=== PATIENT | male | born 1975 | race Hispanic/Latino ===

== ENCOUNTER 2020-02-20 15:45 | Emergency (ER) | payer BC, SELFPAY ==
--- OUTSIDE RECORDS SUMMARY | 2020-02-20 15:48 | XMS REPORT | Clinical Summary ---
:1975 Author Organization [facility] Address [address] [place] [address] Care Team Providers Name Role Phone Sharpless Primary Care Provider Unavailable Allergies Active Allergy Reactions Severity Noted Date Comments Penicillins 12/02/2016 Medications Medication Sig Dispensed Refills Start Date End Date Status amLODIPine (NORVASC) Take 10 mg by 0 Active 10 MG tablet mouth daily. aspirin 81 MG chewable Take 81 mg by 0 Active tablet mouth daily. calcium carbonate Take 1 tablet by 0 Active (TUMS) 500 mg chewable mouth 3 (three) tablet times daily. doxazosin (CARDURA) 2 Take 2 mg by mouth 0 Active MG tablet nightly. famotidine (PEPCID) 20 Take 20 mg by 0 Active MG tablet mouth 2 (two) times daily. meclizine (ANTIVERT) Take 25 mg by 0 Active 25 MG tablet mouth daily. nitroglycerin Place 0.4 mg under 0 Active (NITROSTAT) 0.4 MG SL the tongue every 5 tablet (five) minutes as needed for Chest pain Put 1 pill under tongue every 5min as needed for chest pain.No more than 3 doses in 15min.Call 911 if pain is unrelieved 5min after 1st dose . ondansetron (ZOFRAN) 4 Take 4 mg by mouth 0 Active MG tablet 3 (three) times daily as needed for Nausea. b complex vitamins Take 1 tablet by 0 Active tablet mouth daily. Active Problems Problem Noted Date Diabetic ketoacidosis with coma associated with other specified diabetes 12/03/2016 mellitus Acute metabolic encephalopathy 12/03/2016 Essential hypertension 12/03/2016 DKA (diabetic ketoacidoses) 12/02/2016 Acute hypoxemic respiratory failure 12/02/2016 ESRD (end stage renal disease) 12/02/2016 Seizures 12/02/2016 Immunizations Name Dates Previously Given Next Due Influenza Three-TIV PF 5+ YR 12/03/2016 Social History Tobacco Use Types Packs/Day Years Used Date Never Smoker Sex Assigned at Date Recorded Not on file Job Start Date Occupation Industry Not on file Not on file Not on file Travel History Travel Start Travel End No recent travel history available. Last Filed Vital Signs Not on file Plan of Treatment Not on file Results Not on fileafter 02/19/2019 Insurance Payer Benefit Plan / Subscriber ID Type Phone Address Group [employer]UE [employer]UE [employer] ADV HMO xxxxxxxxxxxx [phone] [id number] [place] [address] Advance Directives For more information, please contact:[place] [id number] [place], [place] [phone] Code Status Date Activated Date Inactivated Comments Full Code 12/02/2016 4:55 PM 12/08/2016 9:11 PM This code status was determined by: Patient
--- OUTSIDE RECORDS SUMMARY | 2020-02-20 15:50 | XMS REPORT | Continuity of Care Document ---
:1975 Author Organization [facility] t Address [address] [place] [address] [address] [place] [address] Care Team Providers Name Role Phone Doctor Unassigned, [place] Attending Clinician Unavailable Guero Torres MD Attending Clinician Scot DALTON Attending Clinician Singer RICHARD Attending Clinician Rolando DALTON Attending Clinician Denis DALTON Attending Clinician Keith DALTON Attending Clinician Paulo Martin DO Attending Clinician Tasneem MORENO Attending Clinician Amandeep Jara MD Attending Clinician [phone] LUCRECIA RENEE Attending Clinician Unavailable Scot DALTON Admitting Clinician Rolando DALTON Admitting Clinician Keith DALTON Admitting Clinician Tasneem MORENO Admitting Clinician Amandeep Jara MD Admitting Clinician [phone] LUCRECIA RENEE Admitting Clinician Unavailable Problems This patient has no known problems. Allergies, Adverse Reactions, Alerts This patient has no known allergies or adverse reactions. Medications This patient has no known medications. Procedures This patient has no known procedures. Encounters Start End Encounter Admission Attending Care Care Encounter Source Date/Time Date/Time Type Type Clinicians Facility Department ID 2019-10-02 2019-10-02 Orders Doctor ANTONIO [id number] 00:00:00 00:00:00 Only Unassigned, TISHA [id number] [place] [facility] 4.2.7.2.686 [id number] 2019-06-05 2019-06-06 Emergency Nancy Torres [facility] 1.2.840 .114 [id number] 07:59:43 14:59:00 Mak Ellison [id number] [place] [id number] [place] [address] [id number] 2019-06-01 2019-06-01 Emergency Luca Jackson [facility] 1.2.840. 114 [id number] 06:56:22 17:52:00 Jesus Marshall [id number] [place] [id number] [place] [address] [id number] [facility] 2019-05-28 2019-05-28 Emergency Andrey Barrios [facility] 1.2.840. 114 [id number] 07:49:46 20:40:00 Jesus Marshall [id number] [place] [id number] [place] [address] [id number] 0 2019-05-24 2019-05-24 Emergency Andrey Barrios [facility] 1.2.840. 114 [id number] 07:36:09 16:15:00 James Parker [id number] [place] [id number] [place] [address] [id number] 2019-05-20 2019-05-20 Emergency Flower Martin [facility] 1.2.8 40.114 [id number] 07:34:17 19:50:00 James Parker [id number] [place] 4.2.7.2.686 [place] [address] [id number] 1 2019-05-15 2019-05-15 Emergency Luca Jackson [facility] 1.2.840. 114 [id number] 07:17:11 18:48:00 Jesus Marshall.1.13.10 [place] 4.2.7.2.686 [place] [id number] 2019-05-09 2019-05-11 Emergency Nancy Torres [facility] 1.2.840 .114 [id number] 07:23:22 15:03:00 Jesus Marshallton 350.1.13.10 [place] 4.2.7.2.686 [place] [id number] 2019-05-07 2019-05-07 Emergency Denis [facility] 1.2.620.314 [id number] 06:36:08 08:19:00 Andreychaitanya Castrejon 350.1.13.10 [place] 4.2.7.2.686 [place] [id number] [facility] 2019-05-03 2019-05-03 Emergency Andrey Barrios [facility] 1.2.840. 114 [id number] 07:04:51 19:40:00 Caleb Boateng 350.1.13.10 [place] 4.2.7.2.686 [place] [id number] 0 2019-04-29 2019-04-29 Emergency Nanyc Torres [facility] 1.2.840 .114 [id number] 06:03:54 16:18:00 Luly Jara Bombay 350.1.13.10 [place] 4.2.7.2.686 [place] [id number] [facility] 2019-04-24 2019-04-24 Emergency Flower Martin [facility] 1.2.8 40.114 [id number] 07:32:53 17:15:00 Mak Ellison 350.1.13.10 [place] 4.2.7.2.686 [place] [id number] 2019-04-20 2019-04-20 Emergency Andrey Barrios [facility] 1.2.840. 114 [id number] 07:35:56 21:13:00 Mak Ellison 350.1.13.10 [place] 4.2.7.2.686 [place] [address] [id number] 2019-04-15 2019-04-15 Emergency Andrey Barrios [facility] 1.2.840. 114 [id number] 06:12:02 17:50:00 Caleb Boateng [id number] [place] 4.2.7.2.686 [place] [id number] [id number] Results Test Description Test Time Test Comments Results Result Comments Source BLOOD CULTURE 2016-12-09 11:00:00 Test Item Value Reference Range Interpretation Comme nts CULTURE ([place]) (test code = 1095) No growth in 5 days BLOOD [id number] 11:00:00 Test Item Value Reference Range Interpretation Comments CULTURE (BEAKER) (test No growth in 5 days code = 1095) ISLET CELL AB [id number] 09:29:00 Test Item Value Reference Range Interpretation Comments ISLET CELL AB See individual AUTOVERIFICATION (test panel test results. code = 2556) POCT-GLUCOSE [id number] 17:52:00 Test Item Value Reference Range Interpretation Comments POC-GLUCOSE METER 360 mg/dL 70-110 H TESTED AT [facility] 6720 ([facility]) (test code = [place] [facility] 1538) [address] CLOSTRIDIUM DIFFICILE TOXIN [id number] 14:10:00 Test Item Value Reference Range Interpretation Comments CLOSTRIDIUM DIFFICILE TOXIN, PCR Not Detected Not Detected ([place]) (test code = 1525) This qualitative real-time polymerase chain reaction assay detects the tcdB gene, encoded on the C.difficile pathogenicity locus (PaLoc). The product of tcdB, toxin B, is a cytotoxin essential for causing C.difficile-associated disease (CDAD) and is found in virtually all toxigenic C.difficile.This assay is performed for patients suspected of having either community-acquired or nosocomial CDAD. Accordingly, only symptomatic patients should be tested and formed stools will be rejected unless ileus is present (i.e., specified when ordering). Patients may be colonized with toxigenic C.difficile strains not causing active disease; therefore, clinical correlation is needed when deciding how to manage patients with a positive test result.The assay has not been validated as a test of cure as amplifiable nucleic acid may persist after effective treatment; therefore, follow-up testing of a positive result is not recommended.POCT-GLUCOSE [id number] 13:02:00 Test Item Value Reference Range Interpretation Comments POC-GLUCOSE METER 265 mg/dL 70-110 H TESTED AT [facility] 6720 ([facility]) (test code = [place] 1538) [address] POCT-GLUCOSE [id number] 07:13:00 Test Item Value Reference Range Interpretation Comments POC-GLUCOSE METER 70 mg/dL 70-110 TESTED AT [place] [address] ([facility]) (test code = [place] [facility] [address] 1538) VANCOMYCIN LEVEL, [id number] 06:54:00 Test Item Value Reference Range Interpretation Comments VANCOMYCIN RANDOM (BEAKER) (test 15.2 ug/mL code = 523) Reference Range: No NormalsBASIC METABOLIC [id number] 06:41:00 Test Item Value Reference Range Interpretation Comments SODIUM (BEAKER) 135 meq/L 136-145 L (test code = 381) POTASSIUM (BEAKER) 3.8 meq/L 3.5-5.1 (test code = 379) CHLORIDE (BEAKER) 100 meq/L 98-107 (test code = 382) CO2 (BEAKER) (test 24 meq/L 22-29 code = 355) BLOOD UREA NITROGEN 16 mg/dL 7-21 (BEAKER) (test code = 354) CREATININE (BEAKER) 4.14 mg/dL 0.57-1.25 H (test code = 358) GLUCOSE RANDOM 40 mg/dL 70-105 LL (BEAKER) (test code = 652) CALCIUM (BEAKER) 8.1 mg/dL 8.4-10.2 L (test code = 697) EGFR (BEAKER) (test 16 mL/min/1.73 ESTIMA CASANDRA GFR IS code = 1092) sq m NOT ACCURATE CREATININE CLEARANCE IN PREDICTING GLOMERULAR FILTRATION RATE . ESTIMATED GFR I S NOT APPLICABLE FOR DIALYSIS PATIEN TS. POCT-GLUCOSE [id number] 06:40:00 Test Item Value Reference Range Interpretation Comments POC-GLUCOSE METER 44 mg/dL 70-110 L Notified Pau Bryant MD/TESTED AT ([facility]) (test code = [place] [address] [place] 1538) [facility] 7703 0 POCT-GLUCOSE [id number] 06:36:00 Test Item Value Reference Range Interpretation Comments POC-GLUCOSE METER 54 mg/dL 70-110 L Notified Pau Bryant MD/TESTED AT ([facility]) (test code = [place] 284988) [facility] 7703 0 BASIC METABOLIC [id number] 06:35:00 Test Item Value Reference Range Interpretation Comments SODIUM (BEAKER) 136 meq/L 136-145 (test code = 381) POTASSIUM (BEAKER) 3.8 meq/L 3.5-5.1 (test code = 379) CHLORIDE (BEAKER) 100 meq/L 98-107 (test code = 382) CO2 (BEAKER) (test 25 meq/L 22-29 code = 355) BLOOD UREA NITROGEN 15 mg/dL 7-21 (BEAKER) (test code = 354) CREATININE (BEAKER) 4.18 mg/dL 0.57-1.25 H (test code = 358) GLUCOSE RANDOM 41 mg/dL 70-105 L (BEAKER) (test code = 652) CALCIUM (BEAKER) 8.1 mg/dL 8.4-10.2 L (test code = 697) EGFR (BEAKER) (test 16 mL/min/1.73 ESTIMA CASANDRA GFR IS code = 1092) sq m NOT ACCURATE CREATININE CLEARANCE IN PREDICTING GLOMERULAR FILTRATION RATE . ESTIMATED GFR I S NOT APPLICABLE FOR DIALYSIS PATIEN TS. POCT-GLUCOSE [id number] 21:14:00 Test Item Value Reference Range Interpretation Comments POC-GLUCOSE METER 396 mg/dL 70-110 H Notified R Manny DALTON/TESTED (BEAKER) (test code = AT [place] 887798) [place] [address]113 0 POCT-GLUCOSE [id number] 18:02:00 Test Item Value Reference Range Interpretation Comments POC-GLUCOSE METER 363 mg/dL 70-110 H Notified Pau Bryant MD/TESTED (BEAKER) (test code = AT [place] 887798) [place] [address] 0 BLOOD [id number] 18:00:00 Test Item Value Reference Range Interpretation Comments CULTURE (BEAKER) (test No growth in 5 days code = 1095) BLOOD [id number] 18:00:00 Test Item Value Reference Range Interpretation Comments CULTURE (BEAKER) (test No growth in 5 days code = 1095) POCT-GLUCOSE [id number] 13:08:00 Test Item Value Reference Range Interpretation Comments POC-GLUCOSE METER 188 mg/dL 70-110 H TESTED AT [place] [address] ([facility]) (test code = [address] [place] 1538) [address] POCT-GLUCOSE [id number] 11:42:00 Test Item Value Reference Range Interpretation Comments POC-GLUCOSE METER 194 mg/dL 70-110 H TESTED AT [place] [address] ([facility] (test code = [place] 1538) [address] VANCOMYCIN LEVEL, [id number] 09:58:00 Test Item Value Reference Range Interpretation Comments VANCOMYCIN RANDOM (BEAKER) (test 12.9 ug/mL code = 523) Reference Range: No NormalsTo be drawn BEFORE dialysis in the dialysis unit. Thank youPOCT-GLUCOSE [id number] 08:52:00 Test Item Value Reference Range Interpretation Comments POC-GLUCOSE METER 272 mg/dL 70-110 H TESTED AT [place] [address] ([facility]) (test code = [place] [facility] 1538) [address] BASIC METABOLIC [id number] 05:09:00 Test Item Value Reference Range Interpretation Comments SODIUM (BEAKER) 134 meq/L 136-145 L (test code = 381) POTASSIUM (BEAKER) 4.1 meq/L 3.5-5.1 (test code = 379) CHLORIDE (BEAKER) 98 meq/L 98-107 (test code = 382) CO2 (BEAKER) (test 23 meq/L 22-29 code = 355) BLOOD UREA NITROGEN 26 mg/dL 7-21 H (BEAKER) (test code = 354) CREATININE (BEAKER) 6.88 mg/dL 0.57-1.25 H (test code = 358) GLUCOSE RANDOM 225 mg/dL 70-105 H (BEAKER) (test code = 652) CALCIUM (BEAKER) 7.9 mg/dL 8.4-10.2 L (test code = 697) EGFR (BEAKER) (test 9 mL/min/1.73 ESTIMAT ED GFR IS code = 1092) sq m NOT ACCURATE CREATININE CLEARANCE IN PREDICTING GLOMERULAR FILTRATION RATE . ESTIMATED GFR I S NOT APPLICABLE FOR DIALYSIS PATIEN TS. POCT-GLUCOSE [id number] 21:32:00 Test Item Value Reference Range Interpretation Comments POC-GLUCOSE METER 388 mg/dL 70-110 H TESTED AT [place] [address] ([facility]) (test code = [place] [facility] 1538) [address] POCT-GLUCOSE [id number] 18:31:00 Test Item Value Reference Range Interpretation Comments POC-GLUCOSE METER 247 mg/dL 70-110 H TESTED AT [facility] 6720 (BEAKER) (test code = [place] [facility] 1538) [address] POCT-GLUCOSE [id number] 10:58:00 Test Item Value Reference Range Interpretation Comments POC-GLUCOSE METER 213 mg/dL 70-110 H TESTED AT [facility] 6720 (BEAKER) (test code = [place] [facility] 1538) [address] CBC W/PLT COUNT & AUTO [id number] 07:02:00 Test Item Value Reference Range Interpretation Comments WHITE BLOOD CELL COUNT (BEAKER) 5.8 K/ L 4.0-10.0 (test code = 775) RED BLOOD CELL COUNT (BEAKER) 3.12 M/ L 4.20-5.80 L (test code = 761) HEMOGLOBIN (BEAKER) (test code = 10.1 GM/DL 13.0-16.8 L 410) HEMATOCRIT (BEAKER) (test code = 29.9 % 40.0-50.0 L 411) MEAN CORPUSCULAR VOLUME (BEAKER) 95.7 fL 82.0-98.0 (test code = 753) MEAN CORPUSCULAR HEMOGLOBIN 32.3 pg 27.0-33.0 (BEAKER) (test code = 751) MEAN CORPUSCULAR HEMOGLOBIN CONC 33.7 GM/DL 32.0-36.0 (BEAKER) (test code = 752) RED CELL DISTRIBUTION WIDTH 15.4 % 10.3-14.2 H (BEAKER) (test code = 412) PLATELET COUNT (BEAKER) (test 183 K/CU MM 150-430 code = 756) MEAN PLATELET VOLUME (BEAKER) 8.2 fL 6.5-10.5 (test code = 754) NUCLEATED RED BLOOD CELLS 0 /100 WBC 0-0 (BEAKER) (test code = 413) NEUTROPHILS RELATIVE PERCENT 70 % (BEAKER) (test code = 429) LYMPHOCYTES RELATIVE PERCENT 18 % (BEAKER) (test code = 430) MONOCYTES RELATIVE PERCENT 7 % (BEAKER) (test code = 431) EOSINOPHILS RELATIVE PERCENT 4 % (BEAKER) (test code = 432) BASOPHILS RELATIVE PERCENT 0 % (BEAKER) (test code = 437) NEUTROPHILS ABSOLUTE COUNT 4.09 K/ L 1.80-8.00 (BEAKER) (test code = 670) LYMPHOCYTES ABSOLUTE COUNT 1.07 K/ L 1.48-4.50 L (BEAKER) (test code = 414) MONOCYTES ABSOLUTE COUNT (BEAKER) 0.43 K/ L 0.00-1.30 (test code = 415) EOSINOPHILS ABSOLUTE COUNT 0.21 K/ L 0.00-0.50 (BEAKER) (test code = 416) BASOPHILS ABSOLUTE COUNT (BEAKER) 0.02 K/ L 0.00-0.20 (test code = 417) 0.00BASIC METABOLIC [id number] 06:25:00 Test Item Value Reference Range Interpretation Comments SODIUM (BEAKER) 139 meq/L 136-145 (test code = 381) POTASSIUM (BEAKER) 4.2 meq/L 3.5-5.1 (test code = 379) CHLORIDE (BEAKER) 103 meq/L 98-107 (test code = 382) CO2 (BEAKER) (test 25 meq/L 22-29 code = 355) BLOOD UREA NITROGEN 16 mg/dL 7-21 (BEAKER) (test code = 354) CREATININE (BEAKER) 5.27 mg/dL 0.57-1.25 H (test code = 358) GLUCOSE RANDOM 118 mg/dL 70-105 H (BEAKER) (test code = 652) CALCIUM (BEAKER) 8.1 mg/dL 8.4-10.2 L (test code = 697) EGFR (BEAKER) (test 12 mL/min/1.73 ESTIMA CASANDRA GFR IS code = 1092) sq m NOT ACCURATE CREATININE CLEARANCE IN PREDICTING GLOMERULAR FILTRATION RATE . ESTIMATED GFR I S NOT APPLICABLE FOR DIALYSIS PATIEN TS. [id number] 06:24:00 Test Item Value Reference Range Interpretation Comments PHOSPHORUS (BEAKER) (test code = 3.8 mg/dL 2.3-4.7 604) [id number] 06:24:00 Test Item Value Reference Range Interpretation Comments MAGNESIUM (BEAKER) (test code = 2.2 mg/dL 1.6-2.6 627) POCT-GLUCOSE [id number] 21:55:00 Test Item Value Reference Range Interpretation Comments POC-GLUCOSE METER 270 mg/dL 70-110 H TESTED AT [place] [address] ([facility]) (test code = [place] 1538) [address] POCT-GLUCOSE [id number] 18:12:00 Test Item Value Reference Range Interpretation Comments POC-GLUCOSE METER 124 mg/dL 70-110 H TESTED AT [place] [address] ([facility]) (test code = [place] 1538) [address] POCT-GLUCOSE [id number] 16:27:00 Test Item Value Reference Range Interpretation Comments POC-GLUCOSE METER 135 mg/dL 70-110 H TESTED AT [place] [address] ([facility]) (test code = [place] 1538) [address] POCT-GLUCOSE [id number] 14:10:00 Test Item Value Reference Range Interpretation Comments POC-GLUCOSE METER 219 mg/dL 70-110 H TESTED AT [place] [address] ([facility]) (test code = [place] 1538) [address] POCT-GLUCOSE [id number] 12:01:00 Test Item Value Reference Range Interpretation Comments POC-GLUCOSE METER 162 mg/dL 70-110 H TESTED AT [place] [address] ([facility]) (test code = [place] 1538) [address] POCT-GLUCOSE [id number] 09:51:00 Test Item Value Reference Range Interpretation Comments POC-GLUCOSE METER 220 mg/dL 70-110 H TESTED AT [place] [address] ([facility]) (test code = [place] 1538) [address] POCT-GLUCOSE [id number] 07:48:00 Test Item Value Reference Range Interpretation Comments POC-GLUCOSE METER 151 mg/dL 70-110 H TESTED AT [place] [address] (BEAKER) (test code = [place] 1538) [address] BASIC METABOLIC [id number] 07:36:00 Test Item Value Reference Range Interpretation Comments SODIUM (BEAKER) 135 meq/L 136-145 L (test code = 381) POTASSIUM (BEAKER) 4.1 meq/L 3.5-5.1 (test code = 379) CHLORIDE (BEAKER) 99 meq/L 98-107 (test code = 382) CO2 (BEAKER) (test 22 meq/L 22-29 code = 355) BLOOD UREA NITROGEN 31 mg/dL 7-21 H (BEAKER) (test code = 354) CREATININE (BEAKER) 8.19 mg/dL 0.57-1.25 H (test code = 358) GLUCOSE RANDOM 93 mg/dL 70-105 (AKER) (test code = 652) CALCIUM (BEAKER) 7.9 mg/dL 8.4-10.2 L (test code = 697) EGFR ([facility]) (test 7 mL/min/1.73 ESTIMAT ED GFR IS code = 1092) sq m NOT ACCURATE CREATININE CLEARANCE IN PREDICTING GLOMERULAR FILTRATION RATE . ESTIMATED GFR I S NOT APPLICABLE FOR DIALYSIS PATIEN TS. POCT-GLUCOSE [id number] 07:06:00 Test Item Value Reference Range Interpretation Comments POC-GLUCOSE METER 98 mg/dL 70-110 TESTED AT [place] [address] ([facility]) (test code = [facility] [address] 1538) POCT-GLUCOSE [id number] 06:27:00 Test Item Value Reference Range Interpretation Comments POC-GLUCOSE METER 63 mg/dL 70-110 L TESTED AT [place] [address] ([facility]) (test code = [facility] [address] 1538) VANCOMYCIN LEVEL, [id number] 04:31:00 Test Item Value Reference Range Interpretation Comments VANCOMYCIN RANDOM (BEAKER) (test 20.8 ug/mL code = 523) Reference Range: No [id number] 04:20:00 Test Item Value Reference Range Interpretation Comments PHOSPHORUS (BEAKER) (test code = 5.4 mg/dL 2.3-4.7 H 604) [id number] 04:20:00 Test Item Value Reference Range Interpretation Comments MAGNESIUM (BEAKER) (test code = 2.1 mg/dL 1.6-2.6 627) POCT-GLUCOSE [id number] 04:16:00 Test Item Value Reference Range Interpretation Comments POC-GLUCOSE METER 99 mg/dL 70-110 TESTED AT [place] [address] ([facility]) (test code = [facility] [address] 1538) CBC W/PLT COUNT & AUTO [id number] 04:07:00 Test Item Value Reference Range Interpretation Comments WHITE BLOOD CELL COUNT (BEAKER) 7.4 K/ L 4.0-10.0 (test code = 775) RED BLOOD CELL COUNT (BEAKER) 3.07 M/ L 4.20-5.80 L (test code = 761) HEMOGLOBIN (BEAKER) (test code = 10.0 GM/DL 13.0-16.8 L 410) HEMATOCRIT (BEAKER) (test code = 29.0 % 40.0-50.0 L 411) MEAN CORPUSCULAR VOLUME (BEAKER) 94.7 fL 82.0-98.0 (test code = 753) MEAN CORPUSCULAR HEMOGLOBIN 32.5 pg 27.0-33.0 (BEAKER) (test code = 751) MEAN CORPUSCULAR HEMOGLOBIN CONC 34.3 GM/DL 32.0-36.0 (BEAKER) (test code = 752) RED CELL DISTRIBUTION WIDTH 15.6 % 10.3-14.2 H (BEAKER) (test code = 412) PLATELET COUNT (BEAKER) (test 151 K/CU MM 150-430 code = 756) MEAN PLATELET VOLUME (BEAKER) 7.9 fL 6.5-10.5 (test code = 754) NUCLEATED RED BLOOD CELLS 0 /100 WBC 0-0 (BEAKER) (test code = 413) NEUTROPHILS RELATIVE PERCENT 79 % (BEAKER) (test code = 429) LYMPHOCYTES RELATIVE PERCENT 10 % (BEAKER) (test code = 430) MONOCYTES RELATIVE PERCENT 8 % (BEAKER) (test code = 431) EOSINOPHILS RELATIVE PERCENT 4 % (BEAKER) (test code = 432) BASOPHILS RELATIVE PERCENT 0 % (BEAKER) (test code = 437) NEUTROPHILS ABSOLUTE COUNT 5.78 K/ L 1.80-8.00 (BEAKER) (test code = 670) LYMPHOCYTES ABSOLUTE COUNT 0.74 K/ L 1.48-4.50 L (BEAKER) (test code = 414) MONOCYTES ABSOLUTE COUNT (BEAKER) 0.57 K/ L 0.00-1.30 (test code = 415) EOSINOPHILS ABSOLUTE COUNT 0.26 K/ L 0.00-0.50 (BEAKER) (test code = 416) BASOPHILS ABSOLUTE COUNT (BEAKER) 0.01 K/ L 0.00-0.20 (test code = 417) 0.00POCT-GLUCOSE [id number] 02:10:00 Test Item Value Reference Range Interpretation Comments POC-GLUCOSE METER 132 mg/dL 70-110 H TESTED AT [place] [address] ([facility]) (test code = [place] Mai [facility] 1538) [address] SPUTUM CULTURE + GRAM [id number] 00:32:00 Test Item Value Reference Range Interpretation Comments CULTURE (BEAKER) 4+ Normal respiratory (test code = 1095) jenelle present GRAM STAIN RESULT 3+ White blood cells (BEAKER) (test code = seen 1123) GRAM STAIN RESULT 0-5 epithelial cells (BEAKER) (test code = 35727) GRAM STAIN RESULT 2+ gram negative rods (BEAKER) (test code = 84949) GRAM STAIN RESULT 3+ gram positive rods (BEAKER) (test code = 056603) GRAM STAIN RESULT 2+ gram positive cocci (BEAKER) (test code = in pairs and clusters 953059) POCT-GLUCOSE [id number] 00:15:00 Test Item Value Reference Range Interpretation Comments POC-GLUCOSE METER 193 mg/dL 70-110 H TESTED AT [place] [address] ([facility]) (test code = [place] [facility] 1538) [address] POCT-GLUCOSE [id number] 22:22:00 Test Item Value Reference Range Interpretation Comments POC-GLUCOSE METER 170 mg/dL 70-110 H TESTED AT [place] [address] ([facility]) [facility] 1538[facility] [address] POCT-GLUCOSE [id number] 20:17:00 Test Item Value Reference Range Interpretation Comments POC-GLUCOSE METER 179 mg/dL 70-110 H TESTED AT [place] [address] (BEAKER) (test code = [facility] Pau [facility] 1538) [address] BASIC METABOLIC [id number] 19:00:00 Test Item Value Reference Range Interpretation Comments SODIUM (BEAKER) 134 meq/L 136-145 L (test code = 381) POTASSIUM (BEAKER) 4.1 meq/L 3.5-5.1 (test code = 379) CHLORIDE (BEAKER) 98 meq/L 98-107 (test code = 382) CO2 (BEAKER) (test 22 meq/L 22-29 code = 355) BLOOD UREA NITROGEN 29 mg/dL 7-21 H (BEAKER) (test code = 354) CREATININE (BEAKER) 7.40 mg/dL 0.57-1.25 H (test code = 358) GLUCOSE RANDOM 156 mg/dL 70-105 H ([facility]) (test code = 652) CALCIUM ([facility]) 8.2 mg/dL 8.4-10.2 L (test code = 697) EGFR ([facility]) (test 8 mL/min/1.73 ESTIMAT ED GFR IS code = 1092) sq m NOT ACCURATE CREATININE CLEARANCE IN PREDICTING GLOMERULAR FILTRATION RATE . ESTIMATED GFR I S NOT APPLICABLE FOR DIALYSIS PATIEN TS. POCT-GLUCOSE [id number] 18:27:00 Test Item Value Reference Range Interpretation Comments POC-GLUCOSE METER 150 mg/dL 70-110 H TESTED AT [place] [address] ([facility]) (test code = MAIDADAVID Mai [facility] 1538) [id number] POCT-GLUCOSE [id number] 15:58:00 Test Item Value Reference Range Interpretation Comments POC-GLUCOSE METER 219 mg/dL 70-110 H TESTED AT [place] [address] ([facility]) (test code = twtrlandDAVID [employer] [facility] 1538) [id number] POCT-GLUCOSE [id number] 14:26:00 Test Item Value Reference Range Interpretation Comments POC-GLUCOSE METER 212 mg/dL 70-110 H TESTED AT [place] [address] ([facility]) (test code = twtr[place]DAVID [employer] [place] 1538) [id number] POCT-GLUCOSE [id number] 12:23:00 Test Item Value Reference Range Interpretation Comments POC-GLUCOSE METER 261 mg/dL 70-110 H TESTED AT [place] [address] ([facility]) (test code = twtrlandDAVID [employer] [place] 1538) [id number] POCT-GLUCOSE [id number] 10:19:00 Test Item Value Reference Range Interpretation Comments POC-GLUCOSE METER 323 mg/dL 70-110 H TESTED AT [place] [id number] ([facility]) (test code = [employer] [place] 1538) [id number] POCT-GLUCOSE [id number] 08:24:00 Test Item Value Reference Range Interpretation Comments POC-GLUCOSE METER 235 mg/dL 70-110 H TESTED AT [place] [id number] ([facility]) (test code = [employer] [place] 1538) [id number] POCT-GLUCOSE [id number] 07:10:00 Test Item Value Reference Range Interpretation Comments POC-GLUCOSE METER 244 mg/dL 70-110 H TESTED AT [facility] 6720 ([facility]AK[facility]) (test code = [facility] [place] 1538) [id number] POCT-GLUCOSE [id number] 06:15:00 Test Item Value Reference Range Interpretation Comments POC-GLUCOSE METER 249 mg/dL 70-110 H TESTED AT [facility] 6720 (BEAKER) (test code = HAL [place] 1538) [id number] CBC W/PLT COUNT & AUTO [id number] 06:05:00 Test Item Value Reference Range Interpretation Comments WHITE BLOOD CELL COUNT ([facility]) 11.1 K/ L 4.0-10.0 H (test code = 775) RED BLOOD CELL COUNT ([facility]) 3.12 M/ L 4.20-5.80 L (test code = 761) HEMOGLOBIN ([facility]) (test code = 10.0 GM/DL 13.0-16.8 L 410) HEMATOCRIT ([facility]AK[facility]) (test code = 29.9 % 40.0-50.0 L 411) MEAN CORPUSCULAR VOLUME (BEAKER) 95.9 fL 82.0-98.0 (test code = 753) MEAN CORPUSCULAR HEMOGLOBIN 32.1 pg 27.0-33.0 (BEAKER) (test code = 751) MEAN CORPUSCULAR HEMOGLOBIN CONC 33.5 GM/DL 32.0-36.0 (BEAKER) (test code = 752) RED CELL DISTRIBUTION WIDTH 16.1 % 10.3-14.2 H (BEAKER) (test code = 412) PLATELET COUNT (BEAKER) (test 154 K/CU MM 150-430 code = 756) MEAN PLATELET VOLUME (BEAKER) 8.5 fL 6.5-10.5 (test code = 754) NUCLEATED RED BLOOD CELLS 0 /100 WBC 0-0 (BEAKER) (test code = 413) NEUTROPHILS RELATIVE PERCENT 87 % (BEAKER) (test code = 429) LYMPHOCYTES RELATIVE PERCENT 6 % (BEAKER) (test code = 430) MONOCYTES RELATIVE PERCENT 6 % (BEAKER) (test code = 431) EOSINOPHILS RELATIVE PERCENT 1 % (BEAKER) (test code = 432) BASOPHILS RELATIVE PERCENT 0 % (BEAKER) (test code = 437) NEUTROPHILS ABSOLUTE COUNT 9.64 K/ L 1.80-8.00 H (BEAKER) (test code = 670) LYMPHOCYTES ABSOLUTE COUNT 0.72 K/ L 1.48-4.50 L (BEAKER) (test code = 414) MONOCYTES ABSOLUTE COUNT (BEAKER) 0.64 K/ L 0.00-1.30 (test code = 415) EOSINOPHILS ABSOLUTE COUNT 0.08 K/ L 0.00-0.50 (BEAKER) (test code = 416) BASOPHILS ABSOLUTE COUNT (BEAKER) 0.00 K/ L 0.00-0.20 (test code = 417) 0.00BASIC METABOLIC [id number] 05:11:00 Test Item Value Reference Range Interpretation Comments SODIUM (BEAKER) 134 meq/L 136-145 L (test code = 381) POTASSIUM (BEAKER) 4.8 meq/L 3.5-5.1 Specimen slightly (test code = 379) hemolyzed CHLORIDE (BEAKER) 101 meq/L 98-107 (test code = 382) CO2 (BEAKER) (test 20 meq/L 22-29 L code = 355) BLOOD UREA NITROGEN 26 mg/dL 7-21 H (BEAKER) (test code = 354) CREATININE (BEAKER) 6.46 mg/dL 0.57-1.25 H Specimen slightly (test code = 358) hemolyzed GLUCOSE RANDOM 177 mg/dL 70-105 H (BEAKER) (test code = 652) CALCIUM (BEAKER) 8.0 mg/dL 8.4-10.2 L (test code = 697) EGFR (BEAKER) (test 9 mL/min/1.73 ESTIMAT ED GFR IS code = 1092) sq m NOT ACCURATE CREATININE CLEARANCE IN PREDICTING GLOMERULAR FILTRATION RATE . ESTIMATED GFR I S NOT APPLICABLE FOR DIALYSIS PATIEN TS. [id number] 05:05:00 Test Item Value Reference Range Interpretation Comments MAGNESIUM (BEAKER) 2.3 mg/dL 1.6-2.6 Specimen slightly (test code = 627) hemolyzed [id number] 05:05:00 Test Item Value Reference Range Interpretation Comments PHOSPHORUS (BEAKER) 5.9 mg/dL 2.3-4.7 H Specimen slightly (test code = 604) hemolyzed POCT-GLUCOSE [id number] 04:02:00 Test Item Value Reference Range Interpretation Comments POC-GLUCOSE METER 187 mg/dL 70-110 H TESTED AT [place] [address] ([facility] 1538[facility] [address] POCT-GLUCOSE [id number] 02:22:00 Test Item Value Reference Range Interpretation Comments POC-GLUCOSE METER 163 mg/dL 70-110 H TESTED AT [place] [address] ([facility]) ([facility] 1538) [address] POCT-GLUCOSE [id number] 00:54:00 Test Item Value Reference Range Interpretation Comments POC-GLUCOSE METER 239 mg/dL 70-110 H TESTED AT [place] [address] ([facility]) (test code = [facility] 1538) [address] POCT-GLUCOSE [id number] 00:11:00 Test Item Value Reference Range Interpretation Comments POC-GLUCOSE METER 29 mg/dL 70-110 LL TESTED AT [place] [address] ([facility]) (test code = [facility] [place] [facility] [address] 1538) POCT-GLUCOSE [id number] 21:35:00 Test Item Value Reference Range Interpretation Comments POC-GLUCOSE METER 100 mg/dL 70-110 TESTED AT [place] [address] ([facility]) (test code = [facility] [place] [facility] 1538) [address] POCT-GLUCOSE [id number] 20:24:00 Test Item Value Reference Range Interpretation Comments POC-GLUCOSE METER 57 mg/dL 70-110 L TESTED AT [place] [address] ([facility]) (test code = [facility] [place] [facility] [address] 1538) BASIC METABOLIC [id number] 18:11:00 Test Item Value Reference Range Interpretation Comments SODIUM (BEAKER) 137 meq/L 136-145 (test code = 381) POTASSIUM (BEAKER) 3.9 meq/L 3.5-5.1 (test code = 379) CHLORIDE (BEAKER) 103 meq/L 98-107 (test code = 382) CO2 (BEAKER) (test 24 meq/L 22-29 code = 355) BLOOD UREA NITROGEN 23 mg/dL 7-21 H (BEAKER) (test code = 354) CREATININE (BEAKER) 5.97 mg/dL 0.57-1.25 H (test code = 358) GLUCOSE RANDOM 89 mg/dL 70-105 (BEAKER) (test code = 652) CALCIUM (BEAKER) 8.0 mg/dL 8.4-10.2 L (test code = 697) EGFR ([facility]) (test 10 mL/min/1.73 ESTIMA CASANDRA GFR IS code = 1092) sq m NOT ACCURATE CREATININE CLEARANCE IN PREDICTING GLOMERULAR FILTRATION RATE . ESTIMATED GFR I S NOT APPLICABLE FOR DIALYSIS PATIEN TS. POCT-GLUCOSE [id number] 17:33:00 Test Item Value Reference Range Interpretation Comments POC-GLUCOSE METER 87 mg/dL 70-110 TESTED AT [place] [address] ([facility]) (test code = [facility] [address] 1538) POCT-GLUCOSE [id number] 17:33:00 Test Item Value Reference Range Interpretation Comments POC-GLUCOSE METER 54 mg/dL 70-110 L Notified Pau Bryant MD/TESTED AT ([facility]) (test code = [address] 1538) [facility] [address] POCT-GLUCOSE [id number] 14:05:00 Test Item Value Reference Range Interpretation Comments POC-GLUCOSE METER 159 mg/dL 70-110 H TESTED AT [place] [address] ([facility]) (test code = [facility] 1538) [address] POCT-GLUCOSE [id number] 12:26:00 Test Item Value Reference Range Interpretation Comments POC-GLUCOSE METER 247 mg/dL 70-110 H TESTED AT [place] [address] ([facility]) (test code = [facility] 1538) [address] BASIC METABOLIC [id number] 11:20:00 Test Item Value Reference Range Interpretation Comments SODIUM (BEAKER) 136 meq/L 136-145 (test code = 381) POTASSIUM (BEAKER) 3.9 meq/L 3.5-5.1 (test code = 379) CHLORIDE (BEAKER) 101 meq/L 98-107 (test code = 382) CO2 (BEAKER) (test 24 meq/L 22-29 code = 355) BLOOD UREA NITROGEN 21 mg/dL 7-21 (BEAKER) (test code = 354) CREATININE (BEAKER) 5.47 mg/dL 0.57-1.25 H (test code = 358) GLUCOSE RANDOM 166 mg/dL 70-105 H (BEAKER) (test code = 652) CALCIUM (BEAKER) 8.0 mg/dL 8.4-10.2 L (test code = 697) EGFR (BEAKER) (test 11 mL/min/1.73 ESTIMA CASANDRA GFR IS code = 1092) sq m NOT ACCURATE CREATININE CLEARANCE IN PREDICTING GLOMERULAR FILTRATION RATE . ESTIMATED GFR I S NOT APPLICABLE FOR DIALYSIS PATIEN TS. [id number] 11:14:00 Test Item Value Reference Range Interpretation Comments MAGNESIUM (BEAKER) (test code = 2.2 mg/dL 1.6-2.6 627) CBC W/PLT COUNT & AUTO [id number] 11:14:00 Test Item Value Reference Range Interpretation Comments WHITE BLOOD CELL COUNT (BEAKER) 13.9 K/ L 4.0-10.0 H (test code = 775) RED BLOOD CELL COUNT (BEAKER) 2.92 M/ L 4.20-5.80 L (test code = 761) HEMOGLOBIN (BEAKER) (test code = 9.3 GM/DL 13.0-16.8 L 410) HEMATOCRIT (BEAKER) (test code = 27.2 % 40.0-50.0 L 411) MEAN CORPUSCULAR VOLUME (BEAKER) 93.3 fL 82.0-98.0 (test code = 753) MEAN CORPUSCULAR HEMOGLOBIN 31.8 pg 27.0-33.0 (BEAKER) (test code = 751) MEAN CORPUSCULAR HEMOGLOBIN CONC 34.1 GM/DL 32.0-36.0 (BEAKER) (test code = 752) RED CELL DISTRIBUTION WIDTH 15.1 % 10.3-14.2 H (BEAKER) (test code = 412) PLATELET COUNT (BEAKER) (test 148 K/CU MM 150-430 L code = 756) MEAN PLATELET VOLUME (BEAKER) 8.0 fL 6.5-10.5 (test code = 754) NUCLEATED RED BLOOD CELLS 0 /100 WBC 0-0 (BEAKER) (test code = 413) NEUTROPHILS RELATIVE PERCENT 88 % (BEAKER) (test code = 429) LYMPHOCYTES RELATIVE PERCENT 6 % (BEAKER) (test code = 430) MONOCYTES RELATIVE PERCENT 5 % (BEAKER) (test code = 431) EOSINOPHILS RELATIVE PERCENT 1 % (BEAKER) (test code = 432) BASOPHILS RELATIVE PERCENT 1 % (BEAKER) (test code = 437) NEUTROPHILS ABSOLUTE COUNT 12.20 K/ L 1.80-8.00 H (BEAKER) (test code = 670) LYMPHOCYTES ABSOLUTE COUNT 0.85 K/ L 1.48-4.50 L (BEAKER) (test code = 414) MONOCYTES ABSOLUTE COUNT (BEAKER) 0.64 K/ L 0.00-1.30 (test code = 415) EOSINOPHILS ABSOLUTE COUNT 0.19 K/ L 0.00-0.50 (BEAKER) (test code = 416) BASOPHILS ABSOLUTE COUNT (BEAKER) 0.07 K/ L 0.00-0.20 (test code = 417) 0.00POCT-GLUCOSE [id number] 10:17:00 Test Item Value Reference Range Interpretation Comments POC-GLUCOSE METER 172 mg/dL 70-110 H TESTED AT [place] [address] ([facility]) (test code = [facility] 1538) [address] POCT-GLUCOSE [id number] 10:17:00 Test Item Value Reference Range Interpretation Comments POC-GLUCOSE METER 167 mg/dL 70-110 H TESTED AT [place] [address] ([facility]) (test code = [facility] 1538) [address] POCT-GLUCOSE [id number] 10:17:00 Test Item Value Reference Range Interpretation Comments POC-GLUCOSE METER 176 mg/dL 70-110 H TESTED AT [place] [address] ([facility]) (test code = [facility] 1538) [address] [id number] 08:17:00 Test Item Value Reference Range Interpretation Comments FERRITIN (AKER) (test code = 361) 347 ng/mL 5-275 H Effective 08/05/2014: Reference Range ChangeNew: Male 5-275 Previous: Male 22-322 Female 5-275 Female 10-291VITAMIN D, 25-HYDROXY 2016-12-03 08:17:00 Test Item Value Reference Range Interpretation Comments VITAMIN D 25-OH (BEAKER) (test 13.7 ng/mL 13.0-47.8 code = 2764) IRON, TIBC, % SAT. (WITHOUT FERRITIN)2016-12-03 07:45:00 Test Item Value Reference Range Interpretation Comments IRON (BEAKER) (test code = 547) 11 ug/dL 40-160 L TOTAL IRON BINDING CAPACITY 181 ug/dL 250-450 L (BEAKER) (test code = 769) IRON % SATURATION (2) (BEAKER) 6 % 20-55 L (test code = 3217) VANCOMYCIN LEVEL, [id number] 06:52:00 Test Item Value Reference Range Interpretation Comments VANCOMYCIN RANDOM (BEAKER) (test 12.8 ug/mL code = 523) Reference Range: No NormalsHold further dosing for vancomycin level > 20, alert MD and RphPOCT-GLUCOSE [id number] 06:16:00 Test Item Value Reference Range Interpretation Comments POC-GLUCOSE METER 179 mg/dL 70-110 H TESTED AT [facility] ([facility]) (test code = [place] [facility] 1538) [address] POCT-GLUCOSE [id number] 05:08:00 Test Item Value Reference Range Interpretation Comments POC-GLUCOSE METER 185 mg/dL 70-110 H TESTED AT [place] [address] ([facility]) (test code = [place] [facility] 1538) [address] PTH, [id number] 05:01:00 Test Item Value Reference Range Interpretation Comments PARATHYROID HORMONE INTACT 114.5 pg/mL 8.5-72.5 H (BEAKER) (test code = 577) Effective 08/05/2014: Reference Range ChangeNew: 8.5-72.5 Previous: 15.0-90.0 BASIC METABOLIC [id number] 04:53:00 Test Item Value Reference Range Interpretation Comments SODIUM (BEAKER) 136 meq/L 136-145 (test code = 381) POTASSIUM (BEAKER) 3.7 meq/L 3.5-5.1 (test code = 379) CHLORIDE (BEAKER) 101 meq/L 98-107 (test code = 382) CO2 (BEAKER) (test 26 meq/L 22-29 code = 355) BLOOD UREA NITROGEN 19 mg/dL 7-21 (BEAKER) (test code = 354) CREATININE (BEAKER) 5.01 mg/dL 0.57-1.25 H (test code = 358) GLUCOSE RANDOM 121 mg/dL 70-105 H (BEAKER) (test code = 652) CALCIUM (BEAKER) 8.1 mg/dL 8.4-10.2 L (test code = 697) EGFR (BEAKER) (test 13 mL/min/1.73 ESTIMA CASANDRA GFR IS code = 1092) sq m NOT ACCURATE CREATININE CLEARANCE IN PREDICTING GLOMERULAR FILTRATION RATE . ESTIMATED GFR I S NOT APPLICABLE FOR DIALYSIS PATIEN TS. [id number] 04:52:00 Test Item Value Reference Range Interpretation Comments PHOSPHORUS (BEAKER) (test code = 3.4 mg/dL 2.3-4.7 604) POCT-GLUCOSE [id number] 04:18:00 Test Item Value Reference Range Interpretation Comments POC-GLUCOSE METER 134 mg/dL 70-110 H TESTED AT [place] [address] (BEAKER) (test code = [facility] 1538) [address] POCT-GLUCOSE [id number] 03:10:00 Test Item Value Reference Range Interpretation Comments POC-GLUCOSE METER 161 mg/dL 70-110 H TESTED AT [place] [address] (BEAKER) (test code = [facility] 1538) [address] POCT-GLUCOSE [id number] 02:13:00 Test Item Value Reference Range Interpretation Comments POC-GLUCOSE METER 173 mg/dL 70-110 H TESTED AT [place] [address] ([facility]) (test code = [facility] 1538) [address] BASIC METABOLIC [id number] 01:40:00 Test Item Value Reference Range Interpretation Comments SODIUM (BEAKER) 137 meq/L 136-145 (test code = 381) POTASSIUM (BEAKER) 3.2 meq/L 3.5-5.1 L (test code = 379) CHLORIDE (BEAKER) 101 meq/L 98-107 (test code = 382) CO2 (BEAKER) (test 21 meq/L 22-29 L code = 355) BLOOD UREA NITROGEN 17 mg/dL 7-21 (BEAKER) (test code = 354) CREATININE (BEAKER) 4.19 mg/dL 0.57-1.25 H (test code = 358) GLUCOSE RANDOM 132 mg/dL 70-105 H (BEAKER) (test code = 652) CALCIUM (BEAKER) 8.1 mg/dL 8.4-10.2 L (test code = 697) EGFR (BEAKER) (test 16 mL/min/1.73 ESTIMA CASANDRA GFR IS code = 1092) sq m NOT ACCURATE CREATININE CLEARANCE IN PREDICTING GLOMERULAR FILTRATION RATE . ESTIMATED GFR I S NOT APPLICABLE FOR DIALYSIS PATIEN TS. POCT-GLUCOSE [id number] 01:10:00 Test Item Value Reference Range Interpretation Comments POC-GLUCOSE METER 114 mg/dL 70-110 H TESTED AT [place] [address] ([facility]) (test code = [facility] 1538) [address] POCT-GLUCOSE [id number] 00:44:00 Test Item Value Reference Range Interpretation Comments POC-GLUCOSE METER 152 mg/dL 70-110 H TESTED AT [place] [address] ([facility]) (test code = [facility] 1538) [address] POCT-GLUCOSE [id number] 23:07:00 Test Item Value Reference Range Interpretation Comments POC-GLUCOSE METER 162 mg/dL 70-110 H TESTED AT [place] [address] ([facility]) (test code = [facility] 1538) [address] POCT-GLUCOSE [id number] 22:12:00 Test Item Value Reference Range Interpretation Comments POC-GLUCOSE METER 115 mg/dL 70-110 H TESTED AT [place] [address] ([facility]) (test code = [facility] 1538) [address] POCT-GLUCOSE [id number] 21:20:00 Test Item Value Reference Range Interpretation Comments POC-GLUCOSE METER 88 mg/dL 70-110 TESTED AT [place] [address] ([facility]) (test code = [facility] [address] 1538) POCT-GLUCOSE [id number] 20:10:00 Test Item Value Reference Range Interpretation Comments POC-GLUCOSE METER 109 mg/dL 70-110 TESTED AT [place] [address] ([facility]) (test code = [facility] 1538) [address] HEPATITIS B SURFACE [id number] 19:53:00 Test Item Value Reference Range Interpretation Comments HEPATITIS B SURFACE ANTIGEN (2) Nonreactive Nonreactive (BEAKER) (test code = 2585) BASIC METABOLIC [id number] 19:35:00 Test Item Value Reference Range Interpretation Comments SODIUM (BEAKER) 128 meq/L 136-145 L (test code = 381) POTASSIUM (BEAKER) 4.9 meq/L 3.5-5.1 (test code = 379) CHLORIDE (BEAKER) 101 meq/L 98-107 (test code = 382) CO2 (BEAKER) (test 15 meq/L 22-29 L code = 355) BLOOD UREA NITROGEN 55 mg/dL 7-21 H (BEAKER) (test code = 354) CREATININE (BEAKER) 10.06 mg/dL 0.57-1.25 H (test code = 358) GLUCOSE RANDOM 120 mg/dL 70-105 H (BEAKER) (test code = 652) CALCIUM (BEAKER) 7.9 mg/dL 8.4-10.2 L (test code = 697) EGFR (BEAKER) (test 6 mL/min/1.73 ESTIMAT ED GFR IS code = 1092) sq m NOT ACCURATE CREATININE CLEARANCE IN PREDICTING GLOMERULAR FILTRATION RATE . ESTIMATED GFR I S NOT APPLICABLE FOR DIALYSIS PATIEN TS. POCT-GLUCOSE [id number] 19:14:00 Test Item Value Reference Range Interpretation Comments POC-GLUCOSE METER 179 mg/dL 70-110 H TESTED AT [facility] 67 [facility] (test code = [facility] 1538) [address] POCT-GLUCOSE [id number] 17:57:00 Test Item Value Reference Range Interpretation Comments POC-GLUCOSE METER 173 mg/dL 70-110 H TESTED AT [place] [address] ([facility]) (test code = [facility] 1538) [address] BASIC METABOLIC [id number] 16:42:00 Test Item Value Reference Range Interpretation Comments SODIUM (BEAKER) 132 meq/L 136-145 L (test code = 381) POTASSIUM (BEAKER) 3.6 meq/L 3.5-5.1 (test code = 379) CHLORIDE (BEAKER) 112 meq/L 98-107 H (test code = 382) CO2 (BEAKER) (test 11 meq/L 22-29 L code = 355) BLOOD UREA NITROGEN 42 mg/dL 7-21 H (BEAKER) (test code = 354) CREATININE (BEAKER) 7.21 mg/dL 0.57-1.25 H (test code = 358) GLUCOSE RANDOM 198 mg/dL 70-105 H (BEAKER) (test code = 652) CALCIUM (BEAKER) 6.1 mg/dL 8.4-10.2 L (test code = 697) EGFR (BEAKER) (test 8 mL/min/1.73 ESTIMAT ED GFR IS code = 1092) sq m NOT ACCURATE CREATININE CLEARANCE IN PREDICTING GLOMERULAR FILTRATION RATE . ESTIMATED GFR I S NOT APPLICABLE FOR DIALYSIS PATIEN TS. POCT-GLUCOSE [id number] 15:59:00 Test Item Value Reference Range Interpretation Comments POC-GLUCOSE METER 289 mg/dL 70-110 H TESTED AT [place] [address] ([facility]) (test code = HAL [facility] 1538) [address] POCT-GLUCOSE [id number] 15:23:00 Test Item Value Reference Range Interpretation Comments POC-GLUCOSE METER 296 mg/dL 70-110 H TESTED AT [place] [address] ([facility]) (test code = [facility] [place] [facility] 1538) [address] POCT-GLUCOSE [id number] 15:23:00 Test Item Value Reference Range Interpretation Comments POC-GLUCOSE METER 342 mg/dL 70-110 H TESTED AT [place] [address] ([facility]) (test code = [facility] 1538) [address] BASIC METABOLIC [id number] 12:33:00 Test Item Value Reference Range Interpretation Comments SODIUM (BEAKER) 126 meq/L 136-145 L (test code = 381) POTASSIUM (BEAKER) 5.8 meq/L 3.5-5.1 H (test code = 379) CHLORIDE (BEAKER) 99 meq/L 98-107 (test code = 382) CO2 (BEAKER) (test 14 meq/L 22-29 L code = 355) BLOOD UREA NITROGEN 53 mg/dL 7-21 H (BEAKER) (test code = 354) CREATININE (BEAKER) 9.36 mg/dL 0.57-1.25 H (test code = 358) GLUCOSE RANDOM 268 mg/dL 70-105 H (BEAKER) (test code = 652) CALCIUM (BEAKER) 7.8 mg/dL 8.4-10.2 L (test code = 697) EGFR (BEAKER) (test 6 mL/min/1.73 ESTIMAT ED GFR IS code = 1092) sq m NOT ACCURATE CREATININE CLEARANCE IN PREDICTING GLOMERULAR FILTRATION RATE . ESTIMATED GFR I S NOT APPLICABLE FOR DIALYSIS PATIEN TS. POCT-GLUCOSE [id number] 12:23:00 Test Item Value Reference Range Interpretation Comments POC-GLUCOSE METER 231 mg/dL 70-110 H TESTED AT [place] [address] ([facility]) (test code = [facility] 1538) [address] HEMOGLOBIN [id number] 11:38:00 Test Item Value Reference Range Interpretation Comments HEMOGLOBIN A1C (BEAKER) (test code = 9.9 % 4.3-6.1 H 368) POCT-GLUCOSE [id number] 11:09:00 Test Item Value Reference Range Interpretation Comments POC-GLUCOSE METER 212 mg/dL 70-110 H TESTED AT [facility] 6720 ([facility]) (test code = [facility] [place] 1538) [address] BASIC METABOLIC [id number] 10:52:00 Test Item Value Reference Range Interpretation Comments SODIUM (BEAKER) 127 meq/L 136-145 L (test code = 381) POTASSIUM (BEAKER) 5.1 meq/L 3.5-5.1 (test code = 379) CHLORIDE (BEAKER) 100 meq/L 98-107 (test code = 382) CO2 (BEAKER) (test 14 meq/L 22-29 L code = 355) BLOOD UREA NITROGEN 52 mg/dL 7-21 H (BEAKER) (test code = 354) CREATININE (BEAKER) 9.17 mg/dL 0.57-1.25 H (test code = 358) GLUCOSE RANDOM 203 mg/dL 70-105 H (BEAKER) (test code = 652) CALCIUM (BEAKER) 7.8 mg/dL 8.4-10.2 L (test code = 697) EGFR (BEAKER) (test 6 mL/min/1.73 ESTIMAT ED GFR IS code = 1092) sq m NOT ACCURATE CREATININE CLEARANCE IN PREDICTING GLOMERULAR FILTRATION RATE . ESTIMATED GFR I S NOT APPLICABLE FOR DIALYSIS PATIEN TS. [id number] 10:31:00 Test Item Value Reference Range Interpretation Comments MAGNESIUM (BEAKER) (test code = 2.4 mg/dL 1.6-2.6 627) POCT-GLUCOSE [id number] 10:17:00 Test Item Value Reference Range Interpretation Comments POC-GLUCOSE METER 202 mg/dL 70-110 H TESTED AT [facility] 6720 (BEAKER) (test code = [facility] [place] 1538) [address] TROPONIN [id number] 10:16:00 Test Item Value Reference Range Interpretation Comments TROPONIN I (BEAKER) (test code = 0.03 ng/mL 0.00-0.03 397) Effective 08/05/2014: Reference Range ChangeNew: 0.00-0.03 Previous 0.00- 0.15Troponin I (TnI) levels must be interpreted in the context of the presenting symptoms and the clinical findings. Elevated TnI levels indicate myocardial damage, but are not specific for ischemic heart disease. Elevated TnI levels are seen in patients with other cardiac conditions (including myocarditis and congestive heartfailure), and slight TnI elevations occur in patients with other conditions, including sepsis, renalfailure, acidosis, acute neurological disease, and persistent tachyarrhythmia.BLOOD GAS, [id number] 09:27:00 Test Item Value Reference Range Interpretation Comments PH VENOUS (BEAKER) (test code = 7.30 7.32-7.42 L 701) PCO2 VENOUS (BEAKER) (test code 14 mmHg 41-51 LL = 755) PO2 VENOUS (BEAKER) (test code = 72 mmHg 25-40 H 702) O2 SATURATION VENOUS (BEAKER) 93.6 % 40.0-70.0 H (test code = 703) HCO3 VENOUS (BEAKER) (test code 7 mmol/L 21-29 LL = 705) BASE EXCESS VENOUS (BEAKER) -18.4 mmol/L -2.0-3.0 L (test code = 704) PATIENT TEMPERATURE (BEAKER) 37.0 C (test code = 1818) FIO2 (BEAKER) (test code = 1819) 21.0 % POCT-GLUCOSE [id number] 09:19:00 Test Item Value Reference Range Interpretation Comments POC-GLUCOSE METER 179 mg/dL 70-110 H TESTED AT [facility] 6720 (BEAKER) (test code = HAL [place] 1538) [address] LACTIC ACID, VENOUS, WHOLE [id number] 09:13:00 Test Item Value Reference Range Interpretation Comments LACTATE BLOOD VENOUS (2) (BEAKER) 1.5 mmol/L 0.5-2.2 (test code = 2872) Effective 01/20/2016: Units/Reference Range ChangeNew: 0.5-2.2 mmol/L Previous: 5-20 mg/dLKETONE, [id number] 08:51:00 Test Item Value Reference Range Interpretation Comments KETONES, BLOOD (BEAKER) (test code 0.0 mmol/L <0.4 = 1103) POCT-GLUCOSE [id number] 08:08:00 Test Item Value Reference Range Interpretation Comments POC-GLUCOSE METER 211 mg/dL 70-110 H TESTED AT [place] [address] ([facility]) (test code = HAL Mai [facility] 1538) [address] POCT-GLUCOSE [id number] 07:30:00 Test Item Value Reference Range Interpretation Comments POC-GLUCOSE METER 230 mg/dL 70-110 H TESTED AT [place] [address] ([facility]) (test code = HAL Mai [facility] 1538) [address] POCT-GLUCOSE [id number] 06:05:00 Test Item Value Reference Range Interpretation Comments POC-GLUCOSE METER 349 mg/dL 70-110 H Notified Pau Bryant MD/TESTED ([facility]) (test code = AT [address]) [facility] 7[address] 0 [id number] 05:46:00 Test Item Value Reference Range Interpretation Comments GLUCOSE RANDOM ([facility]) (test code 472 mg/dL 70-105 HH = 652) Effective 08/05/2014: Reference Range Change-Adult onlyNew: 70-105 Previous: 70-110If last glucose was less than 500, may do bedside glucose instead of serum glucose.[id number] 05:31:00 Test Item Value Reference Range Interpretation Comments POTASSIUM ([facility]) (test code = 4.8 meq/L 3.5-5.1 379) If last glucose was less than 500, may do bedside glucose instead of serum glucose.KETONE, [id number] 05:16:00 Test Item Value Reference Range Interpretation Comments KETONES, BLOOD ([facility]) (test code 0.0 mmol/L <0.4 = 1103) POCT-GLUCOSE [id number] 05:00:00 Test Item Value Reference Range Interpretation Comments POC-GLUCOSE METER 456 mg/dL 70-110 HH TESTED AT [place] [address] ([facility]) (test code = HAL Mai [facility] 1538) [id number] POCT-GLUCOSE [id number] 04:08:00 Test Item Value Reference Range Interpretation Comments POC-GLUCOSE METER > mg/dL 70-110 HH OUTSIDE ME ASURING ([facility]) (test code [facility]ANGETES CASANDRA AT [place] [address] = 1538) [facility] [address] [id number] 03:41:00 Test Item Value Reference Range Interpretation Comments GLUCOSE RANDOM (BEAKER) (test code 705 mg/dL 70-105 HH = 652) Effective 08/05/2014: Reference Range Change-Adult onlyNew: 70-105 Previous: 70-110If last glucose was less than 500, may do bedside glucose instead of serum glucose.URINALYSIS W/ REFLEX URINE [id number] 03:02:00 Test Item Value Reference Range Interpretation Comments COLOR (BEAKER) (test code = 470) Light Yellow CLARITY (BEAKER) (test code = Hazy 469) SPECIFIC GRAVITY UA (BEAKER) 1.016 1.001-1.035 (test code = 468) PH UA (BEAKER) (test code = 467) 6.0 5.0-8.0 PROTEIN UA (BEAKER) (test code = >600 mg/dL Negative A 464) GLUCOSE UA (BEAKER) (test code = >1000 mg/dL Negative A 365) KETONES UA (BEAKER) (test code = 10 mg/dL Negative A 371) BILIRUBIN UA (BEAKER) (test code Negative Negative = 462) BLOOD UA (BEAKER) (test code = Small Negative A 461) NITRITE UA (BEAKER) (test code = Negative Negative 465) LEUKOCYTE ESTERASE UA (BEAKER) Negative Negative (test code = 466) UROBILINOGEN UA (BEAKER) (test 0.2 mg/dL 0.2-1.0 code = 463) RBC UA (BEAKER) (test code = 33 /HPF 519) WBC UA (BEAKER) (test code = 4 /HPF 520) BACTERIA (BEAKER) (test code = Few 517) MUCUS (BEAKER) (test code = Occasional 1574) SQUAMOUS EPITHELIAL (BEAKER) 10 /HPF (test code = 516) GRANULAR CASTS (BEAKER) (test 20 /LPF code = 515) AMORPHOUS CRYSTALS (BEAKER) Many (test code = 1584) SOURCE(BEAKER) (test code = 3629) [id number] 02:51:00 Test Item Value Reference Range Interpretation Comments GLUCOSE RANDOM (BEAKER) (test code 684 mg/dL 70-105 HH = 652) Effective 08/05/2014: Reference Range Change-Adult onlyNew: 70-105 Previous: 70-110If last glucose was less than 500, may do bedside glucose instead of serum glucose.COMPREHENSIVE METABOLIC [id number] 02:51:00 Test Item Value Reference Range Interpretation Comments TOTAL PROTEIN 5.7 gm/dL 6.0-8.3 L (BEAKER) (test code = 770) ALBUMIN (BEAKER) 3.5 g/dL 3.5-5.0 (test code = 1145) ALKALINE PHOSPHATASE 104 U/L 40-150 (BEAKER) (test code = 346) BILIRUBIN TOTAL 0.4 mg/dL 0.2-1.2 (BEAKER) (test code = 377) SODIUM (BEAKER) (test 123 meq/L 136-145 L code = 381) POTASSIUM (BEAKER) 4.8 meq/L 3.5-5.1 (test code = 379) CHLORIDE (BEAKER) 95 meq/L 98-107 L (test code = 382) CO2 (BEAKER) (test 11 meq/L 22-29 L code = 355) BLOOD UREA NITROGEN 49 mg/dL 7-21 H (BEAKER) (test code = 354) CREATININE (BEAKER) 9.01 mg/dL 0.57-1.25 H (test code = 358) GLUCOSE RANDOM 684 mg/dL 70-105 HH (BEAKER) (test code = 652) CALCIUM (BEAKER) 7.9 mg/dL 8.4-10.2 L (test code = 697) AST (SGOT) (BEAKER) 22 U/L 5-34 (test code = 353) ALT (SGPT) (BEAKER) 24 U/L 6-55 (test code = 347) EGFR (BEAKER) (test 6 mL/min/1.73 ESTIMAT ED GFR IS code = 1092) sq m NOT ACCURATE CREATININE CLEARANCE IN PREDICTING GLOMERULAR FILTRATION RATE . ESTIMATED GFR I S NOT APPLICABLE FOR DIALYSIS PATIEN TS. If last glucose was less than 500, may do bedside glucose instead of serum glucose.[id number] 02:50:00 Test Item Value Reference Range Interpretation Comments THYROID STIMULATING HORMONE 2.15 uIU/mL 0.35-4.94 (BEAKER) (test code = 772) [id number] 02:45:00 Test Item Value Reference Range Interpretation Comments MAGNESIUM (BEAKER) (test code = 2.0 mg/dL 1.6-2.6 627) [id number] 02:45:00 Test Item Value Reference Range Interpretation Comments PHOSPHORUS (BEAKER) (test code = 4.4 mg/dL 2.3-4.7 604) CREATINE KINASE (CK), TOTAL AND [id number] 02:41:00 Test Item Value Reference Range Interpretation Comments CREATINE KINASE TOTAL (BEAKER) 140 U/L 29-200 (test code = 380) CREATINE KINASE-MB (BEAKER) (test 7.2 ng/mL 0.0-6.6 H code = 750) CREATINE KINASE-MB INDEX (BEAKER) 5.1 % (test code = 395) Effective 08/05/2014: CK-MB Reference Range ChangeNew: 0.0-6.6 Previous: 0.0-4.9CK-MB Reference Range:<6.7 Normal6.7-10.0 Borderline>10.0 AbnormalTROPONIN [id number] 02:36:00 Test Item Value Reference Range Interpretation Comments TROPONIN I (BEAKER) (test code = 0.01 ng/mL 0.00-0.03 397) Effective 08/05/2014: Reference Range ChangeNew: 0.00-0.03 Previous 0.00- 0.15Troponin I (TnI) levels must be interpreted in the context of the presenting symptoms and the clinical findings. Elevated TnI levels indicate myocardial damage, but are not specific for ischemic heart disease. Elevated TnI levels are seen in patients with other cardiac conditions (including myocarditis and congestive heartfailure), and slight TnI elevations occur in patients with other conditions, including sepsis, renalfailure, acidosis, acute neurological disease, and persistent tachyarrhythmia.[id number] 02:31:00 Test Item Value Reference Range Interpretation Comments POTASSIUM (BEAKER) (test code = 4.8 meq/L 3.5-5.1 379) If last glucose was less than 500, may do bedside glucose instead of serum glucose.CBC W/PLT COUNT & AUTO [id number] 02:31:00 Test Item Value Reference Range Interpretation Comments WHITE BLOOD CELL COUNT (BEAKER) 10.7 K/ L 4.0-10.0 H (test code = 775) RED BLOOD CELL COUNT (BEAKER) 2.90 M/ L 4.20-5.80 L (test code = 761) HEMOGLOBIN (BEAKER) (test code = 9.2 GM/DL 13.0-16.8 L 410) HEMATOCRIT (BEAKER) (test code = 26.2 % 40.0-50.0 L 411) MEAN CORPUSCULAR VOLUME (BEAKER) 90.3 fL 82.0-98.0 (test code = 753) MEAN CORPUSCULAR HEMOGLOBIN 31.7 pg 27.0-33.0 (BEAKER) (test code = 751) MEAN CORPUSCULAR HEMOGLOBIN CONC 35.1 GM/DL 32.0-36.0 (BEAKER) (test code = 752) RED CELL DISTRIBUTION WIDTH 14.5 % 10.3-14.2 H (BEAKER) (test code = 412) PLATELET COUNT (BEAKER) (test 155 K/CU MM 150-430 code = 756) MEAN PLATELET VOLUME (BEAKER) 8.2 fL 6.5-10.5 (test code = 754) NUCLEATED RED BLOOD CELLS 0 /100 WBC 0-0 (BEAKER) (test code = 413) NEUTROPHILS RELATIVE PERCENT 91 % (BEAKER) (test code = 429) LYMPHOCYTES RELATIVE PERCENT 7 % (BEAKER) (test code = 430) MONOCYTES RELATIVE PERCENT 2 % (BEAKER) (test code = 431) EOSINOPHILS RELATIVE PERCENT 0 % (BEAKER) (test code = 432) BASOPHILS RELATIVE PERCENT 0 % (BEAKER) (test code = 437) NEUTROPHILS ABSOLUTE COUNT 9.80 K/ L 1.80-8.00 H (BEAKER) (test code = 670) LYMPHOCYTES ABSOLUTE COUNT 0.69 K/ L 1.48-4.50 L (BEAKER) (test code = 414) MONOCYTES ABSOLUTE COUNT (BEAKER) 0.17 K/ L 0.00-1.30 (test code = 415) EOSINOPHILS ABSOLUTE COUNT 0.03 K/ L 0.00-0.50 (BEAKER) (test code = 416) BASOPHILS ABSOLUTE COUNT (BEAKER) 0.03 K/ L 0.00-0.20 (test code = 417) 0.000.640.000.580.000.000.000.00BLOOD GAS, [id number] 02:26:00 Test Item Value Reference Range Interpretation Comments PH ARTERIAL (BEAKER) (test code 7.38 7.35-7.45 = 383) PCO2 ARTERIAL (BEAKER) (test 23 mmHg 35-45 L code = 384) PO2 ARTERIAL (BEAKER) (test code 109 mmHg 80-90 H = 385) O2 SATURATION ARTERIAL (BEAKER) 98.0 % 96.0-97.0 H (test code = 386) HCO3 ARTERIAL (BEAKER) (test 14 mmol/L 21-29 L code = 388) BASE EXCESS ARTERIAL (BEAKER) -10.2 mmol/L -2.0-3.0 L (test code = 387) PATIENT TEMPERATURE (BEAKER) 37.0 C (test code = 1818) FIO2 (BEAKER) (test code = 1819) 30.0 % LACTIC ACID, ARTERIAL, WHOLE [id number] 02:25:00 Test Item Value Reference Range Interpretation Comments LACTATE BLOOD ARTERIAL (2) 4.9 mmol/L 0.5-2.2 H (BEAKER) (test code = 2874) Effective 01/20/2016: Units/Reference Range ChangeNew: 0.5-2.2 mmol/L Previous: 5-20 mg/dLPOCT-GLUCOSE [id number] 02:18:00 Test Item Value Reference Range Interpretation Comments POC-GLUCOSE METER 493 mg/dL 70-110 HH TESTED AT [facility] [address] ([facility]) (test code = [place] 1538) [address] [id number] 02:17:00 Test Item Value Reference Range Interpretation Comments PARTIAL THROMBOPLASTIN TIME 25.3 seconds 22.5-36.0 (BEAKER) (test code = 760) PROTHROMBIN TIME/[id number] 02:16:00 Test Item Value Reference Range Interpretation Comments PROTIME (BEAKER) (test code = 13.2 seconds 11.7-14.7 759) INR (BEAKER) (test code = 370) 1.0 <=5.9 RECOMMENDED COUMADIN/WARFARIN INR THERAPY RANGESSTANDARD DOSE: 2.0 - 3.0 Includes: PROPHYLAXIS forvenous thrombosis, systemic embolization; TREATMENT for venous thrombosis and/or pulmonary embolus.HIGH RISK: Target INR is 2.5-3.5 for patients with mechanical heart valves.
[2020-02-20 17:27] LABS: Absolute Lymphocytes (CBC) 0.6 K/uL (0.7-4.9); Basophils % 1.2 % (0-1.3); Hematocrit 34.8 % (39.6-49.0); Lymphocytes % 6.7 % (15.3-44.8); MPV 8.8 fL (7.6-11.3)
[2020-02-20 17:40] LABS: Potassium 4.2 mmol/L (3.5-5.1)
--- NOTE | 2020-02-20 19:30 | RAD REPORT ---
EXAM DESCRIPTION: US - Extremity Venous Uni Ltd - 02/20/2020 7:08 pm CLINICAL HISTORY: Left arm pain and swelling COMPARISON: None. TECHNIQUE: Real-time sonographic evaluation of the left upper extremity deep venous systems was perf ormed. FINDINGS: Normal compressibility, flow augmentation, phasic flow and spontaneous flow are identified in the left upper extremity deep venous system. No intraluminal filling defects seen. Internal jugul ar and subclavian veins are patent as well. Upper extremity AV fistula is identified. Lumen is patent. No mass or abnormal fluid collection in the soft tissues. IMPRESSION: No DVT in the left upper extremity. AV fistula is patent.
--- NOTE | 2020-02-20 19:45 | EDPHYS ---
Physician Documentation [facility] Name: Orlando Warren Age: 44 yrs Sex: Male : 1975 Arrival Date: 02/20/2020 Time: 16:05 Bed 13 Private MD: ED Physician Gurinder Branch HPI: 02/19 16:17 This 44 yrs old Male presents to ER via EMS with complaints of left arm pain. kdr 16:17 The patient or guardian complains of decreased range of motion, injury, pain, that is kdr acute, swelling, tenderness. The complaints affect the anterior aspect of left shoulder, left axilla, left bicep, posterior aspect of left shoulder and left tricep. Context: The problem was sustained at home, resulted from The patient had a fistula placed on Monday. Onset: The symptoms/episode began/occurred acutely, gradually, Since Monday. Treatment prior to arrival includes: no previous treatment. Modifying factors: The symptoms are alleviated by nothing. the symptoms are aggravated by movement, bending arm. Associated signs and symptoms: Pertinent positives: swelling, Swelling to left arm/shoulder/neck and face. Severity of symptoms: At their worst the symptoms were moderate, in the emergency department the symptoms are unchanged. The patient has not experienced similar symptoms in the past. The patient has been recently seen by a physician: For fistsula placement. Historical: - Allergies: 16:16 PENICILLINS; jl7 - Home Meds: 16:16 aspirin 81 mg Oral TbEC 1 tab once daily [Active]; Veltassa oral oral [Active]; jl7 carvedilol 12.5 mg Oral tab 1 tab 2 times per day [Active]; Novolog Sub-Q [Active]; glipizide 5 mg oral tab [Active]; Renvela 800 mg oral tab [Active]; lisinopril 20 mg Oral tab 1 tab once daily [Active]; metoclopramide HCl 5 mg Oral tab [Active]; - PMHx: 16:16 ESRD; Diabetes - IDDM; GERD; Hypertension; jl7 - Immunization history:: Adult Immunizations up to date. - Social history:: Smoking status: Patient denies any tobacco usage or history of. ROS: 16:17 Constitutional: Negative for fever, chills, and weight loss, Eyes: Negative for injury, kdr pain, redness, and discharge, ENT: Negative for injury, pain, and discharge, Neck: Negative for injury, pain, and swelling, Cardiovascular: Negative for chest pain, palpitations, and edema, Respiratory: Negative for shortness of breath, cough, wheezing, and pleuritic chest pain, Abdomen/GI: Negative for abdominal pain, nausea, vomiting, diarrhea, and constipation, Back: Negative for injury and pain, : Negative for injury, bleeding, discharge, and swelling, Skin: Negative for injury, rash, and discoloration, Neuro: Negative for headache, weakness, numbness, tingling, and seizure activity. Psych: Negative for depression, anxiety, suicide ideation, homicidal ideation, and hallucinations, Allergy/Immunology: Negative for hives, rash, and allergies, Endocrine: Negative for neck swelling, polydipsia, polyuria, polyphagia, and marked weight changes, Hematologic/Lymphatic: Negative for swollen nodes, abnormal bleeding, and unusual bruising. 16:17 MS/extremity: Positive for injury or acute deformity, decreased range of motion, pain, swelling, tenderness, warmth. Exam: 16:17 Constitutional: This is a well developed, well nourished patient who is awake, alert, kdr and in no acute distress. Head/Face: Normocephalic, atraumatic. Eyes: Pupils equal round and reactive to light, extra-ocular motions intact. Lids and lashes normal. Conjunctiva and sclera are non-icteric and not injected. Cornea within normal limits. Periorbital areas with no swelling, redness, or edema. Neck: Trachea midline, no thyromegaly or masses palpated, and no cervical lymphadenopathy. Supple, full range of motion without nuchal rigidity, or vertebral point tenderness. No Meningismus. Chest/axilla: Normal chest wall appearance and motion. Nontender with no deformity. No lesions are appreciated. Cardiovascular: Regular rate and rhythm with a normal S1 and S2. No gallops, murmurs, or rubs. Normal PMI, no JVD. No pulse deficits. Respiratory: Lungs have equal breath sounds bilaterally, clear to auscultation and percussion. No rales, rhonchi or wheezes noted. No increased work of breathing, no retractions or nasal flaring. Abdomen/GI: Soft, non-tender, with normal bowel sounds. No distension or tympany. No guarding or rebound. No evidence of tenderness throughout. Back: No spinal tenderness. No costovertebral tenderness. Full range of motion. Skin: Warm, dry with normal turgor. Normal color with no rashes, no lesions, and no evidence of cellulitis. Neuro: Awake and alert, GCS 15, oriented to person, place, time, and situation. Cranial nerves II-XII grossly intact. Motor strength 5/5 in all extremities. Sensory grossly intact. Cerebellar exam normal. Normal gait. Psych: Awake, alert, with orientation to person, place and time. Behavior, mood, and affect are within normal limits. 16:17 Musculoskeletal/extremity: ROM: Vital Signs: 16:05 BP 124 / 73; Pulse 72; Resp 19; Temp 98.3; Pulse Ox 100% ; Pain 7/10; jl7 18:44 BP 164 / 83; Pulse 73; Resp 16 S; Pulse Ox 100% on R/A; jl7 20:05 BP 155 / 82; Pulse 71; Resp 16; Temp 98.2; Pulse Ox 100% on R/A; ao MDM: 16:17 Data reviewed: vital signs, nurses notes, lab test result(s), radiologic studies. kdr Counseling: I had a detailed discussion with the patient and/or guardian regarding: the historical points, exam findings, and any diagnostic results supporting the discharge/admit diagnosis, lab results, radiology results, the need for outpatient follow up. 19:37 ED course: Talked to Dr. Shah, may go home if no DVT. To follow up with Dr. Sedrick valadez ( Vascular surgeon next week. Patient understood instruction. 19:44 Patient medically screened. pkl 02/19 16:16 Order name: CBC with Diff; Complete Time: 19:07 kdr 02/19 16:16 Order name: Chem 7; Complete Time: 19:07 kdr 02/19 16:16 Order name: US Extremity Venous Unilateral Ltd; Complete Time: :44 kdr 02/19 16:16 Order name: PT-INR; Complete Time: 19:07 kdr 02/19 16:16 Order name: DD; Complete Time: 19:07 kdr Administered Medications: No medications were administered Disposition: 02/20/20 19:44 Discharged to Home. Impression: Pain and swelling left arm. S/P dialysis shunt placement. - Condition is Stable. - Medication Reconciliation Form, Thank You Letter, Antibiotic Education, Prescription Opioid Use form. - Follow up: Private Physician; When: 2 - 3 days; Reason: Re-evaluation by your physician. - Problem is new. - Symptoms are unchanged. Signatures: Dispatcher [employer] EDGurinder Gonzales MD MD pkl Artie Soler MD MD kdr Ortiz, Alex, RN RN ao Vivi Ma RN RN jl7 Corrections: (The following items were deleted from the chart) 20:12 19:44 02/20/2020 19:44 Discharged to Home. Impression: Pain and swelling left arm. S/P ao dialysis shunt placement. Condition is Stable. Forms are Medication Reconciliation Form, Thank You Letter, Antibiotic Education, Prescription Opioid Use. Follow up: Private Physician; When: 2 - 3 days; Reason: Re-evaluation by your physician. Problem is new. Symptoms are unchanged. pkl
--- NOTE | 2020-02-20 19:45 | ER ---
Nurse's Notes [facility] Name: Orlando Warren Age: 44 yrs Sex: Male : 1975 Arrival Date: 02/20/2020 Time: 16:05 Bed 13 Private MD: Diagnosis: Pain and swelling left arm. S/P dialysis shunt placement Presentation: 02/19 16:05 Chief complaint: EMS states: Pt had a new dialysis access placed on Monday in the left jl7 upper arm, pt's arm is swollen and painful. Swelling extends down pt's left arm and up to pt's left side of neck to right side of neck. Coronavirus screen: Proceed with normal triage. Ebola Screen: No symptoms or risks identified at this time. Initial Sepsis Screen: Does the patient meet any 2 criteria? RR > 20 per min. Does the patient have a suspected source of infection? No. Patient's initial sepsis screen is negative. Risk Assessment: Do you want to hurt yourself or someone else? Patient reports no desire to harm self or others. Onset of symptoms was February 17, 2020. Care prior to arrival: None. Transition of care: patient was not received from another setting of care. 16:05 Method Of Arrival: EMS: [facility] jl7 16:05 Acuity: DEMARIO 2 jl7 Triage Assessment: 16:16 General: Appears in no apparent distress. uncomfortable, Behavior is calm, cooperative, jl7 appropriate for age. Pain: Complains of pain in left arm Pain currently is 7 out of 10 on a pain scale. Neuro: Level of Consciousness is awake, alert, obeys commands, Oriented to person, place, time, situation. Cardiovascular: Patient's skin is warm and dry. Pulses are 1+ in left radial artery are 2+ in right radial artery Edema is 1+ to left wrist and left hand pitting to left wrist and left hand. Respiratory: Airway is patent Respiratory effort is even, unlabored, Respiratory pattern is regular, symmetrical. Derm: Skin is dry, Skin is normal, Skin temperature is warm. Historical: - Allergies: 16:16 PENICILLINS; jl7 - Home Meds: 16:16 aspirin 81 mg Oral TbEC 1 tab once daily [Active]; Veltassa oral oral [Active]; jl7 carvedilol 12.5 mg Oral tab 1 tab 2 times per day [Active]; Novolog Sub-Q [Active]; glipizide 5 mg oral tab [Active]; Renvela 800 mg oral tab [Active]; lisinopril 20 mg Oral tab 1 tab once daily [Active]; metoclopramide HCl 5 mg Oral tab [Active]; - PMHx: 16:16 ESRD; Diabetes - IDDM; GERD; Hypertension; jl7 - Immunization history:: Adult Immunizations up to date. - Social history:: Smoking status: Patient denies any tobacco usage or history of. Screenin:30 Abuse screen: Denies threats or abuse. Denies injuries from another. Nutritional jl7 screening: No deficits noted. Tuberculosis screening: No symptoms or risk factors identified. Fall Risk No fall in past 12 months (0 pts). No secondary diagnosis (0 pts). IV access (20 points). Ambulatory Aid- Crutches/Cane/Walker (15 pts). Gait- Impaired (20 pts.). Mental Status- Oriented to own ability (0 pts). Total Hendricks Fall Scale indicates High Risk Score (45 or more points). Fall prevention measures have been instituted. Side Rails Up X 2 Placed Close to Nursing Station Frequent Obs/Assessments Occuring Family Present and informed to notify staff if the need to leave the bedside As available patient and family educated on Fall Prevention Program and Strategies. Assessment: 16:30 General: See triage assessment. jl7 17:30 Reassessment: Patient appears in no apparent distress at this time. No changes from jl7 previously documented assessment. Patient and/or family updated on plan of care and expected duration. Pain level reassessed. Patient is alert, oriented x 3, equal unlabored respirations, skin warm/dry/pink. 18:44 Reassessment: US at bedside. jl7 20:06 Reassessment: Patient appears in no apparent distress at this time. DC instructions ao given to patient. Patient agree with PCP and to follow up with PCP. Vital Signs: 16:05 BP 124 / 73; Pulse 72; Resp 19; Temp 98.3; Pulse Ox 100% ; Pain 7/10; jl7 18:44 BP 164 / 83; Pulse 73; Resp 16 S; Pulse Ox 100% on R/A; jl7 20:05 BP 155 / 82; Pulse 71; Resp 16; Temp 98.2; Pulse Ox 100% on R/A; ao ED Course: 16:05 Patient arrived in ED. jl7 16:11 Triage completed. jl7 16:12 Artie Soler MD is Attending Physician. kdr 16:16 Arm band placed on right wrist. jl7 16:20 Patient has correct armband on for positive identification. Placed in gown. Bed in low jl7 position. Call light in reach. Side rails up X2. 16:30 Initial lab(s) drawn, by me, sent to lab. Inserted saline lock: 22 gauge in right hand, jl7 using aseptic technique. Blood collected. 17:42 Vivi Ma, RN is Primary Nurse. jl7 17:42 Notified ED physician of a critical lab result(s). D-Dimer 1542. jl7 19:05 Attending Physician role handed off by Artie Soler MD pkl 19:05 Gurinder Branch MD is Attending Physician. pkl 19:08 US Extremity Venous Unilateral Ltd In Process Unspecified. EDMS 20:03 No provider procedures requiring assistance completed. IV discontinued, intact, ao bleeding controlled, No redness/swelling at site. Pressure dressing applied. Administered Medications: No medications were administered Outcome: 19:44 Discharge ordered by . pkl 20:04 Discharged to home ambulatory. ao 20:04 Condition: stable 20:04 Discharge instructions given to patient, Instructed on discharge instructions, follow up and referral plans. Demonstrated understanding of instructions, follow-up care, medications. 20:12 Patient left the ED. ao Signatures: Dispatcher [employer] EDIL Gurinder Branch MD MD pkl Rittger, Kevin, MD MD kdr Ortiz, Alex RN RN ao Vivi Ma, KAELA RN jl7
[2020-02-20 20:31] VITALS: O2SAT 100
[2020-02-20 20:34] VITALS: BP 155/82; TEMP 98.2
== END 2020-02-20 20:12 | disposition home or self-care (01) ==
LOC: ER 15:45
DX: M79.602 Pain in left arm (principal); R22.32 Localized swelling, mass and lump, left upper limb; Z88.0 Allergy status to penicillin; E11.22 Type 2 diabetes mellitus with diabetic chronic kidney disease; I12.0 Hypertensive chronic kidney disease with stage 5 chronic kidney disease or end stage renal disease; N18.6 End stage renal disease; Z99.2 Dependence on renal dialysis; Z79.4 Long term (current) use of insulin
CPT/HCPCS: 36415; 80048; 85025; 85379; 85610; 93971; 99284

== ENCOUNTER 2020-03-09 07:38 | Emergency (ER) | payer BC ==
--- OUTSIDE RECORDS SUMMARY | 2020-03-09 07:47 | XMS REPORT | Clinical Summary ---
:1975 Author Organization [facility] Address [address] [place] [address] Care Team Providers Name Role Phone Sharpless [...] Not on file Results Not on fileafter 03/09/2019 Insurance Payer Benefit Plan / Subscriber ID Type Phone Address Group BLUE [employer]OSS/BLUE [employer]BS ADV HMO xxxxxxxxxxxx [phone] [address] [place] [address] Advance Directives For more information, please contact:[place] [id number] [place], [place] [phone] Code Status Date Activated Date Inactivated Comments Full Code 12/02/2016 4:55 PM 12/08/2016 9:11 PM This code status was determined by: Patient
--- OUTSIDE RECORDS SUMMARY | 2020-03-09 07:53 | XMS REPORT | Continuity of Care Document ---
:1975 Author Organization [facility] t Address [address] [place] [address] Dr. Lucas. [address] [place] [address] Care Team Providers Name Role Phone Sharpless Primary Care Physician Unavailable Doctor Unassigned, [place] Attending Clinician Unavailable Guero Torres MD Attending Clinician Scot DALTON Attending Clinician Singer RICAHRD Attending Clinician Rolando DALTON Attending Clinician Denis DALTON Attending Clinician Keith DALTON Attending Clinician Paulo Martin DO Attending Clinician Tasneem MORENO Attending Clinician Amandeep Jara MD Attending Clinician [phone] LUCRECIA RENEE Attending Clinician Unavailable Scot DALTON Admitting Clinician Rolando DALTON Admitting Clinician Keith DALTON Admitting Clinician Tasneem MORENO Admitting Clinician Amandeep Jara MD Admitting Clinician [phone] WYNN Admitting Clinician Unavailable Problems Condition Condition Condition Status Onset Resolution Last Treating Co mments Source Name Details Category Date Date Treatment Clinician Date Diabetic Diabetic Disease [facility] Radha kes - is with is with 00:00: Medical coma coma 00 Center associated associated with other with other specified specified diabetes diabetes mellitus mellitus Acute Acute Disease Active [facility] metabolic metabolic 3-18 [facility] - encephalop encephalop 00:00: Me dical athy athy 00 Center Essential Essential Disease Active [facility] hypertensi hypertensi 3-18 Radha kes - on on 00:00: Medical 00 [place] DKA DKA Disease Active [facility] (diabetic (diabetic 3-17 [facility] - ketoacidos ketoacidos 00:00: Me dical es) es) 00 Center Acute Acute Disease Active [facility] hypoxemic hypoxemic 3-17 [facility] - respirator respirator 00:00: Me dical y failure y failure 00 Cent er ESRD (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 [facility] - renal renal 00:00: Medical disease) disease) 00 Center Seizures Seizures Disease [facility] - 00:[facility]: Medical 00 Center Allergies, Adverse Reactions, Alerts Allergy Allergy Status Severity Reaction(s) Onset Inactive Treating Comm ents Source Name Type Date Date Clinician Penicill Drug Active [facility] ins Allergy 3-17 [facility] - 00:00: Medical 00 [place] Social History Social Habit Start Date Stop Date Quantity Comments Source Sex Assigned At [facility] Smoking Status Start Date Stop Date Source [facility] Medications Ordered Filled Start Stop Current Ordering Indication Dosage Frequency Signature Comments Components Source Medication Medication Date Date Medication? Clinician (SIG) Name Name doxazosin Yes 2mg QD Take [address] [facility] (CARDURA) 2 3-17 by mouth [facility] - MG tablet 02:14: nightly. [facility] maddie 40 [place] famotidine Yes 20mg Q.5D Take [address] (PEPCID) 20 3-17 by mouth 2 Radha kes - MG tablet 02:14: (two) Medical 40 times Center daily. meclizine Yes 25mg QD Take [address] (ANTIVERT) 3-17 by mouth [facility] - 25 MG 02:14: daily. Medical tablet 40 Center nitroglycer Yes .4mg Place 0.[address] in 3-17 mg under [facility] - (NITROSTAT) 02:14: the tongue Medical 0.4 MG SL 40 every 5 Center tablet (five) minutes as needed for Chest pain Put 1 pill under tongue every 5min as needed for chest pain.No more than 3 doses in 15min.Call 911 if pain is unrelieved 5min after 1st dose . ondansetron Yes 4mg Take [address] (ZOFRAN) 4 3-17 by mouth 3 John es - MG tablet 02:14: (three) Medic al 40 times Center daily as needed for Nausea. b complex Yes 1{tbl} QD Take [address] [facility] vitamins 3-17 tablet by [facility] - tablet 02:14: mouth Medical 40 daily. Center calcium Yes 1{tbl} Q.[id number] Take [address] [address] carbonate 3-17 [id number] tablet by [facility] - (TUMS) 500 02:14: 3D mouth 3 Medi maddie mg chewable 39 (three) Cente r tablet times daily. amLODIPine Yes 10mg QD Take [address] (NORVASC) 3-17 by mouth [facility] - 10 MG 02:11: daily. Medical tablet 13 [place] aspirin 81 Yes 81mg QD Take [address] MG chewable 3-17 by mouth [facility] - tablet 02:11: daily. [address] Immunizations Ordered Immunization Filled Immunization Date Status Commen ts Source Name Name Influenza Three-TIV 2016-12-03 [facility] 5[facility]R 00:00:00 [facility] Procedures This patient has no known procedures. Encounters Start End Encounter Admission Attending Care Care Encounter Source Date/Time Date/Time Type Type Clinicians Facility Department ID 2019-10-02 2019-10-02 Orders Doctor ALVAREZ [id number] 00:00:00 00:00:00 Only Unassigned, TISHA [id number] [place] [facility] 4.2.7.2.686 [id number] 2019-06-05 2019-06-06 Emergency Nancy Torres [facility] 1.2.840 .114 [id number] 07:59:43 14:59:00 ScotMak [id number] [place] 4.2.7.2.686 [place] [address] [id number] 082019-06-01 2019-06-01 Emergency Luca Jackson [facility] 1.2.840. 114 [id number] 06:56:22 17:52:00 Jesus Marshall [id number] [place] 4.2.7.2.686 [place] [address] [id number] 082019-05-28 2019-05-28 Emergency Andrey Barrios [facility] 1.2.840. 114 [id number] 07:49:46 20:40:00 Jesus Marshall [id number] [place] 4.2.7.2.686 [place] [address] [id number] 2019-05-24 2019-05-24 Emergency Andrey Barrios [facility] 1.2.840. 114 [id number] 07:36:09 16:15:00 James Parker [id number] [place] 4.2.7.2.686 [place] [address] [id number] 2019-05-20 2019-05-20 Emergency Flower Martin [facility] 1.2.8 40.114 [id number] 07:34:17 19:50:00 James Parker [id number] [place] 4.2.7.2.686 [place] [address] [id number] [facility] 2019-05-15 2019-05-15 Emergency Luca Jackson [facility] 1.2.840. 114 [id number] 07:17:11 18:48:00 Jesus Marshall [id number] [place] [address] [place] [phone] [facility] 2019-05-09 2019-05-11 Emergency Nancy Torres [facility] 1.2.840 .114 [id number] 07:23:22 15:03:00 Jesus Marshall [id number] [place] [address] [place] [id number] 081 2019-05-07 2019-05-07 Emergency Denis [facility] 1.2.802.122 [id number] 06:36:08 08:19:00 Andrey Castrejon [id number] [place] 4.2.7.2.686 [place] [address] [id number] 2019-05-03 2019-05-03 Emergency Andrey Barrios [facility] 1.2.840. 114 [id number] 07:04:51 19:40:00 MovvaCaleb 350.1.13.[address] [place] [address] [place] [id number] 080 2019-04-29 2019-04-29 Emergency Nancy Torres [facility] 1.2.840 .114 [id number] 06:03:54 16:18:00 Luly Jara Henderson [id number] [place] [address] [place] [phone] [facility] 2019-04-24 2019-04-24 Emergency Jacki Martinra Bates [facility] 1.2.8 40.114 [id number] 07:32:53 17:15:00 Mak Ellison [id number] [place] [address] [place] [phone] 080 2019-04-20 2019-04-20 Emergency Andrey Barrios [facility] 1.2.840. 114 [id number] 07:35:56 21:13:00 Mak Ellison [id number] [place] [address] [place] [id number] 081 2019-04-15 2019-04-15 Emergency Andrey Barrios [facility] 1.2.840. 114 [id number] 06:12:02 17:50:00 Caleb Boateng [id number] [place] 4.2.7.2.686 [place] [address] [id number] 081 Results Test Description Test Time Test Comments Results Result Comments Source BLOOD CULTURE 2016-12-09 11:00:00 Test Item Value Reference Range Interpretation Comme nts CULTURE (BEAKER) (test code = 1095) No growth in 5 days BLOOD [id number] 11:00:00 Test Item Value Reference Range Interpretation Comments CULTURE ([facility]) (test No growth in 5 days code = 1095) ISLET CELL AB [id number] 09:29:00 Test Item Value Reference Range Interpretation Comments ISLET CELL AB See individual AUTOVERIFICATION (test panel test results. code = 2556) POCT-GLUCOSE [id number] 17:52:00 Test Item Value Reference Range Interpretation Comments POC-GLUCOSE METER 360 mg/dL 70-110 H TESTED AT [facility] ([facility]) (test code = [facility] 1538) [address] CLOSTRIDIUM DIFFICILE TOXIN [id number] 14:10:00 Test Item Value Reference Range Interpretation Comments CLOSTRIDIUM DIFFICILE TOXIN, PCR Not Detected Not Detected ([facility]) (test code = 1525) This qualitative real-time [...] of a positive result is not recommended.POCT-GLUCOSE [id number] 13:02:00 Test Item Value Reference Range Interpretation Comments POC-GLUCOSE METER 265 mg/dL 70-110 H TESTED AT [facility] ([facility]) (test code = [facility] 1538) [address] POCT-GLUCOSE [id number] 07:13:00 Test Item Value Reference Range Interpretation Comments POC-GLUCOSE METER 70 mg/dL 70-110 TESTED AT [facility] ([facility]) (test code = [facility] [address] 1538) VANCOMYCIN LEVEL, [id number] 06:54:00 Test Item Value Reference Range Interpretation Comments VANCOMYCIN RANDOM (BEAKER) (test 15.2 ug/mL code = 523) Reference Range: No NormalsBASIC METABOLIC [id number] 06:41:00 Test Item Value Reference Range Interpretation [...] NOT APPLICABLE FOR DIALYSIS PATIEN TS. POCT-GLUCOSE [id number] 06:40:00 Test Item Value Reference Range Interpretation Comments POC-GLUCOSE METER 44 mg/dL 70-110 L Notified R aMnny MD/TESTED AT ([facility]) (test code = [facility] [place] 1538) [facility] 7703 0 POCT-GLUCOSE [id number] 06:36:00 Test Item Value Reference Range Interpretation Comments POC-GLUCOSE METER 54 mg/dL 70-110 L Notified R N MD/TESTED AT ([facility]) (test code = [facility] 7703 0 BASIC METABOLIC [id number] 06:35:00 Test Item Value Reference Range Interpretation [...] NOT APPLICABLE FOR DIALYSIS PATIEN TS. POCT-GLUCOSE [id number] 21:14:00 Test Item Value Reference Range Interpretation Comments POC-GLUCOSE METER 396 mg/dL 70-110 H Notified R N MD/TESTED (BEAKER) (test code = AT [facility] [address] [place] [address]60[address]) [facility] 7703 0 POCT-GLUCOSE [id number] 18:02:00 Test Item Value Reference Range Interpretation Comments POC-GLUCOSE METER 363 mg/dL 70-110 H Notified R N MD/TESTED ([facility]) (test code = [place] [address] [facility] 7703 0 BLOOD [id number] 18:00:00 Test Item Value Reference Range Interpretation Comments CULTURE (BEAKER) (test No growth in 5 days code = 1095) BLOOD [id number] 18:00:00 Test Item Value Reference Range Interpretation Comments CULTURE (BEAKER) (test No growth in 5 days code = 1095) POCT-GLUCOSE [id number] 13:08:00 Test Item Value Reference Range Interpretation Comments POC-GLUCOSE METER 188 mg/dL 70-110 H TESTED AT [facility] ([facility]) (test code = [place] 1538) [address] POCT-GLUCOSE [id number] 11:42:00 Test Item Value Reference Range Interpretation Comments POC-GLUCOSE METER 194 mg/dL 70-110 H TESTED AT [facility] ([facility]) (test code = [place] 1538) [address] VANCOMYCIN LEVEL, [id number] 09:58:00 Test Item Value Reference Range Interpretation Comments VANCOMYCIN RANDOM (BEAKER) (test 12.9 ug/mL code = 523) Reference Range: No NormalsTo be drawn BEFORE dialysis in the dialysis unit. Thank youPOCT-GLUCOSE [id number] 08:52:00 Test Item Value Reference Range Interpretation Comments POC-GLUCOSE METER 272 mg/dL 70-110 H TESTED AT [facility] (BEAKER) (test code = [place] 1538) [address] BASIC METABOLIC [id number] 05:09:00 Test Item Value Reference Range Interpretation [...] NOT APPLICABLE FOR DIALYSIS PATIEN TS. POCT-GLUCOSE [id number] 21:32:00 Test Item Value Reference Range Interpretation Comments POC-GLUCOSE METER 388 mg/dL 70-110 H TESTED AT [facility] (BEAKER) (test code = [place] 1538) [address] POCT-GLUCOSE [id number] 18:31:00 Test Item Value Reference Range Interpretation Comments POC-GLUCOSE METER 247 mg/dL 70-110 H TESTED AT [facility] (BEAKER) (test code = [place] 1538) [address] POCT-GLUCOSE [id number] 10:58:00 Test Item Value Reference Range Interpretation Comments POC-GLUCOSE METER 213 mg/dL 70-110 H TESTED AT [facility] (BEAKER) (test code = [place] 1538) [address] CBC W/PLT COUNT & AUTO [id number] 07:02:00 Test Item Value Reference Range Interpretation [...] 0.00-0.20 (test code = 417) 0.00BASIC METABOLIC [id number] 06:25:00 Test Item Value Reference Range Interpretation [...] S NOT APPLICABLE FOR DIALYSIS PATIEN TS. [id number] 06:24:00 Test Item Value Reference Range Interpretation Comments PHOSPHORUS (BEAKER) (test code = 3.8 mg/dL 2.3-4.7 604) [id number] 06:24:00 Test Item Value Reference Range Interpretation Comments MAGNESIUM (BEAKER) (test code = 2.2 mg/dL 1.6-2.6 627) POCT-GLUCOSE [id number] 21:55:00 Test Item Value Reference Range Interpretation Comments POC-GLUCOSE METER 270 mg/dL 70-110 H TESTED AT [facility] (BEAKER) (test code = [place] 1538) [address] POCT-GLUCOSE [id number] 18:12:00 Test Item Value Reference Range Interpretation Comments POC-GLUCOSE METER 124 mg/dL 70-110 H TESTED AT [facility] (BEAKER) (test code = [place] 1538) [address] POCT-GLUCOSE [id number] 16:27:00 Test Item Value Reference Range Interpretation Comments POC-GLUCOSE METER 135 mg/dL 70-110 H TESTED AT [place] [address] ([facility]) (test code = [facility] 1538) [address] POCT-GLUCOSE [id number] 14:10:00 Test Item Value Reference Range Interpretation Comments POC-GLUCOSE METER 219 mg/dL 70-110 H TESTED AT [place] [address] ([facility]) (test code = [facility] 1538) [address] POCT-GLUCOSE [id number] 12:01:00 Test Item Value Reference Range Interpretation Comments POC-GLUCOSE METER 162 mg/dL 70-110 H TESTED AT [place] [address] ([facility]) (test code = [facility] 1538) [address] POCT-GLUCOSE [id number] 09:51:00 Test Item Value Reference Range Interpretation Comments POC-GLUCOSE METER 220 mg/dL 70-110 H TESTED AT [place] [address] ([facility]) (test code = [facility] 1538) [address] POCT-GLUCOSE [id number] 07:48:00 Test Item Value Reference Range Interpretation Comments POC-GLUCOSE METER 151 mg/dL 70-110 H TESTED AT [place] [address] ([facility]) (test code = [facility] 1538) [address] BASIC METABOLIC [id number] 07:36:00 Test Item Value Reference Range Interpretation [...] = 358) GLUCOSE RANDOM 93 mg/dL 70-105 (BEAKER) (test code = 652) CALCIUM (BEAKER) 7.9 mg/dL 8.4-10.2 L (test code = 697) EGFR (BEAKER) (test 7 mL/min/1.73 ESTIMAT ED GFR IS code = 1092) sq m NOT ACCURATE CREATININE CLEARANCE IN PREDICTING GLOMERULAR FILTRATION RATE . ESTIMATED GFR I S NOT APPLICABLE FOR DIALYSIS PATIEN TS. POCT-GLUCOSE [id number] 07:06:00 Test Item Value Reference Range Interpretation Comments POC-GLUCOSE METER 98 mg/dL 70-110 TESTED AT [place] [address] ([facility]) (test code = [facility] [address] 1538) POCT-GLUCOSE [id number] 06:27:00 Test Item Value Reference Range Interpretation Comments POC-GLUCOSE METER 63 mg/dL 70-110 L TESTED AT [place] [address] ([facility]) (test code = [facility] [address] 1538) VANCOMYCIN LEVEL, [id number] 04:31:00 Test Item Value Reference Range Interpretation Comments VANCOMYCIN RANDOM (BEAKER) (test 20.8 ug/mL code = 523) Reference Range: No [id number] 04:20:00 Test Item Value Reference Range Interpretation Comments PHOSPHORUS (BEAKER) (test code = 5.4 mg/dL 2.3-4.7 H 604) [id number] 04:20:00 Test Item Value Reference Range Interpretation Comments MAGNESIUM (BEAKER) (test code = 2.1 mg/dL 1.6-2.6 627) POCT-GLUCOSE [id number] 04:16:00 Test Item Value Reference Range Interpretation Comments POC-GLUCOSE METER 99 mg/dL 70-110 TESTED AT [place] [address] ([facility]) (test code = [facility] [address] 1538) CBC W/PLT COUNT & AUTO [id number] 04:07:00 Test Item Value Reference Range Interpretation Comments WHITE BLOOD CELL COUNT (AKER) 7.4 K/ L 4.0-10.0 (test code = 775) RED BLOOD CELL COUNT (BEAKER) 3.07 M/ L 4.20-5.80 L (test code = 761) HEMOGLOBIN (BEAKER) (test code = 10.0 GM/DL 13.0-16.8 L 410) HEMATOCRIT (AKER) (test code = 29.0 % 40.0-50.0 L [...] L 0.00-0.20 (test code = 417) 0.00POCT-GLUCOSE [id number] 02:10:00 Test Item Value Reference Range Interpretation Comments POC-GLUCOSE METER 132 mg/dL 70-110 H TESTED AT [facility] (BEAKER) (test code = [place] 0973) [address] SPUTUM CULTURE + GRAM [id number] 00:32:00 Test Item Value Reference Range Interpretation Comments CULTURE (BEAKER) 4+ Normal respiratory (test code = 1095) jenelle present GRAM STAIN RESULT 3+ White blood cells (BEAKER) (test code = seen 1123) GRAM STAIN RESULT 0-5 epithelial cells (BEAKER) (test code = 12009) GRAM STAIN RESULT 2+ gram negative rods (BEAKER) (test code = 08010) GRAM STAIN RESULT 3+ gram positive rods (BEAKER) (test code = 918462) GRAM STAIN RESULT 2+ gram positive cocci (BEAKER) (test code = in pairs and clusters 854211) POCT-GLUCOSE [id number] 00:15:00 Test Item Value Reference Range Interpretation Comments POC-GLUCOSE METER 193 mg/dL 70-110 H TESTED AT [place] [address] (BEAKER) (test code = [facility] 1538) [address] POCT-GLUCOSE [id number] 22:22:00 Test Item Value Reference Range Interpretation Comments POC-GLUCOSE METER 170 mg/dL 70-110 H TESTED AT [place] [address] (BEAKER) (test code = [facility] 1538) [address] POCT-GLUCOSE [id number] 20:17:00 Test Item Value Reference Range Interpretation Comments POC-GLUCOSE METER 179 mg/dL 70-110 H TESTED AT [place] [address] (BEAKER) (test code = [facility] 1538) [address] BASIC METABOLIC [id number] 19:00:00 Test Item Value Reference Range Interpretation [...] 358) GLUCOSE RANDOM 156 mg/dL 70-105 H (BEAKER) (test code = 652) CALCIUM (BEAKER) 8.2 mg/dL 8.4-10.2 L (test code = 697) EGFR (BEAKER) (test 8 mL/min/1.73 ESTIMAT ED GFR IS code = 1092) sq m NOT ACCURATE CREATININE CLEARANCE IN PREDICTING GLOMERULAR FILTRATION RATE . ESTIMATED GFR I S NOT APPLICABLE FOR DIALYSIS PATIEN TS. POCT-GLUCOSE [id number] 18:27:00 Test Item Value Reference Range Interpretation Comments POC-GLUCOSE METER 150 mg/dL 70-110 H TESTED AT [place] [address] ([facility]) (test code = [place] [facility] 1538) [address] POCT-GLUCOSE [id number] 15:58:00 Test Item Value Reference Range Interpretation Comments POC-GLUCOSE METER 219 mg/dL 70-110 H TESTED AT [place] [address] ([facility]) (test code = [place] 1538) [address] POCT-GLUCOSE [id number] 14:26:00 Test Item Value Reference Range Interpretation Comments POC-GLUCOSE METER 212 mg/dL 70-110 H TESTED AT [place] [address] ([facility]) (test code = [facility] 1538) [address] POCT-GLUCOSE [id number] 12:23:00 Test Item Value Reference Range Interpretation Comments POC-GLUCOSE METER 261 mg/dL 70-110 H TESTED AT [place] [address] ([facility]) (test code = [facility] 1538) [address]19 POCT-GLUCOSE [id number] 10:19:00 Test Item Value Reference Range Interpretation Comments POC-GLUCOSE METER 323 mg/dL 70-110 H TESTED AT [place] [address] ([facility]) (test code = [facility] 1538) [address] POCT-GLUCOSE [id number] 08:24:00 Test Item Value Reference Range Interpretation Comments POC-GLUCOSE METER 235 mg/dL 70-110 H TESTED AT [place] [address] ([facility]) (test code = [facility] 1538) [address] POCT-GLUCOSE [id number] 07:10:00 Test Item Value Reference Range Interpretation Comments POC-GLUCOSE METER 244 mg/dL 70-110 H TESTED AT [place] [address] ([facility]) (test code = [facility] 1538) 27862 POCT-GLUCOSE [id number] 06:15:00 Test Item Value Reference Range Interpretation Comments POC-GLUCOSE METER 249 mg/dL 70-110 H TESTED AT [place] [address] ([facility]) (test code = [facility] 1538) 6[address] CBC W/PLT COUNT & AUTO [id number] 06:05:00 Test Item Value Reference Range Interpretation [...] 0.00-0.20 (test code = 417) 0.00BASIC METABOLIC [id number] 05:11:00 Test Item Value Reference Range Interpretation [...] S NOT APPLICABLE FOR DIALYSIS PATIEN TS. [id number] 05:05:00 Test Item Value Reference Range Interpretation Comments MAGNESIUM (BEAKER) 2.3 mg/dL 1.6-2.6 Specimen slightly (test code = 627) hemolyzed [id number] 05:05:00 Test Item Value Reference Range Interpretation Comments PHOSPHORUS (BEAKER) 5.9 mg/dL 2.3-4.7 H Specimen slightly (test code = 604) hemolyzed POCT-GLUCOSE [id number] 04:02:00 Test Item Value Reference Range Interpretation Comments POC-GLUCOSE METER 187 mg/dL 70-110 H TESTED AT [facility] (BEAKER) (test code = [place] 1538) [address] POCT-GLUCOSE [id number] 02:22:00 Test Item Value Reference Range Interpretation Comments POC-GLUCOSE METER 163 mg/dL 70-110 H TESTED AT [facility] (BEAKER) (test code = [place] 1538) [address] POCT-GLUCOSE [id number] 00:54:00 Test Item Value Reference Range Interpretation Comments POC-GLUCOSE METER 239 mg/dL 70-110 H TESTED AT [place] [address] ([facility]) (test code = [facility] 1538) [address] POCT-GLUCOSE [id number] 00:11:00 Test Item Value Reference Range Interpretation Comments POC-GLUCOSE METER 29 mg/dL 70-110 LL TESTED AT [place] [address] ([facility]) (test code = [facility] [address] 1538) POCT-GLUCOSE [id number] 21:35:00 Test Item Value Reference Range Interpretation Comments POC-GLUCOSE METER 100 mg/dL 70-110 TESTED AT [place] [address] ([facility]) (test code = [facility] 1538) [address] POCT-GLUCOSE [id number] 20:24:00 Test Item Value Reference Range Interpretation Comments POC-GLUCOSE METER 57 mg/dL 70-110 L TESTED AT [place] [address] ([facility]) (test code = [facility] [address] 1538) BASIC METABOLIC [id number] 18:11:00 Test Item Value Reference Range Interpretation [...] (test code = 697) EGFR (BEAKER) (test 10 mL/min/1.73 ESTIMA CASANDRA GFR IS code = 1092) sq m NOT ACCURATE CREATININE CLEARANCE IN PREDICTING GLOMERULAR FILTRATION RATE . ESTIMATED GFR I S NOT APPLICABLE FOR DIALYSIS PATIEN TS. POCT-GLUCOSE [id number] 17:33:00 Test Item Value Reference Range Interpretation Comments POC-GLUCOSE METER 87 mg/dL 70-110 TESTED AT [place] [address] (BEAKER) (test code = [place] [facility] [address] 1538) POCT-GLUCOSE [id number] 17:33:00 Test Item Value Reference Range Interpretation Comments POC-GLUCOSE METER 54 mg/dL 70-110 L Notified Pau Bryant MD/TESTED AT ([facility]) (test code = [place] [address] [facility] 1538) [facility] [id number] POCT-GLUCOSE [id number] 14:05:00 Test Item Value Reference Range Interpretation Comments POC-GLUCOSE METER 159 mg/dL 70-110 H TESTED AT [place] [address] ([facility]) (test code = [facility] 1538) [id number] POCT-GLUCOSE [id number] 12:26:00 Test Item Value Reference Range Interpretation Comments POC-GLUCOSE METER 247 mg/dL 70-110 H TESTED AT [place] [address] ([facility]) (test code = [facility] 1538) [id number] BASIC METABOLIC [id number] 11:20:00 Test Item Value Reference Range Interpretation [...] S NOT APPLICABLE FOR DIALYSIS PATIEN TS. [id number] 11:14:00 Test Item Value Reference Range Interpretation Comments MAGNESIUM (BEAKER) (test code = 2.2 mg/dL 1.6-2.6 627) CBC W/PLT COUNT & AUTO [id number] 11:14:00 Test Item Value Reference Range Interpretation [...] L 0.00-0.20 (test code = 417) 0.00POCT-GLUCOSE [id number] 10:17:00 Test Item Value Reference Range Interpretation Comments POC-GLUCOSE METER 172 mg/dL 70-110 H TESTED AT [place] [address] ([facility]) (test code = [place] 1538) [address] POCT-GLUCOSE [id number] 10:17:00 Test Item Value Reference Range Interpretation Comments POC-GLUCOSE METER 167 mg/dL 70-110 H TESTED AT [place] [address] ([facility]) (test code = [facility] 1538) [address] POCT-GLUCOSE [id number] 10:17:00 Test Item Value Reference Range Interpretation Comments POC-GLUCOSE METER 176 mg/dL 70-110 H TESTED AT [place] [address] ([facility]) (test code = [facility] 1538) [address] [id number] 08:17:00 Test Item Value Reference Range Interpretation Comments FERRITIN (BEAKER) (test code = 361) 347 ng/mL 5-275 [...] 6 % 20-55 L (test code = 2590) VANCOMYCIN LEVEL, [id number] 06:52:00 Test Item Value Reference Range Interpretation Comments VANCOMYCIN RANDOM (BEAKER) (test 12.8 ug/mL code = 523) Reference Range: No NormalsHold further dosing for vancomycin level > 20, alert MD and RphPOCT-GLUCOSE [id number] 06:16:00 Test Item Value Reference Range Interpretation Comments POC-GLUCOSE METER 179 mg/dL 70-110 H TESTED AT [facility] 6720 (BEAKER) (test code = [place] 1538) [address] POCT-GLUCOSE [id number] 05:08:00 Test Item Value Reference Range Interpretation Comments POC-GLUCOSE METER 185 mg/dL 70-110 H TESTED AT [facility] 67[facility] (BEAKER) (test code = [place] 1538) [address] PTH, [id number] 05:01:00 Test Item Value Reference Range Interpretation Comments PARATHYROID HORMONE INTACT 114.5 pg/mL 8.5-72.5 H (BEAKER) (test code = 577) Effective 08/05/2014: Reference Range ChangeNew: 8.5-72.5 Previous: 15.0-90.0 BASIC METABOLIC [id number] 04:53:00 Test Item Value Reference Range Interpretation [...] S NOT APPLICABLE FOR DIALYSIS PATIEN TS. [id number] 04:52:00 Test Item Value Reference Range Interpretation Comments PHOSPHORUS (BEAKER) (test code = 3.4 mg/dL 2.3-4.7 604) POCT-GLUCOSE [id number] 04:18:00 Test Item Value Reference Range Interpretation Comments POC-GLUCOSE METER 134 mg/dL 70-110 H TESTED AT [place] [address] (BEAKER) (test code = [place] 1538) [address] POCT-GLUCOSE [id number] 03:10:00 Test Item Value Reference Range Interpretation Comments POC-GLUCOSE METER 161 mg/dL 70-110 H TESTED AT [place] [address] (BEAKER) (test code = [place] [facility] 1538) [address] POCT-GLUCOSE [id number] 02:13:00 Test Item Value Reference Range Interpretation Comments POC-GLUCOSE METER 173 mg/dL 70-110 H TESTED AT [place] [address] (BEAKER) (test code = [facility] 1538) [address] BASIC METABOLIC [id number] 01:40:00 Test Item Value Reference Range Interpretation [...] NOT APPLICABLE FOR DIALYSIS PATIEN TS. POCT-GLUCOSE [id number] 01:10:00 Test Item Value Reference Range Interpretation Comments POC-GLUCOSE METER 114 mg/dL 70-110 H TESTED AT [place] [address] (BEAKER) ([facility] 1538) [address] POCT-GLUCOSE [id number] 00:44:00 Test Item Value Reference Range Interpretation Comments POC-GLUCOSE METER 152 mg/dL 70-110 H TESTED AT [place] [address] ([facility]) (test code = [facility] 1538) [address] POCT-GLUCOSE [id number] 23:07:00 Test Item Value Reference Range Interpretation Comments POC-GLUCOSE METER 162 mg/dL 70-110 H TESTED AT [place] [address] ([facility]) (test code = [facility] 1538) [address] POCT-GLUCOSE [id number] 22:12:00 Test Item Value Reference Range Interpretation Comments POC-GLUCOSE METER 115 mg/dL 70-110 H TESTED AT [place] [address] ([facility]) (test code = [facility] 1538) [address] POCT-GLUCOSE [id number] 21:20:00 Test Item Value Reference Range Interpretation Comments POC-GLUCOSE METER 88 mg/dL 70-110 TESTED AT [place] [address] ([facility]) (test code = [facility] [address]38) POCT-GLUCOSE [id number] 20:10:00 Test Item Value Reference Range Interpretation Comments POC-GLUCOSE METER 109 mg/dL 70-110 TESTED AT [place] [address] ([facility]) (test code = [facility] 1538) [address] HEPATITIS B SURFACE [id number] 19:53:00 Test Item Value Reference Range Interpretation Comments HEPATITIS B SURFACE ANTIGEN (2) Nonreactive Nonreactive (BEAKER) (test code = 2585) BASIC METABOLIC [id number] 19:35:00 Test Item Value Reference Range Interpretation [...] NOT APPLICABLE FOR DIALYSIS PATIEN TS. POCT-GLUCOSE [id number] 19:14:00 Test Item Value Reference Range Interpretation Comments POC-GLUCOSE METER 179 mg/dL 70-110 H TESTED AT [facility] (BEAKER) (test code = [facility] [place] 1538) [address] POCT-GLUCOSE [id number] 17:57:00 Test Item Value Reference Range Interpretation Comments POC-GLUCOSE METER 173 mg/dL 70-110 H TESTED AT [facility] (BEAKER) (test code = [facility] [place] 1538) [address] BASIC METABOLIC [id number] 16:42:00 Test Item Value Reference Range Interpretation [...] NOT APPLICABLE FOR DIALYSIS PATIEN TS. POCT-GLUCOSE [id number] 15:59:00 Test Item Value Reference Range Interpretation Comments POC-GLUCOSE METER 289 mg/dL 70-110 H TESTED AT [facility] (BEAKER) (test code = [facility] [place] 1538) [address] POCT-GLUCOSE [id number] 15:23:00 Test Item Value Reference Range Interpretation Comments POC-GLUCOSE METER 296 mg/dL 70-110 H TESTED AT [place] [address] ([facility]) (test code = [place] 1538) [address] POCT-GLUCOSE [id number] 15:23:00 Test Item Value Reference Range Interpretation Comments POC-GLUCOSE METER 342 mg/dL 70-110 H TESTED AT [place] [address] (BEAKER) (test code = [place] 1538) [address] BASIC METABOLIC [id number] 12:33:00 Test Item Value Reference Range Interpretation [...] 8.4-10.2 L (test code = 697) EGFR ([facility]) (test 6 mL/min/1.73 ESTIMAT ED GFR IS code = 1092) sq m NOT ACCURATE CREATININE CLEARANCE IN PREDICTING GLOMERULAR FILTRATION RATE . ESTIMATED GFR I S NOT APPLICABLE FOR DIALYSIS PATIEN TS. POCT-GLUCOSE [id number] 12:23:00 Test Item Value Reference Range Interpretation Comments POC-GLUCOSE METER 231 mg/dL 70-110 H TESTED AT [place] [address] ([facility]) (test code = [facility] [place] 1538) [address] HEMOGLOBIN [id number] 11:38:00 Test Item Value Reference Range Interpretation Comments HEMOGLOBIN A1C (BEAKER) (test code = 9.9 % 4.3-6.1 H 368) POCT-GLUCOSE [id number] 11:09:00 Test Item Value Reference Range Interpretation Comments POC-GLUCOSE METER 212 mg/dL 70-110 H TESTED AT [place] [address] ([facility]) (test code = [facility] [place] 1538) [address] BASIC METABOLIC [id number] 10:52:00 Test Item Value Reference Range Interpretation [...] S NOT APPLICABLE FOR DIALYSIS PATIEN TS. [id number] 10:31:00 Test Item Value Reference Range Interpretation Comments MAGNESIUM (BEAKER) (test code = 2.4 mg/dL 1.6-2.6 627) POCT-GLUCOSE [id number] 10:17:00 Test Item Value Reference Range Interpretation Comments POC-GLUCOSE METER 202 mg/dL 70-110 H TESTED AT [facility] 67[facility] (BEAKER) (test code = [place] 1538) [address] TROPONIN [id number] 10:16:00 Test Item Value Reference Range Interpretation [...] acute neurological disease, and persistent tachyarrhythmia.BLOOD GAS, [id number] 09:27:00 Test Item Value Reference Range Interpretation [...] (test code = 1819) 21.0 % POCT-GLUCOSE [id number] 09:19:00 Test Item Value Reference Range Interpretation Comments POC-GLUCOSE METER 179 mg/dL 70-110 H TESTED AT [place] [address] ([facility]) (test code = [place] 1538) [address] LACTIC ACID, VENOUS, WHOLE [id number] 09:13:00 Test Item Value Reference Range Interpretation Comments LACTATE BLOOD VENOUS (2) (BEAKER) 1.5 mmol/L 0.5-2.2 (test code = 2872) Effective 01/20/2016: Units/Reference Range ChangeNew: 0.5-2.2 mmol/L Previous: 5-20 mg/dLKETONE, [id number] 08:51:00 Test Item Value Reference Range Interpretation Comments KETONES, BLOOD (BEAKER) (test code 0.0 mmol/L <0.4 = 1103) POCT-GLUCOSE [id number] 08:08:00 Test Item Value Reference Range Interpretation Comments POC-GLUCOSE METER 211 mg/dL 70-110 H TESTED AT [place] [address] (BEAKER) (test code = [place] 1538) [address] POCT-GLUCOSE [id number] 07:30:00 Test Item Value Reference Range Interpretation Comments POC-GLUCOSE METER 230 mg/dL 70-110 H TESTED AT [place] [address] ([facility]) (test code = [place] [facility] 1538) [address] POCT-GLUCOSE [id number] 06:05:00 Test Item Value Reference Range Interpretation Comments POC-GLUCOSE METER 349 mg/dL 70-110 H Notified Pau Bryant MD/TESTED ([facility]) (test code = AT [facility] [address] [facility] 1538) [facility] [address] [id number] 05:46:00 Test Item Value Reference Range Interpretation Comments GLUCOSE RANDOM (BEAKER) (test code 472 mg/dL 70-105 HH = 652) Effective 08/05/2014: Reference Range Change-Adult onlyNew: 70-105 Previous: 70-110If last glucose was less than 500, may do bedside glucose instead of serum glucose.[id number] 05:31:00 Test Item Value Reference Range Interpretation Comments POTASSIUM (BEAKER) (test code = 4.8 meq/L 3.5-5.1 379) If last glucose was less than 500, may do bedside glucose instead of serum glucose.KETONE, [id number] 05:16:00 Test Item Value Reference Range Interpretation Comments KETONES, BLOOD ([facility]) (test code 0.0 mmol/L <0.4 = 1103) POCT-GLUCOSE [id number] 05:00:00 Test Item Value Reference Range Interpretation Comments POC-GLUCOSE METER 456 mg/dL 70-110 HH TESTED AT [place] [address] ([facility]) (test code = HLA Mai [facility] 1538) [address] POCT-GLUCOSE [id number] 04:08:00 Test Item Value Reference Range Interpretation Comments POC-GLUCOSE METER > mg/dL 70-110 HH OUTSIDE ME ASURING (BEAKER) (test code RANGETES CASANDRA AT [place] [address] = 1538) [facility] [address] [id number] 03:41:00 Test Item Value Reference Range Interpretation Comments GLUCOSE RANDOM (BEAKER) (test code 705 mg/dL 70-105 HH = 652) Effective 08/05/2014: Reference Range Change-Adult onlyNew: 70-105 Previous: 70-110If last glucose was less than 500, may do bedside glucose instead of serum glucose.URINALYSIS W/ REFLEX URINE [id number] 03:02:00 Test Item Value Reference Range Interpretation [...] code = 1584) SOURCE(BEAKER) (test code = 9154) [id number] 02:51:00 Test Item Value Reference Range Interpretation Comments GLUCOSE RANDOM (BEAKER) (test code 684 mg/dL 70-105 HH = 652) Effective 08/05/2014: Reference Range Change-Adult onlyNew: 70-105 Previous: 70-110If last glucose was less than 500, may do bedside glucose instead of serum glucose.COMPREHENSIVE METABOLIC [id number] 02:51:00 Test Item Value Reference Range Interpretation [...] may do bedside glucose instead of serum glucose.[id number] 02:50:00 Test Item Value Reference Range Interpretation Comments THYROID STIMULATING HORMONE 2.15 uIU/mL 0.35-4.94 (BEAKER) (test code = 772) [id number] 02:45:00 Test Item Value Reference Range Interpretation Comments MAGNESIUM (BEAKER) (test code = 2.0 mg/dL 1.6-2.6 627) [id number] 02:45:00 Test Item Value Reference Range Interpretation Comments PHOSPHORUS (BEAKER) (test code = 4.4 mg/dL 2.3-4.7 604) CREATINE KINASE (CK), TOTAL AND [id number] 02:41:00 Test Item Value Reference Range Interpretation Comments CREATINE KINASE TOTAL (BEAKER) 140 U/L 29-200 (test code = 380) CREATINE KINASE-MB (BEAKER) (test 7.2 ng/mL 0.0-6.6 H code = 750) CREATINE KINASE-MB INDEX (BEAKER) 5.1 % (test code = 395) Effective 08/05/2014: CK-MB Reference Range ChangeNew: 0.0-6.6 Previous: 0.0-4.9CK-MB Reference Range:<6.7 Normal6.7-10.0 Borderline>10.0 AbnormalTROPONIN [id number] 02:36:00 Test Item Value Reference Range Interpretation [...] renalfailure, acidosis, acute neurological disease, and persistent tachyarrhythmia.[id number] 02:31:00 Test Item Value Reference Range Interpretation Comments POTASSIUM (BEAKER) (test code = 4.8 meq/L 3.5-5.1 379) If last glucose was less than 500, may do bedside glucose instead of serum glucose.CBC W/PLT COUNT & AUTO [id number] 02:31:00 Test Item Value Reference Range Interpretation [...] 0.00-0.20 (test code = 417) 0.000.640.000.580.000.000.000.00BLOOD GAS, [id number] 02:26:00 Test Item Value Reference Range Interpretation [...] L code = 388) BASE EXCESS ARTERIAL ([facility]) -10.2 mmol/L -2.0-3.0 L (test code = 387) PATIENT TEMPERATURE ([facility]) 37.0 C (test code = 1818) FIO2 ([facility]) (test code = 1819) 30.0 % LACTIC ACID, ARTERIAL, WHOLE [id number] 02:25:00 Test Item Value Reference Range Interpretation Comments LACTATE BLOOD ARTERIAL (2) 4.9 mmol/L 0.5-2.2 H ([facility]) (test code = 2874) Effective 01/20/2016: Units/Reference Range ChangeNew: 0.5-2.2 mmol/L Previous: 5-20 mg/dLPOCT-GLUCOSE [id number] 02:18:00 Test Item Value Reference Range Interpretation Comments POC-GLUCOSE METER 493 mg/dL 70-110 HH TESTED AT [facility] ([facility]) (test code = [place] 1538) [address] [id number] 02:17:00 Test Item Value Reference Range Interpretation Comments PARTIAL THROMBOPLASTIN TIME 25.3 seconds 22.5-36.0 ([facility]) (test code = 760) PROTHROMBIN TIME/[id number] 02:16:00 Test Item Value Reference Range Interpretation Comments PROTIME ([facility]) (test code = 13.2 seconds 11.7-14.7 759) INR ([facility]) (test code = 370) 1.0 <=5.9 RECOMMENDED COUMADIN/WARFARIN INR THERAPY RANGESSTANDARD DOSE: 2.0 - 3.0 Includes: PROPHYLAXIS forvenous thrombosis, systemic embolization; TREATMENT for venous thrombosis and/or pulmonary embolus.HIGH RISK: Target INR is 2.5-3.5 for patients with mechanical heart valves.
[2020-03-09] MEDS ORDERED: METHYLPREDNISOLONE 125 MG INJ ONE (08:20)
[2020-03-09] MEDS ORDERED: FAMOTIDINE 20 MG/2 ML VIAL IV ONE (08:21)
[2020-03-09] MEDS ORDERED: DIPHENHYDRAMINE 50 MG/ML VIAL ONE (08:21)
[2020-03-09 08:30] LABS: Absolute Lymphocytes (CBC) 0.9 K/uL (0.7-4.9); Basophils % 1.2 % (0-1.3); Hematocrit 35.3 % (39.6-49.0); Lymphocytes % 17.7 % (15.3-44.8); RBC Red Blood Cell Count 3.59 M/uL (4.33-5.43)
[2020-03-09] MEDS ORDERED: VANCOMYCIN/NS 1 gm 1 GM/250 ML BAG IV ONE (08:30)
[2020-03-09 08:33] LABS: Protime INR 0.91
--- NOTE | 2020-03-09 08:58 | RAD REPORT ---
EXAM DESCRIPTION: CT - Head Brain Wo Cont - 03/09/2020 8:40 am CLINICAL HISTORY: Headache COMPARISON: 2015 TECHNIQUE: Computed axial tomography of the head was obtained. IV contrast was not requested. All CT scans are performed using dose optimization technique as appropriate and may include automated exposure control or mA/KV adjustment according to patient size. FINDINGS: An intracranial bleed is not seen . The ventricles are normal in caliber. No extra-axial fluid collection is noted. The right globe is calcified and deformed unchanged. Fluid within the sinuses/ mastoids is not seen. IMPRESSION: No acute intracranial abnormality is seen. If patient's symptoms persist MRI of the bra in would be recommended.
--- NOTE | 2020-03-09 09:12 | RAD REPORT ---
EXAM DESCRIPTION: CT - Soft Tissue Neck Wo Contr - 03/09/2020 8:40 am CLINICAL HISTORY: Neck pain and swelling COMPARISON: None TECHNIQUE: Computed axial tomography of the neck was obtained. IV contrast was not requested. Coron al and sagittal reconstruction was performed. All CT scans are performed using dose optimization technique as appropriate and may include automated exposure control or mA/KV adjustment according to patient size. FINDINGS: Extensive edema is present throughout the subcutaneous tissues of the face and neck bilate rally. It appears that a right mandibular tooth has been resected. Prominent lucency within the left mandibl e may be secondary to tooth removal or abscess. Lucencies surround 2 right mandibular probably periap ical abscesses. 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 The parotid, submandibular and thyroid glands are unremarkable. The pharynx, larynx, tongue base and epiglottis appear unremarkable. Low-density is present within the retropharyngeal space. 25 millimeter left neck lymph node IMPRESSION: Extensive edema throughout the subcutaneous tissues of the face and neck bilaterally consistent with a cellulitis. Right mandibular periapical tooth abscesses suspected Low-density within the retropharyngeal space could represent edema or abscess. It is difficult to dis tinguish between the two on an unenhanced CT scan. If clinically indicated further evaluation with an enhanced MRI may be helpful
--- NOTE | 2020-03-09 09:12 | RAD REPORT ---
EXAM DESCRIPTION: CT - Facial Bones W/ Mpr - 03/09/2020 8:40 am CLINICAL HISTORY: Facial swelling and pain COMPARISON: None TECHNIQUE: Computed axial tomography of the face was obtained. Coronal and sagittal reconstruction w as performed. All CT scans are performed using dose optimization technique as appropriate and may include automated exposure control or mA/KV adjustment according to patient size. FINDINGS: Extensive edema is present throughout the subcutaneous tissues of the face and neck bilate rally. It appears that a right mandibular tooth has been resected. Prominent lucency within the left mandibl e may be secondary to tooth removal or abscess. Lucencies surround 2 right mandibular probably periap ical abscesses. 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 The parotid, submandibular and thyroid glands are unremarkable. The pharynx, larynx, tongue base and epiglottis appear unremarkable. Low-density is present within the retropharyngeal space. 25 millimeter left neck lymph node IMPRESSION: Extensive edema throughout the subcutaneous tissues of the face and neck bilaterally con sistent with a cellulitis. Right mandibular periapical tooth abscesses suspected Low-density within the retropharyngeal space could represent edema or abscess. It is difficult to dis tinguish between the two on an unenhanced CT scan. If clinically indicated further evaluation with an enhanced MRI may be helpful
[2020-03-09 09:14] LABS: Albumin 3.7 g/dL (3.4-5.0); Bilirubin Direct 0.1 mg/dL (0-0.2); Bilirubin Total 0.3 mg/dL (0.2-1.0); Protein, Total 7.1 g/dL (6.4-8.2)
[2020-03-09 09:16] LABS: Potassium 5.6 mmol/L (3.5-5.1)
--- NOTE | 2020-03-09 09:21 | RAD REPORT ---
EXAM DESCRIPTION: Andi Single View03/09/2020 9:14 am CLINICAL HISTORY: Chest pain COMPARISON: 2017 FINDINGS: The lungs appear clear of acute infiltrate. The heart is normal size. Central venous cath eter is present IMPRESSION: No acute abnormalities displayed
--- NOTE | 2020-03-09 09:54 | ER ---
Nurse's Notes [facility] Name: Orlando Warren Age: 44 yrs Sex: Male : 1975 Arrival Date: 03/09/2020 Time: 07:40 Bed 4 Private MD: Diagnosis: Cellulitis and acute lymphangitis of neck;Cellulitis and acute lymphangitis of face;Periapical abscess without sinus;Diabetes mellitus due to underlying condition with hyperglycemia;Hyperkalemia Presentation: 03/09 07:52 Chief complaint: Patient states: facial swelling that began last night, is much worse ss this morning. Pt had dental surgery 1 week ago. Coronavirus screen: Proceed with normal triage. Patient denies a cough. Patient denies shortness of breath or difficulty breathing. Patient denies measured and/or subjective temperature greater than 100.4F prior to today's visit. Patient denies travel on a cruise ship or to a country the [facility] currently lists as an affected area. Ebola Screen: Patient denies exposure to infectious person. Patient denies travel to an Ebola-affected area in the 21 days before illness onset. Initial Sepsis Screen: Does the patient meet any 2 criteria? No. Patient's initial sepsis screen is negative. Does the patient have a suspected source of infection? No. Patient's initial sepsis screen is negative. Risk Assessment: Do you want to hurt yourself or someone else? Patient reports no desire to harm self or others. Onset of symptoms was March 08, 2020. 07:52 Method Of Arrival: Ambulatory ss 07:52 Acuity: DEMARIO 2 ss Triage Assessment: 07:55 General: Appears distressed, uncomfortable, Behavior is cooperative, appropriate for bp age, anxious. Pain: Denies pain. EENT: EVELIA-ORBITAL EDEMA, LIP SWELLING. Neuro: No deficits noted. Cardiovascular: No deficits noted. Respiratory: Airway is patent Respiratory effort is even, unlabored. GI: No signs and/or symptoms were reported involving the gastrointestinal system. : No signs and/or symptoms were reported regarding the genitourinary system. Derm: No deficits noted. Musculoskeletal: No deficits noted. Historical: - Allergies: 07:54 PENICILLINS; ss 07:54 Phenergan; ss - PMHx: 07:54 Diabetes - IDDM; ESRD; GERD; Hypertension; ss - Immunization history:: Adult Immunizations up to date. - Social history:: Smoking status: Patient denies any tobacco usage or history of. Screenin:55 Abuse screen: Denies threats or abuse. Denies injuries from another. Nutritional bp screening: No deficits noted. Tuberculosis screening: No symptoms or risk factors identified. Fall Risk None identified. Assessment: 07:55 General: SEE TRIAGE NOTE. bp 08:15 Reassessment: STAFF UNABLE TO OBTAIN PIV, PROVIDER NOTIFIED. 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 bp 10:29 Reassessment: REPORT TO POLLY SHERWOOD AT [facility] ER. TRANSPORT PENDING. bp 11:04 Reassessment: EMS AT B/S FOR TRANSPORT. bp Vital Signs: 07:52 BP 120 / 78; Pulse 77; Resp 17; Temp 97.2(TE); Pulse Ox 100% on R/A; Weight 57 kg; ss Height 5 ft. 8 in. (172.72 cm); Pain 0/10; 08:30 Pulse 73; Resp 10; Pulse Ox 100% ; bp 10:28 BP 169 / 90; Pulse 84; Resp 16; Pulse Ox 100% ; bp 07:52 Body Mass Index 19.11 (57.00 kg, 172.72 cm) ED Course: 07:40 Patient arrived in ED. ag5 07:52 Tyler Turner PA is PHCP. cp 07:52 Jam Antunez MD is Attending Physician. cp 07:54 Triage completed. ss 07:54 Arm band placed on right wrist. ss 07:55 Patient has correct armband on for positive identification. Bed in low position. Call bp light in reach. Side rails up X2. 08:24 Min Ramirez, RN is Primary Nurse. bp 08:40 CT Head Brain wo Cont In Process Unspecified. EDMS 08:40 CT Facial Bones W/O Con In Process Unspecified. EDMS 08:40 Soft Tissue Neck Wo Contr In Process Unspecified. EDMS 09:03 Chest Single View XRAY In Process Unspecified. EDMS 09:03 Inserted 20 GAUGE 10 CM POWERGLIDE MIDLINE INSERTED TO R UPPER ARM USING ASEPTIC ss TECHNIQUE. PT TOLERATED WELL. GOOD BLOOD RETURN NOTED, FLUSHES EASILY. 09:07 EKG done, by ED staff, reviewed by Tyler FLETCHER. dh3 09:28 attempted transfer to [facility], pt cannot be transferred to [facility] due to not having bd maxillofacial dr. sari gomez. 09:33 attempted transfer to [facility]. bd 10:04 pt accepted in transfer to [facility] er. admin approval given by annabelle morales. bd 11:05 No provider procedures requiring assistance completed. Patient transferred, IV remains bp in place. Administered Medications: 09:00 Drug: Cefepime 1 grams Route: IVPB; Rate: 200 ml/hr; Infused Over: 30 mins; Site: Other;bp 11:11 Follow up: IV Status: Completed infusion; IV Intake: 100ml bp 09:00 Drug: SOLU-Medrol 125 mg Route: IVP; Site: right antecubital; hb 09:47 Follow up: Response: No adverse reaction bp 09:00 Drug: Benadryl 25 mg Route: IVP; Site: right antecubital; hb 09:47 Follow up: Response: No adverse reaction bp 09:00 Drug: Pepcid 20 mg Route: IVP; Site: right antecubital; hb 09:47 Follow up: Response: No adverse reaction bp 09:30 Drug: vancoMYCIN 1 grams Route: IVPB; Infused Over: 2 hrs; Site: Other; bp 11:11 Follow up: IV Status: Completed infusion; IV Intake: 250ml bp 09:40 Drug: Albuterol 2.5 mg Route: Inhalation; bp 10:00 Drug: Insulin Regular Human 10 units {Co-Signature: ca1 (Elena Matta RN).} Route: IVP; bp Site: Other; 11:11 Follow up: Response: No adverse reaction bp 10:00 Drug: Albuterol 2.5 mg Route: Inhalation; bp 10:00 Drug: Kayexalate 30 grams Route: PO; bp 11:11 Follow up: Response: No adverse reaction bp 10:20 Drug: Albuterol 2.5 mg Route: Inhalation; bp Intake: 11:11 IV: 100ml; Total: 100ml. bp 11:11 IV: 250ml; Total: 350ml. bp Outcome: 09:53 ER care complete, transfer ordered by . cp 11:05 Transferred by ground EMS to [facility], Transfer form completed. bp 11:05 Condition: stable 11:05 Instructed on the need for transfer. 11:15 Patient left the ED. bp Signatures: Dispatcher [employer] EDMS Maribel Barahona Shelby, KAELA RN ss Tyler Turner PA PA cp Baxter, Heather, RN RN Anabella López [facility] Min Ramirez RN RN bp Luz Maria Trevino ag5 Elena Matta RN ca1 Corrections: (The following items were deleted from the chart) 08:30 08:26 Reassessment: STAFF UNABLE TO OBTAIN PIV, PROVIDER NOTIFIED bp bp
--- NOTE | 2020-03-09 09:54 | EDPHYS ---
Physician Documentation [facility] Name: Orlando Warren Age: 44 yrs Sex: Male : 1975 Arrival Date: 03/09/2020 Time: 07:40 Bed 4 Private MD: ED Physician Jam Antunez HPI: 03/09 08:00 This 44 yrs old Male presents to ER via Ambulatory with complaints of Facial cp Swelling. 08:00 The patient or guardian complains of swelling, tenderness. The symptoms are located cp anterior neck with right worse than left. 08:00 Onset: The symptoms/episode began/occurred yesterday, and became worse today. cp Associated signs and symptoms: Pertinent negatives: fever, headache, vomiting, difficulty swallowing, difficulty breathing. Historical: - Allergies: 07:54 PENICILLINS; ss 07:54 Phenergan; ss - PMHx: 07:54 Diabetes - IDDM; ESRD; GERD; Hypertension; ss - Immunization history:: Adult Immunizations up to date. - Social history:: Smoking status: Patient denies any tobacco usage or history of. ROS: 08:05 Constitutional: Negative for body aches, chills, fever, poor PO intake. cp 08:05 Eyes: Negative for discharge, pain, redness. cp 08:05 ENT: Negative for ear pain, sinus pain, sore throat, difficulty swallowing, difficulty handling secretions. 08:05 Neck: Positive for swelling, tenderness, Negative for stiffness. 08:05 Cardiovascular: Negative for chest pain, palpitations. 08:05 Respiratory: Negative for cough, shortness of breath, wheezing. 08:05 Abdomen/GI: Negative for abdominal pain, nausea, vomiting, and diarrhea. 08:05 Skin: Negative for rash. 08:05 Neuro: Negative for altered mental status, headache, weakness. 08:05 All other systems are negative. Exam: 08:10 Constitutional: The patient appears in no acute distress, alert, awake, cp non-diaphoretic, non-toxic, well developed, well nourished. 08:10 Head/face: Noted is swelling, that is moderate, of the right cheek, left cheek and cp left jaw, tenderness, that is mild, of the right cheek, left cheek and left jaw. 08:10 Eyes: Pupils: equal, round, and reactive to light and accomodation, Extraocular movements: intact throughout, Conjunctiva: normal, no exudate, no injection, Sclera: no appreciated abnormality, Lids and lashes: appear normal, bilaterally. 08:10 ENT: External ear(s): are unremarkable, Nose: is normal, Mouth: Lips: moist, Oral mucosa: pink and intact, moist, Posterior pharynx: Airway: no evidence of obstruction, patent, Uvula: midline, swelling, is not appreciated, erythema, is not appreciated, exudate, is not appreciated. 08:10 Neck: External neck: swelling, that is moderate, of the thyroid cartilage, left submandibular area, left sternocleidomastoid and left side of neck, tenderness, that is mild, of the thyroid cartilage, left submandibular area and left sternocleidomastoid, ROM/movement: is normal, is supple, no meningismus, no nuchal rigidity. 08:10 Chest/axilla: Inspection: normal, Palpation: is normal, no crepitus, no tenderness. 08:10 Cardiovascular: Rate: normal, Rhythm: regular, JVD: is not appreciated. 08:10 Respiratory: the patient does not display signs of respiratory distress, Respirations: normal, no use of accessory muscles, no retractions, labored breathing, is not present, Breath sounds: are clear throughout, no decreased breath sounds. 08:10 Abdomen/GI: Inspection: abdomen appears normal, Palpation: abdomen is soft and non-tender, in all quadrants. 08:10 Skin: no rash present. 08:10 Neuro: Orientation: to person, place \T\ time. Mentation: is normal, Motor: moves all fours, strength is normal. 09:18 ECG was reviewed by the Attending Physician. cp Vital Signs: 07:52 BP 120 / 78; Pulse 77; Resp 17; Temp 97.2(TE); Pulse Ox 100% on R/A; Weight 57 kg; ss Height 5 ft. 8 in. (172.72 cm); Pain 0/10; 08:30 Pulse 73; Resp 10; Pulse Ox 100% ; bp 10:28 BP 169 / 90; Pulse 84; Resp 16; Pulse Ox 100% ; bp 07:52 Body Mass Index 19.11 (57.00 kg, 172.72 cm) ss MDM: 07:58 Patient medically screened. cp 08:30 Differential diagnosis: torticollis, allergic reaction, submandibular abscess, cp retropharyngeal abscess. 09:30 Data reviewed: vital signs, nurses notes, lab test result(s), radiologic studies, CT cp scan, I have discussed the patient's presentation/case with the attending Emergency Department Physician;. 09:30 Counseling: I had a detailed discussion with the patient and/or guardian regarding: the cp historical points, exam findings, and any diagnostic results supporting the discharge/admit diagnosis, lab results, radiology results, the need to transfer to another facility, [facility] does not immediately have the required specialist. 03/09 08:10 Order name: Basic Metabolic Panel; Complete Time: 09:28 03/09 09:29 Interpretation: Normal except: NA 129; K 5.6; CL 95; GLUC 461; BUN 45; CRE 7.82; GFR 7; cp CA 8.0. 03/09 08:10 Order name: Blood Culture Adult (2) 03/09 08:10 Order name: CBC with Diff; Complete Time: 09:28 03/09 09:29 Interpretation: Normal except: RBC 3.59; HGB 11.4; HCT 35.3; PLT 112; EOSINOPHIL % 4.9. 03/09 08:10 Order name: Lactate; Complete Time: 09:28 03/09 09:30 Interpretation: Within normal limits: LAC 0.9. 03/09 08:10 Order name: LFT's; Complete Time: 09:28 03/09 08:10 Order name: Procalcitonin; Complete Time: :28 03/09 09:30 Interpretation: Reviewed. 03/09 08:10 Order name: Protime (+inr); Complete Time: 09:28 03/09 08:10 Order name: Ptt, Activated; Complete Time: 09:28 03/09 08:10 Order name: Chest Single View XRAY; Complete Time: :28 03/09 09:31 Interpretation: Report review. 03/09 08:10 Order name: CT Head Brain wo Cont; Complete Time: 09:28 03/09 08:10 Order name: CT Facial Bones W/O Con; Complete Time: 09:28 03/09 08:17 Order name: Soft Tissue Neck Wo Contr; Complete Time: :28 EDMS 03/09 08:10 Order name: Accucheck; Complete Time: 08:27 cp 03/09 08:10 Order name: Cardiac monitoring; Complete Time: 08:27 cp 03/09 08:10 Order name: EKG - Nurse/Tech; Complete Time: 09:01 cp 03/09 08:10 Order name: IV Saline Lock - Large Bore; Complete Time: 09:01 cp 03/09 08:10 Order name: Labs collected and sent; Complete Time: 09:00 cp 03/09 08:10 Order name: O2 Per Protocol; Complete Time: 08:26 cp 03/09 08:10 Order name: O2 Sat Monitoring; Complete Time: 08:26 cp 03/09 08:10 Order name: Urine Dipstick-Ancillary (obtain specimen); Complete Time: 09:05 cp EC:18 Rate is 84 beats/min. Rhythm is regular. FL interval is normal. QRS interval is normal. cp QT interval is normal. T waves are Flattened in leads III, aVL. Interpreted by me. Reviewed by me. Administered Medications: 09:00 Drug: Cefepime 1 grams Route: IVPB; Rate: 200 ml/hr; Infused Over: 30 mins; Site: Other;bp 11:11 Follow up: IV Status: Completed infusion; IV Intake: 100ml bp 09:00 Drug: SOLU-Medrol 125 mg Route: IVP; Site: right antecubital; hb 09:47 Follow up: Response: No adverse reaction bp 09:00 Drug: Benadryl 25 mg Route: IVP; Site: right antecubital; hb 09:47 Follow up: Response: No adverse reaction bp 09:00 Drug: Pepcid 20 mg Route: IVP; Site: right antecubital; hb 09:47 Follow up: Response: No adverse reaction bp 09:30 Drug: vancoMYCIN 1 grams Route: IVPB; Infused Over: 2 hrs; Site: Other; bp 11:11 Follow up: IV Status: Completed infusion; IV Intake: 250ml bp 09:40 Drug: Albuterol 2.5 mg Route: Inhalation; bp 10:00 Drug: Insulin Regular Human 10 units {Co-Signature: ca1 (Elena Matta RN).} Route: IVP; bp Site: Other; 11:11 Follow up: Response: No adverse reaction bp 10:00 Drug: Albuterol 2.5 mg Route: Inhalation; bp 10:00 Drug: Kayexalate 30 grams Route: PO; bp 11:11 Follow up: Response: No adverse reaction bp 10:20 Drug: Albuterol 2.5 mg Route: Inhalation; bp Disposition: 10:15 Chart complete. cp 16:16 Co-signature as Attending Physician, Jam Antunez MD. ma2 Disposition: 03/09/20 09:53 Transfer ordered to [facility]. Diagnosis are Cellulitis and acute lymphangitis of neck, Cellulitis and acute lymphangitis of face, Periapical abscess without sinus, Diabetes mellitus due to underlying condition with hyperglycemia, Hyperkalemia. - Reason for transfer: Higher level of care. - Accepting physician is DR Wood. - Condition is Stable. - Problem is new. - Symptoms have improved. Signatures: Dispatcher [employer] EDMS Jo-Ann Corrigan RN RN ss Tyler Turner PA PA cp Lisa Galicia RN RN hb Peltier, Brian, RN RN bp Alzahri, Mohammad, MD MD ma2 Elena Matta RN ca1 Corrections: (The following items were deleted from the chart) 08:17 08:15 CT-SOFT TISSUE NECK W/O CONTR ordered. EDMS EDMS 09:29 09:28 Normal except: NA 129; K 5.6; CL 95; GLUC 461; BUN 45; CRE 7.82; GFR 7. cp cp 11:15 09:53 03/09/2020 09:53 Transfer ordered to [facility]. Diagnosis is bp Cellulitis and acute lymphangitis of neck; Cellulitis and acute lymphangitis of face; Periapical abscess without sinus; Diabetes mellitus due to underlying condition with hyperglycemia; Hyperkalemia. Reason for transfer: Higher level of care. Accepting physician is DR Wood. Condition is Stable. Problem is new. Symptoms have improved. cp
[2020-03-09] MEDS ORDERED: ALBUTEROL 2.5 MG/3 ML NEB SOL ONE (10:41)
[2020-03-09] MEDS ORDERED: INSULIN -REGULAR HUMAN 50 UNIT/0.5 ML ML ONE (10:42)
[2020-03-09] MEDS ORDERED: SOD POLYSTYREN SUL 15 GM/60 ML UCUP ONE (10:42)
[2020-03-09 11:20] VITALS: TEMP 97.2; O2SAT 100
[2020-03-09 11:22] VITALS: BP 169/90
== END 2020-03-09 11:15 | disposition short-term general hospital (02) ==
LOC: ER 07:38
DX: K04.7 Periapical abscess without sinus (principal); L03.211 Cellulitis of face; L03.221 Cellulitis of neck; L03.212 Acute lymphangitis of face; L03.222 Acute lymphangitis of neck; E11.22 Type 2 diabetes mellitus with diabetic chronic kidney disease; E11.65 Type 2 diabetes mellitus with hyperglycemia; I12.0 Hypertensive chronic kidney disease with stage 5 chronic kidney disease or end stage renal disease; N18.6 End stage renal disease; E87.5 Hyperkalemia; Z88.0 Allergy status to penicillin; Z88.8 Allergy status to other drugs, medicaments and biological substances
CPT/HCPCS: 96365; 96368; 93005; 87040 ×2; 85025; 80048; 36415; 85610; 80076; 83605; 85730; 84145; 70450; 70490; 70486; 76377; 71045; 96375; 99285; 96366; J1200; J3370; J2930

== ENCOUNTER 2020-04-20 05:14 | Inpatient (IN) | payer SELFPAY ==
[2020-04-20] MEDS ORDERED: NA CHLORIDE 0.9% 1,000 ML ONE (05:51)
[2020-04-20] MEDS ORDERED: ONDANSETRON 4 MG/2 ML VIAL ONE (05:51)
[2020-04-20 06:23] LABS: MPV 9.9 fL (7.6-11.3)
[2020-04-20 06:26] LABS: Absolute Lymphocytes (CBC) 1.1 K/uL (0.7-4.9); Basophils % 1.1 % (0-1.3); Lymphocytes % 14.2 % (15.3-44.8); RBC Red Blood Cell Count 1.49 M/uL (4.33-5.43)
[2020-04-20 06:34] LABS: Hematocrit 15.4 % (39.6-49.0)
[2020-04-20] MEDS ORDERED: INSULIN -REGULAR HUMAN 50 UNIT/0.5 ML ML ONE ×4 (06:53→21:10)
[2020-04-20 07:08] LABS: ALT/SGPT 27 U/L (12-78); AST/SGOT 14 U/L (15-37); Albumin 2.6 g/dL (3.4-5.0); Alkaline Phosphatase 61 U/L (45-117); BUN Blood Urea Nitrogen 133 mg/dL (7-18); Bicarbonate 12 mmol/L (21-32); Bilirubin Direct < 0.1 mg/dL (0-0.2); Bilirubin Total 0.3 mg/dL (0.2-1.0); Glucose Level 589 mg/dL (74-106); Lipase 62 U/L (73-393); Sodium Level 128 mmol/L (136-145)
[2020-04-20 07:09] LABS: Potassium 6.1 mmol/L (3.5-5.1)
[2020-04-20 07:14] LABS: Absolute Lymphocytes (CBC) 0.9 K/uL (0.7-4.9); Hematocrit 14.7 % (39.6-49.0); Lymphocytes % 12.3 % (15.3-44.8); MPV 9.9 fL (7.6-11.3); RBC Red Blood Cell Count 1.41 M/uL (4.33-5.43)
[2020-04-20] MEDS ORDERED: CALCIUM GLUCONATE 1 GM IVPB 1 GM/50 ML BAG IV ONE (07:48)
--- NOTE | 2020-04-20 07:50 | ER ---
Nurse's Notes [facility] Name: Orlando Culp Age: 44 yrs Sex: Male : 1975 Arrival Date: 04/20/2020 Time: 05:15 Bed 10 Private MD: Diagnosis: End stage renal disease;Hypotension;Gastrointestinal hemorrhage, unspecified Presentation: 04/20 05:23 Chief complaint: EMS states: BIBA FROM HOME WITH DIARRHEA AND VOMITING. PT IS A mt2 DIABETIC CBG ON [address]. LAST INSULIN ON MONDAY DUE TO LOW PO. PT IN DIALYSIS LAST TX ON MONDAY. STOOL LOOSE AND VOMITING AT BEDSIDE. PT AFEBRILE DENIES COUGH OR SOB. PER PT STOOD UP AND FELT DIZZY AT HOME. STATES B/P WAS LOW. PER EMS B/P \T\ 110/63. Coronavirus screen: Client denies travel out of the [place] in the last 14 days. diarrhea, vomiting. Ebola Screen: No symptoms or risks identified at this time. Initial Sepsis Screen: Does the patient meet any 2 criteria? No. Patient's initial sepsis screen is negative. Does the patient have a suspected source of infection? No. Patient's initial sepsis screen is negative. Risk Assessment: Do you want to hurt yourself or someone else? Patient reports no desire to harm self or others. Onset of symptoms was April 16, 2020. Care prior to arrival: None. 05:23 Method Of Arrival: EMS: [facility] fl2 05:23 Acuity: DEMARIO 3 mt2 07:16 Acuity: DEMARIO 2 iw Triage Assessment: 05:27 General: Appears uncomfortable, Behavior is cooperative. Pain: Denies pain. mt2 Historical: - Allergies: 06:29 Penicillins; mt2 06:29 Phenergan; mt2 - PMHx: 05:00 Diabetes - IDDM; Hypertension; ESRD; mt2 - Immunization history:: Adult Immunizations up to date. - Social history:: Smoking status: Patient/guardian denies using tobacco. Screenin:27 Abuse screen: Denies threats or abuse. Nutritional screening: No deficits noted. mt2 Tuberculosis screening: No symptoms or risk factors identified. Fall Risk None identified. Assessment: 05:00 General: Appears in no apparent distress. malnourished. mt2 05:00 Neuro: No deficits noted. Cardiovascular: No deficits noted. Respiratory: No deficits mt2 noted. GI: Abdomen is flat, Pt is actively vomiting Stools are reported to be loose, diarrhea. Reports diarrhea, nausea, vomiting. : Reports DOES NOT VOID ON HD T-TH-SAT. EENT: Eyes SWELLING ON RIGHT EYE. Derm: No deficits noted. 05:28 Reassessment: CBG 485 AT BDSIDE. mt2 06:21 Reassessment: Patient and/or family updated on plan of care and expected duration. Pain mt2 level reassessed. Patient is alert, oriented x 3, equal unlabored respirations, skin warm/dry/pink. Reassessment: UNABLE TO ACCESS VEIN FOR IV. PROVIDER NOTI FED. General: Appears uncomfortable, Behavior is cooperative. Pain: Denies pain. 07:00 Reassessment: Pt changed of bowel incontinence perineal care provided, fresh brief jr10 placed. Noted to have black stools, pt reports that started 2 days ago, provider aware. 07:11 Reassessment: Patient and/or family updated on plan of care and expected duration. Pain mt2 level reassessed. Patient is alert, oriented x 3, equal unlabored respirations, skin warm/dry/pink. Patient denies pain at this time. General: Appears in no apparent distress. Behavior is cooperative. Vital Signs: 05:23 BP 127 / 68; Pulse 90; Resp 17; Temp 98.1; Pulse Ox 95% on R/A; Weight 60 kg; Pain 0/10;mt2 06:00 BP 114 / 62; Pulse 81; Resp 19; Pulse Ox 95% on R/A; Pain 0/10; mt2 06:55 BP 0 / ???; mt2 07:00 BP 97 / 64; Pulse 81; Resp 17; Temp 97.9(O); Pulse Ox 96% on R/A; Pain 0/10; mt2 09:00 BP 102 / 52; Pulse 104; Resp 20; Temp 97.7; Pulse Ox 100% on R/A; jr10 09:00 see blood transfusion documentation for follow up vitals jr10 ED Course: 05:00 Arm band placed on right wrist. mt2 05:15 Patient arrived in ED. cl3 05:16 Federico Matute MD is Attending Physician. tw4 05:23 Sanjuanita Heredia, KAELA is Primary Nurse. mt2 05:27 Triage completed. mt2 05:28 Placed in gown. Bed in low position. Call light in reach. Side rails up X 1. mt2 06:27 [facility]C [facility] snw 06:40 Inserted saline lock: 18 gauge in right EJ, using aseptic technique. Blood collected. mt2 PROVIDER ACCESS 18 G ON RIGHT EJ Accessed. 07:00 Report received from KAELA Gann. jr10 07:32 Lilian Mckeon RN is Primary Nurse. jr10 07:43 Chest Single View XRAY In Process Unspecified. EDMS 07:47 Suraj Arora MD is Hospitalizing Provider. snw 11:00 Patient admitted, IV remains in place. to ED hold. jr10 Administered Medications: 06:44 Drug: Insulin Regular Human 5 units {Co-Signature: rr5 (Brent Rojas RN).} Route: mt2 Sub-Q; Site: right upper arm; 06:55 Follow up: BP 0 / ???; Response: No adverse reaction mt2 06:53 Not Given (hold per provider): Zofran (Ondansetron) 4 mg IVP once; over 2 minutes mt2 06:54 Not Given (hold per provider): NS 0.9% 1000 ml IV at 1 bolus Per protocol; 1000 mL bolusmt2 08:01 Drug: Calcium Gluconate 1 grams Route: IVPB; Infused Over: 60 mins; Site: right jugular;jr10 09:06 Follow up: Response: No adverse reaction; IV Status: Completed infusion jr10 08:01 Drug: NS 0.9% 250 ml Route: IV; Rate: bolus; Site: right jugular; jr10 08:30 Follow up: Response: No adverse reaction; IV Status: Completed infusion jr10 08:10 Drug: Albuterol 2.5 mg Route: Inhalation; jr10 08:43 Follow up: Response: No adverse reaction jr10 08:20 Drug: Albuterol 2.5 mg Route: Inhalation; jr10 08:43 Drug: Albuterol 2.5 mg Route: Inhalation; jr10 08:48 Drug: Insulin Regular Human 5 units {Co-Signature: aa5 (Lakia Lopez RN).} Route: jr10 IVP; Site: right jugular; 09:07 Follow up: Response: No adverse reaction jr10 09:06 Drug: Albuterol 2.5 mg Route: Inhalation; jr10 09:06 Follow up: Response: No adverse reaction Medication: 09:17 Blood products: PRBCs X 1 unit given. See transfusion record. Outcome: 07:49 Decision to Hospitalize by Provider. snw Signatures: Dispatcher [employer] EDMS Nancy Bolanos, MARIE-C RELAY MOTORMAN-Csnw Kaylan Martin, KAELA SHERWOOD iw Lakia Lopez RN RN aa5 Federico Matute MD MD tw4 Jose Sommer cl3 Sanjuanita Heredia RN RN mt2 Lilian Mckeon RN RN jr10 Brent Rojas RN rr5 Lakia Lopez RN aa5 Corrections: (The following items were deleted from the chart) 06:21 05:23 Chief complaint: EMS states: BIBA FROM HOME WITH DIARRHEA AND VOMITING. PT IS A mt2 DIABETIC CBG ON [address]. LAST INSULIN ON MONDAY DUE TO LOW PO. PT IN DIALYSIS LAST TX ON MONDAY. STOOL LOOSE AND VOMITING AT BEDSIDE. PT AFEBRILE DENIES COUGH OR SOB. mt2 04/21 18:57 18:55 Patient left the ED. aa5 aa5
--- NOTE | 2020-04-20 07:50 | EDPHYS ---
Physician Documentation [facility] Name: Orlando Culp Age: 44 yrs Sex: Male : 1975 Arrival Date: 04/20/2020 Time: 05:15 Bed 10 Private MD: ED Physician HPI: 04/20 07:21 This 44 yrs old Male presents to ER via EMS with complaints of Vomiting/Diarrhea. snw 07:21 The patient presents to the emergency department with nausea, vomiting, diarrhea. snw Onset: The symptoms/episode began/occurred suddenly, 2 day(s) ago, and became worse. Possible causes: unknown. The symptoms are aggravated by last dialysis Monday. Severity of symptoms: in the emergency department the symptoms are unchanged. It is unknown whether or not the patient has had similar symptoms in the past. It is unknown whether or not the patient has recently seen a physician. Historical: - Allergies: 06:29 Penicillins; mt2 06:29 Phenergan; mt2 - PMHx: 05:00 Diabetes - IDDM; Hypertension; ESRD; mt2 - Immunization history:: Adult Immunizations up to date. - Social history:: Smoking status: Patient/guardian denies using tobacco. ROS: 07:23 Eyes: Negative for injury, pain, redness, and discharge, ENT: Negative for injury, snw pain, and discharge, Neck: Negative for injury, pain, and swelling, Cardiovascular: Negative for chest pain, palpitations, positive edema and hypotension, Respiratory: Negative for shortness of breath, cough, wheezing, and pleuritic chest pain, Abdomen/GI: Negative for abdominal pain, constipation Positive for nausea, vomiting, diarrhea Back: Negative for injury and pain, : Negative for injury, bleeding, discharge, and swelling, MS/Extremity: Negative for injury and deformity, Skin: Negative for injury, rash, and discoloration, Neuro: Negative for headache, weakness, numbness, tingling, and seizure. 07:23 Constitutional: Positive for body aches, fatigue, malaise, poor PO intake. Exam: 07:18 Head/Face: Normocephalic, atraumatic. snw 07:18 ENT: Nares patent. No nasal discharge, no septal abnormalities noted. Tympanic membranes are normal and external auditory canals are clear. Oropharynx with no redness, swelling, or masses, exudates, or evidence of obstruction, uvula midline. Mucous membranes moist. Neck: Trachea midline, no thyromegaly or masses palpated, and no cervical lymphadenopathy. Supple, full range of motion without nuchal rigidity, or vertebral point tenderness. No Meningismus. Chest/axilla: Normal chest wall appearance and motion. Nontender with no deformity. No lesions are appreciated. 07:18 Constitutional: The patient appears emaciated, frail, lethargic, edematous, fatigued 07:18 Eyes: Periorbital structures: edema. 07:18 Cardiovascular: Rate: normal, Heart sounds: murmur, Dialysis shunt: Vital Signs: 05:23 BP 127 / 68; Pulse 90; Resp 17; Temp 98.1; Pulse Ox 95% on R/A; Weight 60 kg; Pain 0/10;mt2 06:00 BP 114 / 62; Pulse 81; Resp 19; Pulse Ox 95% on R/A; Pain 0/10; mt2 06:55 BP 0 / ???; mt2 07:00 BP 97 / 64; Pulse 81; Resp 17; Temp 97.9(O); Pulse Ox 96% on R/A; Pain 0/10; mt2 09:00 BP 102 / 52; Pulse 104; Resp 20; Temp 97.7; Pulse Ox 100% on R/A; jr10 09:00 see blood transfusion documentation for follow up vitals jr10 MDM: 05:16 Patient medically screened. tw4 07:17 Data reviewed: vital signs, nurses notes. Data interpreted: Pulse oximetry: on room air snw is 96 %. Interpretation: acceptable. Counseling: I had a detailed discussion with the patient and/or guardian regarding: the historical points, exam findings, and any diagnostic results supporting the discharge/admit diagnosis, the need for further work-up and treatment in the hospital, pt requires urgent dialysis. Physician consultation: Maggie Shah MD was called at 07:18, regarding patient's condition, need to evaluate the patient as soon as possible. 07:37 Physician consultation: Maggie Shah MD was contacted at 07:37, would like snw medications started, Albuterol 10mg. 07:46 Physician consultation: Alvin Beal MD was called at 07:46, was contacted at 07:46, snw regarding consult. 08:40 Physician consultation: Suraj Arora MD was called at 08:40, was contacted at 08:40, snw regarding admission, to the ICU, patient's condition, Dr. Schwartz will place dialysis orders. 04/20 05:29 Order name: Basic Metabolic Panel; Complete Time: 07:11 tw4 04/20 05:29 Order name: CBC with Diff; Complete Time: 06:38 tw4 04/20 05:29 Order name: Hepatic Function; Complete Time: 07:11 tw4 04/20 05:29 Order name: Lipase; Complete Time: 07:11 tw4 04/20 05:38 Order name: Glucose, Ancillary Testing; Complete Time: 06:38 EDMS 04/20 06:33 Order name: Type And Screen mt2 04/20 06:54 Order name: Packed RBC Leukored EDMS 04/20 06:56 Order name: CBC with Diff mt2 04/20 06:56 Order name: BMP mt2 04/20 06:57 Order name: CBC with Automated Diff; Complete Time: 09:03 EDMS 04/20 07:43 Order name: ABO/RH no charge; Complete Time: 07:45 EDMS 04/20 08:52 Order name: Manual Differential; Complete Time: 09:03 EDMS 04/20 14:01 Order name: Glucose, Ancillary Testing; Complete Time: 14:02 EDMS 04/20 14:56 Order name: Glucose Level; Complete Time: 14:58 EDMS 04/20 18:08 Order name: Hemoglobin; Complete Time: 18:12 EDMS 04/20 18:08 Order name: Hematocrit; Complete Time: 18:12 EDMS 04/20 18:43 Order name: Basic Metabolic Panel; Complete Time: 07:20 EDMS 04/20 19:17 Order name: Glucose, Ancillary Testing; Complete Time: 07:20 EDMS 04/20 20:40 Order name: Glucose, Ancillary Testing; Complete Time: 07:20 EDMS 04/21 05:36 Order name: CBC with Automated Diff; Complete Time: 07:20 EDMS 04/21 05:58 Order name: Basic Metabolic Panel; Complete Time: 07:20 EDMS 04/21 05:58 Order name: NT PRO-BNP; Complete Time: 07:20 EDMS 04/21 06:16 Order name: Glucose, Ancillary Testing; Complete Time: 07:20 EDMS 04/21 06:50 Order name: Glucose, Ancillary Testing; Complete Time: 07:20 EDMS 04/21 07:52 Order name: Glucose, Ancillary Testing; Complete Time: 07:54 EDMS 04/21 10:16 Order name: Glucose, Ancillary Testing EDMS 04/21 11:50 Order name: Glucose, Ancillary Testing EDMS 04/20 05:29 Order name: IV Saline Lock; Complete Time: 07:06 tw4 04/20 05:29 Order name: Labs collected and sent; Complete Time: 06:54 tw4 04/20 06:38 Order name: Consent for Blood Transfusion; Complete Time: 09:06 snw 04/20 07:21 Order name: Chest Single View XRAY; Complete Time: 08:33 snw 04/20 07:34 Order name: EKG; Complete Time: 07:36 snw 04/20 07:34 Order name: EKG - Nurse/Tech; Complete Time: 08:48 snw 04/21 16:19 Order name: Glucose, Ancillary Testing EDMS 04/21 17:53 Order name: Hematocrit EDMS 04/21 18:04 Order name: Hemoglobin EDMS EC:18 Rate is 90 beats/min. Rhythm is regular. QRS [place] is Normal. SD interval is normal. QRS snw interval is normal. QT interval is normal. T waves are Flattened. Clinical impression: NSR w/ Non-specific ST/T Changes. Administered Medications: 06:44 Drug: Insulin Regular Human 5 units {Co-Signature: rr5 (Brent Rojas RN).} Route: mt2 Sub-Q; Site: right upper arm; 06:55 Follow up: BP 0 / ???; Response: No adverse reaction mt2 06:53 Not Given (hold per provider): Zofran (Ondansetron) 4 mg IVP once; over 2 minutes mt2 06:54 Not Given (hold per provider): NS 0.9% 1000 ml IV at 1 bolus Per protocol; 1000 mL bolusmt2 08:01 Drug: Calcium Gluconate 1 grams Route: IVPB; Infused Over: 60 mins; Site: right jugular;jr10 09:06 Follow up: Response: No adverse reaction; IV Status: Completed infusion jr10 08:01 Drug: NS 0.9% 250 ml Route: IV; Rate: bolus; Site: right jugular; jr10 08:30 Follow up: Response: No adverse reaction; IV Status: Completed infusion 10 08:10 Drug: Albuterol 2.5 mg Route: Inhalation; 10 08:43 Follow up: Response: No adverse reaction 08:20 Drug: Albuterol 2.5 mg Route: Inhalation; 08:43 Drug: Albuterol 2.5 mg Route: Inhalation; 10 08:48 Drug: Insulin Regular Human 5 units {Co-Signature: aa5 (Lakia Lopez RN).} Route: jr10 IVP; Site: right jugular; 09:07 Follow up: Response: No adverse reaction 10 09:06 Drug: Albuterol 2.5 mg Route: Inhalation; 10 09:06 Follow up: Response: No adverse reaction Disposition: 04/20/20 07:49 Hospitalization ordered by Suraj Arora for Inpatient Admission. Preliminary diagnosis are End stage renal disease, Hypotension, Gastrointestinal hemorrhage, unspecified. - Bed requested for [facility] ER HOLD. - Status is Inpatient Admission. aa5 - Condition is Serious. - Problem is chronic. - Symptoms have worsened. Signatures: Dispatcher [employer] EDMS Maribel Barahona Diana, RN Nancy Da Silva, UNIX SYSTEM ADMINISTRATOR-C UNIX SYSTEM ADMINISTRATOR-Csnw Kaylan Martin, RN KAELA iw Lakia Lopez, RN RN aa5 Federico Matute MD MD tw4 Sanjuanita Heredia RN RN mt2 Lilian Mckeon, RN RN jr10 Brent Rojas RN rr5 Lakia Lopez RN aa5 Corrections: (The following items were deleted from the chart) 06:54 06:38 PACKED RBC LEUKORED -1+BB.LAB.BRZ ordered. EDCT EDMS 06:54 06:39 ABO/RH typing ordered. EDCT EDMS 06:54 06:39 Antibody Screen ordered. [facility] EDMS 08:50 07:49 Hospitalization Ordered by Suraj Arora MD for Inpatient Admission. Preliminary bd diagnosis is End stage renal disease; Hypotension; Gastrointestinal hemorrhage, unspecified. Bed requested for Intensive Care Unit. Status is Inpatient Admission. Condition is Serious. Problem is chronic. Symptoms have worsened. snw 11:41 07:14 Labs - recollect needed ordered. bd jr10 19:47 08:50 04/20/2020 07:49 Hospitalization Ordered by Suraj Arora MD for Inpatient dw Admission. Preliminary diagnosis is End stage renal disease; Hypotension; Gastrointestinal hemorrhage, unspecified. Bed requested for [facility] ER HOLD. Status is Inpatient Admission. Condition is Serious. Problem is chronic. Symptoms have worsened. bd 04/21 09:59 0803 19:47 04/20/2020 07:49 Hospitalization Ordered by Suraj Arora MD for Inpatient iw Admission. Preliminary diagnosis is End stage renal disease; Hypotension; Gastrointestinal hemorrhage, unspecified. Bed requested for Intensive Care Unit. Status is Inpatient Admission. Condition is Serious. Problem is chronic. Symptoms have worsened. dw 04/21 18:55 09:59 04/20/2020 07:49 Hospitalization Ordered by Suraj Arora MD for Inpatient aa5 Admission. Preliminary diagnosis is End stage renal disease; Hypotension; Gastrointestinal hemorrhage, unspecified. Bed requested for [facility] ER HOLD. Status is Inpatient Admission. Condition is Serious. Problem is chronic. Symptoms have worsened. iw
[2020-04-20] MEDS ORDERED: ALBUTEROL 2.5 MG/3 ML NEB SOL ONE (08:15)
--- NOTE | 2020-04-20 08:21 | RAD REPORT ---
EXAM DESCRIPTION: RAD - Chest Single View - 04/20/2020 7:43 am CLINICAL HISTORY: overload, hypertension COMPARISON: None TECHNIQUE: AP portable chest image was obtained 04/20/2020 7:43 am . FINDINGS: No significant pulmonary edema pattern identifiable. No focal mass or consolidation. Heart and vasculature are normal. No measurable pleural effusion and no pneumothorax. No acute bony abnorm ality seen. No acute aortic findings suspected. IMPRESSION: No acute cardiopulmonary process.
[2020-04-20 08:52] LABS: Blood Morphology Comment NOT SEEN (NOT SEEN); Platelet Estimate DECR
[2020-04-20] MEDS ORDERED: ALBUTEROL 2.5 MG/3 ML NEB SOL NEB PRN (11:23)
[2020-04-20] MEDS ORDERED: D50W 25 GM/50 ML SYRINGE/VIAL IV PRN (11:23)
[2020-04-20] MEDS ORDERED: NA CHLORIDE 0.9% 250 ML IV SCH (11:23)
[2020-04-20] MEDS ORDERED: ACETAMINOPHEN 500 MG TAB PO PRN (11:23)
[2020-04-20] MEDS ORDERED: GLUCAGON 1 MG/VIAL IM PRN ×2 (11:23→15:45)
[2020-04-20] MEDS ORDERED: INSULIN -REGULAR HUMAN 50 UNIT/0.5 ML ML SQ SCH ×2 (11:30→18:00)
[2020-04-20] MEDS ORDERED: MANNITOL 25% 12.5 GM/50 ML VIAL IV PRN (12:44)
[2020-04-20] MEDS ORDERED: NA CHLORIDE 0.9% 250 ML ONE (13:53)
[2020-04-20] MEDS ORDERED: DIPHENHYDRAMINE 50 MG/ML VIAL IV ONE (13:54)
[2020-04-20] MEDS ORDERED: DIPHENHYDRAMINE 50 MG/ML VIAL ONE ×2 (14:13→21:51)
--- NOTE | 2020-04-20 15:34 | P.HP ---
Certification for Inpatient Patient admitted to: Inpatient With expected LOS: >2 Midnights Patient will require the following post-hospital care: None Practitioner: I am a practitioner with admitting privileges, knowledge of patient current condition, hospital course, and medical plan of care. Services: Services provided to patient in accordance with Admission requirements found in Title 42 Section 412.3 of the Code of Federal Regulations Patient History Date of Service: 04/20/20 Primary Care Provider: Ulysses Reason for admission: Upper gi bleed History of Present Illness: Patient is an office patient of [employer] with a past medical history of diabetes with polyneuropathy. ESRD, HTN, hyperlipidemia. He has been having nausea and vomitting for the last 2 days. With blood in his vomit. He has also noted some in his stools. This brought him to the ER. The patient has been taking ibuprofen for pain which was perscribed. He has not had a history of PUD in the past. He has been compliant with his dialysis. Normal gets dialysis On . He did have his dialysis on Monday. Allergies Penicillins Allergy (Verified 04/20/20 11:23) Hives/Rash promethazine [From Phenergan] Allergy (Verified 04/20/20 11:23) Rash Home medications list reviewed: Yes - Past Medical/Surgical History Has patient received pneumonia vaccine in the past: No Diabetic: Yes -: esrd -: HTN -: Hyperlipidemia -: seasonal allergies. -: DM2 with polyneuropathy. Review of Systems 10-point ROS is otherwise unremarkable Gastrointestinal: Nausea, Vomiting, Melena, Hematochezia Physical Examination - Physical Exam General: Alert, In no apparent distress HEENT: Atraumatic, PERRLA, Mucous membr. moist/pink, EOMI, Sclerae nonicteric Neck: Supple, 2+ carotid pulse no bruit, No LAD, Without JVD or thyroid abnormality Respiratory: Clear to auscultation bilaterally, Normal air movement Cardiovascular: Regular rate/rhythm, Normal S1 S2 Gastrointestinal: Normal bowel sounds, No tenderness Musculoskeletal: No tenderness Integumentary: No rashes Neurological: Normal gait, Normal speech, Normal strength at 5/5 x4 extr, Normal tone, Normal affect Lymphatics: No axilla or inguinal lymphadenopathy - Studies Laboratory Data (last 24 hrs) 04/20/20 07:00: WBC 6.9, Hgb 4.7 L*, Hct 14.7 L*, Plt Count 108 L 04/20/20 06:56: Sodium Cancelled, Potassium Cancelled, BUN Cancelled, Creatinine Cancelled, Glucose Cancelled 04/20/20 06:03: WBC 7.5, Hgb 4.9 L*, Hct 15.4 L*, Plt Count 111 L 04/20/20 06:03: Sodium 128 L, Potassium 6.1 H*, BUN 133 H, Creatinine 6.51 H*, Glucose 589 H*, Total Bilirubin 0.3, AST 14 L, ALT 27, Alkaline Phosphatase 61, Lipase 62 L Assessment and Plan - Problems (Diagnosis) (1) Upper GI bleed Current Visit: Yes Status: Acute Plan: Consult in with Dr. Beal. Will gently replace his volume. Has recieved 1 unit so far. Another will be given with dialysis. Will need to start protonix. D/c home Ibuprofen. (2) ESRD (end stage renal disease) Current Visit: Yes Status: Acute Plan: Have spoken to Dr. Goldsmith. Will give a slow dialysis today and tomorrow to decrease the elevated BUN. (3) HTN (hypertension) Current Visit: Yes Status: Acute Plan: currently low blood pressure. Will hold his meds untill after his blood counts have been normalized. Normally he is just on amlodipine 5mg po qday. Qualifiers: Hypertension type: essential hypertension Qualified Code(s): I10 - Essential (primary) hypertension (4) Hyperlipidemia Current Visit: Yes Status: Acute Plan: Is stable on atorvastatin 20mg po qday Qualifiers: Hyperlipidemia type: moderate mixed hyperlipidemia not requiring statin therapy Qualified Code(s): E78.2 - Mixed hyperlipidemia (5) DM2 (diabetes mellitus, type 2) Current Visit: Yes Status: Acute Plan: Patient is elevated sugars. He has takes levemir 15 units sq at home. Will start a low dose sliding scale on the patient as well. Qualifiers: Diabetes mellitus oil heaterman insulin use: with oil heaterman use Diabetes bolivar ocampo complication detail: with polyneuropathy Discharge Plan: Home Plan to discharge in: 48 Hours - Advance Directives Does patient have a Living Will: No Does patient have a Durable POA for Healthcare: No - Code Status/Comfort Care Code Status Assessed: No Code Status: Full Code Physician Review: Patient Assessed, Agree with Above Assessment and Plan Critical Care: No Time Spent Managing Pts Care (In Minutes): 60
[2020-04-20] MEDS ORDERED: PANTOPRAZOLE 40 MG INJ IVP ONE (16:46)
[2020-04-20] MEDS ORDERED: SODIUM CHLORIDE 0.9% 10ML INJ IV PRN (16:47)
[2020-04-20] MEDS: PANTOPRAZOLE INJ 80 MG in NA CHLORIDE 0.9% 250 ML IV SCH (17:00)
[2020-04-20] MEDS: INSULIN -REGULAR HUMAN 50 UNIT/0.5 ML ML SQ SCH ×2 (17:20→21:08)
[2020-04-20 17:23] VITALS: BMI 20.1
[2020-04-20] MEDS ORDERED: INSULIN GLARGINE 100 UNITS/ML SQ ONE ×2 (17:38→18:00)
[2020-04-20] MEDS ORDERED: PANTOPRAZOLE 40 MG INJ ONE (17:49)
[2020-04-20 18:04] LABS: Hematocrit 22.1 % (39.6-49.0)
[2020-04-20 18:40] LABS: Potassium 3.8 mmol/L (3.5-5.1)
[2020-04-20] MEDS ORDERED: INSULIN GLARGINE 100 UNITS/ML SQ SCH (21:00)
[2020-04-20] MEDS: DIPHENHYDRAMINE 50 MG/ML VIAL IV PRN (21:45)
[2020-04-20] MEDS ORDERED: EPOETIN ALFA 10,000 UNIT/ML VIAL IV SCH (22:30)
--- NOTE | 2020-04-21 02:59 | CON ---
Date of Consultation: 04/20/2020 Chief Complaint: End-stage renal disease, severe hyperazotemia, metabolic acidosis. The patient is noncompliant with dialysis schedule. The patient came to the hospital because of nausea and vomiting . He was found to have severe hyperazotemia as well as severe anemia. The patient has an episode of hematemesis. He was brought to the emergency room and dialysis was requested for severe hyperazotem ia. The patient apparently was taking ibuprofen for generalized pain. He has history of peptic ulcer dis ease. He has been dialyzed on TTS schedule and this last Monday, he had his dialysis done. Review of Systems: General: Denies fever, chills. Eyes: Denies vision changes. Ears, Nose, mouth, and Throat: Denies sore throat or earache. Respiratory: Denies PND or orthopnea. Cardiovascular: Denies chest pain or palpitation. GI: He was complaining of some epigastric pain. : Denies dysuria or hematuria. All other systems reviewed and all are negative. Past Medical History: End-stage renal disease, hypertension, diabetes mellitus, diabetic neuropathy and retinopathy, seasonal allergies, and hyperlipidemia. Social History: Denies tobacco, alcohol, or illicit drugs. Family History: No kidney disease in the family. Physical Examination: General: The patient is awake, alert, follows commands. Eyes: Anicteric sclerae. EOMI. Ears, Nose, mouth, and Throat: Oral mucosa moist. No pallor. Neck: Supple. No bruits. Lungs: Diminished breath sounds at bases. Heart: S1, S2. Abdomen: Soft. Benign. Extremities: Some edema present. Laboratory Data: WBC 6.9, hemoglobin 4.7, hematocrit 14.7, platelet count 108,000. Sodium 128, pota ssium 6.1, BUN 133, creatinine 6.51, glucose 589, total bilirubin 0.3. Impression And Plan: 1.Severe hyperazotemia, electrolyte abnormalities, metabolic acidosis. The patient will need daily dialysis to control electrolytes and control azotemia. Ultrafiltration was minimal. The patient hammer s not have any significant fluid overload. Adjust ultrafiltration goal to current blood pressure. 2.Hypertension. Blood pressure medication on hold blood pressure is trending down and the patient u sually takes 5 mg of amlodipine. Currently, medication on hold. Monitor the blood pressure during d ialysis and adjust ultrafiltration according to blood pressure. 3.Hyperlipidemia. Per primary team. 4.Hyperkalemia. The patient will have blood work re-evaluated after dialysis. 5.Metabolic acidosis. Continue daily treatment to replace and control metabolic acidosis. ALVA/MODL Voice ID: [id number] Report ID: [id number]
[2020-04-21] MEDS: PANTOPRAZOLE INJ 80 MG in NA CHLORIDE 0.9% 250 ML IV SCH (05:33)
[2020-04-21 05:34] LABS: Absolute Lymphocytes (CBC) 1.2 K/uL (0.7-4.9); Basophils % 1.1 % (0-1.3); Hematocrit 21.2 % (39.6-49.0); Lymphocytes % 18.3 % (15.3-44.8); MPV 8.8 fL (7.6-11.3); RBC Red Blood Cell Count 2.33 M/uL (4.33-5.43)
[2020-04-21] MEDS ORDERED: NA CHLORIDE 0.9% 250 ML ONE ×2 (05:40→22:35)
[2020-04-21] MEDS ORDERED: PANTOPRAZOLE 40 MG INJ ONE ×2 (05:40→22:34)
[2020-04-21] MEDS: DIPHENHYDRAMINE 50 MG/ML VIAL IV PRN (05:47)
[2020-04-21 05:54] LABS: Potassium 4.1 mmol/L (3.5-5.1)
[2020-04-21] MEDS ORDERED: DIPHENHYDRAMINE 50 MG/ML VIAL ONE (05:56)
[2020-04-21] MEDS: D50W 25 GM/50 ML SYRINGE/VIAL IV PRN ×2 (06:05→09:30)
[2020-04-21] MEDS ORDERED: D50W 25 GM/50 ML SYRINGE/VIAL IV ONE ×2 (06:11→09:33)
[2020-04-21] MEDS ORDERED: PANTOPRAZOLE 40MG TABLET PO SCH (07:30)
[2020-04-21] MEDS: INSULIN -REGULAR HUMAN 50 UNIT/0.5 ML ML SQ SCH ×4 (07:30→21:00)
[2020-04-21] MEDS ORDERED: PANTOPRAZOLE INJ 80 MG in D5W 250 ML IV SCH (10:00)
[2020-04-21] MEDS ORDERED: propofoL 200 MG/20 ML VIAL IV ONE (10:03)
[2020-04-21] MEDS ORDERED: LIDOCAINE 1% MPF 5 ML VIAL ONE ×2 (10:03→10:05)
[2020-04-21] MEDS ORDERED: EPINEPHRINE/PF 1 MG/ML AMP ONE (10:28)
--- NOTE | 2020-04-21 11:05 | EKG ---
Test Date: 2020-04-20 Test Time: 08:17:19 Flarer: STEPH MEASUREMENT RESULTS: Intervals: Rate: 90 SC: 148 QRSD: 86 QT: 386 QTc: 472 [place]: P: 65 SC: 148 QRS: 61 T: 37 INTERPRETIVE STATEMENTS: Normal sinus rhythm Possible Anterior infarct, age undetermined Abnormal ECG Compared to ECG 04/20/2020 05:39:22 Myocardial infarct finding now present Electronically Signed On 04-21-20 11:02:11 CDT by Marino Parson
[2020-04-21] MEDS ORDERED: Phenylephrine HCl 10 MG/ML 1 ML VIAL ONE (11:16)
[2020-04-21] MEDS ORDERED: NS 0.9% VIAL 10 ML ONE (11:17)
[2020-04-21] MEDS: PANTOPRAZOLE INJ 80 MG in D5W 250 ML IV SCH ×2 (12:10→22:00)
[2020-04-21] MEDS ORDERED: GLUCAGON 1 MG/VIAL IM PRN (16:07)
[2020-04-21] MEDS ORDERED: D50W 25 GM/50 ML SYRINGE/VIAL IV PRN (16:07)
--- NOTE | 2020-04-21 16:07 | P.PN ---
Subjective Date of Service: 04/21/20 Primary Care Provider: Ulysses Chief Complaint: Upper gi bleed Subjective: Improving (Hb staying stable after 2nd unit) Review of Systems 10-point ROS is otherwise unremarkable General: Weakness Gastrointestinal: Nausea Physical Examination - Vital Signs Temperature: 97.9 F Blood Pressure: 102/59 Pulse: 86 Respirations: 18 Pulse Ox (%): 100 - Physical Exam General: Alert, In no apparent distress HEENT: Atraumatic, PERRLA, EOMI Neck: Supple, JVD not distended Respiratory: Clear to auscultation bilaterally, Normal air movement Cardiovascular: Regular rate/rhythm, Normal S1 S2 Gastrointestinal: Normal bowel sounds, No tenderness Musculoskeletal: No tenderness Integumentary: No rashes Neurological: Normal speech, Normal tone, Normal affect Lymphatics: No axilla or inguinal lymphadenopathy Assessment & Plan - Problems (Diagnosis) (1) Upper GI bleed Current Visit: Yes Status: Acute Plan: Consult in with Dr. Beal. Will gently replace his volume. Has recieved 1 unit so far. Another will be given with dialysis. Will need to start protonix. D/c home Ibuprofen. 04/21 Patient had mulitple ulcer on egd per Dr. Beal. His hb is staying stable. Has started on clear liquid diet We can transfer him out of an icu bed to a monitored bed. (2) ESRD (end stage renal disease) Current Visit: Yes Status: Acute Plan: Have spoken to Dr. Goldsmith. Will give a slow dialysis today and tomorrow to decrease the elevated BUN. (3) HTN (hypertension) Current Visit: Yes Status: Acute Plan: currently low blood pressure. Will hold his meds untill after his blood counts have been normalized. Normally he is just on amlodipine 5mg po qday. Qualifiers: Hypertension type: essential hypertension Qualified Code(s): I10 - Essential (primary) hypertension (4) Hyperlipidemia Current Visit: Yes Status: Acute Plan: Is stable on atorvastatin 20mg po qday Qualifiers: Hyperlipidemia type: moderate mixed hyperlipidemia not requiring statin therapy Qualified Code(s): E78.2 - Mixed hyperlipidemia (5) DM2 (diabetes mellitus, type 2) Current Visit: Yes Status: Acute Plan: Patient is elevated sugars. He has takes levemir 15 units sq at home. Will start a low dose sliding scale on the patient as well. 04/21/ he had some hypoglycemia today. Was npo for the EGd. Is getting the hypoglycemia protochol. Will recheck his sugars before giving him his regular insulin Qualifiers: Diabetes mellitus termination clerk insulin use: with termination clerk use Diabetes mellitus complication detail: with polyneuropathy Discharge Plan: Home Plan to discharge in: 48 Hours - Code Status/Comfort Care Code Status Assessed: No Physician Review: Patient Assessed, Agree with Above Assessment and Plan Critical Care: No Time Spent Managing Pts Care (In Minutes): 25
[2020-04-21 17:40] LABS: Hematocrit 21.1 % (39.6-49.0)
[2020-04-21] MEDS: INSULIN GLARGINE 100 UNITS/ML SQ SCH (21:00)
[2020-04-21] MEDS: ATORVASTATIN 20 MG TAB PO SCH (21:38)
[2020-04-21] MEDS ORDERED: PANTOPRAZOLE INJ 80 MG in NA CHLORIDE 0.9% 250 ML IV SCH (23:00)
--- NOTE | 2020-04-22 00:02 | OP ---
Surgeon: Alvin Beal MD Procedure Performed: Esophagogastroduodenoscopy. Indication For Procedure: Upper GI bleed, plan for anesthesia, and monitored anesthesia care. Complexity: High due to the patient's significant comorbidities plus possibility of therapeutic inte rvention. Technique: After obtaining informed consent from the patient explaining risks and complications ic h include, but not limited to bleeding, infection, perforation, and anesthesia complication, the rhett ent was placed in left lateral position and sedation was given. From then on, the scope was advanced to the mouth and carefully guided up to the second portion of the duodenum. After completion of exa mination, scope and equipment were withdrawn and procedure terminated in a safe manner. Findings: Esophagus: No gross lesion seen in the entire esophagus. Stomach: Moderate patchy erythema seen in the body and antrum. In the fundus, crated ulcer with pig mented material seen. There was no high-risk stigmata from the ulcer. In the antrum and body, multi ple linear ulcers with clean bases were also visualized. Antral and body biopsies taken. Duodenum: The bulb and second portion appeared normal. Complications: None. Tolerance To Anesthesia: Excellent. Postoperative Diagnoses: Multiple gastric ulcers, gastritis. Plan: 1.Await pathology results. 2.Can switch to oral PPI. 3.Full liquid diet. 4.Need followup endoscopy in 4-6 weeks time. US/MODL Voice ID: [id number] Report ID: [id number]
--- NOTE | 2020-04-22 01:51 | PN ---
Date of Progress Note: 04/21/2020 Chief Complaint: End-stage renal disease, severe hyperazotemia, metabolic acidosis. Subjective: The patient presented to the hospital because of generalized weakness. He was found to have severe anemia. He received blood transfusion. The patient apparently was taking ibuprofen for generalized pain. The patient has history of peptic ulcer disease. He is dialysis dependent and has been dialyzed on TTS schedule. Review of Systems: Denies chest pain or palpitation. Physical Examination: Lungs: Diminished breath sounds at bases. Heart: S1, S2. Extremities: No cyanosis. Laboratory Data: Hemoglobin 7.3, hematocrit 21.1, WBC 6.3, platelet count is 119,000. Sodium 137, p otassium 4.1, chloride 103, CO2 23, BUN 98, creatinine 5.71, calcium 8.2. BNP 13,942. Impression And Plan: 1.End-stage renal disease and hyperazotemia. The patient was scheduled to have dialysis today for m etabolic clearance and to control electrolytes. On arrival to the hospital, the patient was found to have metabolic acidosis, which was treated with dialysis. Continue to re-evaluate renal panel and p scot dialysis accordingly. 2.Anemia. Continue MARIKA for anemia due to chronic kidney disease. The patient received blood transfusion. The patient is undergoing workup for acute anemia. ALVA/MODL Voice ID: [id number] Report ID: [id number]
[2020-04-22 05:06] LABS: Absolute Lymphocytes (CBC) 0.9 K/uL (0.7-4.9); Basophils % 1.2 % (0-1.3); MPV 8.7 fL (7.6-11.3); RBC Red Blood Cell Count 2.16 M/uL (4.33-5.43)
[2020-04-22 05:08] LABS: Hematocrit 20.5 % (39.6-49.0)
[2020-04-22 06:14] LABS: Potassium 4.3 mmol/L (3.5-5.1)
[2020-04-22] MEDS ORDERED: D50W 25 GM/50 ML SYRINGE/VIAL IV PRN (09:00)
[2020-04-22] MEDS ORDERED: GLUCAGON 1 MG/VIAL IM PRN (09:00)
[2020-04-22] MEDS: INSULIN GLARGINE 100 UNITS/ML SQ ONE (09:49)
[2020-04-22] MEDS: INSULIN -REGULAR HUMAN 50 UNIT/0.5 ML ML SQ SCH ×4 (09:50→21:00)
--- NOTE | 2020-04-22 10:50 | P.PN ---
Subjective Date of Service: 04/22/20 Primary Care Provider: Ulysses Chief Complaint: Upper gi bleed Subjective: New changes (hb dropped to 6.9) Review of Systems 10-point ROS is otherwise unremarkable Physical Examination - Vital Signs Temperature: 96.9 F Blood Pressure: 172/75 Pulse: 89 Respirations: 16 Pulse Ox (%): 96 - Physical Exam General: Alert, In no apparent distress HEENT: Atraumatic, PERRLA, EOMI Neck: Supple, JVD not distended Respiratory: Clear to auscultation bilaterally, Normal air movement Cardiovascular: Regular rate/rhythm, Normal S1 S2 Gastrointestinal: Normal bowel sounds, No tenderness Musculoskeletal: No tenderness Integumentary: No rashes Neurological: Normal speech, Normal tone, Normal affect Lymphatics: No axilla or inguinal lymphadenopathy Assessment & Plan - Problems (Diagnosis) (1) Upper GI bleed Current Visit: Yes Status: Acute Plan: Consult in with Dr. Beal. Will gently replace his volume. Has recieved 1 unit so far. Another will be given with dialysis. Will need to start protonix. D/c home Ibuprofen. 04/21 Patient had mulitple ulcer on egd per Dr. Beal. His hb is staying stable. Has started on clear liquid diet We can transfer him out of an icu bed to a monitored bed. 04/22. Will transfuse 1 unit today and 1 unit tomorrow with dialysis. Will get pt to ambulate the patient. He has not been out of bed much since his admission. (2) ESRD (end stage renal disease) Current Visit: Yes Status: Acute Plan: Have spoken to Dr. Goldsmith. Will give a slow dialysis today and tomorrow to decrease the elevated BUN. (3) HTN (hypertension) Current Visit: Yes Status: Acute Plan: currently low blood pressure. Will hold his meds untill after his blood counts have been normalized. Normally he is just on amlodipine 5mg po qday. Qualifiers: Hypertension type: essential hypertension Qualified Code(s): I10 - Essential (primary) hypertension (4) Hyperlipidemia Current Visit: Yes Status: Acute Plan: Is stable on atorvastatin 20mg po qday Qualifiers: Hyperlipidemia type: moderate mixed hyperlipidemia not requiring statin therapy Qualified Code(s): E78.2 - Mixed hyperlipidemia (5) DM2 (diabetes mellitus, type 2) Current Visit: Yes Status: Acute Plan: Patient is elevated sugars. He has takes levemir 15 units sq at home. Will start a low dose sliding scale on the patient as well. 8/5 not well controlled. Will restart 2/3 of his home insulin dosage. He also has the sliding scale coverage Qualifiers: Diabetes mellitus superintendent terminal insulin use: with superintendent terminal use Diabetes mellitus complication detail: with polyneuropathy Discharge Plan: Home Plan to discharge in: 24 Hours - Code Status/Comfort Care Code Status Assessed: No Physician Review: Patient Assessed, Agree with Above Assessment and Plan Critical Care: No Time Spent Managing Pts Care (In Minutes): 20
[2020-04-22] MEDS ORDERED: NA CHLORIDE 0.9% 250 ML ONE (12:06)
[2020-04-22] MEDS ORDERED: PROMETHAZINE 25 MG TABLET PO PRN (15:33)
[2020-04-22] MEDS: AMLODIPINE 5 MG TAB PO SCH (16:00)
[2020-04-22] MEDS: DIPHENHYDRAMINE 50 MG/ML VIAL IV PRN (16:06)
[2020-04-22] MEDS: PANTOPRAZOLE 40MG TABLET PO SCH (16:09)
--- NOTE | 2020-04-22 16:09 | PN ---
Date of Progress Note: 04/22/2020 Subjective: The patient was admitted with gastrointestinal bleed. Patient is still complaining of f acial swelling. Objective: General: When I saw the patient, facial swelling, both eyes. Vital Signs: Blood pressure 170/75, pulse of 80, afebrile. Patient had dialysis yesterday, tolerate d the dialysis very well. No incident. Managed to remove 500. Chest: Clear to auscultation. Heart: S1, S2. Systolic murmur. Abdomen: Soft, nontender. Extremities: Swelling on the upper extremity. Neuro: Alert and oriented x3. No focal. Lab Data: WBC 4.5, H and H 6.9/20.5, platelets 104. Sodium 131, potassium 4.3, bicarb 24, BUN 44, c reatinine 4.3, blood sugar 527, calcium 7.4. Current Medications: The patient on include, 1.Epogen. 2.Atorvastatin. 3.Tylenol. 4.Mannitol. Assessment And Plan: 1.End-stage renal disease. We will continue the patient on dialysis. I going to arrange for anothe r session of dialysis tomorrow. 2.Hypertension, not controlled. We will try to challenge the patient tomorrow. 3.Anemia secondary to GI bleed, chronic kidney disease. We will transfuse 1 unit tomorrow. Continu e MARIKA. 4.Hypertension, not controlled. We will start the patient on lisinopril and we will follow up. 5.Diabetes, as by primary. 6.Gastrointestinal bleed. We will follow up with GI and Primary. JEAN MARIE/LUBA Voice ID: [id number] Report ID: [id number]
[2020-04-22 20:33] LABS: Hematocrit 25.1 % (39.6-49.0)
[2020-04-22] MEDS: INSULIN GLARGINE 100 UNITS/ML SQ SCH (21:00)
[2020-04-22] MEDS: ATORVASTATIN 20 MG TAB PO SCH (21:21)
[2020-04-23 06:33] LABS: Basophils % 1.4 % (0-1.3)
[2020-04-23 06:39] LABS: Absolute Lymphocytes (CBC) 1.2 K/uL (0.7-4.9); Hematocrit 22.8 % (39.6-49.0); Lymphocytes % 20.6 % (15.3-44.8); RBC Red Blood Cell Count 2.48 M/uL (4.33-5.43)
[2020-04-23 06:44] LABS: Potassium 4.6 mmol/L (3.5-5.1)
[2020-04-23] MEDS: INSULIN -REGULAR HUMAN 50 UNIT/0.5 ML ML SQ SCH ×4 (07:30→22:25)
[2020-04-23] MEDS: INSULIN GLARGINE 100 UNITS/ML SQ ONE (09:00)
[2020-04-23] MEDS ORDERED: lisinopriL 10 MG TAB PO SCH (09:00)
--- NOTE | 2020-04-23 09:13 | P.PN ---
Subjective Date of Service: 04/23/20 Primary Care Provider: Ulysses Chief Complaint: Upper gi bleed Subjective: Improving (hb is 8 units.) Review of Systems patient had a bowel movt this morning Physical Examination - Vital Signs Temperature: 97.0 F Blood Pressure: 150/81 Pulse: 80 Respirations: 14 Pulse Ox (%): 99 Assessment & Plan - Problems (Diagnosis) (1) Upper GI bleed Current Visit: Yes Status: Acute Plan: Consult in with Dr. Beal. Will gently replace his volume. Has recieved 1 unit so far. Another will be given with dialysis. Will need to start protonix. D/c home Ibuprofen. 04/23 Will advance his diet to soft renal diet. Will discuss with Dr. Goldsmith if he needs another unit. The patient may need to stay till tomorrow. I am worried that his hb may drop after discharge or during dialysis. May keep him then and give the unit (2) ESRD (end stage renal disease) Current Visit: Yes Status: Acute Plan: Have spoken to Dr. Goldsmith. Will give a slow dialysis today and tomorrow to decrease the elevated BUN. (3) HTN (hypertension) Current Visit: Yes Status: Acute Plan: currently low blood pressure. Will hold his meds untill after his blood counts have been normalized. Normally he is just on amlodipine 5mg po qday. Qualifiers: Hypertension type: essential hypertension Qualified Code(s): I10 - Essential (primary) hypertension (4) Hyperlipidemia Current Visit: Yes Status: Acute Plan: Is stable on atorvastatin 20mg po qday Qualifiers: Hyperlipidemia type: moderate mixed hyperlipidemia not requiring statin therapy Qualified Code(s): E78.2 - Mixed hyperlipidemia (5) DM2 (diabetes mellitus, type 2) Current Visit: Yes Status: Acute Plan: Patient is elevated sugars. He has takes levemir 15 units sq at home. Will start a low dose sliding scale on the patient as well. 04/23 Will keep him on 10 units of lantus. As he is not on a full diet. The sugars are much better today. Qualifiers: Diabetes mellitus terminal block assembler insulin use: with terminal block assembler use Diabetes mellitus complication detail: with polyneuropathy Discharge Plan: Home Plan to discharge in: 24 Hours - Code Status/Comfort Care Code Status Assessed: No Physician Review: Patient Assessed, Agree with Above Assessment and Plan Critical Care: No Time Spent Managing Pts Care (In Minutes): 20
[2020-04-23] MEDS: PANTOPRAZOLE 40MG TABLET PO SCH ×2 (09:26→16:30)
[2020-04-23] MEDS: AMLODIPINE 5 MG TAB PO SCH (09:26)
--- NOTE | 2020-04-23 18:01 | PN ---
Date of Progress Note: 04/23/2020 Subjective: The patient came to the hospital with gastrointestinal bleed. Plan for workup. The pat ient's hemoglobin stabilized. Objective: Vital Signs: When I saw the patient, blood pressure 150/81, pulse of 80. Head and Neck: Swelling on the face. Chest: Clear to auscultation. Heart: S1, S2. Regular. Abdomen: Soft, nontender. Extremities: Swelling on the upper extremity. No edema on the lower. Laboratory Data: WBC 6, H and H 8/22.8, platelet 112. Sodium 133, potassium 4.6, bicarb 23, BUN 50, creatinine 6, calcium 7.2. Current Medication: Include heparin, Epogen, amlodipine 5 mg daily, atorvastatin, Tylenol. Assessment And Plan: 1.End-stage renal disease. We will continue the patient on dialysis TTS. 2.Secondary hyperparathyroidism. Continue with current binder. 3.Facial swelling. Workup as outpatient has been done. No central stenosis. We will follow up wit h Vascular. 4.Hypertension. We will follow up blood pressure after dialysis. We will challenge the patient. 5.Over volume. We will try to challenge the patient. 6.Hyponatremia, going to be corrected with dialysis. 7.Anemia secondary to gastrointestinal loss and chronic kidney disease. Continue MARIKA. Follow up [facility]. 8.Diabetes as by primary. Patient cleared from the renal standpoint for discharge planning after ruth johnston. MUKESH Voice ID: [id number] Report ID: [id number]
[2020-04-23] MEDS: INSULIN GLARGINE 100 UNITS/ML SQ SCH (22:27)
[2020-04-23] MEDS: ATORVASTATIN 20 MG TAB PO SCH (22:28)
[2020-04-24 06:32] LABS: Potassium 4.8 mmol/L (3.5-5.1)
[2020-04-24] MEDS: AMLODIPINE 5 MG TAB PO SCH (08:46)
[2020-04-24] MEDS: PANTOPRAZOLE 40MG TABLET PO SCH (08:46)
[2020-04-24] MEDS: INSULIN -REGULAR HUMAN 50 UNIT/0.5 ML ML SQ SCH (08:47)
[2020-04-24 08:57] VITALS: TEMP 96.5
[2020-04-24 09:31] VITALS: O2SAT 100
[2020-04-24] MEDS ORDERED: HYDRALAZINE HCL 20 MG/ML VIAL IV PRN (09:54)
--- NOTE | 2020-04-24 09:58 | P.DS ---
Admission Date: 04/20/20 Discharge Date: 04/24/20 Primary Care Provider: Ulysses Disposition: ROUTINE DISCHARGE Discharge Condition: GOOD Reason for Admission: Upper gi bleed - Problems (1) Upper GI bleed Current Visit: Yes Status: Acute (2) ESRD (end stage renal disease) Current Visit: Yes Status: Acute (3) HTN (hypertension) Current Visit: Yes Status: Acute Qualifiers: Hypertension type: essential hypertension Qualified Code(s): I10 - Essential (primary) hypertension (4) Hyperlipidemia Current Visit: Yes Status: Acute Qualifiers: Hyperlipidemia type: moderate mixed hyperlipidemia not requiring statin therapy Qualified Code(s): E78.2 - Mixed hyperlipidemia (5) DM2 (diabetes mellitus, type 2) Current Visit: Yes Status: Acute Qualifiers: Diabetes mellitus senior living insulin use: with senior living use Diabetes mellitus complication detail: with polyneuropathy Brief History of Present Illness: Patient is an office patient of [employer] with a past medical history of diabetes with polyneuropathy. ESRD, HTN, hyperlipidemia. He has been having nausea and vomitting for the last 2 days. With blood in his vomit. He has also noted some in his stools. This brought him to the ER. The patient has been taking ibuprofen for pain which was perscribed. He has not had a history of PUD in the past. He has been compliant with his dialysis. Normal gets dialysis On . He did have his dialysis on Monday. Hospital Course: Patient was admitted. Had multiple ulcer. Recieved 4units prbc. Dialysis was done with Dr. Cordoba. The patient is doing well this morning, working with PT. The patient was warned not to use ibuprofen anymore. Will treat his arthritis with Acetaminophen. Will have him follow up with Me and Dr. Cordoba Vital Signs/Physical Exam: Temp Pulse Resp BP Pulse Ox 96.5 F L 88 20 217/98 H 97 04/24/20 08:00 04/24/20 08:46 04/24/20 08:00 04/24/20 08:46 04/24/20 08:00 General: Alert, In no apparent distress HEENT: Atraumatic, PERRLA, EOMI Neck: Supple, JVD not distended Respiratory: Clear to auscultation bilaterally, Normal air movement Cardiovascular: Regular rate/rhythm, Normal S1 S2 Gastrointestinal: Normal bowel sounds, No tenderness Musculoskeletal: No tenderness Integumentary: No rashes Neurological: Normal speech, Normal tone, Normal affect Lymphatics: No axilla or inguinal lymphadenopathy Laboratory Data at Discharge: WBC 6.0 K/uL (4.3-10.9) D 04/23/20 06:20 Hgb 8.0 g/dL (13.6-17.9) L 04/23/20 06:20 Hct 22.8 % (39.6-49.0) L 04/23/20 06:20 Plt Count 112 K/uL (152-406) L 04/23/20 06:20 Sodium 137 mmol/L (136-145) 04/24/20 05:41 Potassium 4.8 mmol/L (3.5-5.1) 04/24/20 05:41 BUN 24 mg/dL (7-18) H D 04/24/20 05:41 Creatinine 4.38 mg/dL (0.55-1.3) H D 04/24/20 05:41 Glucose 277 mg/dL (74-106) H 04/24/20 05:41 Total Bilirubin 0.3 mg/dL (0.2-1.0) 04/20/20 06:03 AST 14 U/L (15-37) L 04/20/20 06:03 ALT 27 U/L (12-78) 04/20/20 06:03 Alkaline Phosphatase 61 U/L (45-117) 04/20/20 06:03 Lipase 62 U/L (73-393) L 04/20/20 06:03 Home Medications: Atorvastatin Calcium [Lipitor] 20 mg PO BEDTIME 04/21/20 Insulin Degludec [Tresiba Flextouch U-100] 12 unit SQ DAILY 04/21/20 Sevelamer Carbonate [Renvela] 800 mg PO TIDWM 04/21/20 Pantoprazole [Protonix Tab*] 40 mg PO BIDAC 90 Days #180 tab 04/24/20 New Medications: Pantoprazole [Protonix Tab*] 40 mg PO BIDAC 90 Days #180 tab Diet: Renal Activity: Ad juan Followup: Maggie Shah MD [ACTIVE - CAN ADMIT] - 1-2 Days Suraj Arora MD [Primary Care Provider] - (05/02) Time spent managing pt's care (in minutes): 30
[2020-04-24 12:21] VITALS: BP 140/90
--- NOTE | 2020-04-25 02:23 | PN ---
Date of Progress Note: 04/24/2020 Chief Complaint: End-stage renal disease, on dialysis. Subjective: The patient has been dialyzed on TTS schedule. The patient came to the hospital because of GI bleeding and weakness. Review of Systems: Denies PND or orthopnea. Physical Examination: Lungs: Clear to auscultation bilaterally. Heart: S1, S2. Abdomen: Soft, benign. Extremities: Swelling in the upper extremity. Impression And Plan: 1.End-stage renal disease. Next dialysis tomorrow. 2.Secondary hyperparathyroidism. Continue current binders. 3.Facial swelling. The patient had outpatient workup to rule out central stenosis. The patient yasmani l follow up with vascular team. 4.Hypertension. Continue blood pressure medication. 5.Hyponatremia secondary to volume overload, dilutional hyponatremia, asymptomatic. The patient yasmani smith continue p.o. fluid restriction. 6.Diabetes mellitus. Continue insulin. EB/MODL Voice ID: [id number] Report ID: [id number]
== END 2020-04-24 12:41 | disposition home or self-care (01) | DRG 377 ==
LOC: ER 05:14 → SUPCPDRO 05:14 → ERHOLD 08:43 → MERGE 08:43 → 2ND 04-21 20:16
PROVIDERS: ADMIT Internal Medicine; ATTEND Internal Medicine
PROC: 30233N1 Transfusion of Nonautologous Red Blood Cells into Peripheral Vein, Percutaneous Approach (ICD-10-PCS; 2020-04-20)
PROC: 5A1D70Z Performance of Urinary Filtration, Intermittent, Less than 6 Hours Per Day (ICD-10-PCS; 2020-04-21)
PROC: 0DJ08ZZ Inspection of Upper Intestinal Tract, Via Natural or Artificial Opening Endoscopic (ICD-10-PCS; principal; 2020-04-21 10:30)
DX: K25.4 Chronic or unspecified gastric ulcer with hemorrhage (principal); N18.6 End stage renal disease; I12.0 Hypertensive chronic kidney disease with stage 5 chronic kidney disease or end stage renal disease; E87.2 Acidosis; N25.81 Secondary hyperparathyroidism of renal origin; E87.1 Hypo-osmolality and hyponatremia; K29.71 Gastritis, unspecified, with bleeding; E11.42 Type 2 diabetes mellitus with diabetic polyneuropathy; E11.649 Type 2 diabetes mellitus with hypoglycemia without coma; E87.5 Hyperkalemia; D63.1 Anemia in chronic kidney disease; M19.90 Unspecified osteoarthritis, unspecified site; E78.2 Mixed hyperlipidemia; E11.22 Type 2 diabetes mellitus with diabetic chronic kidney disease; Z99.2 Dependence on renal dialysis; Z88.0 Allergy status to penicillin; Z88.8 Allergy status to other drugs, medicaments and biological substances; Z11.59 Encounter for screening for other viral diseases; Z91.19 Patient's noncompliance with other medical treatment and regimen
CPT/HCPCS: 36415; 36430; 71045; 80048; 80076; 82947; 83690; 83880; 85014; 85018; 85025; 86850; 86900; 86901; 86922; 88305; 88312; 90935; 93005; 96365; 96372; 96375; 97116; 97161; 97530; 99285; C9113; J0171; J0610; J1200; J1644; J1815; J2150; J2370; J2405; J2704; J7030; J7050; J7060; P9016; Q5105

== ENCOUNTER 2021-01-07 07:16 | Inpatient (IN) | payer BC ==
--- OUTSIDE RECORDS SUMMARY | 2021-01-07 07:20 | XMS REPORT | Continuity of Care Document ---
:1975 Author Organization [facility] t Address [address] [place] [address] Dr. Lucas. [address] [place] [address] Care Team Providers Name Role Phone Sharpless Primary Care Physician Unavailable Doctor Unassigned, Aguilar Attending Clinician Unavailable Guero Torres MD Attending Clinician Scot DALTON Attending Clinician Singer RICHARD Attending Clinician Rolando DALTON Attending Clinician Denis DALTON Attending Clinician Keith DALTON Attending Clinician Paulo Martin DO Attending Clinician Tasneem MORENO Attending Clinician Amandeep Jara MD Attending Clinician [phone] LUCRECIA RENEE Attending Clinician Unavailable Scot DALTON Admitting Clinician Rolando DALTON Admitting Clinician Keith DALTON Admitting Clinician Tasneem MORENO Admitting Clinician Amandeep Jara MD Admitting Clinician [phone] LUCRECIA RENEE Admitting Clinician Unavailable Problems Condition Condition Condition [...] kes - on on 00:00: Medical 00 [place] DKA DKA Disease Active [facility] (diabetic [...] Allergy 3-17 [facility]: Medical 00 [place] Social History Social Habit Start Date Stop Date Quantity Comments Source Sex Assigned At [facility] Smoking Status Start Date Stop Date Source Never smoker [facility] edical [place] Medications Ordered Filled Start Stop Current Ordering Indication Dosage Frequency Signature Comments Components Source Medication Medication Date Date Medication? Clinician (SIG) Name Name amLODIPine Yes 10mg QD Take [address] (NORVASC) 3-23 by mouth [facility] - 10 MG 19:11: daily. Medical tablet [address] [place] [address] aspirin 81 Yes 81mg QD Take [address] MG chewable 3-23 by mouth [facility] - tablet 19:11: daily. [address] calcium Yes 1{tbl} Q.[id number] Take [address] [facility] carbonate 3-23 [id number] tablet by [facility] - (TUMS) 500 19:11: 3D mouth 3 Medi maddie mg chewable 22 (three) Cente r tablet times daily. doxazosin Yes 2mg QD Take [address] [facility] (CARDURA) 2 3-23 by mouth Luke s - MG tablet 19:11: nightly. Medi maddie 22 Center famotidine Yes 20mg Q.5D Take [address] (PEPCID) 20 3-23 by mouth 2 Radha kes - MG tablet 19:11: (two) Medical 22 times Center daily. meclizine 2017 Yes 25mg QD Take [address] (ANTIVERT) 3-23 by mouth [facility] - 25 MG 19:11: daily. Medical tablet 22 Center nitroglycer Yes .4mg Place 0.[address] in 3-23 mg under [facility] - (NITROSTAT) 19:11: the tongue Medical 0.4 MG SL 22 every 5 Center tablet (five) minutes as needed for Chest pain Put 1 pill under tongue every 5min as needed for chest pain.No more than 3 doses in 15min.Call 911 if pain is unrelieved 5min after 1st dose . ondansetron Yes 4mg Take [address] (ZOFRAN) 4 3-23 by mouth 3 John es - MG tablet 19:11: (three) Medic al 22 times Center daily as needed for Nausea. b complex Yes 1{tbl} QD Take [address] [facility] vitamins 3-23 tablet by [facility] - tablet 19:11: mouth Medical 22 daily. Center Immunizations Ordered Immunization Filled Immunization Date Status Commen ts Source Name Name Influenza Three-TIV 2016-12-03 [facility] 5[facility] Procedures This patient has no known procedures. Encounters Start End Encounter Admission Attending Care Care Encounter Source Date/Time Date/Time Type Type Clinicians Facility Department ID 2020-10-08 2020-10-08 Orders Doctor ALVAREZ [id number] [id number] 00:00:00 00:00:00 Only Unassigned, TISHA [id number] Aguilar [facility] 4.2.7.2.686 [id number] 2019-10-02 2019-10-02 Orders Doctor ANTONIO 1.2.840.114 [id number] 00:00:00 00:00:00 Only Unassigned, TISHA [id number] Aguilar [facility] 4.2.7.2.686 [id number] [id number] 2019-06-05 2019-06-06 Emergency Nancy Torres [facility] 1.2.840 .114 [id number] 07:59:43 14:59:00 Mak Ellison [id number] [place] 4.2.7.2.686 [place] [address] [id number] 2019-06-01 2019-06-01 Emergency Luca Jackson [facility] 1.2.840. 114 [id number] 06:56:22 17:52:00 Jesus Marshall [id number] [place] 4.2.7.2.686 [place] [address] [id number] 2019-05-28 2019-05-28 Emergency Andrey Barrios [facility] 1.2.840. 114 [id number] 07:49:46 20:40:00 Jesus Marshall [id number] [place] 4.2.7.2.686 [place] [address] [id number] 2019-05-24 2019-05-24 Emergency Andrey Barrios [facility] 1.2.840. 114 [id number] 07:36:09 16:15:00 James Parker [id number] [place] 4.2.7.2.686 [place] [address] [id number] 1 2019-05-20 2019-05-20 Emergency Flower Martin [facility] 1.2.8 40.114 [id number] 07:34:17 19:50:00 James Parker [id number] [place] [id number] [place] [address] [id number] 2019-05-15 2019-05-15 Emergency Luca Jackson [facility] 1.2.840. 114 [id number] 07:17:11 18:48:00 Jesus Marshall [id number] [place] 4.2.7.2.686 [place] [address] [id number] 2019-05-09 2019-05-11 Emergency Nancy Torres [facility] 1.2.840 .114 [id number] 07:23:22 15:03:00 Jesus Marshall [id number] [place] 4.2.7.2.686 [place] [address] [id number] [facility] 2019-05-07 2019-05-07 Emergency Denis [facility] [id number] 06:36:08 08:19:00 Andrey Castrejon 350.1.13.10 [place] 4.2.7.2.686 [place] [address] [id number] [facility] 2019-05-03 2019-05-03 Emergency Andrey Barrios [facility] 1.2.840. 114 [id number] 07:04:51 19:40:00 Caleb Boateng [id number] [place] [id number] [place] [address] [id number] [facility] 2019-04-29 2019-04-29 Emergency Nancy Torres [facility] 1.2.840 .114 [id number] 06:03:54 16:18:00 Luly Jara [id number] [place] 4.2.7.2.686 [place] [address] [id number] [facility] 2019-04-24 2019-04-24 Emergency Flower Martin Paulo [facility] 1.2.8 40.114 [id number] 07:32:53 17:15:00 Mak Ellison [id number] [place] [id number] [place] [address] [id number] [facility] 2019-04-20 2019-04-20 Emergency Andrey Barrios [facility] 1.2.840. 114 [id number] 07:35:56 21:13:00 Mak Ellison 350.1.13.10 [place] 4.2.7.2.686 [place] [address] [id number] [facility] 2019-04-15 2019-04-15 Emergency Andrey Barrios [facility] 1.2.840. 114 [id number] 06:12:02 17:50:00 Movva, Caleb Amarillo 350.1.13.10 [place] 4.2.7.2.686 [place] [id number] 081 Results Test Description Test Time Test Comments Results Result Comments Source BLOOD CULTURE 2016-12-09 11:00:00 Test Item Value Reference Range Interpretation Comme nts CULTURE (ANTONIO) (test code = 1095) No growth in 5 days BLOOD [id number] 11:00:00 Test Item Value Reference Range Interpretation Comments CULTURE ([facility]) (test No growth in 5 days code = 1095) ISLET CELL AB [id number] 09:29:00 Test Item Value Reference Range Interpretation Comments ISLET CELL AB See individual AUTOVERIFICATION (test panel test results. code = 2556) POCT-GLUCOSE [id number] 17:52:00 Test Item Value Reference Range Interpretation Comments POC-GLUCOSE METER 360 mg/dL 70-110 H TESTED AT [place] [address] ([facility]) (test code = [facility] 1538) [address]166 CLOSTRIDIUM DIFFICILE TOXIN [id number] 14:10:00 Test Item Value Reference Range Interpretation Comments CLOSTRIDIUM DIFFICILE TOXIN, PCR Not Detected Not Detected ([facility]) (test code = 1525) This qualitative real-time [...] of a positive result is not recommended.POCT-GLUCOSE [id number] 13:02:00 Test Item Value Reference Range Interpretation Comments POC-GLUCOSE METER 265 mg/dL 70-110 H TESTED AT [facility] 6720 ([employer]) (test code = [facility] 1538) [address] POCT-GLUCOSE [id number] 07:13:00 Test Item Value Reference Range Interpretation Comments POC-GLUCOSE METER 70 mg/dL 70-110 TESTED AT [place] [id number] ([facility]) (test code = HAL Mai [facility] [address] 1538) VANCOMYCIN LEVEL, [id number] 06:54:00 Test Item Value Reference Range Interpretation Comments VANCOMYCIN RANDOM (BEAKER) (test 15.2 ug/mL code = 523) Reference Range: No NormalsBASIC METABOLIC [id number] 06:41:00 Test Item Value Reference Range Interpretation [...] NOT APPLICABLE FOR DIALYSIS PATIEN TS. POCT-GLUCOSE [id number] 06:40:00 Test Item Value Reference Range Interpretation Comments POC-GLUCOSE METER 44 mg/dL 70-110 L Notified R Manny DALTON/[facility]ED AT [facility] (test code = [place] [address] MIGUEL 1538) [facility] 7703 0 POCT-GLUCOSE [id number] 06:36:00 Test Item Value Reference Range Interpretation Comments POC-GLUCOSE METER 54 mg/dL 70-110 L Notified R Manny DALTON/TESTED AT ([facility]) (test code = [place] [address] MIGUEL 1538) [facility] 7703 0 BASIC METABOLIC [id number] 06:35:00 Test Item Value Reference Range Interpretation [...] NOT APPLICABLE FOR DIALYSIS PATIEN TS. POCT-GLUCOSE [id number] 21:14:00 Test Item Value Reference Range Interpretation Comments POC-GLUCOSE METER 396 mg/dL 70-110 H Notified R Manny DALTON/TESTED (BEAKER) (test code = AT [facility] [address] [place] [address]) [facility] 7703 0 POCT-GLUCOSE [id number] 18:02:00 Test Item Value Reference Range Interpretation Comments POC-GLUCOSE METER 363 mg/dL 70-110 H Notified R Manny DALTON/TESTED (BEAKER) (test code = AT [facility] [address] [place] [address]) [facility] 7703 0 BLOOD [id number] 18:00:00 Test Item Value Reference Range Interpretation Comments CULTURE (BEAKER) (test No growth in 5 days code = 1095) BLOOD [id number] 18:00:00 Test Item Value Reference Range Interpretation Comments CULTURE (BEAKER) (test No growth in 5 days code = 1095) POCT-GLUCOSE [id number] 13:08:00 Test Item Value Reference Range Interpretation Comments POC-GLUCOSE METER 188 mg/dL 70-110 H TESTED AT [facility] 6720 (BEAKER) (test code = [place] [address]) [address] POCT-GLUCOSE [id number] 11:42:00 Test Item Value Reference Range Interpretation Comments POC-GLUCOSE METER 194 mg/dL 70-110 H TESTED AT [facility] 6720 ([facility]) (test code = [place] 1538) [address] VANCOMYCIN LEVEL, [id number] 09:58:00 Test Item Value Reference Range Interpretation Comments VANCOMYCIN RANDOM (BEAKER) (test 12.9 ug/mL code = 523) Reference Range: No NormalsTo be drawn BEFORE dialysis in the dialysis unit. Thank youPOCT-GLUCOSE [id number] 08:52:00 Test Item Value Reference Range Interpretation Comments POC-GLUCOSE METER 272 mg/dL 70-110 H TESTED AT [place] [address] ([facility]) (test code = MAIDANH Pau [facility] 1538) [address] BASIC METABOLIC [id number] 05:09:00 Test Item Value Reference Range Interpretation [...] NOT APPLICABLE FOR DIALYSIS PATIEN TS. POCT-GLUCOSE [id number] 21:32:00 Test Item Value Reference Range Interpretation Comments POC-GLUCOSE METER 388 mg/dL 70-110 H TESTED AT [facility] [address] [facility] (test code = [place] 1538) [address] POCT-GLUCOSE [id number] 18:31:00 Test Item Value Reference Range Interpretation Comments POC-GLUCOSE METER 247 mg/dL 70-110 H TESTED AT [facility] 6720 (BEAKER) (test code = [place] 1538) [address] POCT-GLUCOSE [id number] 10:58:00 Test Item Value Reference Range Interpretation Comments POC-GLUCOSE METER 213 mg/dL 70-110 H TESTED AT [facility] 6720 (BEAKER) (test code = [place] 1538) [address] CBC W/PLT COUNT & AUTO [id number] 07:02:00 Test Item Value Reference Range Interpretation [...] 0.00-0.20 (test code = 417) 0.00BASIC METABOLIC [id number] 06:25:00 Test Item Value Reference Range Interpretation [...] S NOT APPLICABLE FOR DIALYSIS PATIEN TS. [id number] 06:24:00 Test Item Value Reference Range Interpretation Comments PHOSPHORUS (BEAKER) (test code = 3.8 mg/dL 2.3-4.7 604) [id number] 06:24:00 Test Item Value Reference Range Interpretation Comments MAGNESIUM (BEAKER) (test code = 2.2 mg/dL 1.6-2.6 627) POCT-GLUCOSE [id number] 21:55:00 Test Item Value Reference Range Interpretation Comments POC-GLUCOSE METER 270 mg/dL 70-110 H TESTED AT [facility] 6720 (BEAKER) (test code = [facility] 1538) [address] POCT-GLUCOSE [id number] 18:12:00 Test Item Value Reference Range Interpretation Comments POC-GLUCOSE METER 124 mg/dL 70-110 H TESTED AT [place] [address] ([facility]) (test code = [facility] 1538) [address] POCT-GLUCOSE [id number] 16:27:00 Test Item Value Reference Range Interpretation Comments POC-GLUCOSE METER 135 mg/dL 70-110 H TESTED AT [place] [address] ([facility]) (test code = [facility] 1538) [address]74 POCT-GLUCOSE [id number] 14:10:00 Test Item Value Reference Range Interpretation Comments POC-GLUCOSE METER 219 mg/dL 70-110 H TESTED AT [place] [address] ([facility]) (test code = [facility] 1538) [address] POCT-GLUCOSE [id number] 12:01:00 Test Item Value Reference Range Interpretation Comments POC-GLUCOSE METER 162 mg/dL 70-110 H TESTED AT [place] [address] ([facility]) (test code = [facility] 1538) 12056 POCT-GLUCOSE [id number] 09:51:00 Test Item Value Reference Range Interpretation Comments POC-GLUCOSE METER 220 mg/dL 70-110 H TESTED AT [place] [address] ([facility]) (test code = [facility] 1538) [address] POCT-GLUCOSE [id number] 07:48:00 Test Item Value Reference Range Interpretation Comments POC-GLUCOSE METER 151 mg/dL 70-110 H TESTED AT [place] [address] ([facility]) (test code = [facility] 1538) [address] BASIC METABOLIC [id number] 07:36:00 Test Item Value Reference Range Interpretation [...] = 358) GLUCOSE RANDOM 93 mg/dL 70-105 ([facility]) (test code = 652) CALCIUM (BEAKER) 7.9 mg/dL 8.4-10.2 L (test code = 697) EGFR ([facility]) (test 7 mL/min/1.73 ESTIMAT ED GFR IS code = 1092) sq m NOT ACCURATE CREATININE CLEARANCE IN PREDICTING GLOMERULAR FILTRATION RATE . ESTIMATED GFR I S NOT APPLICABLE FOR DIALYSIS PATIEN TS. POCT-GLUCOSE [id number] 07:06:00 Test Item Value Reference Range Interpretation Comments POC-GLUCOSE METER 98 mg/dL 70-110 TESTED AT [place] [address] ([facility]) (test code = [facility] [address] 1538) POCT-GLUCOSE [id number] 06:27:00 Test Item Value Reference Range Interpretation Comments POC-GLUCOSE METER 63 mg/dL 70-110 L TESTED AT [place] [address] ([facility]) (test code = [facility] [address] 1538) VANCOMYCIN LEVEL, [id number] 04:31:00 Test Item Value Reference Range Interpretation Comments VANCOMYCIN RANDOM ([facility]) (test 20.8 ug/mL code = 523) Reference Range: No [id number] 04:20:00 Test Item Value Reference Range Interpretation Comments PHOSPHORUS (BEAKER) (test code = 5.4 mg/dL 2.3-4.7 H 604) [id number] 04:20:00 Test Item Value Reference Range Interpretation Comments MAGNESIUM (BEAKER) (test code = 2.1 mg/dL 1.6-2.6 627) POCT-GLUCOSE [id number] 04:16:00 Test Item Value Reference Range Interpretation Comments POC-GLUCOSE METER 99 mg/dL 70-110 TESTED AT [place] [address] ([facility]) (test code = [facility] [address] 1538) CBC W/PLT COUNT & AUTO [id number] 04:07:00 Test Item Value Reference Range Interpretation Comments WHITE BLOOD CELL COUNT ([facility]) 7.4 K/ L 4.0-10.0 (test code = [...] L 0.00-0.20 (test code = 417) 0.00POCT-GLUCOSE [id number] 02:10:00 Test Item Value Reference Range Interpretation Comments POC-GLUCOSE METER 132 mg/dL 70-110 H TESTED AT [facility] 6720 (BEAKER) (test code = [place] [facility] 1538) [address] SPUTUM CULTURE + GRAM [id number] 00:32:00 Test Item Value Reference Range Interpretation Comments CULTURE (BEAKER) 4+ Normal respiratory (test code = 1095) jenelle present GRAM STAIN RESULT 3+ White blood cells (BEAKER) (test code = seen 1123) GRAM STAIN RESULT 0-5 epithelial cells (BEAKER) (test code = 34332) GRAM STAIN RESULT 2+ gram negative rods (BEAKER) (test code = 66374) GRAM STAIN RESULT 3+ gram positive rods (BEAKER) (test code = 875634) GRAM STAIN RESULT 2+ gram positive cocci (BEAKER) (test code = in pairs and clusters 496475) POCT-GLUCOSE [id number] 00:15:00 Test Item Value Reference Range Interpretation Comments POC-GLUCOSE METER 193 mg/dL 70-110 H TESTED AT [place] [address] [facility] (test code = [place] [facility] 1538) [address] POCT-GLUCOSE [id number] 22:22:00 Test Item Value Reference Range Interpretation Comments POC-GLUCOSE METER 170 mg/dL 70-110 H TESTED AT [place] [address] ([facility] (test code = [facility] 1538) [address] POCT-GLUCOSE [id number] 20:17:00 Test Item Value Reference Range Interpretation Comments POC-GLUCOSE METER 179 mg/dL 70-110 H TESTED AT [place] [address] ([facility] (test code = [facility] 1538) [address] BASIC METABOLIC [id number] 19:00:00 Test Item Value Reference Range Interpretation [...] H (BEAKER) (test code = 652) CALCIUM ([facility]) 8.2 mg/dL 8.4-10.2 L (test code = 697) EGFR ([facility]) (test 8 mL/min/1.73 ESTIMAT ED GFR IS code = 1092) sq m NOT ACCURATE CREATININE CLEARANCE IN PREDICTING GLOMERULAR FILTRATION RATE . ESTIMATED GFR I S NOT APPLICABLE FOR DIALYSIS PATIEN TS. POCT-GLUCOSE [id number] 18:27:00 Test Item Value Reference Range Interpretation Comments POC-GLUCOSE METER 150 mg/dL 70-110 H TESTED AT [place] [address] ([facility]) (test code = [employer] [place] 1538) [address] POCT-GLUCOSE [id number] 15:58:00 Test Item Value Reference Range Interpretation Comments POC-GLUCOSE METER 219 mg/dL 70-110 H TESTED AT [place] [address] ([facility]) (test code = [employer] [place] 1538) [address] POCT-GLUCOSE [id number] 14:26:00 Test Item Value Reference Range Interpretation Comments POC-GLUCOSE METER 212 mg/dL 70-110 H TESTED AT [place] [address] ([facility]) (test code = [employer] [place] 1538) [address] POCT-GLUCOSE [id number] 12:23:00 Test Item Value Reference Range Interpretation Comments POC-GLUCOSE METER 261 mg/dL 70-110 H TESTED AT [place] [address] ([facility]) (test code = [employer] [place] 1538) [address] POCT-GLUCOSE [id number] 10:19:00 Test Item Value Reference Range Interpretation Comments POC-GLUCOSE METER 323 mg/dL 70-110 H TESTED AT [place] [address] ([facility]) (test code = [employer] [place] 1538) [address] POCT-GLUCOSE [id number] 08:24:00 Test Item Value Reference Range Interpretation Comments POC-GLUCOSE METER 235 mg/dL 70-110 H TESTED AT [place] [address] ([facility]) (test code = [employer] [place] 1538) [address] POCT-GLUCOSE [id number] 07:10:00 Test Item Value Reference Range Interpretation Comments POC-GLUCOSE METER 244 mg/dL 70-110 H TESTED AT [place] [address] ([facility]) (test code = [employer] [place] 1538) [address] POCT-GLUCOSE [id number] 06:15:00 Test Item Value Reference Range Interpretation Comments POC-GLUCOSE METER 249 mg/dL 70-110 H TESTED AT [facility] 6720 (BEAKER) (test code = [place] 1538) [address] CBC W/PLT COUNT & AUTO [id number] 06:05:00 Test Item Value Reference Range Interpretation [...] 0.00-0.20 (test code = 417) 0.00BASIC METABOLIC [id number] 05:11:00 Test Item Value Reference Range Interpretation [...] S NOT APPLICABLE FOR DIALYSIS PATIEN TS. [id number] 05:05:00 Test Item Value Reference Range Interpretation Comments MAGNESIUM (BEAKER) 2.3 mg/dL 1.6-2.6 Specimen slightly (test code = 627) hemolyzed [id number] 05:05:00 Test Item Value Reference Range Interpretation Comments PHOSPHORUS (BEAKER) 5.9 mg/dL 2.3-4.7 H Specimen slightly (test code = 604) hemolyzed POCT-GLUCOSE [id number] 04:02:00 Test Item Value Reference Range Interpretation Comments POC-GLUCOSE METER 187 mg/dL 70-110 H TESTED AT [facility] 6720 (BEAKER) (test code = [facility] 1538) [address]228 POCT-GLUCOSE [id number] 02:22:00 Test Item Value Reference Range Interpretation Comments POC-GLUCOSE METER 163 mg/dL 70-110 H TESTED AT [place] [address] ([facility] (test code = [facility] 1538) [address] POCT-GLUCOSE [id number] 00:54:00 Test Item Value Reference Range Interpretation Comments POC-GLUCOSE METER 239 mg/dL 70-110 H TESTED AT [place] [address] ([facility] (test code = [facility] 1538) [address]103 POCT-GLUCOSE [id number] 00:11:00 Test Item Value Reference Range Interpretation Comments POC-GLUCOSE METER 29 mg/dL 70-110 LL TESTED AT [place] [address] ([facility]) (test code = [facility] [address] 1538) POCT-GLUCOSE [id number] 21:35:00 Test Item Value Reference Range Interpretation Comments POC-GLUCOSE METER 100 mg/dL 70-110 TESTED AT [place] [address] ([facility]) (test code = [facility] 1538) [address]248 POCT-GLUCOSE [id number] 20:24:00 Test Item Value Reference Range Interpretation Comments POC-GLUCOSE METER 57 mg/dL 70-110 L TESTED AT [place] [address] ([facility] (test code = [facility] [address] 1538) BASIC METABOLIC [id number] 18:11:00 Test Item Value Reference Range Interpretation [...] NOT APPLICABLE FOR DIALYSIS PATIEN TS. POCT-GLUCOSE [id number] 17:33:00 Test Item Value Reference Range Interpretation Comments POC-GLUCOSE METER 87 mg/dL 70-110 TESTED AT [place] [address] ([facility]) (test code = MAIDANH [place] [address] 1538) POCT-GLUCOSE [id number] 17:33:00 Test Item Value Reference Range Interpretation Comments POC-GLUCOSE METER 54 mg/dL 70-110 L Notified Pau Bryant MD/TESTED AT ([facility]) (test code = [address] 1538) [facility] 7[address] 0 POCT-GLUCOSE [id number] 14:05:00 Test Item Value Reference Range Interpretation Comments POC-GLUCOSE METER 159 mg/dL 70-110 H TESTED AT [place] [address] ([facility]) (test code = [facility] 1538) [address]34 POCT-GLUCOSE [id number] 12:26:00 Test Item Value Reference Range Interpretation Comments POC-GLUCOSE METER 247 mg/dL 70-110 H TESTED AT [place] [address] ([facility]) (test code = [facility] 1538) [address] BASIC METABOLIC [id number] 11:20:00 Test Item Value Reference Range Interpretation [...] S NOT APPLICABLE FOR DIALYSIS PATIEN TS. [id number] 11:14:00 Test Item Value Reference Range Interpretation Comments MAGNESIUM (BEAKER) (test code = 2.2 mg/dL 1.6-2.6 627) CBC W/PLT COUNT & AUTO [id number] 11:14:00 Test Item Value Reference Range Interpretation [...] L 0.00-0.20 (test code = 417) 0.00POCT-GLUCOSE [id number] 10:17:00 Test Item Value Reference Range Interpretation Comments POC-GLUCOSE METER 172 mg/dL 70-110 H TESTED AT [facility] 6720 (BEAKER) (test code = [facility] 1538) [address] POCT-GLUCOSE [id number] 10:17:00 Test Item Value Reference Range Interpretation Comments POC-GLUCOSE METER 167 mg/dL 70-110 H TESTED AT [facility] 6720 (BEAKER) (test code = [facility] 1538) [address] POCT-GLUCOSE [id number] 10:17:00 Test Item Value Reference Range Interpretation Comments POC-GLUCOSE METER 176 mg/dL 70-110 H TESTED AT [facility] 6720 (BEAKER) (test code = [facility] 1538) [id number] 08:17:00 Test Item Value Reference Range Interpretation [...] 6 % 20-55 L (test code = 6060) VANCOMYCIN LEVEL, [id number] 06:52:00 Test Item Value Reference Range Interpretation Comments VANCOMYCIN RANDOM (BEAKER) (test 12.8 ug/mL code = 523) Reference Range: No NormalsHold further dosing for vancomycin level > 20, alert and RphPOCT-GLUCOSE [id number] 06:16:00 Test Item Value Reference Range Interpretation Comments POC-GLUCOSE METER 179 mg/dL 70-110 H TESTED AT [facility] 6720 ([facility]) (test code = [facility] 1538) [id number] POCT-GLUCOSE [id number] 05:08:00 Test Item Value Reference Range Interpretation Comments POC-GLUCOSE METER 185 mg/dL 70-110 H TESTED AT [facility] 6720 ([facility]) (test code = [facility] 1538) [address]596 PTH, [id number] 05:01:00 Test Item Value Reference Range Interpretation Comments PARATHYROID HORMONE INTACT 114.5 pg/mL 8.5-72.5 H ([facility]) (test code = 577) Effective 08/05/2014: Reference Range ChangeNew: 8.5-72.5 Previous: 15.0-90.0 BASIC METABOLIC [id number] 04:53:00 Test Item Value Reference Range Interpretation [...] S NOT APPLICABLE FOR DIALYSIS PATIEN TS. [id number] 04:52:00 Test Item Value Reference Range Interpretation Comments PHOSPHORUS (BEAKER) (test code = 3.4 mg/dL 2.3-4.7 604) POCT-GLUCOSE [id number] 04:18:00 Test Item Value Reference Range Interpretation Comments POC-GLUCOSE METER 134 mg/dL 70-110 H TESTED AT [facility] 6720 (BEAKER) (test code = [facility] 1538) [address]146 POCT-GLUCOSE [id number] 03:10:00 Test Item Value Reference Range Interpretation Comments POC-GLUCOSE METER 161 mg/dL 70-110 H TESTED AT [facility] 6720 (BEAKER) (test code = [facility] 1538) [address] POCT-GLUCOSE [id number] 02:13:00 Test Item Value Reference Range Interpretation Comments POC-GLUCOSE METER 173 mg/dL 70-110 H TESTED AT [place] [address] (BEAKER) (test code = [facility] 1538) [address] BASIC METABOLIC [id number] 01:40:00 Test Item Value Reference Range Interpretation [...] NOT APPLICABLE FOR DIALYSIS PATIEN TS. POCT-GLUCOSE [id number] 01:10:00 Test Item Value Reference Range Interpretation Comments POC-GLUCOSE METER 114 mg/dL 70-110 H TESTED AT [place] [address] [facility] ([facility] 1538) 18244 POCT-GLUCOSE [id number] 00:44:00 Test Item Value Reference Range Interpretation Comments POC-GLUCOSE METER 152 mg/dL 70-110 H TESTED AT [place] [address] ([facility]) ([facility] = [facility] 1538) [address] POCT-GLUCOSE [id number] 23:07:00 Test Item Value Reference Range Interpretation Comments POC-GLUCOSE METER 162 mg/dL 70-110 H TESTED AT [place] [address] ([facility]) (test code = [facility] 1538) [address]28 POCT-GLUCOSE [id number] 22:12:00 Test Item Value Reference Range Interpretation Comments POC-GLUCOSE METER 115 mg/dL 70-110 H TESTED AT [place] [address] ([facility]) (test code = [facility] 1538) [address] POCT-GLUCOSE [id number] 21:20:00 Test Item Value Reference Range Interpretation Comments POC-GLUCOSE METER 88 mg/dL 70-110 TESTED AT [place] [address] ([facility]) (test code = [facility] [address] 1538) POCT-GLUCOSE [id number] 20:10:00 Test Item Value Reference Range Interpretation Comments POC-GLUCOSE METER 109 mg/dL 70-110 TESTED AT [place] [address] ([facility]) (test code = [facility] 1538) 30262 HEPATITIS B SURFACE [id number] 19:53:00 Test Item Value Reference Range Interpretation Comments HEPATITIS B SURFACE ANTIGEN (2) Nonreactive Nonreactive (BEAKER) (test code = 2585) BASIC METABOLIC [id number] 19:35:00 Test Item Value Reference Range Interpretation [...] NOT APPLICABLE FOR DIALYSIS PATIEN TS. POCT-GLUCOSE [id number] 19:14:00 Test Item Value Reference Range Interpretation Comments POC-GLUCOSE METER 179 mg/dL 70-110 H TESTED AT [facility] 67[address] [facility] (test code = [facility] 1538) 95179 POCT-GLUCOSE [id number] 17:57:00 Test Item Value Reference Range Interpretation Comments POC-GLUCOSE METER 173 mg/dL 70-110 H TESTED AT [place] [address] [facility] (test code = [facility] 1538) [address]385 BASIC METABOLIC [id number] 16:42:00 Test Item Value Reference Range Interpretation [...] NOT APPLICABLE FOR DIALYSIS PATIEN TS. POCT-GLUCOSE [id number] 15:59:00 Test Item Value Reference Range Interpretation Comments POC-GLUCOSE METER 289 mg/dL 70-110 H TESTED AT [place] [address] (BEAKER) (test code = [place] 1538) [address] POCT-GLUCOSE [id number] 15:23:00 Test Item Value Reference Range Interpretation Comments POC-GLUCOSE METER 296 mg/dL 70-110 H TESTED AT [place] [address] (BEAKER) (test code = [place] 1538) [address] POCT-GLUCOSE [id number] 15:23:00 Test Item Value Reference Range Interpretation Comments POC-GLUCOSE METER 342 mg/dL 70-110 H TESTED AT [place] [address] (BEAKER) (test code = [place] 1538) [address] BASIC METABOLIC [id number] 12:33:00 Test Item Value Reference Range Interpretation [...] NOT APPLICABLE FOR DIALYSIS PATIEN TS. POCT-GLUCOSE [id number] 12:23:00 Test Item Value Reference Range Interpretation Comments POC-GLUCOSE METER 231 mg/dL 70-110 H TESTED AT [place] [id number] (BEAKER) (test code = [place] 1538) [address] HEMOGLOBIN [id number] 11:38:00 Test Item Value Reference Range Interpretation Comments HEMOGLOBIN A1C (BEAKER) (test code = 9.9 % 4.3-6.1 H 368) POCT-GLUCOSE [id number] 11:09:00 Test Item Value Reference Range Interpretation Comments POC-GLUCOSE METER 212 mg/dL 70-110 H TESTED AT [place] [address] ([facility] (test code = [place] 1538) [address] BASIC METABOLIC [id number] 10:52:00 Test Item Value Reference Range Interpretation [...] S NOT APPLICABLE FOR DIALYSIS PATIEN TS. [id number] 10:31:00 Test Item Value Reference Range Interpretation Comments MAGNESIUM (BEAKER) (test code = 2.4 mg/dL 1.6-2.6 627) POCT-GLUCOSE [id number] 10:17:00 Test Item Value Reference Range Interpretation Comments POC-GLUCOSE METER 202 mg/dL 70-110 H TESTED AT [facility] 67[address] [facility] (test code = [place] 1538) [address] TROPONIN [id number] 10:16:00 Test Item Value Reference Range Interpretation [...] acute neurological disease, and persistent tachyarrhythmia.BLOOD GAS, [id number] 09:27:00 Test Item Value Reference Range Interpretation [...] (test code = 1819) 21.0 % POCT-GLUCOSE [id number] 09:19:00 Test Item Value Reference Range Interpretation Comments POC-GLUCOSE METER 179 mg/dL 70-110 H TESTED AT [facility] 6720 (BEAKER) (test code = [place] 1538) [address] LACTIC ACID, VENOUS, WHOLE [id number] 09:13:00 Test Item Value Reference Range Interpretation Comments LACTATE BLOOD VENOUS (2) (BEAKER) 1.5 mmol/L 0.5-2.2 (test code = 2872) Effective 01/20/2016: Units/Reference Range ChangeNew: 0.5-2.2 mmol/L Previous: 5-20 mg/dLKETONE, [id number] 08:51:00 Test Item Value Reference Range Interpretation Comments KETONES, BLOOD (BEAKER) (test code 0.0 mmol/L <0.4 = 1103) POCT-GLUCOSE [id number] 08:08:00 Test Item Value Reference Range Interpretation Comments POC-GLUCOSE METER 211 mg/dL 70-110 H TESTED AT [place] [id number] (BEAKER) (test code = [place] [facility] 1538) 98719 POCT-GLUCOSE [id number] 07:30:00 Test Item Value Reference Range Interpretation Comments POC-GLUCOSE METER 230 mg/dL 70-110 H TESTED AT [place] [id number] ([facility] (test code = [place] [facility] 1538) [address]45 POCT-GLUCOSE [id number] 06:05:00 Test Item Value Reference Range Interpretation Comments POC-GLUCOSE METER 349 mg/dL 70-110 H Notified R Manny DALTON/TESTED (BEAKER) (test code = AT [place] [id number] [facility] 1538) [facility] 7[address] 0 [id number] 05:46:00 Test Item Value Reference Range Interpretation Comments GLUCOSE RANDOM (BEAKER) (test code 472 mg/dL 70-105 HH = 652) Effective 08/05/2014: Reference Range Change-Adult onlyNew: 70-105 Previous: 70-110If last glucose was less than 500, may do bedside glucose instead of serum glucose.[id number] 05:31:00 Test Item Value Reference Range Interpretation Comments POTASSIUM (BEAKER) (test code = 4.8 meq/L 3.5-5.1 379) If last glucose was less than 500, may do bedside glucose instead of serum glucose.KETONE, [id number] 05:16:00 Test Item Value Reference Range Interpretation Comments KETONES, BLOOD (BEAKER) (test code 0.0 mmol/L <0.4 = 1103) POCT-GLUCOSE [id number] 05:00:00 Test Item Value Reference Range Interpretation Comments POC-GLUCOSE METER 456 mg/dL 70-110 HH TESTED AT [place] [address] (BEAKER) (test code = [place] [facility] 1538) [address]001 POCT-GLUCOSE [id number] 04:08:00 Test Item Value Reference Range Interpretation Comments POC-GLUCOSE METER > mg/dL 70-110 HH OUTSIDE ME ASURING (BEAKER) (test code RANGETES CASANDRA AT [place] [address] = 1538) [facility] [address] [id number] 03:41:00 Test Item Value Reference Range Interpretation Comments GLUCOSE RANDOM (BEAKER) (test code 705 mg/dL 70-105 HH = 652) Effective 08/05/2014: Reference Range Change-Adult onlyNew: 70-105 Previous: 70-110If last glucose was less than 500, may do bedside glucose instead of serum glucose.URINALYSIS W/ REFLEX URINE [id number] 03:02:00 Test Item Value Reference Range Interpretation [...] code = 1584) SOURCE(BEAKER) (test code = 6495) [id number] 02:51:00 Test Item Value Reference Range Interpretation Comments GLUCOSE RANDOM (BEAKER) (test code 684 mg/dL 70-105 HH = 652) Effective 08/05/2014: Reference Range Change-Adult onlyNew: 70-105 Previous: 70-110If last glucose was less than 500, may do bedside glucose instead of serum glucose.COMPREHENSIVE METABOLIC [id number] 02:51:00 Test Item Value Reference Range Interpretation [...] may do bedside glucose instead of serum glucose.[id number] 02:50:00 Test Item Value Reference Range Interpretation Comments THYROID STIMULATING HORMONE 2.15 uIU/mL 0.35-4.94 (BEAKER) (test code = 772) [id number] 02:45:00 Test Item Value Reference Range Interpretation Comments MAGNESIUM (BEAKER) (test code = 2.0 mg/dL 1.6-2.6 627) [id number] 02:45:00 Test Item Value Reference Range Interpretation Comments PHOSPHORUS (BEAKER) (test code = 4.4 mg/dL 2.3-4.7 604) CREATINE KINASE (CK), TOTAL AND [id number] 02:41:00 Test Item Value Reference Range Interpretation Comments CREATINE KINASE TOTAL (BEAKER) 140 U/L 29-200 (test code = 380) CREATINE KINASE-MB (BEAKER) (test 7.2 ng/mL 0.0-6.6 H code = 750) CREATINE KINASE-MB INDEX (BEAKER) 5.1 % (test code = 395) Effective 08/05/2014: CK-MB Reference Range ChangeNew: 0.0-6.6 Previous: 0.0-4.9CK-MB Reference Range:<6.7 Normal6.7-10.0 Borderline>10.0 AbnormalTROPONIN [id number] 02:36:00 Test Item Value Reference Range Interpretation [...] renalfailure, acidosis, acute neurological disease, and persistent tachyarrhythmia.[id number] 02:31:00 Test Item Value Reference Range Interpretation Comments POTASSIUM (BEAKER) (test code = 4.8 meq/L 3.5-5.1 379) If last glucose was less than 500, may do bedside glucose instead of serum glucose.CBC W/PLT COUNT & AUTO [id number] 02:31:00 Test Item Value Reference Range Interpretation [...] 0.00-0.20 (test code = 417) 0.000.640.000.580.000.000.000.00BLOOD GAS, [id number] 02:26:00 Test Item Value Reference Range Interpretation [...] 1819) 30.0 % LACTIC ACID, ARTERIAL, WHOLE [id number] 02:25:00 Test Item Value Reference Range Interpretation Comments LACTATE BLOOD ARTERIAL (2) 4.9 mmol/L 0.5-2.2 H (BEAKER) (test code = 2874) Effective 01/20/2016: Units/Reference Range ChangeNew: 0.5-2.2 mmol/L Previous: 5-20 mg/dLPOCT-GLUCOSE [id number] 02:18:00 Test Item Value Reference Range Interpretation Comments POC-GLUCOSE METER 493 mg/dL 70-110 HH TESTED AT [facility] 6720 ([facility]) (test code = [place] 1538) [address] [id number] 02:17:00 Test Item Value Reference Range Interpretation Comments PARTIAL THROMBOPLASTIN TIME 25.3 seconds 22.5-36.0 ([facility]) (test code = 760) PROTHROMBIN [id number] 02:16:00 Test Item Value Reference Range Interpretation Comments PROTIME (AKER) (test code = 13.2 seconds 11.7-14.7 759) INR (AKER) (test code = 370) 1.0 <=5.9 RECOMMENDED COUMADIN/WARFARIN INR THERAPY RANGESSTANDARD DOSE: 2.0 - 3.0 Includes: PROPHYLAXIS forvenous thrombosis, systemic embolization; TREATMENT for venous thrombosis and/or pulmonary embolus.HIGH RISK: Target INR is 2.5-3.5 for patients with mechanical heart valves.
[2021-01-07 07:59] LABS: Absolute Lymphocytes (CBC) 0.2 K/uL (0.7-4.9); Basophils % 1.6 % (0-1.3); Lymphocytes % 20.3 % (15.3-44.8); MPV 10.7 fL (7.6-11.3); RBC Red Blood Cell Count 4.17 M/uL (4.33-5.43)
[2021-01-07] MEDS ORDERED: D50W 50 ML IV ONE (08:13)
[2021-01-07 08:22] LABS: Potassium 4.6 mmol/L (3.5-5.1)
[2021-01-07 09:08] LABS: SARS-COV-2 RT PCR POSITIVE (NEGATIVE)
--- NOTE | 2021-01-07 09:58 | RAD REPORT ---
EXAM DESCRIPTION: RAD - Chest Single View - 01/07/2021 9:29 am CLINICAL HISTORY: COVID + COMPARISON: Portable February 2020 TECHNIQUE: AP portable chest image was obtained 01/07/2021 9:29 bledsoe supine positioning . FINDINGS: Left-sided dialysis catheter has been removed since the prior examination. Patient has ext ensive bilateral airspace opacification in the mid and lower lung pacheco. Given the provided history this would be consistent with a moderately severe COVID-19 pneumonia. Trachea is midline. Stent is pr esent in the brachiocephalic vein. Heart and vasculature are normal. No measurable pleural effusion a nd no pneumothorax. No acute bony abnormality seen. No acute aortic findings suspected. IMPRESSION: Moderately severe bilateral COVID-19 pneumonia.
[2021-01-07 10:00] LABS: Blood Morphology Comment NOT SEEN (NOT SEEN); Platelet Estimate DECR; White Blood Cell Scan OK (OK)
--- NOTE | 2021-01-07 10:25 | EDPHYS ---
Physician Documentation [facility] Name: Orlando Culp Age: 45 yrs Sex: Male : 1975 Arrival Date: 01/07/2021 Time: 07:16 Bed 7 Private MD: ED Physician Jarett Leon HPI: 01/07 08:11 This 45 yrs old Male presents to ER via EMS with complaints of General rn Weakness. 08:11 Per EMS, called out twice this AM for generalized weakness and hypoglycemia, happens rn frequently with patient. Patient states felt fine when went to bed, didn't eat dinner because didn't have an appetite. No fever/chest pain/sob/abd pain/vomiting. + intermittent diarrhea. Had 2nd covid shot 4 days ago. Scheduled for dialysis today at 1030.. Onset: The symptoms/episode began/occurred this morning. Severity of symptoms: At their worst the symptoms were moderate in the emergency department the symptoms have improved. The patient has experienced similar episodes in the past. The patient has not recently seen a physician. Historical: - Allergies: 07:23 PENICILLINS; bp 07:23 Phenergan; bp - Home Meds: 07:23 aspirin 81 mg Oral TbEC 1 tab once daily [Active]; carvedilol 12.5 mg Oral tab 1 tab 2 bp times per day [Active]; glipizide 5 mg Oral tab [Active]; lisinopril 20 mg Oral tab 1 tab once daily [Active]; metoclopramide HCl 5 mg Oral tab [Active]; Novolog Sub-Q [Active]; Renvela 800 mg Oral tab [Active]; Veltassa Oral [Active]; - PMHx: 07:23 Diabetes - IDDM; ESRD; GERD; Hypertension; bp - Immunization history:: Adult Immunizations up to date. - Social history:: Smoking status: Patient denies any tobacco usage or history of. - Family history:: not pertinent. - Hospitalizations: : No recent hospitalization is reported. ROS: 08:11 Constitutional: Negative for fever, weight loss, Neck: Negative for injury, pain, and rn swelling, Cardiovascular: Negative for chest pain, palpitations Respiratory: Negative for shortness of breath, cough, wheezing, and pleuritic chest pain, Abdomen/GI: Negative for abdominal pain, nausea, vomiting, and constipation, Back: Negative for injury and pain, MS/Extremity: Negative for injury and deformity, Skin: Negative for injury, rash, and discoloration, Neuro: Negative for headache, numbness, tingling, and seizure. Exam: 08:11 Constitutional: This is a well developed, well nourished patient who is awake, alert, rn and in no acute distress. Head/Face: Normocephalic, atraumatic. ENT: dry MM Cardiovascular: Tachycardic, regular. No pulse deficits. Respiratory: No increased work of breathing, no retractions or nasal flaring. Abdomen/GI: soft, non-tender Skin: Warm, dry MS/ Extremity: Pulses equal, no cyanosis. Neurovascular intact. Full, normal range of motion. Equal circumference. Neuro: Awake and alert, GCS 15, oriented to person, place, time, and situation. Motor strength 4/5 in all extremities. Sensory grossly intact. Vital Signs: 07:19 BP 166 / 107; Pulse 102; Resp 18 S; Temp 98.6(O); Pulse Ox 93% on R/A; Weight 75.75 kg jd3 (R); Height 5 ft. 8 in. (172.72 cm) (R); Pain 9/10; 08:02 BP 159 / 85; Pulse 103; Resp 19; Pulse Ox 96% on 3 lpm NC; bp 09:00 BP 137 / 73; Pulse 108; Resp 15; Pulse Ox 93% ; bp 10:00 BP 151 / 79; Pulse 99; Resp 17; Pulse Ox 95% ; bp 11:00 BP 136 / 79; Pulse 100; Resp 16; Pulse Ox 95% ; ld1 12:00 BP 136 / 63; Pulse 93; Resp 15; Pulse Ox 90% ; bp 13:00 BP 131 / 71; Pulse 101; Resp 15; Pulse Ox 93% ; bp 14:00 BP 135 / 72; Pulse 92; Resp 16; Pulse Ox 94% ; bp 07:19 Body Mass Index 25.39 (75.75 kg, 172.72 cm) jd3 MDM: 07:17 Patient medically screened. rn 08:11 ED course: Pt reports feels weak and tired like this when glucose is low, glucose in rn 60s for EMS, nothing given, now back into 30s, D50 and food ordered. . 10:23 Differential Diagnosis viral syndrome, hypoglycemia, pneumonia, COVID. Data reviewed: rn vital signs, nurses notes, lab test result(s), radiologic studies, plain films, and as a result, I will admit patient. Counseling: I had a detailed discussion with the patient and/or guardian regarding: the historical points, exam findings, and any diagnostic results supporting the discharge/admit diagnosis, lab results, radiology results, the need for further work-up and treatment in the hospital. Response to treatment: the patient's symptoms have mildly improved after treatment, and as a result, I will admit patient. Admission orders: after a detailed discussion of the patient's condition and case, the admit orders are written by me. ED course: Consulted with Dr. Bone, will arrange for dialysis in hospital given COVID infection and moderate severity pneumonia on CXR. Oxygen 91%, 93% on 2L.. 01/07 07:19 Order name: CBC with Diff 01/07 07:19 Order name: Basic Metabolic Panel 01/07 07:19 Order name: COVID-19 : Document "Date of Symptom Onset" if Symptomatic. 01/07 07:19 Order name: CBC with Automated Diff; Complete Time: 10:15 EDMA 01/07 07:19 Order name: Basic Metabolic Panel; Complete Time: 08:37 EDMA 01/07 07:58 Order name: Glucose, Ancillary Testing; Complete Time: 08:37 EDMA 01/07 08:57 Order name: Glucose, Ancillary Testing; Complete Time: 08:59 EDMA 01/07 09:08 Order name: COVID-19/FLU A+B; Complete Time: 09:08 EDMA 01/07 09:58 Order name: CBC Smear Scan; Complete Time: 10:15 EDMA 01/07 10:17 Order name: Blood Culture Adult (2) 01/07 10:17 Order name: Ferritin rn 01/07 10:17 Order name: Procalcitonin 01/07 09:12 Order name: XRAY Chest (1 view); Complete Time: 10:01 01/07 10:17 Order name: CRP 01/07 12:31 Order name: Comprehensive Metabolic Panel [facility] 01/07 12:31 Order name: Comprehensive Metabolic Panel [facility] 01/07 12:31 Order name: C-Reactive Protein [facility] 01/07 12:31 Order name: C-Reactive Protein [facility] 01/07 12:31 Order name: CBC with Automated Diff [facility] 01/07 12:31 Order name: CBC with Automated Diff [facility] 01/07 12:31 Order name: D-Dimer [facility] 01/07 12:31 Order name: D-Dimer [facility] 01/07 12:31 Order name: Ferritin [facility] 01/07 12:31 Order name: Ferritin [facility] 01/07 12:31 Order name: Hemoglobin A1c [facility] 01/07 12:31 Order name: Hemoglobin A1c [facility] 01/07 07:19 Order name: IV Start; Complete Time: 08:01 rn 01/07 07:19 Order name: EKG; Complete Time: 07:19 rn 01/07 07:19 Order name: EKG - Nurse/Tech; Complete Time: 08:01 rn 01/07 07:19 Order name: Glucose Level; Complete Time: 08:01 rn 01/07 07:19 Order name: PO challenge; Complete Time: 12:01 rn 01/07 12:31 Order name: CONS Physician Consult EDMA 01/07 12:31 Order name: Renal EDMA Administered Medications: 07:45 Drug: D50W 50 ml Route: IVP; Site: right forearm; bp 08:04 Follow up: Response: No adverse reaction bp 11:04 Follow up: Response: Blood sugar is elevated bp 10:10 Drug: SOLU-Medrol (methylPrednisoLONE) 125 mg Route: IVP; Site: right forearm; bp 11:29 Follow up: Response: No adverse reaction bp Disposition: 01/07/21 10:24 Hospitalization ordered by Jam Forrester for Inpatient Admission. Preliminary diagnosis are Coronavirus infection, unspecified, Pneumonia, unspecified organism, Hypoglycemia, unspecified, End stage renal disease. - Bed requested for Telemetry/MedSurg (Inpatient). - Status is Inpatient Admission. bp - Condition is Stable. - Problem is new. - Symptoms have improved. Signatures: Dispatcher [employer] EDMA Jarett Leon MD MD rn Calderon, Audri, RN RN aa5 Min Ramirez, RN RN bp Corrections: (The following items were deleted from the chart) 08:12 07:19 [facility]ONAVIRUS ordered. [facility] 08:13 07:19 Influenza Screen (A \\T\\ B)+BA.LAB.BRZ ordered. EDMA EDMS 08:16 08:11 Constitutional: Negative for fever, weight loss, Neck: Negative for injury, pain, rn and swelling, Cardiovascular: Negative for chest pain, palpitations Respiratory: Negative for shortness of breath, cough, wheezing, and pleuritic chest pain, Abdomen/GI: Negative for abdominal pain, nausea, vomiting, diarrhea, and constipation, Back: Negative for injury and pain, MS/Extremity: Negative for injury and deformity, Skin: Negative for injury, rash, and discoloration, Neuro: Negative for headache, numbness, tingling, and seizure, rn 13:52 10:24 Hospitalization Ordered by Jam Forrester MD for Inpatient Admission. Preliminary aa5 diagnosis is Coronavirus infection, unspecified; Pneumonia, unspecified organism; Hypoglycemia, unspecified; End stage renal disease. Bed requested for Telemetry/MedSurg (Inpatient). Status is Inpatient Admission. Condition is Stable. Problem is new. Symptoms have improved. rn 15:21 13:52 01/07/2021 10:24 Hospitalization Ordered by Jam Forrester MD for Inpatient bp Admission. Preliminary diagnosis is Coronavirus infection, unspecified; Pneumonia, unspecified organism; Hypoglycemia, unspecified; End stage renal disease. Bed requested for Telemetry/MedSurg (Inpatient). Status is Inpatient Admission. Condition is Stable. Problem is new. Symptoms have improved. aa5
--- NOTE | 2021-01-07 10:25 | ER ---
Nurse's Notes [facility] Name: Orlando Culp Age: 45 yrs Sex: Male : 1975 Arrival Date: 01/07/2021 Time: 07:16 Bed 7 Private MD: Diagnosis: Coronavirus infection, unspecified;Pneumonia, unspecified organism;Hypoglycemia, unspecified;End stage renal disease Presentation: 01/07 07:17 Chief complaint: EMS states: SEEN FOR HYPOGLYCEMIA, REFUSED TRANSPORT, THEN FAMILY bp CALLED FOR GENERALIZED WEAKNESS. PT SCHEDULED FOR DIALYSIS TODAY. Coronavirus screen: At this time, the client does not indicate any symptoms associated with coronavirus-19. Ebola Screen: No symptoms or risks identified at this time. Initial Sepsis Screen: Does the patient meet any 2 criteria? No. Patient's initial sepsis screen is negative. Does the patient have a suspected source of infection? No. Patient's initial sepsis screen is negative. Risk Assessment: Do you want to hurt yourself or someone else? Patient reports no desire to harm self or others. Onset of symptoms is unknown. Care prior to arrival: Glucose check: 85. 07:17 Method Of Arrival: EMS: [facility] bp 07:17 Acuity: DEMARIO 3 bp Triage Assessment: 07:23 General: Appears in no apparent distress. comfortable, Behavior is cooperative, bp appropriate for age, anxious. Pain: Denies pain. EENT: No deficits noted. Neuro: No deficits noted. Cardiovascular: No deficits noted. Respiratory: No deficits noted. GI: No signs and/or symptoms were reported involving the gastrointestinal system. : No signs and/or symptoms were reported regarding the genitourinary system. Derm: No deficits noted. Musculoskeletal: No deficits noted. Historical: - Allergies: 07:23 PENICILLINS; bp 07:23 Phenergan; bp - Home Meds: 07:23 aspirin 81 mg Oral TbEC 1 tab once daily [Active]; carvedilol 12.5 mg Oral tab 1 tab 2 bp times per day [Active]; glipizide 5 mg Oral tab [Active]; lisinopril 20 mg Oral tab 1 tab once daily [Active]; metoclopramide HCl 5 mg Oral tab [Active]; Novolog Sub-Q [Active]; Renvela 800 mg Oral tab [Active]; Veltassa Oral [Active]; - PMHx: 07:23 Diabetes - IDDM; ESRD; GERD; Hypertension; bp - Immunization history:: Adult Immunizations up to date. - Social history:: Smoking status: Patient denies any tobacco usage or history of. - Family history:: not pertinent. - Hospitalizations: : No recent hospitalization is reported. Screenin:24 Abuse screen: Denies threats or abuse. Denies injuries from another. Nutritional bp screening: No deficits noted. Tuberculosis screening: No symptoms or risk factors identified. Fall Risk None identified. Assessment: 07:24 General: SEE TRIAGE NOTE. bp 08:03 Reassessment: PT NOTED HYPOGLYCEMIC AT 36. MD NOTIFIED. PT MEDICATED AND TRAY ORDERED. bp 09:00 Reassessment: PT NOTED COV+. DISPO ON HOLD TO FIND ACCEPTING DIALYSIS CLINIC. bp 10:00 Reassessment: No changes from previously documented assessment. Patient and/or family bp updated on plan of care and expected duration. Pain level reassessed. Patient is alert, oriented x 3, equal unlabored respirations, skin warm/dry/pink. 11:00 Reassessment: Patient appears in no apparent distress at this time. No changes from bp previously documented assessment. Patient and/or family updated on plan of care and expected duration. Pain level reassessed. ADMIT INITIATED. PT SLEEPING. 12:00 Reassessment: Patient appears in no apparent distress at this time. No changes from bp previously documented assessment. Patient and/or family updated on plan of care and expected duration. Pain level reassessed. 13:00 Reassessment: Patient appears in no apparent distress at this time. No changes from bp previously documented assessment. Patient and/or family updated on plan of care and expected duration. Pain level reassessed. ADMIT IN PROCESS. 13:33 Reassessment: DIALYSIS POSTPONED FOR ADMIT, WATER PRESSURE INSUFFICIENT IN ROOM. bp 14:03 Reassessment: ADMIT COMPLETE, PT ASSIGNED [id number] RN. bp Vital Signs: 07:19 BP 166 / 107; Pulse 102; Resp 18 S; Temp 98.6(O); Pulse Ox 93% on R/A; Weight 75.75 kg jd3 (R); Height 5 ft. 8 in. (172.72 cm) (R); Pain 9/10; 08:02 BP 159 / 85; Pulse 103; Resp 19; Pulse Ox 96% on 3 lpm NC; bp 09:00 BP 137 / 73; Pulse 108; Resp 15; Pulse Ox 93% ; bp 10:00 BP 151 / 79; Pulse 99; Resp 17; Pulse Ox 95% ; bp 11:00 BP 136 / 79; Pulse 100; Resp 16; Pulse Ox 95% ; ld1 12:00 BP 136 / 63; Pulse 93; Resp 15; Pulse Ox 90% ; bp 13:00 BP 131 / 71; Pulse 101; Resp 15; Pulse Ox 93% ; bp 14:00 BP 135 / 72; Pulse 92; Resp 16; Pulse Ox 94% ; bp 07:19 Body Mass Index 25.39 (75.75 kg, 172.72 cm) jd3 ED Course: 07:16 Patient arrived in ED. bp 07:17 Jarett Leon MD is Attending Physician. rn 07:20 Triage completed. bp 07:23 Arm band placed on. bp 07:24 Patient has correct armband on for positive identification. Bed in low position. Call bp light in reach. Side rails up X2. 07:45 Inserted saline lock: 22 gauge in right forearm, using aseptic technique. Blood bp collected. 08:01 COVID-19 : Document "Date of Symptom Onset" if Symptomatic. Sent. bp 08:04 Min Ramirez, KAELA is Primary Nurse. bp 08:05 CBC with Diff Sent. bp 08:05 Basic Metabolic Panel Sent. bp 09:27 XRAY Chest (1 view) In Process Unspecified. EDMS 10:24 Jam Forrester MD is Hospitalizing Provider. rn 14:06 No provider procedures requiring assistance completed. Patient admitted, IV remains in bp place. Administered Medications: 07:45 Drug: D50W 50 ml Route: IVP; Site: right forearm; bp 08:04 Follow up: Response: No adverse reaction bp 11:04 Follow up: Response: Blood sugar is elevated bp 10:10 Drug: SOLU-Medrol (methylPrednisoLONE) 125 mg Route: IVP; Site: right forearm; bp 11:29 Follow up: Response: No adverse reaction bp Outcome: 10:24 Decision to Hospitalize by Provider. rn 14:38 Admitted to Med/surg accompanied by tech, via stretcher, room 409, Report called to bp GOLD SHERWOOD 14:38 Condition: stable 14:38 Instructed on the need for admit. 15:21 Patient left the ED. bp Signatures: Dispatcher [employer] EDMS Jarett Leon MD MD rn Davies, Jonathon, RN RN jd3 Min Ramirez RN RN Karyn Fernandes RN RN ld1
--- NOTE | 2021-01-07 10:46 | P.CNS ---
Date of Consult: 01/07/21 Reason for Consult: ESRD on HD Requesting Physician: Jarett Leon Chief Complaint: Gen weakness, hypoglycemia History of Present Illness: 45M w/ PMHx of ESRD on HD TTS, EDW 59 kg, HD access via a left arm AV graft, and hypertension, who presented with generalized weakness and hypoglycemia, admitted for cough and pneumonia. He received hemodialysis yesterday. Allergies Penicillins Allergy (Intermediate, Verified 04/27/20 15:35) Rash promethazine [From Phenergan] Allergy (Verified 04/27/20 15:35) Rash - Past Medical/Surgical History Diabetic: Yes -: diabetic -: Ludwigs angina -: Diabetic ketoacidosis -: Renal failure -: Sepsis -: gi tube -: Rt eye sx -: chin sx with wound vac - Family History Mother Medical History: Hypertension - Social History Smoking Status: Unknown if ever smoked Alcohol use: No CD- Drugs: No Caffeine use: No Review of Systems General: Weakness Eyes: Unremarkable ENT: Unremarkable Respiratory: Unremarkable Cardiovascular: Unremarkable Gastrointestinal: Unremarkable Genitourinary: Unremarkable Musculoskeletal: Other (generalized weakness) Integumentary: Unremarkable Neurological: Weakness Lymphatics: Unremarkable Other: hypoglycemia Physical Examination Other Physical/Emotional Findings: physical examination not done due to covid isolation. Laboratory Data (last 24 hrs) 01/07/21 07:45: Sodium 133 L, Potassium 4.6, BUN 31 H, Creatinine 8.61 H*, Glucose 45 L* 01/07/21 07:45: WBC 1.20 L*, Hgb 13.2 L, Hct 40.0, Plt Count 82 L Conclusions/Impression: # ESRD on HD TTS Received HD yesterday No acute indication for HD today Next HD tomorrow per TTS schedule Estimated dry weight 59 kg HD access: Left arm AV graft Renal vitamin by mouth q daily Monitor renal panel # COVID pneumonia Management per other services # Hypertension BP okay Continue current regimen # Anemia Monitor H&H # CKDMBD onitor calcium and phosphorus
[2021-01-07] MEDS ORDERED: ACETAMINOPHEN 500 MG TAB PO PRN (12:24)
[2021-01-07] MEDS ORDERED: ONDANSETRON 4 MG/2 ML VIAL IV PRN (12:24)
[2021-01-07] MEDS: MORPHINE 2 MG/ML SYR IV PRN (16:00)
[2021-01-07 16:42] VITALS: BMI 25.4
[2021-01-07] MEDS: METHYLPREDNISOLONE 125 MG INJ IV SCH (21:48)
[2021-01-07] MEDS: APIXABAN 2.5 MG TABLET PO SCH (21:48)
[2021-01-08] MEDS: METHYLPREDNISOLONE 125 MG INJ IV SCH ×2 (08:52→21:05)
[2021-01-08] MEDS: APIXABAN 2.5 MG TABLET PO SCH ×2 (08:52→21:05)
--- NOTE | 2021-01-08 10:02 | P.PN ---
Subjective Date of Service: 01/08/21 Chief Complaint: Gen weakness, hypoglycemia Subjective: No new changes Physical Examination - Vital Signs Temperature: 98.5 F Blood Pressure: 164/78 Pulse: 93 Respirations: 16 Pulse Ox (%): 91 - Physical Exam General: Mild distress HEENT: Atraumatic, Normocephalic Neck: Supple Other Physical/Emotional Findings: physical examination not done due to covid isolation. Assessment And Plan - Plan # ESRD on HD TTS Received HD yesterday No acute indication for HD today Next HD tomorrow per TTS schedule Estimated dry weight 59 kg HD access: Left arm AV graft Renal vitamin by mouth q daily Monitor renal panel # COVID pneumonia Management per other services # Hypertension BP okay Continue current regimen # Anemia Monitor H&H # CKDMBD Monitor calcium and phosphorus
[2021-01-08 10:35] LABS: Absolute Lymphocytes (CBC) 0.3 K/uL (0.7-4.9); Basophils % 0.1 % (0-1.3); Hematocrit 36.7 % (39.6-49.0); Lymphocytes % 2.5 % (15.3-44.8); MPV 10.7 fL (7.6-11.3); RBC Red Blood Cell Count 3.82 M/uL (4.33-5.43)
[2021-01-08 11:23] LABS: Albumin 1.8 g/dL (3.4-5.0); Bilirubin Total 0.7 mg/dL (0.2-1.0); Ferritin 2588.3 ng/mL (26-388); Protein, Total 6.5 g/dL (6.4-8.2)
[2021-01-08 11:29] LABS: Potassium 4.6 mmol/L (3.5-5.1)
[2021-01-08 13:24] LABS: Blood Morphology Comment NOT SEEN (NOT SEEN); Platelet Estimate DECR
[2021-01-08] MEDS: SODIUM BICARB 325 MG TAB PO SCH ×2 (14:10→21:05)
[2021-01-08] MEDS: carvediloL 6.25 MG TAB PO SCH (15:55)
[2021-01-08] MEDS ORDERED: GLUCAGON 1 MG/VIAL IM PRN (20:19)
[2021-01-08] MEDS ORDERED: D50W 25 GM/50 ML SYRINGE IV PRN (20:19)
[2021-01-08] MEDS: INSULIN -REGULAR HUMAN 50 UNIT/0.5 ML ML SQ SCH (21:04)
[2021-01-09] MEDS: carvediloL 6.25 MG TAB PO SCH ×4 (00:44→21:17)
[2021-01-09] MEDS: INSULIN -REGULAR HUMAN 50 UNIT/0.5 ML ML SQ SCH ×4 (07:30→21:43)
--- NOTE | 2021-01-09 08:02 | EKG ---
Test Date: 2021-01-07 Test Time: 07:35:34 Wound Care Specialist: BP MEASUREMENT RESULTS: Intervals: Rate: 101 DC: 130 QRSD: 74 QT: 358 QTc: 464 Crane: P: 62 DC: 130 QRS: 35 T: 82 INTERPRETIVE STATEMENTS: Sinus tachycardia T wave abnormality, consider inferior ischemia Abnormal ECG No previous ECG available for comparison Electronically Signed On 01-09-21 07:58:44 CDT by Marino Parson
[2021-01-09] MEDS: METHYLPREDNISOLONE 125 MG INJ IV SCH ×2 (08:41→21:08)
[2021-01-09] MEDS: APIXABAN 2.5 MG TABLET PO SCH ×2 (08:42→21:16)
[2021-01-09] MEDS: SODIUM BICARB 325 MG TAB PO SCH ×2 (09:28→21:17)
[2021-01-09 11:55] LABS: Absolute Lymphocytes (CBC) 0.3 K/uL (0.7-4.9); Basophils % 0.3 % (0-1.3); Hematocrit 36.3 % (39.6-49.0); Lymphocytes % 2.3 % (15.3-44.8); MPV 10.4 fL (7.6-11.3); RBC Red Blood Cell Count 3.79 M/uL (4.33-5.43)
[2021-01-09 12:52] LABS: Magnesium 2.4 mg/dL (1.8-2.4); Phosphorus 5.8 mg/dL (2.5-4.9); Potassium 4.2 mmol/L (3.5-5.1)
[2021-01-09] MEDS: FOLBIC 1 TAB PO SCH (16:06)
[2021-01-09] MEDS: MORPHINE 2 MG/ML SYR IV PRN (21:18)
--- NOTE | 2021-01-09 23:35 | PN ---
Date of Progress Note: 01/09/2021 Chief Complaint: End-stage renal disease, on dialysis. History Of Present Illness: The patient is admitted to the hospital because of generalized weakness and hypoglycemia. He has end-stage renal disease, has been dialyzed on TPN via left arm AV graft. Juve butterfield has history of hypertension, diabetes mellitus with diabetic kidney disease, peripheral neuropathy. Review of Systems: Denies fever or chills. Physical Examination: Lungs: Diminished breath sounds at bases. Heart: S1, S2. Abdomen: Soft, benign. Extremities: Edema present in both legs. Impression And Plan: 1.End-stage renal disease. Continue dialysis. Today, the patient will have dialysis with ultrafilt ration. 2.COVID pneumonia per primary team. 3.Hypertension. Continue blood pressure medication. 4.Anemia. Monitor hemoglobin level and adjust MARIKA. 5.Chronic kidney disease, secondary hyperparathyroidism. Continue binders and monitor phosphorus le bubba. ALVA/TREYL Voice ID: [id number] Report ID: [id number]
[2021-01-10] MEDS: HYDRALAZINE HCL 20 MG/ML VIAL IV ONE ×2 (00:11→00:29)
--- NOTE | 2021-01-10 07:45 | P.HP ---
Patient History Date of Service: 01/07/21 Reason for admission: Gen weakness, hypoglycemia History of Present Illness: Patient is a 45-year-old gentleman who came to the hospital with hypoglycemia. He was also incidentally noted to have COVID-19 pneumonia. He was given 1 amp of D50 and his blood sugar stabilize. He also has a history of ESRD on hemodialysis. He will be admitted to the hospital for further evaluation. Also will need to make sure he has arrangements for outpatient hemodialysis. Allergies Penicillins Allergy (Intermediate, Verified 04/27/20 15:35) Rash promethazine [From Phenergan] Allergy (Verified 04/27/20 15:35) Rash - Past Medical/Surgical History Has patient received pneumonia vaccine in the past: Yes Diabetic: Yes -: diabetic -: Ludwigs angina -: Diabetic ketoacidosis -: Renal failure -: Sepsis -: gi tube -: Rt eye sx -: chin sx with wound vac - Family History Mother History Unknown: Yes Medical History: Hypertension - Social History Alcohol use: No CD- Drugs: No Caffeine use: No Review of Systems 10-point ROS is otherwise unremarkable Physical Examination - Vital Signs Temperature: 97.0 F Blood Pressure: 163/96 Pulse: 80 Respirations: 18 Pulse Ox (%): 97 - Physical Exam General: Alert, In no apparent distress, Confused HEENT: Atraumatic, PERRLA, Mucous membr. moist/pink, EOMI, Sclerae nonicteric Neck: Supple, 2+ carotid pulse no bruit, No LAD, Without JVD or thyroid abnormality Respiratory: Clear to auscultation bilaterally, Normal air movement Cardiovascular: Regular rate/rhythm, Normal S1 S2, No murmurs Gastrointestinal: Normal bowel sounds, Soft and benign, Non-distended, No tenderness Musculoskeletal: No clubbing, No tenderness, Swelling Integumentary: No rashes Neurological: Normal gait, Normal speech, Normal tone, Normal affect, Abnormal strength Lymphatics: No axilla or inguinal lymphadenopathy Other Physical/Emotional Findings: physical examination not done due to covid isolation. - Studies Laboratory Data (last 24 hrs) 01/09/21 11:29: Sodium 131 L, Potassium 4.2, BUN 49 H D, Creatinine 8.08 H* D, Glucose 233 H, Phosphorus 5.8 H, Magnesium 2.4 01/09/21 11:29: WBC 13.80 H, Hgb 11.9 L, Hct 36.3 L, Plt Count 68 L Assessment & Plan - Problems (Diagnosis) (1) Hypoglycemia Current Visit: Yes Status: Acute (2) DM2 (diabetes mellitus, type 2) Current Visit: No Status: Acute Qualifiers: Diabetes mellitus snf insulin use: with snf use Diabetes mellitus complication detail: with polyneuropathy (3) ESRD (end stage renal disease) Current Visit: No Status: Acute (4) HTN (hypertension) Current Visit: No Status: Acute Qualifiers: Hypertension type: essential hypertension Qualified Code(s): I10 - Essential (primary) hypertension (5) Hyperlipidemia Current Visit: No Status: Acute Qualifiers: Hyperlipidemia type: moderate mixed hyperlipidemia not requiring statin therapy Qualified Code(s): E78.2 - Mixed hyperlipidemia - Plan Plan: 1. Continue monitoring blood sugars every 2 hr 2. Hemodialysis per Nephrology; monitor electrolytes 3. Case management consultation for arrangements for outpatient hemodialysis 4. Monitor oxygenation 5. Repeat chest x-ray if symptoms worsen 6. GI and DVT prophylaxis Discharge Plan: Home Plan to discharge in: Greater than 2 days - Advance Directives Does patient have a Living Will: No Does patient have a Durable POA for Healthcare: No - Code Status/Comfort Care Code Status Assessed: Yes Code Status: Full Code Critical Care: No Time Spent Managing PTS Care (In Minutes): 45
--- NOTE | 2021-01-10 07:51 | P.PN ---
Subjective Date of Service: 01/08/21 Mentation has improved. However, Patient still hypoglycemic through the day. Blood sugars are slow to improve. Most likely related to his renal failure. Continue with hemodialysis per Nephrology. Hypoxemia is stable. Actually improved and we are trying get him back to room air. If we are able to get him to room air that he will not need home oxygen at discharge. Review of Systems 10-point ROS is otherwise unremarkable Physical Examination - Vital Signs Temperature: 97.0 F Blood Pressure: 163/96 Pulse: 80 Respirations: 18 Pulse Ox (%): 97 - Physical Exam General: Alert, In no apparent distress, Oriented x3 Respiratory: Clear to auscultation bilaterally, Normal air movement Cardiovascular: Regular rate/rhythm, Normal S1 S2 Gastrointestinal: Normal bowel sounds, No tenderness Musculoskeletal: No tenderness Integumentary: No rashes Neurological: Normal speech, Normal tone, Normal affect Lymphatics: No axilla or inguinal lymphadenopathy Other Physical/Emotional Findings: physical examination not done due to covid isolation. 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 exterminator helper insulin use: with termite exterminator helper use Diabetes mellitus complication detail: with polyneuropathy (3) ESRD (end stage renal disease) Current Visit: No Status: Acute (4) HTN (hypertension) Current Visit: No Status: Acute Qualifiers: Hypertension type: essential hypertension Qualified Code(s): I10 - Essential (primary) hypertension (5) Hyperlipidemia Current Visit: No Status: Acute Qualifiers: Hyperlipidemia type: moderate mixed hyperlipidemia not requiring statin therapy Qualified Code(s): E78.2 - Mixed hyperlipidemia (6) Pneumonia due to COVID-19 virus Current Visit: Yes Status: Acute - Plan Plan: continue with plan of care as mentioned below 1. Continue monitoring blood sugars every 2 hr 2. Hemodialysis per Nephrology; monitor electrolytes 3. Case management consultation for arrangements for outpatient hemodialysis 4. Monitor oxygenation 5. Repeat chest x-ray if symptoms worsen 6. GI and DVT prophylaxis Discharge Plan: Home Plan to discharge in: 48 Hours - Advance Directives Does patient have a Living Will: No Does patient have a Durable POA for Healthcare: No - Code Status/Comfort Care Code Status: Full Code Critical Care: No Time Spent Managing PTS Care (In Minutes): 35
--- NOTE | 2021-01-10 07:53 | P.PN ---
Date of Service: 01/09/21 Subjective Clinical status slightly improved. Blood sugars in stabilize. Patient's respiratory status is somewhat improved. Will keep him on room air today and if he does not worsen then discharge home in the morning. Review of Systems 10-point ROS is otherwise unremarkable Physical Examination - Vital Signs Reviewed - Physical Exam General: Alert, In no apparent distress, Oriented x3 Respiratory: Clear to auscultation bilaterally, Normal air movement Cardiovascular: Regular rate/rhythm, Normal S1 S2 Gastrointestinal: Normal bowel sounds, No tenderness Neurological: Normal speech, Normal tone, Normal affect Assessment & Plan - Problems (Diagnosis) (1) Hypoglycemia Current Visit: Yes Status: Acute (2) DM2 (diabetes mellitus, type 2) Current Visit: No Status: Acute Qualifiers: Diabetes mellitus fdc insulin use: with watermelon inspector use Diabetes mellitus complication detail: with polyneuropathy (3) ESRD (end stage renal disease) Current Visit: No Status: Acute (4) HTN (hypertension) Current Visit: No Status: Acute Qualifiers: Hypertension type: essential hypertension Qualified Code(s): I10 - Essential (primary) hypertension (5) Hyperlipidemia Current Visit: No Status: Acute Qualifiers: Hyperlipidemia type: moderate mixed hyperlipidemia not requiring statin therapy Qualified Code(s): E78.2 - Mixed hyperlipidemia (6) Pneumonia due to COVID-19 virus Current Visit: Yes Status: Acute - Plan Plan: 1. Blood sugars a.c. HS 2. Status post hemodialysis 3. Outpatient hemodialysis at his dialysis center but the time is change to 4:00 p.m. 4. Room air oxygen today 5. Repeat chest x-ray if symptoms worsen 6. GI and DVT prophylaxis
[2021-01-10] MEDS: SODIUM BICARB 325 MG TAB PO SCH (08:15)
[2021-01-10] MEDS: METHYLPREDNISOLONE 125 MG INJ IV SCH (08:16)
[2021-01-10] MEDS: APIXABAN 2.5 MG TABLET PO SCH (08:16)
[2021-01-10] MEDS: carvediloL 6.25 MG TAB PO SCH (08:16)
[2021-01-10] MEDS: INSULIN -REGULAR HUMAN 50 UNIT/0.5 ML ML SQ SCH (08:17)
[2021-01-10 08:18] VITALS: BP 151/78
[2021-01-10] MEDS: FOLBIC 1 TAB PO SCH (08:18)
[2021-01-10 09:37] VITALS: O2SAT 94
[2021-01-10 09:52] VITALS: TEMP 97.2
[2021-01-11 18:41] LABS: HBsAG Nonreactive (Nonreactive)
--- NOTE | 2021-01-25 17:06 | P.DS ---
Discharge Date: 01/10/21 Disposition: ROUTINE DISCHARGE Discharge Condition: GOOD Reason for Admission: Gen weakness, hypoglycemia Consultations: Nephrology - Problems (1) Hypoglycemia Status: Acute (2) DM2 (diabetes mellitus, type 2) Status: Acute Qualifiers: Diabetes mellitus long-term insulin use: with grain elevator operator use Diabetes mellitus complication detail: with polyneuropathy (3) ESRD (end stage renal disease) Status: Acute (4) HTN (hypertension) Status: Acute Qualifiers: Hypertension type: essential hypertension Qualified Code(s): I10 - Essential (primary) hypertension (5) Hyperlipidemia Status: Acute Qualifiers: Hyperlipidemia type: moderate mixed hyperlipidemia not requiring statin therapy Qualified Code(s): E78.2 - Mixed hyperlipidemia (6) Pneumonia due to COVID-19 virus Status: Acute Brief History of Present Illness: Patient is a 45-year-old gentleman who came to the hospital with hypoglycemia. He was also incidentally noted to have COVID-19 pneumonia. He was given 1 amp of D50 and his blood sugar stabilize. He also has a history of ESRD on hemodialysis. He will be admitted to the hospital for further evaluation. Also will need to make sure he has arrangements for outpatient hemodialysis. Hospital Course: Patient blood sugars have been stable. Patient closely she was okay and can be discharged home as he lives with his brother at home. He was advised on monitor his blood sugars much closer. At this time, patient is stable for discharge home. Vital Signs/Physical Exam: Temp Pulse Resp BP Pulse Ox 97.2 F 86 16 151/78 H 96 01/10/21 08:00 01/10/21 08:16 01/10/21 08:00 01/10/21 08:16 01/10/21 08:00 General: Alert, In no apparent distress, Oriented x3 Other Physical/Emotional Findings: physical examination not done due to covid isolation. Laboratory Data at Discharge: WBC 13.80 K/uL (4.3-10.9) H 01/09/21 11:29 Hgb 11.9 g/dL (13.6-17.9) L 01/09/21 11:29 Hct 36.3 % (39.6-49.0) L 01/09/21 11:29 Plt Count 68 K/uL (152-406) L 01/09/21 11:29 Sodium 131 mmol/L (136-145) L 01/09/21 11:29 Potassium 4.2 mmol/L (3.5-5.1) 01/09/21 11:29 BUN 49 mg/dL (7-18) H D 01/09/21 11:29 Creatinine 8.08 mg/dL (0.55-1.3) H* D 01/09/21 11:29 Glucose 233 mg/dL (74-106) H 01/09/21 11:29 Phosphorus 5.8 mg/dL (2.5-4.9) H 01/09/21 11:29 Magnesium 2.4 mg/dL (1.8-2.4) 01/09/21 11:29 Total Bilirubin 0.7 mg/dL (0.2-1.0) 01/08/21 09:54 AST 46 U/L (15-37) H 01/08/21 09:54 ALT 15 U/L (12-78) 01/08/21 09:54 Alkaline Phosphatase 57 U/L (45-117) 01/08/21 09:54 Home Medications: Apixaban [Eliquis *] 2.5 mg PO BID #60 tablet 01/10/21 Na Bicarb Tab [Sodium Bicarb 325 MG Tab*] 1,950 mg PO BID #60 tab 01/10/21 carvediloL [Coreg*] 6.25 mg PO BID #60 tab 01/10/21 Ascorbic Acid [Vitamin C*] 500 mg PO TID #60 tablet 01/21/21 Calcitrol [Rocaltrol*] 0.5 mcg PO Q48H #14 cap 01/21/21 Calcium Carbonate [Tums Regular*] 1,000 mg PO AC #30 tab 01/21/21 Cholecalciferol (Vitamin D3) [Vitamin D 1000 Iu Tab*] 2,000 unit PO DAILY #30 tab 01/21/21 Glucerna Shake [Glucerna*] 237 ml PO BID #60 can 01/21/21 Metoclopramide [Reglan*] 5 mg PO ACHS #60 tab 01/21/21 Midodrine HCl 5 mg PO BID #60 tablet 01/21/21 Thiamine HCl [Vitamin B-1*] 100 mg PO BID #60 tablet 01/21/21 Zinc Sulfate [Zinc Sulfate*] 220 mg PO DAILY #20 cap 01/21/21 levoFLOXacin [Levaquin*] 250 mg PO Q48H #7 tab 01/21/21 predniSONE [Deltasone*] 10 mg PO BID #10 tab 01/21/21 New Medications: carvediloL [Coreg*] 6.25 mg PO BID #60 tab Apixaban [Eliquis *] 2.5 mg PO BID #60 tablet Na Bicarb Tab [Sodium Bicarb 325 MG Tab*] 1,950 mg PO BID #60 tab Physician Discharge Instructions: OK TO DC IV AND DC HOME FOLLOW-UP WITH PRIMARY CARE PROVIDER IN 1-2 WEEKS FOLLOW-UP WITH Nephrology for hemodialysis as scheduled and outpatient clinic IN 1-2 WEEKS RETURN TO THE ER IF symptoms worsen CALL or TEXT DR. GORDILLO AT [phone] IF ANY QUESTIONS REGARDING HOSPITAL STAY. PLEASE CALL THE FLOOR AT [phone] IF ANY MEDICATION OR NURSING QUESTIONS. Diet: Renal Activity: Fall precautions Followup: NONE,NONE [Primary Care Provider] - Time spent managing pt's care (in minutes): 35
== END 2021-01-10 11:45 | disposition home or self-care (01) | DRG 177 ==
LOC: ER 07:16 → ERHOLD 12:33 → 4TH 14:39 → OBSVTOIN 01-09 11:59
PROVIDERS: ADMIT Hospitalist; ATTEND Hospitalist
PROC: 5A1D70Z Performance of Urinary Filtration, Intermittent, Less than 6 Hours Per Day (ICD-10-PCS; principal; 2021-01-09)
PROC: 8E0ZXY6 Isolation (ICD-10-PCS; 2021-01-09)
DX: U07.1 COVID-19 (principal); J12.82 Pneumonia due to coronavirus disease 2019; N18.6 End stage renal disease; I12.0 Hypertensive chronic kidney disease with stage 5 chronic kidney disease or end stage renal disease; N25.81 Secondary hyperparathyroidism of renal origin; E11.649 Type 2 diabetes mellitus with hypoglycemia without coma; E11.22 Type 2 diabetes mellitus with diabetic chronic kidney disease; E11.42 Type 2 diabetes mellitus with diabetic polyneuropathy; D64.9 Anemia, unspecified; E78.2 Mixed hyperlipidemia; K21.9 Gastro-esophageal reflux disease without esophagitis; Z88.0 Allergy status to penicillin; Z88.8 Allergy status to other drugs, medicaments and biological substances; Z79.82 Long term (current) use of aspirin; Z99.2 Dependence on renal dialysis; Z79.4 Long term (current) use of insulin; Z79.899 Other long term (current) drug therapy; Z95.828 Presence of other vascular implants and grafts
CPT/HCPCS: 0240U; 36415; 71045; 80048; 80053; 82728; 82947; 83036; 83735; 83880; 84100; 84145; 85025; 85379; 86140; 86317; 87040; 87340; 90935; 93005; 96374; 96375; 99285; G0257; G0378; J0360; J1644; J2270; J2405; J2930

== ENCOUNTER 2021-01-14 12:08 | Inpatient (IN) | payer BC ==
--- OUTSIDE RECORDS SUMMARY | 2021-01-14 12:13 | XMS REPORT | Continuity of Care Document ---
:[address] [facility] t Address [address] [place] [address] Dr. Lucas. [address] [place] [address] Care Team Providers Name Role Phone Sharpless Primary Care Physician Unavailable Doctor Unassigned, [place] Attending Clinician Unavailable Guero Torres MD Attending Clinician Scot DALTON Attending Clinician Singer RICHARD Attending Clinician Rolando DALTON Attending Clinician Denis DALTON Attending Clinician Keith DALTON Attending Clinician Paulo Martin DO Attending Clinician Tasneem MORENO Attending Clinician Amandeep Jara MD Attending Clinician [phone] LUCRECIA RENEE Attending Clinician Unavailable Scot DALTON Admitting Clinician Rolando DALTON Admitting Clinician Keith DALTON Admitting Clinician Tasneem MORENO Admitting Clinician Amandeep Jara MD Admitting Clinician [phone] LUCRECIA RENEE Admitting Clinician Unavailable Problems Condition [...] kes - on on 00:00: Medical 00 [place] DKA DKA Disease Active [facility] (diabetic [...] t [facility]17 [facility] 00 [place] Allergies, Adverse Reactions, Alerts Allergy Allergy Status Severity Reaction(s) Onset Inactive Treating Comm ents Source Name Type Date Date Clinician Penicill Drug Active [facility] ins Allergy 3-17 [facility] 00:[facility]: Medical 00 [place] Social History Social Habit Start Date Stop Date Quantity Comments Source Sex Assigned At [facility] Smoking Status Start Date Stop Date Source Never smoker [facility] edical [place] Medications Ordered Filled Start Stop Current Ordering Indication Dosage Frequency Signature Comments Components Source Medication Medication Date Date Medication? Clinician (SIG) Name Name amLODIPine Yes 10mg QD Take [address] (NORVASC) 3-23 by mouth [facility] - 10 MG 19:11: daily. Medical tablet 22 [place] aspirin 81 Yes 81mg QD Take [address] MG chewable 3-23 by mouth [facility] - tablet 19:11: daily. Medical [address] [place] [address] calcium Yes 1{tbl} Q.[id number] Take [address] [facility] [address] carbonate 3-23 [id number] tablet by [facility] - (TUMS) 500 19:11: 3D mouth 3 Medi maddie mg chewable 22 (three) Cente r tablet times daily. doxazosin 2016- Yes 2mg QD Take [address] [facility] (CARDURA) 2 3-23 by mouth [facility] - MG tablet 19:11: nightly. Medi maddie 22 Center famotidine Yes 20mg Q.5D Take [address] (PEPCID) 20 3-23 by mouth 2 Radha kes - MG tablet 19:11: (two) Medical 22 times Center daily. meclizine Yes 25mg QD [...] ID 2020-10-08 2020-10-08 Orders Doctor ALVAREZ 1.2.840.114 [id number] 00:00:00 00:00:00 Only Unassigned, TISHA [id number] [place] [facility] 4.2.7.2.686 [phone] [id number] 2019-10-02 2019-10-02 Orders Doctor ANTONIO 1.2.840.114 [id number] 00:00:00 00:00:00 Only Unassigned, TISHA [id number] [place] [facility] 4.2.7.2.686 [id number] [id number] 2019-06-05 2019-06-06 Emergency Nancy Torres [facility] [[email or web address]] 1.2.840 .114 [id number] 07:59:43 14:59:00 Mak Ellison [id number] [place] [id number] [place] [address] [id number] 081 2019-06-01 2019-06-01 Emergency Luca Jackson [facility] [[email or web address]] 1.2.840. 114 [id number] 06:56:22 17:52:00 Jesus Marshall [id number] [place] 4.2.7.2.686 [place] [address] [id number] 082019-05-28 2019-05-28 Emergency Andrey Barrios [facility] [[email or web address]] 1.2.840. 114 [id number] 07:49:46 20:40:00 Jesus Marshall [id number] [place] [id number] [place] [address] [id number] 2019-05-24 2019-05-24 Emergency Andrey Barrios [facility] [[email or web address]] 1.2.840. 114 [id number] 07:36:09 16:15:00 James Parker [id number] [place] [id number] [place] [address] [id number] [id number] 2019-05-20 2019-05-20 Emergency Flower Martin [facility] [[email or web address]] 1.2.8 40.114 [id number] 07:34:17 19:50:00 James Parker [id number] [place] 4.2.7.2.686 [place] [address] [id number] 2019-05-15 2019-05-15 Emergency Luca Jackson [facility] [[email or web address]] 1.2.840. 114 [id number] 07:17:11 18:48:00 Jesus Marshall [id number] [place] 4.2.7.2.686 [place] [address] [id number] 2019-05-09 2019-05-11 Emergency Nancy Torres [facility] [[email or web address]] 1.2.840 .114 [id number] 07:23:22 15:03:00 Jesus Marshall [id number] [place] 4.2.7.2.686 [place] [address] [id number] [facility] 2019-05-07 2019-05-07 Emergency Denis [facility] [[email or web address]] 1.2.993.788 [id number] 06:36:08 08:19:00 Andrey Castrejon 350.1.13.10 [place] 4.2.7.2.686 [place] [address] [id number] [facility] 2019-05-03 2019-05-03 Emergency DenisAndrey [facility] [[email or web address]] 1.2.840. 114 [id number] 07:04:51 19:40:00 Caleb Boateng [id number] [place] 4.2.7.2.686 [place] [id number] [facility] 2019-04-29 2019-04-29 Emergency Nancy Torres [facility] [[email or web address]] 1.2.840 .114 [id number] 06:03:54 16:18:00 Luly Jara 350.1.13.10 [place] 4.2.7.2.686 [place] [address] [id number] [facility] 2019-04-24 2019-04-24 Emergency Flower Martin Paulo [facility] [[email or web address]] 1.2.8 40.114 [id number] 07:32:53 17:15:00 Mak Ellison 350.1.13.10 [place] 4.2.7.2.686 [place] [address] [id number] 0 2019-04-20 2019-04-20 Emergency DenisAndrey [facility] [[email or web address]] 1.2.840. 114 [id number] 07:35:56 21:13:00 Mak Ellison 350.1.13.10 [place] 4.2.7.2.686 [place] [address] [id number] [facility] 2019-04-15 2019-04-15 Emergency DenisAndrey [facility] [[email or web address]] 1.2.840. 114 [id number] 06:12:02 17:50:00 Movva, Caleb [place] 350.1.13.10 [place] 4.2.7.2.686 [place] [phone] 081 Results Test Description Test Time Test Comments Results Result Comments Source BLOOD CULTURE 2016-12-09 11:00:00 Test Item Value Reference Range Interpretation Comme nts CULTURE ([facility]) (test code = 1095) No growth in 5 days BLOOD [id number] 11:00:00 Test Item Value Reference Range Interpretation Comments CULTURE ([facility]) (test No growth in 5 days code = 1095) ISLET CELL AB [id number] 09:29:00 Test Item Value Reference Range Interpretation Comments ISLET CELL AB See individual AUTOVERIFICATION (test panel test results. code = 2556) POCT-GLUCOSE [id number] 17:52:00 Test Item Value Reference Range Interpretation Comments POC-GLUCOSE METER 360 mg/dL 70-110 H TESTED AT [place] [address] ([facility]) (test code = [facility] 1538) [address] CLOSTRIDIUM DIFFICILE TOXIN [id number] 14:10:00 Test Item Value Reference Range Interpretation Comments CLOSTRIDIUM DIFFICILE TOXIN, PCR Not Detected Not Detected ([facility]) (test code = 1525) This [...] of a positive result is not recommended.POCT-GLUCOSE [id number] 13:02:00 Test Item Value Reference Range Interpretation Comments POC-GLUCOSE METER 265 mg/dL 70-[address] [facility] ([facility]) (test code = [facility] 1538) [address] POCT-GLUCOSE [id number] 07:13:00 Test Item Value Reference Range Interpretation Comments POC-GLUCOSE METER 70 mg/dL 70-110 TESTED AT [place] [id number] ([facility]) (test code = HAL Mai [facility] [address] 1538) VANCOMYCIN LEVEL, [id number] 06:54:00 Test Item Value Reference Range Interpretation Comments VANCOMYCIN RANDOM (BEAKER) (test 15.2 ug/mL code = 523) Reference Range: No NormalsBASIC METABOLIC [id number] 06:41:00 Test Item Value Reference Range Interpretation [...] NOT APPLICABLE FOR DIALYSIS PATIEN TS. POCT-GLUCOSE [id number] 06:40:00 Test Item Value Reference Range Interpretation Comments POC-GLUCOSE METER 44 mg/dL 70-110 L Notified R Manny DALTON/[facility] AT [facility] (test code = [place] [id number] MIGUEL 1538) [facility] 7703 0 POCT-GLUCOSE [id number] 06:36:00 Test Item Value Reference Range Interpretation Comments POC-GLUCOSE METER 54 mg/dL 70-110 L Notified R Manny DALTON/[facility] (test code = [place] [address] [place] 1538) [facility] 7703 0 BASIC METABOLIC [id number] 06:35:00 Test Item Value Reference Range Interpretation [...] NOT APPLICABLE FOR DIALYSIS PATIEN TS. POCT-GLUCOSE [id number] 21:14:00 Test Item Value Reference Range Interpretation Comments POC-GLUCOSE METER 396 mg/dL 70-110 H Notified R Manny MD/TESTED (BEAKER) (test code = AT [place] [address]) [facility] 7703 0 POCT-GLUCOSE [id number] 18:02:00 Test Item Value Reference Range Interpretation Comments POC-GLUCOSE METER 363 mg/dL 70-110 H Notified R Manny DALTON/TESTED (BEAKER) (test code = AT [place] [id number] [place] [address]) [facility] 7703 0 BLOOD [id number] 18:00:00 Test Item Value Reference Range Interpretation Comments CULTURE (BEAKER) (test No growth in 5 days code = 1095) BLOOD [id number] 18:00:00 Test Item Value Reference Range Interpretation Comments CULTURE (BEAKER) (test No growth in 5 days code = 1095) POCT-GLUCOSE [id number] 13:08:00 Test Item Value Reference Range Interpretation Comments POC-GLUCOSE METER 188 mg/dL 70-110 H TESTED AT [place] [address] (BEAKER) (test code = [place] [address]) [address] POCT-GLUCOSE [id number] 11:42:00 Test Item Value Reference Range Interpretation Comments POC-GLUCOSE METER 194 mg/dL 70-[address] [facility] ([facility]) (test code = HAL [place] 1538) [address] VANCOMYCIN LEVEL, [id number] 09:58:00 Test Item Value Reference Range Interpretation Comments VANCOMYCIN RANDOM (BEAKER) (test 12.9 ug/mL code = 523) Reference Range: No NormalsTo be drawn BEFORE dialysis in the dialysis unit. Thank youPOCT-GLUCOSE [id number] 08:52:00 Test Item Value Reference Range Interpretation Comments POC-GLUCOSE METER 272 mg/dL 70-[address] [facility] [address] ([facility]) (test code = [facility] Pau [facility] 1538) [address] BASIC METABOLIC [id number] 05:09:00 Test Item Value Reference Range Interpretation [...] NOT APPLICABLE FOR DIALYSIS PATIEN TS. POCT-GLUCOSE [id number] 21:32:00 Test Item Value Reference Range Interpretation Comments POC-GLUCOSE METER 388 mg/dL 70-[address] [facility] (test code = [facility]au [facility] 1538) [address] POCT-GLUCOSE [id number] 18:31:00 Test Item Value Reference Range Interpretation Comments POC-GLUCOSE METER 247 mg/dL 70-[address] [facility] (BEAKER) (test code = [place] 1538) [address] POCT-GLUCOSE [id number] 10:58:00 Test Item Value Reference Range Interpretation Comments POC-GLUCOSE METER 213 mg/dL 70-[address] [facility] (BEAKER) (test code = [place] 1538) [address] CBC W/PLT COUNT & AUTO [id number] 07:02:00 Test Item Value Reference Range Interpretation [...] 0.00-0.20 (test code = 417) 0.00BASIC METABOLIC [id number] 06:25:00 Test Item Value Reference Range Interpretation [...] S NOT APPLICABLE FOR DIALYSIS PATIEN TS. [id number] 06:24:00 Test Item Value Reference Range Interpretation Comments PHOSPHORUS (BEAKER) (test code = 3.8 mg/dL 2.3-4.7 604) [id number] 06:24:00 Test Item Value Reference Range Interpretation Comments MAGNESIUM (BEAKER) (test code = 2.2 mg/dL 1.6-2.6 627) POCT-GLUCOSE [id number] 21:55:00 Test Item Value Reference Range Interpretation Comments POC-GLUCOSE METER 270 mg/dL 70-[address] [facility] (BEAKER) (test code = [place] [facility] 1538) [address] POCT-GLUCOSE [id number] 18:12:00 Test Item Value Reference Range Interpretation Comments POC-GLUCOSE METER 124 mg/dL 70-110 H TESTED AT [place] [address] ([facility]) (test code = [place] [facility] 1538) [address] POCT-GLUCOSE [id number] 16:27:00 Test Item Value Reference Range Interpretation Comments POC-GLUCOSE METER 135 mg/dL 70-110 H TESTED AT [place] [address] ([facility]) (test code = [facility] 1538) [address]69 POCT-GLUCOSE [id number] 14:10:00 Test Item Value Reference Range Interpretation Comments POC-GLUCOSE METER 219 mg/dL 70-110 H TESTED AT [place] [address] ([facility]) (test code = [facility] 1538) [address] POCT-GLUCOSE [id number] 12:01:00 Test Item Value Reference Range Interpretation Comments POC-GLUCOSE METER 162 mg/dL 70-110 H TESTED AT [place] [address] ([facility]) (test code = [facility] 1538) [address] POCT-GLUCOSE [id number] 09:51:00 Test Item Value Reference Range Interpretation Comments POC-GLUCOSE METER 220 mg/dL 70-110 H TESTED AT [place] [address] ([facility]) (test code = [facility] 1538) [address] POCT-GLUCOSE [id number] 07:48:00 Test Item Value Reference Range Interpretation Comments POC-GLUCOSE METER 151 mg/dL 70-110 H TESTED AT [place] [address] ([facility]) (test code = [facility] 1538) [address] BASIC METABOLIC [id number] 07:36:00 Test Item Value Reference Range Interpretation [...] 8.4-10.2 L (test code = 697) EGFR ([facility]) (test 7 mL/min/1.73 ESTIMAT ED GFR IS code = 1092) sq m NOT ACCURATE CREATININE CLEARANCE IN PREDICTING GLOMERULAR FILTRATION RATE . ESTIMATED GFR I S NOT APPLICABLE FOR DIALYSIS PATIEN TS. POCT-GLUCOSE [id number] 07:06:00 Test Item Value Reference Range Interpretation Comments POC-GLUCOSE METER 98 mg/dL 70-110 TESTED AT [place] [address] ([facility]) (test code = [facility] [address] 1538) POCT-GLUCOSE [id number] 06:27:00 Test Item Value Reference Range Interpretation Comments POC-GLUCOSE METER 63 mg/dL 70-110 L TESTED AT [place] [address] ([facility]) (test code = [facility] [address] 1538) VANCOMYCIN LEVEL, [id number] 04:31:00 Test Item Value Reference Range Interpretation Comments VANCOMYCIN RANDOM ([facility]) (test 20.8 ug/mL code = 523) Reference Range: No [id number] 04:20:00 Test Item Value Reference Range Interpretation Comments PHOSPHORUS (BEAKER) (test code = 5.4 mg/dL 2.3-4.7 H 604) [id number] 04:20:00 Test Item Value Reference Range Interpretation Comments MAGNESIUM (BEAKER) (test code = 2.1 mg/dL 1.6-2.6 627) POCT-GLUCOSE [id number] 04:16:00 Test Item Value Reference Range Interpretation Comments POC-GLUCOSE METER 99 mg/dL 70-110 TESTED AT [place] [address] ([facility]) (test code = [facility] [address] 1538) CBC W/PLT COUNT & AUTO [id number] 04:07:00 Test Item Value Reference Range Interpretation Comments WHITE BLOOD CELL COUNT ([facility]) 7.4 K/ L 4.0-10.0 (test code = [...] L 0.00-0.20 (test code = 417) 0.00POCT-GLUCOSE [id number] 02:10:00 Test Item Value Reference Range Interpretation Comments POC-GLUCOSE METER 132 mg/dL 70-[address] [facility] (BEAKER) (test code = [facility] 1538) [address] SPUTUM CULTURE + GRAM [id number] 00:32:00 Test Item Value Reference Range Interpretation Comments CULTURE (BEAKER) 4+ Normal respiratory (test code = 1095) jenelle present GRAM STAIN RESULT 3+ White blood cells (BEAKER) (test code = seen 1123) GRAM STAIN RESULT 0-5 epithelial cells (BEAKER) (test code = 49434) GRAM STAIN RESULT 2+ gram negative rods (BEAKER) (test code = 71305) GRAM STAIN RESULT 3+ gram positive rods (BEAKER) (test code = 450994) GRAM STAIN RESULT 2+ gram positive cocci (BEAKER) (test code = in pairs and clusters 483273) POCT-GLUCOSE [id number] 00:15:00 Test Item Value Reference Range Interpretation Comments POC-GLUCOSE METER 193 mg/dL 70-110 H TESTED AT [place] [address] ([facility] (test code = [facility] 1538) [address] POCT-GLUCOSE [id number] 22:22:00 Test Item Value Reference Range Interpretation Comments POC-GLUCOSE METER 170 mg/dL 70-110 H TESTED AT [place] [address] ([facility] (test code = [facility] 1538) 89857 POCT-GLUCOSE [id number] 20:17:00 Test Item Value Reference Range Interpretation Comments POC-GLUCOSE METER 179 mg/dL 70-110 H TESTED AT [place] [address] (BEAKER) (test code = [facility] 1538) 52182 BASIC METABOLIC [id number] 19:00:00 Test Item Value Reference Range Interpretation [...] H (BEAKER) (test code = 652) CALCIUM ([facility]) 8.2 mg/dL 8.4-10.2 L (test code = 697) EGFR ([facility]) (test 8 mL/min/1.73 ESTIMAT ED GFR IS code = 1092) sq m NOT ACCURATE CREATININE CLEARANCE IN PREDICTING GLOMERULAR FILTRATION RATE . ESTIMATED GFR I S NOT APPLICABLE FOR DIALYSIS PATIEN TS. POCT-GLUCOSE [id number] 18:27:00 Test Item Value Reference Range Interpretation Comments POC-GLUCOSE METER 150 mg/dL 70-110 H TESTED AT [place] [address] ([facility]) (test code = [place] 1538) [address] POCT-GLUCOSE [id number] 15:58:00 Test Item Value Reference Range Interpretation Comments POC-GLUCOSE METER 219 mg/dL 70-110 H TESTED AT [place] [address] ([facility]) (test code = [place] 1538) [address] POCT-GLUCOSE [id number] 14:26:00 Test Item Value Reference Range Interpretation Comments POC-GLUCOSE METER 212 mg/dL 70-110 H TESTED AT [place] [address] ([facility]) (test code = [place] 1538) [address] POCT-GLUCOSE [id number] 12:23:00 Test Item Value Reference Range Interpretation Comments POC-GLUCOSE METER 261 mg/dL 70-110 H TESTED AT [place] [address] ([facility]) (test code = [place] 1538) [address] POCT-GLUCOSE [id number] 10:19:00 Test Item Value Reference Range Interpretation Comments POC-GLUCOSE METER 323 mg/dL 70-110 H TESTED AT [place] [address] ([facility]) (test code = [place] 1538) [address] POCT-GLUCOSE [id number] 08:24:00 Test Item Value Reference Range Interpretation Comments POC-GLUCOSE METER 235 mg/dL 70-110 H TESTED AT [place] [address] ([facility]) (test code = [place] 1538) [address] POCT-GLUCOSE [id number] 07:10:00 Test Item Value Reference Range Interpretation Comments POC-GLUCOSE METER 244 mg/dL 70-110 H TESTED AT [place] [address] ([facility]) (test code = [place] 1538) [address] POCT-GLUCOSE [id number] 06:15:00 Test Item Value Reference Range Interpretation Comments POC-GLUCOSE METER 249 mg/dL 70-[address] [facility] (BEAKER) (test code = HAL [place] [facility] 1538) 8[address] CBC W/PLT COUNT & AUTO [id number] 06:05:00 Test Item Value Reference Range Interpretation [...] 0.00-0.20 (test code = 417) 0.00BASIC METABOLIC [id number] 05:11:00 Test Item Value Reference Range Interpretation [...] S NOT APPLICABLE FOR DIALYSIS PATIEN TS. [id number] 05:05:00 Test Item Value Reference Range Interpretation Comments MAGNESIUM (BEAKER) 2.3 mg/dL 1.6-2.6 Specimen slightly (test code = 627) hemolyzed [id number] 05:05:00 Test Item Value Reference Range Interpretation Comments PHOSPHORUS (BEAKER) 5.9 mg/dL 2.3-4.7 H Specimen slightly (test code = 604) hemolyzed POCT-GLUCOSE [id number] 04:02:00 Test Item Value Reference Range Interpretation Comments POC-GLUCOSE METER 187 mg/dL 70-[address] [facility] (BEAKER) (test code = [place] 1538) [address] POCT-GLUCOSE [id number] 02:22:00 Test Item Value Reference Range Interpretation Comments POC-GLUCOSE METER 163 mg/dL 70-110 H TESTED AT [place] [address] ([facility] (test code = [place] [facility] 1538) [address] POCT-GLUCOSE [id number] 00:54:00 Test Item Value Reference Range Interpretation Comments POC-GLUCOSE METER 239 mg/dL 70-110 H TESTED AT [place] [address] ([facility]) (test code = HAL Mai [facility] 1538) [address]69 POCT-GLUCOSE [id number] 00:11:00 Test Item Value Reference Range Interpretation Comments POC-GLUCOSE METER 29 mg/dL 70-110 LL TESTED AT [place] [address] ([facility]) (test code = [facility] Pau [facility] [address] 1538) POCT-GLUCOSE [id number] 21:35:00 Test Item Value Reference Range Interpretation Comments POC-GLUCOSE METER 100 mg/dL 70-110 TESTED AT [place] [address] ([facility]) (test code = [facility] 1538) [address]698 POCT-GLUCOSE [id number] 20:24:00 Test Item Value Reference Range Interpretation Comments POC-GLUCOSE METER 57 mg/dL 70-110 L TESTED AT [place] [address] ([facility]) (test code = [facility] [address] 1538) BASIC METABOLIC [id number] 18:11:00 Test Item Value Reference Range Interpretation [...] NOT APPLICABLE FOR DIALYSIS PATIEN TS. POCT-GLUCOSE [id number] 17:33:00 Test Item Value Reference Range Interpretation Comments POC-GLUCOSE METER 87 mg/dL 70-110 TESTED AT [place] [address] ([facility]) (test code = [facility] Pau [facility] [address] 1538) POCT-GLUCOSE [id number] 17:33:00 Test Item Value Reference Range Interpretation Comments POC-GLUCOSE METER 54 mg/dL 70-110 L Notified Pau Bryant MD/TESTED AT ([facility]) (test code = [address] 1538) [facility] 7703 0 POCT-GLUCOSE [id number] 14:05:00 Test Item Value Reference Range Interpretation Comments POC-GLUCOSE METER 159 mg/dL 70-110 H TESTED AT [place] [address] ([facility]) (test code = [facility] 1538) [address]692 POCT-GLUCOSE [id number] 12:26:00 Test Item Value Reference Range Interpretation Comments POC-GLUCOSE METER 247 mg/dL 70-110 H TESTED AT [place] [address] ([facility]) (test code = [facility] 1538) [id number] BASIC METABOLIC [id number] 11:20:00 Test Item Value Reference Range Interpretation [...] S NOT APPLICABLE FOR DIALYSIS PATIEN TS. CBC W/PLT COUNT & AUTO [id number] 11:14:00 Test Item Value Reference Range Interpretation [...] K/ L 0.00-0.20 (test code = 417) [id number] 11:14:00 Test Item Value Reference Range Interpretation Comments MAGNESIUM (BEAKER) (test code = 2.2 mg/dL 1.6-2.6 627) POCT-GLUCOSE [id number] 10:17:00 Test Item Value Reference Range Interpretation Comments POC-GLUCOSE METER 172 mg/dL 70-[address] [facility] [address] (BEAKER) (test code = [facility] 1538) [address] POCT-GLUCOSE [id number] 10:17:00 Test Item Value Reference Range Interpretation Comments POC-GLUCOSE METER 167 mg/dL 70-[address] [facility] [address] (BEAKER) (test code = [facility] 1538) [id number] POCT-GLUCOSE [id number] 10:17:00 Test Item Value Reference Range Interpretation Comments POC-GLUCOSE METER 176 mg/dL 70-[address] [facility] [address] (BEAKER) (test code = [facility] 1538) [address] [id number] 08:17:00 Test Item Value Reference Range Interpretation [...] L (test code = 2590) VANCOMYCIN LEVEL, [id number] 06:52:00 Test Item Value Reference Range Interpretation Comments VANCOMYCIN RANDOM (BEAKER) (test 12.8 ug/mL code = 523) Reference Range: No NormalsHold further dosing for vancomycin level > 20, alert and RphPOCT-GLUCOSE [id number] 06:16:00 Test Item Value Reference Range Interpretation Comments POC-GLUCOSE METER 179 mg/dL 70-[address] [facility] ([facility]) (test code = [facility] 1538) [address] POCT-GLUCOSE [id number] 05:08:00 Test Item Value Reference Range Interpretation Comments POC-GLUCOSE METER 185 mg/dL 70-[address] [facility] ([facility]) (test code = [facility] 1538) [address] PTH, [id number] 05:01:00 Test Item Value Reference Range Interpretation Comments PARATHYROID HORMONE INTACT 114.5 pg/mL 8.5-72.5 H ([facility]) (test code = 577) Effective 08/05/2014: Reference Range ChangeNew: 8.5-72.5 Previous: 15.0-90.0 BASIC METABOLIC [id number] 04:53:00 Test Item Value Reference Range Interpretation [...] S NOT APPLICABLE FOR DIALYSIS PATIEN TS. [id number] 04:52:00 Test Item Value Reference Range Interpretation Comments PHOSPHORUS (BEAKER) (test code = 3.4 mg/dL 2.3-4.7 604) POCT-GLUCOSE [id number] 04:18:00 Test Item Value Reference Range Interpretation Comments POC-GLUCOSE METER 134 mg/dL 70-[address] [facility] (BEAKER) (test code = HAL Mai [place] 1538) [address] POCT-GLUCOSE [id number] 03:10:00 Test Item Value Reference Range Interpretation Comments POC-GLUCOSE METER 161 mg/dL 70-[address] [facility] (BEAKER) (test code = MAIDADC Pau [place] 1538) [address] POCT-GLUCOSE [id number] 02:13:00 Test Item Value Reference Range Interpretation Comments POC-GLUCOSE METER 173 mg/dL 70-[address] [facility] (BEAKER) (test code = [facility] 1538) [address] BASIC METABOLIC [id number] 01:40:00 Test Item Value Reference Range Interpretation [...] NOT APPLICABLE FOR DIALYSIS PATIEN TS. POCT-GLUCOSE [id number] 01:10:00 Test Item Value Reference Range Interpretation Comments POC-GLUCOSE METER 114 mg/dL 70-110 H TESTED AT [place] [address] ([facility]) ([facility] 1538) [address] POCT-GLUCOSE [id number] 00:44:00 Test Item Value Reference Range Interpretation Comments POC-GLUCOSE METER 152 mg/dL 70-110 H TESTED AT [place] [address] ([facility]) ([facility] 1538) [address] POCT-GLUCOSE [id number] 23:07:00 Test Item Value Reference Range Interpretation Comments POC-GLUCOSE METER 162 mg/dL 70-110 H TESTED AT [place] [address] ([facility]) (test code = [facility] Pau [facility] 1538) [address] POCT-GLUCOSE [id number] 22:12:00 Test Item Value Reference Range Interpretation Comments POC-GLUCOSE METER 115 mg/dL 70-110 H TESTED AT [place] [address] ([facility]) (test code = [facility] P[facility] 1538) [address] POCT-GLUCOSE [id number] 21:20:00 Test Item Value Reference Range Interpretation Comments POC-GLUCOSE METER 88 mg/dL 70-110 TESTED AT [place] [address] ([facility]) (test code = [facility] Pau [facility] [address] 1538) POCT-GLUCOSE [id number] 20:10:00 Test Item Value Reference Range Interpretation Comments POC-GLUCOSE METER 109 mg/dL 70-110 TESTED AT [place] [address] ([facility]) (test code = [facility] P[facility] 1538) [address]25 HEPATITIS B SURFACE [id number] 19:53:00 Test Item Value Reference Range Interpretation Comments HEPATITIS B SURFACE ANTIGEN (2) Nonreactive Nonreactive (BEAKER) (test code = 2585) BASIC METABOLIC [id number] 19:35:00 Test Item Value Reference Range Interpretation [...] NOT APPLICABLE FOR DIALYSIS PATIEN TS. POCT-GLUCOSE [id number] 19:14:00 Test Item Value Reference Range Interpretation Comments POC-GLUCOSE METER 179 mg/dL 70-[address] [facility] (BEAKER) (test code = [facility] 1538) [address]65 POCT-GLUCOSE [id number] 17:57:00 Test Item Value Reference Range Interpretation Comments POC-GLUCOSE METER 173 mg/dL 70-[address] [facility] (test code = [facility] 1538) [address] BASIC METABOLIC [id number] 16:42:00 Test Item Value Reference Range Interpretation [...] NOT APPLICABLE FOR DIALYSIS PATIEN TS. POCT-GLUCOSE [id number] 15:59:00 Test Item Value Reference Range Interpretation Comments POC-GLUCOSE METER 289 mg/dL 70-110 H TESTED AT [place] [address] (BEAKER) (test code = HAL [place] 1538) [address] POCT-GLUCOSE [id number] 15:23:00 Test Item Value Reference Range Interpretation Comments POC-GLUCOSE METER 296 mg/dL 70-110 H TESTED AT [place] [address] (BEAKER) (test code = HAL [place] 1538) [address] POCT-GLUCOSE [id number] 15:23:00 Test Item Value Reference Range Interpretation Comments POC-GLUCOSE METER 342 mg/dL 70-110 H TESTED AT [place] [address] (BEAKER) (test code = HAL [place] 1538) [address] BASIC METABOLIC [id number] 12:33:00 Test Item Value Reference Range Interpretation [...] NOT APPLICABLE FOR DIALYSIS PATIEN TS. POCT-GLUCOSE [id number] 12:23:00 Test Item Value Reference Range Interpretation Comments POC-GLUCOSE METER 231 mg/dL 70-110 H TESTED AT [place] [id number] (BEAKER) (test code = HAL Mai [place] 1538) [address] HEMOGLOBIN [id number] 11:38:00 Test Item Value Reference Range Interpretation Comments HEMOGLOBIN A1C (BEAKER) (test code = 9.9 % 4.3-6.1 H 368) POCT-GLUCOSE [id number] 11:09:00 Test Item Value Reference Range Interpretation Comments POC-GLUCOSE METER 212 mg/dL 70-110 H TESTED AT [place] [address] ([facility]) (test code = [place] 1538) [address] BASIC METABOLIC [id number] 10:52:00 Test Item Value Reference Range Interpretation [...] S NOT APPLICABLE FOR DIALYSIS PATIEN TS. [id number] 10:31:00 Test Item Value Reference Range Interpretation Comments MAGNESIUM (BEAKER) (test code = 2.4 mg/dL 1.6-2.6 627) POCT-GLUCOSE [id number] 10:17:00 Test Item Value Reference Range Interpretation Comments POC-GLUCOSE METER 202 mg/dL 70-[address] [facility] ([facility]) (test code = [place] 1538) [address] TROPONIN [id number] 10:16:00 Test Item Value Reference Range Interpretation [...] acute neurological disease, and persistent tachyarrhythmia.BLOOD GAS, [id number] 09:27:00 Test Item Value Reference Range Interpretation [...] (test code = 1819) 21.0 % POCT-GLUCOSE [id number] 09:19:00 Test Item Value Reference Range Interpretation Comments POC-GLUCOSE METER 179 mg/dL 70-[address] [facility] (BEAKER) (test code = HAL [place] 1538) [address] LACTIC ACID, VENOUS, WHOLE [id number] 09:13:00 Test Item Value Reference Range Interpretation Comments LACTATE BLOOD VENOUS (2) (BEAKER) 1.5 mmol/L 0.5-2.2 (test code = 2872) Effective 01/20/2016: Units/Reference Range ChangeNew: 0.5-2.2 mmol/L Previous: 5-20 mg/dLKETONE, [id number] 08:51:00 Test Item Value Reference Range Interpretation Comments KETONES, BLOOD (BEAKER) (test code 0.0 mmol/L <0.4 = 1103) POCT-GLUCOSE [id number] 08:08:00 Test Item Value Reference Range Interpretation Comments POC-GLUCOSE METER 211 mg/dL 70-110 H TESTED AT [place] [id number] (BEAKER) (test code = HAL Mai [facility] 1538) [address] POCT-GLUCOSE [id number] 07:30:00 Test Item Value Reference Range Interpretation Comments POC-GLUCOSE METER 230 mg/dL 70-110 H TESTED AT [place] [id number] [facility] (test code = HAL [place] [facility] 1538) [address] POCT-GLUCOSE [id number] 06:05:00 Test Item Value Reference Range Interpretation Comments POC-GLUCOSE METER 349 mg/dL 70-110 H Notified R Manny DALTON/TESTED (BEAKER) (test code = AT [facility] 67[address] [employer] [facility] 1538) [facility] 7[address] 0 [id number] 05:46:00 Test Item Value Reference Range Interpretation Comments GLUCOSE RANDOM (BEAKER) (test code 472 mg/dL 70-105 HH = 652) Effective 08/05/2014: Reference Range Change-Adult onlyNew: 70-105 Previous: 70-110If last glucose was less than 500, may do bedside glucose instead of serum glucose.[id number] 05:31:00 Test Item Value Reference Range Interpretation Comments POTASSIUM (BEAKER) (test code = 4.8 meq/L 3.5-5.1 379) If last glucose was less than 500, may do bedside glucose instead of serum glucose.KETONE, [id number] 05:16:00 Test Item Value Reference Range Interpretation Comments KETONES, BLOOD (BEAKER) (test code 0.0 mmol/L <0.4 = 1103) POCT-GLUCOSE [id number] 05:00:00 Test Item Value Reference Range Interpretation Comments POC-GLUCOSE METER 456 mg/dL 70-110 HH TESTED AT [place] [address] (BEAKER) (test code = HAL Mai [facility] 1538) [address] POCT-GLUCOSE [id number] 04:08:00 Test Item Value Reference Range Interpretation Comments POC-GLUCOSE METER > mg/dL 70-110 HH OUTSIDE ME ASURING (BEAKER) (test code RANGETES CASANDRA AT [place] [address] = 1538) [facility] [address] [id number] 03:41:00 Test Item Value Reference Range Interpretation Comments GLUCOSE RANDOM (BEAKER) (test code 705 mg/dL 70-105 HH = 652) Effective 08/05/2014: Reference Range Change-Adult onlyNew: 70-105 Previous: 70-110If last glucose was less than 500, may do bedside glucose instead of serum glucose.URINALYSIS W/ REFLEX URINE [id number] 03:02:00 Test Item Value Reference Range Interpretation [...] code = 1584) SOURCE(BEAKER) (test code = 6945) [id number] 02:51:00 Test Item Value Reference Range Interpretation Comments GLUCOSE RANDOM (BEAKER) (test code 684 mg/dL 70-105 HH = 652) Effective 08/05/2014: Reference Range Change-Adult onlyNew: 70-105 Previous: 70-110If last glucose was less than 500, may do bedside glucose instead of serum glucose.COMPREHENSIVE METABOLIC [id number] 02:51:00 Test Item Value Reference Range Interpretation [...] may do bedside glucose instead of serum glucose.[id number] 02:50:00 Test Item Value Reference Range Interpretation Comments THYROID STIMULATING HORMONE 2.15 uIU/mL 0.35-4.94 (BEAKER) (test code = 772) [id number] 02:45:00 Test Item Value Reference Range Interpretation Comments MAGNESIUM (BEAKER) (test code = 2.0 mg/dL 1.6-2.6 627) [id number] 02:45:00 Test Item Value Reference Range Interpretation Comments PHOSPHORUS (BEAKER) (test code = 4.4 mg/dL 2.3-4.7 604) CREATINE KINASE (CK), TOTAL AND [id number] 02:41:00 Test Item Value Reference Range Interpretation Comments CREATINE KINASE TOTAL (BEAKER) 140 U/L 29-200 (test code = 380) CREATINE KINASE-MB (BEAKER) (test 7.2 ng/mL 0.0-6.6 H code = 750) CREATINE KINASE-MB INDEX (BEAKER) 5.1 % (test code = 395) Effective 08/05/2014: CK-MB Reference Range ChangeNew: 0.0-6.6 Previous: 0.0-4.9CK-MB Reference Range:<6.7 Normal6.7-10.0 Borderline>10.0 AbnormalTROPONIN [id number] 02:36:00 Test Item Value Reference Range Interpretation [...] renalfailure, acidosis, acute neurological disease, and persistent tachyarrhythmia.[id number] 02:31:00 Test Item Value Reference Range Interpretation Comments POTASSIUM (BEAKER) (test code = 4.8 meq/L 3.5-5.1 379) If last glucose was less than 500, may do bedside glucose instead of serum glucose.CBC W/PLT COUNT & AUTO [id number] 02:31:00 Test Item Value Reference Range Interpretation [...] 0.00-0.20 (test code = 417) 0.000.640.000.580.000.000.000.00BLOOD GAS, [id number] 02:26:00 Test Item Value Reference Range Interpretation [...] 1819) 30.0 % LACTIC ACID, ARTERIAL, WHOLE [id number] 02:25:00 Test Item Value Reference Range Interpretation Comments LACTATE BLOOD ARTERIAL (2) 4.9 mmol/L 0.5-2.2 H (AKER) (test code = 2874) Effective 01/20/2016: Units/Reference Range ChangeNew: 0.5-2.2 mmol/L Previous: 5-20 mg/dLPOCT-GLUCOSE [id number] 02:18:00 Test Item Value Reference Range Interpretation Comments POC-GLUCOSE METER 493 mg/dL 70-[address] [facility] ([facility]) (test code = [place]AVID [place] 1538) [address] [id number] 02:17:00 Test Item Value Reference Range Interpretation Comments PARTIAL THROMBOPLASTIN TIME 25.3 seconds 22.5-36.0 ([facility]) (test code = 760) PROTHROMBIN TIME/[id number] 02:16:00 Test Item Value Reference Range Interpretation Comments PROTIME ([facility]) (test code = 13.2 seconds 11.7-14.7 759) INR ([facility]) (test code = 370) 1.0 <=5.9 RECOMMENDED COUMADIN/WARFARIN INR THERAPY RANGESSTANDARD DOSE: 2.0 - 3.0 Includes: PROPHYLAXIS forvenous thrombosis, systemic embolization; TREATMENT for venous thrombosis and/or pulmonary embolus.HIGH RISK: Target INR is 2.5-3.5 for patients with mechanical heart valves.
[2021-01-14] MEDS ORDERED: NA CHLORIDE 0.9% 1,000 ML ONE ×3 (13:58→15:36)
[2021-01-14] MEDS ORDERED: INSULIN -REGULAR HUMAN 50 UNIT/0.5 ML ML ONE (13:58)
[2021-01-14 14:00] LABS: Absolute Lymphocytes (CBC) 0.2 K/uL (0.7-4.9); Basophils % 1.8 % (0-1.3); Hematocrit 38.1 % (39.6-49.0); Lymphocytes % 2.1 % (15.3-44.8); MPV 12.4 fL (7.6-11.3); RBC Red Blood Cell Count 3.49 M/uL (4.33-5.43)
[2021-01-14] MEDS ORDERED: INSULIN -REGULAR HUMAN 100 UNIT in NA CHLORIDE 0.9% 100 ML IV SCH ×2 (14:00→21:16)
[2021-01-14 14:04] LABS: Protime INR 1.21
--- NOTE | 2021-01-14 14:10 | RAD REPORT ---
EXAM DESCRIPTION: CT - Chest Abd Pelvis Wo Con - 01/14/2021 1:44 pm CLINICAL HISTORY: AMS COMPARISON: THORAX WO CONTRAST dated 02/24/2015; THORAX WO CONTRAST dated 02/15/2015 TECHNIQUE: Axial 5 millimeter thick images of the chest, abdomen and pelvis were obtained without IV contrast. Oral contrast was administered. All CT scans are performed using dose optimization technique as appropriate and may include automated exposure control or mA/KV adjustment according to patient size. FINDINGS: Motion degradation affects are present throughout the chest, abdomen and pelvis. Peripheral airspace opacities are seen throughout most of each lung field. Interstitial thickening or edema present as well. This is a pattern consistent with a COVID-19 pneumonia. History indicates the patient is COVID positive. Small bilateral pleural effusions are also present. No pneumothorax. No c hest wall mass or abnormal axillary lymphadenopathy seen. Mediastinal and hilar regions show no mass or lymphadenopathy. No significant cardiac finding. The liver, spleen and pancreas show no significant findings for non contrast imaging. Gallbladder is not well visualized due to motion and probable contraction. Biliary tree dilatation is not suspected . No hydronephrosis or suspicious renal mass. Isodense masses and pyelonephritis cannot be excluded on non contrast imaging. No adrenal abnormalities. Urinary bladder is contracted which limits assessmen t. No gastric dilatation. Wall thickening of the duodenum is suspected but difficult to assess due to th e severity of motion. Small bowel and large bowel are not dilated. There is circumferential rectal wa ll thickening and wall thickening in the sigmoid colon. There is stranding and edema in the perirecta l fat. The remainder of the colon is difficult to assess to determine if the patient has localized co litis or a pancolitis. No free air or pneumatosis. Minimal amount of free fluid is present. No hernia, mass or bulky lympha denopathy. No significant bone or vascular finding. Fluid retention is seen in the subcutaneous fatty tissues of the chest, abdomen and upper pelvis. IMPRESSION: Bilateral COVID-19 pneumonia changes are seen moderate in severity with small bilateral pleural effusions. Moderate severity rectosigmoid colitis pattern with possible mild pancolitis in the remainder of the large intestine. Possible duodenitis or duodenal wall thickening. No free air or surgically emergent finding. Fluid retention in the subcutaneous fatty tissues of the chest, abdomen and upper pelvis. CT abdomen and pelvis imaging shows no significant or suspicious finding.
[2021-01-14 14:25] LABS: Blood Gas Oxyhemoglobin 79.5 % (94-97); Blood O2 Saturation 80.5 % (92-98.5)
[2021-01-14] MEDS ORDERED: NA CHLORIDE 0.9% 0 ML ONE (14:25)
[2021-01-14] MEDS ORDERED: Levofloxacin500mg IV 500 MG/100 ML BAG IV ONE (14:25)
[2021-01-14] MEDS ORDERED: VANCOMYCIN 1 GM/VIAL ONE (14:25)
[2021-01-14] MEDS ORDERED: NA CHLORIDE 0.9% 250 ML ONE (14:27)
[2021-01-14 14:42] LABS: Albumin 2.3 g/dL (3.4-5.0); Bilirubin Direct 0.2 mg/dL (0-0.2); Bilirubin Total 0.7 mg/dL (0.2-1.0); CKMB Creatine Kinase MB 3.6 ng/mL (0.3-3.6); Potassium 4.9 mmol/L (3.5-5.1); Protein, Total 5.8 g/dL (6.4-8.2); Troponin (Emerg Dept Use Only) 0.02 ng/mL (0.0-0.045)
[2021-01-14 14:46] LABS: Platelet Estimate DECR; White Blood Cell Scan OK (OK)
[2021-01-14 14:47] LABS: Blood Morphology Comment NOTED (NOT SEEN); Macrocytosis 1+
--- NOTE | 2021-01-14 15:28 | RAD REPORT ---
EXAM DESCRIPTION: RAD - Chest Single View - 01/14/2021 2:19 pm CLINICAL HISTORY: weakness, COVID positive, altered mental status COMPARISON: Portable January 07 TECHNIQUE: AP portable chest image was obtained 01/14/2021 2:19 pm . FINDINGS: Lung volumes are low. Bilateral pneumonia findings are present but show improvement from t he examination 7 days earlier. No mass or cavitation. Heart and vasculature are normal. No measurable pleural effusion and no pneumothorax. No acute bony abnormality seen. No acute aortic findings suspe cted. IMPRESSION: Improving bilateral COVID-19 pneumonia pattern since January 07.
[2021-01-14 17:00] LABS: Urine Amorphous Sediment 4+ /HPF (NONE SEEN); Urine Bacteria 20-50 /HPF (NONE SEEN); Urine Mucus 1+ /HPF (NONE SEEN); Urine RBC TNTC /HPF (NONE SEEN); Urine Sperm PRESENT (NONE SEEN)
[2021-01-14] MEDS ORDERED: NOREPINEPHRINE 4mg/D5W 250mL 4 MG/250 ML BAG IV ONE (17:13)
[2021-01-14] MEDS ORDERED: WATER FOR INJ,STERILE 1,000 ML with NA BICARB 8.4% 150 MEQ IV SCH ×2 (18:00)
[2021-01-14] MEDS ORDERED: CALCIUM GLUC 10% INJ 4.65 MEQ in NA CHLORIDE 0.9% 100 ML IV ONE (18:00)
[2021-01-14 18:53] LABS: Magnesium 2.4 mg/dL (1.8-2.4); Phosphorus 7.9 mg/dL (2.5-4.9)
--- NOTE | 2021-01-14 19:23 | P.PN ---
Date of Service: 01/14/21 I received phone call on 45M ESRD on HD TTS, HD access: AVG, EDW 59 kgs, recently dc on 01/08 w/ covid pna, now p/w shock 2/2 infectious colitis +/- covid pna c/b DKA w/ severe metabolic acidosis. Initially was planned for transfer to hospital in [facility] or [facility] for CRRT but no ICU bed available. 1. Admit to ICU 3rd flr 2. Give IV bicarb 1L stat to bring ABG pH > 7.15. 3. Conventional HD low flow x 2 hrs tonight stat. Unable to do SLED d/t staffing issue & no HD catheter. 4. Check renal panel, ABG, ionized Ca, Mg at least 2 hrs after end of HD tonight 5. Insulin gtt for DKA per primary team. 6. IV antibiotics for infectious colitis per primary team 7. HD low flow again tomorrow x 3 hrs. 8. IV pressor to MAP goal > 65 9. Manage IV volume intake to keep his wt at or above EDW. Do not go below 59 kgs. Give more IV fluids as needed to achieve MAP goal. 5. Ordered Ca Gluc IV x1 now. Full consult tomorrow.
--- NOTE | 2021-01-14 19:54 | EDPHYS ---
Physician Documentation [facility] Name: Orlando Culp Age: 45 yrs Sex: Male : 1975 Arrival Date: 01/14/2021 Time: 12:10 Bed 6 Private MD: ED Physician Artie Soler HPI: 01/14 19:31 This 45 yrs old Male presents to ER via EMS with complaints of Altered Mental kdr Status. 19:31 The patient presents with decreased mental status, decreased responsiveness. Onset: The kdr symptoms/episode began/occurred at an unknown time. Possible causes: low blood sugar, sepsis, unknown. Associated signs and symptoms: The patient has no apparent associated signs or symptoms. Current symptoms: In the emergency department the patient's symptoms are unchanged from the initial presentation. Patient's baseline: Unknown. The patient has not experienced similar symptoms in the past. It is unknown whether or not the patient has had similar symptoms in the past. It is unknown whether or not the patient has recently seen a physician. EMS was called by roommate for AMS and decrease responsiveness. It is unknown when the patient became ill not is it known what his baseline mental status it. There is not any family or friends present.. Historical: - Allergies: 12:14 PENICILLINS; hb 12:14 Phenergan; hb - PMHx: 12:14 Diabetes - IDDM; GERD; ESRD; Hypertension; hb ROS: 19:31 Constitutional: Unable to determine due to AMS and decreased responsiveness kdr 19:31 Unable to obtain ROS due to altered mental status, obtunded state, patient's speech is incomprehensible, patient's inability to understand questions. Exam: 19:31 Constitutional: This is a well developed, poorly nourished patient who is poorly kdr responsive Head/Face: Normocephalic, atraumatic. Eyes: Pupils equal round and reactive to light, extra-ocular motions intact. Lids and lashes normal. Conjunctiva and sclera are non-icteric and not injected. Cornea within normal limits. Periorbital areas with no swelling, redness, or edema. Neck: Trachea midline, no thyromegaly or masses palpated, and no cervical lymphadenopathy. Supple, full range of motion without nuchal rigidity, or vertebral point tenderness. No Meningismus. Chest/axilla: Normal chest wall appearance and motion. Nontender with no deformity. No lesions are appreciated. Cardiovascular: Regular rate and rhythm with a normal S1 and S2. No gallops, murmurs, or rubs. Normal PMI, no JVD. No pulse deficits. Respiratory: Lungs have equal breath sounds bilaterally, clear to auscultation and percussion. No rales, rhonchi or wheezes noted. No increased work of breathing, no retractions or nasal flaring. Abdomen/GI: Soft, non-tender, with normal bowel sounds. No distension or tympany. No guarding or rebound. No evidence of tenderness throughout. Back: No spinal tenderness. No costovertebral tenderness. Full range of motion. 19:31 Abdomen/GI: Inspection: abdomen appears normal, Bowel sounds: diminished, Palpation: soft, nontender, Rectal exam: Prostate: normal, rectal tone normal, Stool: guaiac positive, black. Vital Signs: 12:12 BP 111 / 58; Pulse 74; Resp 16; Temp 97.8; Pulse Ox 95% on R/A; Pain 0/10; hb 12:30 BP 103 / 57; Pulse 72; Resp 22; Pulse Ox 96% ; sv 13:31 BP 104 / 62; Pulse 71; Resp 23; ca1 13:38 Weight 36.29 kg; ss 13:45 BP 117 / 64; Pulse 71; Resp 22; sv 14:30 BP 94 / 54; Pulse 69; Resp 22; Pulse Ox 93% 3 lpm ; hb 15:00 BP 96 / 58; Pulse 68; Resp 19; Pulse Ox 97% on 3 lpm NC; hb 15:30 BP 89 / 52; Pulse 66; Resp 19; Pulse Ox 99% on 3 lpm NC; hb 16:00 BP 94 / 43; Pulse 64; Resp 20; Pulse Ox 99% on 3 lpm NC; hb 16:28 BP 88 / 60; Pulse 63; Resp 19; Pulse Ox 100% ; sv 17:00 BP 70 / 48; Pulse 66; Resp 17; Pulse Ox 97% on 3 lpm NC; hb 17:15 BP 120 / 78; Pulse 67; Resp 17; Pulse Ox 98% on 2 lpm NC; hb 17:30 BP 129 / 86; Pulse 68; Resp 19; Pulse Ox 96% on 2 lpm NC; hb 17:45 BP 113 / 56; Pulse 67; Resp 19; Pulse Ox 97% on 2 lpm NC; hb 18:00 BP 121 / 98; Pulse 66; Resp 19; Pulse Ox 96% on 2 lpm NC; hb 18:15 BP 121 / 98; Pulse 65; Resp 18; Pulse Ox 96% on 2 lpm NC; hb 18:30 BP 100 / 81; Pulse 65; Resp 16; Pulse Ox 100% on 2 lpm NC; hb 18:45 BP 105 / 57; Pulse 65; Resp 17; Pulse Ox 100% on 2 lpm NC; hb 19:30 BP 116 / 64; Pulse 67; Resp 18; Pulse Ox 100% on 2 lpm NC; mg2 19:45 BP 138 / 67; Pulse 68; Resp 18; Pulse Ox 98% on 2 lpm NC; mg2 20:00 BP 108 / 64; Pulse 67; Resp 18; Pulse Ox 100% on 2 lpm NC; mg2 12:12 Shawn (FACES) hb MDM: 19:08 ED course: attempted transfer to [facility] all campuses on [facility] for critical care beds. la1 . 19:31 Data reviewed: vital signs, nurses notes, lab test result(s), radiologic studies. kdr Counseling: I had a detailed discussion with the patient and/or guardian regarding: the historical points, exam findings, and any diagnostic results supporting the discharge/admit diagnosis, lab results, radiology results, the need for outpatient follow up. 19:53 Patient medically screened. kdr 01/14 12:46 Order name: Glucose, Ancillary Testing; Complete Time: 12:52 EDMS 01/14 12:47 Order name: Amylase, Serum; Complete Time: 15:16 kdr 01/14 12:47 Order name: Basic Metabolic Panel; Complete Time: 15:16 kdr 01/14 12:47 Order name: Blood Culture Adult (2) kdr 01/14 12:47 Order name: CBC with Diff; Complete Time: 15:16 kdr 01/14 12:47 Order name: Ckmb; Complete Time: 15:16 kdr 01/14 12:47 Order name: CPK; Complete Time: 15:16 kdr 01/14 12:47 Order name: Lactate; Complete Time: 15:16 kdr 01/14 12:47 Order name: LFT's; Complete Time: 15:16 kdr 01/14 12:47 Order name: Lipase; Complete Time: 15:16 kdr 01/14 12:47 Order name: Procalcitonin; Complete Time: 15:16 kdr 01/14 12:47 Order name: Protime (+inr); Complete Time: 15:16 kdr 01/14 12:47 Order name: Ptt, Activated; Complete Time: 15:16 kdr 01/14 12:47 Order name: Troponin (emerg Dept Use Only); Complete Time: 15:16 kdr 01/14 12:47 Order name: Urine Microscopic Only; Complete Time: 18:37 kdr 01/14 13:21 Order name: Type And Screen; Complete Time: 18:37 hb 01/14 13:52 Order name: ABG; Complete Time: 15:33 em1 01/14 14:47 Order name: CBC Smear Scan; Complete Time: 15:16 EDMS 01/14 14:54 Order name: BMP; Complete Time: 16:25 sv 01/14 15:06 Order name: SARS-COV-2 RT PCR; Complete Time: 15:16 EDMS 01/14 17:29 Order name: Urine Culture EDMS 01/14 17:29 Order name: Glucose; Complete Time: 20:04 hb 01/14 17:33 Order name: Magnesium; Complete Time: 20:04 EDMS 01/14 17:33 Order name: Phosphorus; Complete Time: 20:04 EDMS 01/14 18:36 Order name: Glucose; Complete Time: 20:04 hb 01/14 19:06 Order name: Occult Blood--Ancillary sv 01/14 19:06 Order name: Occult Blood--Ancillary; Complete Time: 20:04 EDMS 01/14 19:38 Order name: Glucose mg2 01/14 12:47 Order name: Chest Single View XRAY; Complete Time: 15:33 kdr 01/14 12:47 Order name: Accucheck; Complete Time: 14:33 kdr 01/14 12:47 Order name: Cardiac monitoring; Complete Time: 13:32 kdr 01/14 12:47 Order name: EKG - Nurse/Tech; Complete Time: 16:02 kdr 01/14 12:47 Order name: IV Saline Lock - Large Bore; Complete Time: 13:32 kdr 01/14 12:47 Order name: Labs collected and sent; Complete Time: 13:32 kdr 01/14 12:47 Order name: O2 Per Protocol; Complete Time: 13:32 kdr 01/14 12:47 Order name: O2 Sat Monitoring; Complete Time: 13:32 kdr 01/14 12:47 Order name: Urine Dipstick-Ancillary (obtain specimen); Complete Time: 16:39 kdr 01/14 13:14 Order name: Chest Abd Pelvis Wo Con; Complete Time: 15:16 EDMS 01/14 15:26 Order name: Labs - recollect needed: BMP; Complete Time: 15:26 hb Administered Medications: 13:35 Drug: NS 0.9% (30 ml/kg) 30 ml/kg Route: IV; Rate: bolus; Site: Other; hb 14:15 Follow up: Response: No adverse reaction; IV Status: Completed infusion; IV Intake: hb 1200ml 13:45 Drug: Insulin Regular Human 10 units {Co-Signature: sv (Annabella Yates RN).} Route: hb IVP; Site: Other; 14:15 Follow up: Response: No adverse reaction hb 14:20 Drug: NS 0.9% 1000 ml Route: IV; Rate: 250 ml/hr; Site: Other; hb 15:22 Follow up: Response: No adverse reaction; IV Status: Order to discontinue infusion; IV hb Intake: 265ml 14:21 Drug: LevaQUIN (levofloxacin) 500 mg Volume: 100 ml; Route: IVPB; Infused Over: 60 sv mins; Site: right femoral; 15:15 Follow up: Response: No adverse reaction; IV Status: Completed infusion; IV Intake: hb 100ml 14:22 Drug: Insulin Drip - (Insulin Regular Human 100 units, NS 0.9% 100 ml) {Co-Signature: sv ss (Jo-Ann Corrigan RN).} {Note: started at 4 units/hr.} Route: IV; Rate: calculated rate; Site: right femoral; 16:26 Follow up: Rate change 7 units/hr; per Dr Soler sv 18:42 Follow up: Rate change 9 units/hr sv 14:22 Drug: vancoMYCIN 1 grams Route: IVPB; Infused Over: 2 hrs; Site: right femoral; sv 15:27 Drug: NS 0.9% 1000 ml Route: IV; Rate: 1000 ml; Site: Other; hb 16:10 Follow up: Response: No adverse reaction; IV Status: Completed infusion; IV Intake: hb 1000ml 16:17 Drug: NS 0.9% 500 ml Route: IV; Rate: bolus; Site: Other; hb 16:28 Follow up: IV Status: Order to discontinue infusion hb 16:30 Follow up: Response: No adverse reaction; IV Status: Completed infusion; IV Intake: hb 150ml 16:31 Drug: NS 0.9% 1000 ml Route: IV; Rate: 100 ml/hr; Site: Other; hb 18:45 Follow up: Response: No adverse reaction; IV Status: Order to discontinue infusion; IV hb Intake: 225ml 17:04 Drug: Levophed (norepinephrine) (4 mg/250 mL D5W 4 mcg/min Route: IV; Rate: calculated hb rate; Site: Other; 18:35 Drug: NS 0.9% 1000 ml Route: IV; Rate: 1000 ml; Site: right femoral; sv Disposition: 19:52 Co-signature as Attending Physician, Artie Soler MD I agree with the assessment and kdr plan of care. Disposition: 01/14/21 19:53 Hospitalization ordered by Kemar Mercado for Inpatient Admission. Preliminary diagnosis are Sepsis, unspecified organism, Altered mental status, unspecified, Hypotension, DKA. - Bed requested for Intensive Care Unit. - Status is Inpatient Admission. mg2 - Condition is Serious. - Problem is new. - Symptoms have improved. Signatures: Dispatcher [employer] EDAnnabella Meza, KAELA SHERWOOD Artie Soler MD MD kdr Maeve, Raphael, TRANSPORTATION COORDINATOR-C TRANSPORTATION COORDINATOR-Cla1 Lorena Denson, KAELA SHERWOOD Lisa Galicia RN RN Eduardo Jo RN RN mg2 Annabella Yates RN Jo-Ann Corrigan RN Corrections: (The following items were deleted from the chart) 13:14 12:51 Chest Abdomen Pelvis W Con+CT.RAD.BRZ ordered. EDMS EDMS 13:53 13:52 Arterial Blood Gas+RC.LAB.BRZ ordered. EDMS EDMS 14:13 13:23 CORONAVIRUS+MR.LAB.BRZ ordered. EDMS EDMS 19:54 19:53 Hospitalization Ordered by Kemar Mercado DO for Inpatient Admission. Preliminary kdr diagnosis is Sepsis, unspecified organism; Altered mental status, unspecified; Hypotension. Bed requested for Intensive Care Unit. Status is Inpatient Admission. Condition is Serious. Problem is new. Symptoms have improved. kdr 19:56 19:54 01/14/2021 19:53 Hospitalization Ordered by Kemar Mercado DO for Inpatient cg Admission. Preliminary diagnosis is Sepsis, unspecified organism; Altered mental status, unspecified; Hypotension; DKA. Bed requested for Intensive Care Unit. Status is Inpatient Admission. Condition is Serious. Problem is new. Symptoms have improved. kdr 20:22 20:14 C-Reactive Protein ordered. EDMS EDMS 20:22 20:14 C-Reactive Protein ordered. EDMS EDMS 20:22 20:14 C-Reactive Protein ordered. EDMS EDMS 20:22 20:14 C-Reactive Protein ordered. EDMS EDMS 20:22 20:14 C-Reactive Protein ordered. EDMS EDMS 20:22 20:14 Ferritin ordered. EDMS EDMS 20:22 20:14 Ferritin ordered. EDMS EDMS 20:22 20:14 Ferritin ordered. EDMS EDMS 20:22 19:56 01/14/2021 19:53 Hospitalization Ordered by Kemar Mercado DO for Inpatient mg2 Admission. Preliminary diagnosis is Sepsis, unspecified organism; Altered mental status, unspecified; Hypotension; DKA. Bed requested for Intensive Care Unit. Status is Inpatient Admission. Condition is Serious. Problem is new. Symptoms have improved. cg
--- NOTE | 2021-01-14 19:54 | ER ---
Nurse's Notes [facility] Name: Orlando Culp Age: 45 yrs Sex: Male : 1975 Arrival Date: 01/14/2021 Time: 12:10 Bed 6 Private MD: Diagnosis: Sepsis, unspecified organism;Altered mental status, unspecified;Hypotension;DKA Presentation: 01/14 12:12 Chief complaint: EMS states: Called out for body aches and tremor, found in bed altered hb and covered in urine and feces. Coronavirus screen: At this time, the client does not indicate any symptoms associated with coronavirus-19. Ebola Screen: No symptoms or risks identified at this time. Initial Sepsis Screen: Does the patient meet any 2 criteria? Altered Mental Status. No. Patient's initial sepsis screen is negative. Does the patient have a suspected source of infection? No. Patient's initial sepsis screen is negative. Risk Assessment: Do you want to hurt yourself or someone else? Patient reports no desire to harm self or others. Onset of symptoms is unknown. 12:12 Method Of Arrival: EMS: [facility] hb 12:12 Acuity: DEMARIO 2 hb 13:07 Acuity: DEMARIO 1 sv Historical: - Allergies: 12:14 PENICILLINS; hb 12:14 Phenergan; hb - PMHx: 12:14 Diabetes - IDDM; GERD; ESRD; Hypertension; hb Screenin:45 Abuse screen: Denies threats or abuse. Denies injuries from another. Nutritional hb screening: No deficits noted. Tuberculosis screening: No symptoms or risk factors identified. Fall Risk Total Hendricks Fall Scale indicates High Risk Score (45 or more points). Fall prevention measures have been instituted. Side Rails Up X 2 Frequent Obs/Assessments Occuring As available patient and family educated on Fall Prevention Program and Strategies. Assessment: 12:15 Reassessment:. General: Appears in no apparent distress. ill, Behavior is restless. hb Pain: Unable to use pain scale. FLACC scale score is 4 out of 10. Neuro: Level of Consciousness is confused, lethargic, Oriented to person. Cardiovascular: Patient's skin is warm and dry. Rhythm is regular. Respiratory: Respiratory effort is even, Respiratory pattern is tachypnea. GI: No signs and/or symptoms were reported involving the gastrointestinal system. : No signs and/or symptoms were reported regarding the genitourinary system. EENT: No signs and/or symptoms were reported regarding the EENT system. Derm: Skin is pink, warm \T\ dry. Musculoskeletal: No signs and/or symptoms reported regarding the musculoskeletal system. 12:20 Reassessment: Pt cleaned of bowel and urinary incontinence. Pt given a bed bath and sv changed into clean gown. 13:01 Reassessment: Dr. Soler at bedside for CVC placement. hb 14:00 Reassessment: No changes from previously documented assessment. Patient and/or family hb updated on plan of care and expected duration. Pain level reassessed. SBP 80s, NS infusing. Dr. Soler aware. 15:00 Reassessment: Pt remains altered, SBP 80s, second NS bolus infusing, Dr. Soler aware. hb 16:23 Reassessment: Pt altered, SBP slowly improving, NS bolus #3 infusing. Awaiting repeat hb BMP results at this time. 17:05 Reassessment: SBP 70s, Dr. Soler notified at bedside. Levophed started per protocol hb as ordered. 18:15 Reassessment: SBP 120s, levophed paused, insulin drip continues. Pt remains lethargic hb and confused. Awaiting dispo at this time. Vital Signs: 12:12 BP 111 / 58; Pulse 74; Resp 16; Temp 97.8; Pulse Ox 95% on R/A; Pain 0/10; hb 12:30 BP 103 / 57; Pulse 72; Resp 22; Pulse Ox 96% ; sv 13:31 BP 104 / 62; Pulse 71; Resp 23; ca1 13:38 Weight 36.29 kg; ss 13:45 BP 117 / 64; Pulse 71; Resp 22; sv 14:30 BP 94 / 54; Pulse 69; Resp 22; Pulse Ox 93% 3 lpm ; hb 15:00 BP 96 / 58; Pulse 68; Resp 19; Pulse Ox 97% on 3 lpm NC; hb 15:30 BP 89 / 52; Pulse 66; Resp 19; Pulse Ox 99% on 3 lpm NC; hb 16:00 BP 94 / 43; Pulse 64; Resp 20; Pulse Ox 99% on 3 lpm NC; hb 16:28 BP 88 / 60; Pulse 63; Resp 19; Pulse Ox 100% ; sv 17:00 BP 70 / 48; Pulse 66; Resp 17; Pulse Ox 97% on 3 lpm NC; hb 17:15 BP 120 / 78; Pulse 67; Resp 17; Pulse Ox 98% on 2 lpm NC; hb 17:30 BP 129 / 86; Pulse 68; Resp 19; Pulse Ox 96% on 2 lpm NC; hb 17:45 BP 113 / 56; Pulse 67; Resp 19; Pulse Ox 97% on 2 lpm NC; hb 18:00 BP 121 / 98; Pulse 66; Resp 19; Pulse Ox 96% on 2 lpm NC; hb 18:15 BP 121 / 98; Pulse 65; Resp 18; Pulse Ox 96% on 2 lpm NC; hb 18:30 BP 100 / 81; Pulse 65; Resp 16; Pulse Ox 100% on 2 lpm NC; hb 18:45 BP 105 / 57; Pulse 65; Resp 17; Pulse Ox 100% on 2 lpm NC; hb 19:30 BP 116 / 64; Pulse 67; Resp 18; Pulse Ox 100% on 2 lpm NC; mg2 19:45 BP 138 / 67; Pulse 68; Resp 18; Pulse Ox 98% on 2 lpm NC; mg2 20:00 BP 108 / 64; Pulse 67; Resp 18; Pulse Ox 100% on 2 lpm NC; mg2 12:12 Shawn (FACES) hb ED Course: 12:10 Patient arrived in ED. ds1 12:14 Triage completed. hb 12:14 Arm band placed on. hb 12:26 Artie Soler MD is Attending Physician. kdr 12:30 Patient has correct armband on for positive identification. Placed in gown. Bed in low sv position. Call light in reach. Side rails up X2. secured entrance monitor on. Pulse ox on. NIBP on. 12:55 Missed attempt(s): 22 gauge in right upper arm. Bleeding controlled, band aid applied, sv catheter tip intact. 12:59 Missed attempt(s): 22 gauge in right hand. done by Lisa SHERWOOD. Bleeding controlled, sv band aid applied, catheter tip intact. 13:25 Assisted provider with central line placement. Set up central line tray. Triple lumen sv line placed in right femoral. Line placed by Artie Soler MD Placement verified by blood return, Dressed with Tegaderm, Blood was collected. Patient tolerated well. Before procedure, did Practitioner(s) obtain informed consent? No. Patient \T\ family education about procedure, CLABSI prevention and S/S of infection? Yes. Time-out/Briefing performed prior to start of procedure? Yes. Was handwashing/sanitizing done immediately prior to procedure? Yes. Was patient positioned to in a way to prevent air embolism? Yes. Was procedure site sterilized? Yes, with chlorhexidine. Was the site allowed to dry? Yes. Was local anesthetic and/or sedation utilized? Yes. During the procedure, did the Practitioner(s) maintain a sterile field? Yes. Were unused ports clamped during insertion? Yes. Was a 2nd qualified MD obtained after 3 unsuccessful insertion attempts? Yes. Was blood aspirated from each lumen? Yes. After the procedure, did the Practitioner(s) clean the site and apply a sterile dressing? Yes. 13:45 Chest Abd Pelvis Wo Con In Process Unspecified. EDMS 14:19 Chest Single View XRAY In Process Unspecified. EDMS 14:24 ABG drawn. by RT staff, on room air. sv 14:36 Lisa Galicia, RN is Primary Nurse. hb 14:45 Notified ED physician of a critical lab result(s). Cl 82, CO2 5, GLUC 1049, CREAT 6.94, hb NA 121. 15:30 [facility] transfer center contacted to initiate transfer; em1 transfer declined due to capacity. 15:43 [facility] Transfer Center contacted to initiate transfer; transfer declined due em1 to capacity. 15:57 EKG done, by ED staff, reviewed by Artie Soler MD. sv 16:04 [facility] Transfer Center contacted to initiate transfer; transfer declined due to em1 capacity. 16:12 [facility] Transfer Center contacted to initiate transfer; transfer declined due to capacity. em1 18:35 Notified ED physician of a critical lab result(s). glucose-838. sv 18:35 Repeat lab(s) drawn. by me, sent to lab. sv 19:52 Kemar Mercado DO is Hospitalizing Provider. kdr 20:11 Patient admitted, IV remains in place. mg2 Administered Medications: 13:35 Drug: NS 0.9% (30 ml/kg) 30 ml/kg Route: IV; Rate: bolus; Site: Other; hb 14:15 Follow up: Response: No adverse reaction; IV Status: Completed infusion; IV Intake: hb 1200ml 13:45 Drug: Insulin Regular Human 10 units {Co-Signature: sv (Annabella Yates RN).} Route: hb IVP; Site: Other; 14:15 Follow up: Response: No adverse reaction hb 14:20 Drug: NS 0.9% 1000 ml Route: IV; Rate: 250 ml/hr; Site: Other; hb 15:22 Follow up: Response: No adverse reaction; IV Status: Order to discontinue infusion; IV hb Intake: 265ml 14:21 Drug: LevaQUIN (levofloxacin) 500 mg Volume: 100 ml; Route: IVPB; Infused Over: 60 sv mins; Site: right femoral; 15:15 Follow up: Response: No adverse reaction; IV Status: Completed infusion; IV Intake: hb 100ml 14:22 Drug: Insulin Drip - (Insulin Regular Human 100 units, NS 0.9% 100 ml) {Co-Signature: sv ss (Jo-Ann Corrigan RN).} {Note: started at 4 units/hr.} Route: IV; Rate: calculated rate; Site: right femoral; 16:26 Follow up: Rate change 7 units/hr; per Dr Soler sv 18:42 Follow up: Rate change 9 units/hr sv 14:22 Drug: vancoMYCIN 1 grams Route: IVPB; Infused Over: 2 hrs; Site: right femoral; sv 15:27 Drug: NS 0.9% 1000 ml Route: IV; Rate: 1000 ml; Site: Other; hb 16:10 Follow up: Response: No adverse reaction; IV Status: Completed infusion; IV Intake: hb 1000ml 16:17 Drug: NS 0.9% 500 ml Route: IV; Rate: bolus; Site: Other; hb 16:28 Follow up: IV Status: Order to discontinue infusion hb 16:30 Follow up: Response: No adverse reaction; IV Status: Completed infusion; IV Intake: hb 150ml 16:31 Drug: NS 0.9% 1000 ml Route: IV; Rate: 100 ml/hr; Site: Other; hb 18:45 Follow up: Response: No adverse reaction; IV Status: Order to discontinue infusion; IV hb Intake: 225ml 17:04 Drug: Levophed (norepinephrine) (4 mg/250 mL D5W 4 mcg/min Route: IV; Rate: calculated hb rate; Site: Other; 18:35 Drug: NS 0.9% 1000 ml Route: IV; Rate: 1000 ml; Site: right femoral; sv Intake: 14:15 IV: 1200ml; Total: 1200ml. hb 15:15 IV: 100ml; Total: 1300ml. hb 15:22 IV: 265ml; Total: 1565ml. hb 16:10 IV: 1000ml; Total: 2565ml. hb 16:30 IV: 150ml; Total: 2715ml. hb 18:45 IV: 225ml; Total: 2940ml. hb Outcome: 19:53 Decision to Hospitalize by Provider. kdr 20:12 Admitted to ICU accompanied by nurse, accompanied by tech, via stretcher, room 3, with mg2 oxygen, with chart, Report called to KAELA Santiago 20:12 Condition: stable 20:12 Instructed on the need for admit, Demonstrated understanding of instructions. 20:22 Patient left the ED. mg2 Signatures: Dispatcher [employer] Annabella Hawk RN RN Artie Soler MD MD [facility] Jose, Briana ds1 Ranulfo, Leonidas em1 Jo-Ann Corrigan RN RN ss Lisa Galicia RN RN hb Eduardo Jo RN RN mg2 Elena Matta RN RN [facility] Annabella Yates RN sv Jo-Ann Corrigan RN ss Corrections: (The following items were deleted from the chart) 15:34 15:31 Reassessment: hb hb 17:50 17:30 BP 129 / 86; Pulse 68bpm; Resp 19bpm; Pulse Ox 96% 3 lpm Nasal Cannula; hb hb
[2021-01-14] MEDS ORDERED: NOREPINEPHRINE 4 MG in D5W 250 ML IV PRN (20:21)
[2021-01-14] MEDS ORDERED: HEPARIN 5000 UNIT/ML 1 ML VIAL SQ SCH (21:00)
--- NOTE | 2021-01-14 21:31 | P.HP ---
Certification for Inpatient Patient admitted to: Inpatient With expected LOS: >2 Midnights Patient will require the following post-hospital care: None Practitioner: I am a practitioner with admitting privileges, knowledge of patient current condition, hospital course, and medical plan of care. Services: Services provided to patient in accordance with Admission requirements found in Title 42 Section 412.3 of the Code of Federal Regulations Patient History Date of Service: 01/14/21 Reason for admission: Septic shock, DKA History of Present Illness: 45-year-old male with history of ESRD on HD, diabetes mellitus type 2, hypertension presents emergency department for altered mental status. EMS reports finding patient at home covered in his own urine/feces and altered, blood sugar read high. Patient evaluated in the emergency department, labs significant for sodium 121 chloride 82 CO2 5 BUN 101 creatinine 6.94 GFR 9 glucose 1049 calcium 7.1 pro calcitonin 23.5 white blood cell count 9.1 hemoglobin 11 urine with 20-[address] chest abdomen pelvis demonstrates moderate severity rectosigmoid colitis pattern with possible mild pain colitis in the remainder of the large intestine, possible duodenitis or duodenal thickening, also noted bilateral COVID-19 changes, patient was recently in the hospital for Sim virus, at this time is not having additional oxygen requirement. Initially patient was hypotensive and was given 3 L bolus in the emergency department and required central line for Levophed, concern for septic shock, DKA. ED provider wishes to admit for further evaluation and management. Case was discussed with nephrology while patient was in the emergency department with arranging for patient to receive 3 hr dialysis session stat. Allergies Penicillins Allergy (Intermediate, Verified 04/27/20 15:35) Rash promethazine [From Phenergan] Allergy (Verified 04/27/20 15:35) Rash Home Medications: Apixaban [Eliquis *] 2.5 mg PO BID #60 tablet 01/10/21 Na Bicarb Tab [Sodium Bicarb 325 MG Tab*] 1,950 mg PO BID #60 tab 01/10/21 carvediloL [Coreg*] 6.25 mg PO BID #60 tab 01/10/21 predniSONE [Prednisone*] 20 mg PO BID #20 tab 01/10/21 - Past Medical/Surgical History Diabetic: Yes -: Diabetes mellitus type 2 -: ESRD on HD TTS -: Hypertension -: Rt eye sx -: chin sx with wound vac Psychosocial/ Personal History: Unable to obtain - Family History Mother -: Hypertension - Social History Smoking Status: Unknown if ever smoked Alcohol use: No CD- Drugs: No Caffeine use: No Place of Residence: Home Review of Systems is unable to be obtained Physical Examination - Vital Signs Temperature: 97.8 F Blood Pressure: 108/64 Pulse: 67 Respirations: 18 - Physical Exam General: Confused HEENT: Mucous membr. moist/pink Neck: Supple Respiratory: Clear to auscultation bilaterally, Normal air movement Cardiovascular: No edema, Regular rate/rhythm, Normal S1 S2 Capillary refill: <2 Seconds Gastrointestinal: Hypoactive, No rebound, No guarding, Tenderness (Mild generalized abdominal tenderness) Musculoskeletal: No contractures, No erythema, No tenderness Integumentary: No significant lesion, No tenderness/swelling, No erythema Neurological: Other (Patient is confused, eyes open does respond to some simple questions with yes the answers, moving all extremities.) - Studies Laboratory Data (last 24 hrs) 01/14/21 19:43: Glucose 736 H* 01/14/21 18:38: Glucose 784 H* 01/14/21 17:32: Glucose 838 H* 01/14/21 15:21: Phosphorus 7.9 H, Magnesium 2.4 01/14/21 15:21: Sodium 124 L, Potassium 4.0, BUN 99 H, Creatinine 6.78 H*, Glucose 970 H* 01/14/21 13:19: PT 13.9 H, INR 1.21, APTT 28.6 01/14/21 13:19: Sodium 121 L, Potassium 4.9, BUN 101 H D, Creatinine 6.94 H* D, Glucose 1049 H*, Total Bilirubin 0.7, AST 4 L, ALT 11 L, Alkaline Phosphatase 79, Amylase 46, Lipase 156 01/14/21 13:10: WBC 9.10 D, Hgb 11.0 L, Hct 38.1 L, Plt Count 55 L Microbiology Data (last 24 hrs): 01/14/21 19:06 Stool Occult Blood - Final Assessment and Plan - Plan Assessment Diabetes mellitus type 2 complicated with ketoacidosis Septic shock secondary to rectosigmoid colitis/duodenitis/pancolitis complicated with urinary tract infection ESRD on HD Hypertension-now hypotensive COVID-19 positive Plan Diabetes mellitus type 2 complicated with ketoacidosis: NPO, continue with insulin drip, q.4h BMP/acetone levels, q.1h Accu-Cheks. Patient was given bicarb bolus as per nephrology, nephrology consulted for assistance with managing DKA conjunction with patient's ESRD. DVT prophylaxis with heparin 5000 units subcutaneous twice daily. Septic shock secondary to rectosigmoid colitis/duodenitis/pancolitis complicated with urinary tract infection: Continue with IV Flagyl, oral vancomycin, will add IV Rocephin for coverage of possible urinary tract infection in addition. Patient received 3 L bolus in the emergency department, Levophed has been discontinued at this time, will use as needed. ESRD on HD: Patient to receive 3 hr dialysis session tonight, nephrology consulted for additional help in management. Hypertension-now hypotensive: Continue as above COVID-19 positive: Patient previously positive for COVID-19, does not appear to be in acute phase, will continue to monitor with daily CRP/ferritin levels, supplemental oxygen as needed, steroids as needed. Discharge Plan: Home Plan to discharge in: Greater than 2 days - Advance Directives Does patient have a Living Will: No Does patient have a Durable POA for Healthcare: No - Code Status/Comfort Care Code Status Assessed: Yes (Full code) Critical Care: No Time Spent Managing Pts Care (In Minutes): 55
[2021-01-14] MEDS ORDERED: CEFTRIAXONE 1 GM/NS 50 ML 1 GM/50 ML BAG IV SCH (21:32)
[2021-01-14 22:12] LABS: Potassium 3.5 mmol/L (3.5-5.1)
[2021-01-14] MEDS ORDERED: GLUCAGON 1 MG/VIAL IM PRN (22:24)
[2021-01-14] MEDS ORDERED: D50W 25 GM/50 ML SYRINGE IV PRN (22:24)
[2021-01-14] MEDS: CEFTRIAXONE/SWI 1gm 1 GM/10 ML SYR IV SCH (22:28)
--- NOTE | 2021-01-14 23:13 | P.INFCA ---
Sepsis Focused Assessment - Focused Assessment Complete? Sepsis Focused Assessment Completed?: Yes - Sepsis Screen Result Severe Sepsis: Positive - Evaluation Current stage of sepsis: Severe sepsis - Vital Signs Reviewed: Yes Heart rate: 70 Blood Pressure: 134/76 Respiratory Rate: 15 O2 Sat by Pulse Oximetry: 100 - Examination Date exam was performed: 01/14/21 Time exam was performed: 23:12 Heart: Regular rate/rhythm, Tachycardia Lungs: Decreased breath sounds Peripheral pulses: 2+ Slightly diminished Peripheral pulse location: Pedal Capillary refill: <2 Seconds Skin examination: Normal turgor
[2021-01-15] MEDS: METRONIDAZOLE 500mg IVPB 500 MG/100 ML BAG IV SCH ×3 (00:46→17:31)
[2021-01-15] MEDS: VANCOMYCIN ORAL SOLN 250 MG/5 ML OSYR PO SCH ×3 (01:00→17:31)
[2021-01-15] MEDS ORDERED: NA CHLORIDE 0.9% 100 ML ONE (01:40)
[2021-01-15] MEDS ORDERED: INSULIN -REGULAR HUMAN 50 UNIT/0.5 ML ML ONE (01:43)
[2021-01-15 03:14] LABS: Albumin 2.1 g/dL (3.4-5.0); Phosphorus 3.1 mg/dL (2.5-4.9); Potassium 3.1 mmol/L (3.5-5.1)
[2021-01-15 03:22] LABS: Arterial Blood Carboxyhemoglob 0.7 % (0-1.5); Blood Gas Oxyhemoglobin 90.4 % (94-97); Blood O2 Saturation 92.5 % (92-98.5)
[2021-01-15] MEDS ORDERED: KCL 10 MEQ/100 ML IVPB 10 MEQ/100 ML BAG IV ONE (03:29)
[2021-01-15] MEDS ORDERED: KCL 20 MEQ/100 mL IVPB 20 MEQ/100 ML BAG IV ONE (03:52)
--- NOTE | 2021-01-15 05:16 | P.CNS ---
Date of Consult: 01/15/21 Reason for Consult: ESRD on HD Requesting Physician: Kemar Mercado Chief Complaint: Septic shock, DKA History of Present Illness: 45M w/ PMHx of ESRD on HD TTS, EDW 59 kg, HD access via a left arm AV graft, hypertension, & recently d/c from hosp w/ covid pna, who presented with shock 2/2 infectious colitis +/- UTI +/- covid pna c/b DKA w/ severe metabolic acidosis. Initially was planned for transfer to hospital in [facility] or [facility] for CRRT but no ICU bed available. He was admitted to ICU last night, started on antibiotics, received IV vasopressor, insulin drip, IV fluids, IV bicarb, & HD. He is now off vasopressor. Allergies Penicillins Allergy (Intermediate, Verified 04/27/20 15:35) Rash promethazine [From Phenergan] Allergy (Verified 04/27/20 15:35) Rash Home Medications: Apixaban [Eliquis *] 2.5 mg PO BID #60 tablet 01/10/21 Na Bicarb Tab [Sodium Bicarb 325 MG Tab*] 1,950 mg PO BID #60 tab 01/10/21 carvediloL [Coreg*] 6.25 mg PO BID #60 tab 01/10/21 predniSONE [Prednisone*] 20 mg PO BID #20 tab 01/10/21 - Past Medical/Surgical History Diabetic: Yes -: Diabetes mellitus type 2 -: ESRD on HD TTS -: Hypertension -: Rt eye sx -: chin sx with wound vac Psychosocial/ Personal History: Unable to obtain - Family History Mother Medical History: Hypertension - Social History Smoking Status: Unknown if ever smoked Alcohol use: No CD- Drugs: No Caffeine use: No Place of Residence: Home Review of Systems General: Weakness Eyes: Unremarkable ENT: Unremarkable Cardiovascular: Unremarkable Gastrointestinal: Abdominal Pain Genitourinary: As per HPI Musculoskeletal: As per HPI Integumentary: As per HPI Neurological: Weakness Lymphatics: As per HPI Physical Examination Temp Pulse Resp BP Pulse Ox 96.9 F 74 16 133/68 100 01/15/21 04:00 01/15/21 04:00 01/15/21 04:00 01/15/21 04:00 01/15/21 04:00 General: Other (appears acutely ill) HEENT: Atraumatic, Normocephalic Neck: Supple Respiratory: Normal air movement Cardiovascular: No rubs, No murmurs Gastrointestinal: Soft and benign Musculoskeletal: No swelling Integumentary: No rashes Neurological: Normal tone Urinary: Other (no sanchez) External genitalia: Deferred Rectal: Deferred Laboratory Data (last 24 hrs) 01/14/21 19:43: Glucose 736 H* 01/14/21 18:38: Glucose 784 H* 01/14/21 17:32: Glucose 838 H* 01/14/21 15:21: Phosphorus 7.9 H, Magnesium 2.4 01/14/21 15:21: Sodium 124 L, Potassium 4.0, BUN 99 H, Creatinine 6.78 H*, Glucose 970 H* 01/14/21 13:19: PT 13.9 H, INR 1.21, APTT 28.6 01/14/21 13:19: Sodium 121 L, Potassium 4.9, BUN 101 H D, Creatinine 6.94 H* D, Glucose 1049 H*, Total Bilirubin 0.7, AST 4 L, ALT 11 L, Alkaline Phosphatase 79, Amylase 46, Lipase 156 01/14/21 13:10: WBC 9.10 D, Hgb 11.0 L, Hct 38.1 L, Plt Count 55 L Conclusions/Impression: # ESRD on HD TTS Received HD low flow last night x 2 hrs for severe acidosis HD again today If he remains hemodynamically stable, plan next HD Mon or Tue next wk EDW 59 kg HD access via a left arm AV graft Monitor renal panel # Septic shock 2/2 infectious colitis +/- UTI +/- covid pna Abx per primary team F/u cultures # DKA Resolved Mngt per primary team # Acidosis Resolved Received HD Monitor # Anemia H/H at goal Monitor # Renal osteodystrophy Monitor Ca & Phos
[2021-01-15] MEDS ORDERED: D5 0.45 NS 1,000 ML IV SCH (06:00)
[2021-01-15] MEDS ORDERED: D5 0.45 NS 1,000 ML IV ONE (06:07)
[2021-01-15 06:14] LABS: Hematocrit 31.4 % (39.6-49.0); MPV 10.6 fL (7.6-11.3); RBC Red Blood Cell Count 3.38 M/uL (4.33-5.43)
[2021-01-15 06:48] LABS: BUN Blood Urea Nitrogen 55 mg/dL (7-18); Bicarbonate 29 mmol/L (21-32); Glucose Level 178 mg/dL (74-106); Potassium 3.2 mmol/L (3.5-5.1); Sodium Level 139 mmol/L (136-145)
[2021-01-15 06:55] LABS: Thyroid Stimulating Hormone 1.22 uIU/mL (0.360-3.740)
--- NOTE | 2021-01-15 07:56 | P.PN ---
Subjective Date of Service: 01/15/21 Chief Complaint: Septic shock, DKA Subjective: Improving (DKA resolved. Anion gap closed. BP stable. Patient reports improvement. on one liter per nasal canula) Physical Examination - Vital Signs Temperature: 96.9 F Blood Pressure: 131/67 Pulse: 71 Respirations: 15 Pulse Ox (%): 100 - Studies Laboratory Data (last 24 hrs) 01/14/21 19:43: Glucose 736 H* 01/14/21 18:38: Glucose 784 H* 01/14/21 17:32: Glucose 838 H* 01/14/21 15:21: Phosphorus 7.9 H, Magnesium 2.4 01/14/21 15:21: Sodium 124 L, Potassium 4.0, BUN 99 H, Creatinine 6.78 H*, Glucose 970 H* 01/14/21 13:19: PT 13.9 H, INR 1.21, APTT 28.6 01/14/21 13:19: Sodium 121 L, Potassium 4.9, BUN 101 H D, Creatinine 6.94 H* D, Glucose 1049 H*, Total Bilirubin 0.7, AST 4 L, ALT 11 L, Alkaline Phosphatase 79, Amylase 46, Lipase 156 01/14/21 13:10: WBC 9.10 D, Hgb 11.0 L, Hct 38.1 L, Plt Count 55 L Microbiology Data (last 24 hrs): 01/14/21 19:06 Stool Occult Blood - Final Assessment & Plan Discharge Plan: Home Plan to discharge in: Greater than 2 days Physician Review Additional Text: Physical exam: Patient alert, cooperative. No significant distress noted. Blood pressure stable. Currently on 1 L per nasal cannula. No significant nausea, vomiting or abdominal pain Heart: Regular rate and rhythm Lungs: Clear anteriorly currently on 1 L per nasal cannula Abdomen: Soft, nontender, no distention noted Extremities: Good range of motion. No focal deficits. No edema noted. Impression: Diabetes mellitus type 2 complicated with diabetic ketoacidosis Septic shock secondary to rectosigmoid colitis/duodenitis/pancolitis complicated with urinary tract infection ESRD on HD, septic shock resolved Hypertension COVID-19 positive Anemia of chronic disease with chronic thrombocytopenia Plan: Diabetes mellitus type 2 complicated with diabetic ketoacidosis: Anion gap is closed. Will transition off insulin drip. Will start Lantus 10 units subcu twice daily. Moderate sliding scale in place. Will provide p.o. medication. Septic shock resolved. Patient with pancolitis. Will need to evaluate for C. difficile. Cultures obtained. Patient on Rocephin, Flagyl and oral vancomycin. Will start lactulose. Patient received dialysis yesterday with improvement. Patient with end-stage renal disease on hemodialysis. Continue to monitor closely. Await further recommendations from nephrology. Will have physical therapy ambulate patient. Patient with recent Covid pneumonia. No steroids needed at this time. Wean off oxygen. Encourage incentive spirometer, proning, handwashing. Patient on DVT prophylaxisheparin. Anticipate improvement over the next 48 to 72 hours.. Septic shock secondary to rectosigmoid colitis/duodenitis/pancolitis complicated with urinary tract infection, septic shock resolved: Septic shock resolved. Continue with current antibiotic therapy IV Flagyl, oral vancomycin, and Rocephin. Await cultures. Will start lactobacillus. Will start feed. ESRD on HD: Patient received dialysis yesterday. Continue with dialysis as directed by nephrology. Hypertension: Septic shock resolved. No longer hypotensive. Continue to hold blood pressure medication. If blood pressures remain elevated will restart carvedilol. COVID-19 positive: Patient recently evaluated for COVID-19. No acute phase at this time. Continue with supplementation. No need for steroids. Wean off oxygen. Monitor CRP and ferritin. Anemia of chronic disease with chronic thrombocytopenia: We will monitor this closely. Will check peripheral smear. Thrombocytopenia may be related to recent Covid pneumonia. Will hold DVT prophylaxis if platelet count less than 90. Will provide SCD. Time Spent Managing Pts Care (In Minutes): 55
[2021-01-15] MEDS ORDERED: BENZONATATE 100 MG CAP PO PRN (07:59)
[2021-01-15] MEDS: INSULIN GLARGINE 100 UNITS/ML SQ SCH ×2 (08:36→21:00)
[2021-01-15] MEDS: INSULIN -REGULAR HUMAN 50 UNIT/0.5 ML ML SQ SCH ×4 (08:36→20:42)
[2021-01-15] MEDS: LACTOBACILLUS/ACIDOPHILUS TAB PO SCH ×3 (08:38→20:42)
[2021-01-15] MEDS: ASCORBIC ACID 500 MG TABLET PO SCH ×3 (08:38→20:41)
[2021-01-15 08:39] LABS: Basophilic Stippling 1+; Blood Morphology Comment NOTED (NOT SEEN); Platelet Estimate DECR
[2021-01-15] MEDS: THIAMINE HCL 100 MG TABLET PO SCH ×2 (08:39→20:42)
[2021-01-15] MEDS: ZINC SULFATE 220 MG CAP PO SCH (08:39)
[2021-01-15] MEDS: FAMOTIDINE 20 MG TAB PO SCH (08:39)
[2021-01-15] MEDS: VITAMIN D 1000 UNIT TAB PO SCH (08:39)
[2021-01-15] MEDS: CEFTRIAXONE/SWI 1gm 1 GM/10 ML SYR IV SCH (20:43)
[2021-01-16] MEDS: VANCOMYCIN ORAL SOLN 250 MG/5 ML OSYR PO SCH ×3 (00:12→18:13)
[2021-01-16] MEDS: METRONIDAZOLE 500mg IVPB 500 MG/100 ML BAG IV SCH ×3 (00:13→18:13)
[2021-01-16 05:25] LABS: Absolute Lymphocytes (CBC) 0.3 K/uL (0.7-4.9); Basophils % 0.5 % (0-1.3); Hematocrit 32.9 % (39.6-49.0); Lymphocytes % 3.5 % (15.3-44.8); MPV 9.4 fL (7.6-11.3)
[2021-01-16 06:22] LABS: C-Reactive Protein 50.5 mg/L (<3.00); Ferritin 1344.3 ng/mL (26-388); Potassium 3.5 mmol/L (3.5-5.1)
--- NOTE | 2021-01-16 07:27 | EKG ---
Test Date: 2021-01-14 Test Time: 15:57:56 Arc Welder: SV MEASUREMENT RESULTS: Intervals: Rate: 65 VT: 142 QRSD: 94 QT: 490 QTc: 509 Home: P: 55 VT: 142 QRS: 60 T: 73 INTERPRETIVE STATEMENTS: Normal sinus rhythm Prolonged QT Abnormal ECG Compared to ECG 01/07/2021 07:35:34 Prolonged QT interval now present Sinus tachycardia no longer present T-wave abnormality no longer present Possible ischemia no longer present Electronically Signed On 01-16-21 07:22:34 CDT by Marino Parson
[2021-01-16] MEDS ORDERED: D50W 25 GM/50 ML VIAL IV PRN (08:00)
[2021-01-16] MEDS: VITAMIN D 1000 UNIT TAB PO SCH (09:03)
[2021-01-16] MEDS: ASCORBIC ACID 500 MG TABLET PO SCH ×3 (09:03→20:06)
[2021-01-16] MEDS: THIAMINE HCL 100 MG TABLET PO SCH ×2 (09:03→20:06)
[2021-01-16] MEDS: INSULIN GLARGINE 100 UNITS/ML SQ SCH (09:03)
[2021-01-16] MEDS: LACTOBACILLUS/ACIDOPHILUS TAB PO SCH ×3 (09:03→20:05)
[2021-01-16] MEDS: ZINC SULFATE 220 MG CAP PO SCH (09:03)
[2021-01-16] MEDS: INSULIN -REGULAR HUMAN 50 UNIT/0.5 ML ML SQ SCH ×4 (09:04→21:35)
--- NOTE | 2021-01-16 11:41 | RAD REPORT ---
EXAM DESCRIPTION: RAD - Chest Single View - 01/16/2021 11:21 am CLINICAL HISTORY: COVIDpneumonia COMPARISON: January 14January 07 TECHNIQUE: AP portable chest image was obtained 01/16/2021 11:21 am . FINDINGS: There is been continued reduction in extent of bilateral COVID pneumonia findings. Left ba se remains most prominent. No failure or volume overload findings. Heart and vasculature are normal. No measurable pleural effusion and no pneumothorax. No acute bony abnormality seen. No acute aortic f indings suspected. IMPRESSION: Continued improvement in the bilateral COVID-19 pneumonia findings since January 14.
--- NOTE | 2021-01-16 13:13 | P.PN ---
Subjective Date of Service: 01/16/21 Chief Complaint: Septic shock, DKA Subjective: Improving, Doing well Physical Examination - Vital Signs Temperature: 97.1 F Blood Pressure: 146/76 Pulse: 81 Respirations: 27 Pulse Ox (%): 100 - Studies Microbiology Data (last 24 hrs): 01/14/21 16:23 Clean Catch Urine [place] Count - Final No growth. 01/14/21 16:23 Clean Catch Urine - Final No growth. Assessment & Plan Discharge Plan: Home Plan to discharge in: 48 Hours Physician Review Additional Text: Physical exam: Patient alert, cooperative. No significant distress noted. Blood pressure stable. Currently on 1 L per nasal cannula. No significant nausea, vomiting or abdominal pain Heart: Regular rate and rhythm Lungs: Clear anteriorly currently on 1 L per nasal cannula Abdomen: Soft, nontender, no distention noted Extremities: Good range of motion. No focal deficits. No edema noted. Impression: Diabetes mellitus type 2 complicated with diabetic ketoacidosis Septic shock secondary to rectosigmoid colitis/duodenitis/pancolitis complicated with urinary tract infection ESRD on HD, septic shock resolved Hypertension COVID-19 positive Anemia of chronic disease with chronic thrombocytopenia Plan: Diabetes mellitus type 2 complicated with diabetic ketoacidosis: Patient doing well at this time. Patient was transitioned to Lantus 10 units subcu twice daily. Blood sugar controlled. Patient tolerating diet. Continue antibiotic therapy. Patient on Rocephin, Flagyl and oral vancomycin. Spoke with nephrology. Nephrology to obtain chest x-ray. Patient may require dialysis over the weekend. Patient does dialysis every Monday, Monday and Monday. Continue to wean off oxygen. No need for steroids at this time. Continue DVT prophylaxis. Encourage incentive spirometer, proning, handwashing. Patient on DVT prophylaxisheparin. Anticipate improvement over the next 48 hours.. Septic shock secondary to rectosigmoid colitis/duodenitis/pancolitis complicated with urinary tract infection, septic shock resolved: Septic shock resolved. Continue with current antibiotic therapy IV Flagyl, oral vancomycin, and Rocephin. Await cultures. Will start lactobacillus. Continue with feeding. ESRD on HD: Nephrology to check chest x-ray to determine if patient will require dialysis. Patient gets dialysis every Monday, Monday and Monday. Continue with dialysis as directed by nephrology. Hypertension: Septic shock resolved. No longer hypotensive. Restart carvedilol COVID-19 positive: Patient recently evaluated for COVID-19. No acute phase at this time. Continue with supplementation. No need for steroids. Wean off oxygen. Monitor CRP and ferritin. Anemia of chronic disease with chronic thrombocytopenia: We will monitor this closely. Will check peripheral smear. Thrombocytopenia may be related to recent Covid pneumonia. Will hold DVT prophylaxis if platelet count less than 90. Will provide SCD. Time Spent Managing Pts Care (In Minutes): 55
--- NOTE | 2021-01-16 15:45 | PN ---
Date of Progress Note: 01/16/2021 Subjective: The patient was admitted with DKA and septic shock, pneumonia. The patient to undergo sled dialysis. The patient tolerated the dialysis, weaned from pressor. The patient is still on oxygen. Physical Examination: Vital Signs: When I saw the patient blood pressure 157/64, pulse of 88, afebrile. Had dialysis. We managed to remove 1500. Chest: Crackles bilateral. Heart: S1, S2. Systolic murmur. Abdomen: Soft, nontender. Extremities: No edema. Laboratory Data: WBC 8.3, H and H 11/32.9, platelets 52. Sodium 139, potassium 3.5, bicarb 30, BUN 39, creatinine 3.9, calcium 7.4, ferritin of 1344. C- reactive protein of 50. Current Medications: Include: 1. Metronidazole. 2. Vancomycin. 3. Ceftriaxone. 4. Pepcid. 5. Tylenol 6. Zofran. Assessment And Plan: 1. End-stage renal disease with acidosis, status post dialysis, stable. We will continue dialysis Monday, Monday, Monday. We will order chest x-ray today for better evaluation of the fluid status. 2. Hypertension, used to be septic shock just weaned from the pressor. We will monitor. 3. Acidosis secondary to colitis, gastrointestinal loss/renal failure, end- stage renal disease, recovered, resolved. 4. Colitis. Continue current antibiotic. Follow up with the primary. 5. COVID pneumonia. Continue. Follow up with Pulmonary. 6. Respiratory failure secondary to COVID/over volume. We will follow up chest x-ray today to evaluate if we need another session of dialysis. 7. Diabetes with diabetic ketoacidosis. Continue current insulin. Diabetic ketoacidosis has been resolved. Time spent discussing with the patient, examining the patient, [id number] with the patient, placing orders, discussing the case with our steam train driver including nursing, discussing the case with the other subspecialty including Cardiology and hospitalist 35 minutes. MUKESH Voice ID: [id number] Report ID: [id number] ADRIA
[2021-01-16] MEDS ORDERED: TRAMADOL HCL 50 MG TAB PO PRN (18:38)
[2021-01-16] MEDS: TRAMADOL HCL 50 MG TAB PO PRN (18:50)
[2021-01-16] MEDS: carvediloL 6.25 MG TAB PO SCH (20:05)
[2021-01-16] MEDS ORDERED: INSULIN GLARGINE 100 UNITS/ML SQ SCH (21:00)
[2021-01-16] MEDS: NEPRO SHAKE 237 ML CAN PO PRN (21:36)
[2021-01-16] MEDS: CEFTRIAXONE/SWI 1gm 1 GM/10 ML SYR IV SCH (21:36)
[2021-01-17] MEDS: VANCOMYCIN ORAL SOLN 250 MG/5 ML OSYR PO SCH ×2 (00:18→08:32)
[2021-01-17] MEDS: METRONIDAZOLE 500mg IVPB 500 MG/100 ML BAG IV SCH ×2 (00:18→08:30)
[2021-01-17 05:15] LABS: Absolute Lymphocytes (CBC) 0.4 K/uL (0.7-4.9); Basophils % 0.2 % (0-1.3); Hematocrit 30.9 % (39.6-49.0); Lymphocytes % 4.5 % (15.3-44.8); MPV 9.7 fL (7.6-11.3); RBC Red Blood Cell Count 3.24 M/uL (4.33-5.43)
[2021-01-17 07:01] LABS: C-Reactive Protein 35.8 mg/L (<3.00); Ferritin 1119.9 ng/mL (26-388)
[2021-01-17 07:04] LABS: Potassium 2.9 mmol/L (3.5-5.1)
[2021-01-17] MEDS: INSULIN -REGULAR HUMAN 50 UNIT/0.5 ML ML SQ SCH ×4 (07:30→20:44)
[2021-01-17] MEDS: VITAMIN D 1000 UNIT TAB PO SCH (08:30)
[2021-01-17] MEDS: FAMOTIDINE 20 MG TAB PO SCH (08:31)
[2021-01-17] MEDS: LACTOBACILLUS/ACIDOPHILUS TAB PO SCH ×3 (08:31→20:43)
[2021-01-17] MEDS: ASCORBIC ACID 500 MG TABLET PO SCH ×3 (08:31→20:43)
[2021-01-17] MEDS: carvediloL 6.25 MG TAB PO SCH ×2 (08:31→20:42)
[2021-01-17] MEDS: ZINC SULFATE 220 MG CAP PO SCH (08:31)
[2021-01-17] MEDS: THIAMINE HCL 100 MG TABLET PO SCH ×2 (08:32→20:43)
[2021-01-17] MEDS: NEPRO SHAKE 237 ML CAN PO PRN (08:32)
[2021-01-17] MEDS: ONDANSETRON 4 MG/2 ML VIAL IV PRN ×2 (08:55→14:20)
[2021-01-17] MEDS ORDERED: KCL 20 MEQ/100 mL IVPB 20 MEQ/100 ML BAG IV SCH (09:00)
--- NOTE | 2021-01-17 09:36 | P.PN ---
Subjective Date of Service: 01/17/21 Chief Complaint: Septic shock, DKA Subjective: Other (Patient reports improvement. No significant diarrhea. No significant nausea or vomiting. Poor oral intake noted.) Physical Examination - Vital Signs Temperature: 97.3 F Blood Pressure: 146/74 Pulse: 69 Respirations: 17 Pulse Ox (%): 99 - Studies Microbiology Data (last 24 hrs): 01/14/21 13:19 Blood - Blood Aerobic Blood Culture - Final Staph Hominis 01/14/21 13:19 Blood - Blood Blood Culture Gram Stain - Final 01/14/21 13:19 Blood - Blood Anaerobic Blood Culture - Final Staphylococcus Hominis 01/14/21 13:19 Blood - Blood Gram Stain - Final 01/14/21 13:10 Blood - Blood Aerobic Blood Culture - Final Staph Hominis 01/14/21 13:10 Blood - Blood Blood Culture Gram Stain - Final 01/14/21 13:10 Blood - Blood Anaerobic Blood Culture - Final Staphylococcus Hominis 01/14/21 13:10 Blood - Blood Gram Stain - Final 01/14/21 16:23 Clean Catch Urine [place] Count - Final No growth. 01/14/21 16:23 Clean Catch Urine - Final No growth. Assessment & Plan Discharge Plan: Home Plan to discharge in: 48 Hours Physician Review Additional Text: Physical exam: Patient alert, cooperative. No significant distress noted. Blood pressure stable. Patient on room air. Nurses report no significant diarrhea. Blood sugar was low this morning. Nurses report poor oral intake. Heart: Regular rate and rhythm Lungs: Clear anteriorly patient on room air Abdomen: Soft, nontender, no distention noted Extremities: Good range of motion. No focal deficits. No edema noted. Impression: Diabetes mellitus type 2 complicated with diabetic ketoacidosis Septic shock secondary to rectosigmoid colitis/duodenitis/pancolitis complicated with urinary tract infection, septic shock resolved, blood culture positive for staph hominis ESRD on HD with hypokalemia and hypocalcemia Hypertension COVID-19 positive Anemia of chronic disease with chronic thrombocytopenia Plan: Diabetes mellitus type 2 complicated with diabetic ketoacidosis: Patient remained stable. Patient with poor oral intake. Hypoglycemia noted. Patient had been transitioned to Lantus but will discontinue this. Continue sliding scale only. Will have dietary address daily needs as the patient has had poor intake. Blood cultures positive for staph hominis. No evidence of C. difficile or diarrhea. Will discontinue IV to buttock therapy. Will transition to Levaquin to 50 mg every 48 hours to cover for bacteremia for a total of 14 days. Potassium to be replaced by nephrology. Patient had dialysis yesterday. Will discuss with nephrology about plan of care. Patient gets dialysis every Monday, Monday and Monday. Continue DVT prophylaxis. Encourage incentive spirometer, proning and handwashing. Anticipate improvement over the next 48 hours but will need to ensure patient is taking good oral intake. I will turn the service over to the hospitalist team tomorrow. I will go plan of care with him. Septic shock secondary to rectosigmoid colitis/duodenitis/pancolitis complicated with urinary tract infection, septic shock resolved, blood culture positive for staph hominis: No diarrhea noted. No significant nausea or vomiting. No evidence of C. difficile colitis. Will discontinue IV antibiotic therapyFlagyl, Rocephin and oral vancomycin. We'll switch to Levaquin to 50 mg every 48 hours for a total of 2 weeks to cover bacteremia. Encourage oral intake. Will monitor closely. ESRD on HD with hypokalemia and hypocalcemia: Patient received dialysis yesterday. Continue with nephrology recommendation. Patient gets dialysis every Monday, Monday and Monday. Potassium replaced. Hypertension: Septic shock resolved. No longer hypotensive. Carvedilol restarted COVID-19 positive: Patient recently evaluated for COVID-19. No acute phase at this time. Continue with supplementation. No need for steroids. Wean off oxygen. Monitor CRP and ferritin. Anemia of chronic disease with chronic thrombocytopenia: We will monitor this closely. Will check peripheral smear. Thrombocytopenia may be related to recent Covid pneumonia and bacteremia. Will hold DVT prophylaxis if platelet count less than 90. Will provide SCD. Time Spent Managing Pts Care (In Minutes): 55
--- NOTE | 2021-01-17 13:15 | PN ---
Date of Progress Note: 01/17/2021 Subjective: The patient was admitted with COVID pneumonia. The patient complaining from weakness, fatigue, poor intake, diarrhea, and taking Benadryl. Physical Examination: Vital Signs: Blood pressure 129/66, pulse of 78, afebrile. Chest: Clear to auscultation. Heart: S1, S2. Systolic murmur. Abdomen: Soft, nontender. Extremity: No edema. Neuro: No focality, but the patient completely weak. Muscle power around 3/5. Laboratory Data: WBC 8.6, H and H 10.2/30.9, platelets 44. Sodium 140, potassium 2.9, bicarb 29, BUN 44, creatinine 4.9, calcium 6.9, ferritin 1100 and trending down. PTH is 318. Current Medications: The patient on include; 1. Levaquin 250 every 24 hours. 2. Nepro. 3. Zinc sulfate. 4. Pepcid. 5. Tramadol. 6. Calcitriol. 7. Cholecalciferol. Assessment And Plan: 1. End-stage renal disease. We will continue the patient on dialysis. I am going to go ahead and arrange for dialysis tomorrow. 2. Hypertension, controlled, optimal. Continue current medication. 3. Hypokalemia. We will supplement. We will dialyze the patient on high potassium bath. 4. Secondary hyperparathyroidism. Start the patient on calcitriol and start the patient on Tums. 5. COVID pneumonia. Continue current treatment. Follow up with Pulmonary. Time spent discussing with the patient, examining the patient, [id number] with the patient, placing orders, discussing the case with our steam box tender including nursing, discussing the case with the other subspecialty including Cardiology and hospitalist 35 minutes. MUKESH Voice ID: [id number] Report ID: [id number] ADRIA
[2021-01-17] MEDS: levoFLOXacin 250 MG TAB PO SCH (13:32)
[2021-01-17] MEDS: CALCIUM CARBONATE CHEW 500MG TAB PO SCH (17:47)
[2021-01-18] MEDS: TRAMADOL HCL 50 MG TAB PO PRN (01:59)
[2021-01-18 05:29] LABS: Absolute Lymphocytes (CBC) 0.4 K/uL (0.7-4.9); Basophils % 0.3 % (0-1.3); Hematocrit 31.7 % (39.6-49.0); Lymphocytes % 4.2 % (15.3-44.8); MPV 10.7 fL (7.6-11.3); RBC Red Blood Cell Count 3.29 M/uL (4.33-5.43)
[2021-01-18] MEDS: ONDANSETRON 4 MG/2 ML VIAL IV PRN ×3 (05:30→16:50)
[2021-01-18 06:04] LABS: C-Reactive Protein 28.9 mg/L (<3.00); Ferritin 1099.8 ng/mL (26-388); Potassium 3.9 mmol/L (3.5-5.1)
[2021-01-18] MEDS ORDERED: CALCITROL 0.25 MCG CAP PO SCH (08:00)
[2021-01-18] MEDS: INSULIN -REGULAR HUMAN 50 UNIT/0.5 ML ML SQ SCH ×4 (08:19→21:00)
[2021-01-18 08:33] LABS: White Blood Cell Scan OK (OK)
[2021-01-18 08:34] LABS: Blood Morphology Comment NOT SEEN (NOT SEEN); Platelet Estimate DECR
[2021-01-18] MEDS: THIAMINE HCL 100 MG TABLET PO SCH ×2 (09:00→19:54)
[2021-01-18] MEDS: LACTOBACILLUS/ACIDOPHILUS TAB PO SCH ×3 (09:25→19:54)
[2021-01-18] MEDS: ASCORBIC ACID 500 MG TABLET PO SCH ×3 (09:25→19:54)
[2021-01-18] MEDS: ZINC SULFATE 220 MG CAP PO SCH (09:25)
[2021-01-18] MEDS: VITAMIN D 1000 UNIT TAB PO SCH (09:25)
[2021-01-18] MEDS: carvediloL 6.25 MG TAB PO SCH ×2 (09:26→19:53)
[2021-01-18] MEDS: CALCIUM CARBONATE CHEW 500MG TAB PO SCH ×3 (09:27→16:30)
--- NOTE | 2021-01-19 00:56 | PN ---
Date of Progress Note: 01/18/2021 Chief Complaint: End-stage renal disease. History Of Present Illness: The patient is in ICU for COVID pneumonia. Today, he is undergoing dial ysis to obtain metabolic clearance and ultrafiltration. Electrolytes are in stable ranges, although the patient was found to have hypokalemia and received potassium replacement. Dialysis parameters we re adjusted to prevent hypokalemia. The patient has multiple medical problems including history of diabetes mellitus, diabetic nephropath y, severe retinopathy. Review of Systems: The patient had poor intake. Denies diarrhea. Denies nausea or vomiting. Physical Examination: Lungs: Diminished breath sounds at bases. Heart: S1, S2. Abdomen: Soft, benign. Extremities: No edema. Impression And Plan: 1.End-stage renal disease. Dialysis is done today with ultrafiltration. Monitor blood pressure dur ing dialysis. Adjust ultrafiltration as needed. 2.Hypertension. Monitor blood pressure. Blood pressure currently is in good control. 3.Renal osteodystrophy and hyperparathyroidism. Continue calcitriol and Tums. Monitor calcium leve l and albumin level. 4.COVID pneumonia. Continue treatment with oxygen therapy and medication. ALVA/MODL Voice ID: [id number] Report ID: [id number]
[2021-01-19] MEDS: ONDANSETRON 4 MG/2 ML VIAL IV PRN ×2 (04:30→13:00)
[2021-01-19 05:12] LABS: Absolute Lymphocytes (CBC) 0.5 K/uL (0.7-4.9); Basophils % 0.5 % (0-1.3); Hematocrit 30.2 % (39.6-49.0); RBC Red Blood Cell Count 3.12 M/uL (4.33-5.43)
[2021-01-19 05:35] LABS: C-Reactive Protein 31.7 mg/L (<3.00); Ferritin 1191.9 ng/mL (26-388); Magnesium 2.2 mg/dL (1.8-2.4); Potassium 4.7 mmol/L (3.5-5.1)
[2021-01-19] MEDS: INSULIN -REGULAR HUMAN 50 UNIT/0.5 ML ML SQ SCH ×4 (07:52→21:23)
[2021-01-19] MEDS: GLUCERNA SHAKE 237 ML CAN PO SCH ×2 (09:00→21:07)
[2021-01-19] MEDS: THIAMINE HCL 100 MG TABLET PO SCH ×2 (09:00→21:06)
[2021-01-19] MEDS: VITAMIN D 1000 UNIT TAB PO SCH (09:37)
[2021-01-19] MEDS: ASCORBIC ACID 500 MG TABLET PO SCH ×3 (09:43→21:06)
[2021-01-19] MEDS: levoFLOXacin 250 MG TAB PO SCH (09:43)
[2021-01-19] MEDS: carvediloL 6.25 MG TAB PO SCH ×2 (09:43→21:05)
[2021-01-19] MEDS: ZINC SULFATE 220 MG CAP PO SCH (09:43)
[2021-01-19] MEDS: LACTOBACILLUS/ACIDOPHILUS TAB PO SCH ×3 (09:43→21:06)
[2021-01-19] MEDS: CALCITROL 0.25 MCG CAP PO SCH (09:45)
[2021-01-19] MEDS: CALCIUM CARBONATE CHEW 500MG TAB PO SCH ×3 (09:45→17:26)
--- NOTE | 2021-01-19 11:14 | PN ---
Date of Progress Note: 01/19/2021 Subjective: The patient was admitted with COVID pneumonia, respiratory failure. The patient was on dialysis. The patient had dialysis yesterday. We managed to remove 2 L. The patient is on room air. Physical Examination: Vital Signs: Blood pressure 143/63, pulse of 81, afebrile. Chest: Clear to auscultation. Heart: S1, S2. Regular. Abdomen: Soft, nontender. Extremity: No edema. Neuro: Alert. No focality. Laboratory Data: WBC 10.9, H and H 10.1/30.2. Sodium 140, potassium 4.7, bicarb 21, BUN 28, creatinine 4.3, calcium 7.1, phosphorus 3.1. Ferritin rise to 1191. Current Medications: The patient on include calcium carbonate, Levaquin, carvedilol, zinc sulfate, Pepcid, tramadol, calcitriol, vitamin D, and thiamine. Assessment And Plan: 1. End-stage renal disease, normal volume. I am going to continue the patient on dialysis this week Monday, Monday, Monday. Then, we are going to switch him to TTS after. If the patient discharged, going to be dialyze at his day. 2. Hypertension, controlled, optimal. Continue current medication. 3. Secondary hyperparathyroidism with low calcium, calcium started being normalized. Continue calcitriol and vitamin D with calcium carbonate. 4. Diabetes as by primary. 5. Gastroparesis. I am going to start the patient on Reglan. Continue Pepcid. 6. Deconditioning. Continue PT/OT. We will follow up with primary. Time spent discussing with the patient, examining the patient, [id number] with the patient, placing orders, discussing the case with our crew team member including nursing, discussing the case with the other subspecialty including Cardiology and hospitalist 35 minutes. MUKESH Voice ID: [id number] Report ID: [id number] ADRIA
[2021-01-19] MEDS: FAMOTIDINE 20 MG TAB PO SCH (11:49)
[2021-01-19] MEDS: METOCLOPRAMIDE 5 MG TAB PO SCH ×3 (11:49→21:06)
[2021-01-19] MEDS: TRAMADOL HCL 50 MG TAB PO PRN (21:06)
[2021-01-20] MEDS: ONDANSETRON 4 MG/2 ML VIAL IV PRN ×2 (05:56→11:20)
[2021-01-20] MEDS: GLUCERNA SHAKE 237 ML CAN PO SCH ×2 (09:00→20:24)
[2021-01-20] MEDS: INSULIN -REGULAR HUMAN 50 UNIT/0.5 ML ML SQ SCH ×4 (09:00→20:25)
[2021-01-20] MEDS: carvediloL 6.25 MG TAB PO SCH ×2 (09:01→20:24)
[2021-01-20] MEDS: VITAMIN D 1000 UNIT TAB PO SCH (09:01)
[2021-01-20] MEDS: LACTOBACILLUS/ACIDOPHILUS TAB PO SCH ×3 (09:01→20:24)
[2021-01-20] MEDS: ZINC SULFATE 220 MG CAP PO SCH (09:01)
[2021-01-20] MEDS: THIAMINE HCL 100 MG TABLET PO SCH ×2 (09:01→20:23)
[2021-01-20] MEDS: ASCORBIC ACID 500 MG TABLET PO SCH ×3 (09:01→20:23)
[2021-01-20] MEDS: CALCIUM CARBONATE CHEW 500MG TAB PO SCH ×3 (09:02→16:07)
[2021-01-20] MEDS: METOCLOPRAMIDE 5 MG TAB PO SCH ×4 (09:03→20:24)
--- NOTE | 2021-01-20 13:19 | PN ---
Date of Progress Note: 01/20/2021 Subjective: The patient was admitted with COVID pneumonia. The patient being on dialysis. Tolerating the dialysis very well. His original schedule is going to be TTS after discharge because of the COVID. Physical Examination: Vital Signs: When I saw the patient; blood pressure 142/69, pulse of 80. Chest: Clear to auscultation. Heart: S1, S2. Regular. Abdomen: Soft, nontender. Extremity: No edema. Neuro: Alert, oriented. No focality. Generalized weakness. Muscle strength 3 to 4/5. Laboratory Data: WBC 10.9, H and H 10.1/30.2. Sodium 140, potassium 4.7, bicarb 21, BUN 28, creatinine 4.3, calcium 7.8, phosphorus 3.1, calcium 7.8. Current Medications: The patient on include; 1. Calcium carbonate. 2. Levaquin. 3. Carvedilol 6.25 b.i.d. 4. Metoclopramide. 5. Insulin. Assessment And Plan: 1. End-stage renal disease. We will continue the patient on dialysis Monday, Monday, Monday for this week. If the patient is going to be transferred to rehab, can continue on Monday, Monday, Monday. If he is going to go back to his dialysis unit, we will switch him back to TTS next week and we will follow up. 2. Hypertension, controlled, optimal. Continue current treatment. 3. Secondary hyperparathyroidism. We will continue with his binder. 4. Anemia of chronic kidney disease. Continue MARIKA. 5. COVID pneumonia, stable. We will follow up with Pulmonary. 6. Deconditioning. Continue PT/OT. Plan for rehab placement. Time spent discussing with the patient, examining the patient, [id number]-[id number] withthe patient, placing orders, discussing the case with our pricing/signage team member including nursing, discussing the case with the other subspecialty including Cardiology and hospitalist 35 minutes. MUKESH Voice ID: [id number] Report ID: [id number]
[2021-01-21 05:28] LABS: Phosphorus 2.5 mg/dL (2.5-4.9)
[2021-01-21] MEDS: carvediloL 6.25 MG TAB PO SCH ×2 (08:35→20:51)
[2021-01-21] MEDS: LACTOBACILLUS/ACIDOPHILUS TAB PO SCH ×3 (08:35→20:51)
[2021-01-21] MEDS: CALCIUM CARBONATE CHEW 500MG TAB PO SCH ×3 (08:35→16:39)
[2021-01-21] MEDS: INSULIN -REGULAR HUMAN 50 UNIT/0.5 ML ML SQ SCH ×4 (08:35→20:52)
[2021-01-21] MEDS: VITAMIN D 1000 UNIT TAB PO SCH (08:35)
[2021-01-21] MEDS: ASCORBIC ACID 500 MG TABLET PO SCH ×3 (08:35→20:51)
[2021-01-21] MEDS: GLUCERNA SHAKE 237 ML CAN PO SCH ×2 (08:36→20:52)
[2021-01-21] MEDS: CALCITROL 0.25 MCG CAP PO SCH (08:36)
[2021-01-21] MEDS: METOCLOPRAMIDE 5 MG TAB PO SCH ×4 (08:36→20:53)
[2021-01-21] MEDS: FAMOTIDINE 20 MG TAB PO SCH (08:36)
[2021-01-21] MEDS: THIAMINE HCL 100 MG TABLET PO SCH ×2 (08:36→20:51)
[2021-01-21] MEDS: ZINC SULFATE 220 MG CAP PO SCH (08:37)
[2021-01-21] MEDS: levoFLOXacin 250 MG TAB PO SCH (08:49)
--- NOTE | 2021-01-21 09:45 | P.PN ---
Subjective Date of Service: 01/18/21 Patient's chart reviewed. Events since admission noted. Patient has been falling lately. Patient's strength is very diminished. Will get physical therapy evaluation and patient may need inpatient rehabilitation. Review of Systems 10-point ROS is otherwise unremarkable Physical Examination - Vital Signs Temperature: 97.2 F Blood Pressure: 144/71 Pulse: 77 Respirations: 13 Pulse Ox (%): 97 - Physical Exam General: Alert, In no apparent distress, Oriented x3 HEENT: Atraumatic, PERRLA, EOMI Neck: Supple, JVD not distended Respiratory: Clear to auscultation bilaterally, Normal air movement Cardiovascular: Regular rate/rhythm, Normal S1 S2 Gastrointestinal: Normal bowel sounds, Soft and benign, Non-distended, No tenderness Musculoskeletal: No clubbing, No swelling, No tenderness Neurological: Sensation intact, Cranial nerves 3-12 intact, Abnormal strength, Abnormal tone - Studies Medications List Reviewed: Yes Assessment & Plan - Problems (Diagnosis) (1) COVID-19 Current Visit: Yes Status: Acute (2) DM2 (diabetes mellitus, type 2) Current Visit: No Status: Acute Qualifiers: Diabetes mellitus long term care social worker insulin use: with long term care social worker use Diabetes mellitus complication detail: with polyneuropathy (3) ESRD (end stage renal disease) Current Visit: No Status: Acute (4) HTN (hypertension) Current Visit: No Status: Acute Qualifiers: Hypertension type: essential hypertension Qualified Code(s): I10 - Essential (primary) hypertension (5) Hyperlipidemia Current Visit: No Status: Acute Qualifiers: Hyperlipidemia type: moderate mixed hyperlipidemia not requiring statin therapy Qualified Code(s): E78.2 - Mixed hyperlipidemia (6) Hypertension Onset Date: 02/16/15 Current Visit: No Status: Acute - Plan Plan: 1. Continue hemodialysis per Nephrology 2. Continue with out of bed and ambulating 3. Physical therapy evaluation 4. Monitor electrolytes 5. Monitor nutritional status 6. GI and DVT prophylaxis Discharge Plan: Other (Rehab) Plan to discharge in: Greater than 2 days - Advance Directives Does patient have a Living Will: No Does patient have a Durable POA for Healthcare: No - Code Status/Comfort Care Code Status Assessed: Yes Code Status: Full Code Critical Care: No Time Spent Managing PTS Care (In Minutes): 35
[2021-01-21] MEDS ORDERED: WATER FOR INJ,STERILE 10 ML IV SCH ×2 (16:00→17:00)
[2021-01-21] MEDS ORDERED: HYDROCORTISONE SUC 100 MG INJ IV ONE (16:00)
[2021-01-21] MEDS ORDERED: WATER FOR INJ,STERILE 10 ML IV ONE (16:00)
[2021-01-21] MEDS: HYDROCORTISONE SUC 100 MG INJ IV SCH (17:40)
--- NOTE | 2021-01-21 18:35 | PN ---
Date of Progress Note: 01/21/2021 Subjective: The patient was admitted with COVID pneumonia. The patient has been on dialysis, tolerating the dialysis very well. The patient has deconditioning. Physical Examination: Vital Signs: When I saw the patient; blood pressure 131/71, pulse of 77, afebrile. Chest: Clear to auscultation. Heart: S1, S2. Systolic murmur. Abdomen: Soft, nontender. Extremity: No edema. Neuro: Alert. No focality. Generalized weakness. Muscle strength 4-3/5. Laboratory Data: H and H 10.10/17.2. Sodium 139, potassium 5, bicarb 25, BUN 21, creatinine 3.8, calcium 8.4. Current Medications: The patient on include; 1. Calcium carbonate. 2. Levaquin. 3. Carvedilol 6.25 b.i.d. 4. Zinc sulfate. 5. Pepcid. 6. Metoclopramide. 7. Tramadol. Assessment And Plan: 1. End-stage renal disease. We will continue the patient as inpatient Monday, Monday, Monday and we will follow up closely. 2. Anemia. Continue MARIKA. 3. Secondary hyperparathyroidism. Continue calcium carbonate. 4. Hypocalcemia, resolved. 5. Bronchitis. Continue Levaquin. 6. Deconditioning. Continue PT/OT. 7. COVID pneumonia as by primary. 8. Hyperkalemia status post dialysis, corrected with dialysis. Time spent discussing with the patient, examining the patient, [id number] withthe patient, placing orders, discussing the case with our produce team member including nursing, discussing the case with the other subspecialty including Cardiology and hospitalist 35 minutes. MUKESH Voice ID: [id number] Report ID: [id number] ADRIA
[2021-01-22] MEDS: HYDROCORTISONE SUC 100 MG INJ IV SCH ×2 (00:44→08:03)
[2021-01-22 05:35] VITALS: BMI 22.1
[2021-01-22 06:19] LABS: Albumin 2.3 g/dL (3.4-5.0); C-Reactive Protein 16.5 mg/L (<3.00); Ferritin 1069.7 ng/mL (26-388); Magnesium 2.1 mg/dL (1.8-2.4); Phosphorus 2.5 mg/dL (2.5-4.9)
[2021-01-22 06:20] LABS: Potassium 5.8 mmol/L (3.5-5.1)
[2021-01-22] MEDS ORDERED: ALBUTEROL 2.5 MG/3 ML NEB SOL NEB ONE (06:30)
[2021-01-22] MEDS ORDERED: GLUCAGON 1 MG/VIAL IM PRN (06:31)
[2021-01-22] MEDS ORDERED: D50W 25 GM/50 ML SYRINGE IV ONE (06:31)
[2021-01-22] MEDS ORDERED: D50W 25 GM/50 ML SYRINGE IV PRN (06:31)
[2021-01-22] MEDS ORDERED: INSULIN -REGULAR HUMAN 50 UNIT/0.5 ML ML IV ONE (06:32)
[2021-01-22] MEDS: carvediloL 6.25 MG TAB PO SCH ×2 (08:04→20:11)
[2021-01-22] MEDS: THIAMINE HCL 100 MG TABLET PO SCH ×2 (08:04→20:10)
[2021-01-22] MEDS: ZINC SULFATE 220 MG CAP PO SCH (08:04)
[2021-01-22] MEDS: VITAMIN D 1000 UNIT TAB PO SCH (08:04)
[2021-01-22] MEDS: INSULIN -REGULAR HUMAN 50 UNIT/0.5 ML ML SQ SCH ×4 (08:05→20:12)
[2021-01-22] MEDS: ASCORBIC ACID 500 MG TABLET PO SCH ×3 (08:05→20:10)
[2021-01-22] MEDS: LACTOBACILLUS/ACIDOPHILUS TAB PO SCH ×3 (08:05→20:10)
[2021-01-22] MEDS: CALCIUM CARBONATE CHEW 500MG TAB PO SCH ×3 (08:06→16:19)
[2021-01-22] MEDS: METOCLOPRAMIDE 5 MG TAB PO SCH ×4 (08:06→20:13)
[2021-01-22] MEDS: GLUCERNA SHAKE 237 ML CAN PO SCH ×2 (08:07→20:11)
--- NOTE | 2021-01-22 08:42 | P.PN ---
Subjective Date of Service: 01/22/21 Chief Complaint: Septic shock, DKA Subjective: No new changes Physical Examination - Vital Signs Temperature: 98.4 F Blood Pressure: 147/64 Pulse: 97 Respirations: 20 Pulse Ox (%): 95 - Physical Exam General: In no apparent distress HEENT: Atraumatic, Normocephalic Neck: Supple Respiratory: Normal air movement Cardiovascular: No rubs, No murmurs Gastrointestinal: Soft and benign - Studies Medications List Reviewed: Yes Assessment And Plan - Plan # ESRD on HD TTS HD today HD again tomorrow per TTS sked EDW 59 kg HD access via a left arm AV graft Monitor renal panel # Septic shock 2/2 infectious colitis +/- UTI +/- covid pna Shock resolved Abx per primary team F/u cultures # DKA; DM2 DKA resolved DM mngt per primary team # Anemia H/H at goal Monitor # Renal osteodystrophy Monitor Ca & Phos # Dispo Dc plan to [facility]
[2021-01-22 09:19] VITALS: O2SAT 94
--- NOTE | 2021-01-22 10:37 | P.PN ---
Date of Service: 01/19/21 Subjective Patient is doing well with no new complaints. Spoke with case management and we're going to try to get rehabilitation to see the patient. Review of Systems 10-point ROS is otherwise unremarkable Physical Examination - Vital Signs Reviewed - Physical Exam General: Alert, In no apparent distress, Oriented x3 Respiratory: Clear to auscultation bilaterally, Normal air movement Cardiovascular: Regular rate/rhythm, Normal S1 S2 Gastrointestinal: Normal bowel sounds, Soft and benign, Non-distended, No tenderness Neurological: Reviewed; patient with generalized weakness Assessment & Plan - Problems (Diagnosis) (1) COVID-19 Current Visit: Yes Status: Acute (2) DM2 (diabetes mellitus, type 2) Current Visit: No Status: Acute Qualifiers: Diabetes mellitus prison insulin use: with prison use Diabetes mellitus complication detail: with polyneuropathy (3) ESRD (end stage renal disease) Current Visit: No Status: Acute (4) HTN (hypertension) Current Visit: No Status: Acute Qualifiers: Hypertension type: essential hypertension Qualified Code(s): I10 - Essential (primary) hypertension (5) Hyperlipidemia Current Visit: No Status: Acute Qualifiers: Hyperlipidemia type: moderate mixed hyperlipidemia not requiring statin therapy Qualified Code(s): E78.2 - Mixed hyperlipidemia (6) Hypertension Onset Date: 02/16/15 Current Visit: No Status: Acute - Plan Plan: 1. Continue hemodialysis per Nephrology 2. Continue with out of bed and ambulating 3. Physical therapy evaluation appreciated 4. Monitor electrolytes 5. Monitor nutritional status 6. Will arrange for inpatient rehab 7. GI and DVT prophylaxis
--- NOTE | 2021-01-22 10:40 | P.PN ---
Date of Service: 01/20/21 Subjective Patient continues to do well with no new complaints. Review of Systems 10-point ROS is otherwise unremarkable Physical Examination - Vital Signs Reviewed - Physical Exam General: Alert, In no apparent distress, Oriented x3 Respiratory: Clear to auscultation bilaterally, Normal air movement Cardiovascular: Regular rate/rhythm, Normal S1 S2 Gastrointestinal: Normal bowel sounds, Soft and benign, Non-distended, No tenderness Neurological: Reviewed; patient with generalized weakness Assessment & Plan - Problems (Diagnosis) (1) COVID-19 Current Visit: Yes Status: Acute (2) DM2 (diabetes mellitus, type 2) Current Visit: No Status: Acute Qualifiers: Diabetes mellitus custodial insulin use: with vermin exterminator use Diabetes mellitus complication detail: with polyneuropathy (3) ESRD (end stage renal disease) Current Visit: No Status: Acute (4) HTN (hypertension) Current Visit: No Status: Acute Qualifiers: Hypertension type: essential hypertension Qualified Code(s): I10 - Essential (primary) hypertension (5) Hyperlipidemia Current Visit: No Status: Acute Qualifiers: Hyperlipidemia type: moderate mixed hyperlipidemia not requiring statin therapy Qualified Code(s): E78.2 - Mixed hyperlipidemia (6) Hypertension Onset Date: 02/16/15 Current Visit: No Status: Acute Plan: Continue with plan of care as mentioned below 1. Continue hemodialysis per Nephrology 2. Continue with out of bed and ambulating 3. Physical therapy evaluation appreciated 4. Monitor electrolytes 5. Monitor nutritional status 6. Will arrange for inpatient rehab 7. GI and DVT prophylaxis
--- NOTE | 2021-01-22 10:43 | P.PN ---
Date of Service: 01/21/21 Subjective Patient continues to improve with no new complaints; clinical symptoms continue to improve Review of Systems 10-point ROS is otherwise unremarkable Physical Examination - Vital Signs Reviewed - Physical Exam General: Alert, In no apparent distress, Oriented x3 Respiratory: Clear to auscultation bilaterally, Normal air movement Cardiovascular: Regular rate/rhythm, Normal S1 S2 Gastrointestinal: Normal bowel sounds, Soft and benign, Non-distended, No tenderness Neurological: Reviewed; patient with generalized weakness Assessment & Plan - Problems (Diagnosis) (1) COVID-19 Current Visit: Yes Status: Acute (2) DM2 (diabetes mellitus, type 2) Current Visit: No Status: Acute Qualifiers: Diabetes mellitus rat exterminator insulin use: with rat exterminator use Diabetes mellitus complication detail: with polyneuropathy (3) ESRD (end stage renal disease) Current Visit: No Status: Acute (4) HTN (hypertension) Current Visit: No Status: Acute Qualifiers: Hypertension type: essential hypertension Qualified Code(s): I10 - Essential (primary) hypertension (5) Hyperlipidemia Current Visit: No Status: Acute Qualifiers: Hyperlipidemia type: moderate mixed hyperlipidemia not requiring statin therapy Qualified Code(s): E78.2 - Mixed hyperlipidemia (6) Hypertension Onset Date: 02/16/15 Current Visit: No Status: Acute Plan: Continue with plan of care as mentioned below 1. Continue hemodialysis per Nephrology 2. Continue with out of bed and ambulating 3. Physical therapy evaluation appreciated 4. Monitor electrolytes 5. Monitor nutritional status 6. Patient blood pressure was low during physical therapy; check orthostatics and his blood pressure is stable at this time. From our point of view patient is stable for transfer to inpatient rehab 7. GI and DVT prophylaxis
[2021-01-22] MEDS ORDERED: MIDODRINE HCL 5 MG TABLET PO ONE (16:00)
[2021-01-22 20:57] VITALS: BP 147/64; TEMP 98.4
[2021-01-22] MEDS ORDERED: predniSONE 20 MG TAB PO SCH (21:00)
[2021-01-22] MEDS ORDERED: MIDODRINE HCL 5 MG TABLET PO SCH (21:00)
--- NOTE | 2021-01-30 09:08 | P.DS ---
Discharge Date: 01/22/21 Disposition: TRANSFER TO INPATIENT REHAB Discharge Condition: GOOD Reason for Admission: Septic shock, DKA Consultations: [employer] - Problems (1) COVID-19 Status: Acute (2) DM2 (diabetes mellitus, type 2) Status: Acute Qualifiers: Diabetes mellitus custodial insulin use: with rn long term care use Diabetes mellitus complication detail: with polyneuropathy (3) ESRD (end stage renal disease) Status: Acute (4) HTN (hypertension) Status: Acute Qualifiers: Hypertension type: essential hypertension Qualified Code(s): I10 - Essential (primary) hypertension (5) Hyperlipidemia Status: Acute Qualifiers: Hyperlipidemia type: moderate mixed hyperlipidemia not requiring statin therapy Qualified Code(s): E78.2 - Mixed hyperlipidemia (6) Hypertension Onset Date: 02/16/15 Status: Acute Brief History of Present Illness: Patient is a 45-year-old male with history of ESRD on HD, diabetes mellitus type 2, hypertension presents emergency department for altered mental status. EMS reports finding patient at home covered in his own urine/feces and altered, blood sugar read high. Patient evaluated in the emergency department, labs significant for sodium 121 chloride 82 CO2 5 BUN 101 creatinine 6.94 GFR 9 glucose 1049 calcium 7.1 pro calcitonin 23.5 white blood cell count 9.1 hemoglobin 11 urine with 20-[address] chest abdomen pelvis demonstrates moderate severity rectosigmoid colitis pattern with possible mild pain colitis in the remainder of the large intestine, possible duodenitis or duodenal thickening, also noted bilateral COVID-19 changes, patient was recently in the hospital for Sim virus, at this time is not having additional oxygen requirement. Initially patient was hypotensive and was given 3 L bolus in the emergency department and required central line for Levophed, concern for septic shock, DKA. ED provider wishes to admit for further evaluation and management. Case was discussed with nephrology while patient was in the emergency department with arranging for patient to receive 3 hr dialysis session stat. Hospital Course: Patient was admitted for further evaluation. Patient was hemodialyzed. Position clinical symptoms improved throughout hospitalization. Clinically, patient is doing well. Patient is working with physical therapy. Patient is stable for transfer to inpatient rehabilitation. Vital Signs/Physical Exam: Temp Pulse Resp BP Pulse Ox 98.4 F 97 H 20 147/64 H 95 01/22/21 20:57 01/22/21 20:57 01/22/21 20:57 01/22/21 20:57 01/22/21 20:57 General: Alert, In no apparent distress, Oriented x3 Laboratory Data at Discharge: WBC Cancelled 01/23/21 04:00 Hgb Cancelled 01/23/21 04:00 Hct Cancelled 01/23/21 04:00 Plt Count Cancelled 01/23/21 04:00 PT 13.9 SECONDS (9.5-12.5) H 01/14/21 13:19 INR 1.21 01/14/21 13:19 APTT 28.6 SECONDS (24.3-36.9) 01/14/21 13:19 Sodium 136 mmol/L (136-145) 01/22/21 04:50 Potassium 5.8 mmol/L (3.5-5.1) H* 01/22/21 04:50 BUN 27 mg/dL (7-18) H 01/22/21 04:50 Creatinine 5.08 mg/dL (0.55-1.3) H* D 01/22/21 04:50 Glucose 320 mg/dL (74-106) H 01/22/21 04:50 Phosphorus 2.5 mg/dL (2.5-4.9) 01/22/21 04:50 Magnesium Cancelled 01/23/21 04:00 Total Bilirubin 0.7 mg/dL (0.2-1.0) 01/14/21 13:19 AST 4 U/L (15-37) L 01/14/21 13:19 ALT 11 U/L (12-78) L 01/14/21 13:19 Alkaline Phosphatase 79 U/L (45-117) 01/14/21 13:19 Triglycerides 287 mg/dL (<150) H 01/15/21 05:40 Cholesterol 136 mg/dL (<200) 01/15/21 05:40 HDL Cholesterol 23 mg/dL (40-60) L 01/15/21 05:40 Cholesterol/HDL Ratio 5.91 01/15/21 05:40 Amylase 46 U/L (25-115) 01/14/21 13:19 Lipase 156 U/L (73-393) 01/14/21 13:19 Home Medications: Apixaban [Eliquis *] 2.5 mg PO BID #60 tablet 01/10/21 Na Bicarb Tab [Sodium Bicarb 325 MG Tab*] 1,950 mg PO BID #60 tab 01/10/21 carvediloL [Coreg*] 6.25 mg PO BID #60 tab 01/10/21 Ascorbic Acid [Vitamin C*] 500 mg PO TID #60 tablet 01/21/21 Calcitrol [Rocaltrol*] 0.5 mcg PO Q48H #14 cap 01/21/21 Calcium Carbonate [Tums Regular*] 1,000 mg PO AC #30 tab 01/21/21 Cholecalciferol (Vitamin D3) [Vitamin D 1000 Iu Tab*] 2,000 unit PO DAILY #30 tab 01/21/21 Glucerna Shake [Glucerna*] 237 ml PO BID #60 can 01/21/21 Metoclopramide [Reglan*] 5 mg PO ACHS #60 tab 01/21/21 Midodrine HCl 5 mg PO BID #60 tablet 01/21/21 Thiamine HCl [Vitamin B-1*] 100 mg PO BID #60 tablet 01/21/21 Zinc Sulfate [Zinc Sulfate*] 220 mg PO DAILY #20 cap 01/21/21 levoFLOXacin [Levaquin*] 250 mg PO Q48H #7 tab 01/21/21 predniSONE [Deltasone*] 10 mg PO BID #10 tab 01/21/21 New Medications: predniSONE [Deltasone*] 10 mg PO BID #10 tab Glucerna Shake [Glucerna*] 237 ml PO BID #60 can levoFLOXacin [Levaquin*] 250 mg PO Q48H #7 tab Midodrine HCl 5 mg PO BID #60 tablet Metoclopramide [Reglan*] 5 mg PO ACHS #60 tab Calcitrol [Rocaltrol*] 0.5 mcg PO Q48H #14 cap Calcium Carbonate [Tums Regular*] 1,000 mg PO AC #30 tab Thiamine HCl [Vitamin B-1*] 100 mg PO BID #60 tablet Ascorbic Acid [Vitamin C*] 500 mg PO TID #60 tablet Cholecalciferol (Vitamin D3) [Vitamin D 1000 Iu Tab*] 2,000 unit PO DAILY #30 tab Zinc Sulfate [Zinc Sulfate*] 220 mg PO DAILY #20 cap Physician Discharge Instructions: PROBLEM: (mobility impairment) GOAL: Increased mobility to return home fully functioning. INSTRUCTIONS: per rehab facility Diet: Renal Activity: Fall precautions IMMUNIZATION Influenza Vaccine Indicated: Influenza Vaccine Given: Date Given: Pneumonia Vaccine Indicated: Pneumonia Vaccine Given: Date Given: OK TO DC IV AND discharge to inpatient rehab FOLLOW-UP WITH PRIMARY CARE PROVIDER IN 1-2 WEEKS FOLLOW-UP WITH Nephrology for hemodialysis CALL or TEXT DR. GORDILLO AT [phone] IF ANY QUESTIONS REGARDING HOSPITAL STAY. PLEASE CALL THE FLOOR AT [phone] IF ANY MEDICATION OR NURSING QUESTIONS. Diet: Renal Activity: Fall precautions Followup: OOT,OOT [Primary Care Provider] - Time spent managing pt's care (in minutes): 35
== END 2021-01-22 20:20 | DRG 871 ==
LOC: ER 12:08 → 3RD-ICU 20:21
PROVIDERS: ADMIT Family Medicine; ATTEND Hospitalist
PROC: 5A1D70Z Performance of Urinary Filtration, Intermittent, Less than 6 Hours Per Day (ICD-10-PCS; principal; 2021-01-15)
DX: A41.89 Other specified sepsis (principal); E11.10 Type 2 diabetes mellitus with ketoacidosis without coma; N18.6 End stage renal disease; G92 Toxic encephalopathy; R65.21 Severe sepsis with septic shock; U07.1 COVID-19; J12.82 Pneumonia due to coronavirus disease 2019; E44.0 Moderate protein-calorie malnutrition; N39.0 Urinary tract infection, site not specified; I12.0 Hypertensive chronic kidney disease with stage 5 chronic kidney disease or end stage renal disease; E11.22 Type 2 diabetes mellitus with diabetic chronic kidney disease; K52.9 Noninfective gastroenteritis and colitis, unspecified; K29.80 Duodenitis without bleeding; K21.9 Gastro-esophageal reflux disease without esophagitis; Z99.2 Dependence on renal dialysis; Z68.22 Body mass index [BMI] 22.0-22.9, adult; Z88.8 Allergy status to other drugs, medicaments and biological substances; Z79.02 Long term (current) use of antithrombotics/antiplatelets; Z79.52 Long term (current) use of systemic steroids; Z79.899 Other long term (current) drug therapy; N25.0 Renal osteodystrophy; D69.6 Thrombocytopenia, unspecified; A41.1 Sepsis due to other specified staphylococcus; E87.6 Hypokalemia; E21.1 Secondary hyperparathyroidism, not elsewhere classified; E11.43 Type 2 diabetes mellitus with diabetic autonomic (poly)neuropathy; K31.84 Gastroparesis; D63.1 Anemia in chronic kidney disease; E78.5 Hyperlipidemia, unspecified; J40 Bronchitis, not specified as acute or chronic; E87.5 Hyperkalemia; I95.1 Orthostatic hypotension
CPT/HCPCS: 36415; 71045; 71250; 74176; 80048; 80061; 80069; 80076; 81015; 82010; 82150; 82272; 82330; 82550; 82553; 82728; 82805; 82947; 83036; 83605; 83690; 83735; 83970; 84100; 84132; 84145; 84439; 84443; 84484; 85025; 85610; 85730; 86140; 86850; 86900; 86901; 87040; 87077; 87086; 87088; 87186; 87205; 87324; 87449; 90935; 93005; 94640; 97110; 97112; 97116; 97161; 97530; 99291; 99292; J0610; J0696; J1644; J1720; J1815; J2405; J3370; J3480; J7030; J7040; J7050; J7512; J7799; U0003

== ENCOUNTER 2021-03-02 16:45 | Emergency (ER) | payer BC ==
--- OUTSIDE RECORDS SUMMARY | 2021-03-02 16:49 | XMS REPORT | Continuity of Care Document ---
:1975 Author Organization [facility] t Address [address] [place] [address] Dr. Lucas. [address] [place] [address] Care Team Providers Name Role Phone Sharpless Primary Care Physician Unavailable Doctor Unassigned, [place] Attending Clinician Unavailable Guero Torres MD Attending Clinician Scot DALTON Attending Clinician Singer RICHARD Attending Clinician Rolando DATLON Attending Clinician Denis DALTON Attending Clinician Keith DALTON Attending Clinician Paulo Martin DO Attending Clinician Tasneem MORENO Attending Clinician Amandeep Jara MD Attending Clinician [phone] [place] Attending Clinician Unavailable Scot DALTON Admitting Clinician Rolando DALTON Admitting Clinician Keith DALTON Admitting Clinician Tasneem MORENO Admitting Clinician Amandeep Jara MD Admitting Clinician [phone] LUCRECIA RENEE Admitting Clinician Unavailable Problems Condition [...] kes - on on 00:00: Medical 00 [place] DKA DKA Disease Active [facility] (diabetic [...] Allergy 3-17 [facility]: [facility] 00 [place] Social History Social Habit Start Date Stop Date Quantity Comments Source Sex Assigned At [facility] Smoking Status Start Date Stop Date Source Never smoker [facility] edical [place] Medications Ordered Filled Start Stop Current Ordering Indication Dosage Frequency Signature Comments Components Source Medication Medication Date Date Medication? Clinician (SIG) Name Name amLODIPine Yes 10mg QD Take [address] (NORVASC) 3-23 by mouth [facility] - 10 MG 19:11: daily. Medical tablet [address] [place] [address] aspirin 81 Yes 81mg QD Take [address] MG chewable 3-23 by mouth [facility] - tablet 19:11: daily. [address] calcium Yes 1{tbl} Q.[id number] Take [address] carbonate 3-23 [id number] tablet by [facility] - (TUMS) 500 19:11: [...] PF 5+ YR 00:00:00 [facility] Procedures Procedure Date / Time Performed Performing Clinician Valeriano butterfield [id number] 2021-01-23 00:00:00 ENCPL 8C5S62A 2021-01-23 00:00:00 ENCPL 5U3W74C 2021-01-23 00:00:00 ENCPL 8V7A98Y 2021-01-23 00:00:00 ENCPL 6U9B80W 2021-01-23 00:00:00 ENCPL 5G5Y33J 2021-01-23 00:00:00 ENCPL 2G0V05O 2021-01-23 00:00:00 ENCPL 3O5Y00V 2021-01-23 00:00:00 ENCPL 8N5G97B 2021-01-23 00:00:00 ENCPL 1J7Y91S 2021-01-23 00:00:00 ENCPL 8S7P97M 2021-01-23 00:00:00 ENCPL 4X7T36Q 2021-01-23 00:00:00 ENCPL 0K9U22D 2021-01-23 00:00:00 ENCPL 6V8B62Z 2021-01-23 00:00:00 ENCPL 0I5W09T 2021-01-23 00:00:00 ENCPL 9H3Y92L 2021-01-23 00:00:00 ENCPL 7S7E73E 2021-01-23 00:00:00 ENCPL 8K8K10D 2021-01-23 00:00:00 ENCPL 2I9L37D 2021-01-23 00:00:00 ENCPL 0U0M56X 2021-01-23 00:00:00 ENCPL 7T0J08A 2021-01-23 00:00:00 ENCPL Encounters Start End Encounter Admission Attending Care Care Encounter Source Date/Time Date/Time Type Type Clinicians Facility Department ID 2020-10-08 2020-10-08 Orders Doctor ALVAREZ 1.2.840.114 [id number] 00:00:00 00:00:00 Only Unassigned, TISHA [id number] [place] [facility] 4.2.7.2.686 [id number] 2019-10-02 2019-10-02 Orders Doctor ALVAREZ 1.2.840.114 [id number] 00:00:00 00:00:00 Only [facility]igned[id number] [facility] [id number] 2019-06-05 2019-06-06 Emergency Mariajose Torresval Jack [facility] 1.2.840 .114 [id number] 07:59:43 14:59:00 Mak Ellison [id number] [place] 4.2.7.2.686 [place] [id number] 2019-06-01 2019-06-01 Emergency Luca Jackson [facility] 1.2.840. 114 [id number] 06:56:22 17:52:00 Jesus Marshall [id number] [place] 4.2.7.2.686 [place] [address] [id number] 082019-05-28 2019-05-28 Emergency Andrey Barrios [facility] 1.2.840. 114 [id number] 07:49:46 20:40:00 Jesus Marshall [id number] [place] 4.2.7.2.686 [place] [address] [id number] 2019-05-24 2019-05-24 Emergency Andrey Barrios [facility] 1.2.840. 114 [id number] 07:36:09 16:15:00 James Parker [id number] [place] 4.2.7.2.686 [place] [address] [id number] 2019-05-20 2019-05-20 Emergency Flower Martin [facility] 1.2.8 40.114 [id number] 07:34:17 19:50:00 James Parker [id number] [place] [address] [place] [id number] 2019-05-15 2019-05-15 Emergency Luca Jackson [facility] 1.2.840. 114 [id number] 07:17:11 18:48:00 Jesus Marshall [id number] [place] 4.2.7.2.686 [place] [address] [id number] 2019-05-09 2019-05-11 Emergency Nancy Torres [facility] 1.2.840 .114 [id number] 07:23:22 15:03:00 Jesus Marshall [id number] [place] 4.2.7.2.686 [place] [address] [id number] 2019-05-07 2019-05-07 Emergency Denis [facility] 1.2.421.213 [id number] 06:36:08 08:19:00 Andrey Castrejon [id number] [place] 4.2.7.2.686 [place] [address] [id number] 2019-05-03 2019-05-03 Emergency Andrey Barrios [place] 1.2.840. 114 [id number] 07:04:51 19:40:00 Caleb Boateng Lucía [id number] [place] 4.2.7.2.686 [place] [address] [id number] 2019-04-29 2019-04-29 Emergency Nancy Torres [facility] 1.2.840 .114 [id number] 06:03:54 16:18:00 MarioLuly butterfield Justynaromegan Aladdin [id number] [place] 4.2.7.2.686 [place] [address] [id number] 2019-04-24 2019-04-24 Emergency Flower Martin [facility] 1.2.8 40.114 [id number] 07:32:53 17:15:00 Mak Ellison [id number] [place] 4.2.7.2.686 [place] [address] [id number] 2019-04-20 2019-04-20 Emergency Andrey Barrios [facility] 1.2.840. 114 [id number] 07:35:56 21:13:00 Mak Ellison [id number] [place] 4.2.7.2.686 [place] [address] [id number] 2019-04-15 2019-04-15 Emergency Andrey Barrios [facility] 1.2.840. 114 [id number] 06:12:02 17:50:00 Tasneem Caleb Lucía [id number] [place] 4.2.7.2.686 [place] [address] [id number] Results Test Description Test Time Test Comments Results Result Comments Source BLOOD CULTURE 2016-12-09 11:00:00 Test Item Value Reference Range Interpretation Comme nts CULTURE (BEAKER) (test code = 1095) No growth in 5 days BLOOD [id number] 11:00:00 Test Item Value Reference Range Interpretation Comments CULTURE (BEAKER) (test No growth in 5 days code = 1095) ISLET CELL AB [id number] 09:29:00 Test Item Value Reference Range Interpretation Comments ISLET CELL AB See individual AUTOVERIFICATION (test panel test results. code = 2556) POCT-GLUCOSE [id number] 17:52:00 Test Item Value Reference Range Interpretation Comments POC-GLUCOSE METER 360 mg/dL 70-110 H TESTED AT [facility] 6720 ([facility]) (test code = HAL Mai [facility] 1538) [address] CLOSTRIDIUM DIFFICILE TOXIN [id number] 14:10:00 Test Item Value Reference Range Interpretation Comments CLOSTRIDIUM DIFFICILE TOXIN, PCR Not Detected Not Detected ([facility]) (test code = 1525) This qualitative [...] of a positive result is not recommended.POCT-GLUCOSE [id number] 13:02:00 Test Item Value Reference Range Interpretation Comments POC-GLUCOSE METER 265 mg/dL 70-110 H TESTED AT [facility] 6720 ([facility]) (test code = [facility] Pau [facility] 1538) [address] POCT-GLUCOSE [id number] 07:13:00 Test Item Value Reference Range Interpretation Comments POC-GLUCOSE METER 70 mg/dL 70-110 TESTED AT [facility] 6720 ([facility]) (test code = [facility] [address] 1538) VANCOMYCIN LEVEL, [id number] 06:54:00 Test Item Value Reference Range Interpretation Comments VANCOMYCIN RANDOM ([facility]) (test 15.2 ug/mL code = 523) Reference Range: No NormalsBASIC METABOLIC [id number] 06:41:00 Test Item Value Reference Range Interpretation [...] NOT APPLICABLE FOR DIALYSIS PATIEN TS. POCT-GLUCOSE [id number] 06:40:00 Test Item Value Reference Range Interpretation Comments POC-GLUCOSE METER 44 mg/dL 70-110 L Notified R Manny DALTON/TESTED AT (BEAKER) (test code = [facility] 6720 [place] 1538) [facility] 7703 0 POCT-GLUCOSE [id number] 06:36:00 Test Item Value Reference Range Interpretation Comments POC-GLUCOSE METER 54 mg/dL 70-110 L Notified R Manny DALTON/TESTED AT (BEAKER) (test code = [facility] [address] 1538) [facility] 7703 0 BASIC METABOLIC [id number] 06:35:00 Test Item Value Reference Range Interpretation [...] NOT APPLICABLE FOR DIALYSIS PATIEN TS. POCT-GLUCOSE [id number] 21:14:00 Test Item Value Reference Range Interpretation Comments POC-GLUCOSE METER 396 mg/dL 70-110 H Notified R N MD/TESTED ([facility]) (test code = AT [facility] [address] [place], [place] [address]) [facility] 7703 0 POCT-GLUCOSE [id number] 18:02:00 Test Item Value Reference Range Interpretation Comments POC-GLUCOSE METER 363 mg/dL 70-110 H Notified R N MD/TESTED ([facility]) (test code = AT [place] [id number]) [facility] 7703 0 BLOOD [id number] 18:00:00 Test Item Value Reference Range Interpretation Comments CULTURE (BEAKER) (test No growth in 5 days code = 1095) BLOOD [id number] 18:00:00 Test Item Value Reference Range Interpretation Comments CULTURE (BEAKER) (test No growth in 5 days code = 1095) POCT-GLUCOSE [id number] 13:08:00 Test Item Value Reference Range Interpretation Comments POC-GLUCOSE METER 188 mg/dL 70-110 H TESTED AT [facility] 6720 ([facility]) (test code = HAL Mai [place] [address]) [address] POCT-GLUCOSE [id number] 11:42:00 Test Item Value Reference Range Interpretation Comments POC-GLUCOSE METER 194 mg/dL 70-110 H TESTED AT [facility] 6720 ([facility]) (test code = HAL Mai [facility] 1538) [address] VANCOMYCIN LEVEL, [id number] 09:58:00 Test Item Value Reference Range Interpretation Comments VANCOMYCIN RANDOM (BEAKER) (test 12.9 ug/mL code = 523) Reference Range: No NormalsTo be drawn BEFORE dialysis in the dialysis unit. Thank youPOCT-GLUCOSE [id number] 08:52:00 Test Item Value Reference Range Interpretation Comments POC-GLUCOSE METER 272 mg/dL 70-110 H TESTED AT [place] [address] ([facility]) (test code = HAL [place] 1538) [address] BASIC METABOLIC [id number] 05:09:00 Test Item Value Reference Range Interpretation [...] NOT APPLICABLE FOR DIALYSIS PATIEN TS. POCT-GLUCOSE [id number] 21:32:00 Test Item Value Reference Range Interpretation Comments POC-GLUCOSE METER 388 mg/dL 70-110 H TESTED AT [place] 407[address]20 ([facility]) (test code = HAL Mai [facility] 1538) [address] POCT-GLUCOSE [id number] 18:31:00 Test Item Value Reference Range Interpretation Comments POC-GLUCOSE METER 247 mg/dL 70-110 H TESTED AT [place] [address] (BEAKER) (test code = [facility]DAVID Mai [facility] 1538) [address] POCT-GLUCOSE [id number] 10:58:00 Test Item Value Reference Range Interpretation Comments POC-GLUCOSE METER 213 mg/dL 70-110 H TESTED AT [place] [address] (BEAKER) (test code = [facility]DAVID Mai [facility] 1538) [address] CBC W/PLT COUNT & AUTO [id number] 07:02:00 Test Item Value Reference Range Interpretation [...] K/ L 0.00-0.20 (test code = 417) 0.00BASI METABOLIC [id number] 06:25:00 Test Item Value Reference Range Interpretation [...] S NOT APPLICABLE FOR DIALYSIS PATIEN TS. [id number] 06:24:00 Test Item Value Reference Range Interpretation Comments PHOSPHORUS (BEAKER) (test code = 3.8 mg/dL 2.3-4.7 604) [id number] 06:24:00 Test Item Value Reference Range Interpretation Comments MAGNESIUM (BEAKER) (test code = 2.2 mg/dL 1.6-2.6 627) POCT-GLUCOSE [id number] 21:55:00 Test Item Value Reference Range Interpretation Comments POC-GLUCOSE METER 270 mg/dL 70-110 H TESTED AT [place] [address] ([facility]) (test code = [facility] 1538) [address] POCT-GLUCOSE [id number] 18:12:00 Test Item Value Reference Range Interpretation Comments POC-GLUCOSE METER 124 mg/dL 70-110 H TESTED AT [place] [address] ([facility]) (test code = [facility] 1538) [address] POCT-GLUCOSE [id number] 16:27:00 Test Item Value Reference Range Interpretation Comments POC-GLUCOSE METER 135 mg/dL 70-110 H TESTED AT [place] [address] ([facility]) (test code = [facility] 1538) [address] POCT-GLUCOSE [id number] 14:10:00 Test Item Value Reference Range Interpretation Comments POC-GLUCOSE METER 219 mg/dL 70-110 H TESTED AT [facility] 6720 ([facility]) (test code = [facility] 1538) [address] POCT-GLUCOSE [id number] 12:01:00 Test Item Value Reference Range Interpretation Comments POC-GLUCOSE METER 162 mg/dL 70-110 H TESTED AT [place] [address] ([facility]) (test code = [facility] 1538) [address] POCT-GLUCOSE [id number] 09:51:00 Test Item Value Reference Range Interpretation Comments POC-GLUCOSE METER 220 mg/dL 70-110 H TESTED AT [place] [address] ([facility]) (test code = [facility] 1538) [address] POCT-GLUCOSE [id number] 07:48:00 Test Item Value Reference Range Interpretation Comments POC-GLUCOSE METER 151 mg/dL 70-110 H TESTED AT [place] [address] ([facility]) (test code = [facility] 1538) [address] BASIC METABOLIC [id number] 07:36:00 Test Item Value Reference Range Interpretation [...] NOT APPLICABLE FOR DIALYSIS PATIEN TS. POCT-GLUCOSE [id number] 07:06:00 Test Item Value Reference Range Interpretation Comments POC-GLUCOSE METER 98 mg/dL 70-110 TESTED AT [place] [address] ([facility]) (test code = HAL Mai [facility] [address] 1538) POCT-GLUCOSE [id number] 06:27:00 Test Item Value Reference Range Interpretation Comments POC-GLUCOSE METER 63 mg/dL 70-110 L TESTED AT [place] [address] ([facility]) (test code = [facility] [place] [facility] [address] 1538) VANCOMYCIN LEVEL, [id number] 04:31:00 Test Item Value Reference Range Interpretation Comments VANCOMYCIN RANDOM (BEAKER) (test 20.8 ug/mL code = 523) Reference Range: No [id number] 04:20:00 Test Item Value Reference Range Interpretation Comments PHOSPHORUS (BEAKER) (test code = 5.4 mg/dL 2.3-4.7 H 604) [id number] 04:20:00 Test Item Value Reference Range Interpretation Comments MAGNESIUM (BEAKER) (test code = 2.1 mg/dL 1.6-2.6 627) POCT-GLUCOSE [id number] 04:16:00 Test Item Value Reference Range Interpretation Comments POC-GLUCOSE METER 99 mg/dL 70-110 TESTED AT [place] [address] ([facility]) (test code = [facility] [place] [facility] [address] 1538) CBC W/PLT COUNT & AUTO [id number] 04:07:00 Test Item Value Reference Range Interpretation [...] L 0.00-0.20 (test code = 417) 0.00POCT-GLUCOSE [id number] 02:10:00 Test Item Value Reference Range Interpretation Comments POC-GLUCOSE METER 132 mg/dL 70-110 H TESTED AT [facility] 6720 (BEAKER) (test code = HAL Mai [facility] 1538) [address] SPUTUM CULTURE + GRAM [id number] 00:32:00 Test Item Value Reference Range Interpretation Comments CULTURE (BEAKER) 4+ Normal respiratory (test code = 1095) jenelle present GRAM STAIN RESULT 3+ White blood cells (BEAKER) (test code = seen 1123) GRAM STAIN RESULT 0-5 epithelial cells (BEAKER) (test code = 37592) GRAM STAIN RESULT 2+ gram negative rods (BEAKER) (test code = 60053) GRAM STAIN RESULT 3+ gram positive rods (BEAKER) (test code = 256394) GRAM STAIN RESULT 2+ gram positive cocci (BEAKER) (test code = in pairs and clusters 410725) POCT-GLUCOSE [id number] 00:15:00 Test Item Value Reference Range Interpretation Comments POC-GLUCOSE METER 193 mg/dL 70-110 H TESTED AT [place] [address] (BEAKER) (test code = [facility] aPu [facility] 1538) [address] POCT-GLUCOSE [id number] 22:22:00 Test Item Value Reference Range Interpretation Comments POC-GLUCOSE METER 170 mg/dL 70-110 H TESTED AT [place] [address] ([facility]) (test code = [facility] 1538) [address] POCT-GLUCOSE [id number] 20:17:00 Test Item Value Reference Range Interpretation Comments POC-GLUCOSE METER 179 mg/dL 70-110 H TESTED AT [place] [address] ([facility]) (test code = [facility] 1538) [address] BASIC METABOLIC [id number] 19:00:00 Test Item Value Reference Range Interpretation [...] NOT APPLICABLE FOR DIALYSIS PATIEN TS. POCT-GLUCOSE [id number] 18:27:00 Test Item Value Reference Range Interpretation Comments POC-GLUCOSE METER 150 mg/dL 70-110 H TESTED AT [place] [address] ([facility]) (test code = [facility] 1538) [address] POCT-GLUCOSE [id number] 15:58:00 Test Item Value Reference Range Interpretation Comments POC-GLUCOSE METER 219 mg/dL 70-110 H TESTED AT [place] [address] ([facility]) (test code = HAL Mai [facility] 1538) [address] POCT-GLUCOSE [id number] 14:26:00 Test Item Value Reference Range Interpretation Comments POC-GLUCOSE METER 212 mg/dL 70-110 H TESTED AT [place] [address] ([facility]) (test code = HAL Mai [facility] 1538) [address] POCT-GLUCOSE [id number] 12:23:00 Test Item Value Reference Range Interpretation Comments POC-GLUCOSE METER 261 mg/dL 70-110 H TESTED AT [place] [address] ([facility]) (test code = HAL Mai [facility] 1538) [address] POCT-GLUCOSE [id number] 10:19:00 Test Item Value Reference Range Interpretation Comments POC-GLUCOSE METER 323 mg/dL 70-110 H TESTED AT [place] [address] ([facility]) (test code = HAL Mai [facility] 1538) [address] POCT-GLUCOSE [id number] 08:24:00 Test Item Value Reference Range Interpretation Comments POC-GLUCOSE METER 235 mg/dL 70-110 H TESTED AT [place] [address] ([facility]) (test code = HAL Mai [facility] 1538) [address] POCT-GLUCOSE [id number] 07:10:00 Test Item Value Reference Range Interpretation Comments POC-GLUCOSE METER 244 mg/dL 70-110 H TESTED AT [place] [address] ([facility]) (test code = HAL Mai [facility] 1538) [address]161 POCT-GLUCOSE [id number] 06:15:00 Test Item Value Reference Range Interpretation Comments POC-GLUCOSE METER 249 mg/dL 70-110 H TESTED AT [place] [address] ([facility]) (test code = HAL Mai [facility] 1538) [address] CBC W/PLT COUNT & AUTO [id number] 06:05:00 Test Item Value Reference Range Interpretation Comments WHITE BLOOD CELL COUNT ([facility]) 11.1 K/ L 4.0-10.0 H (test code = 775) RED BLOOD CELL COUNT ([facility]) 3.12 M/ L 4.20-5.80 L (test code [...] K/ L 0.00-0.20 (test code = 417) 0.00BASI METABOLIC [id number] 05:11:00 Test Item Value Reference Range Interpretation [...] S NOT APPLICABLE FOR DIALYSIS PATIEN TS. [id number] 05:05:00 Test Item Value Reference Range Interpretation Comments MAGNESIUM (BEAKER) 2.3 mg/dL 1.6-2.6 Specimen slightly (test code = 627) hemolyzed [id number] 05:05:00 Test Item Value Reference Range Interpretation Comments PHOSPHORUS (BEAKER) 5.9 mg/dL 2.3-4.7 H Specimen slightly (test code = 604) hemolyzed POCT-GLUCOSE [id number] 04:02:00 Test Item Value Reference Range Interpretation Comments POC-GLUCOSE METER 187 mg/dL 70-110 H TESTED AT [facility] 6720 (BEAKER) (test code = [place] 1538) [address] POCT-GLUCOSE [id number] 02:22:00 Test Item Value Reference Range Interpretation Comments POC-GLUCOSE METER 163 mg/dL 70-110 H TESTED AT [facility] 6720 (BEAKER) (test code = [place] 1538) [address] POCT-GLUCOSE [id number] 00:54:00 Test Item Value Reference Range Interpretation Comments POC-GLUCOSE METER 239 mg/dL 70-110 H TESTED AT [facility] 6720 (BEAKER) (test code = [place] 1538) [address] POCT-GLUCOSE [id number] 00:11:00 Test Item Value Reference Range Interpretation Comments POC-GLUCOSE METER 29 mg/dL 70-110 LL TESTED AT [place] [address] ([facility]) (test code = HAL Mai [facility] [address] 1538) POCT-GLUCOSE [id number] 21:35:00 Test Item Value Reference Range Interpretation Comments POC-GLUCOSE METER 100 mg/dL 70-110 TESTED AT [place] [address] ([facility]) (test code = MAIDAHI [place] 1538) [address] POCT-GLUCOSE [id number] 20:24:00 Test Item Value Reference Range Interpretation Comments POC-GLUCOSE METER 57 mg/dL 70-110 L TESTED AT [place] [address] ([facility]) (test code = [facility] [place] [facility] [address] 1538) BASIC METABOLIC [id number] 18:11:00 Test Item Value Reference Range Interpretation [...] NOT APPLICABLE FOR DIALYSIS PATIEN TS. POCT-GLUCOSE [id number] 17:33:00 Test Item Value Reference Range Interpretation Comments POC-GLUCOSE METER 87 mg/dL 70-110 TESTED AT [place] [address] (BEAKER) (test code = HAL Mai [facility] [address] 1538) POCT-GLUCOSE [id number] 17:33:00 Test Item Value Reference Range Interpretation Comments POC-GLUCOSE METER 54 mg/dL 70-110 L Notified R N MD/TESTED AT (BEAKER) (test code = [facility] [address]) [place] [address] POCT-GLUCOSE [id number] 14:05:00 Test Item Value Reference Range Interpretation Comments POC-GLUCOSE METER 159 mg/dL 70-110 H TESTED AT [facility] [address] (BEAKER) (test code = HAL Mai [facility] 1538) [id number] POCT-GLUCOSE [id number] 12:26:00 Test Item Value Reference Range Interpretation Comments POC-GLUCOSE METER 247 mg/dL 70-110 H TESTED AT [place] [id number] (BEAKER) (test code = HAL Mai [facility] 1538) [address] BASIC METABOLIC [id number] 11:20:00 Test Item Value Reference Range Interpretation [...] S NOT APPLICABLE FOR DIALYSIS PATIEN TS. [id number] 11:14:00 Test Item Value Reference Range Interpretation Comments MAGNESIUM (BEAKER) (test code = 2.2 mg/dL 1.6-2.6 627) CBC W/PLT COUNT & AUTO [id number] 11:14:00 Test Item Value Reference Range Interpretation [...] L 0.00-0.20 (test code = 417) 0.00POCT-GLUCOSE [id number] 10:17:00 Test Item Value Reference Range Interpretation Comments POC-GLUCOSE METER 172 mg/dL 70-110 H TESTED AT [place] [address] ([facility]) (test code = HAL Mai [place] 1538) [address] POCT-GLUCOSE [id number] 10:17:00 Test Item Value Reference Range Interpretation Comments POC-GLUCOSE METER 167 mg/dL 70-110 H TESTED AT [place] [address] ([facility] [facility]) (test code = [place] 1538) [id number] POCT-GLUCOSE [id number] 10:17:00 Test Item Value Reference Range Interpretation Comments POC-GLUCOSE METER 176 mg/dL 70-110 H TESTED AT [place] [address] ([facility]) (test code = [facility] [place] [facility] 1538) [id number] 08:17:00 Test Item Value Reference Range Interpretation Comments FERRITIN ([facility]) (test code = 361) 347 ng/mL 5-275 [...] IRON BINDING CAPACITY 181 ug/dL 250-450 L ([facility]) (test code = 769) IRON % SATURATION (2) (BEAKER) 6 % 20-55 L (test code = 2590) VANCOMYCIN LEVEL, [id number] 06:52:00 Test Item Value Reference Range Interpretation Comments VANCOMYCIN RANDOM (BEAKER) (test 12.8 ug/mL code = 523) Reference Range: No NormalsHold further dosing for vancomycin level > 20, alert MD and RphPOCT-GLUCOSE [id number] 06:16:00 Test Item Value Reference Range Interpretation Comments POC-GLUCOSE METER 179 mg/dL 70-110 H TESTED AT [place] [address] ([facility]) (test code = [place] 1538) [address] POCT-GLUCOSE [id number] 05:08:00 Test Item Value Reference Range Interpretation Comments POC-GLUCOSE METER 185 mg/dL 70-110 H TESTED AT [facility] 6720 (BEAKER) (test code = [place] 1538) [address] PTH, [id number] 05:01:00 Test Item Value Reference Range Interpretation Comments PARATHYROID HORMONE INTACT 114.5 pg/mL 8.5-72.5 H (BEAKER) (test code = 577) Effective 08/05/2014: Reference Range ChangeNew: 8.5-72.5 Previous: 15.0-90.0 BASIC METABOLIC [id number] 04:53:00 Test Item Value Reference Range Interpretation [...] S NOT APPLICABLE FOR DIALYSIS PATIEN TS. [id number] 04:52:00 Test Item Value Reference Range Interpretation Comments PHOSPHORUS (BEAKER) (test code = 3.4 mg/dL 2.3-4.7 604) POCT-GLUCOSE [id number] 04:18:00 Test Item Value Reference Range Interpretation Comments POC-GLUCOSE METER 134 mg/dL 70-110 H TESTED AT [facility] 6720 (BEAKER) (test code = [place] 1538) [id number] POCT-GLUCOSE [id number] 03:10:00 Test Item Value Reference Range Interpretation Comments POC-GLUCOSE METER 161 mg/dL 70-110 H TESTED AT [place] [id number] ([facility]) (test code = [place] 1538) [address] POCT-GLUCOSE [id number] 02:13:00 Test Item Value Reference Range Interpretation Comments POC-GLUCOSE METER 173 mg/dL 70-110 H TESTED AT [place] [address] (BEAKER) (test code = [place] 1538) [address] BASIC METABOLIC [id number] 01:40:00 Test Item Value Reference Range Interpretation [...] NOT APPLICABLE FOR DIALYSIS PATIEN TS. POCT-GLUCOSE [id number] 01:10:00 Test Item Value Reference Range Interpretation Comments POC-GLUCOSE METER 114 mg/dL 70-110 H TESTED AT [place] [id number] (BEAKER) (test code = [facility] [place] 1538) [address] POCT-GLUCOSE [id number] 00:44:00 Test Item Value Reference Range Interpretation Comments POC-GLUCOSE METER 152 mg/dL 70-110 H TESTED AT [place] [address] (BEAKER) (test code = [facility] [place] 1538) [address] POCT-GLUCOSE [id number] 23:07:00 Test Item Value Reference Range Interpretation Comments POC-GLUCOSE METER 162 mg/dL 70-110 H TESTED AT [place] [address] (BEAKER) (test code = [facility] 1538) [address] POCT-GLUCOSE [id number] 22:12:00 Test Item Value Reference Range Interpretation Comments POC-GLUCOSE METER 115 mg/dL 70-110 H TESTED AT [place] [address] (BEAKER) (test code = [facility] 1538) [address] POCT-GLUCOSE [id number] 21:20:00 Test Item Value Reference Range Interpretation Comments POC-GLUCOSE METER 88 mg/dL 70-110 TESTED AT [place] [address] (BEAKER) (test code = [facility] [address]38) POCT-GLUCOSE [id number] 20:10:00 Test Item Value Reference Range Interpretation Comments POC-GLUCOSE METER 109 mg/dL 70-110 TESTED AT [place] [address] (BEAKER) (test code = [facility] 1538) [address] HEPATITIS B SURFACE [id number] 19:53:00 Test Item Value Reference Range Interpretation Comments HEPATITIS B SURFACE ANTIGEN (2) Nonreactive Nonreactive (BEAKER) (test code = 2585) BASIC METABOLIC [id number] 19:35:00 Test Item Value Reference Range Interpretation [...] NOT APPLICABLE FOR DIALYSIS PATIEN TS. POCT-GLUCOSE [id number] 19:14:00 Test Item Value Reference Range Interpretation Comments POC-GLUCOSE METER 179 mg/dL 70-110 H TESTED AT [facility] 6720 (BEAKER) (test code = [place] 1538) [address] POCT-GLUCOSE [id number] 17:57:00 Test Item Value Reference Range Interpretation Comments POC-GLUCOSE METER 173 mg/dL 70-110 H TESTED AT [facility] 6720 (BEAKER) (test code = [facility] 1538) [address] BASIC METABOLIC [id number] 16:42:00 Test Item Value Reference Range Interpretation [...] NOT APPLICABLE FOR DIALYSIS PATIEN TS. POCT-GLUCOSE [id number] 15:59:00 Test Item Value Reference Range Interpretation Comments POC-GLUCOSE METER 289 mg/dL 70-110 H TESTED AT [facility] 6720 (BEAKER) (test code = [facility] 1538) [address] POCT-GLUCOSE [id number] 15:23:00 Test Item Value Reference Range Interpretation Comments POC-GLUCOSE METER 296 mg/dL 70-110 H TESTED AT [facility] 6720 (BEAKER) (test code = [facility] 1538) [address] POCT-GLUCOSE [id number] 15:23:00 Test Item Value Reference Range Interpretation Comments POC-GLUCOSE METER 342 mg/dL 70-110 H TESTED AT [place] [address] (BEAKER) (test code = [facility] [place] 1538) [address] BASIC METABOLIC [id number] 12:33:00 Test Item Value Reference Range Interpretation [...] NOT APPLICABLE FOR DIALYSIS PATIEN TS. POCT-GLUCOSE [id number] 12:23:00 Test Item Value Reference Range Interpretation Comments POC-GLUCOSE METER 231 mg/dL 70-110 H TESTED AT [place] [address] (BEAKER) (test code = [facility] 1538) [address] HEMOGLOBIN [id number] 11:38:00 Test Item Value Reference Range Interpretation Comments HEMOGLOBIN A1C (BEAKER) (test code = 9.9 % 4.3-6.1 H 368) POCT-GLUCOSE [id number] 11:09:00 Test Item Value Reference Range Interpretation Comments POC-GLUCOSE METER 212 mg/dL 70-110 H TESTED AT [place] [address] ([facility]) (test code = [facility] 1538) [address] BASIC METABOLIC [id number] 10:52:00 Test Item Value Reference Range Interpretation [...] S NOT APPLICABLE FOR DIALYSIS PATIEN TS. [id number] 10:31:00 Test Item Value Reference Range Interpretation Comments MAGNESIUM (BEAKER) (test code = 2.4 mg/dL 1.6-2.6 627) POCT-GLUCOSE [id number] 10:17:00 Test Item Value Reference Range Interpretation Comments POC-GLUCOSE METER 202 mg/dL 70-110 H TESTED AT [facility] 6720 (BEAKER) (test code = [place] 1538) [address] TROPONIN [id number] 10:16:00 Test Item Value Reference Range Interpretation [...] acute neurological disease, and persistent tachyarrhythmia.BLOOD GAS, [id number] 09:27:00 Test Item Value Reference Range Interpretation [...] (test code = 1819) 21.0 % POCT-GLUCOSE [id number] 09:19:00 Test Item Value Reference Range Interpretation Comments POC-GLUCOSE METER 179 mg/dL 70-110 H TESTED AT [place] [address] ([facility]) (test code = [place] 1538) [address] LACTIC ACID, VENOUS, WHOLE [id number] 09:13:00 Test Item Value Reference Range Interpretation Comments LACTATE BLOOD VENOUS (2) (BEAKER) 1.5 mmol/L 0.5-2.2 (test code = 2872) Effective 01/20/2016: Units/Reference Range ChangeNew: 0.5-2.2 mmol/L Previous: 5-20 mg/dLKETONE, [id number] 08:51:00 Test Item Value Reference Range Interpretation Comments KETONES, BLOOD (BEAKER) (test code 0.0 mmol/L <0.4 = 1103) POCT-GLUCOSE [id number] 08:08:00 Test Item Value Reference Range Interpretation Comments POC-GLUCOSE METER 211 mg/dL 70-110 H TESTED AT [place] [address] ([facility]) (test code = [place] 1538) [address] POCT-GLUCOSE [id number] 07:30:00 Test Item Value Reference Range Interpretation Comments POC-GLUCOSE METER 230 mg/dL 70-110 H TESTED AT [place] [address] ([facility]) (test code = [place] 1538) [address] POCT-GLUCOSE [id number] 06:05:00 Test Item Value Reference Range Interpretation Comments POC-GLUCOSE METER 349 mg/dL 70-110 H Notified R Manny DALTON/TESTED (BEAKER) (test code = AT [facility] 6720 [facility] 1538) [facility] [address] [id number] 05:46:00 Test Item Value Reference Range Interpretation Comments GLUCOSE RANDOM (BEAKER) (test code 472 mg/dL 70-105 HH = 652) Effective 08/05/2014: Reference Range Change-Adult onlyNew: 70-105 Previous: 70-110If last glucose was less than 500, may do bedside glucose instead of serum glucose.[id number] 05:31:00 Test Item Value Reference Range Interpretation Comments POTASSIUM (BEAKER) (test code = 4.8 meq/L 3.5-5.1 379) If last glucose was less than 500, may do bedside glucose instead of serum glucose.KETONE, [id number] 05:16:00 Test Item Value Reference Range Interpretation Comments KETONES, BLOOD (BEAKER) (test code 0.0 mmol/L <0.4 = 1103) POCT-GLUCOSE [id number] 05:00:00 Test Item Value Reference Range Interpretation Comments POC-GLUCOSE METER 456 mg/dL 70-110 HH TESTED AT [place] [id number] (BEAKER) (test code = BERTDAVID R [facility] 1538) [address] POCT-GLUCOSE [id number] 04:08:00 Test Item Value Reference Range Interpretation Comments POC-GLUCOSE METER > mg/dL 70-110 HH OUTSIDE ME ASURING (BEAKER) (test code RANGETES CSAANDRA AT [place] [address] = 1538) [place]EL [facility] [address] [id number] 03:41:00 Test Item Value Reference Range Interpretation Comments GLUCOSE RANDOM (BEAKER) (test code 705 mg/dL 70-105 HH = 652) Effective 08/05/2014: Reference Range Change-Adult onlyNew: 70-105 Previous: 70-110If last glucose was less than 500, may do bedside glucose instead of serum glucose.URINALYSIS W/ REFLEX URINE [id number] 03:02:00 Test Item Value Reference Range Interpretation [...] code = 1584) SOURCE(BEAKER) (test code = 5195) [id number] 02:51:00 Test Item Value Reference Range Interpretation Comments GLUCOSE RANDOM (BEAKER) (test code 684 mg/dL 70-105 HH = 652) Effective 08/05/2014: Reference Range Change-Adult onlyNew: 70-105 Previous: 70-110If last glucose was less than 500, may do bedside glucose instead of serum glucose.COMPREHENSIVE METABOLIC [id number] 02:51:00 Test Item Value Reference Range Interpretation [...] may do bedside glucose instead of serum glucose.[id number] 02:50:00 Test Item Value Reference Range Interpretation Comments THYROID STIMULATING HORMONE 2.15 uIU/mL 0.35-4.94 (BEAKER) (test code = 772) [id number] 02:45:00 Test Item Value Reference Range Interpretation Comments MAGNESIUM (BEAKER) (test code = 2.0 mg/dL 1.6-2.6 627) [id number] 02:45:00 Test Item Value Reference Range Interpretation Comments PHOSPHORUS (BEAKER) (test code = 4.4 mg/dL 2.3-4.7 604) CREATINE KINASE (CK), TOTAL AND [id number] 02:41:00 Test Item Value Reference Range Interpretation Comments CREATINE KINASE TOTAL (BEAKER) 140 U/L 29-200 (test code = 380) CREATINE KINASE-MB (BEAKER) (test 7.2 ng/mL 0.0-6.6 H code = 750) CREATINE KINASE-MB INDEX (BEAKER) 5.1 % (test code = 395) Effective 08/05/2014: CK-MB Reference Range ChangeNew: 0.0-6.6 Previous: 0.0-4.9CK-MB Reference Range:<6.7 Normal6.7-10.0 Borderline>10.0 AbnormalTROPONIN [id number] 02:36:00 Test Item Value Reference Range Interpretation [...] renalfailure, acidosis, acute neurological disease, and persistent tachyarrhythmia.[id number] 02:31:00 Test Item Value Reference Range Interpretation Comments POTASSIUM (BEAKER) (test code = 4.8 meq/L 3.5-5.1 379) If last glucose was less than 500, may do bedside glucose instead of serum glucose.CBC W/PLT COUNT & AUTO [id number] 02:31:00 Test Item Value Reference Range Interpretation [...] 0.00-0.20 (test code = 417) 0.000.640.000.580.000.000.000.00BLOOD GAS, [id number] 02:26:00 Test Item Value Reference Range Interpretation [...] 1819) 30.0 % LACTIC ACID, ARTERIAL, WHOLE [id number] 02:25:00 Test Item Value Reference Range Interpretation Comments LACTATE BLOOD ARTERIAL (2) 4.9 mmol/L 0.5-2.2 H (ANTONIO) (test code = 2874) Effective 01/20/2016: Units/Reference Range ChangeNew: 0.5-2.2 mmol/L Previous: 5-20 mg/dLPOCT-GLUCOSE [id number] 02:18:00 Test Item Value Reference Range Interpretation Comments POC-GLUCOSE METER 493 mg/dL 70-110 HH TESTED AT [facility] 6720 (ANTONIO) (test code = [place] 1538) [address] [id number] 02:17:00 Test Item Value Reference Range Interpretation Comments PARTIAL THROMBOPLASTIN TIME 25.3 seconds 22.5-36.0 (ANTONIO) (test code = 760) PROTHROMBIN TIME/[id number] 02:16:00 Test Item Value Reference Range Interpretation Comments PROTIME (ANTONIO) (test code = 13.2 seconds 11.7-14.7 759) INR ([facility]) (test code = 370) 1.0 <=5.9 RECOMMENDED COUMADIN/WARFARIN INR THERAPY RANGESSTANDARD DOSE: 2.0 - 3.0 Includes: PROPHYLAXIS forvenous thrombosis, systemic embolization; TREATMENT for venous thrombosis and/or pulmonary embolus.HIGH RISK: Target INR is 2.5-3.5 for patients with mechanical heart valves.
[2021-03-02 17:27] LABS: Absolute Lymphocytes (CBC) 0.7 K/uL (0.7-4.9); Basophils % 1.4 % (0-1.3); Lymphocytes % 9.4 % (15.3-44.8); RBC Red Blood Cell Count 3.82 M/uL (4.33-5.43)
[2021-03-02 17:32] LABS: Albumin 2.9 g/dL (3.4-5.0); Bilirubin Direct 0.1 mg/dL (0-0.2); Bilirubin Total 0.4 mg/dL (0.2-1.0); Magnesium 2.3 mg/dL (1.8-2.4); Potassium 4.3 mmol/L (3.5-5.1); Protein, Total 6.5 g/dL (6.4-8.2)
--- NOTE | 2021-03-02 19:57 | EDPHYS ---
Physician Documentation [facility] [place], [place] Name: Orlando Culp Age: 45 yrs Sex: Male : 1975 Arrival Date: 03/02/2021 Time: 16:45 Bed 5 Private MD: ED Physician Tyler Meyers HPI: 03/02 16:55 This 45 yrs old Male presents to ER via Ambulatory with complaints of Low cp Blood Sugar. 16:55 The patient or guardian reports hypoglycemia, that was potentially precipitated by not cp eating since breakfast this morning. 16:55 Onset: The symptoms/episode began/occurred just prior to arrival. cp 16:55 Associated signs and symptoms: Pertinent negatives: vomiting, chest pain, seizure cp activity. EMS reports patient had just completed dialysis when he became lightheaded and lost consciousness briefly. EMS reports blood sugar of 41 initially. Historical: - Allergies: 16:48 PENICILLINS; ss 16:48 Phenergan; ss 16:49 PENICILLINS; ld1 16:49 Phenergan; ld1 - PMHx: 16:48 Diabetes - IDDM; ESRD; GERD; Hypertension; ss 16:49 Diabetes - IDDM; ESRD; GERD; Hypertension; ld1 - Immunization history:: Adult Immunizations up to date, Adult Immunizations up to date. - Social history:: Smoking status: Patient denies any tobacco usage or history of. Smoking status: Patient denies any tobacco usage or history of. ROS: 17:00 Constitutional: Negative for body aches, chills, fever, poor PO intake. cp 17:00 Eyes: Negative for acute changes. cp 17:00 Cardiovascular: Negative for chest pain, palpitations. 17:00 Respiratory: Negative for cough, shortness of breath, wheezing. 17:00 Abdomen/GI: Negative for abdominal pain, nausea, vomiting, and diarrhea, constipation, black/tarry stool. 17:00 Neuro: Negative for altered mental status, headache, weakness. 17:00 All other systems are negative. Exam: 17:10 ECG was reviewed by the Attending Physician. cp 17:10 Constitutional: The patient appears in no acute distress, alert, awake, cp non-diaphoretic, non-toxic, well developed, frail. 17:10 Head/Face: Normocephalic, atraumatic. cp 17:10 Eyes: Periorbital structures: appear normal, Pupils: left pupil reactive to light and accommodation, Conjunctiva: normal, no exudate, no injection, Lids and lashes: appear normal, bilaterally. 17:10 ENT: External ear(s): are unremarkable, Nose: is normal, Mouth: Lips: moist, Oral mucosa: moist, Posterior pharynx: Airway: no evidence of obstruction, patent. 17:10 Neck: ROM/movement: is normal, is supple, without pain, no range of motions limitations. 17:10 Chest/axilla: Inspection: normal, Palpation: is normal, no crepitus, no tenderness. 17:10 Cardiovascular: Rate: normal, Rhythm: regular, Edema: is not appreciated, JVD: is not appreciated. 17:10 Respiratory: the patient does not display signs of respiratory distress, Respirations: normal, no use of accessory muscles, labored breathing, is not present, Breath sounds: are clear throughout, no decreased breath sounds. 17:10 Abdomen/GI: Inspection: abdomen appears normal, Palpation: abdomen is soft and non-tender, in all quadrants. 17:10 Neuro: Orientation: to person, place \T\ time. Mentation: is normal, Motor: moves all fours, strength is normal. Vital Signs: 16:49 BP 117 / 57; Pulse 82; Resp 20; Pulse Ox 99% on R/A; ld1 17:00 Temp 97.9(O); tw2 17:17 BP 135 / 118; Pulse 90; Resp 18; Pulse Ox 100% on R/A; Pain 0/10; ld1 18:07 BP 144 / 76; Pulse 85; Resp 17; Pulse Ox 100% on R/A; ld1 18:45 BP 164 / 57; Pulse 86; Resp 18; Pulse Ox 99% on R/A; ld1 19:30 BP 171 / 70; Pulse 86; Resp 18 S; Pulse Ox 99% on R/A; ad5 MDM: 16:48 Patient medically screened. rip 17:00 Differential diagnosis: DKA, hyperglycemia, hypoglycemic episode, cardiac arrythmia, cp electrolyte abnormality. 19:56 Data reviewed: vital signs, nurses notes, lab test result(s), EKG, radiologic studies, cp CT scan. 19:56 Test interpretation: by ED physician or midlevel provider: ECG. Counseling: I had a cp detailed discussion with the patient and/or guardian regarding: the historical points, exam findings, and any diagnostic results supporting the discharge/admit diagnosis, lab results, to return to the emergency department if symptoms worsen or persist or if there are any questions or concerns that arise at home. Response to treatment: the patient's symptoms have markedly improved after treatment, and as a result, I will discharge patient. 03/02 16:47 Order name: Basic Metabolic Panel 03/02 16:47 Order name: CBC with Diff 03/02 16:47 Order name: LFT's; Complete Time: 18:39 03/02 18:39 Interpretation: Normal except: ALB 2.9; GLOB 3.6; A/G 0.8. 03/02 16:47 Order name: Magnesium; Complete Time: 18:39 03/02 16:47 Order name: Basic Metabolic Panel; Complete Time: 18:39 EDMS 03/02 18:39 Interpretation: Normal except: NA 135; GLUC 232; BUN 21; CRE 4.09; GFR 16. 03/02 16:47 Order name: CBC with Automated Diff; Complete Time: 18:39 EDMS 03/02 18:40 Interpretation: Normal except: RBC 3.82; HGB 11.9; HCT 37.0; PLT 138; RDW 16.0; KAITLYNN% cp 76.9; LYM% 9.4; BASO% 1.4. 03/02 16:47 Order name: EKG; Complete Time: 16:47 03/02 16:47 Order name: Cardiac monitoring; Complete Time: 16:52 03/02 16:47 Order name: EKG - Nurse/Tech; Complete Time: 17:20 03/02 16:47 Order name: IV Saline Lock; Complete Time: 16:52 03/02 16:47 Order name: Labs collected and sent; Complete Time: 17:20 03/02 17:19 Order name: Diet Renal; Complete Time: 17:20 03/02 17:26 Order name: Glucose, Ancillary Testing; Complete Time: 18:39 EDMS 03/02 19:46 Order name: Glucose, Ancillary Testing; Complete Time: 19:55 EDMS 03/02 16:47 Order name: O2 Per Protocol; Complete Time: 16:52 03/02 16:47 Order name: O2 Sat Monitoring; Complete Time: 16:52 cp 03/02 19:15 Order name: Accucheck Blood Glucose; Complete Time: 19:36 cp EC:10 Rate is 88 beats/min. Rhythm is regular. ID interval is normal. QRS interval is normal. cp QT interval is normal. T waves are Inverted in lead aVR. Interpreted by me. Reviewed by me. Administered Medications: No medications were administered Point of Care Testing: Blood Glucose: 17:19 Blood Glucose: 150 mg/dL; ld1 Ranges: Critical Glucose Levels:Adult <50 mg/dl or >400 mg/dl <40 mg/dl or >180 mg/dl Disposition: 20:45 Chart complete. cp 03/03 08:05 Co-signature as Attending Physician, Tyler Meyers MD I agree with the assessment and rip plan of care. Disposition: 03/02/21 19:57 Discharged to Home. Impression: Hypoglycemia, unspecified. - Condition is Stable. - Discharge Instructions: Hypoglycemia, Blood Glucose Monitoring, Adult. - Medication Reconciliation Form, Thank You Letter, Antibiotic Education, Prescription Opioid Use form. - Follow up: Private Physician; When: 1 - 2 days; Reason: Recheck today's complaints. - Problem is new. - Symptoms have improved. Signatures: Dispatcher [employer] EDMS Tyler Meyers MD MD cha Smirch, Shelby, RN RN Tyler Turner PA PA Karyn Diaz RN RN ld1 Jeet Fierro ad5 Corrections: (The following items were deleted from the chart) 03/02 20:40 19:57 03/02/2021 19:57 Discharged to Home. Impression: Hypoglycemia, unspecified. ad5 Condition is Stable. Forms are Medication Reconciliation Form, Thank You Letter, Antibiotic Education, Prescription Opioid Use. Follow up: Private Physician; When: 1 - 2 days; Reason: Recheck today's complaints. Problem is new. Symptoms have improved. cp 03/03 17:51 03/02 16:55 EMS reports patient had just completed dialysis when he became lightheaded cp and lost consciousness briefly. EMS reports blood sugar of. cp
--- NOTE | 2021-03-02 19:57 | ER ---
Nurse's Notes [facility] Name: Orlando Culp Age: 45 yrs Sex: Male : 1975 Arrival Date: 03/02/2021 Time: 16:45 Bed 5 Private MD: Diagnosis: Hypoglycemia, unspecified Presentation: 03/02 16:45 Chief complaint: EMS states: low blood sugar after completing dialysis session. Initial ss BGL was 41. After 15g oral glucose given, increased bgl to 54. 12.5g D10 given IV. Repeat BGL is 223. Pt has no complaints at this time, and reports that he is feeling better. Only ate breakfast today. Coronavirus screen: Client denies travel out of the [place] in the last 14 days. Ebola Screen: Patient denies exposure to infectious person. Patient denies travel to an Ebola-affected area in the 21 days before illness onset. Initial Sepsis Screen: Does the patient meet any 2 criteria? No. Patient's initial sepsis screen is negative. Does the patient have a suspected source of infection? No. Patient's initial sepsis screen is negative. Risk Assessment: Do you want to hurt yourself or someone else? Patient reports no desire to harm self or others. Onset of symptoms was March 02, 2021. Care prior to arrival: IV initiated. 22 GA, in the left ankle. 16:45 Method Of Arrival: Ambulatory ss 16:45 Acuity: DEMARIO 3 ss Historical: - Allergies: 16:48 PENICILLINS; ss 16:48 Phenergan; ss 16:49 PENICILLINS; ld1 16:49 Phenergan; ld1 - PMHx: 16:48 Diabetes - IDDM; ESRD; GERD; Hypertension; ss 16:49 Diabetes - IDDM; ESRD; GERD; Hypertension; ld1 - Immunization history:: Adult Immunizations up to date, Adult Immunizations up to date. - Social history:: Smoking status: Patient denies any tobacco usage or history of. Smoking status: Patient denies any tobacco usage or history of. Screenin:49 Abuse screen: Denies threats or abuse. Denies injuries from another. Nutritional ld1 screening: No deficits noted. Tuberculosis screening: No symptoms or risk factors identified. Fall Risk IV access (20 points). Total Hendricks Fall Scale indicates No Risk (0-24 pts). Assessment: 16:45 General: Appears in no apparent distress. comfortable, Behavior is calm, cooperative, ld1 appropriate for age. Pain: Denies pain. Neuro: Level of Consciousness is awake, alert, obeys commands, Oriented to person, place, time, situation, Appropriate for age. Neuro: Reports weakness since after leaving dialysis today at 1600. Cardiovascular: Capillary refill < 3 seconds Patient's skin is warm and dry. Respiratory: Airway is patent Respiratory effort is even, unlabored, Respiratory pattern is regular, symmetrical. GI: Abdomen is flat, non-distended. : No signs and/or symptoms were reported regarding the genitourinary system. : Reports incontinence. EENT: No signs and/or symptoms were reported regarding the EENT system. Derm: No signs and/or symptoms reported regarding the dermatologic system. Musculoskeletal: No signs and/or symptoms reported regarding the musculoskeletal system. 17:17 Reassessment: Patient appears in no apparent distress at this time. No changes from ld1 previously documented assessment. Patient is alert, oriented x 3, equal unlabored respirations, skin warm/dry/pink. Patient denies pain at this time. 18:07 Reassessment: Patient appears in no apparent distress at this time. Patient and/or ld1 family updated on plan of care and expected duration. Pain level reassessed. Patient is alert, oriented x 3, equal unlabored respirations, skin warm/dry/pink. 18:45 Reassessment: Patient appears in no apparent distress at this time. No changes from ld1 previously documented assessment. Patient and/or family updated on plan of care and expected duration. Pain level reassessed. Patient is alert, oriented x 3, equal unlabored respirations, skin warm/dry/pink. Patient denies pain at this time. 19:30 Reassessment: Patient appears in no apparent distress at this time. Patient and/or ad5 family updated on plan of care and expected duration. Pain level reassessed. Patient is alert, oriented x 3, equal unlabored respirations, skin warm/dry/pink. 20:26 Reassessment: Patient and/or family updated on plan of care and expected duration. Pain ea level reassessed. Patient is alert, oriented x 3, equal unlabored respirations, skin warm/dry/pink. Discharge instruction given to patient verbalized the understanding of instruction. Pt attempting to call ride. Vital Signs: 16:49 BP 117 / 57; Pulse 82; Resp 20; Pulse Ox 99% on R/A; ld1 17:00 Temp 97.9(O); tw2 17:17 BP 135 / 118; Pulse 90; Resp 18; Pulse Ox 100% on R/A; Pain 0/10; ld1 18:07 BP 144 / 76; Pulse 85; Resp 17; Pulse Ox 100% on R/A; ld1 18:45 BP 164 / 57; Pulse 86; Resp 18; Pulse Ox 99% on R/A; ld1 19:30 BP 171 / 70; Pulse 86; Resp 18 S; Pulse Ox 99% on R/A; ad5 ED Course: 16:45 Patient arrived in ED. ss 16:45 Karyn Diaz, KAELA is Primary Nurse. ld1 16:46 Tyler Turner PA is PHCP. cp 16:46 Tyler Meyers MD is Attending Physician. cp 16:48 Triage completed. ss 16:48 Arm band placed on right wrist. ss 16:49 Patient has correct armband on for positive identification. Bed in low position. Call ld1 light in reach. Side rails up X2. surveillance monitor on. Pulse ox on. NIBP on. Door closed. Noise minimized. Warm blanket given. 16:49 No provider procedures requiring assistance completed. Maintain EMS IV. Dressing ld1 intact. Good blood return noted. Site clean \T\ dry. Gauge \T\ site: 20 G Left foot. 17:20 Basic Metabolic Panel Sent. ld1 20:26 IV discontinued, intact, bleeding controlled. ea Administered Medications: No medications were administered Point of Care Testing: Blood Glucose: 17:19 Blood Glucose: 150 mg/dL; ld1 Ranges: Outcome: 19:57 Discharge ordered by MD. cp 20:25 Condition: stable ea 20:25 Discharge instructions given to patient, Instructed on discharge instructions, follow up and referral plans. Demonstrated understanding of instructions, follow-up care. 20:39 Discharged to home via wheelchair, with family. ad5 20:40 Patient left the ED. ad5 Signatures: Jo-Ann Corrigan RN RN ss Tyler Turner PA PA cp Danelle Moran RN RN tw2 Jerri Nevarez RN RN ea Karyn Diaz RN RN ld1 Jeet Fierro ad5
[2021-03-02 20:45] VITALS: TEMP 97.9
[2021-03-02 20:51] VITALS: O2SAT 99
[2021-03-02 20:52] VITALS: BP 171/70
== END 2021-03-02 20:40 | disposition home or self-care (01) ==
LOC: ER 16:45
DX: E11.649 Type 2 diabetes mellitus with hypoglycemia without coma (principal); E11.22 Type 2 diabetes mellitus with diabetic chronic kidney disease; I12.0 Hypertensive chronic kidney disease with stage 5 chronic kidney disease or end stage renal disease; N18.6 End stage renal disease; Z88.0 Allergy status to penicillin; Z88.8 Allergy status to other drugs, medicaments and biological substances
CPT/HCPCS: 36415; 80048; 80076; 82947; 83735; 85025; 93005

== ENCOUNTER 2021-04-17 14:48 | Emergency (ER) | payer BC ==
--- OUTSIDE RECORDS SUMMARY | 2021-04-17 14:52 | XMS REPORT | Continuity of Care Document ---
:1975 Author Organization [facility] t Address [address] [place] [address] Dr. Lucas. [address] [place] [address] Care Team Providers Name Role Phone [facility] Primary Care Physician Unavailable Doctor Unassigned, [place] Attending Clinician Unavailable Guero Torres MD Attending Clinician Scot DALTON Attending Clinician Singer RICHARD Attending Clinician Rolando DALTON Attending Clinician Denis DALTON Attending Clinician Keith DALTON Attending Clinician Paulo Martin DO Attending Clinician Tasneem MORENO Attending Clinician Amandeep Jara MD Attending Clinician [phone] [place] RENEE Attending Clinician Unavailable Scot DALTON Admitting Clinician Rolando DALTON Admitting Clinician Keith DALTON Admitting Clinician Tasneem MORENO Admitting Clinician Amandeep Jara MD Admitting Clinician [phone] LUCRECIA RENEE Admitting Clinician Unavailable Problems Condition [...] kes - on on 00:00: Medical 00 [place] DKA DKA Disease Active [facility] (diabetic [...] t 3-17 [facility] 00 [place] Allergies, Adverse Reactions, Alerts Allergy Allergy Status Severity Reaction(s) Onset Inactive Treating Comm ents Source Name Type Date Date Clinician Penicill Drug Active [facility] ins Allergy 3-17 [facility]: Medical 00 [place] Social History Social Habit Start Date Stop Date Quantity Comments Source Sex Assigned At [facility] Smoking Status Start Date Stop Date Source Never smoker [facility] edical [place] Medications Ordered Filled Start Stop Current Ordering Indication Dosage Frequency Signature Comments Components Source Medication Medication Date Date Medication? Clinician (SIG) Name Name amLODIPine Yes 10mg QD Take [address] (NORVASC) 3-23 by mouth [facility] - 10 MG 19:11: daily. Medical tablet 22 [place] aspirin 81 Yes 81mg QD Take [address] MG chewable 3-23 by mouth [facility] - tablet 19:11: daily. Medical [address] [place] [address] calcium Yes 1{tbl} [id number] Take [address] [facility] [address] carbonate 3-23 [id number] tablet by [facility] - (TUMS) 500 19:11: [...] / Time Performed Performing Clinician Valeriano butterfield [id number] 2021-01-23 00:00:00 ENCPL 2D6Q79Y 2021-01-23 00:00:00 ENCPL 5E1A85B 2021-01-23 00:00:00 ENCPL 3M9K78H 2021-01-23 00:00:00 ENCPL 4S7J38J 2021-01-23 00:00:00 ENCPL 0E1Q74T 2021-01-23 00:00:00 ENCPL 8K1U02P 2021-01-23 00:00:00 ENCPL 1A4Z01M 2021-01-23 00:00:00 ENCPL 2B7Y83B 2021-01-23 00:00:00 ENCPL 6Z3A12Z 2021-01-23 00:00:00 ENCPL 1G5V65W 2021-01-23 00:00:00 ENCPL 0K9C55U 2021-01-23 00:00:00 ENCPL 6X8E35V 2021-01-23 00:00:00 ENCPL 5X2S57G 2021-01-23 00:00:00 ENCPL 6N1K78Z 2021-01-23 00:00:00 ENCPL 1M3Y34I 2021-01-23 00:00:00 ENCPL 7Q8T80Z 2021-01-23 00:00:00 ENCPL 2Y5Q72V 2021-01-23 00:00:00 ENCPL 8S9A84S 2021-01-23 00:00:00 ENCPL 9Z4Y91X 2021-01-23 00:00:00 ENCPL 0O4E30V 2021-01-23 00:00:00 ENCPL Encounters Start End Encounter Admission Attending Care Care Encounter Source Date/Time Date/Time Type Type Clinicians Facility Department ID 2020-10-08 2020-10-08 Orders Doctor ALVAREZ 1.2.840.114 [id number] 00:00:00 00:00:00 Only Unassigned, TISHA [id number] [place] [facility] 4.2.7.2.686 [id number] 2019-10-02 2019-10-02 Orders Doctor ALVAREZ [id number] 00:00:00 00:00:00 Only UnassignedTISHA [id number] [facility] 4.2.7.2.686 [id number] 2019-06-05 2019-06-06 Emergency Nancy Torres [facility] 1.2.840 .114 [id number] 07:59:43 14:59:00 Mak Ellison [id number] [place] 4.2.7.2.686 [place] [id number] 082019-06-01 2019-06-01 Emergency Luca Jackson [facility] 1.2.840. 114 [id number] 06:56:22 17:52:00 Jesus Marshall [id number] [place] 4.2.7.2.686 [place] [address] [id number] 2019-05-28 2019-05-28 Emergency Andrey Barrios [facility] 1.2.840. 114 [id number] 07:49:46 20:40:00 Jesus Marshall [id number] [place] 4.2.7.2.686 [place] [address] [id number] 2019-05-24 2019-05-24 Emergency Andrey Barrios [facility] 1.2.840. 114 [id number] 07:36:09 16:15:00 James Parker [id number] [place] 4.2.7.2.686 [place] [address] [id number] 082019-05-20 2019-05-20 Emergency Flower Martin [facility] 1.2.8 40.114 [id number] 07:34:17 19:50:00 James Parker [id number] [place] 4.2.7.2.686 [place] [address] [id number] 2019-05-15 2019-05-15 Emergency Luca Jackson [facility] 1.2.840. 114 [id number] 07:17:11 18:48:00 Jesus Marshall [id number] [place] 4.2.7.2.686 [place] [address] [id number] 2019-05-09 2019-05-11 Emergency Nancy Torres [facility] 1.2.840 .114 [id number] 07:23:22 15:03:00 Jesus Marshall [id number] [place] 4.2.7.2.686 [place] [address] [id number] 2019-05-07 2019-05-07 Emergency Denis [facility] [id number] 06:36:08 08:19:00 Andrey Castrejon 350.1.13.10 [place] 4.2.7.2.686 [place] [address] [id number] 2019-05-03 2019-05-03 Emergency Andrey Barrios [place] 1.2.840. 114 [id number] 07:04:51 19:40:00 Caleb Boateng Lucía [id number] [place] 4.2.7.2.686 [place] [address] [id number] 2019-04-29 2019-04-29 Emergency Nancy Torres [facility] 1.2.840 .114 [id number] 06:03:54 16:18:00 EstefaniBebejackelyn Alejandraaromegan Etlan 350.1.13.10 [place] 4.2.7.2.686 [place] [address] [id number] [facility] 2019-04-24 2019-04-24 Emergency Flower Martin [facility] 1.2.8 40.114 [id number] 07:32:53 17:15:00 Mak Ellison [id number] [place] [address] [place] [id number] [facility] 2019-04-20 2019-04-20 Emergency Andrey Barrios [facility] 1.2.840. 114 [id number] 07:35:56 21:13:00 Mak Ellison [id number] [place] 4.2.7.2.686 [place] [address] [id number] 2019-04-15 2019-04-15 Emergency Andrey Barrios [facility] 1.2.840. 114 [id number] 06:12:02 17:50:00 Tasneem Caleb Lucía [id number] [place] [id number] [place] [address] [id number] Results Test Description Test Time Test Comments Results Result Comments Source BLOOD CULTURE 2016-12-09 11:00:00 Test Item Value Reference Range Interpretation Comme nts CULTURE (BEAKER) (test code = 1095) No growth in 5 days BLOOD [id number] 11:00:00 Test Item Value Reference Range Interpretation Comments CULTURE (BEAKER) (test No growth in 5 days code = 1095) ISLET CELL AB [id number] 09:29:00 Test Item Value Reference Range Interpretation Comments ISLET CELL AB See individual AUTOVERIFICATION (test panel test results. code = 2556) POCT-GLUCOSE [id number] 17:52:00 Test Item Value Reference Range Interpretation Comments POC-GLUCOSE METER 360 mg/dL 70-110 H TESTED AT [place] [address] ([facility]) (test code = [facility] 1538) [address] CLOSTRIDIUM DIFFICILE TOXIN [id number] 14:10:00 Test Item Value Reference Range Interpretation Comments CLOSTRIDIUM DIFFICILE TOXIN, PCR Not Detected Not Detected ([facility]) (test code = 1525) This qualitative [...] of a positive result is not recommended.POCT-GLUCOSE [id number] 13:02:00 Test Item Value Reference Range Interpretation Comments POC-GLUCOSE METER 265 mg/dL 70-[address] [facility] 67 ([facility]) (test code = [facility] 1538) [address] POCT-GLUCOSE [id number] 07:13:00 Test Item Value Reference Range Interpretation Comments POC-GLUCOSE METER 70 mg/dL 70-110 TESTED AT [place] [address] ([facility]) (test code = [facility] [address] 1538) VANCOMYCIN LEVEL, [id number] 06:54:00 Test Item Value Reference Range Interpretation Comments VANCOMYCIN RANDOM ([facility]) (test 15.2 ug/mL code = 523) Reference Range: No NormalsBASIC METABOLIC [id number] 06:41:00 Test Item Value Reference Range Interpretation [...] NOT APPLICABLE FOR DIALYSIS PATIEN TS. POCT-GLUCOSE [id number] 06:40:00 Test Item Value Reference Range Interpretation Comments POC-GLUCOSE METER 44 mg/dL 70-110 L Notified R Manny DALTON/TESTED AT (BEAKER) (test code = [facility] 67[address] [facility] 1538) [facility] 7703 0 POCT-GLUCOSE [id number] 06:36:00 Test Item Value Reference Range Interpretation Comments POC-GLUCOSE METER 54 mg/dL 70-110 L Notified R Manny DALTON/TESTED AT (BEAKER) (test code = [facility] 67[address] [facility] 1538) [facility] 7703 0 BASIC METABOLIC [id number] 06:35:00 Test Item Value Reference Range Interpretation [...] NOT APPLICABLE FOR DIALYSIS PATIEN TS. POCT-GLUCOSE [id number] 21:14:00 Test Item Value Reference Range Interpretation Comments POC-GLUCOSE METER 396 mg/dL 70-110 H Notified R N MD[facility]TESTED [facility] (test code = AT [facility] [address] [place], [place] [address]) [facility] 7703 0 POCT-GLUCOSE [id number] 18:02:00 Test Item Value Reference Range Interpretation Comments POC-GLUCOSE METER 363 mg/dL 70-110 H Notified R N MD/TESTED ([facility]) (test code = AT [place] [address]) [facility] 7703 0 BLOOD [id number] 18:00:00 Test Item Value Reference Range Interpretation Comments CULTURE (BEAKER) (test No growth in 5 days code = 1095) BLOOD [id number] 18:00:00 Test Item Value Reference Range Interpretation Comments CULTURE (BEAKER) (test No growth in 5 days code = 1095) POCT-GLUCOSE [id number] 13:08:00 Test Item Value Reference Range Interpretation Comments POC-GLUCOSE METER 188 mg/dL 70-[address] [facility] 6720 ([facility]) (test code = HAL P[place] [address]) [address] POCT-GLUCOSE [id number] 11:42:00 Test Item Value Reference Range Interpretation Comments POC-GLUCOSE METER 194 mg/dL 70-[address] [facility] 6720 ([facility]) (test code = HAL [place] [address]) [address] VANCOMYCIN LEVEL, [id number] 09:58:00 Test Item Value Reference Range Interpretation Comments VANCOMYCIN RANDOM (BEAKER) (test 12.9 ug/mL code = 523) Reference Range: No NormalsTo be drawn BEFORE dialysis in the dialysis unit. Thank youPOCT-GLUCOSE [id number] 08:52:00 Test Item Value Reference Range Interpretation Comments POC-GLUCOSE METER 272 mg/dL 70-[address] [facility] 6720 [facility] (test code = [facility] [place] 1538) [address] BASIC METABOLIC [id number] 05:09:00 Test Item Value Reference Range Interpretation [...] NOT APPLICABLE FOR DIALYSIS PATIEN TS. POCT-GLUCOSE [id number] 21:32:00 Test Item Value Reference Range Interpretation Comments POC-GLUCOSE METER 388 mg/dL 70-110 H TESTED AT [place] [address] (BEAKER) (test code = [facility] [place] [facility] 1538) [address] POCT-GLUCOSE [id number] 18:31:00 Test Item Value Reference Range Interpretation Comments POC-GLUCOSE METER 247 mg/dL 70-110 H TESTED AT [place] [address] (BEAKER) (test code = [facility] [place] [facility] 1538) [address] POCT-GLUCOSE [id number] 10:58:00 Test Item Value Reference Range Interpretation Comments POC-GLUCOSE METER 213 mg/dL 70-110 H TESTED AT [place] [address] (BEAKER) (test code = [facility] [place] [facility] 1538) [address] CBC W/PLT COUNT & AUTO [id number] 07:02:00 Test Item Value Reference Range Interpretation [...] 0.00-0.20 (test code = 417) 0.00BASI METABOLIC [id number] 06:25:00 Test Item Value Reference Range Interpretation [...] GFR I S NOT APPLICABLE FOR DIALYSIS PATIMARGARITA TS. [id number] 06:24:00 Test Item Value Reference Range Interpretation Comments PHOSPHORUS (BEAKER) (test code = 3.8 mg/dL 2.3-4.7 604) [id number] 06:24:00 Test Item Value Reference Range Interpretation Comments MAGNESIUM (BEAKER) (test code = 2.2 mg/dL 1.6-2.6 627) POCT-GLUCOSE [id number] 21:55:00 Test Item Value Reference Range Interpretation Comments POC-GLUCOSE METER 270 mg/dL 70-110 H TESTED AT [place] [address] (BEAKER) (test code = HAL [place] [facility] 1538) [address] POCT-GLUCOSE [id number] 18:12:00 Test Item Value Reference Range Interpretation Comments POC-GLUCOSE METER 124 mg/dL 70-110 H TESTED AT [place] [address] (BEAKER) (test code = [place] [facility] 1538) [address] POCT-GLUCOSE [id number] 16:27:00 Test Item Value Reference Range Interpretation Comments POC-GLUCOSE METER 135 mg/dL 70-110 H TESTED AT [place] [address] (BEAKER) (test code = [place] [facility] 1538) [address] POCT-GLUCOSE [id number] 14:10:00 Test Item Value Reference Range Interpretation Comments POC-GLUCOSE METER 219 mg/dL 70-110 H TESTED AT [place] [address] ([facility] (test code = [facility] 1538) [address] POCT-GLUCOSE [id number] 12:01:00 Test Item Value Reference Range Interpretation Comments POC-GLUCOSE METER 162 mg/dL 70-110 H TESTED AT [place] [address] ([facility]) (test code = [facility] 1538) 24011 POCT-GLUCOSE [id number] 09:51:00 Test Item Value Reference Range Interpretation Comments POC-GLUCOSE METER 220 mg/dL 70-110 H TESTED AT [place] [address] ([facility]) (test code = [facility] 1538) [address]142 POCT-GLUCOSE [id number] 07:48:00 Test Item Value Reference Range Interpretation Comments POC-GLUCOSE METER 151 mg/dL 70-110 H TESTED AT [place] [address] ([facility]) (test code = [facility] 1538) [address] BASIC METABOLIC [id number] 07:36:00 Test Item Value Reference Range Interpretation [...] NOT APPLICABLE FOR DIALYSIS PATIEN TS. POCT-GLUCOSE [id number] 07:06:00 Test Item Value Reference Range Interpretation Comments POC-GLUCOSE METER 98 mg/dL 70-110 TESTED AT [place] [address] ([facility]) (test code = HAL [place] [facility] [address] 1538) POCT-GLUCOSE [id number] 06:27:00 Test Item Value Reference Range Interpretation Comments POC-GLUCOSE METER 63 mg/dL 70-110 L TESTED AT [place] [address] ([facility]) (test code = [facility] [place] [facility] [address] 1538) VANCOMYCIN LEVEL, [id number] 04:31:00 Test Item Value Reference Range Interpretation Comments VANCOMYCIN RANDOM (BEAKER) (test 20.8 ug/mL code = 523) Reference Range: No [id number] 04:20:00 Test Item Value Reference Range Interpretation Comments PHOSPHORUS (BEAKER) (test code = 5.4 mg/dL 2.3-4.7 H 604) [id number] 04:20:00 Test Item Value Reference Range Interpretation Comments MAGNESIUM (BEAKER) (test code = 2.1 mg/dL 1.6-2.6 627) POCT-GLUCOSE [id number] 04:16:00 Test Item Value Reference Range Interpretation Comments POC-GLUCOSE METER 99 mg/dL 70-110 TESTED AT [place] [address] ([facility]) (test code = [facility] [address] 1538) CBC W/PLT COUNT & AUTO [id number] 04:07:00 Test Item Value Reference Range Interpretation [...] L 0.00-0.20 (test code = 417) 0.00POCT-GLUCOSE [id number] 02:10:00 Test Item Value Reference Range Interpretation Comments POC-GLUCOSE METER 132 mg/dL 70-[address] [facility] 6720 (BEAKER) (test code = [place] 1538) [address] SPUTUM CULTURE + GRAM [id number] 00:32:00 Test Item Value Reference Range Interpretation Comments CULTURE (BEAKER) 4+ Normal respiratory (test code = 1095) jenelle present GRAM STAIN RESULT 3+ White blood cells (BEAKER) (test code = seen 1123) GRAM STAIN RESULT 0-5 epithelial cells (BEAKER) (test code = 57542) GRAM STAIN RESULT 2+ gram negative rods (BEAKER) (test code = 86226) GRAM STAIN RESULT 3+ gram positive rods (BEAKER) (test code = 859998) GRAM STAIN RESULT 2+ gram positive cocci (BEAKER) (test code = in pairs and clusters 345464) POCT-GLUCOSE [id number] 00:15:00 Test Item Value Reference Range Interpretation Comments POC-GLUCOSE METER 193 mg/dL 70-110 H TESTED AT [place] [address] ([facility] (test code = [facility] 1538) [address] POCT-GLUCOSE [id number] 22:22:00 Test Item Value Reference Range Interpretation Comments POC-GLUCOSE METER 170 mg/dL 70-110 H TESTED AT [place] [address] ([facility] (test code = [facility] 1538) [address]644 POCT-GLUCOSE [id number] 20:17:00 Test Item Value Reference Range Interpretation Comments POC-GLUCOSE METER 179 mg/dL 70-110 H TESTED AT [place] [address] ([facility]) (test code = [facility] 1538) [address] BASIC METABOLIC [id number] 19:00:00 Test Item Value Reference Range Interpretation [...] NOT APPLICABLE FOR DIALYSIS PATIEN TS. POCT-GLUCOSE [id number] 18:27:00 Test Item Value Reference Range Interpretation Comments POC-GLUCOSE METER 150 mg/dL 70-110 H TESTED AT [place] [address] ([facility] (test code = [facility] 1538) [address]188 POCT-GLUCOSE [id number] 15:58:00 Test Item Value Reference Range Interpretation Comments POC-GLUCOSE METER 219 mg/dL 70-110 H TESTED AT [place] [address] ([facility]) (test code = HAL [place] [facility] 1538) [address] POCT-GLUCOSE [id number] 14:26:00 Test Item Value Reference Range Interpretation Comments POC-GLUCOSE METER 212 mg/dL 70-110 H TESTED AT [place] [address] ([facility]) (test code = HAL Mai [facility] 1538) [address] POCT-GLUCOSE [id number] 12:23:00 Test Item Value Reference Range Interpretation Comments POC-GLUCOSE METER 261 mg/dL 70-110 H TESTED AT [place] [address] ([facility]) (test code = HAL [place] [facility] 1538) [address] POCT-GLUCOSE [id number] 10:19:00 Test Item Value Reference Range Interpretation Comments POC-GLUCOSE METER 323 mg/dL 70-110 H TESTED AT [place] [address] ([facility]) (test code = HAL [place] [facility] 1538) [address] POCT-GLUCOSE [id number] 08:24:00 Test Item Value Reference Range Interpretation Comments POC-GLUCOSE METER 235 mg/dL 70-110 H TESTED AT [place] [address] ([facility]) (test code = HAL Mai [facility] 1538) [address]007 POCT-GLUCOSE [id number] 07:10:00 Test Item Value Reference Range Interpretation Comments POC-GLUCOSE METER 244 mg/dL 70-110 H TESTED AT [place] [address] ([facility]) (test code = HAL [place] [facility] 1538) [address]64 POCT-GLUCOSE [id number] 06:15:00 Test Item Value Reference Range Interpretation Comments POC-GLUCOSE METER 249 mg/dL 70-110 H TESTED AT [place] [address] ([facility]) (test code = HAL Mai [facility] 1538) [address] CBC W/PLT COUNT & AUTO [id number] 06:05:00 Test Item Value Reference Range Interpretation Comments WHITE BLOOD CELL COUNT ([facility]) 11.1 K/ L 4.0-10.0 H (test code = 775) RED BLOOD CELL COUNT ([facility]) 3.12 M/ L 4.20-5.80 L (test [...] 0.00-0.20 (test code = 417) 0.00BASIC METABOLIC [id number] 05:11:00 Test Item Value Reference Range Interpretation [...] S NOT APPLICABLE FOR DIALYSIS PATIEN TS. [id number] 05:05:00 Test Item Value Reference Range Interpretation Comments MAGNESIUM (BEAKER) 2.3 mg/dL 1.6-2.6 Specimen slightly (test code = 627) hemolyzed [id number] 05:05:00 Test Item Value Reference Range Interpretation Comments PHOSPHORUS (BEAKER) 5.9 mg/dL 2.3-4.7 H Specimen slightly (test code = 604) hemolyzed POCT-GLUCOSE [id number] 04:02:00 Test Item Value Reference Range Interpretation Comments POC-GLUCOSE METER 187 mg/dL 70-[address] [facility] 6720 (BEAKER) (test code = [place] 1538) [address] POCT-GLUCOSE [id number] 02:22:00 Test Item Value Reference Range Interpretation Comments POC-GLUCOSE METER 163 mg/dL 70-[address] [facility] 6720 (BEAKER) (test code = [place] 1538) [address] POCT-GLUCOSE [id number] 00:54:00 Test Item Value Reference Range Interpretation Comments POC-GLUCOSE METER 239 mg/dL 70-[address] [facility] 6720 (BEAKER) (test code = [place] 1538) [address] POCT-GLUCOSE [id number] 00:11:00 Test Item Value Reference Range Interpretation Comments POC-GLUCOSE METER 29 mg/dL 70-110 LL TESTED AT [place] [address] ([facility] (test code = [place] [address] 1538) POCT-GLUCOSE [id number] 21:35:00 Test Item Value Reference Range Interpretation Comments POC-GLUCOSE METER 100 mg/dL 70-110 TESTED AT [place] [address] ([facility] (test code = MAIDAOK P[place] 1538) [address] POCT-GLUCOSE [id number] 20:24:00 Test Item Value Reference Range Interpretation Comments POC-GLUCOSE METER 57 mg/dL 70-110 L TESTED AT [place] [address] (BEAKER) (test code = [facility] [address] 1538) BASIC METABOLIC [id number] 18:11:00 Test Item Value Reference Range Interpretation [...] NOT APPLICABLE FOR DIALYSIS PATIEN TS. POCT-GLUCOSE [id number] 17:33:00 Test Item Value Reference Range Interpretation Comments POC-GLUCOSE METER 87 mg/dL 70-[address] [facility] 6720 (BEAKER) (test code = [place] [address] 1538) POCT-GLUCOSE [id number] 17:33:00 Test Item Value Reference Range Interpretation Comments POC-GLUCOSE METER 54 mg/dL 70-110 L Notified R Manny DALTON/TESTED AT (BEAKER) (test code = [place] [address] [place] 1538) [facility] 7703 0 POCT-GLUCOSE [id number] 14:05:00 Test Item Value Reference Range Interpretation Comments POC-GLUCOSE METER 159 mg/dL 70-110 H TESTED AT [place] [address] (BEAKER) (test code = HAL Mai [facility] 1538) [address]608 POCT-GLUCOSE [id number] 12:26:00 Test Item Value Reference Range Interpretation Comments POC-GLUCOSE METER 247 mg/dL 70-110 H TESTED AT [place] [address] (BEAKER) (test code = HAL Mai [facility] 1538) [address] BASIC METABOLIC [id number] 11:20:00 Test Item Value Reference Range Interpretation [...] S NOT APPLICABLE FOR DIALYSIS PATIEN TS. [id number] 11:14:00 Test Item Value Reference Range Interpretation Comments MAGNESIUM (BEAKER) (test code = 2.2 mg/dL 1.6-2.6 627) CBC W/PLT COUNT & AUTO [id number] 11:14:00 Test Item Value Reference Range Interpretation [...] L 0.00-0.20 (test code = 417) 0.00POCT-GLUCOSE [id number] 10:17:00 Test Item Value Reference Range Interpretation Comments POC-GLUCOSE METER 172 mg/dL 70-110 H TESTED AT [facility] 6720 (BEAKER) (test code = [facility] 1538) [address] POCT-GLUCOSE [id number] 10:17:00 Test Item Value Reference Range Interpretation Comments POC-GLUCOSE METER 167 mg/dL 70-110 H TESTED AT [place] [address] ([facility]) (test code = [facility] 1538) [address] POCT-GLUCOSE [id number] 10:17:00 Test Item Value Reference Range Interpretation Comments POC-GLUCOSE METER 176 mg/dL 70-110 H TESTED AT [place] [address] ([facility]) (test code = [facility] 1538) [id number] 08:17:00 Test Item Value Reference Range Interpretation Comments [facility] ([facility]) (test code = 361) 347 ng/mL [...] L (test code = 2590) VANCOMYCIN LEVEL, [id number] 06:52:00 Test Item Value Reference Range Interpretation Comments VANCOMYCIN RANDOM (BEAKER) (test 12.8 ug/mL code = 523) Reference Range: No NormalsHold further dosing for vancomycin level > 20, alert MD and RphPOCT-GLUCOSE [id number] 06:16:00 Test Item Value Reference Range Interpretation Comments POC-GLUCOSE METER 179 mg/dL 70-110 H TESTED AT [place] [address] ([facility]) (test code = [facility] 1538) [address] POCT-GLUCOSE [id number] 05:08:00 Test Item Value Reference Range Interpretation Comments POC-GLUCOSE METER 185 mg/dL 70-[address] [facility] 6720 (BEAKER) (test code = [place] 1538) [address] PTH, [id number] 05:01:00 Test Item Value Reference Range Interpretation Comments PARATHYROID HORMONE INTACT 114.5 pg/mL 8.5-72.5 H (BEAKER) (test code = 577) Effective 08/05/2014: Reference Range ChangeNew: 8.5-72.5 Previous: 15.0-90.0 BASIC METABOLIC [id number] 04:53:00 Test Item Value Reference Range Interpretation [...] S NOT APPLICABLE FOR DIALYSIS PATIEN TS. [id number] 04:52:00 Test Item Value Reference Range Interpretation Comments PHOSPHORUS (BEAKER) (test code = 3.4 mg/dL 2.3-4.7 604) POCT-GLUCOSE [id number] 04:18:00 Test Item Value Reference Range Interpretation Comments POC-GLUCOSE METER 134 mg/dL 70-[address] [facility] 6720 (BEAKER) (test code = [place] 1538) [id number] POCT-GLUCOSE [id number] 03:10:00 Test Item Value Reference Range Interpretation Comments POC-GLUCOSE METER 161 mg/dL 70-110 H TESTED AT [place] [address] [facility] (test code = [facility] [place] 1538) [address] POCT-GLUCOSE [id number] 02:13:00 Test Item Value Reference Range Interpretation Comments POC-GLUCOSE METER 173 mg/dL 70-110 H TESTED AT [place] [address] (BEAKER) (test code = [facility] [place] 1538) [address] BASIC METABOLIC [id number] 01:40:00 Test Item Value Reference Range Interpretation [...] NOT APPLICABLE FOR DIALYSIS PATIEN TS. POCT-GLUCOSE [id number] 01:10:00 Test Item Value Reference Range Interpretation Comments POC-GLUCOSE METER 114 mg/dL 70-110 H TESTED AT [place] [address] ([facility] (test code = [facility] [place] [facility] 1538) [id number] POCT-GLUCOSE [id number] 00:44:00 Test Item Value Reference Range Interpretation Comments POC-GLUCOSE METER 152 mg/dL 70-110 H TESTED AT [place] [address] (BEAKER) (test code = [facility] 1538) [address] POCT-GLUCOSE [id number] 23:07:00 Test Item Value Reference Range Interpretation Comments POC-GLUCOSE METER 162 mg/dL 70-110 H TESTED AT [place] [address] [facility] (test code = [facility] 1538) [address] POCT-GLUCOSE [id number] 22:12:00 Test Item Value Reference Range Interpretation Comments POC-GLUCOSE METER 115 mg/dL 70-110 H TESTED AT [place] [address] [facility] (test code = [facility] 1538) [address] POCT-GLUCOSE [id number] 21:20:00 Test Item Value Reference Range Interpretation Comments POC-GLUCOSE METER 88 mg/dL 70-110 TESTED AT [place] [address] ([facility] (test code = [facility] [address]38) POCT-GLUCOSE [id number] 20:10:00 Test Item Value Reference Range Interpretation Comments POC-GLUCOSE METER 109 mg/dL 70-110 TESTED AT [place] [address] (BEAKER) (test code = [facility] 1538) [address] HEPATITIS B SURFACE [id number] 19:53:00 Test Item Value Reference Range Interpretation Comments HEPATITIS B SURFACE ANTIGEN (2) Nonreactive Nonreactive (BEAKER) (test code = 2585) BASIC METABOLIC [id number] 19:35:00 Test Item Value Reference Range Interpretation [...] NOT APPLICABLE FOR DIALYSIS PATIEN TS. POCT-GLUCOSE [id number] 19:14:00 Test Item Value Reference Range Interpretation Comments POC-GLUCOSE METER 179 mg/dL 70-[address] [facility] 6720 (BEAKER) (test code = [place] 1538) [address] POCT-GLUCOSE [id number] 17:57:00 Test Item Value Reference Range Interpretation Comments POC-GLUCOSE METER 173 mg/dL 70-[address] [facility] 6720 (BEAKER) (test code = [facility] [place] 15[address]) [address] BASIC METABOLIC [id number] 16:42:00 Test Item Value Reference Range Interpretation [...] NOT APPLICABLE FOR DIALYSIS PATIEN TS. POCT-GLUCOSE [id number] 15:59:00 Test Item Value Reference Range Interpretation Comments POC-GLUCOSE METER 289 mg/dL 70-[address] [facility] 6720 (BEAKER) (test code = [facility] [place] 1538) [address] POCT-GLUCOSE [id number] 15:23:00 Test Item Value Reference Range Interpretation Comments POC-GLUCOSE METER 296 mg/dL 70-[address] [facility] 6720 (BEAKER) (test code = [facility] [place] 1538) [address] POCT-GLUCOSE [id number] 15:23:00 Test Item Value Reference Range Interpretation Comments POC-GLUCOSE METER 342 mg/dL 70-110 H TESTED AT [facility] 6720 (BEAKER) (test code = [facility] [place] 1538) [address] BASIC METABOLIC [id number] 12:33:00 Test Item Value Reference Range Interpretation [...] NOT APPLICABLE FOR DIALYSIS PATIEN TS. POCT-GLUCOSE [id number] 12:23:00 Test Item Value Reference Range Interpretation Comments POC-GLUCOSE METER 231 mg/dL 70-110 H TESTED AT [place] [address] [facility] (test code = [facility] 1538) [address] HEMOGLOBIN [id number] 11:38:00 Test Item Value Reference Range Interpretation Comments HEMOGLOBIN A1C (BEAKER) (test code = 9.9 % 4.3-6.1 H 368) POCT-GLUCOSE [id number] 11:09:00 Test Item Value Reference Range Interpretation Comments POC-GLUCOSE METER 212 mg/dL 70-110 H TESTED AT [place] [address] ([facility]) (test code = [facility] 1538) [address] BASIC METABOLIC [id number] 10:52:00 Test Item Value Reference Range Interpretation [...] S NOT APPLICABLE FOR DIALYSIS PATIEN TS. [id number] 10:31:00 Test Item Value Reference Range Interpretation Comments MAGNESIUM (BEAKER) (test code = 2.4 mg/dL 1.6-2.6 627) POCT-GLUCOSE [id number] 10:17:00 Test Item Value Reference Range Interpretation Comments POC-GLUCOSE METER 202 mg/dL 70-[address] [facility] 6720 (BEAKER) (test code = [place] 15[address]) [address] TROPONIN [id number] 10:16:00 Test Item Value Reference Range Interpretation [...] acute neurological disease, and persistent tachyarrhythmia.BLOOD GAS, [id number] 09:27:00 Test Item Value Reference Range Interpretation [...] (test code = 1819) 21.0 % POCT-GLUCOSE [id number] 09:19:00 Test Item Value Reference Range Interpretation Comments POC-GLUCOSE METER 179 mg/dL 70-110 H TESTED AT [place] [address] ([facility]) (test code = [place] 1538) [address] LACTIC ACID, VENOUS, WHOLE [id number] 09:13:00 Test Item Value Reference Range Interpretation Comments LACTATE BLOOD VENOUS (2) (BEAKER) 1.5 mmol/L 0.5-2.2 (test code = 2872) Effective 01/20/2016: Units/Reference Range ChangeNew: 0.5-2.2 mmol/L Previous: 5-20 mg/dLKETONE, [id number] 08:51:00 Test Item Value Reference Range Interpretation Comments KETONES, BLOOD (BEAKER) (test code 0.0 mmol/L <0.4 = 1103) POCT-GLUCOSE [id number] 08:08:00 Test Item Value Reference Range Interpretation Comments POC-GLUCOSE METER 211 mg/dL 70-110 H TESTED AT [place] [address] ([facility]) (test code = [place] 1538) [address] POCT-GLUCOSE [id number] 07:30:00 Test Item Value Reference Range Interpretation Comments POC-GLUCOSE METER 230 mg/dL 70-110 H TESTED AT [place] [address] ([facility]) (test code = [place] 1538) [address] POCT-GLUCOSE [id number] 06:05:00 Test Item Value Reference Range Interpretation Comments POC-GLUCOSE METER 349 mg/dL 70-110 H Notified R Manny DALTON/TESTED (BEAKER) (test code = AT [facility] 6720 [facility] 1538) [facility] [address] [id number] 05:46:00 Test Item Value Reference Range Interpretation Comments GLUCOSE RANDOM (BEAKER) (test code 472 mg/dL 70-105 HH = 652) Effective 08/05/2014: Reference Range Change-Adult onlyNew: 70-105 Previous: 70-110If last glucose was less than 500, may do bedside glucose instead of serum glucose.[id number] 05:31:00 Test Item Value Reference Range Interpretation Comments POTASSIUM (BEAKER) (test code = 4.8 meq/L 3.5-5.1 379) If last glucose was less than 500, may do bedside glucose instead of serum glucose.KETONE, [id number] 05:16:00 Test Item Value Reference Range Interpretation Comments KETONES, BLOOD (BEAKER) (test code 0.0 mmol/L <0.4 = 1103) POCT-GLUCOSE [id number] 05:00:00 Test Item Value Reference Range Interpretation Comments POC-GLUCOSE METER 456 mg/dL 70-110 HH TESTED AT [place] [address] (BEAKER) (test code = BERTNE R [facility] 1538) [address] POCT-GLUCOSE [id number] 04:08:00 Test Item Value Reference Range Interpretation Comments POC-GLUCOSE METER > mg/dL 70-110 HH OUTSIDE ME ASURING (BEAKER) (test code RANGETES CASANDRA AT [place] [address] = 1538) [facility] [address] [id number] 03:41:00 Test Item Value Reference Range Interpretation Comments GLUCOSE RANDOM (BEAKER) (test code 705 mg/dL 70-105 HH = 652) Effective 08/05/2014: Reference Range Change-Adult onlyNew: 70-105 Previous: 70-110If last glucose was less than 500, may do bedside glucose instead of serum glucose.URINALYSIS W/ REFLEX URINE [id number] 03:02:00 Test Item Value Reference Range Interpretation [...] code = 1584) SOURCE(BEAKER) (test code = 0975) [id number] 02:51:00 Test Item Value Reference Range Interpretation Comments GLUCOSE RANDOM (BEAKER) (test code 684 mg/dL 70-105 HH = 652) Effective 08/05/2014: Reference Range Change-Adult onlyNew: 70-105 Previous: 70-110If last glucose was less than 500, may do bedside glucose instead of serum glucose.COMPREHENSIVE METABOLIC [id number] 02:51:00 Test Item Value Reference Range Interpretation [...] may do bedside glucose instead of serum glucose.[id number] 02:50:00 Test Item Value Reference Range Interpretation Comments THYROID STIMULATING HORMONE 2.15 uIU/mL 0.35-4.94 (BEAKER) (test code = 772) [id number] 02:45:00 Test Item Value Reference Range Interpretation Comments MAGNESIUM (BEAKER) (test code = 2.0 mg/dL 1.6-2.6 627) [id number] 02:45:00 Test Item Value Reference Range Interpretation Comments PHOSPHORUS (BEAKER) (test code = 4.4 mg/dL 2.3-4.7 604) CREATINE KINASE (CK), TOTAL AND [id number] 02:41:00 Test Item Value Reference Range Interpretation Comments CREATINE KINASE TOTAL (BEAKER) 140 U/L 29-200 (test code = 380) CREATINE KINASE-MB (BEAKER) (test 7.2 ng/mL 0.0-6.6 H code = 750) CREATINE KINASE-MB INDEX (BEAKER) 5.1 % (test code = 395) Effective 08/05/2014: CK-MB Reference Range ChangeNew: 0.0-6.6 Previous: 0.0-4.9CK-MB Reference Range:<6.7 Normal6.7-10.0 Borderline>10.0 AbnormalTROPONIN [id number] 02:36:00 Test Item Value Reference Range Interpretation [...] renalfailure, acidosis, acute neurological disease, and persistent tachyarrhythmia.[id number] 02:31:00 Test Item Value Reference Range Interpretation Comments POTASSIUM (BEAKER) (test code = 4.8 meq/L 3.5-5.1 379) If last glucose was less than 500, may do bedside glucose instead of serum glucose.CBC W/PLT COUNT & AUTO [id number] 02:31:00 Test Item Value Reference Range Interpretation [...] 0.00-0.20 (test code = 417) 0.000.640.000.580.000.000.000.00BLOOD GAS, [id number] 02:26:00 Test Item Value Reference Range Interpretation [...] 1819) 30.0 % LACTIC ACID, ARTERIAL, WHOLE [id number] 02:25:00 Test Item Value Reference Range Interpretation Comments LACTATE BLOOD ARTERIAL (2) 4.9 mmol/L 0.5-2.2 H (ANTONIO) (test code = 2874) Effective 01/20/2016: Units/Reference Range ChangeNew: 0.5-2.2 mmol/L Previous: 5-20 mg/dLPOCT-GLUCOSE [id number] 02:18:00 Test Item Value Reference Range Interpretation Comments POC-GLUCOSE METER 493 mg/dL 70-[address] [facility] 6720 (ANTONIO) (test code = [place] 1538) [address] [id number] 02:17:00 Test Item Value Reference Range Interpretation Comments PARTIAL THROMBOPLASTIN TIME 25.3 seconds 22.5-36.0 (ANTONIO) (test code = 760) PROTHROMBIN TIME/[id number] 02:16:00 Test Item Value Reference Range Interpretation Comments PROTIME (ANTONIO) (test code = 13.2 seconds 11.7-14.7 759) INR ([facility]) (test code = 370) 1.0 <=5.9 RECOMMENDED COUMADIN/WARFARIN INR THERAPY RANGESSTANDARD DOSE: 2.0 - 3.0 Includes: PROPHYLAXIS forvenous thrombosis, systemic embolization; TREATMENT for venous thrombosis and/or pulmonary embolus.HIGH RISK: Target INR is 2.5-3.5 for patients with mechanical heart valves.
--- NOTE | 2021-04-17 17:29 | EDPHYS ---
Physician Documentation [facility] Name: Orlando Culp Age: 45 yrs Sex: Male : 1975 Arrival Date: 04/17/2021 Time: 14:49 Bed 27 Private MD: Sherman Acosta ED Physician Jarett Leon HPI: 04/17 16:25 This 45 yrs old Male presents to ER via Ambulatory with complaints of Abscess. jmm 16:25 the patient presents with a swollen area of the buttocks. Onset: The symptoms/episode jmm began/occurred gradually. Possible cause(s): unknown. Associated signs and symptoms: Pertinent negatives: discharge, drainage, erythema. This is a 45-year-old male with a history of diabetes mellitus, end-stage renal disease, GERD, hypertension the presents to the emergency department with complaints of swelling and possible abscess to his buttock. Denies fever, chills.. Historical: - Allergies: 15:41 PENICILLINS; iw 15:41 Phenergan; iw - PMHx: 15:41 Diabetes - IDDM; ESRD; GERD; Hypertension; iw - Immunization history:: Client reports receiving the 2nd dose of the Covid vaccine. - Social history:: Smoking status: Patient denies any tobacco usage or history of. ROS: 16:25 Constitutional: Negative for fever, chills, and weight loss, Cardiovascular: Negative jmm for chest pain, palpitations, and edema, Respiratory: Negative for shortness of breath, cough, wheezing, and pleuritic chest pain, Abdomen/GI: Negative for abdominal pain, nausea, vomiting, diarrhea, and constipation. 16:25 Skin: Positive for swelling. 16:25 All other systems are negative. Exam: 16:25 Constitutional: This is a well developed, well nourished patient who is awake, alert, jmm and in no acute distress. Head/Face: atraumatic. Eyes: EOMI, no conjunctival erythema appreciated ENT: Moist Mucus Membranes Neck: Trachea midline, Supple Chest/axilla: Normal chest wall appearance and motion. Cardiovascular: Regular rate and rhythm. No edema appreciated Respiratory: Normal respirations, no respiratory distress appreciated Abdomen/GI: Non distended, soft Back: Normal ROM 16:25 Skin: 2 small pustular lesions noted to the right buttock, nonfluctuant, no surrounding erythema, nontender to palpation. 16:25 Neuro: Orientation: is normal, Mentation: is normal, Memory: is normal, Motor: is normal. Vital Signs: 15:39 BP 137 / 87; Pulse 72; Resp 16; Temp 98.5; Pulse Ox 100% on R/A; Weight 57 kg; iw MDM: 16:25 Patient medically screened. [facility] 17:27 Data reviewed: vital signs, nurses notes. Counseling: I had a detailed discussion with [facility] the patient and/or guardian regarding: the historical points, exam findings, and any diagnostic results supporting the discharge/admit diagnosis, the need for outpatient follow up, to return to the emergency department if symptoms worsen or persist or if there are any questions or concerns that arise at home. ED course: Patient is alert and nontoxic in appearance in the ED. Lesions are not fluctuant, I do not suspect any cellulitis. Patient will be prescribed some oral antibiotics along with sits baths to help with the lesions. Patient is otherwise advised to follow with general surgery order to follow with his primary care provider. Patient is otherwise given strict return precautions. Patient understood and agrees with plan of care.. Administered Medications: No medications were administered Disposition: 17:59 Co-signature as Attending Physician, Jarett Leon MD. rn Disposition Summary: 04/17/21 17:29 Discharge Ordered Location: Home [facility] Condition: Stable [facility] Diagnosis - Cutaneous abscess of the buttock [facility] Followup: [facility] - With: Sherman Acosta DO - When: 2 - 3 days - Reason: Recheck today's complaints, Continuance of care, Re-evaluation by your physician Discharge Instructions: - Discharge Summary Sheet [facility] - Skin Abscess [facility] - How to Take a Sitz Bath [facility] Forms: - Medication Reconciliation Form [facility] - Thank You Letter [facility] - Antibiotic Education [facility] - Prescription Opioid Use [facility] Prescriptions: - Clindamycin HCl 300 mg Oral Capsule - take 1 capsule by ORAL route every 6 hours for 10 days; 40 capsule; Refills: 0, [facility] Product Selection Permitted Signatures: Randall Munoz PA PA jmm Williams, Irene, KAELA RN iw Jarett Leon MD MD rn
--- NOTE | 2021-04-17 17:29 | ER ---
Nurse's Notes [facility] Name: Orlando Culp Age: 45 yrs Sex: Male : 1975 Arrival Date: 04/17/2021 Time: 14:49 Bed 27 Private MD: Sherman Acosta Diagnosis: Cutaneous abscess of the buttock Presentation: 04/17 15:39 Chief complaint: Patient states: has a small abscess to right buttock, also has what iw appears to be a pressure ulcer to sacral area that is giving him a lot of pain. Coronavirus screen: At this time, the client does not indicate any symptoms associated with coronavirus-19. Ebola Screen: Patient negative for fever greater than or equal to 101.5 degrees Fahrenheit, and additional compatible Ebola Virus Disease symptoms Patient denies exposure to infectious person. Initial Sepsis Screen: Does the patient meet any 2 criteria? No. Patient's initial sepsis screen is negative. Does the patient have a suspected source of infection? No. Patient's initial sepsis screen is negative. Risk Assessment: Do you want to hurt yourself or someone else? Patient reports no desire to harm self or others. Onset of symptoms was April 15, 2021. 15:39 Method Of Arrival: Ambulatory iw 15:39 Acuity: DEMARIO 3 iw Historical: - Allergies: 15:41 PENICILLINS; iw 15:41 Phenergan; iw - PMHx: 15:41 Diabetes - IDDM; ESRD; GERD; Hypertension; iw - Immunization history:: Client reports receiving the 2nd dose of the Covid vaccine. - Social history:: Smoking status: Patient denies any tobacco usage or history of. Screenin:40 Abuse screen: Denies threats or abuse. Nutritional screening: No deficits noted. ll1 Tuberculosis screening: No symptoms or risk factors identified. Fall Risk Secondary diagnosis (15 points) impaired mobility, Ambulatory Aid- Crutches/Cane/Walker (15 pts). Gait- Impaired (20 pts.). Total Hendricks Fall Scale indicates High Risk Score (45 or more points). Fall prevention measures have been instituted. Side Rails Up X 2 Placed Close to Nursing Station Frequent Obs/Assessments Occuring As available patient and family educated on Fall Prevention Program and Strategies. Assessment: 16:30 General: Appears in no apparent distress. Behavior is calm, cooperative, appropriate ll1 for age. Pain: Complains of pain in buttocks Quality of pain is described as aching, Aggravated by increased activity. Derm: Abscess located on R buttocks is 2 small pimples noted R buttocks. No drainage at this time. Reports pain. Musculoskeletal: Circulation, motion, and sensation intact. Capillary refill < 3 seconds, Range of motion: intact in all extremities. Vital Signs: 15:39 BP 137 / 87; Pulse 72; Resp 16; Temp 98.5; Pulse Ox 100% on R/A; Weight 57 kg; iw ED Course: 14:49 Patient arrived in ED. mr 14:49 Sherman Acosta DO is Private Physician. mr 15:41 Triage completed. iw 15:41 Arm band placed on. 16:18 Randall Munoz PA is PHCP. [facility] 16:18 Jarett Leon MD is Attending Physician. [facility] 16:26 Jasper Sommer RN is Primary Nurse. ll1 16:26 Patient placed in an exam room, on a stretcher. ll1 16:30 Patient has correct armband on for positive identification. Bed in low position. Call ll1 light in reach. Side rails up X 1. Cardiac monitoring not applicable on this patient. 17:28 Sherman Acosta DO is Referral Physician. [facility] 17:40 No provider procedures requiring assistance completed. Patient did not have IV access ll1 during this emergency room visit. Administered Medications: No medications were administered Outcome: 17:29 Discharge ordered by . [facility] 17:40 Discharged to home ambulatory. 1 17:40 Condition: stable 17:40 Discharge instructions given to patient, Instructed on discharge instructions, follow up and referral plans. medication usage, Demonstrated understanding of instructions, follow-up care, medications, Prescriptions given X 1. 17:41 Patient left the ED. ll1 Signatures: Randall Munoz PA PA jmm Rivera, Mary mr Williams, Irene, KAELA RN Jasper Sommer RN RN ll1
[2021-04-17 17:45] VITALS: BP 137/87; TEMP 98.5; O2SAT 100
== END 2021-04-17 17:41 | disposition home or self-care (01) ==
LOC: ER 14:48
DX: L02.31 Cutaneous abscess of buttock (principal); E11.22 Type 2 diabetes mellitus with diabetic chronic kidney disease; I12.0 Hypertensive chronic kidney disease with stage 5 chronic kidney disease or end stage renal disease; N18.6 End stage renal disease; Z88.0 Allergy status to penicillin; Z88.8 Allergy status to other drugs, medicaments and biological substances
CPT/HCPCS: 99282

== ENCOUNTER 2021-04-22 06:49 | Inpatient (IN) | payer BC ==
--- OUTSIDE RECORDS SUMMARY | 2021-04-22 07:03 | XMS REPORT | Continuity of Care Document ---
:1975 Author Organization [facility] t Address [address] [place] [address] Care Team Providers Name Role Phone Sharpless Primary Care Physician Unavailable Doctor Unassigned, [place] Attending Clinician Unavailable Guero Torres MD Attending Clinician Scot DALTON Attending Clinician Singer RICHARD Attending Clinician Rolando DALTON Attending Clinician Denis DALTON Attending Clinician Keith DALTON Attending Clinician Paulo Martin DO Attending Clinician Tasneem MORENO Attending Clinician Amandeep Jara MD Attending Clinician [phone] LUCR[place] RENEE Attending Clinician Unavailable Scot DALTON Admitting Clinician Rolando DALTON Admitting Clinician Keith DALTON Admitting Clinician Tasneem MORENO Admitting Clinician Amandeep Jara MD Admitting Clinician [phone] LUCRECIA RENEE Admitting Clinician Unavailable Problems Condition [...] kes - on on 00:00: Medical 00 Center DKA DKA Disease Active [facility] (diabetic [...] Allergy 3-17 [facility] [place] Social History Social Habit Start Date Stop Date Quantity Comments Source Sex Assigned At [facility] Smoking Status Start Date Stop Date Source [facility] Ordered Filled Start Stop Current Ordering Indication Dosage Frequency Signature Comments Components Source Medication Medication Date Date Medication? Clinician (SIG) Name Name amLODIPine Yes 10mg QD Take [address] (NORVASC) 3-23 by mouth [facility] - 10 MG 19:11: daily. Medical tablet [address] [place] [address] aspirin 81 Yes 81mg QD Take [address] MG chewable 3-23 by mouth [facility] - tablet 19:11: daily. [address] calcium Yes 1{tbl} Q.[id number] Take [address] [facility] [address] carbonate 3-23 [id number] tablet by [facility] - (TUMS) 500 19:11: [...] / Time Performed Performing Clinician Valeriano butterfield [id number] 2021-01-23 00:00:00 ENCPL 9R3H69O 2021-01-23 00:00:00 ENCPL 4C8C58F 2021-01-23 00:00:00 ENCPL 4A4X32Y 2021-01-23 00:00:00 ENCPL 3D2E63P 2021-01-23 00:00:00 ENCPL 6H7J06R 2021-01-23 00:00:00 ENCPL 5S1O35W 2021-01-23 00:00:00 ENCPL 7L9T07J 2021-01-23 00:00:00 ENCPL 7G4Q69M 2021-01-23 00:00:00 ENCPL 5U3X82K 2021-01-23 00:00:00 ENCPL 6P8O05W 2021-01-23 00:00:00 ENCPL 5H8C07C 2021-01-23 00:00:00 ENCPL 6T9Z99A 2021-01-23 00:00:00 ENCPL 2O9U71D 2021-01-23 00:00:00 ENCPL 2G3O99O 2021-01-23 00:00:00 ENCPL 9N4K05M 2021-01-23 00:00:00 ENCPL 4R3H10W 2021-01-23 00:00:00 ENCPL 9S4P76F 2021-01-23 00:00:00 ENCPL 8F9T60S 2021-01-23 00:00:00 ENCPL 1J7U36P 2021-01-23 00:00:00 ENCPL 7D6D86P 2021-01-23 00:00:00 ENCPL Encounters Start End Encounter Admission Attending Care Care Encounter Source Date/Time Date/Time Type Type Clinicians Facility Department ID 2020-10-08 2020-10-08 Orders Doctor ALVAREZ 1.2.840.114 [id number] 00:00:00 00:00:00 Only [facility] [id number] 2019-10-02 2019-10-02 Orders Doctor ALVAREZ 1.2.840.114 [id number] 00:00:00 00:00:00 Only [facility]igned[facility]13.10 [facility]2.686 [id number] 2019-06-05 2019-06-06 Emergency Mariajose Torresval Jack [facility] 1.2.840 .114 [id number] 07:59:43 14:59:00 Mak Ellison 350.1.13.10 [place] 4.2.7.2.686 [place] [address] [id number] 2019-06-01 2019-06-01 Emergency Luca Jackson [facility] 1.2.840. 114 [id number] 06:56:22 17:52:00 Jesus Marshall [id number] [place] 4.2.7.2.686 [place] [address] [id number] [facility] 2019-05-28 2019-05-28 Emergency DenisAndrey [facility] 1.2.840. 114 [id number] 07:49:46 20:40:00 Jesus Marshall [id number] [place] 4.2.7.2.686 [place] [address] [id number] [facility] 2019-05-24 2019-05-24 Emergency Denis Andrey [facility] 1.2.840. 114 [id number] 07:36:09 16:15:00 James Parker 350.1.13.10 [place] 4.2.7.2.686 [place] [address] [id number] [facility] 2019-05-20 2019-05-20 Emergency Flower Martin [facility] 1.2.8 40.114 [id number] 07:34:17 19:50:00 James Parker 350.1.13.10 [place] 4.2.7.2.6 [place] [address] [id number] [facility] 2019-05-15 2019-05-15 Emergency Luca Jackson [facility] 1.2.840. 114 [id number] 07:17:11 18:48:00 Jesus Marshall 350.1.13.10 [place] 4.2.7.2.686 [place] [address] [id number] 2019-05-09 2019-05-11 Emergency Nancy Torres [facility] 1.2.840 .114 [id number] 07:23:22 15:03:00 Jesus Marshall 350.1.13.10 [place] 4.2.7.2.686 [place] [address] [id number] 2019-05-07 2019-05-07 Emergency Denis [facility] 1.2.685.118 [id number] 06:36:08 08:19:00 Andrey Castrejon 350.1.13.10 [place] 4.2.7.2.686 [place] [address] [id number] 2019-05-03 2019-05-03 Emergency Andrey Barrios [facility] 1.2.840. 114 [id number] 07:04:51 19:40:00 Tasneem Caleb [place] 350.1.13.10 [place] 4.2.7.2.686 [place] [address] [id number] 2019-04-29 2019-04-29 Emergency Nancy Torres [facility] 1.2.840 .114 [id number] 06:03:54 16:18:00 EstefaniBebejackelyn Osagbaromegan [place] 350.1.13.10 [place] 4.2.7.2.686 [place] [address] [id number] 2019-04-24 2019-04-24 Emergency Flower Martin [facility] 1.2.8 40.114 [id number] 07:32:53 17:15:00 Mak Ellison 350.1.13.10 [place] 4.2.7.2.686 [place] [address] [id number] 2019-04-20 2019-04-20 Emergency Andrey Barrios [facility] 1.2.840. 114 [id number] 07:35:56 21:13:00 Mak Ellison 350.1.13.10 [place] 4.2.7.2.686 [place] [address] [id number] 081 2019-04-15 2019-04-15 Emergency Andrey Barrios [facility] 1.2.840. 114 [id number] 06:12:02 17:50:00 TasneemCaleb 350.1.13.10 [place] 4.2.7.2.686 [place] [address] [id number] 081 Results Test Description Test Time Test Comments Results Result Comments Source BLOOD CULTURE 2016-12-09 11:00:00 Test Item Value Reference Range Interpretation Comme nts CULTURE (BEAKER) (test code = 1095) No growth in 5 days BLOOD [id number] 11:00:00 Test Item Value Reference Range Interpretation Comments CULTURE (BEAKER) (test No growth in 5 days code = 1095) ISLET CELL AB [id number] 09:29:00 Test Item Value Reference Range Interpretation Comments ISLET CELL AB See individual AUTOVERIFICATION (test panel test results. code = 2556) POCT-GLUCOSE [id number] 17:52:00 Test Item Value Reference Range Interpretation Comments POC-GLUCOSE METER 360 mg/dL 70-110 H TESTED AT [facility] ([facility]) (test code = [facility] P[facility] 1538) [address] CLOSTRIDIUM DIFFICILE TOXIN [id number] 14:10:00 Test Item Value Reference Range Interpretation Comments CLOSTRIDIUM DIFFICILE TOXIN, PCR Not Detected Not Detected ([facility]) (test code = 1525) This qualitative [...] of a positive result is not recommended.POCT-GLUCOSE [id number] 13:02:00 Test Item Value Reference Range Interpretation Comments POC-GLUCOSE METER 265 mg/dL 70-110 H TESTED AT [facility] 6720 ([facility]) (test code = [facility] [place] 1538) [address] POCT-GLUCOSE [id number] 07:13:00 Test Item Value Reference Range Interpretation Comments POC-GLUCOSE METER 70 mg/dL 70-110 TESTED AT [facility] 67 ([facility]) (test code = [facility] [address] 1538) VANCOMYCIN LEVEL, [id number] 06:54:00 Test Item Value Reference Range Interpretation Comments VANCOMYCIN RANDOM ([facility]) (test 15.2 ug/mL code = 523) Reference Range: No NormalsBASIC METABOLIC [id number] 06:41:00 Test Item Value Reference Range Interpretation [...] NOT APPLICABLE FOR DIALYSIS PATIEN TS. POCT-GLUCOSE [id number] 06:40:00 Test Item Value Reference Range Interpretation Comments POC-GLUCOSE METER 44 mg/dL 70-110 L Notified R Manny DALTON/TESTED AT (BEAKER) (test code = [facility] [address] 1538) [place] [address] 0 POCT-GLUCOSE [id number] 06:36:00 Test Item Value Reference Range Interpretation Comments POC-GLUCOSE METER 54 mg/dL 70-110 L Notified R Manny DALTON/TESTED AT (BEAKER) (test code = [facility] [address] 1538) [place] [address] 0 BASIC METABOLIC [id number] 06:35:00 Test Item Value Reference Range Interpretation [...] NOT APPLICABLE FOR DIALYSIS PATIEN TS. POCT-GLUCOSE [id number] 21:14:00 Test Item Value Reference Range Interpretation Comments POC-GLUCOSE METER 396 mg/dL 70-110 H Notified R N MD/TESTED ([facility]) (test code = AT [place] [address]308) [facility] 770 0 POCT-GLUCOSE [id number] 18:02:00 Test Item Value Reference Range Interpretation Comments POC-GLUCOSE METER 363 mg/dL 70-110 H Notified R N MD/TESTED ([facility]) (test code = AT [place] [address]) [facility] 7703 0 BLOOD [id number] 18:00:00 Test Item Value Reference Range Interpretation Comments CULTURE (BEAKER) (test No growth in 5 days code = 1095) BLOOD [id number] 18:00:00 Test Item Value Reference Range Interpretation Comments CULTURE (BEAKER) (test No growth in 5 days code = 1095) POCT-GLUCOSE [id number] 13:08:00 Test Item Value Reference Range Interpretation Comments POC-GLUCOSE METER 188 mg/dL 70-110 H TESTED AT [facility] 6720 ([facility]) (test code = [place] [address]) [address] POCT-GLUCOSE [id number] 11:42:00 Test Item Value Reference Range Interpretation Comments POC-GLUCOSE METER 194 mg/dL 70-110 H TESTED AT [facility] 6720 ([facility]) (test code = [place] [address]) [address] VANCOMYCIN LEVEL, [id number] 09:58:00 Test Item Value Reference Range Interpretation Comments VANCOMYCIN RANDOM (BEAKER) (test 12.9 ug/mL code = 523) Reference Range: No NormalsTo be drawn BEFORE dialysis in the dialysis unit. Thank youPOCT-GLUCOSE [id number] 08:52:00 Test Item Value Reference Range Interpretation Comments POC-GLUCOSE METER 272 mg/dL 70-110 H TESTED AT [facility] 6720 ([facility] (test code = [place] 1538) [address] BASIC METABOLIC [id number] 05:09:00 Test Item Value Reference Range Interpretation [...] NOT APPLICABLE FOR DIALYSIS PATIEN TS. POCT-GLUCOSE [id number] 21:32:00 Test Item Value Reference Range Interpretation Comments POC-GLUCOSE METER 388 mg/dL 70-110 H TESTED AT [place] [id number] ([facility] (test code = [place] [facility] 1538) [address] POCT-GLUCOSE [id number] 18:31:00 Test Item Value Reference Range Interpretation Comments POC-GLUCOSE METER 247 mg/dL 70-110 H TESTED AT [place] [address] (BEAKER) (test code = HAL [place] [facility] 1538) [address] POCT-GLUCOSE [id number] 10:58:00 Test Item Value Reference Range Interpretation Comments POC-GLUCOSE METER 213 mg/dL 70-110 H TESTED AT [facility] 6720 (BEAKER) (test code = [place] [facility] 1538) [address] CBC W/PLT COUNT & AUTO [id number] 07:02:00 Test Item Value Reference Range Interpretation [...] 0.00-0.20 (test code = 417) 0.00BASIC METABOLIC [id number] 06:25:00 Test Item Value Reference Range Interpretation [...] S NOT APPLICABLE FOR DIALYSIS PATIEN TS. [id number] 06:24:00 Test Item Value Reference Range Interpretation Comments PHOSPHORUS (BEAKER) (test code = 3.8 mg/dL 2.3-4.7 604) [id number] 06:24:00 Test Item Value Reference Range Interpretation Comments MAGNESIUM (BEAKER) (test code = 2.2 mg/dL 1.6-2.6 627) POCT-GLUCOSE [id number] 21:55:00 Test Item Value Reference Range Interpretation Comments POC-GLUCOSE METER 270 mg/dL 70-110 H TESTED AT [place] [address] (BEAKER) (test code = [facility] 1538) [address] POCT-GLUCOSE [id number] 18:12:00 Test Item Value Reference Range Interpretation Comments POC-GLUCOSE METER 124 mg/dL 70-110 H TESTED AT [place] [address] ([facility] (test code = [facility] 1538) [address] POCT-GLUCOSE [id number] 16:27:00 Test Item Value Reference Range Interpretation Comments POC-GLUCOSE METER 135 mg/dL 70-110 H TESTED AT [place] [address] ([facility] (test code = [facility] 1538) [address] POCT-GLUCOSE [id number] 14:10:00 Test Item Value Reference Range Interpretation Comments POC-GLUCOSE METER 219 mg/dL 70-110 H TESTED AT [place] [address] ([facility] (test code = [facility] 1538) [address] POCT-GLUCOSE [id number] 12:01:00 Test Item Value Reference Range Interpretation Comments POC-GLUCOSE METER 162 mg/dL 70-110 H TESTED AT [place] [address] ([facility]) (test code = [facility] 1538) [address] POCT-GLUCOSE [id number] 09:51:00 Test Item Value Reference Range Interpretation Comments POC-GLUCOSE METER 220 mg/dL 70-110 H TESTED AT [place] [address] ([facility]) (test code = [facility] 1538) [address] POCT-GLUCOSE [id number] 07:48:00 Test Item Value Reference Range Interpretation Comments POC-GLUCOSE METER 151 mg/dL 70-110 H TESTED AT [place] [address] ([facility]) (test code = [facility] 1538) [address] BASIC METABOLIC [id number] 07:36:00 Test Item Value Reference Range Interpretation [...] NOT APPLICABLE FOR DIALYSIS PATIEN TS. POCT-GLUCOSE [id number] 07:06:00 Test Item Value Reference Range Interpretation Comments POC-GLUCOSE METER 98 mg/dL 70-110 TESTED AT [place] [address] ([facility]) (test code = [place] [facility] [address] 1538) POCT-GLUCOSE [id number] 06:27:00 Test Item Value Reference Range Interpretation Comments POC-GLUCOSE METER 63 mg/dL 70-110 L TESTED AT [place] [address] ([facility]) ([facility] = [facility] [address] 1538) VANCOMYCIN LEVEL, [id number] 04:31:00 Test Item Value Reference Range Interpretation Comments VANCOMYCIN RANDOM (BEAKER) (test 20.8 ug/mL code = 523) Reference Range: No [id number] 04:20:00 Test Item Value Reference Range Interpretation Comments PHOSPHORUS (BEAKER) (test code = 5.4 mg/dL 2.3-4.7 H 604) [id number] 04:20:00 Test Item Value Reference Range Interpretation Comments MAGNESIUM (BEAKER) (test code = 2.1 mg/dL 1.6-2.6 627) POCT-GLUCOSE [id number] 04:16:00 Test Item Value Reference Range Interpretation Comments POC-GLUCOSE METER 99 mg/dL 70-110 TESTED AT [place] [address] ([facility]) (test code = [place] [facility] [address] 1538) CBC W/PLT COUNT & AUTO [id number] 04:07:00 Test Item Value Reference Range Interpretation Comments WHITE BLOOD CELL COUNT (AKER) 7.4 K/ L 4.0-10.0 (test code = 775) RED BLOOD CELL COUNT (AKER) 3.07 M/ L 4.20-5.80 L (test code = 761) HEMOGLOBIN (BEAKER) (test code = 10.0 GM/DL 13.0-16.8 L 410) HEMATOCRIT (BEAKER) (test code = 29.0 % 40.0-50.0 L 411) MEAN CORPUSCULAR VOLUME (AKER) 94.7 fL 82.0-98.0 (test code = 753) [...] L 0.00-0.20 (test code = 417) 0.00POCT-GLUCOSE [id number] 02:10:00 Test Item Value Reference Range Interpretation Comments POC-GLUCOSE METER 132 mg/dL 70-110 H TESTED AT [facility] 6720 (BEAKER) (test code = [facility] 1538) [address] SPUTUM CULTURE + GRAM [id number] 00:32:00 Test Item Value Reference Range Interpretation Comments CULTURE (BEAKER) 4+ Normal respiratory (test code = 1095) jenelle present GRAM STAIN RESULT 3+ White blood cells (BEAKER) (test code = seen 1123) GRAM STAIN RESULT 0-5 epithelial cells (BEAKER) (test code = 62594) GRAM STAIN RESULT 2+ gram negative rods (BEAKER) (test code = 42517) GRAM STAIN RESULT 3+ gram positive rods (BEAKER) (test code = 764630) GRAM STAIN RESULT 2+ gram positive cocci (BEAKER) (test code = in pairs and clusters 300950) POCT-GLUCOSE [id number] 00:15:00 Test Item Value Reference Range Interpretation Comments POC-GLUCOSE METER 193 mg/dL 70-110 H TESTED AT [place] [address] (BEAKER) (test code = [place] 1538) [address] POCT-GLUCOSE [id number] 22:22:00 Test Item Value Reference Range Interpretation Comments POC-GLUCOSE METER 170 mg/dL 70-110 H TESTED AT [place] [address] ([facility] (test code = [facility] [place] 1538) [address] POCT-GLUCOSE [id number] 20:17:00 Test Item Value Reference Range Interpretation Comments POC-GLUCOSE METER 179 mg/dL 70-110 H TESTED AT [place] [address] ([facility] (test code = [facility] [place] 1538) [address] BASIC METABOLIC [id number] 19:00:00 Test Item Value Reference Range Interpretation [...] NOT APPLICABLE FOR DIALYSIS PATIEN TS. POCT-GLUCOSE [id number] 18:27:00 Test Item Value Reference Range Interpretation Comments POC-GLUCOSE METER 150 mg/dL 70-110 H TESTED AT [place] [address] ([facility] (test code = [place] [facility] 1538) [address] POCT-GLUCOSE [id number] 15:58:00 Test Item Value Reference Range Interpretation Comments POC-GLUCOSE METER 219 mg/dL 70-110 H TESTED AT [place] [address] ([facility]) (test code = [place] [facility] 1538) [address] POCT-GLUCOSE [id number] 14:26:00 Test Item Value Reference Range Interpretation Comments POC-GLUCOSE METER 212 mg/dL 70-110 H TESTED AT [place] [address] ([facility]) (test code = [place] [facility] 1538) [address] POCT-GLUCOSE [id number] 12:23:00 Test Item Value Reference Range Interpretation Comments POC-GLUCOSE METER 261 mg/dL 70-110 H TESTED AT [place] [address] ([facility]) (test code = [place] [facility] 1538) [address] POCT-GLUCOSE [id number] 10:19:00 Test Item Value Reference Range Interpretation Comments POC-GLUCOSE METER 323 mg/dL 70-110 H TESTED AT [place] [address] ([facility]) (test code = [facility] 1538) [address] POCT-GLUCOSE [id number] 08:24:00 Test Item Value Reference Range Interpretation Comments POC-GLUCOSE METER 235 mg/dL 70-110 H TESTED AT [place] [address] ([facility]) (test code = [place] [facility] 1538) [address] POCT-GLUCOSE [id number] 07:10:00 Test Item Value Reference Range Interpretation Comments POC-GLUCOSE METER 244 mg/dL 70-110 H TESTED AT [place] [address] ([facility]) (test code = [facility] 1538) [address] POCT-GLUCOSE [id number] 06:15:00 Test Item Value Reference Range Interpretation Comments POC-GLUCOSE METER 249 mg/dL 70-110 H TESTED AT [place] [address] ([facility]) (test code = [facility] 1538) [address] CBC W/PLT COUNT & AUTO [id number] 06:05:00 Test Item Value Reference Range Interpretation Comments WHITE BLOOD CELL COUNT ([facility]) 11.1 K/ L 4.0-10.0 H (test code = 775) RED BLOOD CELL COUNT ([facility]) 3.12 M/ L 4.20-5.80 L (test code [...] 0.00-0.20 (test code = 417) 0.00BASIC METABOLIC [id number] 05:11:00 Test Item Value Reference Range Interpretation [...] S NOT APPLICABLE FOR DIALYSIS PATIEN TS. [id number] 05:05:00 Test Item Value Reference Range Interpretation Comments MAGNESIUM (BEAKER) 2.3 mg/dL 1.6-2.6 Specimen slightly (test code = 627) hemolyzed [id number] 05:05:00 Test Item Value Reference Range Interpretation Comments PHOSPHORUS (BEAKER) 5.9 mg/dL 2.3-4.7 H Specimen slightly (test code = 604) hemolyzed POCT-GLUCOSE [id number] 04:02:00 Test Item Value Reference Range Interpretation Comments POC-GLUCOSE METER 187 mg/dL 70-110 H TESTED AT [facility] 6720 ([facility] (test code = [place] 1538) [address] POCT-GLUCOSE [id number] 02:22:00 Test Item Value Reference Range Interpretation Comments POC-GLUCOSE METER 163 mg/dL 70-110 H TESTED AT [facility] 6720 ([facility]) (test code = [place] 1538) [address] POCT-GLUCOSE [id number] 00:54:00 Test Item Value Reference Range Interpretation Comments POC-GLUCOSE METER 239 mg/dL 70-110 H TESTED AT [facility] 6720 ([facility]) (test code = [place] 1538) [address] POCT-GLUCOSE [id number] 00:11:00 Test Item Value Reference Range Interpretation Comments POC-GLUCOSE METER 29 mg/dL 70-110 LL TESTED AT [facility] 6720 ([facility] (test code = [facility] [address] 1538) POCT-GLUCOSE [id number] 21:35:00 Test Item Value Reference Range Interpretation Comments POC-GLUCOSE METER 100 mg/dL 70-110 TESTED AT [place] [address] ([facility] (test code = [facility] 1538) [address] POCT-GLUCOSE [id number] 20:24:00 Test Item Value Reference Range Interpretation Comments POC-GLUCOSE METER 57 mg/dL 70-110 L TESTED AT [place] [address] ([facility] (test code = [facility] [address] 1538) BASIC METABOLIC [id number] 18:11:00 Test Item Value Reference Range Interpretation [...] NOT APPLICABLE FOR DIALYSIS PATIEN TS. POCT-GLUCOSE [id number] 17:33:00 Test Item Value Reference Range Interpretation Comments POC-GLUCOSE METER 87 mg/dL 70-110 TESTED AT [facility] 6720 (BEAKER) (test code = [facility] [address] 1538) POCT-GLUCOSE [id number] 17:33:00 Test Item Value Reference Range Interpretation Comments POC-GLUCOSE METER 54 mg/dL 70-110 L Notified Pau Bryant MD/TESTED AT (BEAKER) (test code = [facility] [address] [facility] [place] [address] POCT-GLUCOSE [id number] 14:05:00 Test Item Value Reference Range Interpretation Comments POC-GLUCOSE METER 159 mg/dL 70-110 H TESTED AT [facility] 6720 (BEAKER) (test code = [facility] 1538) [id number] POCT-GLUCOSE [id number] 12:26:00 Test Item Value Reference Range Interpretation Comments POC-GLUCOSE METER 247 mg/dL 70-110 H TESTED AT [place] [id number] (BEAKER) (test code = [facility] 1538) [address] BASIC METABOLIC [id number] 11:20:00 Test Item Value Reference Range Interpretation [...] S NOT APPLICABLE FOR DIALYSIS PATIEN TS. [id number] 11:14:00 Test Item Value Reference Range Interpretation Comments MAGNESIUM (BEAKER) (test code = 2.2 mg/dL 1.6-2.6 627) CBC W/PLT COUNT & AUTO [id number] 11:14:00 Test Item Value Reference Range Interpretation [...] L 0.00-0.20 (test code = 417) 0.00POCT-GLUCOSE [id number] 10:17:00 Test Item Value Reference Range Interpretation Comments POC-GLUCOSE METER 172 mg/dL 70-110 H TESTED AT [place] [address] ([facility]) (test code = [place] 1538) [address] POCT-GLUCOSE [id number] 10:17:00 Test Item Value Reference Range Interpretation Comments POC-GLUCOSE METER 167 mg/dL 70-110 H TESTED AT [place] [address] ([facility]) (test code = [facility] [place] [facility] 1538) [address] POCT-GLUCOSE [id number] 10:17:00 Test Item Value Reference Range Interpretation Comments POC-GLUCOSE METER 176 mg/dL 70-110 H TESTED AT [place] [address] ([facility]) (test code = [facility] 1538) [address] [id number] 08:17:00 Test Item Value Reference Range Interpretation [...] L (test code = 2590) VANCOMYCIN LEVEL, [id number] 06:52:00 Test Item Value Reference Range Interpretation Comments VANCOMYCIN RANDOM (BEAKER) (test 12.8 ug/mL code = 523) Reference Range: No NormalsHold further dosing for vancomycin level > 20, alert MD and RphPOCT-GLUCOSE [id number] 06:16:00 Test Item Value Reference Range Interpretation Comments POC-GLUCOSE METER 179 mg/dL 70-110 H TESTED AT [place] [address] ([facility]) (test code = [facility] 1538) [address] POCT-GLUCOSE [id number] 05:08:00 Test Item Value Reference Range Interpretation Comments POC-GLUCOSE METER 185 mg/dL 70-110 H TESTED AT [facility] 6720 (BEAKER) (test code = [place] 1538) [address] PTH, [id number] 05:01:00 Test Item Value Reference Range Interpretation Comments PARATHYROID HORMONE INTACT 114.5 pg/mL 8.5-72.5 H (BEAKER) (test code = 577) Effective 08/05/2014: Reference Range ChangeNew: 8.5-72.5 Previous: 15.0-90.0 BASIC METABOLIC [id number] 04:53:00 Test Item Value Reference Range Interpretation [...] S NOT APPLICABLE FOR DIALYSIS PATIEN TS. [id number] 04:52:00 Test Item Value Reference Range Interpretation Comments PHOSPHORUS (BEAKER) (test code = 3.4 mg/dL 2.3-4.7 604) POCT-GLUCOSE [id number] 04:18:00 Test Item Value Reference Range Interpretation Comments POC-GLUCOSE METER 134 mg/dL 70-110 H TESTED AT [facility] 6720 (BEAKER) (test code = [place] 1538) [address] POCT-GLUCOSE [id number] 03:10:00 Test Item Value Reference Range Interpretation Comments POC-GLUCOSE METER 161 mg/dL 70-110 H TESTED AT [place] [id number] (BEAKER) (test code = [place] 1538) [address] POCT-GLUCOSE [id number] 02:13:00 Test Item Value Reference Range Interpretation Comments POC-GLUCOSE METER 173 mg/dL 70-110 H TESTED AT [place] [address] (BEAKER) ([facility] = [facility] [place] [address]) [address] BASIC METABOLIC [id number] 01:40:00 Test Item Value Reference Range Interpretation [...] NOT APPLICABLE FOR DIALYSIS PATIEN TS. POCT-GLUCOSE [id number] 01:10:00 Test Item Value Reference Range Interpretation Comments POC-GLUCOSE METER 114 mg/dL 70-110 H TESTED AT [facility] 6720 (BEAKER) (test code = [facility] [place] [facility] 1538) [address] POCT-GLUCOSE [id number] 00:44:00 Test Item Value Reference Range Interpretation Comments POC-GLUCOSE METER 152 mg/dL 70-110 H TESTED AT [place] [id number] (BEAKER) (test code = [facility] [place] 15[address]) [address] POCT-GLUCOSE [id number] 23:07:00 Test Item Value Reference Range Interpretation Comments POC-GLUCOSE METER 162 mg/dL 70-110 H TESTED AT [facility] 6720 (BEAKER) (test code = [facility] 1538) [address] POCT-GLUCOSE [id number] 22:12:00 Test Item Value Reference Range Interpretation Comments POC-GLUCOSE METER 115 mg/dL 70-110 H TESTED AT [facility] 67[facility] (test code = [facility] 1538) [address] POCT-GLUCOSE [id number] 21:20:00 Test Item Value Reference Range Interpretation Comments POC-GLUCOSE METER 88 mg/dL 70-110 TESTED AT [place] [address] ([facility]) (test code = [facility] [address] 1538) POCT-GLUCOSE [id number] 20:10:00 Test Item Value Reference Range Interpretation Comments POC-GLUCOSE METER 109 mg/dL 70-110 TESTED AT [place] [address] ([facility]) (test code = [facility] 1538) [address] HEPATITIS B SURFACE [id number] 19:53:00 Test Item Value Reference Range Interpretation Comments HEPATITIS B SURFACE ANTIGEN (2) Nonreactive Nonreactive (BEAKER) (test code = 2585) BASIC METABOLIC [id number] 19:35:00 Test Item Value Reference Range Interpretation [...] NOT APPLICABLE FOR DIALYSIS PATIEN TS. POCT-GLUCOSE [id number] 19:14:00 Test Item Value Reference Range Interpretation Comments POC-GLUCOSE METER 179 mg/dL 70-110 H TESTED AT [facility] 6720 (BEAKER) (test code = [place] 1538) [address] POCT-GLUCOSE [id number] 17:57:00 Test Item Value Reference Range Interpretation Comments POC-GLUCOSE METER 173 mg/dL 70-110 H TESTED AT [facility] 6720 (BEAKER) (test code = [place] 1538) [address] BASIC METABOLIC [id number] 16:42:00 Test Item Value Reference Range Interpretation [...] NOT APPLICABLE FOR DIALYSIS PATIEN TS. POCT-GLUCOSE [id number] 15:59:00 Test Item Value Reference Range Interpretation Comments POC-GLUCOSE METER 289 mg/dL 70-110 H TESTED AT [facility] 6720 (BEAKER) (test code = [place] 1538) [address] POCT-GLUCOSE [id number] 15:23:00 Test Item Value Reference Range Interpretation Comments POC-GLUCOSE METER 296 mg/dL 70-110 H TESTED AT [facility] 6720 (BEAKER) (test code = [place] 1538) [address] POCT-GLUCOSE [id number] 15:23:00 Test Item Value Reference Range Interpretation Comments POC-GLUCOSE METER 342 mg/dL 70-110 H TESTED AT [place] [address] (BEAKER) (test code = [facility] [place] 1538) [address] BASIC METABOLIC [id number] 12:33:00 Test Item Value Reference Range Interpretation [...] NOT APPLICABLE FOR DIALYSIS PATIEN TS. POCT-GLUCOSE [id number] 12:23:00 Test Item Value Reference Range Interpretation Comments POC-GLUCOSE METER 231 mg/dL 70-110 H TESTED AT [place] [address] (BEAKER) (test code = [facility] 1538) [address] HEMOGLOBIN [id number] 11:38:00 Test Item Value Reference Range Interpretation Comments HEMOGLOBIN A1C (BEAKER) (test code = 9.9 % 4.3-6.1 H 368) POCT-GLUCOSE [id number] 11:09:00 Test Item Value Reference Range Interpretation Comments POC-GLUCOSE METER 212 mg/dL 70-110 H TESTED AT [place] [address] (BEAKER) (test code = [facility] 1538) [address] BASIC METABOLIC [id number] 10:52:00 Test Item Value Reference Range Interpretation [...] S NOT APPLICABLE FOR DIALYSIS PATIEN TS. [id number] 10:31:00 Test Item Value Reference Range Interpretation Comments MAGNESIUM (BEAKER) (test code = 2.4 mg/dL 1.6-2.6 627) POCT-GLUCOSE [id number] 10:17:00 Test Item Value Reference Range Interpretation Comments POC-GLUCOSE METER 202 mg/dL 70-110 H TESTED AT [facility] 6720 (BEAKER) (test code = [place] 1538) [address] TROPONIN [id number] 10:16:00 Test Item Value Reference Range Interpretation [...] acute neurological disease, and persistent tachyarrhythmia.BLOOD GAS, [id number] 09:27:00 Test Item Value Reference Range Interpretation [...] (test code = 1819) 21.0 % POCT-GLUCOSE [id number] 09:19:00 Test Item Value Reference Range Interpretation Comments POC-GLUCOSE METER 179 mg/dL 70-110 H TESTED AT [place] [address] (BEAKER) (test code = [place] 1538) [address] LACTIC ACID, VENOUS, WHOLE [id number] 09:13:00 Test Item Value Reference Range Interpretation Comments LACTATE BLOOD VENOUS (2) (BEAKER) 1.5 mmol/L 0.5-2.2 (test code = 2872) Effective 01/20/2016: Units/Reference Range ChangeNew: 0.5-2.2 mmol/L Previous: 5-20 mg/dLKETONE, [id number] 08:51:00 Test Item Value Reference Range Interpretation Comments KETONES, BLOOD (BEAKER) (test code 0.0 mmol/L <0.4 = 1103) POCT-GLUCOSE [id number] 08:08:00 Test Item Value Reference Range Interpretation Comments POC-GLUCOSE METER 211 mg/dL 70-110 H TESTED AT [place] [address] (BEAKER) (test code = [place] 1538) [address] POCT-GLUCOSE [id number] 07:30:00 Test Item Value Reference Range Interpretation Comments POC-GLUCOSE METER 230 mg/dL 70-110 H TESTED AT [place] [address] (BEAKER) (test code = [place] 1538) [address] POCT-GLUCOSE [id number] 06:05:00 Test Item Value Reference Range Interpretation Comments POC-GLUCOSE METER 349 mg/dL 70-110 H [place] R Manny DALTON/TESTED (BEAKER) (test code = AT [facility] 6720 [facility] 1538) [facility] [address] 0 [id number] 05:46:00 Test Item Value Reference Range Interpretation Comments GLUCOSE RANDOM (BEAKER) (test code 472 mg/dL 70-105 HH = 652) Effective 08/05/2014: Reference Range Change-Adult onlyNew: 70-105 Previous: 70-110If last glucose was less than 500, may do bedside glucose instead of serum glucose.[id number] 05:31:00 Test Item Value Reference Range Interpretation Comments POTASSIUM (BEAKER) (test code = 4.8 meq/L 3.5-5.1 379) If last glucose was less than 500, may do bedside glucose instead of serum glucose.KETONE, [id number] 05:16:00 Test Item Value Reference Range Interpretation Comments KETONES, BLOOD (BEAKER) (test code 0.0 mmol/L <0.4 = 1103) POCT-GLUCOSE [id number] 05:00:00 Test Item Value Reference Range Interpretation Comments POC-GLUCOSE METER 456 mg/dL 70-110 HH TESTED AT [place] [id number] (BEAKER) (test code = [place] [address]) [address] POCT-GLUCOSE [id number] 04:08:00 Test Item Value Reference Range Interpretation Comments POC-GLUCOSE METER > mg/dL 70-110 HH OUTSIDE ME ASURING (BEAKER) (test code RANGETES CASANDRA AT [place] [address] = 1538) [facility] [address] [id number] 03:41:00 Test Item Value Reference Range Interpretation Comments GLUCOSE RANDOM (BEAKER) (test code 705 mg/dL 70-105 HH = 652) Effective 08/05/2014: Reference Range Change-Adult onlyNew: 70-105 Previous: 70-110If last glucose was less than 500, may do bedside glucose instead of serum glucose.URINALYSIS W/ REFLEX URINE [id number] 03:02:00 Test Item Value Reference Range Interpretation [...] code = 1584) SOURCE(BEAKER) (test code = 8912) [id number] 02:51:00 Test Item Value Reference Range Interpretation Comments GLUCOSE RANDOM (BEAKER) (test code 684 mg/dL 70-105 HH = 652) Effective 08/05/2014: Reference Range Change-Adult onlyNew: 70-105 Previous: 70-110If last glucose was less than 500, may do bedside glucose instead of serum glucose.COMPREHENSIVE METABOLIC [id number] 02:51:00 Test Item Value Reference Range Interpretation [...] may do bedside glucose instead of serum glucose.[id number] 02:50:00 Test Item Value Reference Range Interpretation Comments THYROID STIMULATING HORMONE 2.15 uIU/mL 0.35-4.94 (BEAKER) (test code = 772) [id number] 02:45:00 Test Item Value Reference Range Interpretation Comments MAGNESIUM (BEAKER) (test code = 2.0 mg/dL 1.6-2.6 627) [id number] 02:45:00 Test Item Value Reference Range Interpretation Comments PHOSPHORUS (BEAKER) (test code = 4.4 mg/dL 2.3-4.7 604) CREATINE KINASE (CK), TOTAL AND [id number] 02:41:00 Test Item Value Reference Range Interpretation Comments CREATINE KINASE TOTAL (BEAKER) 140 U/L 29-200 (test code = 380) CREATINE KINASE-MB (BEAKER) (test 7.2 ng/mL 0.0-6.6 H code = 750) CREATINE KINASE-MB INDEX (BEAKER) 5.1 % (test code = 395) Effective 08/05/2014: CK-MB Reference Range ChangeNew: 0.0-6.6 Previous: 0.0-4.9CK-MB Reference Range:<6.7 Normal6.7-10.0 Borderline>10.0 AbnormalTROPONIN [id number] 02:36:00 Test Item Value Reference Range Interpretation [...] renalfailure, acidosis, acute neurological disease, and persistent tachyarrhythmia.[id number] 02:31:00 Test Item Value Reference Range Interpretation Comments POTASSIUM (BEAKER) (test code = 4.8 meq/L 3.5-5.1 379) If last glucose was less than 500, may do bedside glucose instead of serum glucose.CBC W/PLT COUNT & AUTO [id number] 02:31:00 Test Item Value Reference Range Interpretation [...] 0.00-0.20 (test code = 417) 0.000.640.000.580.000.000.000.00BLOOD GAS, [id number] 02:26:00 Test Item Value Reference Range Interpretation [...] 37.0 C (test code = 1818) FIO2 (LUCY) (test code = 1819) 30.0 % LACTIC ACID, ARTERIAL, WHOLE [id number] 02:25:00 Test Item Value Reference Range Interpretation Comments LACTATE BLOOD ARTERIAL (2) 4.9 mmol/L 0.5-2.2 H (ANTONIO) (test code = 2874) Effective 01/20/2016: Units/Reference Range ChangeNew: 0.5-2.2 mmol/L Previous: 5-20 mg/dLPOCT-GLUCOSE [id number] 02:18:00 Test Item Value Reference Range Interpretation Comments POC-GLUCOSE METER 493 mg/dL 70-110 HH TESTED AT [facility] 6720 ([facility]) (test code = [place] 1538) [address] [id number] 02:17:00 Test Item Value Reference Range Interpretation Comments PARTIAL THROMBOPLASTIN TIME 25.3 seconds 22.5-36.0 ([facility]) (test code = 760) PROTHROMBIN TIME/[id number] 02:16:00 Test Item Value Reference Range Interpretation Comments PROTIME (LUCY) (test code = 13.2 seconds 11.7-14.7 759) INR ([facility]) (test code = 370) 1.0 <=5.9 RECOMMENDED COUMADIN/WARFARIN INR THERAPY RANGESSTANDARD DOSE: 2.0 - 3.0 Includes: PROPHYLAXIS forvenous thrombosis, systemic embolization; TREATMENT for venous thrombosis and/or pulmonary embolus.HIGH RISK: Target INR is 2.5-3.5 for patients with mechanical heart valves.
[2021-04-22 07:22] LABS: Absolute Lymphocytes (CBC) 0.5 K/uL (0.7-4.9); Basophils % 0.9 % (0-1.3); Lymphocytes % 7.6 % (15.3-44.8); MPV 8.9 fL (7.6-11.3); RBC Red Blood Cell Count 3.66 M/uL (4.33-5.43)
[2021-04-22 07:24] LABS: Protime INR 0.96
[2021-04-22 07:38] LABS: ALT/SGPT 56 U/L (12-78); AST/SGOT 54 U/L (15-37); Albumin 4.2 g/dL (3.4-5.0); Alkaline Phosphatase 204 U/L (45-117); BUN Blood Urea Nitrogen 43 mg/dL (7-18); Bicarbonate 24 mmol/L (21-32); Bilirubin Direct 0.2 mg/dL (0-0.2); Bilirubin Total 0.5 mg/dL (0.2-1.0); Magnesium 2.4 mg/dL (1.8-2.4); Protein, Total 7.7 g/dL (6.4-8.2); Sodium Level 120 mmol/L (136-145); Troponin (Emerg Dept Use Only) < 0.02 ng/mL (0.0-0.045)
[2021-04-22] MEDS ORDERED: HYDRALAZINE HCL 20 MG/ML VIAL ONE ×2 (07:46→19:21)
[2021-04-22 07:51] LABS: Glucose Level 1006 mg/dL (74-106)
[2021-04-22 07:52] LABS: Potassium 5.9 mmol/L (3.5-5.1)
[2021-04-22] MEDS ORDERED: NA CHLORIDE 0.9% 500 ML ONE (07:56)
[2021-04-22] MEDS ORDERED: INSULIN -REGULAR HUMAN 50 UNIT/0.5 ML ML ONE (07:56)
[2021-04-22] MEDS: INSULIN -REGULAR HUMAN 100 UNIT in NA CHLORIDE 0.9% 100 ML IV ONE ×3 (08:06→14:02)
[2021-04-22 08:18] LABS: NT PRO-BNP 34430 pg/mL (<125)
--- NOTE | 2021-04-22 09:45 | ER ---
Nurse's Notes [facility] Name: Orlando Culp Age: 45 yrs Sex: Male : 1975 Arrival Date: 04/22/2021 Time: 06:50 Bed 8 Private MD: Diagnosis: Type 2 diabetes mellitus with hyperosmolarity without nonketotic hyperglycemic-hyperosmolar coma ([facility]);Hypertensive Urgency Presentation: 04/22 06:50 Chief complaint: EMS states: Pt is altered and combative, BGL is above readable levels. jb4 Pt is hypertensive at 222/112. Pt briefly went unresponsive. Oxygen dropped into the 70's and , gave supplemental oxygen via non-rebreather. Oxygen came back to 96% pt returned to awake and agitated state. 06:50 Coronavirus screen: Client denies travel out of the [place] in the last 14 days. At this jb4 time, the client does not indicate any symptoms associated with coronavirus-19. Ebola Screen: No symptoms or risks identified at this time. 06:50 Method Of Arrival: EMS: [facility] jb4 06:50 Initial Sepsis Screen: Does the patient meet any 2 criteria? Altered Mental Status. HR jb4 > 90 bpm. Yes Does the patient have a suspected source of infection? No. Patient's initial sepsis screen is negative. Risk Assessment: Do you want to hurt yourself or someone else? Unable to obtain. Onset of symptoms was April 22, 2021. Transition of care: patient was not received from another setting of care. 06:50 Acuity: DEMARIO 2 jb4 Historical: - Allergies: 06:50 PENICILLINS; jb4 06:50 Phenergan; jb4 - Home Meds: 06:50 Unable to obtain [Active]; jb4 - PMHx: 06:50 Diabetes - IDDM; ESRD; GERD; Hypertension; dialysis (port in left upper arm); jb4 - PSHx: 06:50 Unable to Obtain; jb4 - Immunization history:: Adult Immunizations unknown. - Social history:: Smoking status: unknown. Screenin/06 01:18 Abuse screen: Denies threats or abuse. Nutritional screening: No deficits noted. em Tuberculosis screening: No symptoms or risk factors identified. Fall Risk None identified. Vital Signs: 08/05 06:50 BP 222 / 127; Pulse 95; Resp 20; Temp 97.5(TE); Pulse Ox 96% on R/A; Weight 68.04 kg jb4 (R); 07:41 BP 181 / 107; Pulse 101; Resp 20; Pulse Ox 98% on R/A; bs2 10:09 BP 194 / 104; Pulse 97; Resp 18; Pulse Ox 99% ; ll1 [place] Coma Score: 08:45 Eye Response: to pain(2). Verbal Response: incomprehensible(2). Motor Response: jr8 localizes pain(5). Total: 9. ED Course: 06:50 Patient arrived in ED. mw2 06:57 Rik Gastelum PA is PHCP. jr8 06:57 Gurinder Branch MD is Attending Physician. jr8 07:01 Arm band placed on Patient placed in an exam room, on a stretcher. bs2 07:22 Abby Borja, RN is Primary Nurse. bs2 07:29 Triage completed. jb4 07:40 Notified Nurse Practitioner and/or Physician Noc Analyst of a critical lab result(s), jb4 Sodium 120, Potassium 5.9, Chloride 83, BGL 1006. 07:57 XRAY Chest (1 view) In Process Unspecified. EDMS 08:53 initiated transfer to [facility] with Sridhar, denied due to being at full tx capacity. 09:01 initiated transfer to [facility] with Ivy. mt 09:17 Ivy with [facility] denied due to being at full capacity. mt 09:24 initiated transfer to [facility] with Anna, denied due to being at full capacity. mt 09:35 transfer initiated to [facility], denied due to being at full capacity. mt 09:44 Kemar Mercado DO is Hospitalizing Provider. jr8 10:11 Blood glucose 644, IV insulin reduced to 5 ml/hr. ll1 10:13 CT Head Brain wo Cont In Process Unspecified. EDMS 08/06 01:18 Patient has correct armband on for positive identification. em 01:18 Patient admitted, IV remains in place. em 01:19 No provider procedures requiring assistance completed. em 10:25 Glucose Sent. sv 10:25 Glucose, Ancillary Testing Sent. sv 10:25 Osmolality, Serum Sent. sv 10:25 glucometer results - FOR PT WITH NO ID Sent. sv Administered Medications: 04/22 07:29 Drug: hydrALAZINE 10 mg Route: IVP; Site: right jugular; bs2 10:47 Follow up: Response: No adverse reaction ll1 07:40 Drug: Insulin Regular Human 10 units {Co-Signature: cielo (Lisa Galicia RN).} Route: bs2 IVP; Site: right jugular; 10:48 Follow up: Response: No adverse reaction ll1 07:40 Drug: NS 0.9% 500 ml Route: IV; Rate: bolus; Site: right jugular; bs2 10:48 Follow up: Response: No adverse reaction; IV Status: Completed infusion; IV Intake: ll1 500ml 08:07 Drug: Insulin Drip - (Insulin Regular Human 100 units, NS 0.9% 100 ml) {Co-Signature: lai2 cielo (Lisa Galicia RN).} Route: IV; Rate: calculated rate; Site: right jugular; 10:47 Follow up: Response: No adverse reaction; IV Status: Infusion continued upon admission; ll1 IV Intake: 15ml 09:35 Drug: hydrALAZINE 10 mg Route: IVP; Site: right jugular; ll1 10:47 Follow up: Response: No adverse reaction ll1 Intake: 10:47 IV: 15ml; Total: 15ml. ll1 10:48 IV: 500ml; Total: 515ml. ll1 Outcome: 09:45 Decision to Hospitalize by Provider. jr8 04/23 01:19 Admitted to ER Hold. Please see [facility] for further documentation. em Condition: stable Instructed on the need for admit, Demonstrated understanding of instructions. 15:42 Patient left the ED. hb Signatures: Dispatcher GregorioHo Annabella Hawk RN KAELA Jason Gurrola RN RN em Rik Gastelum PA PA jr8 Lisa Galicia RN RN Varun Power RN RN jb4 Thompson, Moriah [facility] [place] 2 Jasper Sommer RN RN ll1 Abby Borja RN RN bs2 Lisa Galicia RN Corrections: (The following items were deleted from the chart) 04/22 09:00 08:53 initiated transfer to [facility], denied due to being at full capacity [facility]
--- NOTE | 2021-04-22 09:45 | EDPHYS ---
Physician Documentation [facility] Name: Orlando Culp Age: 45 yrs Sex: Male : 1975 Arrival Date: 04/22/2021 Time: 06:50 Bed 8 Private MD: ED Physician Gurinder Branch HPI: 04/22 08:45 This 45 yrs old Male presents to ER via EMS with complaints of Altered mental jr8 status. 08:45 The patient presents with agitation, confusion, decreased mental status. Onset: The jr8 symptoms/episode began/occurred acutely, today. Possible causes: unknown. Associated signs and symptoms: The patient has no apparent associated signs or symptoms. Current symptoms: In the emergency department the patient's symptoms are unchanged from the initial presentation. Patient's baseline: Neuro: alert and fully oriented. It is unknown whether or not the patient has had similar symptoms in the past. It is unknown whether or not the patient has recently seen a physician. Brother of patient called EMS this morning after patient was found to be altered. EMS on scene stated that patient's blood sugar read high. Patient was brought to the emergency room at that time for further evaluation. Upon arrival patient hypertensive and not alert to person, place, time, or event. Patient is responsive to painful stimulus. Historical: - Allergies: 06:50 PENICILLINS; jb4 06:50 Phenergan; jb4 - Home Meds: 06:50 Unable to obtain [Active]; jb4 - PMHx: 06:50 Diabetes - IDDM; ESRD; GERD; Hypertension; dialysis (port in left upper arm); jb4 - PSHx: 06:50 Unable to Obtain; jb4 - Immunization history:: Adult Immunizations unknown. - Social history:: Smoking status: unknown. ROS: 08:45 Unable to obtain ROS due to altered mental status. jr8 Exam: 08:45 Skin: Warm, dry with normal turgor. Normal color with no rashes, no lesions, and no jr8 evidence of cellulitis. MS/ Extremity: Pulses equal, no cyanosis. Neurovascular intact. Full, normal range of motion. 08:45 Cardiovascular: Rate: tachycardic, Rhythm: regular, Pulses: Pulses are 2+ in right radial artery and left radial artery. Heart sounds: normal, normal S1and S2, no S3 or S4, Edema: is not appreciated, JVD: is not appreciated. 08:45 Respiratory: the patient does not display signs of respiratory distress, Respirations: normal, Breath sounds: are clear throughout, no bronchial sounds, no decreased breath sounds, no rales, rhonchi, no stridor, no wheezing. 08:45 Abdomen/GI: Inspection: abdomen appears normal, Bowel sounds: active, all quadrants, Palpation: soft, in all quadrants, No grimace upon palpation . 08:45 Neuro: Orientation: Not oriented to person, place, time, situation, Mentation: inappropriate for stated age, Memory: unable to test, Cranial nerves: unable to test, Cerebellar function: unable to test, Motor: moves all fours, seizure activity, is not displayed by the patient, Abnormal movements: there are no abnormal movements. Vital Signs: 06:50 BP 222 / 127; Pulse 95; Resp 20; Temp 97.5(TE); Pulse Ox 96% on R/A; Weight 68.04 kg jb4 (R); 07:41 BP 181 / 107; Pulse 101; Resp 20; Pulse Ox 98% on R/A; bs2 10:09 BP 194 / 104; Pulse 97; Resp 18; Pulse Ox 99% ; ll1 [place] Coma Score: 08:45 Eye Response: to pain(2). Verbal Response: incomprehensible(2). Motor Response: jr8 localizes pain(5). Total: 9. MDM: 06:57 Patient medically screened. jr8 08:45 Data reviewed: vital signs, nurses notes, lab test result(s), EKG, radiologic studies, jr8 CT scan, plain films. Data interpreted: Pulse oximetry: on room air is 98 %. Interpretation: normal. Counseling: I had a detailed discussion with the patient and/or guardian regarding: the historical points, exam findings, and any diagnostic results supporting the discharge/admit diagnosis, lab results, radiology results, the need to transfer to another facility, for higher level of care. ED course: At this time we have no medical ICU available. We will attempt to transfer. 09:43 ED course: Tried [facility], [place], [facility], [facility].. All at capacity. Discussed case with jr8 Dr. Hanley and will see patient . 04/22 06:52 Order name: glucometer results - FOR PT WITH NO ID 2 04/22 06:52 Order name: Glucose, Ancillary(No Armband); Complete Time: 09:41 EDMS 04/22 06:57 Order name: Basic Metabolic Panel; Complete Time: 08:29 8 04/22 06:57 Order name: CBC with Diff; Complete Time: 14:30 8 04/22 06:57 Order name: LFT's; Complete Time: 08:29 8 04/22 06:57 Order name: Magnesium; Complete Time: 08:29 8 04/22 06:57 Order name: NT PRO-BNP; Complete Time: 08:29 8 04/22 06:57 Order name: PT-INR; Complete Time: 07:31 8 04/22 06:57 Order name: Troponin (emerg Dept Use Only); Complete Time: 08:29 8 04/22 08:40 Order name: Osmolality, Serum rust 04/22 08:41 Order name: Osmolality, Serum; Complete Time: 10:33 EDMS 04/22 09:16 Order name: Glucose; Complete Time: 10:33 1 04/22 09:34 Order name: Glucose, Ancillary Testing; Complete Time: 09:41 EDMS 04/22 09:35 Order name: Glucose, Ancillary Testing EDMS 04/22 09:42 Order name: ABG; Complete Time: 12:55 jr8 04/22 10:27 Order name: Glucose 1 04/22 10:38 Order name: Glucose, Ancillary Testing; Complete Time: 10:56 EDMS 04/22 10:45 Order name: SARS-COV-2 RT PCR; Complete Time: 10:56 EDMS 04/22 10:57 Order name: Glucose Level; Complete Time: 11:05 EDMS 04/22 11:17 Order name: Ammonia; Complete Time: 11:37 EDMS 04/22 11:44 Order name: Hemoglobin A1c; Complete Time: 12:12 EDMS 04/22 11:47 Order name: Glucose, Ancillary Testing; Complete Time: 12:12 EDMS 04/22 12:48 Order name: Glucose, Ancillary Testing; Complete Time: 12:55 EDMS 04/22 13:09 Order name: Basic Metabolic Panel; Complete Time: 13:32 EDMS 04/22 14:08 Order name: CBC Smear Scan; Complete Time: 14:30 EDMS 08/05 14:10 Order name: Glucose, Ancillary Testing; Complete Time: 14:30 EDMS 04/22 16:23 Order name: Glucose, Ancillary Testing; Complete Time: 16:23 EDMS 04/22 17:23 Order name: Glucose, Ancillary Testing; Complete Time: 06:49 EDMS 04/22 06:57 Order name: XRAY Chest (1 view); Complete Time: 10:33 jr8 04/22 06:57 Order name: EKG; Complete Time: 06:58 jr8 04/22 06:57 Order name: Cardiac monitoring; Complete Time: 07:02 jr8 04/22 06:57 Order name: EKG - Nurse/Tech; Complete Time: 07:40 jr8 04/22 06:57 Order name: IV Saline Lock; Complete Time: 07:02 jr8 04/22 06:57 Order name: Labs collected and sent; Complete Time: 07:02 jr8 04/22 06:57 Order name: O2 Per Protocol; Complete Time: 07:02 jr8 04/22 06:57 Order name: O2 Sat Monitoring; Complete Time: 07:02 jr8 04/22 06:57 Order name: Glucose Level; Complete Time: 10:25 jr8 04/22 06:58 Order name: CT Head Brain wo Cont; Complete Time: 10:33 jr8 04/22 23:07 Order name: Glucose, Ancillary Testing; Complete Time: 06:49 EDMS 04/22 23:44 Order name: C-Reactive Protein; Complete Time: 06:49 EDMS 04/22 23:44 Order name: Ferritin; Complete Time: 06:49 EDMS 04/23 03:09 Order name: Gram Stain; Complete Time: 12:15 EDMS 04/23 03:09 Order name: Blood Culture EDMS 04/23 04:10 Order name: Glucose, Ancillary Testing; Complete Time: 06:49 EDMS 08 06:23 Order name: Glucose, Ancillary Testing; Complete Time: 06:49 EDMS 04/23 07:23 Order name: Gram Stain--Aerobic Bottle EDMS 04/23 07:23 Order name: Gram Stain--Anaerobic Bottle EDMS 08 07:53 Order name: Glucose, Ancillary Testing; Complete Time: 08:10 EDMS 08 08:08 Order name: CBC with Automated Diff; Complete Time: 08:10 EDMS 06 08:51 Order name: Basic Metabolic Panel; Complete Time: 08:59 EDMS 0806 08:51 Order name: Lipid Profile; Complete Time: 08:59 EDMS 0806 08:51 Order name: T4 Free; Complete Time: 08:59 EDMS 0806 08:51 Order name: Magnesium; Complete Time: 08:59 EDMS 0806 08:51 Order name: Thyroid Stimulating Hormone; Complete Time: 08:59 EDMS 0806 12:09 Order name: Glucose, Ancillary Testing; Complete Time: 12:15 EDMS 0805 17:39 Order name: Labs - recollect needed; Complete Time: 10:24 mt Administered Medications: 07:29 Drug: hydrALAZINE 10 mg Route: IVP; Site: right jugular; bs2 10:47 Follow up: Response: No adverse reaction ll1 07:40 Drug: Insulin Regular Human 10 units {Co-Signature: hb (Lisa Galicia RN).} Route: bs2 IVP; Site: right jugular; 10:48 Follow up: Response: No adverse reaction ll1 07:40 Drug: NS 0.9% 500 ml Route: IV; Rate: bolus; Site: right jugular; bs2 10:48 Follow up: Response: No adverse reaction; IV Status: Completed infusion; IV Intake: ll1 500ml 08:07 Drug: Insulin Drip - (Insulin Regular Human 100 units, NS 0.9% 100 ml) {Co-Signature: bs2 hb (Lisa Galicia RN).} Route: IV; Rate: calculated rate; Site: right jugular; 10:47 Follow up: Response: No adverse reaction; IV Status: Infusion continued upon admission; ll1 IV Intake: 15ml 09:35 Drug: hydrALAZINE 10 mg Route: IVP; Site: right jugular; ll1 10:47 Follow up: Response: No adverse reaction ll1 Disposition: 04/23 19:08 Co-signature as Attending Physician, Gurinder Branch MD. pkl Disposition Summary: 04/22/21 09:45 Hospitalization Ordered Hospitalization Status: Inpatient Admission jr8 Provider: Kemar Mercado Condition: Fair jr8 Problem: new jr8 Symptoms: have improved jr8 Bed/Room Type: Standard rust Location: Intensive Care Unit(04/23/21 13:49) aa5 Room Assignment: 8-(04/23/21 13:49) aa5 Diagnosis - Type 2 diabetes mellitus with hyperosmolarity without nonketotic jr8 hyperglycemic-hyperosmolar coma ([facility]) - Hypertensive Urgency jr8 Forms: - Medication Reconciliation Form jr8 - SBAR form jr8 Signatures: Dispatcher [employer] EDMS Gurinder Branch MD MD pkl Calderon, Audri, RN RN aa5 Jo-Ann Corrigan RN RN Rik Gastelum PA PA jr8 Varun Power RN RN jb4 Mariam Thompson mt, Lynsay, RN RN ll1 Abby Borja RN RN bs2 Lisa Galicia RN Corrections: (The following items were deleted from the chart) 04/22 09:40 08:57 CORONAVIRUS+BRZ ordered. EDMA EDMS 13:22 09:45 Intensive Care Unit jr8 13:22 09:45 jr8 04/23 13:49 08 13:22 [facility] ER [facility] aa5 04/23 13:49 04/22 13:22 [place] [id number]
--- NOTE | 2021-04-22 09:58 | RAD REPORT ---
EXAM DESCRIPTION: RAD - Chest Single View - 04/22/2021 7:57 am CLINICAL HISTORY: CHEST PAIN Chest pain. COMPARISON: Chest Single View dated 01/16/2021; Chest Single View dated 01/14/2021; Chest Single View d ated 01/07/2021; Chest Single View dated 03/09/2020 FINDINGS: Portable technique limits examination quality. Mild to moderate bilateral pulmonary opacities are present likely representing viral infection. The h eart is normal in size. No displaced fractures.
--- NOTE | 2021-04-22 10:28 | RAD REPORT ---
EXAM DESCRIPTION: CT - Head Brain Wo Cont - 04/22/2021 10:13 am CLINICAL HISTORY: CONFUSED Headache, drowsiness COMPARISON: Head Brain Wo Cont dated 03/09/2020; Facial Bones W/ Mpr dated 03/09/2020 TECHNIQUE: All CT scans are performed using dose optimization technique as appropriate and may inclu de automated exposure control or mA/KV adjustment according to patient size. FINDINGS: No intracranial hemorrhage, hydrocephalus or extra-axial fluid collection.Mild brain atrop hy is present.No areas of brain edema or evidence of midline shift. Right mastoid effusion is present. The calvarium is intact. Calcified right lobe, chronic. IMPRESSION: No acute intracranial abnormality. Right mastoid effusion.
[2021-04-22] MEDS ORDERED: INSULIN -REGULAR HUMAN 100 UNIT in NA CHLORIDE 0.9% 100 ML IV SCH (10:30)
--- NOTE | 2021-04-22 10:33 | P.HP ---
Certification for Inpatient Patient admitted to: Inpatient With expected LOS: >2 Midnights Patient will require the following post-hospital care: None Practitioner: I am a practitioner with admitting privileges, knowledge of patient current condition, hospital course, and medical plan of care. Services: Services provided to patient in accordance with Admission requirements found in Title 42 Section 412.3 of the Code of Federal Regulations Patient History Date of Service: 04/22/21 Primary Care Provider: unknown; Nephrology-Dr. Shah Reason for admission: Altered mental status History of Present Illness: 45-year-old male with history of diabetes mellitus type 2, hypertension, end-stage renal disease, poor compliance. Patient presented with confusion. 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 Nephrology reports patient went to dialysis on Monday. Patient with history of hyperosmolar nonketotic state. Patient has a history of noncompliance. He was getting dialysis as needed then once he got insurance this was switched to regular dialysis. Patient was recently taken off insulin d ue to hypoglycemia. He was placed on glipizide as reported by nephrology. Patient with confusion. Not able to give adequate history. He does report some diarrhea. Otherwise patient stable patient was to be transferred due to lack of ICU beds. No availability noted. On lab blood sugars greater than 500. White count 6.8, hemoglobin 11.6. Platelet count 147. Sodium 120, potassium 5.9. BUN of 43, creatinine 6.24 with a GFR of 10. Covid test pending. Patient with history of Covid in December. Chest x-ray pending. CT head pending. Patient admitted for treatment. Patient was started on insulin drip. IV fluids to be initiated. Allergies Penicillins Allergy (Intermediate, Verified 04/27/20 15:35) Rash promethazine [From Phenergan] Allergy (Verified 04/27/20 15:35) Rash Home medications list reviewed: Yes Home Medications: Apixaban [Eliquis *] 2.5 mg PO BID #60 tablet 01/10/21 Na Bicarb Tab [Sodium Bicarb 325 MG Tab*] 1,950 mg PO BID #60 tab 01/10/21 carvediloL [Coreg*] 6.25 mg PO BID #60 tab 01/10/21 Ascorbic Acid [Vitamin C*] 500 mg PO TID #60 tablet 01/21/21 Calcitrol [Rocaltrol*] 0.5 mcg PO Q48H #14 cap 01/21/21 Calcium Carbonate [Tums Regular*] 1,000 mg PO AC #30 tab 01/21/21 Cholecalciferol (Vitamin D3) [Vitamin D 1000 Iu Tab*] 2,000 unit PO DAILY #30 tab 01/21/21 Glucerna Shake [Glucerna*] 237 ml PO BID #60 can 01/21/21 Metoclopramide [Reglan*] 5 mg PO ACHS #60 tab 01/21/21 Midodrine HCl 5 mg PO BID #60 tablet 01/21/21 Thiamine HCl [Vitamin B-1*] 100 mg PO BID #60 tablet 01/21/21 Zinc Sulfate [Zinc Sulfate*] 220 mg PO DAILY #20 cap 01/21/21 levoFLOXacin [Levaquin*] 250 mg PO Q48H #7 tab 01/21/21 predniSONE [Deltasone*] 10 mg PO BID #10 tab 01/21/21 - Past Medical/Surgical History Diabetic: Yes -: Diabetes mellitus type 2 -: ESRD on HD TTS -: Hypertension -: Rt eye sx -: chin sx with wound vac Psychosocial/ Personal History: Unable to obtain - Family History Mother -: Hypertension - Social History Smoking Status: Unknown if ever smoked Alcohol use: No CD- Drugs: No Caffeine use: No Place of Residence: Home Review of Systems is unable to be obtained Physical Examination - Studies Laboratory Data (last 24 hrs) 04/22/21 09:25: Glucose 644 H* 04/22/21 07:00: PT 11.0, INR 0.96 04/22/21 07:00: WBC 6.80, Hgb 11.6 L, Hct 36.0 L, Plt Count 146 L 04/22/21 07:00: Sodium 120 L, Potassium 5.9 H*, BUN 43 H, Creatinine 6.24 H*, Glucose 1006 H*, Magnesium 2.4, Total Bilirubin 0.5, AST 54 H, ALT 56, Alkaline Phosphatase 204 H Assessment and Plan - Plan COVID: Pending with history of Covid in December CT head: Pending Chest x-ray: COMPARISON: Chest Single View dated 01/16/2021; Chest Single View dated 01/14/2021; Chest Single View dated 01/07/2021; Chest Single View dated 03/09/2020 FINDINGS: Portable technique limits examination quality. Mild to moderate bilateral pulmonary opacities are present likely representing viral infection. The heart is normal in size. No displaced fractures. Physical Exam: GENERAL: Dry mucous membranes noted. VITAL SIGNS: Reviewed HEENT: Mild swelling to the eyes bilateral.. NECK: Supple. No carotid bruits. No lymphadenopathy or thyromegaly. LUNGS: Clear to auscultation. No crackles or wheezes are heard. HEART: Regular rate and rhythm, no appreciable gallops, rubs, murmurs or extra heart sounds ABDOMEN: Soft, nontender, and nondistended. Positive bowel sounds. No hepatosplenomegaly was noted. EXTREMITIES: Without any cyanosis, clubbing, rash, lesions or peripheral edema. NEUROLOGIC: The patient is oriented to person, place and time. Strength and sensation are grossly intact. Face is symmetric. SKIN: Normal color, turgor and temperature. No ulcerations or rashes noted. Impression: Altered mental status secondary to metabolic encephalopathy likely hyperosmolar nonketotic hyperglycemia with diabetes mellitus type 2 End-stage renal disease on hemodialysis with pseudohyponatremia Hypertension Diarrhea Noncompliance with follow-up Plan: Altered mental status secondary to metabolic encephalopathy likely hyperosmolar nonketotic hyperglycemia with diabetes mellitus type 2: Patient slightly more alert but still confused. Will monitor this closely. Will obtain CT head to further evaluate. Confusion likely related to hyperosmolar nonketotic hyperosmolar state. Will continue with IV insulin. Will start IV fluids as recommended by nephrology. Will monitor BMP and Accu-Cheks closely. Once blood sugar better controlled then will transition to subcu insulin. Patient reports diarrhea. Will monitor this closely. Will obtain cultures. Blood, urine cultures obtained. Will check urine drug screen. Will check ammonia level. Covid test pending. End-stage renal disease on hemodialysis with pseudohyponatremia: Continue IV fluids. Patient will receive dialysis. Case discussed with nephrology. Hypertension: Will start IV hydralazine. Need to obtain and verify home m edication. Diarrhea: Will check stool cultures. Will monitor and evaluate closely. Noncompliance with follow-up: Patient last went to dialysis on Monday. Code Status: Full Code DVT prophylaxis: Heparin Advanced Care Planning-30 minutes: Home at discharge Discharge Plan: Home Plan to discharge in: Greater than 2 days - Advance Directives Does patient have a Living Will: No Does patient have a Durable POA for Healthcare: No - Code Status/Comfort Care Code Status Assessed: Yes (Patient is full code) Time Spent Managing Pts Care (In Minutes): 60
[2021-04-22 10:37] LABS: Arterial Blood Carboxyhemoglob 0.1 % (0-1.5); Blood Gas Oxyhemoglobin 91.2 % (94-97); Blood O2 Saturation 91.9 % (92-98.5)
[2021-04-22] MEDS ORDERED: NA CHLORIDE 0.9% 1,000 ML IV SCH (11:00)
[2021-04-22 11:43] VITALS: BMI 25.5
[2021-04-22 13:08] LABS: Potassium 5.2 mmol/L (3.5-5.1)
--- NOTE | 2021-04-22 13:42 | CON ---
Date of Consultation: 04/22/2021 Additional Consulting Physician: ER physician, Mr. Jolly. Reason For Consultation: Elevated BUN and creatinine, fluid management, end- stage renal disease, hypertension. 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 The patient's last dialysis was Monday at the unit, [facility]. The patient was brought because of altered mental status, found to have blood sugar above 1000 with hyponatremia, sodium 120. For that reason, we have been consulted. The patient has still altered mental status, provided any history by calling the dialysis center. The patient is having experiencing low blood sugar. For that reason, insulin was discontinued, placed on glipizide, that happened 4 weeks ago. Allergies: TO PENICILLIN AND PROMETHAZINE. Home Medications: Include Eliquis, carvedilol, and prednisone. Past Medical History: Includes; 1. Diabetes complicated with neuropathy, retinopathy, and nephropathy. 2. End-stage renal disease, on hemodialysis, TTS through left arm loop graft. 3. Hypertension. 4. Venous central stenosis. Family History: Positive for hypertension. Social History: Denied smoking. Denied drinking. Denied drugs abuse. Review of Systems: Not obtainable. Physical Examination: General: When I saw the patient, the patient confused, pleasant. Vital Signs: Blood pressure 199/100, pulse of 89, afebrile. Chest: Clear to auscultation. Heart: S1, S2. Systolic murmur. Abdomen: Soft, nontender. Extremity: No edema. Left loop graft, good bruit. Neuro: Alert, confused. No focality. Laboratory Data: WBC 6.8, H and H 11.6/36. Sodium 120, potassium 5.9, bicarb 24, BUN 43, creatinine 6.2, blood sugar 1006, calcium 8.1, magnesium 2.4. BNP 3400. ABG; pH 7.33, CO2 36, O2 74, base access -6. Assessment And Plan: 1. End-stage renal disease with DKA. I am going to dialyze the patient. The patient with the presence of hyperkalemia and hyponatremia. I am going to decrease the blood flow to 250 and we will dialyze the patient on low sodium bath and 3 potassium baths given the DKA to avoid severe hypokalemia, given the fact that the patient is going to be on insulin drip. 2. Hyponatremia. False going to be corrected with hyperglycemia to be around 135. Anyhow, the patient is going to be dialyzed on sodium 136 to low BF to avoid over correction of the hypoNa . 3. DKA with anion gap metabolic acidosis and contraction alkalosis, going to be corrected with dialysis. Continue insulin drip as by protocol. 4. Hyperkalemia with the presence of DKA and renal failure. I am going to dialyze the patient on 3K bath and we will follow up. The patient may need another session of dialysis tomorrow. We are not going to challenge the patient. 5. Facial swelling secondary to central stenosis. No need for any challenge right now. The patient looked to me on the normal volume side. 6. Anemia of chronic kidney disease. The patient has no need for MARIKA. 7. Diabetes with DKA as by primary and as above. We will start the patient on normal saline, continue on insulin drip. Time spent examining the patient, discussing with staff, placing the orders, examining the patient [id number], discussing with hospitalist and reviewing data 75 minutes. MUKESH Voice ID: [id number] Report ID: [id number] ADRIA
[2021-04-22 14:07] LABS: White Blood Cell Scan OK (OK)
[2021-04-22 14:08] LABS: Blood Morphology Comment NOT SEEN (NOT SEEN); Platelet Estimate DECR
[2021-04-22] MEDS ORDERED: ONDANSETRON 4 MG/2 ML VIAL IV PRN (16:41)
[2021-04-22] MEDS ORDERED: ACETAMINOPHEN 650MG/RECT SUPP PR PRN (16:41)
[2021-04-22] MEDS ORDERED: ACETAMINOPHEN 500 MG TAB PO PRN (16:41)
[2021-04-22] MEDS: HEPARIN 5000 UNIT/ML 1 ML VIAL SQ SCH (21:00)
[2021-04-22 23:44] LABS: C-Reactive Protein 20.7 mg/L (<3.00); Ferritin 905.7 ng/mL (26-388)
[2021-04-23] MEDS: HYDRALAZINE HCL 20 MG/ML VIAL IV PRN (01:37)
--- NOTE | 2021-04-23 06:29 | P.PN ---
Subjective Date of Service: 04/23/21 Primary Care Provider: unknown; Nephrology-Dr. Shah Chief Complaint: Altered mental status Subjective: No new changes Physical Examination - Vital Signs Temperature: 98.1 F Blood Pressure: 168/88 Pulse: 89 Respirations: 15 Pulse Ox (%): 99 - Physical Exam General: In no apparent distress HEENT: Atraumatic, Normocephalic Neck: Supple, JVD not distended Respiratory: Diminished Cardiovascular: No rubs, No murmurs Gastrointestinal: Soft and benign Musculoskeletal: No clubbing Integumentary: No warmth Neurological: Normal tone External genitalia: Deferred Rectal: Deferred - Studies Laboratory Data (last 24 hrs) 04/22/21 09:25: Glucose 644 H* 04/22/21 07:00: PT 11.0, INR 0.96 04/22/21 07:00: WBC 6.80, Hgb 11.6 L, Hct 36.0 L, Plt Count 146 L 04/22/21 07:00: Sodium 120 L, Potassium 5.9 H*, BUN 43 H, Creatinine 6.24 H*, Glucose 1006 H*, Magnesium 2.4, Total Bilirubin 0.5, AST 54 H, ALT 56, Alkaline Phosphatase 204 H Assessment And Plan - Plan # ESRD on HD TTS at [facility] HD received yesterday No acute indication for HD today next HD tomorrow HD access: L arm AVG EDW: 56.5 kgs Renal vit po daily Renal + DM diet Monitor renal panel # Facial edema 2/2 central vein stenosis monitor # DM c/b HONK DKA resolved Mngt per primary team # Acute encephalopathy 2/2 HONK Monitor # Hyperkalemia resolved Monitor # Hyponatremia resolved Monitor # Anemia Monitor H/H # Renal osteodystrophy Monitor Ca & Phos
--- NOTE | 2021-04-23 06:31 | P.PN ---
Subjective Date of Service: 04/23/21 Primary Care Provider: unknown; Nephrology-Dr. Shah Chief Complaint: Altered mental status Subjective: Improving Physical Examination - Vital Signs Temperature: 98.1 F Blood Pressure: 168/88 Pulse: 89 Respirations: 15 Pulse Ox (%): 99 - Studies Laboratory Data (last 24 hrs) 04/22/21 09:25: Glucose 644 H* 04/22/21 07:00: PT 11.0, INR 0.96 04/22/21 07:00: WBC 6.80, Hgb 11.6 L, Hct 36.0 L, Plt Count 146 L 04/22/21 07:00: Sodium 120 L, Potassium 5.9 H*, BUN 43 H, Creatinine 6.24 H*, Glucose 1006 H*, Magnesium 2.4, Total Bilirubin 0.5, AST 54 H, ALT 56, Alkaline Phosphatase 204 H Assessment & Plan Discharge Plan: Home Plan to discharge in: 24 Hours Physician Review Additional Text: COVID: Positive with history of Covid in December CT head: COMPARISON: Head Brain Wo Cont dated 03/09/2020; Facial Bones W/ Mpr dated 03/09/2020 TECHNIQUE: All CT scans are performed using dose optimization technique as appropriate and may include automated exposure control or mA/KV adjustment according to patient size. FINDINGS: No intracranial hemorrhage, hydrocephalus or extra-axial fluid collection.Mild brain atrophy is present.No areas of brain edema or evidence of midline shift. Right mastoid effusion is present. The calvarium is intact. Calcified right lobe, chronic. IMPRESSION: No acute intracranial abnormality. Right mastoid effusion. Chest x-ray: COMPARISON: Chest Single View dated 01/16/2021; Chest Single View dated 01/14/2021; Chest Single View dated 01/07/2021; Chest Single View dated 03/09/2020 FINDINGS: Portable technique limits examination quality. Mild to moderate bilateral pulmonary opacities are present likely representing viral infection. The heart is normal in size. No displaced fractures. Physical Exam: GENERAL: Dry mucous membranes noted. Patient more alert today. VITAL SIGNS: Reviewed HEENT: Mild swelling to the eyes bilateral.. NECK: Supple. No carotid bruits. No lymphadenopathy or thyromegaly. LUNGS: Clear to auscultation. No crackles or wheezes are heard. Patient on room air. HEART: Regular rate and rhythm, no appreciable gallops, rubs, murmurs or extra heart sounds ABDOMEN: Soft, nontender, and nondistended. Positive bowel sounds. No hepatosplenomegaly was noted. EXTREMITIES: Without any cyanosis, clubbing, rash, lesions or peripheral edema. NEUROLOGIC: The patient is oriented to person, place and time. Strength and sensation are grossly intact. Face is symmetric. SKIN: Normal color, turgor and temperature. No ulcerations or rashes noted. Impression: Altered mental status secondary to metabolic encephalopathy likely hyperosmolar nonketotic hyperglycemia with diabetes mellitus type 2 End-stage renal disease on hemodialysis with pseudohyponatremia Hypertension Diarrhea Positive COVID-19 asymptomatic Noncompliance with follow-up Plan: Altered mental status secondary to metabolic encephalopathy likely hyperosmolar nonketotic hyperglycemia with diabetes mellitus type 2: Patient more alert today. Continue with Accu-Cheks and sliding scale. No need for Lantus at this time. Nephrology reports patient had been on Lantus but this was discontinued due to hypoglycemia. Patient was switched over to glipizide. Will monitor off medication at this time. Dialysis planned for tomorrow. Likely home tomorrow if stable.. End-stage renal disease on hemodialysis with pseudohyponatremia: Case discussed with nephrology. Patient to have dialysis tomorrow. Likely home discharge tomorrow if stable Hypertension: Restart home medication. Diarrhea: Will check stool cultures. Will monitor and evaluate closely. Positive COVID-19 asymptomatic: Continue with supplementation. No need for steroids. Noncompliance with follow-up: Patient last went to dialysis on Monday. Code Status: Full Code DVT prophylaxis: Heparin Advanced Care Planning-30 minutes: Home at discharge Time Spent Managing Pts Care (In Minutes): 55
[2021-04-23 08:05] LABS: Basophils % 0.8 % (0-1.3); Hematocrit 33.7 % (39.6-49.0); Lymphocytes % 12.3 % (15.3-44.8); RBC Red Blood Cell Count 3.61 M/uL (4.33-5.43)
[2021-04-23 08:27] LABS: Magnesium 2.3 mg/dL (1.8-2.4); Potassium 4.1 mmol/L (3.5-5.1); Thyroid Stimulating Hormone 1.1 uIU/mL (0.360-3.740)
[2021-04-23] MEDS: FAMOTIDINE 20 MG/2 ML VIAL IV SCH (09:00)
[2021-04-23] MEDS: HEPARIN 5000 UNIT/ML 1 ML VIAL SQ SCH ×2 (09:00→21:00)
[2021-04-23] MEDS: AMLODIPINE 2.5 MG TAB PO SCH (09:00)
[2021-04-23] MEDS ORDERED: FAMOTIDINE 20 MG/2 ML VIAL IV ONE (09:16)
[2021-04-23] MEDS ORDERED: HEPARIN 5000 UNIT/ML 1 ML VIAL ONE (09:16)
[2021-04-23] MEDS ORDERED: AMLODIPINE 5 MG TAB ONE (09:16)
[2021-04-23] MEDS ORDERED: carvediloL 6.25 MG TAB ONE (09:16)
[2021-04-23] MEDS: carvediloL 12.5 MG TAB PO SCH ×2 (09:29→17:42)
[2021-04-23] MEDS ORDERED: ACETAMINOPHEN 500 MG TAB ONE (09:49)
--- NOTE | 2021-04-23 10:53 | EKG ---
Test Date: 2021-04-22 Test Time: 07:37:18 Hearing Therapy Director: ANICETO MEASUREMENT RESULTS: Intervals: Rate: 103 WV: 146 QRSD: 88 QT: 344 QTc: 450 Fitzpatrick: P: 74 WV: 146 QRS: 77 T: 71 INTERPRETIVE STATEMENTS: Sinus tachycardia Otherwise normal ECG Compared to ECG 03/02/2021 17:02:10 Sinus rhythm no longer present Electronically Signed On 04-23-21 10:48:39 CDT by Marino Parson
[2021-04-23] MEDS ORDERED: D50W 25 GM/50 ML SYRINGE IV PRN (11:58)
[2021-04-23] MEDS ORDERED: GLUCAGON 1 MG/VIAL IM PRN (11:58)
[2021-04-23] MEDS: INSULIN -REGULAR HUMAN 50 UNIT/0.5 ML ML SQ SCH ×2 (16:30→21:00)
[2021-04-23] MEDS: ASCORBIC ACID 500 MG TABLET PO SCH (21:00)
[2021-04-23 23:30] VITALS: O2SAT 98
[2021-04-24 05:17] LABS: Basophils % 1.4 % (0-1.3); Hematocrit 36.2 % (39.6-49.0); Lymphocytes % 17.6 % (15.3-44.8); MPV 8.1 fL (7.6-11.3); RBC Red Blood Cell Count 3.84 M/uL (4.33-5.43)
[2021-04-24 05:41] LABS: Magnesium 2.4 mg/dL (1.8-2.4); Phosphorus 5.5 mg/dL (2.5-4.9); Potassium 4.8 mmol/L (3.5-5.1)
--- NOTE | 2021-04-24 05:54 | P.PN ---
Subjective Date of Service: 04/24/21 Primary Care Provider: unknown; Nephrology-Dr. Shah Chief Complaint: Altered mental status Subjective: Improving, Doing well Physical Examination - Vital Signs Temperature: 98.5 F Blood Pressure: 181/95 Pulse: 87 Respirations: 14 Pulse Ox (%): 100 Assessment & Plan Discharge Plan: Home Physician Review Additional Text: COVID: Positive with history of Covid in December CT head: COMPARISON: Head Brain Wo Cont dated 03/09/2020; Facial Bones W/ Mpr dated 03/09/2020 TECHNIQUE: All CT scans are performed using dose optimization technique as appropriate and may include automated exposure control or mA/KV adjustment according to patient size. FINDINGS: No intracranial hemorrhage, hydrocephalus or extra-axial fluid collection.Mild brain atrophy is present.No areas of brain edema or evidence of midline shift. Right mastoid effusion is present. The calvarium is intact. Calcified right lobe, chronic. IMPRESSION: No acute intracranial abnormality. Right mastoid effusion. Chest x-ray: COMPARISON: Chest Single View dated 01/16/2021; Chest Single View dated 01/14/2021; Chest Single View dated 01/07/2021; Chest Single View dated 03/09/2020 FINDINGS: Portable technique limits examination quality. Mild to moderate bilateral pulmonary opacities are present likely representing viral infection. The heart is normal in size. No displaced fractures. Physical Exam: GENERAL: Dry mucous membranes noted. Patient more alert today. VITAL SIGNS: Reviewed HEENT: Mild swelling to the eyes bilateral.. NECK: Supple. No carotid bruits. No lymphadenopathy or thyromegaly. LUNGS: Clear to auscultation. No crackles or wheezes are heard. Patient on room air. HEART: Regular rate and rhythm, no appreciable gallops, rubs, murmurs or extra heart sounds ABDOMEN: Soft, nontender, and nondistended. Positive bowel sounds. No hepatosplenomegaly was noted. EXTREMITIES: Without any cyanosis, clubbing, rash, lesions or peripheral edema. NEUROLOGIC: The patient is oriented to person, place and time. Strength and sensation are grossly intact. Face is symmetric. SKIN: Normal color, turgor and temperature. No ulcerations or rashes noted. Impression: Altered mental status secondary to metabolic encephalopathy likely hyperosmolar nonketotic hyperglycemia with diabetes mellitus type 2 End-stage renal disease on hemodialysis with pseudohyponatremia Hypertension Diarrhea Positive COVID-19 asymptomatic Noncompliance with follow-up Plan: Altered mental status secondary to metabolic encephalopathy likely hyperosmolar nonketotic hyperglycemia with diabetes mellitus type 2: Back to baseline. Continue with sliding scale. Case discussed with nephrology. Patient can be discharged home. End-stage renal disease on hemodialysis with pseudohyponatremia: Case discussed with nephrology. Can be discharged after dialysis. Hypertension: Medications adjusted Diarrhea: Cultures negative. Will monitor and evaluate closely. Positive COVID-19 asymptomatic: Continue with supplementation. No need for steroids. Noncompliance with follow-up: Patient last went to dialysis on Monday. Code Status: Full Code DVT prophylaxis: Heparin Advanced Care Planning-30 minutes: Home at discharge Time Spent Managing Pts Care (In Minutes): 55
[2021-04-24] MEDS: carvediloL 12.5 MG TAB PO SCH (06:14)
[2021-04-24] MEDS: HYDRALAZINE HCL 20 MG/ML VIAL IV PRN (06:19)
--- NOTE | 2021-04-24 06:28 | P.PN ---
Subjective Date of Service: 04/24/21 Primary Care Provider: unknown; Nephrology-Dr. Shah Chief Complaint: Altered mental status He received HD today. Physical Examination - Vital Signs Temperature: 98.5 F Blood Pressure: 200/87 Pulse: 84 Respirations: 17 Pulse Ox (%): 100 - Physical Exam General: In no apparent distress HEENT: Atraumatic, Normocephalic Neck: Supple, JVD not distended Respiratory: Diminished Cardiovascular: No rubs, No murmurs Gastrointestinal: Soft and benign, Non-distended Musculoskeletal: No clubbing Integumentary: No warmth Neurological: Normal tone Lymphatics: No axilla or inguinal lymphadenopathy Urinary: Other (no bladder distention) External genitalia: Deferred Rectal: Deferred Assessment And Plan - Plan # ESRD on HD TTS at [facility] HD received today HD access: L arm AVG EDW: 56.5 kgs Renal vit po daily Renal + DM diet Monitor renal panel # Facial edema 2/2 central vein stenosis Monitor # DM c/b HONK DKA resolved Mngt per primary team # COVID infection Mngt per primary team # Acute encephalopathy 2/2 HONK Monitor # Hyperkalemia resolved Monitor # Hyponatremia resolved Monitor # Hypertension BP above goal Increase amlodipine to 5 g by mouth daily Continue Coreg 12.5 g by mouth twice a day # Anemia Monitor H/H # Renal osteodystrophy Monitor Ca & Phos # Dispo Ok to dc today from renal standpoint
[2021-04-24 07:35] LABS: C-Reactive Protein 17.5 mg/L (<3.00); Ferritin 784.9 ng/mL (26-388)
[2021-04-24] MEDS ORDERED: ZINC SULFATE 220 MG CAP PO SCH (09:00)
[2021-04-24] MEDS ORDERED: THIAMINE HCL 100 MG TABLET PO SCH (09:00)
[2021-04-24] MEDS: INSULIN -REGULAR HUMAN 50 UNIT/0.5 ML ML SQ SCH ×2 (09:06→11:34)
[2021-04-24] MEDS: HEPARIN 5000 UNIT/ML 1 ML VIAL SQ SCH (09:12)
[2021-04-24] MEDS: AMLODIPINE 2.5 MG TAB PO SCH (09:12)
[2021-04-24] MEDS: FAMOTIDINE 20 MG/2 ML VIAL IV SCH (09:13)
[2021-04-24] MEDS: ASCORBIC ACID 500 MG TABLET PO SCH ×2 (09:13→14:38)
[2021-04-24 11:55] LABS: C.diff Antigen/Toxin Ag neg : Tox neg (NEG : NEG)
[2021-04-24 13:08] VITALS: TEMP 98.5
--- NOTE | 2021-04-24 13:13 | P.DS ---
Admission Date: 04/22/21 Discharge Date: 04/24/21 Primary Care Provider: unknown; Nephrology-Dr. Shah Disposition: ROUTINE DISCHARGE Discharge Condition: GOOD Reason for Admission: Altered mental status Consultations: Nephrology-Dr. Shah/Dr. Starks Procedures: COVID: Positive with history of Covid in December CT head: COMPARISON: Head Brain Wo Cont dated 03/09/2020; Facial Bones W/ Mpr dated 03/09/2020 TECHNIQUE: All CT scans are performed using dose optimization technique as appropriate and may include automated exposure control or mA/KV adjustment according to patient size. FINDINGS: No intracranial hemorrhage, hydrocephalus or extra-axial fluid collection.Mild brain atrophy is present.No areas of brain edema or evidence of midline shift. Right mastoid effusion is present. The calvarium is intact. Calcified right lobe, chronic. IMPRESSION: No acute intracranial abnormality. Right mastoid effusion. Chest x-ray: COMPARISON: Chest Single View dated 01/16/2021; Chest Single View dated 01/14/2021; Chest Single View dated 01/07/2021; Chest Single View dated 03/09/2020 FINDINGS: Portable technique limits examination quality. Mild to moderate bilateral pulmonary opacities are present likely representing viral infection. The heart is normal in size. No displaced fractures. Medical problem list: Altered mental status secondary to metabolic encephalopathy likely hyperosmolar nonketotic hyperglycemia with diabetes mellitus type 2 End-stage renal disease on hemodialysis with pseudohyponatremia Hypertension Diarrhea Positive COVID-19 asymptomatic Noncompliance with follow-up Brief History of Present Illness: 45-year-old male with history of diabetes mellitus type 2, hypertension, end-stage renal disease, poor compliance. Patient presented with confusion. Most of history came from the ER physician and parks and recreation manager. Nephrology reports patient went to dialysis on Monday. Patient with history of hyperosmolar nonketotic state. Patient has a history of noncompliance. He was getting dialysis as needed then once he got insurance this was switched to regular dialysis. Patient was recently taken off insulin due to hypoglycemia. He was placed on glipizide as reported by nephrology. Patient with confusion. Not able to give adequate history. He does report some diarrhea. Otherwise patient stable patient was to be transferred due to lack of ICU beds. No availability noted. On lab blood sugars greater than 500. White count 6.8, hemoglobin 11.6. Platelet count 147. Sodium 120, potassium 5.9. BUN of 43, creatinine 6.24 with a GFR of 10. Covid test pending. Patient with history of Covid in December. Chest x-ray pending. CT head pending. Patient admitted for treatment. Patient was started on insulin drip. IV fluids to be initiated. Hospital Course: Patient presented with altered mental status secondary to metabolic encephalopathy related to hyperosmolar nonketotic hyperglycemia with history of diabetes mellitus type 2. Patient was admitted for further evaluation. Patient initially placed on insulin drip. This was transitioned to sliding scale. Patient has done well. Patient now back to baseline. Hemoglobin A1c 9.7. Patient previously on basal insulin but this led to hypoglycemia. Patient was taking glipizide at home. At discharge will recommend to continue sliding scale. At discharge recommend to maintain blood sugar less than 140 fasting and less than 200 after meals. Patient will continue with mild sliding scale. This will be provided. If his blood sugars remain above 200 patient may require lalito tional medication. This can be done with the help of his parks and recreation manager or PCP. Recommend to recheck hemoglobin A1c every 3 months to monitor his progress. Recommend follow-up with PCP within 1 week to further monitor and address. He is to bring his list of blood sugars to further address with his PCP and determine what will require to get it better controlled. Education on hyperglycemia and hypoglycemia will be provided. Patient with end-stage renal disease on hemodialysis. Patient has pseudohyponatremia related to hyperosmolar nonketotic state. This resolved. Patient did receive dialysis during the course of his stay. Nephrology was consulted. At discharge patient will continue with his current medications of Renvela 800 mg 3 times a day. Patient will continue with Judy-Dionne once daily. Patient will continue with dialysis every Monday, and Monday. Compliance with dialysis will need to be monitored. Future medications will need to be renally dosed. Recommend follow-up with nephrology as directed. Patient with hypertension. Medications were adjusted during the course of his stay. At discharge patient will continue with carvedilol 12.5 mg 1 pill twice daily and Norvasc 5 mg daily. Recommend to maintain blood pressure less than 130/80. Further adjustment can be done by nephrology or his PCP. Patient with diarrhea. This improved. C. difficile culture negative. Patient will continue with Imodium as needed. Patient may also benefit with lactobacillus [id number] 2-3 times a day. This can be further monitored and addressed by nephrology. Patient with positive COVID-19. Patient asymptomatic. Patient on room air. Patient previously with COVID-19 in December. No need for steroids at this time. At discharge patient will continue with vitamin C 500 mg 3 times a day, zinc 200 mg daily, and thiamine 100 mg daily. Patient will continue with CDC guidelines on COVID-19. Recommend to continue facemask use, handwashing, and social distancing. Vital Signs/Physical Exam: Temp Pulse Resp BP Pulse Ox 98.5 F 87 14 181/95 H 100 04/24/21 13:08 04/24/21 13:08 04/24/21 13:08 04/24/21 13:08 04/24/21 13:08 General: Alert, In no apparent distress, Oriented x3, Cooperative HEENT: Atraumatic Neck: Supple Respiratory: Clear to auscultation bilaterally, Normal air movement, Other (Currently on room air) Cardiovascular: Normal pulses, Regular rate/rhythm Gastrointestinal: Normal bowel sounds, No tenderness, No masses, No rebound, No guarding Musculoskeletal: No erythema, No tenderness, No warmth Integumentary: No tenderness/swelling Neurological: Normal speech, Normal strength at 5/5 x4 extr, Normal tone, Normal affect Laboratory Data at Discharge: WBC 5.90 K/uL (4.3-10.9) D 04/24/21 04:44 Hgb 12.1 g/dL (13.6-17.9) L 04/24/21 04:44 Hct 36.2 % (39.6-49.0) L 04/24/21 04:44 Plt Count 169 K/uL (152-406) 04/24/21 04:44 PT 11.0 SECONDS (9.5-12.5) 04/22/21 07:00 INR 0.96 04/22/21 07:00 Sodium 136 mmol/L (136-145) 04/24/21 04:44 Potassium 4.8 mmol/L (3.5-5.1) 04/24/21 04:44 BUN 29 mg/dL (7-18) H 04/24/21 04:44 Creatinine 5.90 mg/dL (0.55-1.3) H* D 04/24/21 04:44 Glucose 274 mg/dL (74-106) H 04/24/21 04:44 Phosphorus Cancelled 04/24/21 05:00 Magnesium 2.4 mg/dL (1.8-2.4) 04/24/21 04:44 Total Bilirubin 0.5 mg/dL (0.2-1.0) 04/22/21 07:00 AST 54 U/L (15-37) H 04/22/21 07:00 ALT 56 U/L (12-78) 04/22/21 07:00 Alkaline Phosphatase 204 U/L (45-117) H 04/22/21 07:00 Triglycerides 113 mg/dL (<150) 04/23/21 07:39 Cholesterol 143 mg/dL (<200) 04/23/21 07:39 HDL Cholesterol 60 mg/dL (40-60) 04/23/21 07:39 Cholesterol/HDL Ratio 2.38 04/23/21 07:39 Home Medications: Amlodipine Besylate [Norvasc] 5 mg PO DAILY #30 tablet 04/24/21 Ascorbic Acid [Vitamin C*] 500 mg PO TID #90 tablet 04/24/21 Calcium Carbonate [Tums Regular*] 500 mg PO AC 04/24/21 Folic Acid/Vit B Complex and C [Judy-Dionne Tablet] 0.8 mg PO DAILY 04/24/21 Insulin Aspart [Novolog Flexpen] See Protocol SQ SEECOM #1 box 04/24/21 Loperamide [Imodium*] 2 mg PO Q4HP PRN 04/24/21 Psyllium Husk (with Sugar) [Metamucil Packet] 1 packet PO TID PRN 04/24/21 Sevelamer Carbonate [Renvela*] 800 mg PO TIDWM 04/24/21 Thiamine HCl [Vitamin B-1*] 100 mg PO DAILY #30 tablet 04/24/21 Zinc Sulfate [Zinc Sulfate*] 220 mg PO DAILY #30 cap 04/24/21 carvediloL [Coreg*] 12.5 mg PO BID 04/24/21 New Medications: Amlodipine Besylate [Norvasc] 5 mg PO DAILY #30 tablet Insulin Aspart [Novolog Flexpen] See Protocol SQ SEECOM #1 box Thiamine HCl [Vitamin B-1*] 100 mg PO DAILY #30 tablet Ascorbic Acid [Vitamin C*] 500 mg PO TID #90 tablet Zinc Sulfate [Zinc Sulfate*] 220 mg PO DAILY #30 cap Physician Discharge Instructions: Patient presented with altered mental status secondary to metabolic encephalopathy related to hyperosmolar nonketotic hyperglycemia with history of diabetes mellitus type 2. Patient was admitted for further evaluation. Patient initially placed on insulin drip. This was transitioned to sliding scale. Patient has done well. Patient now back to baseline. Hemoglobin A1c 9.7. Patient previously on basal insulin but this led to hypoglycemia. Patient was taking glipizide at home. At discharge will recommend to continue sliding scale. At discharge recommend to maintain blood sugar less than 140 fasting and less than 200 after meals. Patient will continue with mild sliding scale. This will be provided. If his blood sugars remain above 200 patient may require additional medication. This can be done with the help of his parks and recreation manager or PCP. Recommend to recheck hemoglobin A1c every 3 months to monitor his progress. Recommend follow-up with PCP within 1 week to further monitor and address. He is to bring his list of blood sugars to further address with his PCP and determine what will require to get it better controlled. Education on h yperglycemia and hypoglycemia will be provided. Patient with end-stage renal disease on hemodialysis. Patient has pseudohyponatremia related to hyperosmolar nonketotic state. This resolved. Patient did receive dialysis during the course of his stay. Nephrology was consulted. At discharge patient will continue with his current medications of Renvela 800 mg 3 times a day. Patient will continue with Judy-Dionne once daily. Patient will continue with dialysis every Monday, and Monday. Compliance with dialysis will need to be monitored. Future medications will need to be renally dosed. Recommend follow-up with nephrology as directed. Patient with hypertension. Medications were adjusted during the course of his stay. At discharge patient will continue with carvedilol 12.5 mg 1 pill twice daily and Norvasc 5 mg daily. Recommend to maintain blood pressure less than 130/80. Further adjustment can be done by nephrology or his PCP. Patient with diarrhea. This improved. C. difficile culture negative. Patient will continue with Imodium as needed. Patient may also benefit with lactobacillus [id number] 2-3 times a day. This can be further monitored and addressed by nephrology. Patient with positive COVID-19. Patient asymptomatic. Patient on room air. Patient previously with COVID-19 in December. No need for steroids at this time. At discharge patient will continue with vitamin C 500 mg 3 times a day, zinc 200 mg daily, and thiamine 100 mg daily. Patient will continue with CDC guidelines on COVID-19. Recommend to continue facemask use, handwashing, and social distancing. Diet: ADA Activity: Fall precautions Followup: NONE,NONE [Primary Care Provider] - Time spent managing pt's care (in minutes): 55
[2021-04-24 22:03] VITALS: BP 200/87
[2021-04-25] MEDS ORDERED: AMLODIPINE 2.5 MG TAB PO SCH (09:00)
== END 2021-04-24 16:10 | disposition home or self-care (01) | DRG 637 ==
LOC: ER 06:49 → ERHOLD 10:15 → 3RD-ICU 04-23 14:44
PROVIDERS: ADMIT Family Medicine; ATTEND Family Medicine
PROC: 5A1D70Z Performance of Urinary Filtration, Intermittent, Less than 6 Hours Per Day (ICD-10-PCS; principal; 2021-04-22)
DX: E11.00 Type 2 diabetes mellitus with hyperosmolarity without nonketotic hyperglycemic-hyperosmolar coma (NKHHC) (principal); N18.6 End stage renal disease; G93.41 Metabolic encephalopathy; U07.1 COVID-19; I12.0 Hypertensive chronic kidney disease with stage 5 chronic kidney disease or end stage renal disease; E87.1 Hypo-osmolality and hyponatremia; E11.10 Type 2 diabetes mellitus with ketoacidosis without coma; E11.22 Type 2 diabetes mellitus with diabetic chronic kidney disease; D63.1 Anemia in chronic kidney disease; K21.9 Gastro-esophageal reflux disease without esophagitis; E87.5 Hyperkalemia; N25.0 Renal osteodystrophy; E78.5 Hyperlipidemia, unspecified; I16.0 Hypertensive urgency; R19.7 Diarrhea, unspecified; Z88.8 Allergy status to other drugs, medicaments and biological substances; Z99.2 Dependence on renal dialysis; Z88.0 Allergy status to penicillin; Z91.19 Patient's noncompliance with other medical treatment and regimen; Z79.01 Long term (current) use of anticoagulants; Z79.52 Long term (current) use of systemic steroids; Z79.899 Other long term (current) drug therapy; Z86.16 Personal history of COVID-19; Z79.4 Long term (current) use of insulin
CPT/HCPCS: 36415; 70450; 71045; 80048; 80061; 80076; 82140; 82728; 82805; 82947; 83036; 83735; 83880; 83930; 84100; 84439; 84443; 84484; 85025; 85610; 86140; 87040; 87045; 87046; 87077; 87177; 87186; 87205; 87209; 87324; 87449; 90935; 93005; 96365; 96366; 96375; 99285; J0360; J1644; J7040; U0003

== ENCOUNTER 2021-05-15 03:18 | Inpatient (IN) | payer BC ==
--- OUTSIDE RECORDS SUMMARY | 2021-05-15 03:23 | XMS REPORT | Continuity of Care Document ---
:1975 Author Organization [facility] t Address [address] [place] [address] Care Team Providers Name Role Phone Sharpless Primary Care Physician Unavailable Doctor Unassigned, [place] Attending Clinician Unavailable Guero Torres MD Attending Clinician Scot DALTON Attending Clinician Singer RICHARD Attending Clinician Rolando DALTON Attending Clinician Denis DALTON Attending Clinician Keith DALTON Attending Clinician Paulo Martin DO Attending Clinician Tasneem MORENO Attending Clinician Amandeep Jara MD Attending Clinician [phone] LUCR[place] RENEE Attending Clinician Unavailable Scot DALTON Admitting Clinician Rolando DALTON Admitting Clinician Keith DALTON Admitting Clinician Tasneem MORENO Admitting Clinician Amandeep Jara MD Admitting Clinician [phone] LUCRECIA RENEE Admitting Clinician Unavailable Problems [...] Allergy 3-17 [facility] - 00:00: Medical 00 [place] Social History Social Habit Start Date Stop Date Quantity Comments Source Sex Assigned At [facility] Smoking Status Start Date Stop Date Source Never sm[facility] Medications Ordered Filled Start Stop Current Ordering Indication Dosage Frequency Signature Comments Components Source Medication Medication Date Date Medication? Clinician (SIG) Name Name amLODIPine Yes 10mg QD Take [address] (NORVASC) 3-23 by mouth [facility] - 10 MG 19:11: daily. Medical tablet [address] [place] [address] aspirin 81 Yes 81mg QD Take [address] MG chewable 3-23 by mouth [facility] s - tablet 19:11: daily. [address] calcium Yes 1{tbl} [id number] Take [address] [facility] carbonate 3-23 [id number] tablet by [facility] - (TUMS) 500 19:11: [...] / Time Performed Performing Clinician Valeriano butterfield [id number] 2021-01-23 00:00:00 ENCPL 6F6Z16W 2021-01-23 00:00:00 ENCPL 0V6L32Y 2021-01-23 00:00:00 ENCPL 2I4N27R 2021-01-23 00:00:00 ENCPL 8S7H71H 2021-01-23 00:00:00 ENCPL 7X6L54Q 2021-01-23 00:00:00 ENCPL 0D5Q83G 2021-01-23 00:00:00 ENCPL 4A3G18M 2021-01-23 00:00:00 ENCPL 3C2J64C 2021-01-23 00:00:00 ENCPL 1R0R77V 2021-01-23 00:00:00 ENCPL 7Z5U84Z 2021-01-23 00:00:00 ENCPL 0S3W09Z 2021-01-23 00:00:00 ENCPL 9R9H63L 2021-01-23 00:00:00 ENCPL 1W8G68U 2021-01-23 00:00:00 ENCPL 5M0I18N 2021-01-23 00:00:00 ENCPL 1F5F05F 2021-01-23 00:00:00 ENCPL 0L7D95W 2021-01-23 00:00:00 ENCPL 1A0B48I 2021-01-23 00:00:00 ENCPL 9P9N19Z 2021-01-23 00:00:00 ENCPL 4Y5U70E 2021-01-23 00:00:00 ENCPL 7H0D24T 2021-01-23 00:00:00 ENCPL Encounters Start End Encounter Admission Attending Care Care Encounter Source Date/Time Date/Time Type Type Clinicians Facility Department ID 2020-10-08 2020-10-08 Orders Doctor ALVAREZ 1.2.840.114 [id number] 00:00:00 00:00:00 Only [facility]686 [id number] [id number] 2019-10-02 2019-10-02 Orders Doctor ALVAREZ 1.2.840.114 [id number] 00:00:00 00:00:00 Only UnassignedTISHA [facility]13.10 [facility] 4.2.7.2.686 [id number] [id number] 2019-06-05 2019-06-06 Emergency Mariajose Torresval Jack [facility] 1.2.840 .114 [id number] 07:59:43 14:59:00 Mak Ellison 350.1.13.10 [place] 4.2.7.2.686 [place] [address] [id number] [id number] 2019-06-01 2019-06-01 Emergency Luca Jackson [facility] 1.2.840. 114 [id number] 06:56:22 17:52:00 Jesus Marshall [id number] [place] 4.2.7.2.686 [place] [address] [id number] [facility] 2019-05-28 2019-05-28 Emergency DenisAndrey [facility] 1.2.840. 114 [id number] 07:49:46 20:40:00 Jesus Marshall [id number] [place] 4.2.7.2.686 [place] [address] [id number] [facility] 2019-05-24 2019-05-24 Emergency Denis Andrey [facility] 1.2.840. 114 [id number] 07:36:09 16:15:00 James Parker 350.1.13.10 [place] 4.2.7.2.686 [place] [address] [id number] [facility] 2019-05-20 2019-05-20 Emergency Flower Martin [facility] 1.2.8 40.114 [id number] 07:34:17 19:50:00 James Parker 350.1.13.10 [place] 4.2.7.2.6 [place] [address] [id number] [facility] 2019-05-15 2019-05-15 Emergency Luca Jackson [facility] 1.2.840. 114 [id number] 07:17:11 18:48:00 Jesus Marshall 350.1.13.10 [place] 4.2.7.2.686 [place] [address] [id number] 2019-05-09 2019-05-11 Emergency Nancy Torres [facility] 1.2.840 .114 [id number] 07:23:22 15:03:00 Jesus Marshall 350.1.13.10 [place] 4.2.7.2.686 [place] [address] [id number] 2019-05-07 2019-05-07 Emergency Denis [facility] 1.2.166.722 [id number] 06:36:08 08:19:00 Andrey Castrejon 350.1.13.10 [place] 4.2.7.2.686 [place] [address] [id number] [id number] 2019-05-03 2019-05-03 Emergency Andrey Barrios [facility] 1.2.840. 114 [id number] 07:04:51 19:40:00 Tasneem Caleb Baden 350.1.13.10 [place] 4.2.7.2.686 [place] [address] [id number] [id number] 2019-04-29 2019-04-29 Emergency Nancy Torres [facility] 1.2.840 .114 [id number] 06:03:54 16:18:00 EstefaniBebejackelyn Osagbaromegan Baden 350.1.13.10 [place] 4.2.7.2.686 [place] [address] [id number] 2019-04-24 2019-04-24 Emergency Flower Martin MIMB 1.2.8 40.114 [id number] 07:32:53 17:15:00 Mak Ellison 350.1.13.10 [place] 4.2.7.2.686 [place] [address] [id number] 2019-04-20 2019-04-20 Emergency Andrey Barrios [facility] 1.2.840. 114 [id number] 07:35:56 21:13:00 Mak Ellison 350.1.13.10 [place] 4.2.7.2.686 [place] [address] [id number] 2019-04-15 2019-04-15 Emergency Andrey Barrios [facility] 1.2.840. 114 [id number] 06:12:02 17:50:00 TasneemCaleb 350.1.13.10 [place] 4.2.7.2.686 [place] [address] [id number] [id number] Results Test Description Test Time Test Comments Results Result Comments Source BLOOD CULTURE 2016-12-09 11:00:00 Test Item Value Reference Range Interpretation Comme nts CULTURE (BEAKER) (test code = 1095) No growth in 5 days BLOOD [id number] 11:00:00 Test Item Value Reference Range Interpretation Comments CULTURE (BEAKER) (test No growth in 5 days code = 1095) ISLET CELL AB [id number] 09:29:00 Test Item Value Reference Range Interpretation Comments ISLET CELL AB See individual AUTOVERIFICATION (test panel test results. code = 2556) POCT-GLUCOSE [id number] 17:52:00 Test Item Value Reference Range Interpretation Comments POC-GLUCOSE METER 360 mg/dL 70-[address] [facility] ([facility]) (test code = [facility] Pau [facility] 1538) [address] CLOSTRIDIUM DIFFICILE TOXIN [id number] 14:10:00 Test Item Value Reference Range Interpretation Comments CLOSTRIDIUM DIFFICILE TOXIN, PCR Not Detected Not Detected ([facility]) (test code = 1525) This qualitative [...] of a positive result is not recommended.POCT-GLUCOSE [id number] 13:02:00 Test Item Value Reference Range Interpretation Comments POC-GLUCOSE METER 265 mg/dL 70-[address] [facility] ([facility]) (test code = [facility] [place] [facility] 1538) [address] POCT-GLUCOSE [id number] 07:13:00 Test Item Value Reference Range Interpretation Comments POC-GLUCOSE METER 70 mg/dL 70-[address] [facility] ([facility]) (test code = [facility] [address] 1538) VANCOMYCIN LEVEL, [id number] 06:54:00 Test Item Value Reference Range Interpretation Comments VANCOMYCIN RANDOM ([facility]) (test 15.2 ug/mL code = 523) Reference Range: No NormalsBASIC METABOLIC [id number] 06:41:00 Test Item Value Reference Range Interpretation [...] NOT APPLICABLE FOR DIALYSIS PATIEN TS. POCT-GLUCOSE [id number] 06:40:00 Test Item Value Reference Range Interpretation Comments POC-GLUCOSE METER 44 mg/dL 70-110 L Notified R Manny DALTON/TESTED AT (BEAKER) (test code = [facility] [address] [place] 1538) [place] [address] 0 POCT-GLUCOSE [id number] 06:36:00 Test Item Value Reference Range Interpretation Comments POC-GLUCOSE METER 54 mg/dL 70-110 L Notified R Manny DALTON/TESTED AT (BEAKER) (test code = [facility] [address] [place] 1538) [place] [id number] 0 BASIC METABOLIC [id number] 06:35:00 Test Item Value Reference Range Interpretation [...] NOT APPLICABLE FOR DIALYSIS PATIEN TS. POCT-GLUCOSE [id number] 21:14:00 Test Item Value Reference Range Interpretation Comments POC-GLUCOSE METER 396 mg/dL 70-110 H Notified R N MD/TESTED ([facility]) (test code = AT [place] 612418) [facility] 770 0 POCT-GLUCOSE [id number] 18:02:00 Test Item Value Reference Range Interpretation Comments POC-GLUCOSE METER 363 mg/dL 70-110 H Notified R N MD/TESTED ([facility]) (test code = AT [place] 612418) [facility] 7703 0 BLOOD [id number] 18:00:00 Test Item Value Reference Range Interpretation Comments CULTURE (BEAKER) (test No growth in 5 days code = 1095) BLOOD [id number] 18:00:00 Test Item Value Reference Range Interpretation Comments CULTURE (BEAKER) (test No growth in 5 days code = 1095) POCT-GLUCOSE [id number] 13:08:00 Test Item Value Reference Range Interpretation Comments POC-GLUCOSE METER 188 mg/dL 70-[address] [facility] ([facility]) (test code = [place] [address]) [address] POCT-GLUCOSE [id number] 11:42:00 Test Item Value Reference Range Interpretation Comments POC-GLUCOSE METER 194 mg/dL 70-[address] [facility] ([facility]) (test code = MA[place]ID [place] [address]) [address] VANCOMYCIN LEVEL, [id number] 09:58:00 Test Item Value Reference Range Interpretation Comments VANCOMYCIN RANDOM (BEAKER) (test 12.9 ug/mL code = 523) Reference Range: No NormalsTo be drawn BEFORE dialysis in the dialysis unit. Thank youPOCT-GLUCOSE [id number] 08:52:00 Test Item Value Reference Range Interpretation Comments POC-GLUCOSE METER 272 mg/dL 70-[address] [facility] ([facility]) (test code = HAL [place] 1538) [address] BASIC METABOLIC [id number] 05:09:00 Test Item Value Reference Range Interpretation [...] NOT APPLICABLE FOR DIALYSIS PATIEN TS. POCT-GLUCOSE [id number] 21:32:00 Test Item Value Reference Range Interpretation Comments POC-GLUCOSE METER 388 mg/dL 70-110 H TESTED AT [place] [address] ([facility]) (test code = HAL Mia [facility] 1538) [address] POCT-GLUCOSE [id number] 18:31:00 Test Item Value Reference Range Interpretation Comments POC-GLUCOSE METER 247 mg/dL 70-110 H TESTED AT [place] [address] (BEAKER) (test code = HAL Mai [facility] 1538) [address] POCT-GLUCOSE [id number] 10:58:00 Test Item Value Reference Range Interpretation Comments POC-GLUCOSE METER 213 mg/dL 70-[address] [facility] (BEAKER) (test code = [place] [facility] 1538) [address] CBC W/PLT COUNT & AUTO [id number] 07:02:00 Test Item Value Reference Range Interpretation [...] 0.00-0.20 (test code = 417) 0.00BASIC METABOLIC [id number] 06:25:00 Test Item Value Reference Range Interpretation [...] S NOT APPLICABLE FOR DIALYSIS PATIEN TS. [id number] 06:24:00 Test Item Value Reference Range Interpretation Comments PHOSPHORUS (BEAKER) (test code = 3.8 mg/dL 2.3-4.7 604) [id number] 06:24:00 Test Item Value Reference Range Interpretation Comments MAGNESIUM (BEAKER) (test code = 2.2 mg/dL 1.6-2.6 627) POCT-GLUCOSE [id number] 21:55:00 Test Item Value Reference Range Interpretation Comments POC-GLUCOSE METER 270 mg/dL 70-110 H TESTED AT [place] [address] (BEAKER) (test code = [facility] 1538) [address] POCT-GLUCOSE [id number] 18:12:00 Test Item Value Reference Range Interpretation Comments POC-GLUCOSE METER 124 mg/dL 70-110 H TESTED AT [place] [address] ([facility]) (test code = [facility] 1538) [address] POCT-GLUCOSE [id number] 16:27:00 Test Item Value Reference Range Interpretation Comments POC-GLUCOSE METER 135 mg/dL 70-110 H TESTED AT [place] [address] ([facility]) (test code = [facility] 1538) [address] POCT-GLUCOSE [id number] 14:10:00 Test Item Value Reference Range Interpretation Comments POC-GLUCOSE METER 219 mg/dL 70-110 H TESTED AT [place] [address] ([facility]) (test code = [facility] 1538) [address] POCT-GLUCOSE [id number] 12:01:00 Test Item Value Reference Range Interpretation Comments POC-GLUCOSE METER 162 mg/dL 70-110 H TESTED AT [place] [address] ([facility]) (test code = [facility] 1538) [address] POCT-GLUCOSE [id number] 09:51:00 Test Item Value Reference Range Interpretation Comments POC-GLUCOSE METER 220 mg/dL 70-110 H TESTED AT [place] [address] ([facility]) (test code = [facility] 1538) [address]51 POCT-GLUCOSE [id number] 07:48:00 Test Item Value Reference Range Interpretation Comments POC-GLUCOSE METER 151 mg/dL 70-110 H TESTED AT [place] [address] ([facility]) (test code = [facility] 1538) [address] BASIC METABOLIC [id number] 07:36:00 Test Item Value Reference Range Interpretation [...] NOT APPLICABLE FOR DIALYSIS PATIEN TS. POCT-GLUCOSE [id number] 07:06:00 Test Item Value Reference Range Interpretation Comments POC-GLUCOSE METER 98 mg/dL 70-110 TESTED AT [place] [address] ([facility]) (test code = HAL [place] [facility] [address] 1538) POCT-GLUCOSE [id number] 06:27:00 Test Item Value Reference Range Interpretation Comments POC-GLUCOSE METER 63 mg/dL 70-110 L TESTED AT [place] [address] ([facility]) (test code = [facility] Mai [facility] [address] 1538) VANCOMYCIN LEVEL, [id number] 04:31:00 Test Item Value Reference Range Interpretation Comments VANCOMYCIN RANDOM (BEAKER) (test 20.8 ug/mL code = 523) Reference Range: No [id number] 04:20:00 Test Item Value Reference Range Interpretation Comments PHOSPHORUS (BEAKER) (test code = 5.4 mg/dL 2.3-4.7 H 604) [id number] 04:20:00 Test Item Value Reference Range Interpretation Comments MAGNESIUM (BEAKER) (test code = 2.1 mg/dL 1.6-2.6 627) POCT-GLUCOSE [id number] 04:16:00 Test Item Value Reference Range Interpretation Comments POC-GLUCOSE METER 99 mg/dL 70-110 TESTED AT [place] [address] ([facility]) (test code = HAL [place] [facility] [address] 1538) CBC W/PLT COUNT & AUTO [id number] 04:07:00 Test Item Value Reference Range Interpretation [...] L 0.00-0.20 (test code = 417) 0.00POCT-GLUCOSE [id number] 02:10:00 Test Item Value Reference Range Interpretation Comments POC-GLUCOSE METER 132 mg/dL 70-[address] [facility] (BEAKER) (test code = [facility] 1538) [address] SPUTUM CULTURE + GRAM [id number] 00:32:00 Test Item Value Reference Range Interpretation Comments CULTURE (BEAKER) 4+ Normal respiratory (test code = 1095) jenelle present GRAM STAIN RESULT 3+ White blood cells (BEAKER) (test code = seen 1123) GRAM STAIN RESULT 0-5 epithelial cells (BEAKER) (test code = 90654) GRAM STAIN RESULT 2+ gram negative rods (BEAKER) (test code = 49363) GRAM STAIN RESULT 3+ gram positive rods (BEAKER) (test code = 669232) GRAM STAIN RESULT 2+ gram positive cocci (BEAKER) (test code = in pairs and clusters 997741) POCT-GLUCOSE [id number] 00:15:00 Test Item Value Reference Range Interpretation Comments POC-GLUCOSE METER 193 mg/dL 70-110 H TESTED AT [place] [address] (BEAKER) (test code = [place] 1538) [address] POCT-GLUCOSE [id number] 22:22:00 Test Item Value Reference Range Interpretation Comments POC-GLUCOSE METER 170 mg/dL 70-110 H TESTED AT [place] [address] ([facility]) (test code = [facility] [place] 1538) [address] POCT-GLUCOSE [id number] 20:17:00 Test Item Value Reference Range Interpretation Comments POC-GLUCOSE METER 179 mg/dL 70-110 H TESTED AT [place] [address] ([facility]) (test code = [facility] [place] 1538) [address] BASIC METABOLIC [id number] 19:00:00 Test Item Value Reference Range Interpretation [...] NOT APPLICABLE FOR DIALYSIS PATIEN TS. POCT-GLUCOSE [id number] 18:27:00 Test Item Value Reference Range Interpretation Comments POC-GLUCOSE METER 150 mg/dL 70-110 H TESTED AT [place] [address] ([facility]) (test code = [place] [facility] 1538) [address] POCT-GLUCOSE [id number] 15:58:00 Test Item Value Reference Range Interpretation Comments POC-GLUCOSE METER 219 mg/dL 70-110 H TESTED AT [place] [address] ([facility]) (test code = [place] [facility] 1538) [address] POCT-GLUCOSE [id number] 14:26:00 Test Item Value Reference Range Interpretation Comments POC-GLUCOSE METER 212 mg/dL 70-110 H TESTED AT [place] [address] ([facility]) (test code = [place] [facility] 1538) [address] POCT-GLUCOSE [id number] 12:23:00 Test Item Value Reference Range Interpretation Comments POC-GLUCOSE METER 261 mg/dL 70-110 H TESTED AT [place] [address] ([facility]) (test code = HAL [place] [facility] 1538) [address] POCT-GLUCOSE [id number] 10:19:00 Test Item Value Reference Range Interpretation Comments POC-GLUCOSE METER 323 mg/dL 70-110 H TESTED AT [place] [address] ([facility]) (test code = [facility] Mai [facility] 1538) [address] POCT-GLUCOSE [id number] 08:24:00 Test Item Value Reference Range Interpretation Comments POC-GLUCOSE METER 235 mg/dL 70-110 H TESTED AT [place] [address] ([facility]) (test code = HAL Mai [facility] 1538) [address] POCT-GLUCOSE [id number] 07:10:00 Test Item Value Reference Range Interpretation Comments POC-GLUCOSE METER 244 mg/dL 70-110 H TESTED AT [place] [address] ([facility]) (test code = [facility] P[place] [facility] 1538) [address] POCT-GLUCOSE [id number] 06:15:00 Test Item Value Reference Range Interpretation Comments POC-GLUCOSE METER 249 mg/dL 70-110 H TESTED AT [place] [address] ([facility]) (test code = [facility] [place] [facility] 1538) [address] CBC W/PLT COUNT & AUTO [id number] 06:05:00 Test Item Value Reference Range Interpretation Comments WHITE BLOOD CELL COUNT ([facility]) 11.1 K/ L 4.0-10.0 H (test code = 775) RED BLOOD CELL COUNT ([facility]) 3.12 M/ L 4.20-5.80 L (test [...] 0.00-0.20 (test code = 417) 0.00BASIC METABOLIC [id number] 05:11:00 Test Item Value Reference Range Interpretation [...] S NOT APPLICABLE FOR DIALYSIS PATIEN TS. [id number] 05:05:00 Test Item Value Reference Range Interpretation Comments MAGNESIUM (BEAKER) 2.3 mg/dL 1.6-2.6 Specimen slightly (test code = 627) hemolyzed [id number] 05:05:00 Test Item Value Reference Range Interpretation Comments PHOSPHORUS (BEAKER) 5.9 mg/dL 2.3-4.7 H Specimen slightly (test code = 604) hemolyzed POCT-GLUCOSE [id number] 04:02:00 Test Item Value Reference Range Interpretation Comments POC-GLUCOSE METER 187 mg/dL 70-[address] [facility] ([facility]) (test code = [place] 1538) [address] POCT-GLUCOSE [id number] 02:22:00 Test Item Value Reference Range Interpretation Comments POC-GLUCOSE METER 163 mg/dL 70-[address] [facility] [address] ([facility]) (test code = [place] 1538) [address] POCT-GLUCOSE [id number] 00:54:00 Test Item Value Reference Range Interpretation Comments POC-GLUCOSE METER 239 mg/dL 70-[address] [facility] ([facility]) (test code = [place] 1538) [address] POCT-GLUCOSE [id number] 00:11:00 Test Item Value Reference Range Interpretation Comments POC-GLUCOSE METER 29 mg/dL 70-[address] [facility] ([facility]) (test code = [facility] [place] [facility] [address] 1538) POCT-GLUCOSE [id number] 21:35:00 Test Item Value Reference Range Interpretation Comments POC-GLUCOSE METER 100 mg/dL 70-110 TESTED AT [place] [address] ([facility]) (test code = [facility] 1538) [address] POCT-GLUCOSE [id number] 20:24:00 Test Item Value Reference Range Interpretation Comments POC-GLUCOSE METER 57 mg/dL 70-110 L TESTED AT [place] [address] ([facility]) (test code = [facility] [address] 1538) BASIC METABOLIC [id number] 18:11:00 Test Item Value Reference Range Interpretation [...] NOT APPLICABLE FOR DIALYSIS PATIEN TS. POCT-GLUCOSE [id number] 17:33:00 Test Item Value Reference Range Interpretation Comments POC-GLUCOSE METER 87 mg/dL 70-[address] [facility] (BEAKER) (test code = [facility] [address] 1538) POCT-GLUCOSE [id number] 17:33:00 Test Item Value Reference Range Interpretation Comments POC-GLUCOSE METER 54 mg/dL 70-110 L Notified Pau Bryant MD/TESTED AT (BEAKER) (test code = [facility] [place] [address] POCT-GLUCOSE [id number] 14:05:00 Test Item Value Reference Range Interpretation Comments POC-GLUCOSE METER 159 mg/dL 70-[address] [facility] (BEAKER) (test code = HAL Mai [facility] 1538) [address] POCT-GLUCOSE [id number] 12:26:00 Test Item Value Reference Range Interpretation Comments POC-GLUCOSE METER 247 mg/dL 70-110 H TESTED AT [place] [id number] (BEAKER) (test code = MAID[place] Pau [facility] 1538) [address] BASIC METABOLIC [id number] 11:20:00 Test Item Value Reference Range Interpretation [...] S NOT APPLICABLE FOR DIALYSIS PATIEN TS. [id number] 11:14:00 Test Item Value Reference Range Interpretation Comments MAGNESIUM (BEAKER) (test code = 2.2 mg/dL 1.6-2.6 627) CBC W/PLT COUNT & AUTO [id number] 11:14:00 Test Item Value Reference Range Interpretation [...] L 0.00-0.20 (test code = 417) 0.00POCT-GLUCOSE [id number] 10:17:00 Test Item Value Reference Range Interpretation Comments POC-GLUCOSE METER 172 mg/dL 70-110 H TESTED AT [place] [address] ([facility]) (test code = HAL Mai [place] 1538) [address] POCT-GLUCOSE [id number] 10:17:00 Test Item Value Reference Range Interpretation Comments POC-GLUCOSE METER 167 mg/dL 70-110 H TESTED AT [place] [address] ([facility]) (test code = HAL [place] [facility] 1538) [address] POCT-GLUCOSE [id number] 10:17:00 Test Item Value Reference Range Interpretation Comments POC-GLUCOSE METER 176 mg/dL 70-110 H TESTED AT [place] [address] ([facility]) (test code = [facility] P[place] [facility] 1538) [address] [id number] 08:17:00 Test Item Value Reference Range Interpretation [...] L (test code = 2590) VANCOMYCIN LEVEL, [id number] 06:52:00 Test Item Value Reference Range Interpretation Comments VANCOMYCIN RANDOM (BEAKER) (test 12.8 ug/mL code = 523) Reference Range: No NormalsHold further dosing for vancomycin level > 20, alert MD and RphPOCT-GLUCOSE [id number] 06:16:00 Test Item Value Reference Range Interpretation Comments POC-GLUCOSE METER 179 mg/dL 70-110 H TESTED AT [place] [address] ([facility]) (test code = [facility] [place] [facility] 1538) [address] POCT-GLUCOSE [id number] 05:08:00 Test Item Value Reference Range Interpretation Comments POC-GLUCOSE METER 185 mg/dL 70-[address] [facility] 67[address] (BEAKER) (test code = [place] 1538) [address] PTH, [id number] 05:01:00 Test Item Value Reference Range Interpretation Comments PARATHYROID HORMONE INTACT 114.5 pg/mL 8.5-72.5 H (BEAKER) (test code = 577) Effective 08/05/2014: Reference Range ChangeNew: 8.5-72.5 Previous: 15.0-90.0 BASIC METABOLIC [id number] 04:53:00 Test Item Value Reference Range Interpretation [...] S NOT APPLICABLE FOR DIALYSIS PATIEN TS. [id number] 04:52:00 Test Item Value Reference Range Interpretation Comments PHOSPHORUS (BEAKER) (test code = 3.4 mg/dL 2.3-4.7 604) POCT-GLUCOSE [id number] 04:18:00 Test Item Value Reference Range Interpretation Comments POC-GLUCOSE METER 134 mg/dL 70-[address] [facility] [address] (BEAKER) (test code = [place] 1538) [address] POCT-GLUCOSE [id number] 03:10:00 Test Item Value Reference Range Interpretation Comments POC-GLUCOSE METER 161 mg/dL 70-110 H TESTED AT [place] [id number] (BEAKER) (test code = [place] 1538) [address] POCT-GLUCOSE [id number] 02:13:00 Test Item Value Reference Range Interpretation Comments POC-GLUCOSE METER 173 mg/dL 70-110 H TESTED AT [place] [address] (BEAKER) (test [facility] = [facility] [place] [address]) [address] BASIC METABOLIC [id number] 01:40:00 Test Item Value Reference Range Interpretation [...] NOT APPLICABLE FOR DIALYSIS PATIEN TS. POCT-GLUCOSE [id number] 01:10:00 Test Item Value Reference Range Interpretation Comments POC-GLUCOSE METER 114 mg/dL 70-[address] [facility] [address] (BEAKER) (test code = [facility] [place] [facility] 1538) [address] POCT-GLUCOSE [id number] 00:44:00 Test Item Value Reference Range Interpretation Comments POC-GLUCOSE METER 152 mg/dL 70-110 H TESTED AT [place] [id number] (BEAKER) (test code = [facility] [place] 1538) [address] POCT-GLUCOSE [id number] 23:07:00 Test Item Value Reference Range Interpretation Comments POC-GLUCOSE METER 162 mg/dL 70-110 H TESTED AT [facility] 6720 (BEAKER) (test code = [facility] 1538) [address] POCT-GLUCOSE [id number] 22:12:00 Test Item Value Reference Range Interpretation Comments POC-GLUCOSE METER 115 mg/dL 70-[address] [facility] ([facility]) (test code = [facility] 1538) [address] POCT-GLUCOSE [id number] 21:20:00 Test Item Value Reference Range Interpretation Comments POC-GLUCOSE METER 88 mg/dL 70-110 TESTED AT [place] [address] ([facility]) (test code = [facility] [address] 1538) POCT-GLUCOSE [id number] 20:10:00 Test Item Value Reference Range Interpretation Comments POC-GLUCOSE METER 109 mg/dL 70-110 TESTED AT [place] [address] ([facility]) (test code = [facility] 1538) [address] HEPATITIS B SURFACE [id number] 19:53:00 Test Item Value Reference Range Interpretation Comments HEPATITIS B SURFACE ANTIGEN (2) Nonreactive Nonreactive (BEAKER) (test code = 2585) BASIC METABOLIC [id number] 19:35:00 Test Item Value Reference Range Interpretation [...] NOT APPLICABLE FOR DIALYSIS PATIEN TS. POCT-GLUCOSE [id number] 19:14:00 Test Item Value Reference Range Interpretation Comments POC-GLUCOSE METER 179 mg/dL 70-[address] [facility] [address] (BEAKER) (test code = [place] 1538) [address] POCT-GLUCOSE [id number] 17:57:00 Test Item Value Reference Range Interpretation Comments POC-GLUCOSE METER 173 mg/dL 70-[address] [facility] [address] (BEAKER) (test code = [place] 1538) [address] BASIC METABOLIC [id number] 16:42:00 Test Item Value Reference Range Interpretation [...] NOT APPLICABLE FOR DIALYSIS PATIEN TS. POCT-GLUCOSE [id number] 15:59:00 Test Item Value Reference Range Interpretation Comments POC-GLUCOSE METER 289 mg/dL 70-[address] [facility] 67[address] (BEAKER) (test code = [place] 1538) [address] POCT-GLUCOSE [id number] 15:23:00 Test Item Value Reference Range Interpretation Comments POC-GLUCOSE METER 296 mg/dL 70-[address] [facility] 67[address] (BEAKER) (test code = [place] 1538) [address] POCT-GLUCOSE [id number] 15:23:00 Test Item Value Reference Range Interpretation Comments POC-GLUCOSE METER 342 mg/dL 70-110 H TESTED AT [place] [address] (BEAKER) (test code = [facility] [place] 1538) [address] BASIC METABOLIC [id number] 12:33:00 Test Item Value Reference Range Interpretation [...] NOT APPLICABLE FOR DIALYSIS PATIEN TS. POCT-GLUCOSE [id number] 12:23:00 Test Item Value Reference Range Interpretation Comments POC-GLUCOSE METER 231 mg/dL 70-110 H TESTED AT [place] [address] (BEAKER) (test code = [facility] 1538) [address] HEMOGLOBIN [id number] 11:38:00 Test Item Value Reference Range Interpretation Comments HEMOGLOBIN A1C (BEAKER) (test code = 9.9 % 4.3-6.1 H 368) POCT-GLUCOSE [id number] 11:09:00 Test Item Value Reference Range Interpretation Comments POC-GLUCOSE METER 212 mg/dL 70-110 H TESTED AT [place] [address] (BEAKER) (test code = [facility] 1538) [address] BASIC METABOLIC [id number] 10:52:00 Test Item Value Reference Range Interpretation [...] S NOT APPLICABLE FOR DIALYSIS PATIEN TS. [id number] 10:31:00 Test Item Value Reference Range Interpretation Comments MAGNESIUM (BEAKER) (test code = 2.4 mg/dL 1.6-2.6 627) POCT-GLUCOSE [id number] 10:17:00 Test Item Value Reference Range Interpretation Comments POC-GLUCOSE METER 202 mg/dL 70-[address] [facility] [address] (BEAKER) (test code = [place] 1538) [address] TROPONIN [id number] 10:16:00 Test Item Value Reference Range Interpretation [...] acute neurological disease, and persistent tachyarrhythmia.BLOOD GAS, [id number] 09:27:00 Test Item Value Reference Range Interpretation [...] (test code = 1819) 21.0 % POCT-GLUCOSE [id number] 09:19:00 Test Item Value Reference Range Interpretation Comments POC-GLUCOSE METER 179 mg/dL 70-110 H TESTED AT [place] [address] (BEAKER) (test code = [place] 1538) [address] LACTIC ACID, VENOUS, WHOLE [id number] 09:13:00 Test Item Value Reference Range Interpretation Comments LACTATE BLOOD VENOUS (2) (BEAKER) 1.5 mmol/L 0.5-2.2 (test code = 2872) Effective 01/20/2016: Units/Reference Range ChangeNew: 0.5-2.2 mmol/L Previous: 5-20 mg/dLKETONE, [id number] 08:51:00 Test Item Value Reference Range Interpretation Comments KETONES, BLOOD (BEAKER) (test code 0.0 mmol/L <0.4 = 1103) POCT-GLUCOSE [id number] 08:08:00 Test Item Value Reference Range Interpretation Comments POC-GLUCOSE METER 211 mg/dL 70-110 H TESTED AT [place] [address] (BEAKER) (test code = [place] 1538) [address] POCT-GLUCOSE [id number] 07:30:00 Test Item Value Reference Range Interpretation Comments POC-GLUCOSE METER 230 mg/dL 70-110 H TESTED AT [place] [address] (BEAKER) (test code = [place] 1538) [address] POCT-GLUCOSE [id number] 06:05:00 Test Item Value Reference Range Interpretation Comments POC-GLUCOSE METER 349 mg/dL 70-110 H [place] R Manny DALTON/TESTED (BEAKER) (test code = AT [facility] 67[address] [facility] 1538) [facility] [address] [id number] 05:46:00 Test Item Value Reference Range Interpretation Comments GLUCOSE RANDOM (BEAKER) (test code 472 mg/dL 70-105 HH = 652) Effective 08/05/2014: Reference Range Change-Adult onlyNew: 70-105 Previous: 70-110If last glucose was less than 500, may do bedside glucose instead of serum glucose.[id number] 05:31:00 Test Item Value Reference Range Interpretation Comments POTASSIUM (BEAKER) (test code = 4.8 meq/L 3.5-5.1 379) If last glucose was less than 500, may do bedside glucose instead of serum glucose.KETONE, [id number] 05:16:00 Test Item Value Reference Range Interpretation Comments KETONES, BLOOD (BEAKER) (test code 0.0 mmol/L <0.4 = 1103) POCT-GLUCOSE [id number] 05:00:00 Test Item Value Reference Range Interpretation Comments POC-GLUCOSE METER 456 mg/dL 70-110 HH TESTED AT [place] [id number] (BEAKER) (test code = [place] [address]) [address] POCT-GLUCOSE [id number] 04:08:00 Test Item Value Reference Range Interpretation Comments POC-GLUCOSE METER > mg/dL 70-110 HH OUTSIDE ME ASURING (BEAKER) (test code RANGETES CASANDRA AT [place] [address] = 1538) [facility]EL [facility] [address] [id number] 03:41:00 Test Item Value Reference Range Interpretation Comments GLUCOSE RANDOM (BEAKER) (test code 705 mg/dL 70-105 HH = 652) Effective 08/05/2014: Reference Range Change-Adult onlyNew: 70-105 Previous: 70-110If last glucose was less than 500, may do bedside glucose instead of serum glucose.URINALYSIS W/ REFLEX URINE [id number] 03:02:00 Test Item Value Reference Range Interpretation [...] code = 1584) SOURCE(BEAKER) (test code = 7879) [id number] 02:51:00 Test Item Value Reference Range Interpretation Comments GLUCOSE RANDOM (BEAKER) (test code 684 mg/dL 70-105 HH = 652) Effective 08/05/2014: Reference Range Change-Adult onlyNew: 70-105 Previous: 70-110If last glucose was less than 500, may do bedside glucose instead of serum glucose.COMPREHENSIVE METABOLIC [id number] 02:51:00 Test Item Value Reference Range Interpretation [...] may do bedside glucose instead of serum glucose.[id number] 02:50:00 Test Item Value Reference Range Interpretation Comments THYROID STIMULATING HORMONE 2.15 uIU/mL 0.35-4.94 (BEAKER) (test code = 772) [id number] 02:45:00 Test Item Value Reference Range Interpretation Comments MAGNESIUM (BEAKER) (test code = 2.0 mg/dL 1.6-2.6 627) [id number] 02:45:00 Test Item Value Reference Range Interpretation Comments PHOSPHORUS (BEAKER) (test code = 4.4 mg/dL 2.3-4.7 604) CREATINE KINASE (CK), TOTAL AND [id number] 02:41:00 Test Item Value Reference Range Interpretation Comments CREATINE KINASE TOTAL (BEAKER) 140 U/L 29-200 (test code = 380) CREATINE KINASE-MB (BEAKER) (test 7.2 ng/mL 0.0-6.6 H code = 750) CREATINE KINASE-MB INDEX (BEAKER) 5.1 % (test code = 395) Effective 08/05/2014: CK-MB Reference Range ChangeNew: 0.0-6.6 Previous: 0.0-4.9CK-MB Reference Range:<6.7 Normal6.7-10.0 Borderline>10.0 AbnormalTROPONIN [id number] 02:36:00 Test Item Value Reference Range Interpretation [...] renalfailure, acidosis, acute neurological disease, and persistent tachyarrhythmia.[id number] 02:31:00 Test Item Value Reference Range Interpretation Comments POTASSIUM (BEAKER) (test code = 4.8 meq/L 3.5-5.1 379) If last glucose was less than 500, may do bedside glucose instead of serum glucose.CBC W/PLT COUNT & AUTO [id number] 02:31:00 Test Item Value Reference Range Interpretation [...] 0.00-0.20 (test code = 417) 0.000.640.000.580.000.000.000.00BLOOD GAS, [id number] 02:26:00 Test Item Value Reference Range Interpretation [...] 1819) 30.0 % LACTIC ACID, ARTERIAL, WHOLE [id number] 02:25:00 Test Item Value Reference Range Interpretation Comments LACTATE BLOOD ARTERIAL (2) 4.9 mmol/L 0.5-2.2 H (ANTONIO) (test code = 2874) Effective 01/20/2016: Units/Reference Range ChangeNew: 0.5-2.2 mmol/L Previous: 5-20 mg/dLPOCT-GLUCOSE [id number] 02:18:00 Test Item Value Reference Range Interpretation Comments POC-GLUCOSE METER 493 mg/dL 70-[address] [facility] [address] ([facility]) (test code = [place] 1538) [address] [id number] 02:17:00 Test Item Value Reference Range Interpretation Comments PARTIAL THROMBOPLASTIN TIME 25.3 seconds 22.5-36.0 ([facility]) (test code = 760) PROTHROMBIN [id number] 02:16:00 Test Item Value Reference Range Interpretation Comments PROTIME (LUCY) (test code = 13.2 seconds 11.7-14.7 759) INR ([facility]) (test code = 370) 1.0 <=5.9 RECOMMENDED COUMADIN/WARFARIN INR THERAPY RANGESSTANDARD DOSE: 2.0 - 3.0 Includes: PROPHYLAXIS forvenous thrombosis, systemic embolization; TREATMENT for venous thrombosis and/or pulmonary embolus.HIGH RISK: Target INR is 2.5-3.5 for patients with mechanical heart valves.
[2021-05-15 03:56] LABS: Absolute Lymphocytes (CBC) 0.7 K/uL (0.7-4.9); Basophils % 1.6 % (0-1.3); Hematocrit 35.5 % (39.6-49.0); Lymphocytes % 9.4 % (15.3-44.8); RBC Red Blood Cell Count 3.66 M/uL (4.33-5.43)
[2021-05-15 04:25] LABS: BUN Blood Urea Nitrogen 37 mg/dL (7-18); Bicarbonate 25 mmol/L (21-32); Sodium Level 125 mmol/L (136-145)
[2021-05-15 04:27] LABS: Glucose Level 862 mg/dL (74-106); Potassium 5.7 mmol/L (3.5-5.1)
[2021-05-15] MEDS ORDERED: INSULIN -REGULAR HUMAN 50 UNIT/0.5 ML ML ONE (05:05)
[2021-05-15] MEDS ORDERED: CALCIUM GLUCONATE 1 GM IVPB 1 GM/50 ML BAG IV ONE (05:06)
--- NOTE | 2021-05-15 05:06 | EDPHYS ---
Physician Documentation [facility] Name: Orlando Culp Age: 45 yrs Sex: Male : 1975 Arrival Date: 05/15/2021 Time: 03:20 Bed 5 Private MD: ED Physician Jarett Leon HPI: 05/15 03:23 This 45 yrs old Male presents to ER via Unassigned with complaints of AMS. rn 03:23 The patient presents with decreased mental status, decreased responsiveness. Onset: The rn symptoms/episode began/occurred at an unknown time. Possible causes: unknown. Associated signs and symptoms: Pertinent positives: confusion. Current symptoms: In the emergency department the patient's symptoms are unchanged from the initial presentation. Unable to obtain HPI due to altered mental status. It is unknown whether or not the patient has had similar symptoms in the past. It is unknown whether or not the patient has recently seen a physician. EMS states that brother checked on patient while sleeping, seemed diaphoretic and decreased responsiveness, assumed glucose was low so gave him Coke and juice. Patient with recurrent episodes of hypoglycemia in the past. No change in mental status since picking him up.. Historical: - Allergies: 03:32 PENICILLINS; em 03:32 Phenergan; em - PMHx: 03:32 Diabetes - IDDM; dialysis (port in left upper arm); ESRD; GERD; Hypertension; em - Immunization history:: Adult Immunizations unknown. - Social history:: Smoking status: unknown. - Family history:: not pertinent. - Hospitalizations: : No recent hospitalization is reported. - History obtained from: EMS. ROS: 03:23 Unable to obtain ROS due to altered mental status. rn Exam: 03:23 Constitutional: This is a well developed, well nourished patient who is somnolent, rn moving all 4 extremities Head/Face: Normocephalic, swollen upper lip with dried blood, no laceration ENT: Dry mucous membranes Cardiovascular: Regular rate and rhythm. No pulse deficits. Respiratory: No increased work of breathing, no retractions or nasal flaring. Abdomen/GI: Soft, non-tender Skin: Warm, dry MS/ Extremity: Pulses equal, no cyanosis. Neuro: Patient somnolent, but awakens and moves to position of comfort easily with stimulation. Moves all 4 extremities. Localizes pain. 03:41 ECG was reviewed by the Attending Physician. rn Vital Signs: 03:23 BP 170 / 131; Pulse 99; Resp 20; Temp 97.6; Pulse Ox 97% on R/A; em 09:31 Weight 68 kg; sv 03:23 pt was moving while BP was taking em MDM: 03:20 Patient medically screened. rn 05:01 Differential Diagnosis: electrolyte abnormality, hypoglycemia, intracranial bleed, rn seizure, volume depletion, Hyperglycemia. Data reviewed: vital signs, nurses notes, lab test result(s), EKG, radiologic studies, CT scan, and as a result, I will admit patient. Data interpreted: satellite project site monitor: rate is 99 beats/min, rhythm is normal sinus rhythm, regular, with no ectopy, Interpretation: normal rate, normal rhythm, Pulse oximetry: on room air is 97 %. Interpretation: normal. Test interpretation: by ED physician or midlevel provider: ECG. Counseling: I had a detailed discussion with the patient and/or guardian regarding: the historical points, exam findings, and any diagnostic results supporting the discharge/admit diagnosis, lab results, radiology results, the need for further work-up and treatment in the hospital. Response to treatment: the patient's symptoms have mildly improved after treatment, and as a result, I will admit patient. Admission orders: after a detailed discussion of the patient's condition and case, the admit orders are written by me. ED course: Patient with hyperglycemia, negative ketones and no acidosis. Also with hyperkalemia and peaked T waves on ECG. Will admit to hospitalist service for further care and dialysis. Given insulin and calcium here for potassium temporization.. 05:13 ED course: Still no radiology read, anesthesia tech states still not able to submit rn images and IT has not gotten back to her with a solution. Several calls to Dr. Moore and texts by technical assoc without response or answering of phone. Attempting to call another radiologist to have the studies read.. 05/15 03:22 Order name: CBC with Diff; Complete Time: 04:30 rn 05/15 03:22 Order name: Basic Metabolic Panel; Complete Time: 04:30 rn 05/15 03:22 Order name: Ketone, Serum; Complete Time: 04:30 rn 05/15 03:22 Order name: Blood Culture Adult (2) rn 05/15 03:53 Order name: Glucose, Ancillary Testing; Complete Time: 04:30 EDMS 05/15 06:40 Order name: CBC with Automated Diff EDMS 05/15 06:40 Order name: CBC with Automated Diff EDMS 05/15 06:40 Order name: Comprehensive Metabolic Panel EDMS 05/15 06:40 Order name: Comprehensive Metabolic Panel EDMS 05/15 06:40 Order name: Magnesium EDMS 05/15 06:40 Order name: Magnesium EDMS 05/15 06:40 Order name: Phosphorus EDMS 05/15 06:40 Order name: Phosphorus EDMS 05/15 03:22 Order name: CT Head Brain wo Cont rn 05/15 06:40 Order name: Hemoglobin A1c EDMS 05/15 06:41 Order name: Urinalysis EDWI 05/15 07:01 Order name: Glucose, Ancillary Testing EDMS 05/15 07:02 Order name: Glucose, Ancillary Testing EDMS 05/15 07:40 Order name: SARS-COV-2 RT PCR EDMS 05/15 09:42 Order name: Glucose, Ancillary Testing EDWI 05/15 12:40 Order name: Manual Differential EDWI 05/15 16:21 Order name: Glucose, Ancillary Testing EDMS 05/15 16:48 Order name: Glucose, Ancillary Testing EDMS 05/15 20:27 Order name: Glucose, Ancillary Testing EDWI 05/15 22:05 Order name: Glucose, Ancillary Testing EDWI 05/15 22:07 Order name: Glucose, Ancillary Testing EDWI 05/16 01:20 Order name: Glucose, Ancillary Testing EDWI 05/16 05:06 Order name: Renal Panel EDWI 05/16 08:12 Order name: Glucose, Ancillary Testing EDWI 05/15 03:22 Order name: IV Start; Complete Time: 03:51 rn 05/15 03:22 Order name: Glucose Level; Complete Time: 03:51 rn 05/15 03:22 Order name: EKG; Complete Time: 03:22 rn 05/15 03:22 Order name: EKG - Nurse/Tech; Complete Time: 03:51 rn 05/15 03:22 Order name: XRAY Chest (1 view) rn 05/15 05:22 Order name: CONS Physician Consult EDWI 05/15 05:58 Order name: Social Service Consult EDWI 05/15 06:40 Order name: Consistent Carb (ADA) 1800 Carlo EDMS 05/15 06:40 Order name: Dietitian Consult EDWI EC:41 Rate is 96 beats/min. Rhythm is regular. QRS Brooks is Normal. MI interval is normal. QRS rn interval is normal. QT interval is normal. No Q waves. T waves are Normal. No ST changes noted. Clinical impression: Normal ECG. Interpreted by me. Reviewed by me. Administered Medications: 04:56 Drug: Insulin Regular Human 10 units {Co-Signature: dennis (Jerri Nevarez RN).} Route: IVP; em Site: Other; 06:16 Follow up: Response: No adverse reaction dennis 04:57 Drug: Calcium Gluconate 1 grams Route: IVPB; Infused Over: 60 mins; Site: Other; dennis 06:15 Follow up: Response: No adverse reaction; IV Status: Completed infusion dennis Disposition: 05:04 Critical Care:. rn Disposition Summary: 05/15/21 05:05 Hospitalization Ordered Hospitalization Status: Inpatient Admission rn Provider: Hector Perez rn Condition: Stable rn Problem: new rn Symptoms: have improved rn Bed/Room Type: Standard rn Location: Telemetry/MedSurg (Inpatient)(05/16/21 07:51) eb Room Assignment: 218(05/16/21 07:51) eb Diagnosis - Hyperglycemia, unspecified rn - Altered mental status, unspecified rn - Hyperkalemia rn - End stage renal disease rn Forms: - Medication Reconciliation Form rn - SBAR form alternative energy technician time excluding procedures: 05:04 Critical care time: Bedside Care: 30 minutes, Consultation: 5 minutes. Total time: 35 rn minutes Signatures: [facility] Gladys Hilario RN Jason Bradley RN Jarett Vo MD MD rn Antunez, Elena, RN RN ea Botello, Elizabeth eb Elena Antunez RN ea Corrections: (The following items were deleted from the chart) 06:04 05:05 Telemetry/MedSurg (Inpatient) alice wynn 06:04 05:05 alice wynn 06:45 06:05 CORONAVIRUS+MR.LAB.BRZ ordered. [facility] EDWI 05/16 07:51 05/15 06:04 [facility] ER HOLD tianna arellano 05/16 07:51 05/15 06:04 ERHOLD- mw eb
--- NOTE | 2021-05-15 05:06 | ER ---
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 Coronavirus screen: At this time, unable to obtain information related to travel outside the [place] Ebola Screen: Patient denies exposure to infectious person. Initial Sepsis Screen: Does the patient meet any 2 criteria? No. Patient's initial sepsis screen is negative. Does the patient have a suspected source of infection? No. Patient's initial sepsis screen is negative. Risk Assessment: Do you want to hurt yourself or someone else? Patient reports no desire to harm self or others. Onset of symptoms was May 15, 2021. 03:23 Method Of Arrival: EMS: [facility] em 03:23 Acuity: DEMARIO 2 em Historical: - Allergies: 03:32 PENICILLINS; em 03:32 Phenergan; em - PMHx: 03:32 Diabetes - IDDM; dialysis (port in left upper arm); ESRD; GERD; Hypertension; em - Immunization history:: Adult Immunizations unknown. - Social history:: Smoking status: unknown. - Family history:: not pertinent. - Hospitalizations: : No recent hospitalization is reported. - History obtained from: EMS. Screenin:51 Abuse screen: Denies threats or abuse. Nutritional screening: No deficits noted. ea Tuberculosis screening: No symptoms or risk factors identified. Fall Risk IV access (20 points). Assessment: 03:51 General: Appears in no apparent distress. Behavior is drowsy. Pain: Unable to use pain ea scale. FLACC scale score is 0 out of 10. Neuro: Level of Consciousness is lethargic, Oriented to none. Respiratory: Airway is patent Respiratory effort is even, unlabored, Respiratory pattern is regular, symmetrical. Derm: Skin is pink, warm \T\ dry. Vital Signs: 03:23 BP 170 / 131; Pulse 99; Resp 20; Temp 97.6; Pulse Ox 97% on R/A; em 09:31 Weight 68 kg; sv 03:23 pt was moving while BP was taking em ED Course: 03:20 Patient arrived in ED. rn 03:20 Jarett Leon MD is Attending Physician. rn 03:32 Triage completed. em 03:32 Arm band placed on. em 03:51 Patient has correct armband on for positive identification. Bed in low position. Call ea light in reach. Side rails up X2. 03:51 Inserted saline lock: 20 gauge in right Blood collected. ea 03:52 XRAY Chest (1 view) In Process Unspecified. EDMS 03:56 CT Head Brain wo Cont In Process Unspecified. EDMS 04:34 Jerri Nevarez RN is Primary Nurse. ea 05:04 Hector Perez is Hospitalizing Provider. rn 10:43 No provider procedures requiring assistance completed. Patient admitted, IV remains in sv place. intact. Administered Medications: 04:56 Drug: Insulin Regular Human 10 units {Co-Signature: dennis (Jerri Nevarez RN).} Route: IVP; em Site: Other; 06:16 Follow up: Response: No adverse reaction ea 04:57 Drug: Calcium Gluconate 1 grams Route: IVPB; Infused Over: 60 mins; Site: Other; ea 06:15 Follow up: Response: No adverse reaction; IV Status: Completed infusion dennis Outcome: 05:05 Decision to Hospitalize by Provider. rn 10:43 Admitted to ER Hold. Please see [facility] for further documentation. sv 10:43 Condition: stable 10:43 Instructed on the need for admit. 05/16 09:58 Patient left the ED. hb Signatures: Dispatcher [employer] Annabella Hawk RN RN sv Munoz, Edgar RN KAELA Jarett Leon MD MD rn Baxter, Heather, RN RN Jerri Nevarez RN RN ea Elena Antunez RN ea
--- NOTE | 2021-05-15 05:38 | RAD REPORT ---
EXAM DESCRIPTION: CT - Head Brain Wo Cont - 05/15/2021 3:56 am CLINICAL HISTORY: CONFUSED Headache, drowsiness COMPARISON: Head Brain Wo Cont dated 04/22/2021; Head Brain Wo Cont dated 03/09/2020 TECHNIQUE: All CT scans are performed using dose optimization technique as appropriate and may inclu de automated exposure control or mA/KV adjustment according to patient size. FINDINGS: No intracranial hemorrhage, hydrocephalus or extra-axial fluid collection.Mild generalized brain atrophy is present.No areas of brain edema or evidence of midline shift. The paranasal sinuses and mastoids are clear. The calvarium is intact. Chronic volume loss right glob e. IMPRESSION: No acute intracranial abnormality.
--- NOTE | 2021-05-15 05:46 | RAD REPORT ---
EXAM DESCRIPTION: RAD - Chest Single View - 05/15/2021 3:52 am CLINICAL HISTORY: ams Chest pain. COMPARISON: Chest Single View dated 04/22/2021; Chest Single View dated 01/16/2021; Chest Single View da reyna 01/14/2021; Chest Single View dated 01/07/2021 FINDINGS: Portable technique limits examination quality. Moderate bilateral interstitial lung opacities are present which may be related to pulmonary edema or infection. The heart is normal in size. No displaced fractures.Vascular stent is noted right superio r mediastinum.
--- NOTE | 2021-05-15 05:56 | P.HP ---
Certification for Inpatient Patient admitted to: Inpatient With expected LOS: >2 Midnights Patient will require the following post-hospital care: Home Health Services Practitioner: I am a practitioner with admitting privileges, knowledge of patient current condition, hospital course, and medical plan of care. Services: Services provided to patient in accordance with Admission requirements found in Title 42 Section 412.3 of the Code of Federal Regulations Patient History Date of Service: 05/15/21 Reason for admission: hyperglcyemia, hyperkalemia History of Present Illness: Mr. Klevin Culp is a 45 yo M with uncontrolled DM, HTN, and ESRD on HD TTS who was brought in by EMS for hyperglycemia and hyperkalemia. Patient lives with his brother who checks on him every night. He found the patient to be diaphoretic and thought he was hypoglycemic as he usually is. He had the patient drink coke and juice but this didn't help so he called 911. EMS gave 19 units of Tresiba before arrival to ED. In the ED, he received 10 units IVP insulin. He is altered, and unable to answer questions. CT head wnl. Na 125, K 5.7, Cl 91, HCO3 25, BUN 37, Cr 5.89, Cl 10, Glu 862. Allergies Penicillins Allergy (Intermediate, Verified 04/27/20 15:35) Rash promethazine [From Phenergan] Allergy (Verified 04/27/20 15:35) Rash Home Medications: Amlodipine Besylate [Norvasc] 5 mg PO DAILY #30 tablet 04/24/21 Ascorbic Acid [Vitamin C*] 500 mg PO TID #90 tablet 04/24/21 Calcium Carbonate [Tums Regular*] 500 mg PO AC 04/24/21 Folic Acid/Vit B Complex and C [Judy-Dionne Tablet] 0.8 mg PO DAILY 04/24/21 Insulin Aspart [Novolog Flexpen] See Protocol SQ SEECOM #1 box 04/24/21 Loperamide [Imodium*] 2 mg PO Q4HP PRN 04/24/21 Psyllium Husk (with Sugar) [Metamucil Packet] 1 packet PO TID PRN 04/24/21 Sevelamer Carbonate [Renvela*] 800 mg PO TIDWM 04/24/21 Thiamine HCl [Vitamin B-1*] 100 mg PO DAILY #30 tablet 04/24/21 Zinc Sulfate [Zinc Sulfate*] 220 mg PO DAILY #30 cap 04/24/21 carvediloL [Coreg*] 12.5 mg PO BID 04/24/21 - Past Medical/Surgical History Diabetic: Yes -: Diabetes mellitus type 2 -: ESRD on HD TTS -: Hypertension -: Renal failure -: Sepsis -: gi tube -: Rt eye sx -: chin sx with wound vac Psychosocial/ Personal History: Unable to obtain - Family History Mother -: Hypertension - Social History Smoking Status: Unknown if ever smoked Alcohol use: No CD- Drugs: No Caffeine use: No Place of Residence: Home Review of Systems is unable to be obtained Physical Examination - Physical Exam General: Cachectic, Disheveled, Delirious HEENT: Atraumatic Neck: 2+ carotid pulse no bruit, No LAD, Without JVD or thyroid abnormality Respiratory: Diminished Cardiovascular: No edema, Regular rate/rhythm, Normal S1 S2, No gallops, No rubs, No murmurs Capillary refill: <2 Seconds Gastrointestinal: Normal bowel sounds, Soft and benign, No tenderness Musculoskeletal: No tenderness Integumentary: Skin lesion Neurological: Normal strength at 5/5 x4 extr, Normal tone, Sensation intact, Abnormal speech, Abnormal affect Lymphatics: No axilla or inguinal lymphadenopathy - Studies Laboratory Data (last 24 hrs) 05/15/21 03:35: Sodium 125 L, Potassium 5.7 H*, BUN 37 H, Creatinine 5.89 H*, Glucose 862 H* 05/15/21 03:35: WBC 7.10, Hgb 11.4 L, Hct 35.5 L, Plt Count 115 L Assessment and Plan - Problems (Diagnosis) (1) Hyperglycemia Current Visit: Yes Status: Acute (2) Hyperkalemia Current Visit: Yes Status: Acute (3) DM2 (diabetes mellitus, type 2) Current Visit: No Status: Chronic Qualifiers: Diabetes mellitus detention 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 Diabetes mellitus complication status: with kidney complications Chronic kidney disease stage: on chronic dialysis (4) HTN (hypertension) Current Visit: No Status: Chronic Qualifiers: Hypertension type: primary hypertension Qualified Code(s): I10 - Essential (primary) hypertension - Plan nephrology consulted, dialysis this AM received 19 units of tresiba, and 10 units of regular insulin, will continue on moderate sliding scale, check A1c monitor closely for hypoglycemia due to history repeat BMP, monitor K+ reconcile and continue home medications hydralazine IV PRN for BP spikes on telemetry DVT ppx Discharge Plan: Home Plan to discharge in: 48 Hours - Advance Directives Does patient have a Living Will: No Does patient have a Durable POA for Healthcare: No - Code Status/Comfort Care Code Status Assessed: Yes (full code ) Critical Care: No Time Spent Managing Pts Care (In Minutes): 70
[2021-05-15] MEDS ORDERED: ACETAMINOPHEN 500 MG TAB PO PRN (06:40)
[2021-05-15] MEDS ORDERED: HYDRALAZINE HCL 20 MG/ML VIAL IV PRN (06:40)
[2021-05-15] MEDS ORDERED: GLUCAGON 1 MG/VIAL IM PRN ×3 (06:40→13:00)
[2021-05-15] MEDS ORDERED: INSULIN -REGULAR HUMAN 100 UNIT in NA CHLORIDE 0.9% 100 ML IV SCH (06:40)
[2021-05-15] MEDS ORDERED: ONDANSETRON 4 MG/2 ML VIAL IV PRN (06:40)
[2021-05-15] MEDS: carvediloL 12.5 MG TAB PO SCH ×2 (08:00→18:00)
[2021-05-15] MEDS: AMLODIPINE 5 MG TAB PO SCH (09:00)
[2021-05-15 09:32] VITALS: BMI 24.2
--- NOTE | 2021-05-15 10:33 | P.PN ---
Subjective Date of Service: 05/15/21 Chief Complaint: hyperglcyemia, hyperkalemia Subjective: No new changes (Patient non responsive) Review of Systems is unable to be obtained Physical Examination - Physical Exam General: In no apparent distress, Delirious HEENT: Atraumatic, PERRLA, EOMI Neck: Supple, JVD not distended Respiratory: Clear to auscultation bilaterally, Normal air movement Cardiovascular: Regular rate/rhythm, Normal S1 S2 Gastrointestinal: Normal bowel sounds, No tenderness Musculoskeletal: No tenderness Integumentary: No rashes Neurological: Normal speech, Normal tone, Normal affect Lymphatics: No axilla or inguinal lymphadenopathy - Studies Laboratory Data (last 24 hrs) 05/15/21 03:35: Sodium 125 L, Potassium 5.7 H*, BUN 37 H, Creatinine 5.89 H*, Glucose 862 H* 05/15/21 03:35: WBC 7.10, Hgb 11.4 L, Hct 35.5 L, Plt Count 115 L Assessment & Plan - Problems (Diagnosis) (1) Hyperglycemia Current Visit: Yes Status: Acute Plan: improving with fluids and insulin. Pt is altered. Will consider a ct if he does not improve by this afternoon (2) ESRD (end stage renal disease) Current Visit: No Status: Acute Plan: dialysis with Dr. Cordoba (3) HTN (hypertension) Current Visit: No Status: Chronic Plan: well controlled will adjust the meds as necessary Qualifiers: Hypertension type: primary hypertension Qualified Code(s): I10 - Essential (primary) hypertension Discharge Plan: Home - Code Status/Comfort Care Code Status Assessed: No Physician Review: Patient Assessed, Agree with Above Assessment and Plan Critical Care: No Time Spent Managing Pts Care (In Minutes): 20
[2021-05-15] MEDS ORDERED: NA CHLORIDE 0.9% 1,000 ML IV SCH (11:00)
[2021-05-15] MEDS: CALCIUM CARBONATE CHEW 500MG TAB PO SCH ×2 (11:30→16:30)
[2021-05-15 11:47] LABS: Absolute Lymphocytes (CBC) 0.8 K/uL (0.7-4.9); Basophils % 0.7 % (0-1.3); Hematocrit 32.9 % (39.6-49.0); Lymphocytes % 6.4 % (15.3-44.8); MPV 9.3 fL (7.6-11.3); RBC Red Blood Cell Count 3.59 M/uL (4.33-5.43)
[2021-05-15] MEDS ORDERED: CLONIDINE 0.1 MG/PATCH TD SCH (12:00)
[2021-05-15] MEDS: SEVELAMER CARBONATE 800 MG TABLET PO SCH ×2 (12:00→16:41)
[2021-05-15] MEDS ORDERED: NA CHLORIDE 0.9% 1,000 ML ONE (12:04)
[2021-05-15 12:09] LABS: Albumin 4.1 g/dL (3.4-5.0); Bilirubin Total 0.5 mg/dL (0.2-1.0); Magnesium 2.1 mg/dL (1.8-2.4); Phosphorus 4.6 mg/dL (2.5-4.9); Potassium 5.1 mmol/L (3.5-5.1); Protein, Total 7.4 g/dL (6.4-8.2)
[2021-05-15 12:40] LABS: Blood Morphology Comment NOT SEEN (NOT SEEN); Platelet Estimate ADEQ
[2021-05-15] MEDS ORDERED: LORAZEPAM 1 MG TABLET PO PRN (12:49)
[2021-05-15] MEDS ORDERED: D50W 25 GM/50 ML SYRINGE IV PRN ×2 (13:00)
[2021-05-15] MEDS ORDERED: WATER FOR INJ,STERILE 10 ML IM PRN ×2 (13:09→13:16)
[2021-05-15] MEDS ORDERED: ZIPRASIDONE MESYLA 20 MG/VIAL IM PRN (13:09)
[2021-05-15] MEDS ORDERED: LORazepam 2 MG/ML VIAL ONE (13:13)
[2021-05-15] MEDS ORDERED: ZIPRASIDONE MESYLA 20 MG/VIAL IM ONE (13:16)
[2021-05-15] MEDS: INSULIN -REGULAR HUMAN 50 UNIT/0.5 ML ML SQ SCH ×2 (16:18→21:00)
[2021-05-15] MEDS: D50W 25 GM/50 ML SYRINGE IV PRN (16:18)
--- NOTE | 2021-05-15 16:27 | CON ---
Date of Consultation: 05/15/2021 Additional Consulting Physician: Suraj Arora MD. Reason For Consultation: Elevated BUN and creatinine, hyperkalemia, end-stage renal disease, acidosis. History Of Present Illness: This is a pleasant 45-year-old gentleman, well known to me from dialysis. All the information has been obtained from the record as the patient is obtunded. The patient has past medical history of diabetes, hypertension, end-stage renal disease, on dialysis TTS. Hypertension. Venous central stenosis. The patient came to the hospital with altered mental status, found to have hyperglycemia and hyperkalemia. For that reason, we have been consulted. Past Medical History: Include: 1. Hypertension. 2. Hyperlipidemia. 3. End-stage renal disease. 4. Central venous stenosis. 5. Diabetes with neuropathy, retinopathy, and nephropathy. Family History: Positive for hypertension. Social History: Denies smoking. Denies drinking. Denies drug abuse. Review of Systems: None obtainable. Home Medications: Include currently: 1. Amlodipine. 2. Calcium carbonate. 3. Carvedilol. 4. Hydralazine. 5. Renvela that in the hospital. At home has: 1. Carvedilol. 2. Thiamin. 3. Renvela. 4. Loperamide. 5. Calcium carbonate. 6. Vitamin C. 7. Amlodipine. Physical Examination: Vital Signs: Blood pressure of 180/95, pulse of 87, afebrile. Chest: Crackles, bilateral base. Heart: S1, S2. Systolic murmur. Abdomen: Soft, nontender. Extremities: No edema. Neuro: Obtunded. Moving 4 extremities. No focality. Laboratory Data: Sodium 125, potassium 5.7, bicarb 25, BUN 37, creatinine 5.8, GFR of 10, glucose 862, calcium 7.2. WBC 7.1, H and H 11.4/35.5. Assessment And Plan: 1. End-stage renal disease with hyperkalemia, hyponatremia. I am going to start the patient to resume his dialysis and we will follow up the patient closely. The patient is going to be dialyzed on low-potassium bath. 2. Hypertension. Given that the patient is obtunded, I am going to start the patient on clonidine patch. 3. Hyponatremia, corrected. Sodium is within normal limit. It is pulsed hyponatremia secondary to hyperglycemia. 4. Secondary hyperpara. Continue binder. 5. Hyperkalemia. The patient is going to be dialyzed on low-potassium bath. 6. Hyperglycemia. We will follow up with the primary. I agree with the insulin. 7. Altered mental status. Possible metabolic. We will get CT. We will hold on any heparin on the dialysis till we get the result of the CT. We will follow up with the primary. Time spent examining the patient [id number] placing order discussing with the patient reviewing data discussing the case with all of our subspecialty including hospitalist 75 minutes MUKESH Voice ID: [id number] Report ID: [id number] ADRIA
[2021-05-15] MEDS ORDERED: INSULIN GLARGINE 100 UNITS/ML SQ SCH (17:00)
[2021-05-15] MEDS ORDERED: D50W 25 GM/50 ML SYRINGE IV ONE (20:39)
[2021-05-15] MEDS ORDERED: D5 0.45 NS 1,000 ML IV ONE (20:48)
[2021-05-15] MEDS ORDERED: D5 0.45 NS 1,000 ML IV SCH (21:00)
[2021-05-16 04:58] LABS: Albumin 3.3 g/dL (3.4-5.0); Phosphorus 3.1 mg/dL (2.5-4.9); Potassium 3.8 mmol/L (3.5-5.1)
[2021-05-16] MEDS: carvediloL 12.5 MG TAB PO SCH ×2 (06:00→19:01)
[2021-05-16] MEDS ORDERED: carvediloL 6.25 MG TAB ONE (07:27)
[2021-05-16] MEDS: INSULIN -REGULAR HUMAN 50 UNIT/0.5 ML ML SQ SCH ×4 (07:30→21:16)
[2021-05-16] MEDS: CALCIUM CARBONATE CHEW 500MG TAB PO SCH ×3 (07:30→18:59)
[2021-05-16] MEDS: SEVELAMER CARBONATE 800 MG TABLET PO SCH ×3 (08:00→18:59)
[2021-05-16] MEDS ORDERED: AMLODIPINE 5 MG TAB ONE (08:04)
[2021-05-16] MEDS: AMLODIPINE 5 MG TAB PO SCH (09:00)
--- NOTE | 2021-05-16 14:27 | P.PN ---
Subjective Date of Service: 05/16/21 Chief Complaint: hyperglcyemia, hyperkalemia Subjective: Improving Review of Systems 10-point ROS is otherwise unremarkable Physical Examination - Vital Signs Temperature: 97.5 F Blood Pressure: 189/90 Pulse: 89 Respirations: 17 Pulse Ox (%): 98 - Physical Exam General: Alert, In no apparent distress HEENT: Atraumatic, PERRLA, EOMI Neck: Supple, JVD not distended Respiratory: Clear to auscultation bilaterally, Normal air movement Cardiovascular: Regular rate/rhythm, Normal S1 S2 Gastrointestinal: Normal bowel sounds, No tenderness Musculoskeletal: No tenderness Integumentary: No rashes Neurological: Normal speech, Normal tone, Normal affect Lymphatics: No axilla or inguinal lymphadenopathy Assessment & Plan - Problems (Diagnosis) (1) Hyperglycemia Current Visit: Yes Status: Resolved Plan: improving with fluids and insulin. Pt is altered. Will consider a ct if he does not improve by this afternoon 06/15 Patients sugar and mentation are better controlled (2) ESRD (end stage renal disease) Current Visit: No Status: Acute Plan: dialysis with Dr. Cordoba (3) HTN (hypertension) Current Visit: No Status: Chronic Plan: well controlled will adjust the meds as necessary Qualifiers: Hypertension type: primary hypertension Qualified Code(s): I10 - Essential (primary) hypertension Discharge Plan: Home - Code Status/Comfort Care Code Status Assessed: No Physician Review: Patient Assessed, Agree with Above Assessment and Plan Critical Care: No Time Spent Managing Pts Care (In Minutes): 20
--- NOTE | 2021-05-16 14:40 | PN ---
Date of Progress Note: 05/16/2021 Subjective: The patient was admitted with altered mental status, hyperglycemia because of poor compliant. Infection has been ruled out. The patient was started on insulin. Blood sugar apparently dropped. Today, the patient more awake, follows conversation, still confused . Physical Examination: Vital Signs: Blood pressure 189/90, pulse of 89, afebrile. The patient had dialysis yesterday. Chest: Clear to auscultation. Heart: S1, S2. Systolic murmur. Abdomen: Soft, nontender. Extremity: No edema. Neuro: Alert. No focality. Oriented to place, not oriented to person or time. Laboratory Data: WBC 13, H and H 10.9/32.9. Sodium 136, potassium 3.8, bicarb 28, BUN 18, creatinine 4.1, calcium 8.1, phosphorus 3.1, albumin 3.3. Current Medications: The patient on include amlodipine 5 mg, carvedilol 12.5, clonidine patch, Renvela 1 tablet with each meal, insulin Lantus subcu to 5 units. Assessment And Plan: 1. End-stage renal disease, normal volume currently. I am going to go ahead and continue the patient on his dialysis schedule as TTS and we will monitor. 2. Hypertension, not controlled. We will go ahead and increase his amlodipine to 10 mg. 3. The patient has diabetes. Will get benefit from adding MARTIN inhibitor or ARB. We will add losartan and we will monitor the patient. Continue carvedilol. 4. Secondary hyperparathyroidism. Continue Renvela. 5. Diabetes with hyperglycemia, nonketotic hyperglycemia, recovered. Currently, hypoglycemia. We will follow up with primary. 6. Altered mental status secondary to metabolic, resolved. CT negative. We will follow up with primary. Time spent examining the patient [id number] placing order discussing with the patient reviewing data discussing the case with all of our subspecialty including hospitalist 45 minutes MUKESH Voice ID: [id number] Report ID: [id number] ADRIA
[2021-05-16] MEDS ORDERED: INSULIN GLARGINE 100 UNITS/ML SQ SCH (17:00)
[2021-05-17 05:49] LABS: Albumin 2.9 g/dL (3.4-5.0); Phosphorus 4.9 mg/dL (2.5-4.9); Potassium 4.2 mmol/L (3.5-5.1)
[2021-05-17] MEDS: carvediloL 12.5 MG TAB PO SCH (06:46)
[2021-05-17] MEDS: D50W 25 GM/50 ML SYRINGE IV PRN (07:47)
[2021-05-17] MEDS ORDERED: AMLODIPINE 5 MG TAB PO SCH (09:00)
[2021-05-17] MEDS ORDERED: LOSARTAN POTASSIUM 50 MG TABLET PO SCH (09:00)
[2021-05-17 13:09] VITALS: O2SAT 98
--- NOTE | 2021-05-17 14:52 | P.DS ---
Admission Date: 05/15/21 Discharge Date: 05/17/21 Primary Care Provider: Nephrology-Dr. Shah Disposition: ROUTINE DISCHARGE Discharge Condition: GOOD Reason for Admission: hyperglcyemia, hyperkalemia Consultations: Nephrology-Dr. Shah Procedures: COVID: Negative CT head: COMPARISON: Head Brain Wo Cont dated 04/22/2021; Head Brain Wo Cont dated 03/09/2020 TECHNIQUE: All CT scans are performed using dose optimization technique as appropriate and may include automated exposure control or mA/KV adjustment according to patient size. FINDINGS: No intracranial hemorrhage, hydrocephalus or extra-axial fluid collection.Mild generalized brain atrophy is present.No areas of brain edema or evidence of midline shift. The paranasal sinuses and mastoids are clear. The calvarium is intact. Chronic volume loss right globe. IMPRESSION: No acute intracranial abnormality. Chest x-ray: COMPARISON: Chest Single View dated 04/22/2021; Chest Single View dated 01/16/2021; Chest Single View dated 01/14/2021; Chest Single View dated 01/07/2021 FINDINGS: Portable technique limits examination quality. Moderate bilateral interstitial lung opacities are present which may be related to pulmonary edema or infection. The heart is normal in size. No displaced fractures.Vascular stent is noted right superior mediastinum. Medical problem list: Hypoglycemia with diabetes mellitus type 2 Hyperkalemia, hyponatremia with end-stage renal disease on hemodialysis Hypertension Noncompliance with follow-up Brief History of Present Illness: 45-year-old male with history of diabetes mellitus type 2, hypertension, end-stage renal disease, poor compliance. Patient presented to the hospital with hyperglycemia. Patient found to have elevated blood sugar. Patient required IV insulin. Patient was admitted for t reatment. Hospital Course: Patient presented with hyperglycemia. Patient with history of diabetes mellitus type 2. Hemoglobin A1c elevated greater than 10. Patient required IV insulin. The patient was placed on low-dose Lantus 5 units at night. Patient still had some low blood sugars with this. Blood sugar has now stabilized. Will recommend to continue with regular mild insulin sliding scale. Mild scale to be provided. Recommend to monitor blood sugars at least twice daily. Recommend to maintain blood sugars less than 140 fasting and less than 200 after meals. If blood sugars remain consistently above 200 then patient may need to start Lantus 5 units at bedtime. Patient will need to monitor for hypoglycemia if this is started. This can be done with the help of nephrology or PCP. Recommend to recheck hemoglobin A1c every 3 months to monitor his progress. Compliance with sliding scale for now is recommended. Patient with end-stage renal disease on hemodialysis. Patient has hyperkalemia and hyponatremia. This resolved during the course of his stay. Patient received dialysis. At discharge patient will continue with Renvela 800 mg 3 kunal es a day. Patient will continue with dialysis every Monday, and Monday. Compliance with dialysis will need to be monitored. Future medications will need to be renally dosed. Recommend follow-up with nephrology as directed. Patient with hypertension. Medications were adjusted during the course of his stay. This included the addition of losartan and clonidine. At discharge the p atient will continue with carvedilol 12.5 mg 1 pill twice daily, Norvasc 10 mg daily, losartan 50 mg daily and clonidine patch 0.1 mg every seventh day. Recommend to maintain blood pressure less than 130/80. Further adjustment can be done by nephrology or his PCP. Vital Signs/Physical Exam: Temp Pulse Resp BP Pulse Ox 97.0 F 76 17 152/79 H 98 05/17/21 12:00 05/17/21 12:00 05/17/21 12:00 05/17/21 12:00 05/17/21 12:00 General: Alert, In no apparent distress, Oriented x3, Cooperative HEENT: Atraumatic Neck: Supple Respiratory: Clear to auscultation bilaterally, Normal air movement Cardiovascular: Normal pulses, Regular rate/rhythm Gastrointestinal: Normal bowel sounds, No masses, No rebound, No guarding Musculoskeletal: No erythema, No tenderness, No warmth Integumentary: No tenderness/swelling Neurological: Normal speech, Normal strength at 5/5 x4 extr, Normal tone, Normal affect Laboratory Data at Discharge: WBC 13.00 K/uL (4.3-10.9) H D 05/15/21 11:21 Hgb 10.9 g/dL (13.6-17.9) L 05/15/21 11:21 Hct 32.9 % (39.6-49.0) L 05/15/21 11:21 Plt Count 142 K/uL (152-406) L D 05/15/21 11:21 Sodium 140 mmol/L (136-145) 05/17/21 04:56 Potassium 4.2 mmol/L (3.5-5.1) 05/17/21 04:56 BUN 27 mg/dL (7-18) H 05/17/21 04:56 Creatinine 6.24 mg/dL (0.55-1.3) H* D 05/17/21 04:56 Glucose 84 mg/dL (74-106) 05/17/21 04:56 Phosphorus 4.9 mg/dL (2.5-4.9) D 05/17/21 04:56 Magnesium 2.1 mg/dL (1.8-2.4) 05/15/21 11:21 Total Bilirubin 0.5 mg/dL (0.2-1.0) 05/15/21 11:21 AST 83 U/L (15-37) H 05/15/21 11:21 ALT 113 U/L (12-78) H 05/15/21 11:21 Alkaline Phosphatase 148 U/L (45-117) H 05/15/21 11:21 Home Medications: Calcium Carbonate [Tums Regular*] 500 mg PO AC 04/24/21 Folic Acid/Vit B Complex and C [Judy-Dionne Tablet] 0.8 mg PO DAILY 04/24/21 Insulin Aspart [Novolog Flexpen] See Protocol SQ SEECOM #1 box 04/24/21 Sevelamer Carbonate [Renvela*] 800 mg PO TIDWM 04/24/21 Amlodipine Besylate [Norvasc] 10 mg PO DAILY #30 tablet 05/17/21 Clonidine Patch [Catapres-Tts 1*] 0.1 mg TD EVERY 7TH DAY #4 patch 05/17/21 Losartan Potassium [Cozaar*] 50 mg PO DAILY #30 tablet 05/17/21 carvediloL [Coreg*] 12.5 mg PO BID 6AM 6PM #60 tab 05/17/21 New Medications: Clonidine Patch [Catapres-Tts 1*] 0.1 mg TD EVERY 7TH DAY #4 patch carvediloL [Coreg*] 12.5 mg PO BID 6AM 6PM #60 tab Losartan Potassium [Cozaar*] 50 mg PO DAILY #30 tablet Amlodipine Besylate [Norvasc] 10 mg PO DAILY #30 tablet Physician Discharge Instructions: Patient presented with hyperglycemia. Patient with history of diabetes mellitus type 2. Hemoglobin A1c elevated greater than 10. Patient required IV insulin. The patient was placed on low-dose Lantus 5 units at night. Patient still had some low blood sugars with this. Blood sugar has now stabilized. Will recommend to continue with regular mild insulin sliding scale. Mild scale to be provided. Recommend to monitor blood sugars at least twice daily. Recommend to maintain blood sugars less than 140 fasting and less than 200 after meals. If blood sugars remain consistently above 200 then patient may need to start Lantus 5 units at bedtime. Patient will need to monitor for hypoglycemia if this is started. This can be done with the help of nephrology or PCP. Recommend to recheck hemoglobin A1c every 3 months to monitor his progress. Compliance with sliding scale for now is recommended. Patient with end-stage renal disease on hemodialysis. Patient has hyperkalemia and hyponatremia. This resolved during the course of his stay. Patient received dialysis. At discharge patient will continue with Renvela 800 mg 3 times a day. Patient will continue with dialysis every Monday, and Monday. Compliance with dialysis will need to be monitored. Future medications will need to be renally dosed. Recommend follow-up with nephrology as directed. Patient with hypertension. Medications were adjusted during the course of his stay. This included the addition of losartan and clonidine. At discharge the patient will continue with carvedilol 12.5 mg 1 pill twice daily, Norvasc 10 mg daily, losartan 50 mg daily and clonidine patch 0.1 mg every seventh day. Recommend to maintain blood pressure less than 130/80. Further adjustment can be done by nephrology or his PCP. Diet: ADA Activity: Ad juan Followup: NONE,NONE [Primary Care Provider] - Time spent managing pt's care (in minutes): 55
[2021-05-17 16:40] VITALS: BP 183/90; TEMP 98.1
--- NOTE | 2021-05-18 02:21 | PN ---
Date of Progress Note: 05/17/2021 Chief Complaint: End-stage renal disease. History Of Present Illness: The patient was admitted because of altered mental status. He was found to have hyperglycemia. The patient has a history of noncompliance. He had a workup done to rule out underlying infection. The patient was resumed on insulin. He remains confused, although he answered a few questions. Review of Systems: Denies pain. Denies headache. The patient is legally blind. Physical Examination: Lungs: Clear to auscultation bilaterally. Heart: S1, S2. Abdomen: Soft, benign. Extremities: No edema. Impression: 1. End-stage renal disease. Continue dialysis 3 times per week. 2. Hypertension. The patient was resumed on medications and amlodipine was increased to 10 mg. Monitor blood pressure. Adjust medication. 3. Diabetes mellitus. Continue insulin. 4. HTN, The patient will continue angiotensin-converting enzyme and angiotensin-receptor merari. 5. Secondary hyperparathyroidism. Monitor phosphorus level. The patient is on the Renvela. 6. Diabetes mellitus with hyperglycemia, hyperosmolar state per primary team. ALVA/LUBA Voice ID: [id number] Report ID: [id number] ADRIA
== END 2021-05-17 17:25 | disposition home or self-care (01) | DRG 637 ==
LOC: ER 03:18 → ERHOLD 08:14 → 2ND 05-16 08:02
PROVIDERS: ADMIT Internal Medicine; ATTEND Family Medicine
PROC: 5A1D70Z Performance of Urinary Filtration, Intermittent, Less than 6 Hours Per Day (ICD-10-PCS; principal; 2021-05-15)
DX: E11.65 Type 2 diabetes mellitus with hyperglycemia (principal); N18.6 End stage renal disease; I12.0 Hypertensive chronic kidney disease with stage 5 chronic kidney disease or end stage renal disease; R64 Cachexia; E87.1 Hypo-osmolality and hyponatremia; N25.81 Secondary hyperparathyroidism of renal origin; E11.22 Type 2 diabetes mellitus with diabetic chronic kidney disease; E87.5 Hyperkalemia; Z68.24 Body mass index [BMI] 24.0-24.9, adult; R41.0 Disorientation, unspecified; E11.40 Type 2 diabetes mellitus with diabetic neuropathy, unspecified; E11.21 Type 2 diabetes mellitus with diabetic nephropathy; E11.319 Type 2 diabetes mellitus with unspecified diabetic retinopathy without macular edema; Z99.2 Dependence on renal dialysis; Z91.19 Patient's noncompliance with other medical treatment and regimen; Z20.822 Contact with and (suspected) exposure to COVID-19
CPT/HCPCS: 36415; 70450; 71045; 80048; 80053; 80069; 82010; 82947; 83036; 83735; 84100; 85025; 87040; 90935; 93005; 94760; 96365; 96375; 99285; J0360; J0610; J1815; J3486; J7030; J7799; U0003

== ENCOUNTER 2021-07-18 11:43 | Emergency (ER) | payer BC ==
--- NOTE | 2021-07-18 14:26 | EDPHYS ---
Physician Documentation [facility] Name: Orlando Culp Age: 45 yrs Sex: Male : 1975 Arrival Date: 07/18/2021 Time: 11:47 Bed 5 Private MD: [facility] ED Physician Artie Soler HPI: 07/18 14:21 This 45 yrs old Male presents to ER via Ambulatory with complaints of Finger kdr Injury. 14:21 The patient has not experienced similar symptoms in the past. Chief complaint: Middle kdr finger injury. HPI: Patient states that about a month ago he fell on the ground striking his left middle finger. Since then he had some mild swelling and some abrasions which are slow to heal. Denies any drainage from the finger nor is he having any pain. The home health nurse suggested he get an x-ray and be evaluated for possible infection. 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 - Social history:: Smoking status: Patient denies any tobacco usage or history of. ROS: 14:21 Constitutional: Negative for fever, chills, and weight loss. kdr 14:21 MS/extremity: Positive for There are several small slow healing abrasions on the medial and lateral aspect of the DIP of the middle finger on the left hand. There is no drainage or evidence of abscess. The rest of the exam and review of systems was all negative. Exam: 14:21 Constitutional: This is a well developed, well nourished patient who is awake, alert, kdr and in no acute distress. 14:21 Musculoskeletal/extremity: As noted above the left hand middle finger showed evidence of abrasions and minor swelling to the DIP joint. The patient denies any pain in the finger beyond what he experiences in all the rest of his hand. Vital Signs: 12:05 BP 138 / 74; Pulse 72; Resp 16; Temp 97.0(TE); Pulse Ox 97% on R/A; Weight 72 kg; ss Height 5 ft. 8 in. (172.72 cm); 14:19 BP 166 / 102; Pulse 70; Resp 15; Pulse Ox 99% ; bp 12:05 Body Mass Index 24.13 (72.00 kg, 172.72 cm) MDM: 14:21 Data reviewed: vital signs, nurses notes, radiologic studies. Counseling: I had a kdr detailed discussion with the patient and/or guardian regarding: the historical points, exam findings, and any diagnostic results supporting the discharge/admit diagnosis, radiology results, the need for outpatient follow up. ED course: On review of the plain film. It appeared that there was a small area on the lateral aspect of the middle phalanx at the DIP that could represent a small area of osteomyelitis. Given this finding, patient will be covered with antibiotics and sent for referral to a hand surgeon. Patient was otherwise stable in the ED and required no further intervention. Patient was happy with the care provided and the plan for discharge and follow-up. 14:25 Patient medically screened. kdr 07/18 12:35 Order name: Hand Left 3 View XRAY kdr Administered Medications: 14:19 Drug: Cipro (ciprofloxacin) 500 mg Route: PO; bp Disposition Summary: 07/18/21 14:25 Discharge Ordered Location: Home kdr Problem: an ongoing problem kdr Symptoms: have improved kdr Condition: Stable kdr Diagnosis - Infection of left hand middle finger distally kdr Followup: kdr - With: Sherman Acosta DO - When: 2 - 3 days - Reason: If symptoms return, Further diagnostic work-up, Recheck today's complaints, Continuance of care, Re-evaluation by your physician Discharge Instructions: - Discharge Summary Sheet kdr - Fingertip Infection kdr Forms: - Medication Reconciliation Form kdr - Thank You Letter kdr - Antibiotic Education kdr Prescriptions: - Cipro 500 mg Oral Tablet - take 1 tablet by ORAL route every 12 hours for 7 days; 14 tablet; Refills: 0, kdr Product Selection Permitted Signatures: Dispatcher [employer] EDMS Artie Soler MD MD kdr Jo-Ann Corrigan RN RN Min Ramirez RN RN bp
--- NOTE | 2021-07-18 14:26 | ER ---
Nurse's Notes [facility] Name: Orlando Culp Age: 45 yrs Sex: Male : 1975 Arrival Date: 07/18/2021 Time: 11:47 Bed 5 Private MD: Sherman Acosta Diagnosis: Infection of left hand middle finger distally Presentation: 07/18 12:05 Chief complaint: Patient states: "I hit my finger like a month ago. The dialysis staff ss told me I need to get it checked out because I'm diabetic.". Coronavirus screen: Client denies travel out of the [place] in the last 14 days. Ebola Screen: Patient denies exposure to infectious person. Patient denies travel to an Ebola-affected area in the 21 days before illness onset. Initial Sepsis Screen: Does the patient meet any 2 criteria? No. Patient's initial sepsis screen is negative. Does the patient have a suspected source of infection? No. Patient's initial sepsis screen is negative. Risk Assessment: Do you want to hurt yourself or someone else? Patient reports no desire to harm self or others. Onset of symptoms was May 2021. 12:05 Method Of Arrival: Ambulatory ss 12:05 Acuity: DEMARIO 4 ss Triage Assessment: 12:10 General: Appears in no apparent distress. uncomfortable, Behavior is calm, cooperative, bp appropriate for age. Pain: Pain:. EENT: No deficits noted. Neuro: No deficits noted. Cardiovascular: No deficits noted. Respiratory: No deficits noted. GI: No signs and/or symptoms were reported involving the gastrointestinal system. : No signs and/or symptoms were reported regarding the genitourinary system. Derm: No deficits noted. Musculoskeletal: Reports. Injury Description: Bruise. 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 - Social history:: Smoking status: Patient denies any tobacco usage or history of. Screenin:18 Abuse screen: Denies threats or abuse. Denies injuries from another. Nutritional bp screening: No deficits noted. Tuberculosis screening: No symptoms or risk factors identified. Fall Risk None identified. Assessment: 12:10 General: SEE TRIAGE NOTE. bp 13:18 Reassessment: No changes from previously documented assessment. Patient and/or family bp updated on plan of care and expected duration. Pain level reassessed. XRAY COMPLETE. 14:44 Reassessment: Patient is alert, oriented x 3, equal unlabored respirations, skin aa5 warm/dry/pink. Vital Signs: 12:05 BP 138 / 74; Pulse 72; Resp 16; Temp 97.0(TE); Pulse Ox 97% on R/A; Weight 72 kg; ss Height 5 ft. 8 in. (172.72 cm); 14:19 BP 166 / 102; Pulse 70; Resp 15; Pulse Ox 99% ; bp 12:05 Body Mass Index 24.13 (72.00 kg, 172.72 cm) ED Course: 11:47 Patient arrived in ED. as 11:49 Sherman Acosta DO is Private Physician. as 11:53 Artie Soler MD is Attending Physician. kdr 12:10 Triage completed. ss 12:10 Arm band placed on right wrist. ss 12:27 Min Ramirez, RN is Primary Nurse. bp 13:18 Patient has correct armband on for positive identification. Bed in low position. Call bp light in reach. Side rails up X2. 13:46 Hand Left 3 View XRAY In Process Unspecified. EDMS 14:24 Sherman Acosta DO is Referral Physician. kdr 14:45 No provider procedures requiring assistance completed. Patient did not have IV access aa5 during this emergency room visit. Administered Medications: 14:19 Drug: Cipro (ciprofloxacin) 500 mg Route: PO; bp Outcome: 14:25 Discharge ordered by . kdr 14:44 Discharged to home ambulatory, with a cane, accompanied by family aa5 14:44 Condition: stable 14:44 Discharge instructions given to patient, Instructed on discharge instructions, follow up and referral plans. medication usage, Demonstrated understanding of instructions, follow-up care, medications, Prescriptions given X 1. 14:45 Patient left the ED. aa5 Signatures: Dispatcher [employer] EDNE Artie Soler MD MD kdr Gavi Winchester Audri RN RN aa5 Jo-Ann Corrigan RN RN Min Donato, RN RN bp Corrections: (The following items were deleted from the chart) 13:28 12:10 Pain: bp bp
[2021-07-18 14:51] VITALS: TEMP 97
[2021-07-18 14:52] VITALS: BP 166/102; O2SAT 99
--- NOTE | 2021-07-18 15:03 | RAD REPORT ---
EXAM DESCRIPTION: RAD - Hand Left 3 View - 07/18/2021 1:47 pm CLINICAL HISTORY: PAINhistory with no trauma detailed. Pain is not further localized. COMPARISON: None. FINDINGS: No fracture, dislocation or periosteal reaction noted. IP joint space narrowing is present without spurring or erosive components. Radiocarpal joint space is slightly narrowed. Dense arterial tree calcifications are present. No air or foreign body in the soft tissues. IMPRESSION: Left hand degenerative change, mild in degree, with no acute bone or joint finding seen.
[2021-07-18] MEDS ORDERED: CIPROFLOXACIN HCL 500 MG TAB ONE (15:17)
== END 2021-07-18 14:45 | disposition home or self-care (01) ==
LOC: ER 11:43
DX: L08.9 Local infection of the skin and subcutaneous tissue, unspecified (principal); E11.22 Type 2 diabetes mellitus with diabetic chronic kidney disease; I12.0 Hypertensive chronic kidney disease with stage 5 chronic kidney disease or end stage renal disease; N18.6 End stage renal disease; Z88.0 Allergy status to penicillin; Z88.8 Allergy status to other drugs, medicaments and biological substances
CPT/HCPCS: 99283

== ENCOUNTER 2021-11-11 09:42 | Emergency (ER) | payer BC ==
--- OUTSIDE RECORDS SUMMARY | 2021-11-11 09:56 | XMS REPORT | Continuity of Care Document ---
:1975 Author Organization [facility] t Address [facility] [place] [address] Care Team Providers Name Role Phone PCP, PATIENT DOES NOT HAVE A Primary Care Physician Unavaila Zelalem Washington Attending Clinician Unavailable [id number] Attending Clinician Unavailable Mario Alberto Attending Clinician Unavailable Julio DALTON, Rita Attending Clinician Gary Sweeney MD Attending Clinician Henrik Tierney MD Attending Clinician [phone] HENRIK TIERNEY Attending Clinician Unavailable Nury Ford MD Attending Clinician Jayy Guillen MD Attending Clinician Taylor FRANCOIS Attending Clinician Unavailable Doctor Unassigned, Name Attending Clinician Unavailable Guero Torres MD Attending Clinician Scot DALTON Attending Clinician Singer RICHARD Attending Clinician Rolando DALTON Attending Clinician Denis DALTON Attending Clinician Keith DALTON Attending Clinician Paulo Martin DO Attending Clinician Tasneem MORENO Attending Clinician Amandeep Jara MD Attending Clinician [phone] LUCRECIA RENEE Attending Clinician Unavailable Gil Miller Admitting Clinician Unavailable [id number] Admitting Clinician Unavailable GARY SWEENEY Admitting Clinician Unavailable Scot DALTON Admitting Clinician Rolando DALTON Admitting Clinician Keith DALTON Admitting Clinician Tasneem MORENO Admitting Clinician Amandeep Jara MD Admitting Clinician LUCRECIA RENEE Admitting Clinician Unavailable Payers Payer Name Policy Type Policy Number Effective Date Expiration Date S sandra BCTZ BCTZ [id number] Advance Directives Directive Decision Effective Termination Comments Source Date Date Healthcare Agents on N/A [facility] FileNameRelationshipHealthcare [facility] Agent Medical RelationshipCommunicationEstSelect Medical [facility]iblingHealth Care [phone] (Mobile) [facility] [phone] (Mobile) Problems Condition Condition Condition Status Onset Resolution Last Treating Co mments Source Name Details Category Date Date Treatment Clinician Date Respirator Respirator Disease Active [facility] y failure y failure 2-06 [facility] - 00:00: Medical 00 Center COVID-19 COVID-19 [facility] Volume Volume Disease Active Univers overload overload 02-16 ity of 00:00: [place] 00 Medical [place] CHF CHF Disease Active Univers (congestiv (congestiv 01-23 it y of e heart e heart 00:00: [place] failure) failure) 00 Medica l Branch Hyperglyce Hyperglyce Disease Active U tanja hung hung 01-19 ity of 00:00: [place] 00 Medical Branch Acidosis Acidosis Disease Active Unive rs 4-27 ity of 00:00: [place] [facility] Shock Shock Disease Active Univers 3-04 ity of 00:00: [place] [facility] E44.0 E44.0 Disease Active Univers Moderate Moderate 3-04 ity of protein protein 00:00: [place] calorie calorie 00 Medical malnutriti malnutriti Br anch on on Abnormal Abnormal Disease Active Unive rs chest chest 3-04 ity of x-ray x-ray 00:00: [place] [facility] Hyperkalem Hyperkalem Disease Active U nivers ia, ia, 2-16 ity of diminished diminished 00:[place] renal renal 00 Medical excretion excretion Bran ch Pain, Pain, Disease Active Univers dental dental 2-13 ity of 00:00: [place] [facility] Fluid Fluid Disease Active 2017-09 Univers overload overload 1-27 ity of 00:00: [place] [facility] ESRD (end ESRD (end Disease Active 2017-09 Uni vers stage stage 1-22 ity of renal renal 00:00: [place] disease) disease) 00 Medica l on on Branch dialysis dialysis RENÉ (acute RENÉ (acute Disease Active 2017-09 U tanja kidney kidney 1-20 ity of injury) injury) 00:00: [place] [facility] ESRD on ESRD on Disease Active Univers hemodialys hemodialys 9-22 it y of is is 00:00: [place] [facility] Hyponatrem Hyponatrem Disease Active U nivers ia ia 7-27 ity of 00:00: [place] [facility] Electrolyt Electrolyt Disease Active U nivers e e 7-23 ity of disturbanc disturbanc 00:[place] e [place] 00 Medical [place] High anion High anion Disease Active U nivers gap gap 7-11 ity of metabolic metabolic 00:00: Melinda medina acidosis acidosis 00 Medica l Branch Encounter Encounter Disease Active Uni vers for for 6-29 ity of dialysis dialysis 00:00: [place] [facility] Hyperkalem Hyperkalem Disease Active U nivers ia ia 6-16 ity of 00:00: [place] [facility] Type 2 Type 2 Disease Active Univers diabetes diabetes 6-09 ity of mellitus mellitus 00:00: [place] with with 00 Medical hyperosmol hyperosmol Br anch blaise welsh without without coma, with coma, with long-term long-term current current use of use of insulin insulin Nausea & Nausea & Disease Active 2016-09 Unive rs vomiting vomiting 2-18 ity of 00:00: [place] 00 Medical Branch Anemia, Anemia, Disease Active Univers chronic chronic 8-31 ity of renal renal 00:00: [place] failure failure 00 Medical Branch DKA DKA Disease Active Univers (diabetic (diabetic 8-08 ity of ketoacidos ketoacidos 00:00: Dylan ballesteros) es) 00 Medical Branch Dialysis Dialysis Disease Active Unive rs patient patient 7-13 ity of 00:00: [place] [facility] Uremia Uremia Disease Active Univers 7-13 ity of 00:00: [place] 00 Medical Branch ESRD (end ESRD (end Disease Active Uni vers stage stage 7-13 ity of renal renal 00:00: [place] disease) disease) 00 Medica l Branch Essential Essential Disease Active Uni vers hypertensi hypertensi 7-13 it y of on on 00:00: [place] [address] Medical Branch Type 2 Type 2 Disease Active Univers diabetes diabetes 7-13 ity of mellitus mellitus 00:00: [place] 00 Medical Branch Hemodialys Hemodialys Disease Active U andrewers is status is status 6-16 ity of 00:00: [place] 00 Medical Branch Unspecifie Unspecifie Disease Active U tanja d d 5-23 ity of protein-ca protein-ca 00:00: Dylan perez 00 Medical malnutriti malnutriti Br anch on on Hemodialys Hemodialys Disease Active U andrewers is patient is patient 5-05 it y of 00:00: [place] 00 Medical Branch Acute Acute Disease Active [facility] metabolic metabolic 3-18 Luke [facility] - encephalop encephalop 00:00: Me dical athy athy 00 Center Essential Essential Disease Active [facility] hypertensi hypertensi 3-18 Radha kes - on on 00:00: [facility] 00 Center Diabetic Diabetic Disease Active [facility] ketoacidos ketoacidos 3-18 Radha kes - is with is with 00:00: Medical coma coma 00 Center associated associated with other with other specified specified diabetes diabetes mellitus mellitus DKA DKA Disease Active [facility] (diabetic [...] 3-17 [facility] - 00:00: Medical 00 Center ESRD (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 [facility] - renal renal 00:00: Medical disease) disease) 00 Center on on dialysis dialysis Acute Acute Disease Active Univers hyperkalem hyperkalem 2-16 it y of ia ia 00:00: [place] [facility] Branch ESRD ESRD Disease Active Univers needing needing 6-26 ity of dialysis dialysis 00:00: [place] [facility] Branch Renovascul Renovascul Disease Active U nivers ar ar 6-12 ity of hypertensi hypertensi 00:[place] Medical [place] C. C. Disease Active Univers difficile difficile 6-12 ity of colitis colitis 00:00: [place] [facility] Branch IDDM IDDM Disease Active Univers (insulin (insulin 6-12 ity of dependent dependent 00:[place] diabetes diabetes 00 Medica l mellitus) mellitus) Bran ch Metabolic Metabolic Disease Active Uni vers acidosis acidosis 5-28 ity of 00:00: Medical Branch Angioedema Angioedema Disease Active U nivers 5-03 ity of 00:00: [place] [facility] Facial Facial Disease Active Univers swelling swelling 5-03 ity of 00:: [place] [facility] Altered Altered Disease Active Univers mental mental 5-02 ity of status status 00:00: [place] [facility] Hypothermi Hypothermi Disease Active U nivers a a 4-02 ity of 00:00: [place] [facility] Diabetic Diabetic Disease Active Unive rs ketoacidos ketoacidos 10-18 it y of is is 00:00: [place] 00 [facility] Acute Acute Disease Active Univers mastoiditi mastoiditi 10-18 it y of s with s with 00:00: [place] other other 00 Medical complicati complicati Br anch ons ons Allergies, Adverse Reactions, Alerts Allergy Allergy Status Severity Reaction(s) Onset Inactive Treating Comm ents Source Name Type Date Date Clinician Chicken Propensi Active Diarrhea Unive rs Derived ty to 03-28 ity of adverse 00:00: [place] reaction 00 [facility] s [place] CHICKEN DRUG Active Diarrhea Univers DERIVED INGREDI 03-28 ity of 00:00: [place] 00 [facility] Penicill Drug Active [facility] ins Allergy 3 [facility] - 00:00: Medical 00 [place] PENICILL Allergy Active [facility] INS 3-17 00:00: 00 Prometha Propensi Active Swelling Univ ers zine Hcl ty to 5- ity of adverse 00:00: [place] reaction [facility] PROMETHA DRUG Active Swelling Univer s ZINE HCL INGREDI 5- ity of 00:00: [place] 00 [facility] PROMETHA Allergy Active High Swelling [facility]I [facility] t ZINE HCL 5-03 [facility] - 00:00: Medical 00 [place] Prometha Drug Active Swelling [facility] zine Hcl Allergy 5-03 [facility] - 00:00: Medical 00 [place] Penicill Propensi Active Unknown - hiccups Un katherine ins ty to See comments 10-18 ity of adverse 00:00: [place] reaction 00 [facility] PENICILL Drug Active Unknown-Cmnt Un katherine INS Class 1-31 ity of 00:00: [place] 00 [facility] Social History Social Habit Start Date Stop Date Quantity Comments Source Sex Assigned At [facility] Exposure to Not sure [facility] - SARS-CoV-2 Medical [place] (event) Alcohol intake 2019-06-28 2019-06-28 Current University 00:00:00 00:00:00 non-drinker of [facility] alcohol [place] (finding) Tobacco use and 2019-06-28 2019-06-28 Never used Universit y of exposure 00:00:00 00:00:00 [facility] Smoking Status Start Date Stop Date Source Never smoker [facility] Medications Ordered Filled Start Stop Current Ordering Indication Dosage Frequency Signature Comments Components Source Medication Medication Date Date Medication? Clinician (SIG) Name Name Marcia 2021- Yes 6mg QD Take [address] [facility] [address] ne 211-06 tablet (6 [facility] - (DECADRON) 00:00: 23:59 mg total) M edical 6 MG tablet 00 :00 by mouth Cent er daily for 10 days. amLODIPine Yes 10mg QD Take [address] (NORVASC) 2-08 by mouth [facility] - 10 MG 21:50: daily. Medical tablet 40 Center aspirin 81 0 Yes 81mg QD Take [address] MG chewable 2-08 by mouth Luke s - tablet 21:50: daily. Medical 40 Center calcium Yes 1{tbl} Q.[id number] Take [address] [facility] carbonate 2-08 [id number] tablet by [facility] - (TUMS) 500 21:50: 3D mouth 3 Medi maddie mg chewable 40 (three) Cente r tablet times daily. doxazosin 0 Yes 2mg QD Take [address] (CARDURA) 2 2-08 by mouth Luke s - MG tablet 21:50: nightly. Medi maddie 40 Center famotidine Yes 20mg Q.5D Take [address] (PEPCID) 20 2-08 by mouth 2 Radha kes - MG tablet 21:50: (two) Medical 40 times Center daily. meclizine Yes 25mg QD Take [address] (ANTIVERT) 2-08 by mouth [facility] - 25 MG 21:50: daily. Medical tablet 40 Center nitroglycer Yes .4mg Place 0.[address] in 2-08 mg under [facility] - (NITROSTAT) 21:50: the tongue Medical 0.4 MG SL 40 every 5 Center tablet (five) minutes as needed for Chest pain Put 1 pill under tongue every 5min as needed for chest pain.No more than 3 doses in 15min.Call 911 if pain is unrelieved 5min after 1st dose . ondansetron 0 Yes 4mg Take [address] (ZOFRAN) 4 2-08 by mouth 3 John es - MG tablet 21:50: (three) Medic al 40 times Center daily as needed for Nausea. b complex Yes 1{tbl} QD Take [address] [address] vitamins 2-08 tablet by [facility]ukes - tablet 21:50: mouth Medical 40 daily. Center atorvastati Yes [address] n (LIPITOR) 2-08 Orally [facility] - 20 MG 21:50: Once a day Medica l tablet 40 for 90 Center days insulin Yes Inject 12 [facility] degludec 2-08 units [facility] - (Tresiba 21:50: Subcutaneo Med ical FlexTouch 40 us Once a Cente r U-100) 100 day for 90 unit/mL (3 days mL) InPn metoclopram Yes [address] markos 2-08 before [facility] - (REGLAN) 5 21:50: meals Medica l MG tablet 40 Orally Center Three times a day for 90 days omeprazole Yes [address] (PriLOSEC) 2-08 30 minutes John es - 20 MG 21:50: before Medical capsule 40 morning Center meal Orally Once a day for 90 days dextrometho 2021- Yes 1{tbl} Take [address] rphan-guaif 10-26 tablet by Radha torres 00:00: 23:59 mouth 2 Medical (MuciNEX 00 :00 (two) Center DM) 30-600 times mg per 12 daily as hr tablet needed for up to 10 days. levoFLOXaci 2021- Yes 500mg QD Take [address] n 10-26- tablet [facility] - (LEVAQUIN) 00:00: 23:59 (500 mg Med ical 500 MG 00 :00 total) by Center tablet mouth daily for 5 days. amLODIPine 2018-09 Yes [id number] 5mg Take 1 U nivers 5 mg tablet 0-14 tablet by ity of 00:00: mouth [place] 00 daily. Medical Branch atorvastati 2018-09 Yes [id number] 20mg Take 1 Univers n 20 mg 0-14 tablet by ity of tablet 00:00: mouth at [place] 00 bedtime. Medical Branch carvedilol 2018-09 Yes [id number] 12.5mg Take 1 Univers 12.5 mg 0-14 tablet by ity of tablet 00:00: mouth 2 [place] 00 (two) Medical times Branch daily with meals. insulin NPH 2018-09 Yes [id number] 7U inject 7 Univers and regular 0-14 Units ity of human 70-30 00:00: under the [place] 100 unit/mL 00 skin 2 Medica l (70-30) (two) Branch injection times daily before breakfast and dinner. [employer] sodium 2018-09 Yes [id number] 15g Take 60 mL U nivers polystyrene 0-14 by mouth ity of sulfonate 00:00: every [place] 15 gram/60 00 other day. Med ical mL Branch suspension amLODIPine 2018-09 Yes [id number] 5mg Take 1 U nivers 5 mg tablet 0-14 tablet by ity of 00:00: mouth [place] 00 daily. Medical Branch atorvastati 2018-09 Yes [id number] 20mg Take 1 Univers n 20 mg 0-14 tablet by ity of tablet 00:00: mouth at [place] 00 bedtime. Medical Branch carvedilol 2018-09 Yes [id number] 12.5mg Take 1 Univers 12.5 mg 0-14 tablet by ity of tablet 00:00: mouth 2 [place] 00 (two) Medical times Branch daily with meals. insulin NPH 2018-09 Yes [id number] 7U inject 7 Univers and regular 0-14 Units ity of human 70-30 00:00: under the [place] 100 unit/mL 00 skin 2 Medica l (70-30) (two) Branch injection times daily before breakfast and dinner. [employer] sodium 2018-09 Yes [id number] 15g Take 60 mL U nivers polystyrene 0-14 by mouth ity of sulfonate 00:00: every [place] 15 gram/60 00 other day. Med ical mL Branch suspension heparin 2019- No 1000U 1,000 Univers (PF) 1,000 06-06- Units, ity of unit/mL 17:30: 18:40 Slow IV [place] injection 00 :00 Push, Medical 1,000 Units ONCE, 1 Branc h dose, [place] 06/06/19 at 1230, Routine amLODIPine Yes 5mg 5 mg, Univer s (NORVASC) 06-06 Oral, ity of tablet 5 mg 14:00: DAILY, [place] 00 First dose Medical on [place] Branch 06/06/19 at 0900, Until Discontinu ed, Routine aspirin 2018- Yes 81mg 81 mg, Univers chewable 06-06 Oral, QAM ity of tablet 81 13:00: WITH [place] mg 00 BREAKFAST, Medical First dose Branch on [place] 06/06/19 at 0800, Until Discontinu ed, Routine atorvastati 2018- Yes 20mg 20 mg, Univ ers n (LIPITOR) 06-06 Oral, QHS, it y of tablet 20 02:00: First dose [place] mg 00 on Mon Medical 06/05/19 at Branch 2100, Until Discontinu ed, Routine heparin 2018- Yes 5000U 5,000 Univers injection 06-06 Units, ity of 5,000 Units 01:00: Subcutaneo [place] 00 us, Q12H, Medical First dose Branch on Mon06/05/19 at 2000, Until Discontinu ed, Routine glipiZIDE 5 2018-0 Yes [id number] 2.5mg Take 0.5 Univers mg tablet 06-06 tablets by ity of 00:00: mouth [place] 00 daily with Medical breakfast. Branch Monitor glucose carefully as this medication can drop your blood sugars too much. Take insulin with this medication with careful monitoring carvedilol Yes 12.5mg 12.5 mg, U nivers (COREG) 06-05 Oral, BID ity of tablet 12.5 22:00: MEALS, [place] mg 00 First dose Medical on Mon Branch 06/05/19 at 1700, Until Discontinu ed, Routine insulin NPH 2018-0 Yes 7U 7 Units, Un katherine and regular 06-05 Subcutaneo it y of human 70-30 21:30: us, BIDAC, [place] (HUMULIN 00 First dose Medic al 70-30 U-100 on Mon Branch INSULIN) 06/05/19 at 100 unit/mL 1630, (70-30) Until injection 7 Discontinu Units ed, Routine epoetin 2019- No [id number] 10,000 Unive rs bin 06-05- Units, ity of (PROCRIT) 20:15: 21:42 Slow IV [place] injection 00 :00 Push, Medical 10,000 ONCE, 1 Branch Units dose, 06/05/19 at 1515, ADONAY sevelamer 2018- Yes 800mg 800 mg, Univ ers (RENVELA) 06-05 Oral, TID ity o f tablet 800 17:00: MEALS, [place] mg 00 First dose Medical on Mon Branch 06/05/19 at 1200, Until Discontinu ed, Routine Sliding 2018- Yes Subcutaneo Univ ers Scale 06-05 us, TID ity of Insulin - 17:00: MEALS+HS, [place] as Aspart 00 First dose Medical (NOVOLOG) + on Mon Branch Fsbg 06/05/19 at Testing 1200, Until Discontinu ed, Routine heparin 2019- No 1000U 1,000 Univers (PF) 1,000 06-0518 Units, ity of unit/mL 15:45: 22:51 Slow IV [place] injection 00 :00 Push, Medical 1,000 Units ONCE, 1 Branc h dose, 06/05/19 at 1045, Routine glucagon 2018- Yes 1mg 1 mg, Univers (GLUCAGEN 06-05 Intramuscu ity of DIAGNOSTIC 15:01: lar, PRN, [place] KIT) 48 Starting Medical injection 1 Wed Branch mg 06/05/19 at 1001, Until Discontinu ed, ADONAY, Blood Glucose < or = 70 mg/dL and patient is unable to swallow or has mental changes. dextrose 50 2019- Yes 25mL 25 mL, Univ ers % in water 06-05 Slow IV ity of (D50W) 15:01: Push, PRN, [place] injection 47 Starting Medica l 25 mL Wed Branch 06/05/19 at 1001, Until Discontinu ed, ADONAY, Blood Glucose < or = 70 mg/dL and patient is unable to swallow or has mental status changes. ondansetron 2018- Yes 4mg 4 mg, Slow Univers (ZOFRAN 06-05 IV Push, ity of (PF)) 15:00: Q6HPRN, [place] injection 4 53 Starting Medi maddie mg Wed Branch 06/05/19 at 1000, Until Discontinu ed, Routine, Nausea and Vomiting (N/V) heparin 2019- No 1000U 1,000 Univers (PF) 1,000 9- 09-14 Units, ity of unit/mL 15:30: 20:39 Slow IV [place] injection 00 :00 Push, Medical 1,000 Units ONCE, 1 Branc h dose, 06/01/19 at 1030, Routine traMADol 2019- No 50mg 50 mg, Univer s (ULTRAM) 06-01 Oral, ity of tablet 50 13:41: 13:40 Q8HPRN, [place] mg 10 :10 Starting Medical Sat Branch 06/01/19 at 0841, Until 06/03/19 at 0840, Routine, Pain (scale 4-6) acetaminoph Yes 650mg 650 mg, Un katherine en 06-01 Oral, ity of (TYLENOL) 13:41: Q6HPRN, [place] tablet 650 08 Starting Medic al mg Sat Branch 06/01/19 at 0841, Until Discontinu ed, Routine, Pain (scale 1-3) insulin NPH Yes 5U 5 Units, Un katherine and regular 05-28 Subcutaneo it y of human 22:00: [place], [place] (HUMULIN 00 QAM+PM, Medical 70-30 U-100 First dose Br anch INSULIN) on Tue 100 unit/mL 05/28/19 at (70-30) 1700, injection 5 Until Units Discontinu ed, Routine heparin 2019- No 1000U 1,000 Univers (PF) 1,000 05-28 Units, ity of unit/mL 19:45: 23:55 Slow IV [place] injection 00 :00 Push, Medical 1,000 Units ONCE, 1 Branc h dose, [facility] 05/28/19 at 1445, Routine Sliding Yes Subcutaneo Univ ers Scale 9-10 us, TID ity of Insulin - 17:00: MEALS+HS, [place] Lispro 00 First dose Medical (HumaLOG) + on Tue Branch Fsbg 05/28/19 at Testing 1200, Until Discontinu ed, Routine insulin NPH 2019- No 7U 7 Units, U nivers and regular 05-2810 Subcutaneo i ty of human 16:45: 18:20 [place], [place] (HUMULIN 00 :14 QAM+PM, Medical 70-30 U-100 First dose Br anch INSULIN) on Tue 100 unit/mL 05/28/19 at (70-30) 1145, injection 7 Until Units Discontinu ed, Routine acetaminoph 2019-0 Yes 650mg 650 mg, Un katherine en 05-28 Oral, ity of (TYLENOL) 16:38: Q6HPRN, [place] tablet 650 45 Starting Medic al mg Tue Branch 05/28/19 at 1138, Until Discontinu ed, Routine, Pain (scale 1-3) glucagon 2019-0 Yes 1mg 1 mg, Univers (GLUCAGEN 05-28 Intramuscu ity of DIAGNOSTIC 16:38: [place], PRN, [place] KIT) 19 Starting Medical injection 1 Tue Branch mg 05/28/19 at 1138, Until Discontinu ed, ADONAY, Blood Glucose < or = 70 mg/dL and patient is unable to swallow or has mental changes. dextrose 50 2019-0 Yes 25mL 25 mL, Univ ers % in water 05-28 Slow IV ity of (D50W) 16:38: Push, PRN, [place] injection 19 Starting Medica l 25 mL Tue Branch 05/28/19 at 1138, Until Discontinu ed, ADONAY, Blood Glucose < or = 70 mg/dL and patient is unable to swallow or has mental status changes. sodium 2019-0 Yes 15g 15 g, Univers polystyrene -07 Oral, Q ity o f sulfonate 14:00: OTHERDAY, [place] as (KAYEXALATE 00 First dose Me dical ) on Sat Branch suspension 05/25/19 at 15 g 0900, Until Discontinu ed, Routine amLODIPine 2019-0 Yes 5mg 5 mg, Univer s (NORVASC) - Oral, ity of tablet 5 mg 14:00: DAILY, [place] 00 First dose Medical on Sat Branch 05/25/19 at 0900, Until Discontinu ed, Routine glipiZIDE 2019-0 Yes 2.5mg 2.5 mg, Univ ers (GLUCOTROL) - Oral, QAM ity of tablet 2.5 13:00: WITH [place] mg 00 BREAKFAST, Medical First dose Branch on 05/25/19 at 0800, Until Discontinu ed, Routine aspirin 2019-0 Yes 81mg 81 mg, Univers chewable - Oral, QAM ity of tablet 81 13:00: WITH [place] mg 00 BREAKFAST, Medical First dose Branch on 05/25/19 at 0800, Until Discontinu ed, Routine atorvastati 2019-0 Yes 20mg 20 mg, Univ ers n (LIPITOR) 05-25 Oral, QHS, it y of tablet 20 02:00: First dose [place] mg 00 on Fri Medical 05/24/19 at Branch 2100, Until Discontinu ed, Routine carvedilol 2019-0 Yes 12.5mg 12.5 mg, U nivers (COREG) 05-24 Oral, BID ity of tablet 12.5 22:00: MEALS, [place] mg 00 First dose Medical on Fri Branch 05/24/19 at 1700, Until Discontinu ed, Routine insulin NPH 2018-0 Yes 7U 7 Units, Un katherine and regular 05-24 Subcutaneo it y of human 70-30 21:30: us, BIDAC, [place] (HUMULIN 00 First dose Medic al 70-30 U-100 on Fri Branch INSULIN) 05/24/19 at 100 unit/mL 1630, (70-30) Until injection 7 Discontinu Units ed, Routine Sliding 2018- Yes Subcutaneo Univ ers Scale 05-24 us, TID ity of Insulin - 17:00: MEALS+HS, [place] Aspart 00 First dose Medical (NOVOLOG) + on Fri Branch Fsbg 05/24/19 at Testing 1200, Until Discontinu ed, Routine sevelamer 2019-0 Yes 800mg 800 mg, Univ ers (RENVELA) 05-24 Oral, TID ity o f tablet 800 17:00: MEALS, [place] mg 00 First dose Medical on Fri Branch 05/24/19 at 1200, Until Discontinu ed, Routine glucagon 2019-0 Yes 1mg 1 mg, Univers (GLUCAGEN 05-24 Intramuscu ity of DIAGNOSTIC 16:47: [place], PRN, [place] KIT) 22 Starting Medical injection 1 05/24/19 Br anch mg at 1147, Until Discontinu ed, ADONAY, Blood Glucose < or = 70 mg/dL and patient is unable to swallow or has mental changes. dextrose 50 2019-0 Yes 25mL 25 mL, Univ ers % in water 05-24 Slow IV ity of (D50W) 16:47: Push, PRN, [place] injection 22 Starting Medica l 25 mL 05/24/19 Branch at 1147, Until Discontinu ed, ADONAY, Blood Glucose < or = 70 mg/dL and patient is unable to swallow or has mental status changes. ondansetron 2019-0 Yes 4mg 4 mg, Slow Univers (ZOFRAN 05-24 IV Push, ity of (PF)) 15:40: Q6HPRN, [place] injection 4 46 Starting Medi maddie mg Mon05/24/19 Branch at 1040, Until Discontinu ed, Routine, Nausea and Vomiting (N/V) acetaminoph 2019-0 Yes 650mg 650 mg, Un katherine en 05-24 Oral, ity of (TYLENOL) 15:40: Q6HPRN, [place] tablet 650 39 Starting Medic al mg Mon05/24/19 Branch at 1040, Until Discontinu ed, Routine, Pain (scale 1-3) albuterol 2018-0 2019- No 10mg 10 mg, Unive rs (PROVENTIL) 05-24 Inhalation i ty of 2.5 mg /3 15:00: 13:51 , DIALYSIS [place] mL (0.083 00 :00 ONCE - PT Medic al %) ROOM, 1 Branch nebulizer dose, Mon solution 10 05/24/19 at mg 1000, Routine sodium 2019-0 Yes 15g 15 g, Univers polystyrene 05-21 Oral, Q ity o f sulfonate 14:00: OTHERDAY, [place] (KAYEXALATE 00 First dose Me dical ) on Mon suspension 05/21/19 at 15 g 0900, Until Discontinu ed, Routine amLODIPine 2019-0 Yes 5mg 5 mg, Univer s (NORVASC) 05-21 Oral, ity of tablet 5 mg 14:00: DAILY, [place] 00 First dose Medical on Mon Branch 05/21/19 at 0900, Until Discontinu ed, Routine glipiZIDE 2019-0 Yes 2.5mg 2.5 mg, Univ ers (GLUCOTROL) 05-21 Oral, QAM ity of tablet 2.5 13:00: WITH [place] mg 00 BREAKFAST, Medical First dose Branch on Mon05/21/19 at 0800, Until Discontinu ed, Routine aspirin 2019-0 Yes 81mg 81 mg, [facility] chewable 05-21 Oral, QAM ity of tablet 81 13:00: WITH [place] mg 00 BREAKFAST, Medical First dose Branch on Mon05/21/19 at 0800, Until Discontinu ed, Routine atorvastati 2018-0 Yes 20mg 20 mg, [facility] ers n (LIPITOR) 05-21 Oral, QHS, it y of tablet 20 02:00: First dose [place] mg [address] [facility] 05/20/19 at Branch 2100, Until Discontinu ed, Routine carvedilol 2019-0 Yes 12.5mg 12.5 mg, U nivers (COREG) 05-20 Oral, BID ity of tablet 12.5 22:00: MEALS, [place] mg 00 First dose Medical on [facility] Branch 05/20/19 at 1700, Until Discontinu ed, Routine insulin NPH 2018-0 Yes 7U 7 Units, Un katherine and regular 05-20 Subcutaneo it y of human 70-30 21:30: us, BIDAC, [place] (HUMULIN 00 First dose Medic al 70-30 U-100 on Mon [place] INSULIN) 05/20/19 at 100 unit/mL 1630, (70-30) Until injection 7 Discontinu Units ed, Routine heparin 2018-0 2019- No 5000U DIALYSIS [facility] ers (1,000 05-20 ONCE - JUANJO ity of unit/mL, 10 20:15: 22:49 DSU, 1 [place] mL vial) 00 :00 dose, Mon Medica l 05/20/19 at Branch 1515, Routine Sliding 2018-0 Yes Subcutaneo [facility] ers Scale 05-20 us, TID ity of Insulin - 17:00: MEALS+HS, [place] Aspart 00 First dose Medical (NOVOLOG) + on [facility] Fsbg 05/20/19 at Testing 1200, Until Discontinu ed, Routine sevelamer 2019-0 Yes 800mg 800 mg, [facility] ers (RENVELA) 05-20 Oral, TID ity o f tablet 800 17:00: MEALS, [place] mg 00 First dose Medical on [facility] Branch 05/20/19 at 1200, Until Discontinu ed, Routine ondansetron 2018-0 Yes 4mg 4 mg, Slow Univers (ZOFRAN 05-20 IV Push, ity of (PF)) 16:12: Q6HPRN, [place] injection 4 19 Starting Medi maddie mg [facility] 05/20/19 Branch at 1112, Until Discontinu ed, Routine, Nausea and Vomiting (N/V) acetaminoph 2018- Yes 650mg 650 mg, Un katherine en 05-20 Oral, ity of (TYLENOL) 16:11: Q6HPRN, [place] tablet 650 58 Starting Medic al mg 05/20/19 Branch at 1111, Until Discontinu ed, Routine, Pain (scale 1-3) Sliding 2018- Yes Subcutaneo Univ ers Scale 05-15 us, TID ity of Insulin - 17:00: MEALS+HS, [place] Lispro 00 First dose Medical (HumaLOG) + on Wed Branch Fsbg 05/15/19 at Testing 1200, Until Discontinu ed, Routine heparin 2019- No 5000U 5,000 [facility] 1,000 05-15 Units, ity of unit/mL 16:45: 20:52 Slow IV [place] injection 00 :00 Push, Medical 5,000 Units DIALYSIS Bran ch ONCE - PT ROOM, 1 dose, 05/15/19 at 1145, Routine glucagon Yes 1mg 1 mg, Univers (GLUCAGEN 05-15 Intramuscu ity of DIAGNOSTIC 13:25: lar, PRN, [place] KIT) 13 Starting Medical injection 1 Wed Branch mg 05/15/19 at 0825, Until Discontinu ed, ADONAY, Blood Glucose < or = 70 mg/dL and patient is unable to swallow or has mental changes. dextrose 50 Yes 25mL 25 mL, Univ ers % in water 05-15 Slow IV ity of (D50W) 13:25: Push, PRN, [place] injection 13 Starting Medica l 25 mL Wed Branch 05/15/19 at 0825, Until Discontinu ed, ADONAY, Blood Glucose < or = 70 mg/dL and patient is unable to swallow or has mental status changes. heparin 2019- No 5000U 5,000 [facility] 1,000 05-11 Units, ity of unit/mL 14:15: 18:10 Slow IV [place] injection 00 :00 Push, Medical 5,000 Units DIALYSIS Bran ch ONCE - JUANJO DSU, 1 dose, 05/11/19 at 0915, Routine NaCl 0.9% 2019- No 10mL 10 mL, Unive rs (NS) 8-24 08-24 Slow IV ity of injection 14:15: 14:15 Push, [place] 10 mL 00 :00 DIALYSIS Medical ONCE - JUANJO Branch DSU, 1 dose, 05/11/19 at 0915, Routine hydralAZINE 2018-0 Yes 10mg 10 mg, Univ ers (APRESOLINE 05-10 Slow IV ity o f ) injection 22:30: Push, [place] 10 mg 00 Q4HPRN, Medical Starting Branch Mon05/10/19 at 1730, Until Discontinu ed, Routine, SBP > 180, DBP > 110
Ind ication: Hypertensi ve Emergency NaCl 0.9% 2018- 2019- No 500[facility] 05-10 mL/hr, IV ity of infusion 18:45: 22:30 Infusion, [place] 500 mL 00 :20 CONTINUOUS Medical , Starting Branch Mon05/10/19 at 1345, Until Mon05/10/19 at 1730, Routine, DSU Pre-op calcium 2018-0 Yes 667mg 667 mg, Univer s acetate 05-10 Oral, TID ity of (PHOSLO) 17:00: MEALS, [place] capsule 667 00 First dose Me dical mg on Mon Branch 05/10/19 at 1200, Until Discontinu ed, Routine epoetin 2018-0 2019- No [id number] 10,000 Unive rs bin 05-10 Units, ity of (PROCRIT) 16:30: 22:37 Subcutaneo [place] injection 00 :00 us, ONCE Medica l 10,000 NOW, 1 Branch Units dose, Mon05/10/19 at 1130, Routine
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 : KAREN NVAAS calcitriol 2019-0 Yes .5ug 0.5 mcg, Uni vers (ROCALTROL) 05-10 Oral, ity of capsule 0.5 15:30: DAILY, [place] mcg 00 First dose Medical on Mon Branch 05/10/19 at 1030, Until Discontinu ed, Routine amLODIPine 2018-0 Yes 5mg 5 mg, Univer s (NORVASC) 05-10 Oral, ity of tablet 5 mg 14:00: DAILY, [place] 00 First dose Medical on Mon Branch 05/10/19 at 0900, Until Discontinu ed, Routine carvedilol 2018- Yes 12.5mg 12.5 mg, U nivers (COREG) 05-09 Oral, BID ity of tablet 12.5 22:00: MEALS, [place] mg 00 First dose Medical on [place] Branch 05/09/19 at 1700, Until Discontinu ed, Routine insulin Yes Subcutaneo Univ ers lispro 05-09 , TID ity of (human) 17:00: MEALS+, [place] (HumaLOG 00 First dose Medic al U-100) on [place] Branch injection 05/09/19 at 1200, Until Discontinu ed, Routine alteplase 2019- No 2mg 2 mg, Univer s (CATHFLO 05-09 INTRA-CATH ity of ACTIVASE) 16:30: 14:55 [place], [place] injection 2 00 :00 ONCE, 1 Medic al mg dose, [place] Branch 05/09/19 at 1130, Routine
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
Reaso n for Non-Formul jasmin Use: SPECIFIC INDICATION FOR NONFORMULA RY PRODUCT heparin 2019- No 5000U 5,000 [facility] 1,000 05-09 Units, ity of unit/mL 15:30: 21:04 Slow IV [place] injection 00 :00 Push, Medical 5,000 Units DIALYSIS Bran ch ONCE - PT ROOM, 1 dose, [place] 05/09/19 at 1030, Routine insulin NPH 2018- Yes 7U 7 Units, Un katherine and regular 05-09 Subcutaneo it y of human 70-30 14:30: , [place] (HUMULIN 00 QAM+PM, Medical 70-30 U-100 First dose Br anch INSULIN) on [place] 100 unit/mL 05/09/19 at (70-30) 0930, injection 7 Until Units Discontinu ed, Routine glucagon Yes 1mg 1 mg, Univers (GLUCAGEN 05-09 Intramuscu ity of DIAGNOSTIC 14:20: lar, PRN, [place] KIT) 24 Starting Medical injection 1 [place] Branch mg 05/09/19 at 0920, Until Discontinu ed, ADONAY, Blood Glucose < or = 70 mg/dL and patient is unable to swallow or has mental changes. dextrose 50 Yes 25mL 25 mL, Univ ers % in water 05-09 Slow IV ity of (D50W) 14:20: Push, PRN, [place] injection 24 Starting Medica l 25 mL [place] Branch 05/09/19 at 0920, Until Discontinu ed, ADNOAY, Blood Glucose < or = 70 mg/dL and patient is unable to swallow or has mental status changes. acetaminoph Yes 650mg 650 mg, Un katherine en 05-09 Oral, ity of (TYLENOL) 14:20: Q6HPRN, [place] tablet 650 09 Starting Medic al mg [place] Branch 05/09/19 at 0920, Until Discontinu ed, Routine, Pain (scale 1-3) patiromer 2019- No [id number] 1{packa Take 1 Univers calcium 05-07 ge} Package by itrey o f sorbitex 00:00: 04:59 mouth once [place] (VELTASSA) 00 :00 now for 1 Medi maddie 8.4 gram dose. Branch PwPk calcium Yes 1334mg 1,334 mg, Uni vers acetate 05-03 Oral, TID ity of (PHOSLO) 17:00: MEALS, [place] capsule 00 First dose Medica l 1,334 mg on Mon Branch 05/03/19 at 1200, Until Discontinu ed, Routine epoetin 2019- No [id number] 10,000 Unive rs bin 05-03 Units, ity of (PROCRIT) 16:00: 00:37 Subcutaneo [place] injection 00 :00 us, ONCE, Medic al 10,000 1 dose, Branch Units 05/03/19 at 1100, Routine
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 : KAREN NAVAS heparin 2019- No 5000U 5,000 Univers 1,000 05-03 Units, ity of unit/mL 14:45: 23:25 Slow IV [place] injection 00 :00 Push, Medical 5,000 Units DIALYSIS Bran ch ONCE - PT ROOM, 1 dose, Mon05/03/19 at 0945, Routine NaCl 0.9% 2019- No 10mL 10 mL, Unive rs (NS) 805-03 Slow IV ity of injection 14:45: 18:10 Push, [place] 10 mL 00 :00 DIALYSIS Medical ONCE - PT Branch ROOM, 1 dose, Mon05/03/19 at 0945, Routine acetaminoph Yes 650mg 650 mg, Un katherine en 05-03 Oral, ity of (TYLENOL) 14:28: Q6HPRN, [place] tablet 650 20 Starting Medic al mg Mon Branch 05/03/19 at 0928, Until Discontinu ed, Routine, Pain (scale 1-3) calcitriol Yes .5ug 0.5 mcg, Uni vers (ROCALTROL) 05-03 Oral, ity of capsule 0.5 14:00: DAILY, [place] mcg 00 First dose Medical on Mon05/03/19 at 0900, Until Discontinu ed, Routine ondansetron 2019- No 4mg 4 mg, Slow Univers (ZOFRAN 05-03 IV Push, ity of (PF)) 13:40: 04:59 DIALYSIS [place] injection 4 57 :00 ONCE PRN - Me dical mg PT ROOM, 1 Branch dose, Starting Mon05/03/19 at 0840, Until Mon05/03/19 at 2359, Routine, Nausea and Vomiting (N/V) diphenhydrA 2019- No 12.5mg 12.5 mg, Univers MINE 05-03 Slow IV ity of (BENADRYL) 13:40: 04:59 Push, [place] injection 45 :00 DIALYSIS Medica l 12.5 mg ONCE PRN - Branch PT ROOM, 1 dose, Starting Mon05/03/19 at 0840, Until Mon05/03/19 at 2359, Routine, Itching heparin 2019- No 5000U 5,000 Univers 1,000 04-29 Units, ity of unit/mL 14:15: 19:10 Slow IV [place] injection 00 :00 Push, Medical 5,000 Units DIALYSIS Bran ch ONCE - JUAN[place] DSU, 1 dose, Mon04/29/19 at 0915, Routine ondansetron 2019- No 4mg 4 mg, Slow Univers (ZOFRAN 04-29 IV Push, ity of (PF)) 14:10: 04:59 DIALYSIS [place] injection 4 23 :00 ONCE PRN - Me dical mg JUANJO DSU, 1 Branch dose, Starting 04/29/19 at 0910, Until 04/29/19 at 2359, Routine, Nausea and Vomiting (N/V) diphenhydrA 2019-0 2019- No 12.5mg 12.5 mg, Univers MINE 04-29 0813 Slow IV ity of (BENADRYL) 14:10: 04:59 Push, [place] injection 22 :00 DIALYSIS Medica l 12.5 mg ONCE PRN - Branch JUANJO DSU, 1 dose, Starting 04/29/19 at 0910, Until 04/29/19 at 2359, Routine, Itching Sliding 2019-0 Yes Subcutaneo Univ ers Scale 04-29 us, AC+HS, ity of Insulin-Reg 12:30: First dose [place] ular + Fsbg 00 on Mon Medica l Testing 04/29/19 at Branch 0730, Until Discontinu ed, Routine glucagon 2019-0 Yes 1mg 1 mg, Univers (GLUCAGEN 04-29 Intramuscu ity of DIAGNOSTIC 12:06: lar, PRN, [place] KIT) 22 Starting Medical injection 1 Mon Branch mg 04/29/19 at 0706, Until Discontinu ed, ADONAY, Blood Glucose < or = 70 mg/dL and patient is unable to swallow or has mental changes. dextrose 50 2019-0 Yes 25mL 25 mL, Univ ers % in water 04-29 Slow IV ity of (D50W) 12:06: Push, PRN, [place] injection 22 Starting Medica l 25 mL [facility] Branch 04/29/19 at 0706, Until Discontinu ed, ADONAY, Blood Glucose < or = 70 mg/dL and patient is unable to swallow or has mental status changes. ondansetron 2019-0 Yes 4mg 4 mg, Slow Univers (ZOFRAN 04-29 IV Push, ity of (PF)) 12:00: Q6HPRN[place], [place] injection 4 24 Starting Medi maddie mg Mon Branch 04/29/19 at 0700, Until Discontinu ed, Routine, Nausea and Vomiting (N/V) acetaminoph 2019-0 Yes 650mg 650 mg, Un katherine en 812 Oral, ity of (TYLENOL) 12:00: Q6HPRN, [place] tablet 650 16 Starting Medic al mg Mon Branch 04/29/19 at 0700, Until Discontinu ed, Routine, Pain (scale 1-3) amLODIPine 2019-0 Yes 5mg 5 mg, Univer s (NORVASC) 8 Oral, ity of tablet 5 mg 14:00: DAILY, [place] 00 First dose Medical on Mon04/25/19 at 0900, Until Discontinu ed, Routine aspirin 2019-0 Yes 81mg 81 mg, Univers chewable 04-25 Oral, QAM ity of tablet 81 13:00: WITH [place] mg 00 BREAKFAST, Medical First dose Branch on Mon04/25/19 at 0800, Until Discontinu ed, Routine atorvastati 2019-0 Yes 20mg 20 mg, Univ ers n (LIPITOR) 8 Oral, QHS, it y of tablet 20 02:00: First dose [place] mg 00 on Mon Medical 04/24/19 at Branch 2100, Until Discontinu ed, Routine docusate 2019-0 Yes 100mg 100 mg, Unive rs (COLACE) 8 Oral, BID, ity o f capsule 100 01:00: First dose [place] mg 00 on Mon Medical 04/24/19 at Branch 2000, Until Discontinu ed, Routine heparin 2019-0 Yes 5000U 5,000 Univers injection 04-25 Units, ity of 5,000 Units 01:00: Subcutaneo [place] 00 us, Q12H, Medical First dose Branch on Mon04/24/19 at 2000, Until Discontinu ed, Routine carvedilol 2019-0 Yes 12.5mg 12.5 mg, U tanja (COREG) 8 Oral, BID ity of tablet 12.5 22:00: MEALS, [place] mg 00 First dose Medical on Mon Branch 04/24/19 at 1700, Until Discontinu ed, Routine sevelamer 2019-0 Yes 800mg 800 mg, Univ ers (RENVELA) 8 Oral, TID ity o f tablet 800 17:00: MEALS, [place] mg 00 First dose Medical on Mon Branch 04/24/19 at 1200, Until Discontinu ed, Routine heparin 2019-0 2019- No 5000U 5,000 Univers 1,000 04-24 08-07 Units, ity of unit/mL 15:15: 18:57 Slow IV [place] injection 00 :00 Push, Medical 5,000 Units DIALYSIS Bran ch ONCE - PT ROOM, 1 dose, 04/24/19 at 1015, Routine insulin NPH 2019-0 Yes 7U 7 Units, Un katherine and regular 8- Subcutaneo it y of human 70-30 14:30: us, BIDAC, [place] (HUMULIN 00 First dose Medic al 70-30 U-100 on Mon Branch INSULIN) 04/24/19 at 100 unit/mL 0930, (70-30) Until injection 7 Discontinu Units ed, Routine metoclopram 2019-0 Yes 10mg 10 mg, Univ ers markos HCl 04-24 Slow IV ity of (REGLAN) 14:30: Push, Q8H, [place] injection 00 First dose Medi maddie 10 mg on Wed Branch 04/24/19 at 0930, Until Discontinu ed, Routine Sliding 2019-0 Yes Subcutaneo Univ ers Scale -07 us, Q4H, ity of Insulin - 14:15: First dose [place] Aspart 00 on Mon Medical (NOVOLOG) + 04/24/19 at [facility] Fsbg 0915, Testing Until Discontinu ed, Routine ondansetron 2019-0 Yes 4mg 4 mg, Slow Univers (ZOFRAN 04-24 IV Push, ity of (PF)) 14:14: Q6HPRN, [place] injection 4 43 Starting Medi maddie mg 04/24/19 Branch at 0914, Until Discontinu ed, Routine, Nausea and Vomiting (N/V) glucagon 2019-0 Yes 1mg 1 mg, Univers (GLUCAGEN 04-24 Intramuscu ity of DIAGNOSTIC 14:13: lar, PRN, [place] KIT) 21 Starting Medical injection 1 04/24/19 Br anch mg at 0913, Until Discontinu ed, ADONAY, Blood Glucose < or = 70 mg/dL and patient is unable to swallow or has mental changes. dextrose 50 2019-0 Yes 25mL 25 mL, Univ ers % in water 04-24 Slow IV ity of (D50W) 14:13: Push, PRN, [place] injection 21 Starting Medica l 25 mL Mon04/24/19 Branch at 0913, Until Discontinu ed, ADONAY, Blood Glucose < or = 70 mg/dL and patient is unable to swallow or has mental status changes. diphenhydrA 2019- 2019- No 12.5mg 12.5 mg, Univers MINE 04-24 Slow IV ity of (BENADRYL) 13:46: 04:59 Push, [place] injection 04 :00 DIALYSIS Medica l 12.5 mg ONCE PRN - Branch JUANJO DSU, 1 dose, Starting Mon04/24/19 at 0846, Until Mon04/24/19 at 2359, Routine, Itching ondansetron 2018- 2019- No 4mg 4 mg, Slow Univers (ZOFRAN 04-24 IV Push, ity of (PF)) 13:46: 04:59 DIALYSIS [place] injection 4 02 :00 ONCE PRN - Me dical mg JU[facility]JO DSU, 1 Branch dose, Starting Mon04/24/19 at 0846, Until Mon04/24/19 at 2359, Routine, Nausea and Vomiting (N/V) amLODIPine 2019-0 Yes 5mg 5 mg, Univer s (NORVASC) 8-04 Oral, ity of tablet 5 mg 14:00: DAILY, [place] 00 First dose Medical on [facility] 04/21/19 at 0900, Until Discontinu ed, Routine aspirin 2019-0 Yes 81mg 81 mg, Univers chewable 8-04 Oral, QAM ity of tablet 81 13:00: WITH [place] mg 00 BREAKFAST, Medical First dose Branch on [place] 04/21/19 at 0800, Until Discontinu ed, Routine atorvastati 2019-0 Yes 20mg 20 mg, Univ ers n (LIPITOR) 8-04 Oral, QHS, it y of tablet 20 02:00: First dose [place] mg 00 on [facility] 04/20/19 at Branch 2100, Until Discontinu ed, Routine docusate 2019-0 Yes 100mg 100 mg, Unive rs (COLACE) 8-04 Oral, BID, ity o f capsule 100 01:00: First dose [place] mg 00 on [facility] 04/20/19 at Branch 2000, Until Discontinu ed, Routine heparin 2019-0 Yes 5000U 5,000 Univers injection 8-04 Units, ity of 5,000 Units 01:00: Subcutaneo [place] 00 us, Q12H, Medical First dose Branch on [facility] 04/20/19 at 2000, Until Discontinu ed, Routine carvedilol 2019-0 Yes 12.5mg 12.5 mg, U nivers (COREG) 8 Oral, BID ity of tablet 12.5 22:00: MEALS, [place] mg 00 First dose Medical on Sat Branch 04/20/19 at 1700, Until Discontinu ed, Routine insulin NPH 2019-0 Yes 7U 7 Units, Un katherine and regular 04-20 Subcutaneo it y of human 70-30 21:30: us, BIDAC, [place] (HUMULIN 00 First dose Medic al 70-30 U-100 on Sat Branch INSULIN) 04/20/19 at 100 unit/mL 1630, (70-30) Until injection 7 Discontinu Units ed, Routine Sliding 2018-0 Yes Subcutaneo Univ ers Scale 04-20 us, TID ity of Insulin - 17:00: MEALS+HS, [place] Aspart 00 First dose Medical (NOVOLOG) + on Sat Branch Fsbg 04/20/19 at Testing 1200, Until Discontinu ed, Routine sevelamer 2018-0 Yes 800mg 800 mg, Univ ers (RENVELA) 04-20 Oral, TID ity o f tablet 800 17:00: MEALS, [place] mg 00 First dose Medical on Sat Branch 04/20/19 at 1200, Until Discontinu ed, Routine ondansetron 2019-0 Yes 4mg 4 mg, Slow Univers (ZOFRAN 04-20 IV Push, ity of (PF)) 16:50: Q6HPRN, [place] injection 4 56 Starting Medi maddie mg 04/20/19 Branch at 1150, Until Discontinu ed, Routine, Nausea and Vomiting (N/V) glucagon 2019-0 Yes 1mg 1 mg, Univers (GLUCAGEN 04-20 Intramuscu ity of DIAGNOSTIC 16:49: lar, PRN, [place] KIT) 56 Starting Medical injection 1 04/20/19 Br anch mg at 1149, Until Discontinu ed, ADONAY, Blood Glucose < or = 70 mg/dL and patient is unable to swallow or has mental changes. dextrose 50 2019-0 Yes 25mL 25 mL, Univ ers % in water 04-20 Slow IV ity of (D50W) 16:49: Push, PRN, [place] injection 56 Starting Medica l 25 mL 04/20/19 Branch at 1149, Until Discontinu ed, ADONAY, Blood Glucose < or = 70 mg/dL and patient is unable to swallow or has mental status changes. heparin 2019- No 5000U 5,000 Univers 1,000 04-20 Units, ity of unit/mL 16:15: 00:53 Slow IV [place] injection 00 :00 Push, Medical 5,000 Units DIALYSIS Bran ch ONCE - PT ROOM, 1 dose, 04/20/19 at 1115, Routine NaCl 0.9% 2019- No 10mL 10 mL, Unive rs (NS) 04-20 Slow IV ity of injection 16:15: 16:15 Push, [place] 10 mL 00 :00 DIALYSIS Medical ONCE - PT Branch ROOM, 1 dose, 04/20/19 at 1115, Routine ondansetron 2019- No 4mg 4 mg, Slow Univers (ZOFRAN 04-20 IV Push, ity of (PF)) 15:07: 04:59 DIALYSIS [place] injection 4 18 :00 ONCE PRN - Me dical mg PT ROOM, 1 Branch dose, Starting 04/20/19 at 1007, Until 04/20/19 at 2359, Routine, Nausea and Vomiting (N/V) diphenhydrA 2019- No 12.5mg 12.5 mg, Univers MINE 04-20 Slow IV ity of (BENADRYL) 15:07: 04:59 Push, [place] injection 05 :00 DIALYSIS Medica l 12.5 mg ONCE PRN - Branch PT ROOM, 1 dose, Starting 04/20/19 at 1007, Until 04/20/19 at 2359, Routine, Itching Sliding Yes Subcutaneo Univ ers Scale 7-29 us, AC, ity of Insulin - 16:30: First dose [place] Aspart 00 on Mon Medical (NOVOLOG) + 04/15/19 at Br anch Fsbg 1130, Testing Until Discontinu ed, Routine heparin 2019- No 5000U 5,000 Univers 1,000 04-15 07-29 Units, ity of unit/mL 15:00: 20:33 Slow IV [place] injection 00 :00 Push, Medical 5,000 Units DIALYSIS Bran ch ONCE - [facility] DSU, 1 dose, 04/15/19 at 1000, Routine NaCl 0.9% 2019- No 10mL 10 mL, Unive rs (NS) 04-15 Slow IV ity of injection 15:00: 20:31 Push, [place] 10 mL 00 :00 DIALYSIS Medical ONCE - [facility] DSU, 1 dose, [facility] 04/15/19 at 1000, Routine traMADol 2018- 2019- No 50mg 50 mg, Univer s (ULTRAM) 04-15 Oral, ity of tablet 50 13:21: 13:20 Q8HPRN, [place] mg 59 :59 Starting Medical [facility] 04/15/19 at 0821, Until 04/17/19 at 0820, Routine, Pain (scale 4-6) acetaminoph Yes 650mg 650 mg, Un katherine en 04-15 Oral, ity of (TYLENOL) 13:21: Q6HPRN, [place] tablet 650 57 Starting Medic al mg [facility] 04/15/19 at 0821, Until Discontinu ed, Routine, Pain (scale 1-3) insulin 2019- No 5U 5 Units, Unive rs regular 04-15 Slow IV ity of human 13:15: 12:15 Push, [place] (HUMULIN R) 00 :00 ONCE, 1 Medic al injection 5 dose, [facility] Units 04/15/19 at 0815, STAT carvedilol Yes [id number] 12.5mg Take 1 Univers 12.5 mg 7-29 tablet by ity of tablet 00:00: mouth 2 [place] 00 (two) Medical times Branch daily with meals. amLODIPine 2018- Yes [id number] 5mg Take 1 U nivers 5 mg tablet 7-29 tablet by ity of 00:00: mouth [place] 00 daily. Medical Branch carvedilol Yes [id number] 12.5mg Take 1 Univers 12.5 mg 7-29 tablet by ity of tablet 00:00: mouth 2 [place] 00 (two) Medical times Branch daily with meals. amLODIPine Yes [id number] 5mg Take 1 U nivers 5 mg tablet 7-29 tablet by ity of 00:00: mouth [place] 00 daily. Medical Branch carvedilol Yes [id number] 12.5mg Take 1 Univers 12.5 mg 7-29 tablet by ity of tablet 00:00: mouth 2 (two) Medical times Branch daily with meals. amLODIPine Yes [id number] 5mg Take 1 U nivers 5 mg tablet 7-29 tablet by ity of 00:00: mouth [place] 00 daily. Medical Branch carvedilol Yes [id number] 12.5mg Take 1 Univers 12.5 mg 7-29 tablet by ity of tablet 00:00: mouth 2 (two) Medical times Branch daily with meals. amLODIPine Yes [id number] 5mg Take 1 U nivers 5 mg tablet 7-29 tablet by ity of 00:00: mouth [place] 00 daily. Medical Branch carvedilol Yes [id number] 12.5mg Take 1 Univers 12.5 mg 7-29 tablet by ity of tablet 00:00: mouth 2 (two) Medical times Branch daily with meals. amLODIPine Yes [id number] 5mg Take 1 U nivers 5 mg tablet 7-29 tablet by ity of 00:00: mouth [place] 00 daily. Medical Branch carvedilol Yes [id number] 12.5mg Take 1 Univers 12.5 mg 7-29 tablet by ity of tablet 00:00: mouth 2 (two) Medical times Branch daily with meals. amLODIPine Yes [id number] 5mg Take 1 U nivers 5 mg tablet 7-29 tablet by ity of 00:00: mouth [place] 00 daily. Medical Branch carvedilol Yes [id number] 12.5mg Take 1 Univers 12.5 mg 7-29 tablet by ity of tablet 00:00: mouth 2 (two) Medical times Branch daily with meals. amLODIPine Yes [id number] 5mg Take 1 U nivers 5 mg tablet 7-29 tablet by ity of 00:00: mouth [place] 00 daily. Medical Branch carvedilol Yes [id number] 12.5mg Take 1 Univers 12.5 mg 7-29 tablet by ity of tablet 00:00: mouth 2 00 (two) Medical times Branch daily with meals. amLODIPine Yes [id number] 5mg Take 1 U nivers 5 mg tablet 7-29 tablet by ity of 00:00: mouth [place] 00 daily. Medical Branch carvedilol 2018- Yes [id number] 12.5mg Take 1 Univers 12.5 mg 7-29 tablet by ity of tablet 00:00: mouth 2 (two) Medical times Branch daily with meals. amLODIPine Yes [id number] 5mg Take 1 U nivers 5 mg tablet 7-29 tablet by ity of 00:00: mouth [place] 00 daily. Medical Branch carvedilol 2018-0 Yes [id number] 12.5mg Take 1 Univers 12.5 mg 7-29 tablet by ity of tablet 00:00: mouth 2 00 (two) Medical times Branch daily with meals. amLODIPine Yes [id number] 5mg Take 1 U nivers 5 mg tablet 7-29 tablet by ity of 00:00: mouth [place] 00 daily. Medical Branch carvedilol Yes [id number] 12.5mg Take 1 Univers 12.5 mg 7-29 tablet by ity of tablet 00:00: mouth 2 (two) Medical times Branch daily with meals. amLODIPine Yes [id number] 5mg Take 1 U nivers 5 mg tablet 7-29 tablet by ity of 00:00: mouth [place] 00 daily. Medical Branch carvedilol Yes [id number] 12.5mg Take 1 Univers 12.5 mg 7-29 tablet by ity of tablet 00:00: mouth 2 00 (two) Medical times Branch daily with meals. amLODIPine Yes [id number] 5mg Take 1 U nivers 5 mg tablet 7-29 tablet by ity of 00:00: mouth [place] 00 daily. Medical Branch carvedilol 0 Yes [id number] 12.5mg Take 1 Univers 12.5 mg 7-29 tablet by ity of tablet 00:00: mouth 2 00 (two) Medical times Branch daily with meals. amLODIPine 0 Yes [id number] 5mg Take 1 U nivers 5 mg tablet 7-29 tablet by ity of 00:00: mouth [place] 00 daily. Medical Branch carvedilol 2019- No [id number] 12.5mg Take 1 Univers 12.5 mg 7-08 07-29 tablet by ity of tablet 00:00: 00:00 mouth 2 [place] 00 :00 (two) Medical times Branch daily with meals. amLODIPine 2018- No [id number] 5mg Take 1 Univers 5 mg tablet 03-25 tablet by it y of 00:00: 00:00 mouth [place] 00 :00 daily. Medical Branch glipiZIDE 5 2018- No [id number] 2.5mg Take 0.5 Univers mg tablet -24 tablets by ity of 00:00: 04:59 mouth [place] 00 :00 daily with Medical breakfast Branch for 90 days. Monitor glucose carefully as this medication can drop your blood sugars too much. Take insulin with this medication with careful monitoring sevelamer 2018- No [id number] 800mg Take 1 Univers 800 mg 6-25 -24 tablet by ity of tablet 00:00: 04:59 mouth 3 [place] 00 :00 (three) Medical times [place] daily with meals for 90 days. glipiZIDE 5 2018- No [id number] 2.5mg Take 0.5 Univers mg tablet 03-1224 tablets by ity of 00:00: 04:59 mouth [place] 00 :00 daily with Medical [facility] for 90 days. Monitor glucose carefully as this medication can drop your blood sugars too much. Take insulin with this medication with careful monitoring [facility] 2018- No [id number] 800mg Take 1 [facility] 800 mg 6-24 tablet by ity of tablet 00:00: 04:59 mouth 3 [place] 00 :00 (three) Medical times [place] daily with meals for 90 days. glipiZIDE 5 2018- No [id number] 2.5mg Take 0.5 [facility] mg tablet 03-1224 tablets by ity of 00:00: 04:59 mouth [place] 00 :00 daily with Medical [facility] for 90 days. Monitor glucose carefully as this medication can drop your blood sugars too much. Take insulin with this medication with careful monitoring [facility] 2018- No [id number] 800mg Take 1 [facility] 800 mg 6-25 -24 tablet by ity of tablet 00:00: 04:59 mouth 3 [place] 00 :00 (three) Medical times [place] daily with meals for 90 days. glipiZIDE 5 2018- No [id number] 2.5mg Take 0.5 [facility] mg tablet 6-24 tablets by ity of 00:00: 04:59 mouth [place] 00 :00 daily with Medical breakfast Branch for 90 days. Monitor glucose carefully as this medication can drop your blood sugars too much. Take insulin with this medication with careful monitoring [facility] 2018- No [id number] 800mg Take 1 [facility] 800 mg 6-25 09-24 tablet by ity of tablet 00:00: 04:59 mouth 3 [place] 00 :00 (three) Medical times Branch daily with meals for 90 days. glipiZIDE 5 2018- No [id number] 2.5mg Take 0.5 [facility] mg tablet 6-25 -24 tablets by ity of 00:00: 04:59 mouth [place] 00 :00 daily with Medical breakfast Branch for 90 days. Monitor glucose carefully as this medication can drop your blood sugars too much. Take insulin with this medication with careful monitoring [facility] 2018- No [id number] 800mg Take 1 [facility] 800 mg 6-25 -24 tablet by ity of tablet 00:00: 04:59 mouth 3 [place] 00 :00 (three) Medical times Branch daily with meals for 90 days. glipiZIDE 5 2018- No [id number] 2.5mg Take 0.5 [facility] mg tablet 6-25 -24 tablets by ity of 00:00: 04:59 mouth [place] 00 :00 daily with Medical breakfast Branch for 90 days. Monitor glucose carefully as this medication can drop your blood sugars too much. Take insulin with this medication with careful monitoring [facility] 2018- No [id number] 800mg Take 1 [facility] 800 mg 6-25 -24 tablet by ity of tablet 00:00: 04:59 mouth 3 [place] 00 :00 (three) Medical times Branch daily with meals for 90 days. glipiZIDE 5 2018- No [id number] 2.5mg Take 0.5 [facility] mg tablet 6-25 -24 tablets by ity of 00:00: 04:59 mouth [place] 00 :00 daily with Medical breakfast Branch for 90 days. Monitor glucose carefully as this medication can drop your blood sugars too much. Take insulin with this medication with careful monitoring [facility] 2018- No [id number] 800mg Take 1 [facility] 800 mg 6-25 09-24 tablet by ity of tablet 00:00: 04:59 mouth 3 [place] 00 :00 (three) Medical times Branch daily with meals for 90 days. glipiZIDE 5 2018- No [id number] 2.5mg Take 0.5 [facility] mg tablet 6-12 06-24 tablets by ity of 00:00: 04:59 mouth [place] 00 :00 daily with Medical breakfast Branch for 90 days. Monitor glucose carefully as this medication can drop your blood sugars too much. Take insulin with this medication with careful monitoring [facility] 2018- No [id number] 800mg Take 1 [facility] 800 mg 6-25 -24 tablet by ity of tablet 00:00: 04:59 mouth 3 [place] 00 :00 (three) Medical times Branch daily with meals for 90 days. glipiZIDE 5 2018- No [id number] 2.5mg Take 0.5 [facility] mg tablet 6-25 -24 tablets by ity of 00:00: 04:59 mouth [place] 00 :00 daily with Medical breakfast Branch for 90 days. Monitor glucose carefully as this medication can drop your blood sugars too much. Take insulin with this medication with careful monitoring [facility]- No [id number] 800mg Take 1 [facility] 800 mg 6-25 -24 tablet by ity of tablet 00:00: 04:59 mouth 3 [place] 00 :00 (three) Medical times Branch daily with meals for 90 days. glipiZIDE 5 2018- No [id number] 2.5mg Take 0.5 [facility] mg tablet 6-12 06-24 tablets by ity of 00:00: 04:59 mouth [place] 00 :00 daily with Medical breakfast Branch for 90 days. Monitor glucose carefully as this medication can drop your blood sugars too much. Take insulin with this medication with careful monitoring [facility] 2018- No [id number] 800mg Take 1 [facility] 800 mg 6-25 -24 tablet by ity of tablet 00:00: 04:59 mouth 3 [place] 00 :00 (three) Medical times Branch daily with meals for 90 days. glipiZIDE 5 2018- No [id number] 2.5mg Take 0.5 [facility] mg tablet 6-25 -24 tablets by ity of 00:00: 04:59 mouth [place] 00 :00 daily with Medical breakfast Branch for 90 days. Monitor glucose carefully as this medication can drop your blood sugars too much. Take insulin with this medication with careful monitoring [facility] 2018- No [id number] 800mg Take 1 [facility] 800 mg 6-06-11 tablet by ity of tablet 00:00: 04:59 mouth 3 [place] 00 :00 (three) Medical times Branch daily with meals for 90 days. [facility] 2018- No [id number] 800mg Take 1 [facility] 800 mg 6-06-11 tablet by ity of tablet 00:00: 04:59 mouth 3 [place] 00 :00 (three) Medical times Branch daily with meals for 90 days. glipiZIDE 5 2018- No [id number] 2.5mg Take 0.5 [facility] mg tablet 03-12 tablets by ity of 00:00: 04:59 mouth [place] 00 :00 daily with Medical breakfast Branch for 90 days. Monitor glucose carefully as this medication can drop your blood sugars too much. Take insulin with this medication with careful monitoring [facility] 2018- No [id number] 800mg Take 1 [facility] 800 mg 6-06-11 tablet by ity of tablet 00:00: 04:59 mouth 3 [place] 00 :00 (three) Medical times Branch daily with meals for 90 days. glipiZIDE 5 2018- No [id number] 2.5mg Take 0.5 [facility] mg tablet 03-12 tablets by ity of 00:00: 00:00 mouth [place] 00 :00 daily with Medical breakfast Branch for 90 days. Monitor glucose carefully as this medication can drop your blood sugars too much. Take insulin with this medication with careful monitoring sodium Yes [id number] 15g Take 60 mL U nivers polystyrene 6-21 by mouth ity of sulfonate 00:00: every [place] 15 gram/60 00 other day. Med ical mL Branch suspension sodium Yes [id number] 15g Take 60 mL U nivers polystyrene 6-21 by mouth ity of sulfonate 00:00: every [place] 15 gram/60 00 other day. Med ical mL Branch suspension sodium Yes [id number] 15g Take 60 mL U nivers polystyrene 6-21 by mouth ity of sulfonate 00:00: every [place] 15 gram/60 00 other day. Med ical mL Branch suspension sodium Yes [id number] 15g Take 60 mL U nivers polystyrene 6-21 by mouth ity of sulfonate 00:00: every [place] 15 gram/60 00 other day. Med ical mL Branch suspension sodium 2018-0 Yes [id number] 15g Take 60 mL U nivers polystyrene 6-21 by mouth ity of sulfonate 00:00: every [place] 15 gram/60 00 other day. Med ical mL Branch suspension sodium 2018-0 Yes [id number] 15g Take 60 mL U nivers polystyrene 6-21 by mouth ity of sulfonate 00:00: every [place] 15 gram/60 00 other day. Med ical mL Branch suspension sodium 2018-0 Yes [id number] 15g Take 60 mL U nivers polystyrene 6-21 by mouth ity of sulfonate 00:00: every [place] 15 gram/60 00 other day. Med ical mL Branch suspension sodium 2018-0 Yes [id number] 15g Take 60 mL U nivers polystyrene 6-21 by mouth ity of sulfonate 00:00: every [place] 15 gram/60 00 other day. Med ical mL Branch suspension sodium 2018-0 Yes [id number] 15g Take 60 mL U nivers polystyrene 6-21 by mouth ity of sulfonate 00:00: every [place] 15 gram/60 00 other day. Med ical mL Branch suspension sodium 2018-0 Yes [id number] 15g Take 60 mL U nivers polystyrene 6-21 by mouth ity of sulfonate 00:00: every [place] 15 gram/60 00 other day. Med ical mL Branch suspension sodium 2018-0 Yes [id number] 15g Take 60 mL U nivers polystyrene 6-21 by mouth ity of sulfonate 00:00: every [place] 15 gram/60 00 other day. Med ical mL Branch suspension sodium 2018-0 Yes [id number] 15g Take 60 mL U nivers polystyrene 6-21 by mouth ity of sulfonate 00:00: every [place] 15 gram/60 00 other day. Med ical mL Branch suspension sodium 2018-0 Yes [id number] 15g Take 60 mL U nivers polystyrene 6-21 by mouth ity of sulfonate 00:00: every [place] 15 gram/60 00 other day. Med ical mL Branch suspension aspirin 81 2018- 2019- No [id number] 81mg Take 1 [facility] mg chewable 5-28 11-25 tablet by it y of tablet 00:00: 05:59 mouth [place] 00 :00 daily with Medical breakfast Branch for 180 days. aspirin 81 2019- No [id number] 81mg Take 1 [facility] mg chewable 5-28 11-25 tablet by it y of tablet 00:00: 05:59 mouth [place] 00 :00 daily with Medical breakfast Branch for 180 days. aspirin 81 2019- No [id number] 81mg Take 1 [facility] mg chewable 5-28 11-25 tablet by it y of tablet 00:00: 05:59 mouth [place] 00 :00 daily with Medical breakfast Branch for 180 days. aspirin 81 2019- No [id number] 81mg Take 1 [facility] mg chewable 5-28 11-25 tablet by it y of tablet 00:00: 05:59 mouth [place] 00 :00 daily with Medical breakfast Branch for 180 days. aspirin 81 2019- No [id number] 81mg Take 1 [facility] mg chewable 5-28 11-25 tablet by it y of tablet 00:00: 05:59 mouth [place] 00 :00 daily with Medical breakfast Branch for 180 days. aspirin 81 2019- No [id number] 81mg Take 1 [facility] mg chewable 5-28 11-25 tablet by it y of tablet 00:00: 05:59 mouth [place] 00 :00 daily with Medical breakfast Branch for 180 days. aspirin 81 2019- No [id number] 81mg Take 1 [facility] mg chewable 5-28 11-25 tablet by it y of tablet 00:00: 05:59 mouth [place] 00 :00 daily with Medical breakfast Branch for 180 days. aspirin 81 2019- No [id number] 81mg Take 1 [facility] mg chewable 5-28 11-25 tablet by it y of tablet 00:00: 05:59 mouth [place] 00 :00 daily with Medical breakfast Branch for 180 days. aspirin 81 2019- No [id number] 81mg Take 1 [facility] mg chewable 5-28 11-25 tablet by it y of tablet 00:00: 05:59 mouth [place] 00 :00 daily with Medical breakfast Branch for 180 days. aspirin 81 2019- No [id number] 81mg Take 1 [facility] mg chewable 5-28 11-25 tablet by it y of tablet 00:00: 05:59 mouth [place] 00 :00 daily with Medical breakfast Branch for 180 days. aspirin 81 2019- No [id number] 81mg Take 1 [facility] mg chewable 5-28 11-25 tablet by it y of tablet 00:00: 05:59 mouth [place] 00 :00 daily with Medical breakfast Branch for 180 days. aspirin 81 2019- No [id number] 81mg Take 1 [facility] mg chewable 5-28 11-25 tablet by it y of tablet 00:00: 05:59 mouth [place] 00 :00 daily with Medical breakfast Branch for 180 days. aspirin 81 2019- No [id number] 81mg Take 1 [facility] mg chewable 5-28 11-25 tablet by it y of tablet 00:00: 05:59 mouth [place] 00 :00 daily with Medical breakfast Branch for 180 days. insulin NPH Yes [id number] 7U inject 7 [facility] and regular 5-01 Units ity of human 70-30 00:00: under the [place] 100 unit/mL 00 skin 2 Medica l (70-30) (two) Branch injection times daily before breakfast and dinner. [employer] brand insulin NPH Yes [id number] 7U inject 7 [facility] and regular 5-01 Units ity of human 70-30 00:00: under the [place] 100 unit/mL 00 skin 2 Medica l (70-30) (two) Branch injection times daily before breakfast and dinner. [employer] brand insulin NPH Yes [id number] 7U inject 7 [facility] and regular 5-01 Units ity of human 70-30 00:00: under the [place] 100 unit/mL 00 skin 2 Medica l (70-30) (two) Branch injection times daily before breakfast and dinner. [employer] brand insulin NPH Yes [id number] 7U inject 7 [facility] and regular 5-01 Units ity of human 70-30 00:00: under the [place] 100 unit/mL 00 skin 2 Medica l (70-30) (two) Branch injection times daily before breakfast and dinner. [employer] brand insulin NPH Yes [id number] 7U inject 7 [facility] and regular 5-01 Units ity of human 70-30 00:00: under the [place] 100 unit/mL 00 skin 2 Medica l (70-30) (two) Branch injection times daily before breakfast and dinner. [employer] brand insulin NPH Yes [id number] 7U inject 7 [facility] and regular 5-01 Units ity of human 70-30 00:00: under the [place] 100 unit/mL 00 skin 2 Medica l (70-30) (two) Branch injection times daily before breakfast and dinner. [employer] brand insulin NPH 2018-0 Yes [id number] 7U inject 7 [facility] and regular 5-01 Units ity of human 70-30 00:00: under the [place] 100 unit/mL 00 skin 2 Medica l (70-30) (two) Branch injection times daily before breakfast and dinner. [employer] brand insulin NPH 2018-0 Yes [id number] 7U inject 7 [facility] and regular 5-01 Units ity of human 70-30 00:00: under the [place] 100 unit/mL 00 skin 2 Medica l (70-30) (two) Branch injection times daily before breakfast and dinner. [employer] brand insulin NPH 2018-0 Yes [id number] 7U inject 7 [facility] and regular 5-01 Units ity of human 70-30 00:00: under the [place] 100 unit/mL 00 skin 2 Medica l (70-30) (two) Branch injection times daily before breakfast and dinner. [employer] brand insulin NPH 2018-0 Yes [id number] 7U inject 7 [facility] and regular 5-01 Units ity of human 70-30 00:00: under the [place] 100 unit/mL 00 skin 2 Medica l (70-30) (two) Branch injection times daily before breakfast and dinner. [employer] brand insulin NPH 2018-0 Yes [id number] 7U inject 7 [facility] and regular 5-01 Units ity of human 70-30 00:00: under the [place] 100 unit/mL 00 skin 2 Medica l (70-30) (two) Branch injection times daily before breakfast and dinner. [employer] brand insulin NPH 2018-0 Yes [id number] 7U inject 7 [facility] and regular 5-01 Units ity of human 70-30 00:00: under the [place] 100 unit/mL 00 skin 2 Medica l (70-30) (two) Branch injection times daily before breakfast and dinner. [employer] brand insulin NPH 2018-0 Yes [id number] 7U inject 7 [facility] and regular 5-01 Units ity of human 70-30 00:00: under the [place] 100 unit/mL 00 skin 2 Medica l (70-30) (two) Branch injection times daily before breakfast and dinner. [facility] brand atorvastati 2018-0 Yes [id number] 20mg Take 1 [facility] n 20 mg 2-27 tablet by ity of tablet 00:00: mouth at [place] [address] bedtime. Medical Branch atorvastati 2018-0 Yes [id number] 20mg Take 1 [facility] n 20 mg 2-27 tablet by ity of tablet 00:00: mouth at [place] [address] bedtime. Medical Branch atorvastati 0 Yes [id number] 20mg Take 1 [facility] n 20 mg 2-27 tablet by ity of tablet 00:00: mouth at [place] [address] bedtime. Medical Branch atorvastati Yes [id number] 20mg Take 1 [facility] n 20 mg 2-27 tablet by ity of tablet 00:00: mouth at [place] [address] bedtime. Medical Branch atorvastati Yes [id number] 20mg Take 1 [facility] n 20 mg 2-27 tablet by ity of tablet 00:00: mouth at [place] [address] bedtime. Medical Branch atorvastati Yes [id number] 20mg Take 1 [facility] n 20 mg 2-27 tablet by ity of tablet 00:00: mouth at [place] [address] bedtime. Medical Branch atorvastati Yes [id number] 20mg Take 1 [facility] n 20 mg 2-27 tablet by ity of tablet 00:00: mouth at [place] [address] bedtime. Medical Branch atorvastati 2018-0 Yes [id number] 20mg Take 1 [facility] n 20 mg 2-27 tablet by ity of tablet 00:00: mouth at [place] [address] bedtime. Medical Branch atorvastati 0 Yes [id number] 20mg Take 1 [facility] n 20 mg 2-27 tablet by ity of tablet 00:00: mouth at [place] [address] bedtime. Medical Branch atorvastati 2018-0 Yes [id number] 20mg Take 1 [facility] n 20 mg 2-27 tablet by ity of tablet 00:00: mouth at [place] [address] bedtime. Medical Branch atorvastati 2018-0 Yes [id number] 20mg Take 1 [facility] n 20 mg 2-27 tablet by ity of tablet 00:00: mouth at [place] [address] bedtime. Medical Branch atorvastati Yes [id number] 20mg Take 1 [facility] n 20 mg 2-27 tablet by ity of tablet 00:00: mouth at [place] 00 bedtime. Medical Branch atorvastati Yes [id number] 20mg Take 1 [facility] n 20 mg 2-27 tablet by ity of tablet 00:00: mouth at [place] 00 bedtime. Medical Branch amLODIPine Yes 10mg QD Take [address] [facility] (NORVASC) 3-23 by mouth [facility] - 10 MG 19:11: daily. Medical tablet 22 Center aspirin 81 Yes 81mg QD Take [address] MG chewable 3-23 by mouth [facility] - tablet 19:11: daily. Medical [facility] Center calcium Yes 1{tbl} [id number] Take [address] [facility] carbonate 3-23 [id number] tablet by [facility] - (TUMS) 500 19:11: [...] daily as needed for Nausea. b complex 2017-0 Yes 1{tbl} QD Take [address] [facility] vitamins 3-23 tablet by [facility] - tablet 19:11: mouth Medical 22 daily. Center Immunizations Ordered Filled Immunization Date Status Comments [facility] e Immunization Name Name Pneumococcal 2021-10-[address] [facility] - Conjugate (Prevnar) 00:00:[address] 13-Valent HEP B, Adult Dosage 2020-01-11 Completed [facility] rs[facility] of 00:00:00 [facility] HEP B, Adult Dosage 2019-12-12 Completed [facility]ive rsity of 00:00:00 [facility] PPD (TB) 2019-11-12 Completed University of 00:00:00 [facility] HEP B, Adult Dosage 2019-11-12 Completed Unive rsity of 00:00:00 [facility] PPD (TB) 2019-10-29 Completed University of 00:00:00 [facility] PPD (TB) 2019-10-24 Completed University of 00:00:00 [facility] Influenza Virus 2019-07-04 Completed Universit y of Vaccine 00:00:00 [facility] Influenza Virus 2019-02-23 Completed Universit y of Vaccine Quad .5 mL 00:00:00 [facility] 6+ MO Branch Influenza Virus 2019-02-23 Completed Universit y of Vaccine [facility] .5 mL 00:00:00 [facility] 6+ MO Branch Influenza Virus 2019-02-23 Completed Universit y of Vaccine Quad .5 mL 00:00:00 [place] [facility] 6+ MO Branch Influenza Virus 2019-02-23 Completed Universit y of Vaccine Quad .5 mL 00:00:00 [place] [facility] 6+ MO Branch Influenza Virus 2019-02-23 Completed Universit y of Vaccine Quad .5 mL 00:00:00 [place] [facility] 6+ MO Branch Influenza Virus 2019-02-23 Completed Universit y of Vaccine Quad .5 mL 00:00:00 [place] [facility] 6+ MO Branch Influenza Virus 2019-02-23 Completed Universit y of Vaccine Quad .5 mL 00:00:00 [place] [facility] 6+ MO Branch Influenza Virus 2019-02-23 Completed Universit y of Vaccine Quad .5 mL 00:00:00 [place] [facility] 6+ MO Branch Influenza Virus 2019-02-23 Completed Universit y of Vaccine Quad .5 mL 00:00:00 [place] [facility] 6+ MO Branch Influenza Virus 2019-02-23 Completed Universit y of Vaccine Quad .5 mL 00:00:00 [place] [facility] 6+ MO Branch Influenza Virus 2019-02-23 Completed Universit y of Vaccine Quad .5 mL 00:00:00 [place] [facility] 6+ MO Branch Influenza Virus 2019-02-23 Completed Universit y of Vaccine Quad .5 mL 00:00:00 [place] [facility] 6+ MO Branch Influenza Virus 2019-02-23 Completed Universit y of Vaccine Quad .5 mL 00:00:00 [place] [facility] 6+ MO Branch Influenza Virus 2019-02-23 Completed Universit y of Vaccine Quad .5 mL 00:00:00 [place] [facility] IM 6+ MO Branch Influenza Virus 2019-02-23 Completed Universit y of Vaccine Quad .5 mL 00:00:00 [place] [facility] IM 6+ MO Branch Influenza Virus 2018-11-14 Completed Universit y of Vaccine Quad .5 mL 00:00:00 [place] [facility] IM 6+ MO Branch Influenza Virus 2018-11-14 Completed Universit y of Vaccine Quad .5 mL 00:00:00 [place] [facility] IM 6+ MO Branch Influenza Virus 2018-11-14 Completed Universit y of Vaccine Quad .5 mL 00:00:00 [place] [facility] IM 6+ MO Branch Influenza Virus 2018-11-14 Completed Universit y of Vaccine Quad .5 mL 00:00:00 [place] [facility] IM 6+ MO Branch Influenza Virus 2018-11-14 Completed Universit y of Vaccine Quad .5 mL 00:00:00 [place] [facility] IM 6+ MO Branch Influenza Virus 2018-11-14 Completed Universit y of Vaccine Quad .5 mL 00:00:00 [place] [facility] IM 6+ MO Branch Influenza Virus 2018-11-14 Completed Universit y of Vaccine Quad .5 mL 00:00:00 [place] [facility] IM 6+ MO Branch Influenza Virus 2018-11-14 Completed Universit y of Vaccine Quad .5 mL 00:00:00 [place] [facility] IM 6+ MO Branch Influenza Virus 2018-11-14 Completed Universit y of Vaccine Quad .5 mL 00:00:00 [place] [facility] IM 6+ MO Branch Influenza Virus 2018-11-14 Completed Universit y of Vaccine Quad .5 mL 00:00:00 [place] [facility] IM 6+ MO Branch Influenza Virus 2018-11-14 Completed Universit y of Vaccine Quad .5 mL 00:00:00 [place] [facility] IM 6+ MO Branch Influenza Virus 2018-11-14 Completed Universit y of Vaccine Quad .5 mL 00:00:00 [place] [facility] IM 6+ MO Branch Influenza Virus 2018-11-14 Completed Universit y of Vaccine Quad .5 mL 00:00:00 [place] [facility] IM 6+ MO Branch Influenza Virus 2018-11-14 Completed Universit y of Vaccine Quad .5 mL 00:00:00 [place] [facility] IM 6+ MO Branch Influenza Virus 2018-11-14 Completed Universit y of Vaccine Quad .5 mL 00:00:00 [place] [facility] IM 6+ MO Branch Influenza Virus 2018-11-14 Completed Universit y of Vaccine Quad .5 mL 00:00:00 [place] [facility] IM 6+ MO Branch Influenza Virus 2018-11-14 Completed Universit y of Vaccine Quad .5 mL 00:00:00 [place] [facility] IM 6+ MO Branch Influenza Virus 2018-11-14 Completed Universit y of Vaccine Quad .5 mL 00:00:00 [place] [facility] 6+ MO Branch Influenza Virus 2018-11-14 Completed Universit y of Vaccine Quad .5 mL 00:00:00 [place] [facility] 6+ MO Branch Influenza Virus 2018-11-14 Completed Universit y of Vaccine Quad .5 mL 00:00:00 [place] [facility] 6+ MO Branch Influenza Virus 2018-11-14 Completed Universit y of Vaccine Quad .5 mL 00:00:00 [place] [facility] 6+ MO Branch Influenza Virus 2018-11-14 Completed Universit y of Vaccine Quad .5 mL 00:00:00 [place] [facility] 6+ MO Branch Influenza Virus 2018-11-14 Completed Universit y of Vaccine Quad .5 mL 00:00:00 [place] [facility] IM 6+ MO Branch Influenza Virus 2018-11-14 Completed Universit y of Vaccine Quad .5 mL 00:00:00 [place] [facility] IM 6+ MO Branch Influenza Virus 2018-11-14 Completed Universit y of Vaccine Quad .5 mL 00:00:00 [place] [facility] IM 6+ MO Branch Influenza Virus 2018-11-14 Completed Universit y of Vaccine Quad .5 mL 00:00:00 [place] [facility] IM 6+ MO Branch Influenza Virus 2018-11-14 Completed Universit y of Vaccine Quad .5 mL 00:00:00 [place] [facility] IM 6+ MO Branch Influenza Virus 2018-11-14 Completed Universit y of Vaccine Quad .5 mL 00:00:00 [place] [facility] IM 6+ MO Branch Influenza Virus 2018-11-14 Completed Universit y of Vaccine Quad .5 mL 00:00:00 [place] [facility] 6+ MO Branch Influenza Virus 2018-11-14 Completed Universit y of Vaccine Quad .5 mL 00:00:00 [facility] IM 6+ MO Branch Pneumococcal 2018-08-10 Completed University o f Polysaccharide, 00:00:00 [place] Med ical PPSV23 (PNEUMOVAX) Branch Pneumococcal 2018-08-10 Completed University o f Polysaccharide, 00:00:00 [place] Med ical PPSV23 (PNEUMOVAX) Branch Pneumococcal 2018-08-10 Completed University o f Polysaccharide, 00:00:00 [place] Med ical PPSV23 (PNEUMOVAX) Branch Pneumococcal 2018-08-10 Completed University o f Polysaccharide, 00:00:00 [place] Med ical PPSV23 (PNEUMOVAX) Branch Pneumococcal 2018-08-10 Completed University o f Polysaccharide, 00:00:00 [place] Med ical PPSV23 (PNEUMOVAX) Branch Pneumococcal 2018-08-10 Completed University o f Polysaccharide, 00:00:00 [place] Med ical PPSV23 (PNEUMOVAX) Branch Pneumococcal 2018-08-10 Completed University o f Polysaccharide, 00:00:00 [place] Med ical PPSV23 (PNEUMOVAX) Branch Pneumococcal 2018-08-10 Completed University o f Polysaccharide, 00:00:00 [place] Med ical PPSV23 (PNEUMOVAX) Branch Pneumococcal 2018-08-10 Completed University o f Polysaccharide, 00:00:00 [place] Med ical PPSV23 (PNEUMOVAX) Branch Pneumococcal 2018-08-10 Completed University o f Polysaccharide, 00:00:00 [place] Med ical PPSV23 (PNEUMOVAX) Branch Pneumococcal 2018-08-10 Completed University o f Polysaccharide, 00:00:00 [place] Med ical PPSV23 (PNEUMOVAX) Branch Pneumococcal 2018-08-10 Completed University o f Polysaccharide, 00:00:00 [place] Med ical PPSV23 (PNEUMOVAX) Branch Pneumococcal 2018-08-10 Completed University o f Polysaccharide, 00:00:00 [place] Med ical PPSV23 (PNEUMOVAX) Branch Pneumococcal 2018-08-10 Completed University o f Polysaccharide, 00:00:00 [place] Med ical PPSV23 (PNEUMOVAX) Branch Pneumococcal 2018-08-10 Completed University o f Polysaccharide, 00:00:00 [place] Med ical PPSV23 (PNEUMOVAX) Branch Influenza Virus 2018-07-02 Completed Universit y of Vaccine Quad .5 mL 00:00:00 [place] [facility] IM 6+ MO Branch Influenza Virus 2018-07-02 Completed Universit y of Vaccine Quad .5 mL 00:00:00 [place] [facility] IM 6+ MO Branch Influenza Virus 2018-07-02 Completed Universit y of Vaccine Quad .5 mL 00:00:00 [place] [facility] IM 6+ MO Branch Influenza Virus 2018-07-02 Completed Universit y of Vaccine Quad .5 mL 00:00:00 [facility] Influenza Virus 2018-07-02 Completed [facility] .5 mL 00:00:00 [facility] Influenza Virus 2018-07-02 Completed [facility] .5 mL 00:00:00 [facility] Influenza Virus 2018-07-02 Completed [facility] .5 mL 00:00:00 [facility] Influenza Virus 2018-07-02 Completed [facility] .5 mL 00:00:00 [facility] Influenza Virus 2018-07-02 Completed [facility] .5 mL 00:00:00 [facility] Influenza Virus 2018-07-02 Completed [facility] .5 mL 00:00:00 [facility] Influenza Virus 2018-07-02 Completed [facility] .5 mL 00:00:00 [facility] Influenza Virus 2018-07-02 Completed [facility] .5 mL 00:00:00 [facility] Influenza Virus 2018-07-02 Completed [facility] .5 mL 00:00:00 [facility] Influenza Virus 2018-07-02 Completed [facility] .5 mL 00:00:00 [facility] Influenza Virus 2018-07-02 Completed [facility] .5 mL 00:00:00 [facility] Influenza Virus 2017-06-20 Completed [facility] IM 3+ 00:00:00 [facility] Influenza Virus 2017-06-20 Completed [facility] IM 3+ 00:00:00 [facility] Influenza Virus 2017-06-20 Completed [facility] IM 3+ 00:00:00 [facility] Influenza Virus 2017-06-20 Completed [facility] IM 3+ 00:00:00 [facility] Influenza Virus 2017-06-20 Completed [facility] IM 3+ 00:00:00 [facility] Influenza Virus 2017-06-20 Completed [facility] IM 3+ 00:00:00 [facility] Influenza Virus 2017-06-20 Completed [facility] IM 3+ 00:00:00 [facility] Influenza Virus 2017-06-20 Completed [facility] IM 3+ 00:00:00 [facility] Influenza Virus 2017-06-20 Completed [facility] IM 3+ 00:00:00 [facility] Influenza Virus 2017-06-20 Completed [facility] IM 3+ 00:00:00 [facility] Influenza Virus 2017-06-20 Completed [facility] IM 3+ 00:00:00 [facility] Influenza Virus 2017-06-20 Completed [facility] IM 3+ 00:00:00 [facility] Influenza Virus 2017-06-20 Completed [facility] IM 3+ 00:00:00 [facility] Influenza Virus 2017-06-20 Completed [facility] IM 3+ 00:00:00 [facility] Influenza Virus 2017-06-20 Completed [facility] IM 3+ 00:00:00 [facility] Influenza Virus 2016-12-03 Completed [facility] of Vaccine 00:00:00 [facility] Influenza Three-TIV 2016-12-03 Completed [facility] - PF 5+ YR 00:00:00 [facility] Influenza Three-TIV 2016-12-03 Completed [facility] - PF 5+ YR 00:00:00 [facility] Influenza Virus 2016-06-24 Completed [facility] IM 3+ 00:00:00 [facility] Influenza Virus 2016-06-24 Completed [facility] IM 3+ 00:00:00 [facility] Influenza Virus 2016-06-24 Completed [facility] IM 3+ 00:00:00 [facility] Influenza Virus 2016-06-24 Completed [facility] IM 3+ 00:00:00 [facility] Influenza Virus 2016-06-24 Completed [facility] IM 3+ 00:00:00 [facility] Influenza Virus 2016-06-24 Completed [facility] IM 3+ 00:00:00 [facility] Influenza Virus 2016-06-24 Completed [facility] IM 3+ 00:00:00 [facility] Influenza Virus 2016-06-24 Completed [facility] IM 3+ 00:00:00 [facility] Influenza Virus 2016-06-24 Completed [facility] IM 3+ 00:00:00 [facility] Influenza Virus 2016-06-24 Completed [facility] IM 3+ 00:00:00 [facility] Influenza Virus 2016-06-24 Completed [facility] IM 3+ 00:00:00 [facility] Influenza Virus 2016-06-24 Completed [facility] IM 3+ 00:00:00 [facility] Influenza Virus 2016-06-24 Completed [facility] IM 3+ 00:00:00 [facility] Influenza Virus 2016-06-24 Completed [facility] IM 3+ 00:00:00 [facility] Influenza Virus 2016-06-24 Completed [facility] IM 3+ 00:00:00 [facility] Pneumococcal 2016-01-25 Completed [facility] o f Polysaccharide, 00:00:00 [place] [facility] PPSV23 (PNEUMOVAX) [facility] Influenza Virus 2016-01-25 Completed [facility] Vaccine [facility] IM 3+ 00:00:00 [facility] Pneumococcal 2016-01-25 Completed [facility] o f Polysaccharide, 00:00:00 [place] [facility] PPSV23 (PNEUMOVAX) [facility] Influenza Virus 2016-01-25 Completed [facility] IM 3+ 00:00:00 [facility] Pneumococcal 2016-01-25 Completed [facility] o f Polysaccharide, 00:00:00 [facility] PPSV23 (PNEUMOVAX) [facility] Influenza Virus 2016-01-25 Completed [facility] IM 3+ 00:00:00 [facility] Pneumococcal 2016-01-25 Completed [facility] o f Polysaccharide, 00:00:00 [facility] PPSV23 (PNEUMOVAX) Branch Influenza Virus 2016-01-25 Completed [facility] IM 3+ 00:00:00 [facility] Pneumococcal 2016-01-25 Completed [facility] o f Polysaccharide, 00:00:00 [place] [facility] PPSV23 (PNEUMOVAX) Branch Influenza Virus 2016-01-25 Completed [facility] IM 3+ 00:00:00 [facility] Pneumococcal 2016-01-25 Completed [facility] o f Polysaccharide, 00:00:00 [place] [facility] PPSV23 (PNEUMOVAX) Branch Influenza Virus 2016-01-25 Completed [facility] IM 3+ 00:00:00 [facility] Pneumococcal 2016-01-25 Completed [facility] o f Polysaccharide, 00:00:00 [place] [facility] PPSV23 (PNEUMOVAX) Branch Influenza Virus 2016-01-25 Completed [facility] IM 3+ 00:00:00 [facility] Pneumococcal 2016-01-25 Completed [facility] o f Polysaccharide, 00:00:00 [place] [facility] PPSV23 (PNEUMOVAX) Branch Influenza Virus 2016-01-25 Completed [facility] IM 3+ 00:00:00 [facility] Pneumococcal 2016-01-25 Completed [facility] o f Polysaccharide, 00:00:00 [place] [facility] PPSV23 (PNEUMOVAX) Branch Influenza Virus 2016-01-25 Completed [facility] IM 3+ 00:00:00 [facility] Pneumococcal 2016-01-25 Completed [facility] o f Polysaccharide, 00:00:00 [place] [facility] PPSV23 (PNEUMOVAX) Branch Influenza Virus 2016-01-25 Completed [facility] IM 3+ 00:00:00 [facility] Pneumococcal 2016-01-25 Completed [facility] o f Polysaccharide, 00:00:00 [place] [facility] PPSV23 (PNEUMOVAX) Branch Influenza Virus 2016-01-25 Completed [facility] IM 3+ 00:00:00 [facility] Pneumococcal 2016-01-25 Completed [facility] o f Polysaccharide, 00:00:00 [facility] PPSV23 (PNEUMOVAX) Branch Influenza Virus 2016-01-25 Completed [facility]ine [facility] IM 3+ 00:00:00 [facility] Pneumococcal 2016-01-25 Completed [facility] o f Polysaccharide, 00:00:00 [facility] PPSV23 (PNEUMOVAX) [facility] Influenza Virus 2016-01-25 Completed [facility] Vaccine [facility] IM 3+ 00:00:00 [facility] Pneumococcal 2016-01-25 Completed [facility] o f Polysaccharide, 00:00:00 [place] [facility] PPSV23 (PNEUMOVAX) Branch Influenza Virus 2016-01-25 Completed [facility] Vaccine [facility] IM 3+ 00:00:00 [facility] Pneumococcal 2016-01-25 Completed [place] o f Polysaccharide, 00:00:00 [place] [facility] PPSV23 (PNEUMOVAX) Branch Influenza Virus 2016-01-25 Completed [facility] Vaccine [facility] IM 3+ 00:00:00 [facility] Vital Signs Vital Name Observation Time Observation Value Comments Source WEIGHT 2021-10-26 15:36:00 62.5 kg WEIGHT 2021-10-25 05:14:00 62.5 kg WEIGHT 2021-10-26 15:36:00 62.5 kg WEIGHT 2021-10-25 05:14:00 62.5 kg Systolic blood 2019-06-06 19:07:00 161 mm[Hg] Univer sity of pressure [facility] Diastolic blood 2019-06-06 19:07:00 92 mm[Hg] Unive rsity of [facility] Heart rate 2019-06-06 19:07:00 79 /min [facility] Body temperature 2019-06-06 19:07:00 37.22 Nickie [facility] Respiratory rate 2019-06-06 19:07:00 16 /min [facility] Body weight 2019-06-06 19:07:00 51.2 kg [facility] BMI 2019-06-06 19:07:00 17.16 kg/m2 [facility] Oxygen saturation in 2019-06-06 16:39:00 99 /min [facility] Arterial blood by [facility] Pulse oximetry Branch Body height 2019-06-05 13:05:00 172.7 cm Universi [facility] Systolic blood 2019-06-06 19:07:00 161 mm[Hg] Univer sity of [facility] Diastolic blood 2019-06-06 19:07:00 92 mm[Hg] Unive rsity of [facility] Heart rate 2019-06-06 19:07:00 79 /min [facility] Body temperature 2019-06-06 19:07:00 37.22 Nickie [facility] Respiratory rate 2019-06-06 19:07:00 16 /min [facility] Body weight 2019-06-06 19:07:00 51.2 kg [facility] BMI 2019-06-06 19:07:00 17.16 kg/m2 [facility] Oxygen saturation in 2019-06-06 16:39:00 99 /min [facility] of Arterial blood by [facility] maddie Pulse oximetry Branch Body height 2019-06-05 13:05:00 172.7 cm [facility] Systolic blood 2019-06-01 21:16:00 153 mm[Hg] Univer sity of pressure [facility] Diastolic blood 2019-06-01 21:16:00 85 mm[Hg] Unive rsity of pressure [facility] Heart rate 2019-06-01 21:16:00 102 /min [facility] Body temperature 2019-06-01 21:16:00 36.78 Nickie [facility] Respiratory rate 2019-06-01 21:16:00 18 /min [facility] Body weight 2019-06-01 21:16:00 49.5 kg [facility] BMI 2019-06-01 21:16:00 16.59 kg/m2 [facility] Oxygen saturation in 2019-06-01 16:13:00 100 /min [facility] Arterial blood by [facility] Pulse oximetry Branch Body height 2019-06-01 15:02:00 172.7 cm [facility] Systolic blood 2019-06-01 21:16:00 153 mm[Hg] Univer sity of pressure [facility] Diastolic blood 2019-06-01 21:16:00 85 mm[Hg] Unive rsity of pressure [facility] Heart rate 2019-06-01 21:16:00 102 /min [facility] Body temperature 2019-06-01 21:16:00 36.78 Nickie [facility] Respiratory rate 2019-06-01 21:16:00 18 /min [facility] Body weight 2019-06-01 21:16:00 49.5 kg [facility] BMI 2019-06-01 21:16:00 16.59 kg/m2 [facility] Oxygen saturation in 2019-06-01 16:13:00 100 /min [facility] Arterial blood by [facility] maddie Pulse oximetry Branch Body height 2019-06-01 15:02:00 172.7 cm [facility] Systolic blood 2019-05-29 01:00:00 151 mm[Hg] Univer sity of pressure [facility] Diastolic blood 2019-05-29 01:00:00 96 mm[Hg] Unive rsity of pressure [facility] Heart rate 2019-05-29 01:00:00 88 /min [facility] Body temperature 2019-05-29 01:00:00 37 Nickie [facility] Respiratory rate 2019-05-29 01:00:00 20 /min [facility] Oxygen saturation in 2019-05-29 01:00:00 99 /min [facility] Arterial blood by [facility] Pulse oximetry Branch Body weight 2019-05-29 00:00:00 49.5 kg [facility] BMI 2019-05-29 00:00:00 17.61 kg/m2 [facility] Body height 2019-05-28 15:30:00 167.6 cm [facility] Systolic blood 2019-05-29 01:00:00 151 mm[Hg] Univer sity of pressure [facility] Diastolic blood 2019-05-29 01:00:00 96 mm[Hg] Unive rsity of pressure [facility] Heart rate 2019-05-29 01:00:00 88 /min [facility] Body temperature 2019-05-29 01:00:00 37 Nickie [facility] Respiratory rate 2019-05-29 01:00:00 20 /min [facility] Oxygen saturation in 2019-05-29 01:00:00 99 /min [facility] of Arterial blood by [facility] maddie Pulse oximetry Branch Body weight 2019-05-29 00:00:00 49.5 kg [facility] BMI 2019-05-29 00:00:00 17.61 kg/m2 [facility] Body height 2019-05-28 15:30:00 167.6 cm [facility] Systolic blood 2019-05-24 20:00:00 140 mm[Hg] Univer sity of pressure [facility] Diastolic blood 2019-05-24 20:00:00 75 mm[Hg] Unive rsity of pressure [facility] Heart rate 2019-05-24 20:00:00 99 /min [facility] Body temperature 2019-05-24 20:00:00 36.78 Nickie [facility] Respiratory rate 2019-05-24 20:00:00 18 /min [facility] Body height 2019-05-24 14:30:00 172.7 cm [facility] Oxygen saturation in 2019-05-24 13:56:00 100 /min [facility] Arterial blood by [place] [employer] Pulse oximetry [facility] Body weight 2019-05-24 12:41:00 53.524 kg [facility] BMI 2019-05-24 12:41:00 17.94 kg/m2 [facility] Systolic blood 2019-05-24 20:00:00 140 mm[Hg] Univer sity of pressure [facility] Diastolic blood 2019-05-24 20:00:00 75 mm[Hg] Unive rsity of pressure [facility] Heart rate 2019-05-24 20:00:00 99 /min [facility] Body temperature 2019-05-24 20:00:00 36.78 Nickie [facility] Respiratory rate 2019-05-24 20:00:00 18 /min [facility] Body height 2019-05-24 14:30:00 172.7 cm [facility] Oxygen saturation in 2019-05-24 13:56:00 100 /min [facility] Arterial blood by [employer] maddie Pulse oximetry Branch Body weight 2019-05-24 12:41:00 53.524 kg [facility] BMI 2019-05-24 12:41:00 17.94 kg/m2 [facility] Systolic blood 2019-05-20 23:03:00 134 mm[Hg] Univer sity of pressure [facility] Diastolic blood 2019-05-20 23:03:00 81 mm[Hg] Unive rsity of pressure [facility] Heart rate 2019-05-20 23:03:00 101 /min [facility] Body temperature 2019-05-20 23:03:00 37.06 Nickie [facility] Respiratory rate 2019-05-20 23:03:00 18 /min [facility] Body weight 2019-05-20 23:03:00 53.978 kg [facility] BMI 2019-05-20 23:03:00 19.21 kg/m2 [facility] Oxygen saturation in 2019-05-20 17:00:00 98 /min [facility] of Arterial blood by [facility] Pulse oximetry Branch Body height 2019-05-20 14:57:00 167.6 cm [facility] Systolic blood 2019-05-20 23:03:00 134 mm[Hg] Univer sity of pressure [facility] Diastolic blood 2019-05-20 23:03:00 81 mm[Hg] Unive rsity of pressure [facility] Heart rate 2019-05-20 23:03:00 101 /min [facility] Body temperature 2019-05-20 23:03:00 37.06 Nickie [facility] Respiratory rate 2019-05-20 23:03:00 18 /min [facility] Body weight 2019-05-20 23:03:00 53.978 kg [facility] BMI 2019-05-20 23:03:00 19.21 kg/m2 [facility] Oxygen saturation in 2019-05-20 17:00:00 98 /min [facility] Arterial blood by [facility] Pulse oximetry Branch Body height 2019-05-20 14:57:00 167.6 cm [facility] Systolic blood 2019-05-15 21:00:00 128 mm[Hg] Univer sity of pressure [facility] Diastolic blood 2019-05-15 21:00:00 86 mm[Hg] Unive rsity of pressure [facility] Heart rate 2019-05-15 21:00:00 101 /min [facility] Body temperature 2019-05-15 21:00:00 37.17 Nickie [facility] Respiratory rate 2019-05-15 21:00:00 16 /min [facility] Oxygen saturation in 2019-05-15 21:00:00 99 /min [facility] Arterial blood by [facility] maddie Pulse oximetry Branch Body weight 2019-05-15 20:48:00 57 kg [facility] BMI 2019-05-15 20:48:00 19.11 kg/m2 [facility] Systolic blood 2019-05-15 21:00:00 128 mm[Hg] Univer sity of pressure [facility] Diastolic blood 2019-05-15 21:00:00 86 mm[Hg] Unive rsity of pressure [facility] Heart rate 2019-05-15 21:00:00 101 /min [facility] Body temperature 2019-05-15 21:00:00 37.17 Nickie [facility] Respiratory rate 2019-05-15 21:00:00 16 /min [facility] Oxygen saturation in 2019-05-15 21:00:00 99 /min [facility] Arterial blood by [facility] Pulse oximetry Branch Body weight 2019-05-15 20:48:00 57 kg [facility] BMI 2019-05-15 20:48:00 19.11 kg/m2 [facility] Systolic blood 2019-05-11 18:25:00 134 mm[Hg] Univer sity of pressure [facility] Diastolic blood 2019-05-11 18:25:00 76 mm[Hg] Unive rsity of pressure [facility] Heart rate 2019-05-11 18:25:00 99 /min [facility] Body temperature 2019-05-11 18:25:00 36.67 Nickie [facility] Respiratory rate 2019-05-11 18:25:00 18 /min [facility] Body weight 2019-05-11 18:25:00 56 kg [facility] BMI 2019-05-11 18:25:00 18.77 kg/m2 [facility] Oxygen saturation in 2019-05-11 13:00:00 100 /min [facility] of Arterial blood by [facility] maddie Pulse oximetry Branch Body height 2019-05-09 14:45:00 172.7 cm [facility] Systolic blood 2019-05-11 18:25:00 134 mm[Hg] Univer sity of pressure [facility] Diastolic blood 2019-05-11 18:25:00 76 mm[Hg] Unive rsity of pressure [facility] Heart rate 2019-05-11 18:25:00 99 /min [facility] Body temperature 2019-05-11 18:25:00 36.67 Nickie [facility] Respiratory rate 2019-05-11 18:25:00 18 /min [facility] Body weight 2019-05-11 18:25:00 56 kg [facility] BMI 2019-05-11 18:25:00 18.77 kg/m2 [facility] Oxygen saturation in 2019-05-11 13:00:00 100 /min [facility] Arterial blood by [place] [facility] maddie Pulse oximetry Branch Body height 2019-05-09 14:45:00 172.7 cm [facility] Systolic blood 2019-05-07 12:31:00 147 mm[Hg] Univer sity of pressure [facility] Diastolic blood 2019-05-07 12:31:00 82 mm[Hg] Unive rsity of pressure [facility] Heart rate 2019-05-07 12:31:00 73 /min [facility] Respiratory rate 2019-05-07 12:31:00 16 /min [facility] Oxygen saturation in 2019-05-07 12:31:00 100 /min [facility] Arterial blood by [facility] Pulse oximetry Branch Body temperature 2019-05-07 11:40:12 36.22 Nickie [facility] Body weight 2019-05-07 11:37:58 53.524 kg [facility] BMI 2019-05-07 11:37:58 19.05 kg/m2 [facility] Systolic blood 2019-05-07 12:31:00 147 mm[Hg] Univer sity of pressure [facility] Diastolic blood 2019-05-07 12:31:00 82 mm[Hg] Unive rsity of pressure [facility] Heart rate 2019-05-07 12:31:00 73 /min [facility] Respiratory rate 2019-05-07 12:31:00 16 /min [facility] Oxygen saturation in 2019-05-07 12:31:00 100 /min [facility] Arterial blood by [facility] Pulse oximetry Branch Body temperature 2019-05-07 11:40:12 36.22 Nickie [facility] Body weight 2019-05-07 11:37:58 53.524 kg [facility] BMI 2019-05-07 11:37:58 19.05 kg/m2 [facility] Systolic blood 2019-05-04 00:12:00 158 mm[Hg] Univer sity of pressure [facility] Diastolic blood 2019-05-04 00:12:00 94 mm[Hg] Unive rsity of pressure [facility] Heart rate 2019-05-04 00:12:00 103 /min [facility] Body temperature 2019-05-03 23:30:00 36.5 Nickie [facility] Respiratory rate 2019-05-03 23:30:00 18 /min [facility] Oxygen saturation in 2019-05-03 17:00:00 96 /min [facility] of Arterial blood by [facility] Pulse oximetry Branch Body weight 2019-05-03 14:18:00 53.524 kg [facility] BMI 2019-05-03 14:18:00 19.05 kg/m2 [facility] Body height 2019-05-03 12:06:00 167.6 cm [facility] Systolic blood 2019-05-04 00:12:00 158 mm[Hg] Univer sity of pressure [facility] Diastolic blood 2019-05-04 00:12:00 94 mm[Hg] Unive rsity of pressure [facility] Heart rate 2019-05-04 00:12:00 103 /min [facility] Body temperature 2019-05-03 23:30:00 36.5 Nickie [facility] Respiratory rate 2019-05-03 23:30:00 18 /min [facility] Oxygen saturation in 2019-05-03 17:00:00 96 /min [facility] Arterial blood by [employer] maddie Pulse oximetry Branch Body weight 2019-05-03 14:18:00 53.524 kg [facility] BMI 2019-05-03 14:18:00 19.05 kg/m2 [facility] Body height 2019-05-03 12:06:00 167.6 cm [facility] Systolic blood 2019-04-29 19:06:00 187 mm[Hg] Univer sity of pressure [facility] Diastolic blood 2019-04-29 19:06:00 101 mm[Hg] Unive rsity of pressure [facility] Heart rate 2019-04-29 19:06:00 92 /min [facility] Body temperature 2019-04-29 14:30:00 36.44 Nickie [facility] Respiratory rate 2019-04-29 14:30:00 18 /min [facility] Body weight 2019-04-29 14:30:00 55.792 kg [facility] BMI 2019-04-29 14:30:00 18.70 kg/m2 [facility] Oxygen saturation in 2019-04-29 12:59:00 100 /min [facility] Arterial blood by [place] [facility] maddie Pulse oximetry Branch Body height 2019-04-29 12:55:00 172.7 cm [facility] Systolic blood 2019-04-29 19:06:00 187 mm[Hg] Univer sity of pressure [facility] Diastolic blood 2019-04-29 19:06:00 101 mm[Hg] Unive rsity of pressure [facility] Heart rate 2019-04-29 19:06:00 92 /min [facility] Body temperature 2019-04-29 14:30:00 36.44 Nickie [facility] Respiratory rate 2019-04-29 14:30:00 18 /min [facility] Body weight 2019-04-29 14:30:00 55.792 kg [facility] BMI 2019-04-29 14:30:00 18.70 kg/m2 [facility] Oxygen saturation in 2019-04-29 12:59:00 100 /min [facility] by [place] [facility] maddie Pulse oximetry Branch Body height 2019-04-29 12:55:00 172.7 cm [facility] Systolic blood 2019-04-24 19:21:00 184 mm[Hg] [facility] Diastolic blood 2019-04-24 19:21:00 91 mm[Hg] [facility] Heart rate 2019-04-24 19:21:00 98 /min [facility] Body temperature 2019-04-24 19:21:00 36.78 Nickie [facility] [place] [facility] Respiratory rate 2019-04-24 19:21:00 18 /min [facility] Body weight 2019-04-24 19:21:00 52.5 kg [facility] BMI 2019-04-24 19:21:00 17.60 kg/m2 [facility] Oxygen saturation in 2019-04-24 14:33:00 100 /min [facility] [place] [facility] Pulse oximetry Branch Body height 2019-04-24 12:33:00 172.7 cm [facility] Systolic blood 2019-04-24 19:21:00 184 mm[Hg] [facility] Diastolic blood 2019-04-24 19:21:00 91 mm[Hg] [facility] Heart rate 2019-04-24 19:21:00 98 /min [facility] Body temperature 2019-04-24 19:21:00 36.78 Nickie [facility] Respiratory rate 2019-04-24 19:21:00 18 /min [facility] Body weight 2019-04-24 19:21:00 52.5 kg [facility] BMI 2019-04-24 19:21:00 17.60 kg/m2 [facility] Oxygen saturation in 2019-04-24 14:33:00 100 /min [facility] [place] [facility] P[facility]xim[facility] Branch Body height 2019-04-24 12:33:00 172.7 cm [facility] Systolic blood 2019-04-21 01:25:00 157 mm[Hg] [facility] Diastolic blood 2019-04-21 01:25:00 85 mm[Hg] [facility] Heart rate 2019-04-21 01:25:00 102 /min [facility] Body temperature 2019-04-21 01:25:00 36.61 Nickie [facility] Respiratory rate 2019-04-21 01:25:00 18 /min [facility] Body weight 2019-04-21 01:25:00 49.5 kg [facility] BMI 2019-04-21 01:25:00 16.59 kg/m2 [facility] Oxygen saturation in 2019-04-20 16:35:00 99 /min [facility] blood by [facility] Pulse oximetry Branch Body height 2019-04-20 12:19:00 172.7 cm [facility] Systolic blood 2019-04-21 01:25:00 157 mm[Hg] [facility] Diastolic blood 2019-04-21 01:25:00 85 mm[Hg] [facility] Heart rate 2019-04-21 01:25:00 102 /min [facility] Body temperature 2019-04-21 01:25:00 36.61 Nickie [facility] Respiratory rate 2019-04-21 01:25:00 18 /min [facility] Body weight 2019-04-21 01:25:00 49.5 kg [facility] BMI 2019-04-21 01:25:00 16.59 kg/m2 [facility] Oxygen saturation in 2019-04-20 16:35:00 99 /min [facility] Arter[facility] blood by [facility] Pulse oximetry Branch Body height 2019-04-20 12:19:00 172.7 cm [facility] Systolic blood 2019-04-15 20:45:00 179 mm[Hg] [facility] Diastolic blood 2019-04-15 20:45:00 115 mm[Hg] [facility] Heart rate 2019-04-15 20:45:00 102 /min [facility] Body temperature 2019-04-15 20:45:00 36.17 Nickie [facility] Respiratory rate 2019-04-15 20:45:00 18 /min [facility] Body weight 2019-04-15 20:45:00 53 kg [facility] BMI 2019-04-15 20:45:00 17.77 kg/m2 [facility] Oxygen saturation in 2019-04-15 13:00:00 100 /min [facility] Arterial blood by [facility] Pulse oximetry Branch Body height 2019-04-15 12:45:00 172.7 cm [facility] [place] [facility] Systolic blood 2019-04-15 20:45:00 179 mm[Hg] [facility]iver [facility]ity of pressure [facility] Diastolic blood 2019-04-15 20:45:00 115 mm[Hg] [facility]ive [facility]ity of [facility] Heart rate 2019-04-15 20:45:00 102 /min [facility]i ty [facility] Body temperature 2019-04-15 20:45:00 36.17 Nickie [facility] 2019-04-15 20:45:00 18 /min [facility] Body weight 2019-04-15 20:45:00 53 kg Universi ty [facility] BMI 2019-04-15 20:45:00 17.77 kg/m2 [facility] Oxygen saturation in 2019-04-15 13:00:00 100 /min University Arterial blood by [facility] Pulse oximetry Branch Body height 2019-04-15 12:45:00 172.7 cm [facility] Systolic blood 2021-10-26 19:45:00 131 mm[Hg] [facility] Diastolic blood 2021-10-26 19:45:00 82 mm[Hg] [facility] Heart rate 2021-10-26 19:45:00 90 /min [facility] Body temperature 2021-10-26 19:45:00 35.78 Nickie [facility] Respiratory rate 2021-10-26 19:45:00 20 /min [facility] Oxygen saturation in 2021-10-26 19:45:00 96 /min [facility] Arterial blood by [facility] nter Pulse oximetry Body weight 2021-10-26 18:35:00 60.5 kg [facility] BMI 2021-10-26 18:35:00 21.53 kg/m2 [facility] Procedures Procedure Date / Time Performing Clinician Source Performed POCT-GLUCOSE METER 2021-10-26 [facility]ney [facility] 20:[facility]00 [facility] POCT-GLUCOSE METER 2021-10-26 Gadicherla, Lupe [facility] - 17:38:00 [facility] BASIC METABOLIC PANEL 2021-10-[address] [facility] - (7) 16:19:00 [facility] HEMODIALYSIS INPATIENT 2021-10-[address] - 15:52:22 [facility] [place] PTH, INTACT 2021-10-26 Worah, Junior [facility] - 15:44:00 [facility] MAGNESIUM 2021-10-[address] [facility] - 15:43:00 [facility] Center PHOSPHORUS 2021-10-[address] [facility] - 15:43:00 [facility] HEPATITIS B SURFACE 2021-10-[address] [facility] - ANTIGEN 15:43:00 [facility] CBC W/PLT COUNT & AUTO 2021-10-[address] [facility] - DIFFERENTIAL 15:43:00 [facility] CBC W/PLT COUNT & AUTO 2021-10-[address] [facility] - DIFFERENTIAL 15:43:00 [facility] POCT-GLUCOSE METER 2021-10-26 Gadicherla, Lupe [facility] - 12:13:00 [facility] POCT-GLUCOSE METER 2021-10-26 Gadicherla, Lupe [facility] - 08:37:00 [facility] POCT-GLUCOSE METER 2021-10-25 Gadicherla, Lupe [facility] - 20:41:00 [facility] POCT-GLUCOSE METER 2021-10-25 Gadicherla, Lupe [facility] - 18:11:00 [facility] POCT-GLUCOSE METER 2021-10-25 Gadicherla, Lupe [facility] - 12:59:00 [facility] POCT-GLUCOSE METER 2021-10-25 Gadicherla, Lupe [facility] - 12:30:00 [facility] POCT-GLUCOSE METER 2021-10-25 Gadicherla, Lupe [facility] - 07:49:00 [facility] CBC W/PLT COUNT & AUTO 2021-10-[address] [facility] - DIFFERENTIAL 05:11:00 [facility] (CELLAVISION MANUAL 2021-10-[address] [facility] - DIFF) 05:11:00 Medical Center CBC W/PLT COUNT & AUTO 2021-10-[address] [facility] - DIFFERENTIAL 05:11:00 [facility] BASIC METABOLIC PANEL 2021-10-25 [facility] Sweeney [facility] - (7) 05:11:00 [facility] MAGNESIUM 2021-10-[address] [facility] - 05:11:00 [facility] PHOSPHORUS 2021-10-[address] [facility] - 05:11:00 [facility] PROTHROMBIN TIME/INR 2021-10-25 Chet Sweeney [facility] - 05:11:00 [facility] KETONE, BLOOD 2021-10-[address] [facility] - 05:11:00 [facility] POCT-GLUCOSE METER 2021-10-[address] [facility] - 01:57:00 [facility] Center CBC W/PLT COUNT & AUTO 2021-10-[address] [facility] - DIFFERENTIAL 21:01:00 [facility] (CELLAVISION MANUAL 2021-10-[address] [facility] - DIFF) 21:01:00 [facility] Center CBC W/PLT COUNT & AUTO 2021-10-[address] [facility] - DIFFERENTIAL 21:01:00 [facility] COMPREHENSIVE METABOLIC 2021-10-[address] [facility] - PANEL 21:01:00 [facility] MAGNESIUM 2021-10-[address] [facility] - 21:01:00 Medical Center PHOSPHORUS 2021-10-[address] [facility] - 21:01:00 [facility] PROTHROMBIN TIME/INR 2021-10-[address] [facility] - 21:01:00 [facility] LACTIC ACID, VENOUS 2021-10-[address] [facility] - 21:01:00 [facility] B-TYPE NATRIURETIC 2021-10-24 Chet Sweeney [facility] - FACTOR (BNP) 21:01:00 Medical Center TSH/FREE T4 IF INDICATED 2021-10-[address] [facility] - 21:01:00 [facility] PROCALCITONIN 2021-10-[address] [facility] - 21:01:00 [facility] POCT-GLUCOSE METER 2021-10-[address] [facility] - 20:32:00 [facility] POCT-GLUCOSE METER 2021-10-[address] [facility] - 18:27:00 [facility] REPORT OF PROCEDURE - 2021-10-24 Provider, Jose Salcedo - ENDOSCOPY SCAN 00:00:00 [facility] [id number] 2021-01-23 ENCPL 00:00:00 [id number] 2021-01-23 ENCPL 00:00:00 [id number] 2021-01-23 ENCPL 00:00:00 5X3T52I 2021-01-23 ENCPL 00:00:00 7C3A68D 2021-01-23 ENCPL 00:00:00 8U4J91U 2021-01-23 ENCPL 00:00:00 2X5E37Z 2021-01-23 ENCPL 00:00:00 0E9A90L 2021-01-23 ENCPL 00:00:00 9R4E69F 2021-01-23 ENCPL 00:00:00 3P4S65U 2021-01-23 ENCPL 00:00:00 1Y8B84U 2021-01-23 ENCPL 00:00:00 8V1A52G 2021-01-23 ENCPL 00:00:00 8Q7V13G 2021-01-23 ENCPL 00:00:00 9Z0P79E 2021-01-23 ENCPL 00:00:00 5U7V49K 2021-01-23 ENCPL 00:00:00 6H5B27S 2021-01-23 ENCPL 00:00:00 2W0F03N 2021-01-23 ENCPL 00:00:00 4G6P33S 2021-01-23 ENCPL 00:00:00 4U2R76D 2021-01-23 ENCPL 00:00:00 6G5C89R 2021-01-23 ENCPL 00:00:00 4F8U80H 2021-01-23 ENCPL 00:00:00 3J5A52J 2021-01-23 ENCPL 00:00:00 8R4G24J 2021-01-23 ENCPL 00:00:00 8J6I97Q 2021-01-23 ENCPL 00:00:00 1Q9F29W 2021-01-23 ENCPL 00:00:00 7X5H70D 2021-01-23 ENCPL 00:00:00 INSURANCE CORRESPONDENCE 2020-10-08 Doctor Unassigned, No [facility] 06:01:00 Name Medical Branch AUTHORIZATION FOR 2019-10-02 Doctor Unassigned, No [facility] RELEASE OF PHI 06:01:00 Name Medical [place] POCT GLUCOSE (AUTOMATED) 2019-06-06 [facility] 14:56:00 Medical Branch PREPARE PACKED RBC 2019-06-06 [facility] 14:25:25 Medical Branch POCT GLUCOSE (AUTOMATED) 2019-06-06 [facility] 12:28:00 Medical Branch MAGNESIUM 2019-06-06 [facility] xas 10:34:00 Medical Branch COMP. METABOLIC PANEL 2019-06-06 [facility] ([id number]) 10:34:00 Medical Branch CBC WITH DIFFERENTIAL 2019-06-06 [facility] 10:34:00 Medical Branch POCT GLUCOSE (AUTOMATED) 2019-06-06 [facility] 05:34:00 Medical Branch POCT GLUCOSE (AUTOMATED) 2019-06-06 [facility] 01:48:00 Medical Branch POCT GLUCOSE (AUTOMATED) 2019-06-05 [facility] 17:08:00 Medical Branch TYPE AND SCREEN 2019-06-05 Nancy Torres [facility] [place] 15:12:00 Medical Branch EKG-12 LEAD 2019-06-05 [facility] 14:21:04 Medical Branch EKG-12 LEAD 2019-06-05 [facility] 14:15:54 Medical Branch CBC WITH DIFFERENTIAL 2019-06-05 Nancy Torres [facility] 13:47:00 Medical Branch GLYCOSYLATED HEMOGLOBIN 2019-06-05 [facility] (A1C) 13:47:00 Medical Branch BASIC METABOLIC PANEL 2019-06-05 Marylousung Nancy [facility] (NA, K, CL, CO2, 13:25:00 Medical Branch GLUCOSE, BUN, CREATININE, CA) EKG-12 LEAD 2019-06-01 [facility] 12:26:24 Medical Branch COMP. METABOLIC PANEL 2019-06-01 [facility] ([id number]) 12:11:00 Medical Branch CBC WITH DIFFERENTIAL 2019-06-01 [facility] 12:10:00 Medical Branch POCT GLUCOSE (AUTOMATED) 2019-05-28 [facility] 21:07:00 Medical Branch POCT GLUCOSE (AUTOMATED) 2019-05-28 [facility] 16:27:00 Medical Branch POCT GLUCOSE (AUTOMATED) 2019-05-28 [facility] [address] 14:33:00 Medical Branch HEPATIC FUNCTION PANEL 2019-05-28 [facility] ([id number]) (ALB,T.PRO,BILI 13:11:00 Medical Branch T,BU/BC,ALT,AST,ALK PHOS) BASIC METABOLIC PANEL 2019-05-28 [facility] (NA, K, CL, CO2, 13:11:00 Medical Branch GLUCOSE, BUN, CREATININE, CA) CBC WITH DIFFERENTIAL 2019-05-28 [facility] 13:11:00 Medical Branch POCT GLUCOSE (AUTOMATED) 2019-05-28 [facility] [address] 13:10:00 Medical Branch POCT GLUCOSE (AUTOMATED) 2019-05-24 James Parker [facility] 16:18:00 Medical Branch HEPATIC FUNCTION PANEL 2019-05-24 [facility] ([id number]) (ALB,T.PRO,BILI 12:58:00 Medical Branch T,BU/BC,ALT,AST,ALK PHOS) BASIC METABOLIC PANEL 2019-05-24 [facility] (NA, K, CL, CO2, 12:58:00 Medical Branch GLUCOSE, BUN, CREATININE, CA) CBC WITH DIFFERENTIAL 2019-05-24 [facility] 12:58:00 Medical Branch EKG-12 LEAD 2019-05-24 [facility] [place] 12:43:28 Medical Branch NOTICE OF PRIVACY 2019-05-24 Doctor Unassigned, No [facility] PRACTICES 12:20:28 Name Medical Branch CONSENT/REFUSAL FOR 2019-05-24 Doctor Unassigned, No [facility] DIAGNOSIS AND TREATMENT 12:20:06 Name Medical Branch HEPATITIS B SURFACE 2019-05-20 Jarvis, [facility] ANTIBODY 19:03:00 [facility] HEPATITIS B SURFACE 2019-05-20 [facility] 19:03:00 [facility] POCT GLUCOSE (AUTOMATED) 2019-05-20 James Parker [facility] 16:07:00 Medical Branch EKG-12 LEAD 2019-05-20 Flower Martin [facility] 13:27:58 Medical Branch BASIC METABOLIC PANEL 2019-05-20 Flower Martin [facility] (NA, K, CL, CO2, 12:46:00 Medical Branch GLUCOSE, BUN, CREATININE, CA) CBC WITH DIFFERENTIAL 2019-05-20 Flower Martin [facility] 12:46:00 Medical Branch EKG-12 LEAD 2019-05-20 Flower Martin [facility] 12:33:38 Medical Branch POCT GLUCOSE (AUTOMATED) 2019-05-15 [facility] 21:38[facility]00 [facility] POCT GLUCOSE (AUTOMATED) 2019-05-15 ManjinderJesus [facility] 16:32:00 Medical Branch POCT GLUCOSE (AUTOMATED) 2019-05-15 ManjinderJesus [facility] 13:58:00 Medical Branch COMP. METABOLIC PANEL 2019-05-15 [id number] 12:42:00 Medical Branch CBC WITH DIFFERENTIAL 2019-05-15 [facility] 12:42:00 Medical Branch POCT GLUCOSE (AUTOMATED) 2019-05-15 Doctor Unassigned, No [facility] 12:20:00 Name Medical Branch CONSENT/REFUSAL FOR 2019-05-15 Doctor Unassigned, No [facility] DIAGNOSIS AND TREATMENT 12:14:25 Name Medical Branch POCT GLUCOSE (AUTOMATED) 2019-05-11 [facility], Jesus [facility] 16:40:00 Medical Branch POCT GLUCOSE (AUTOMATED) 2019-05-11 [facility] ity [facility] 12:48:00 Medical Branch POCT GLUCOSE (AUTOMATED) 2019-05-11 [facility] ity [facility] 04:32:00 Medical Branch POCT GLUCOSE (AUTOMATED) 2019-05-[address] [facility] ity [facility] 01:30:00 Medical Branch BASIC METABOLIC PANEL 2019-05-10 [facility] (NA, K, CL, CO2, 20:19:00 Medical Branch GLUCOSE, BUN, CREATININE, CA) XR CHEST 1 VW 2019-05-10 [facility] [place] 19:19:03 Medical Branch FL TIME OR 2019-05-10 [facility] (NON-REPORTABLE) 17:49:37 Medical Branch POCT GLUCOSE(AGE 2019-05-10 [facility] 16:03:00 Medical Branch POCT GLUCOSE (AUTOMATED) 2019-05-[address] [facility] ity [facility] 13:04:00 Medical Branch POCT GLUCOSE (AUTOMATED) 2019-05-10 [facility] ity [facility] 09:30:00 Medical Branch POCT GLUCOSE (AUTOMATED) 2019-05-10 [facility] ity [facility] 01:04:00 Medical Branch POCT GLUCOSE (AUTOMATED) 2019-05-09 [facility] ity [facility] 21:25:00 Medical Branch POCT GLUCOSE (AUTOMATED) 2019-05-09 [facility] ity [facility] 16:42:00 Medical Branch POCT GLUCOSE (AUTOMATED) 2019-05-09 [facility] ity [facility] 15:12:00 Medical Branch POCT GLUCOSE (AUTOMATED) 2019-05-09 [facility] ity [facility] 15:11:00 Medical Branch BASIC METABOLIC PANEL 2019-05-09 Nancy Torres [facility] (NA, K, CL, CO2, 12:56:00 Medical Branch GLUCOSE, BUN, CREATININE, CA) COMP. METABOLIC PANEL 2019-05-07 Andrey Barrios [facility] ([id number]) 11:59:00 Medical Branch PROFILE / HEMOGRAM 2019-05-07 [facility] 11:59:00 Medical Branch CONSENT/REFUSAL FOR 2019-05-07 Doctor Unassigned, Nasreen [facility] DIAGNOSIS AND TREATMENT 11:26:49 Name Medical Branch POCT GLUCOSE (AUTOMATED) 2019-05-03 [facility] 20:37:00 Medical Branch POCT GLUCOSE (AUTOMATED) 2019-05-03 [facility] 16:44:00 Medical Branch POCT GLUCOSE (AUTOMATED) 2019-05-03 [facility] 14:20:00 [facility] HEPATIC FUNCTION PANEL 2019-05-03 [facility] ([id number]) (ALB,T.PRO,BILI 12:17:00 Medical Branch T,BU/BC,ALT,AST,ALK PHOS) BASIC METABOLIC PANEL 2019-05-03 [facility] (NA, K, CL, CO2, 12:17:00 Medical Branch GLUCOSE, BUN, CREATININE, CA) CBC WITH DIFFERENTIAL 2019-05-03 [facility] 12:17:00 [facility] EKG-12 LEAD 2019-05-03 [facility] 12:05:31 [facility] POCT GLUCOSE (AUTOMATED) 2019-04-29 [facility] 16:46:00 [facility] POCT GLUCOSE (AUTOMATED) 2019-04-29 [facility] 12:48:00 [facility] BASIC METABOLIC PANEL 2019-04-29 [facility] (NA, K, CL, CO2, 11:20:00 Medical Branch GLUCOSE, BUN, CREATININE, CA) CBC WITH DIFFERENTIAL 2019-04-29 [facility] 11:20:00 Medical Branch POCT GLUCOSE (AUTOMATED) 2019-04-24 [facility] 21:05:00 Medical Branch POCT GLUCOSE (AUTOMATED) 2019-04-24 [facility] 16:43:00 Medical Branch POCT GLUCOSE (AUTOMATED) 2019-04-24 [facility] 14:05:00 Medical Branch EKG-12 LEAD 2019-04-24 Flower Martin [facility] 12:43:48 Medical Branch BASIC METABOLIC PANEL 2019-04-24 Flower Martin [facility] (NA, K, CL, CO2, 12:43:00 Medical Branch GLUCOSE, BUN, CREATININE, CA) POCT GLUCOSE (AUTOMATED) 2019-04-21 [facility] 01:21:00 Medical Branch POCT GLUCOSE (AUTOMATED) 2019-04-20 [facility] 21:30:00 Medical Branch POCT GLUCOSE (AUTOMATED) 2019-04-20 [facility] 20:34:00 Medical Branch HEPATIC FUNCTION PANEL 2019-04-20 [facility] ([id number] (ALB,T.PRO,BILI 12:38:00 Medical Branch T,BU/BC,ALT,AST,ALK PHOS) BASIC METABOLIC PANEL 2019-04-20 Denis [facility] (NA, K, CL, CO2, 12:38:00 Medical Branch GLUCOSE, BUN, CREATININE, CA) CBC WITH DIFFERENTIAL 2019-04-20 [facility] 12:38:00 Medical Branch EKG-12 LEAD 2019-04-20 [facility] 12:25:59 Medical Branch POCT GLUCOSE (AUTOMATED) 2019-04-15 [facility] 20:32:00 Medical Branch POCT GLUCOSE (AUTOMATED) 2019-04-15 [facility] 16:32:00 Medical Branch POCT GLUCOSE (AUTOMATED) 2019-04-15 [facility] 12:46:00 Medical Branch HEPATIC FUNCTION PANEL 2019-04-15 [facility] ([id number][facility] (ALB,T.PRO,BILI 11:25:00 Medical Branch T,BU/BC,ALT,AST,ALK PHOS) BASIC METABOLIC PANEL 2019-04-15 [facility] (NA, K, CL, CO2, 11:25:00 Medical Branch GLUCOSE, BUN, CREATININE, CA) CBC WITH DIFFERENTIAL 2019-04-15 [facility] 11:25:00 Medical Branch EKG-12 LEAD 2019-04-15 Andrey Barrios [facility] xa 11:16:07 Medical Branch Plan of Care Planned Activity Planned Date Details Comments Source Future Scheduled [address] [facility] - Test 00:00:00 0-64 YRS (2 of 2 - Medical C enter PPSV23) [code = PNEUMOCOCCAL VACCINE 0-64 YRS (2 of 2 - PPSV23)] Future Scheduled 2021-09-[address] [facility] - Test 00:00:00 (12+) [code = Medical Center DEPRESSION SCREENING (12+)] Future Scheduled 2021-05-19 INFLUENZA VACCINE (#1) [facility] 00:00:00 [code = INFLUENZA Medical Ce nter VACCINE (#1)] Future Scheduled 2019-11-[address] [facility] 00:00:00 (procedure) [code = Medical Center 77877159] Future Scheduled 2017-06-[address] [facility] Test 00:00:00 measurement Medical Center (procedure) [code = 65844592] Future Scheduled 1992 DTAP/TDAP/TD VACCINES [facility] Test 00:00:00 (1 - Tdap) [code = Medical C enter DTAP/TDAP/TD VACCINES (1 - Tdap)] Future Scheduled 1991 HEPATITIS C [facility]CRE[facility]ING [facility] Test 00:00:00 [code = HEPATITIS C Medical Center SCREENING] Future Scheduled [address] EYE EXAM [facility] - Test 00:00:00 [code = DIABETIC EYE Medical Center EXAM] Future Scheduled [address] [facility] 00:[facility]00 examination Medical Center (regime/therapy) [code = 263240765] Future Scheduled 1983 Urine screening for [facility] - Test 00:00:00 protein (procedure) Medical Center [code = 635411059] Future Scheduled [address] [facility] Test 00:00:00 malignant neoplasm of Medica l Center colon (procedure) [code = 181580471] Encounters Start End Encounter Admission Attending Care Care Encounter Source Date/Time Date/Time Type Type Clinicians Facility Department ID 2021-10-14 Outpatient 3 [facility] ENCPL KAITLYNN [id number] ENCPL 12:05:40 jorge, 0507 Bobbivelbrianne 2021-10-14 Outpatient 3 [id number] ENCPL KAITLYNN [id number] ENCPL 12:04:57 0506 2021-10-14 Outpatient 3 [id number] ENCPL REF [id number] ENCPL 12:04:34 0505 2021-10-13 Outpatient [place], [facility] [id number] 14[facility]35[facility] 2021-11-04 2021-11-04 ambulatory [facility] [id number] [facility] 2021-10-24 2021-10-26 Hospital UR Lisa Kim [facility] [id number] [facility] 16:30:00 21:50:[address] [facility] 2021-10-24 2021-10-26 Inpatient UR [facility] Medical ICU [id number] [facility] 16:30:00 21:50:00 [facility] 2021-10-24 2021-10-24 Travel [facility] [id number] [facility]00 [facility] 2021-10-24 2021-10-24 Graciela Ford [facility] [id number] 00:00:00 00:00:00 Only [facility] 2021-10-24 2021-10-24 Licha Guillen [facility] [id number] [facility] 2021-10-01 2021-10-01 ambulatory [facility] [id number] [facility] 2021-01-03 2021-01-03 Outpatient [facility] [id number] [facility] 13:25:00 13:25:00 [facility] 2021-01-02 2021-01-02 Outpatient [facility] [id number] Univers 13:25:00 13:25:00 ity of [facility] 2020-12-13 2020-12-13 Outpatient Pau FRANCOIS, [facility] [id number] Univers 13:20:00 13:20:00 SHELDON ity of [facility] 2020-10-08 2020-10-08 Orders Doctor ALVAREZ 1.2.840.114 [id number] 00:00:00 00:00:00 Only Unassigned, TISHA 350.1.13.10 [facility] 4.2.7.2.686 [id number] [id number] 2020-10-08 2020-10-08 Orders Doctor ANTONIO 1.2.840.[id number] [facility] 00:00:00 00:00:00 Only Unassigned, TISHA 350.1.13.10 ity of [facility] 4.2.7.2.686 Helder as [phone] [address] 2019-10-02 2019-10-02 Orders Doctor ALVAREZ 1.2.840.114 [id number] Univers 00:00:00 00:00:00 Only Unassigned, TISHA 350.1.13.10 ity of [facility] 4.2.7.2.686 Helder as [phone] [address] 2019-10-02 2019-10-02 Orders Doctor ALVAREZ 1.2.840.114 [id number] 00:00:00 00:00:00 Only Unassigned, TISHA 350.1.13.10 [facility] 4.2.7.2.686 [id number] [facility] 2019-06-05 2019-06-06 Emergency Nancy Torres [facility] 1.2.[id number] [facility] 07:59:43 14:59:00 Mak Ellison 350.1.13.10 ity of [place] 4.2.7.2.686 [facility] [phone] [address] 2019-06-05 2019-06-06 Emergency Nancy Torres [facility] 1.2.840 .114 [id number] 07:59:43 14:59:00 Mak Ellison 350.1.13.10 [place] 4.2.7.2.686 [place] [phone] [facility] 2019-06-01 2019-06-01 Emergency Luca Jackson [facility] 1.2.840. [id number] [facility] 06:56:22 17:52:00 Jesus Marshall [id number] ity of [place] 4.2.7.[address] [place] [phone] 2019-06-01 2019-06-01 Emergency Luca Jackson [facility] 1.2.840. 114 [id number] 06:56:22 17:52:00 Jesus Marshall 350.1.13.10 [place] [address] [place] [address] [phone] [facility] 2019-05-28 2019-05-28 Emergency Andrey Barrios [facility] 1.2.840. [id number] [facility] 07:49:46 20:40:00 Jesus Marshall 350.1.13.10 ity of [place] 4.2.7.[address] [place] [phone] 2019-05-28 2019-05-28 Emergency Andrey Barrios [facility] 1.2.840. 114 [id number] 07:49:46 20:40:00 Jesus Marshall 350.1.13.10 [place] 4.2.7.2.686 [place] [phone] [facility] 2019-05-24 2019-05-24 Emergency Andrey Barrios [facility] 1.2.840. [id number] [facility] 07:36:09 16:15:00 James Parker 350.1.13.10 ity of [place] [address].7.[address] [place] [phone] 2019-05-24 2019-05-24 Emergency Andrey Barrios [facility] 1.2.840. 114 [id number] 07:36:09 16:15:00 James Parker 350.1.13.10 [place] [address] [place] [address] [id number] [facility] 2019-05-20 2019-05-20 Emergency Flower Martin [facility] 1.2.[id number] [facility] 07:34:17 19:50:00 James Parker 350.1.13.10 ity of [place] 4.2.7.2.686 [facility] [phone] [place] [address] [place] 2019-05-20 2019-05-20 Emergency Flower Martin [facility] 1.2.8 40.114 [id number] 07:34:17 19:50:00 James Parker 350.1.13.10 [place] 4.2.7.2.686 [place] [phone] [facility] 2019-05-15 2019-05-15 Emergency Luca Jackson [facility] 1.2.840. [id number] [facility] 07:17:11 18:48:00 Jesus Marshall 350.1.13.10 ity of [place] [address]7.[address] [place] [address] [phone] [place] [address] [place] 2019-05-15 2019-05-15 Emergency Luca Jackson [facility] 1.2.840. 114 [id number] 07:17:11 18:48:00 Jesus Marshall 350.1.13.10 [place] 4.2.7.2.686 [place] [phone] [facility] 2019-05-09 2019-05-11 Emergency Nancy Torres S [facility] 1.2.[id number] [facility] 07:23:22 15:03:00 Jesus Marshall 350.1.13.10 ity of [place] [address]7.2.[address] [place] [address] [phone] [place] [address] [place] 2019-05-09 2019-05-11 Emergency Nancy Torres S [facility] 1.2.840 .114 [id number] 07:23:22 15:03:00 Jesus Marshall 350.1.13.10 [place] [address] [place] [address] [phone] [facility] 2019-05-07 2019-05-07 Emergency Denis [facility] 1.2.089.[id number] [facility] 06:36:08 08:19:00 Andrey Mcdermitt 350.1.13.10 i ty of [place] 4.2.7.2.686 [facility] [phone] [place] [address] [place] 2019-05-07 2019-05-07 Emergency Denis, [facility] 1.2.708.227 [id number] 06:36:08 08:19:00 Andrey Mcdermitt 350.1.13.10 [place] 4.2.7.2.686 [place] [phone] [facility] 2019-05-03 2019-05-03 Emergency Andrey Barrios [facility] 1.2.840. [id number] [facility] 07:04:51 19:40:00 Movguru, Caleb Mcdermitt 350.1.13.10 ity of [place] [address]7.2.[address] [place] [phone] 2019-05-03 2019-05-03 Emergency Andrey Barrios [facility] 1.2.840. 114 [id number] 07:04:51 19:40:00 Movguru, Caleb Mcdermitt 350.1.13.10 [place] [address] [place] [phone] [facility] 2019-04-29 2019-04-29 Emergency Nancy Torres [facility] 1.2.[id number] [facility] 06:03:54 16:18:00 OernieBebejackelyn Jaklam Mcdermitt 350.1.13.10 ity of [place] [address]7.[address] [place] [phone] 2019-04-29 2019-04-29 Emergency Nancy Torres [facility] 1.2.840 .114 [id number] 06:03:54 16:18:00 OyarebeccaeBebea Jaklam Mcdermitt 350.1.13.10 [place] [address] [place] [address] [phone] [facility] 2019-04-24 2019-04-24 Emergency Flower Martin [facility] 1.2.8 40.114 [id number] Univers 07:32:53 17:15:00 Scot, Mak Mcdermitt 350.1.13.10 ity of [place] 4.2.7.2.686 [facility] [phone] [address] 2019-04-24 2019-04-24 Emergency Flower Martin [facility] 1.2.8 40.114 [id number] 07:32:53 17:15:00 ScotMak morris Mcdermitt 350.1.13.10 [place] 4.2.7.2.686 [place] [phone] [facility] 2019-04-20 2019-04-20 Emergency Andrey Barrios [facility] 1.2.840. [id number] [facility] 07:35:56 21:13:00 Scot, Albertojaret Mcdermitt 350.1.13.10 ity of [place] 4.2.7.2.686 [facility] [phone] [address] 2019-04-20 2019-04-20 Emergency Andrey Barrios [facility] 1.2.840. 114 [id number] 07:35:56 21:13:00 Scot, Mak Mcdermitt 350.1.13.10 [place] 4.2.7.2.686 [place] [phone] [facility] 2019-04-15 2019-04-15 Emergency Andrey Barrios [facility] 1.2.840. [id number] [facility] 06:12:02 17:50:00 Movva, Caleb Mcdermitt 350.1.13.10 ity of [place] [address].7.[address] [place] [address] [phone] 2019-04-15 2019-04-15 Emergency Andrey Barrios [facility] 1.2.840. 114 [id number] 06:12:02 17:50:00 Movva, Caleb Mcdermitt 350.1.13.10 [place] [address] [place] [address] [phone] 1 Results Test Description Test Time Test Comments Results Result [facility] e Comments ANG, TUNNELED 2021-10-28 Reason for Central CATHETER 10:43:00 Line/PICC?->Need INSERTION for hemodialysis accessReason for MERRILL BROWN - exam:->needs [facility] BEV WARREN : 1975 Sex: M *FINAL REPORT 1. Tunneled dialysis catheter insertion. 2. Central venogram History: Renal failure. Modality: Sonography and fluoroscopy. Sedation: Moderate sedation was administered. 1 mg of Versed and 50 mcg of fentanyl IV was used for moderate sedation monitored under my direction. Total intra-service time of sedation was 60 minutes. The patient's vital signs were monitored throughout the procedure and recorded in the patient's medical record by the nurse. Porcelain Turner: Gary Acosta M.D. Form Building Supervisor: Tor Aburto MD. Approach: Right internal jugular vein Estimated blood loss: < 5 cc. Specimen: None. Fluoroscopy Time: 11 min. Dose (Ka,r): 70 mGy. Technique: Informed written consent was obtained. Discussion of risks, benefits, and alternatives were made with the patient. The patient expressed understanding and agreed to proceed. All elements maximal sterile barrier technique was utilized for this procedure, including utilization of sterile scrub solution for skin prep, a large sterile sheet to cover the areas of the patient that were not prepped, and hand hygiene, mask, head covering, and sterile gown for performing radiologist and scrub technologist. The skin was anesthetized with 2% lidocaine.Ultrasound evaluation showed a patent and compressible left internal jugular vein, which was punctured under direct real-time ultrasound guidance with a micropuncture needle. An ultrasound image was saved to PACS. Initial attempts to place an 018 wire through the needle and into the stent into the right atrium were unsuccessful as distended as under size and there is flow adjacent to the stent within the left brachiocephalic vein. Access upsized to an 035 catheter and a J-wire were used along with a directional catheter to navigate the stent into the right atrium. Wire and catheter were advanced into the IVC. A subcutaneous tunnel was created in the left anterior chest wall by blunt dissection. A 23 cm tip to cuff 15.5 Hebrew Duraflow 2 catheter was brought through the tunnel. The vessel tract was serially dilated. A peel-away sheath was placed in the left IJ vein and the catheter was advanced through the sheath, with its distal tip terminating in the superior right atrium. The peel-away sheath was removed. The ports were flushed and aspirated easily following placement. The catheter was sutured to the skin to secure its placement. The small jugular incision site was closed using Dermabond. Vital signs were monitored throughout the procedure by a nurse, and remained stable. The patient tolerated the procedure well and left the department in the same condition. Results: Spot radiograph of the chest demonstrates the new dialysis catheter to lie in the expected position with its tip overlying the superior right atrium. Impression: Successful, uncomplicated placement of a left internal jugular tunneled dialysis catheter using sonographic and fluoroscopic guidance and conscious sedation.Central venogram demonstrates patent stent and flow around the stent due to stent not being large enough for the vein. Signed: Gary Acosta MDReport Verified Date/Time: 10/28/2021 10:43:27 Reading Location: [facility] Diagnostic Imaging Reading Room - [facility] 1310.12 -Glucose meter 2021-10-26 21:27:43 Test Item Value Reference Range Interpretation Comme nts POC-Glucose Meter (test code = 210 mg/dL 70-110 H : TESTED AT [facility] [address] [facility] 1538) [facility], 770 30: Mathematics Professor/Techni nora ID = [id number] for Stewart (contrac t), Tiffani Lab Interpretation (test code = Abnormal 88327-9) [facility] [id number] 21:27:43 Test Item Value Reference Range Interpretation Comments POC-GLUCOSE METER 210 mg/dL 70-110 H : TESTED A T [facility] [address] (BEAKER) (test code = BERTDAVID R [facility], 1538) [address]: Mathematics Professor/Techni nora ID = [id number] for Ng lynette (contract), Lovelace ra Hepatitis B surface [id number] 18:08:25 Test Item Value Reference Range Interpretation Comments HBsAg Screen (test code Nonreactive Nonreactive = 5195-3) DAVID (test code = DAVID) Specimen is considered negative for HBsAg. Lab Interpretation (test Normal code = 41425-8) [facility] [id number] 18:08:25 Test Item Value Reference Range Interpretation Comments HEPATITIS B SURFACE ANTIGEN (2) Nonreactive Nonreactive (BEAKER) (test code = 2585) Specimen is considered negative for HBsAg.POCT-GLUCOSE [id number] 17:50:23 Test Item Value Reference Range Interpretation Comments POC-GLUCOSE METER 174 mg/dL 70-110 H : TESTED A T [facility] [address] (BEAKER) (test code = [place], 1538) [address]: Mathematics Professor/Techni nora ID = [id number] for Valorie Dickerson Basic Metabolic [id number] 17:04:22 Test Item Value Reference Range Interpretation Comments Sodium (test code = 133 meq/L 136-145 L 2951-2) Potassium (test code = 4.8 meq/L 3.5-5.1 Speci men slightly 2823-3) hemolyzed Chloride (test code = 99 meq/L 98-107 2075-0) CO2 (test code = 19 meq/L 22-29 L 2028-9) BUN (test code = 71 mg/dL 7-21 H 3094-0) Creatinine (test code 5.99 mg/dL 0.57-1.25 H Specim en slightly = 2160-0) hemolyzed Glucose (test code = 250 mg/dL 70-105 H 2345-7) Calcium (test code = 8.1 mg/dL 8.4-10.2 L 96541-9) EGFR (test code = 10 mL/min/1.73 [place] [address]-5) NOT ACCURATE CREATININE CLEARANCE IN PREDICTING GLOMERULAR FILTRATION RATE . ESTIMATED GFR I S NOT APPLICABLE FOR DIALYSIS PATIENTS. DAVID (test code = DAVID) Mathematics Professor ID - CDP Lab Interpretation Abnormal (test code = 54250-6) [facility] [id number] 17:04:22 Test Item Value Reference Range Interpretation Comments SODIUM (BEAKER) 133 meq/L 136-145 L (test code = 381) POTASSIUM (BEAKER) 4.8 meq/L 3.5-5.1 Specimen slightly (test code = 379) hemolyzed CHLORIDE (BEAKER) 99 meq/L 98-107 (test code = 382) CO2 (BEAKER) (test 19 meq/L 22-29 L code = 355) BLOOD UREA NITROGEN 71 mg/dL 7-21 H (BEAKER) (test code = 354) CREATININE (BEAKER) 5.99 mg/dL 0.57-1.25 H Specimen slightly (test code = 358) hemolyzed GLUCOSE RANDOM 250 mg/dL 70-105 H (BEAKER) (test code = 652) CALCIUM (BEAKER) 8.1 mg/dL 8.4-10.2 L (test code = 697) EGFR (BEAKER) (test 10 mL/min/1.73 ESTIMA REYNA GFR IS code = 1092) sq m NOT ACCURATE CREATININE CLEARANCE IN PREDICTING GLOMERULAR FILTRATION RATE . ESTIMATED GFR I S NOT APPLICABLE FOR DIALYSIS PATIEN TS. Mathematics Professor ID - CDPPT, [id number] 16:15:38 Test Item Value Reference Range Interpretation Comments PTH (test code = 2731-8) 1275.7 pg/mL 8.5-72.5 H DAVID (test code = DAVID) Mathematics Professor ID - BS Lab Interpretation (test Abnormal code = 61747-6) [facility], [id number] 16:15:38 Test Item Value Reference Range Interpretation Comments PARATHYROID HORMONE INTACT 1275.7 pg/mL 8.5-72.5 H (BEAKER) (test code = 577) Mathematics Professor ID - [id number] 16:06:56 Test Item Value Reference Range Interpretation Comments Magnesium (test code = 2.0 mg/dL 1.6-2.6 Speci men 48310-7) slightly hemolyzed DAVID (test code = DAVID) Mathematics Professor ID - BS Lab Interpretation Normal (test code = 32291-5) [facility] 16:06:56 Test Item Value Reference Range Interpretation Comments Phosphorus (test code 6.6 mg/dL 2.3-4.7 H Specim en = 2777-1) slightly hemolyzed DAVID (test code = DAVID) Mathematics Professor ID - BS Lab Interpretation Abnormal (test code = 98623-5) [facility] 16:06:56 Test Item Value Reference Range Interpretation Comments MAGNESIUM (BEAKER) 2.0 mg/dL 1.6-2.6 Specimen slightly (test code = 627) hemolyzed Mathematics Professor ID - [id number] 16:06:56 Test Item Value Reference Range Interpretation Comments PHOSPHORUS (BEAKER) 6.6 mg/dL 2.3-4.7 H Specimen slightly (test code = 604) hemolyzed Mathematics Professor ID - BSCBC with platelet count + automated [id number] 16:00:51 Test Item Value Reference Range Interpretation Comments WBC (test code = 6690-2) 17.8 See_Comment H [A utomated message] The system [employer] generated this result transmitted ref erence range: 3.5 - 10 .5 K/L. The refe rence range was not u sed to interpret this result as normal/abnor mal. RBC (test code = 789-8) 3.20 See_Comment L [Au tomated message] The system [employer] generated this result transmitted ref erence range: 4.63 - 6 .08 M/L. The refe rence range was not u sed to interpret this result as normal/abnor mal. MCHC (test code = 786-4) 33.9 See_Comment L [A utomated message] The system [employer] generated this result transmitted ref erence range: 32.3 - 3 6.5 GM/DL. The refe rence range was not u sed to interpret this result as normal/abnor mal. Hematocrit (test code = 29.2 % 40.1-51.0 L 4544-3) MCV (test code = 787-2) 91.3 fL 79.0-92.2 MCH (test code = 785-6) 30.9 pg 25.7-32.2 RDW (test code = 788-0) 15.2 % 11.6-14.4 H Platelets (test code = 112 See_Comment L [Aut omated message] 037-3) The system [employer] generated this result transmitted ref erence range: 150 - 45 0 K/CU MM. The referen ce range was not u sed to interpret this result as normal/abnor mal. MPV (test code = 11.8 fL 9.4-12.4 50313-7) nRBC (test code = 413) 0 See_Comment [Aut omated message] The system [employer] generated this result transmitted ref erence range: 0 - 0 /1 00 WBC. The refere nce range was not u sed to interpret this result as normal/abnor mal. % Neutros (test code = 94 % 429) % Lymphs (test code = 2 % 430) % Monos (test code = 4 % 431) % Eos (test code = 432) 0 % % Baso (test code = 437) 0 % # Neutros (test code = 16.71 See_Comment H [Aut omated message] 670) The system [employer] generated this result transmitted ref erence range: 1.78 - 5 .38 K/L. The refe rence range was not u sed to interpret this result as normal/abnor mal. # Lymphs (test code = 0.34 See_Comment L [Auto mated message] 414) The system [employer] generated this result transmitted ref erence range: 1.32 - 3 .57 K/L. The refe rence range was not u sed to interpret this result as normal/abnor mal. # Monos (test code = 0.63 See_Comment [Autom ated message] 415) The system [employer] generated this result transmitted ref erence range: 0.30 - 0 .82 K/L. The refe rence range was not u sed to interpret this result as normal/abnor mal. # Eos (test code = 416) 0.02 See_Comment L [Au tomated message] The system [employer] generated this result transmitted ref erence range: 0.04 - 0 .54 K/L. The refe rence range was not u sed to interpret this result as normal/abnor mal. # Baso (test code = 417) 0.03 See_Comment [A utomated message] The system [employer] generated this result transmitted ref erence range: 0.01 - 0 .08 K/L. The refe rence range was not u sed to interpret this result as normal/abnor mal. Immature 0 % 0-1 Granulocytes-Relative (test code = 2801) Lab Interpretation (test Abnormal code = 75802-6) [facility] W/PLT COUNT & AUTO [id number] 16:00:51 Test Item Value Reference Range Interpretation Comments WHITE BLOOD CELL COUNT (BEAKER) 17.8 K/ L 3.5-10.5 H (test code = 775) RED BLOOD CELL COUNT (BEAKER) 3.20 M/ L 4.63-6.08 L (test code = 761) HEMOGLOBIN (BEAKER) (test code = 9.9 GM/DL 13.7-17.5 L 410) HEMATOCRIT (BEAKER) (test code = 29.2 % 40.1-51.0 L 411) MEAN CORPUSCULAR VOLUME (BEAKER) 91.3 fL 79.0-92.2 (test code = 753) MEAN CORPUSCULAR HEMOGLOBIN 30.9 pg 25.7-32.2 (BEAKER) (test code = 751) MEAN CORPUSCULAR HEMOGLOBIN CONC 33.9 GM/DL 32.3-36.5 (BEAKER) (test code = 752) RED CELL DISTRIBUTION WIDTH 15.2 % 11.6-14.4 H (BEAKER) (test code = 412) PLATELET COUNT (BEAKER) (test 112 K/CU MM 150-450 L code = 756) MEAN PLATELET VOLUME (BEAKER) 11.8 fL 9.4-12.4 (test code = 754) NUCLEATED RED BLOOD CELLS 0 /100 WBC 0-0 (BEAKER) (test code = 413) NEUTROPHILS RELATIVE PERCENT 94 % (BEAKER) (test code = 429) LYMPHOCYTES RELATIVE PERCENT 2 % (BEAKER) (test code = 430) MONOCYTES RELATIVE PERCENT 4 % (BEAKER) (test code = 431) EOSINOPHILS RELATIVE PERCENT 0 % (BEAKER) (test code = 432) BASOPHILS RELATIVE PERCENT 0 % (BEAKER) (test code = 437) NEUTROPHILS ABSOLUTE COUNT 16.71 K/ L 1.78-5.38 H (BEAKER) (test code = 670) LYMPHOCYTES ABSOLUTE COUNT 0.34 K/ L 1.32-3.57 L (BEAKER) (test code = 414) MONOCYTES ABSOLUTE COUNT (BEAKER) 0.63 K/ L 0.30-0.82 (test code = 415) EOSINOPHILS ABSOLUTE COUNT 0.02 K/ L 0.04-0.54 L (BEAKER) (test code = 416) BASOPHILS ABSOLUTE COUNT (BEAKER) 0.03 K/ L 0.01-0.08 (test code = 417) IMMATURE GRANULOCYTES-RELATIVE 0 % 0-1 PERCENT (BEAKER) (test code = 2801) POCT-GLUCOSE [id number] 12:37:45 Test Item Value Reference Range Interpretation Comments POC-GLUCOSE METER 237 mg/dL 70-110 H : TESTED A T [facility] 6720 (BEAKER) (test code = [facility], [facility]8) [address]: Mathematics Professor/Techni nora ID = [id number] for Ab uanga, Aiyat POCT-GLUCOSE [id number] 08:48:26 Test Item Value Reference Range Interpretation Comments POC-GLUCOSE METER 196 mg/dL 70-110 H : TEST[facility] A T [facility] 6720 [facility] (test code = [facility]8) 17855: Mathematics Professor/Techni nora ID = [id number] for Ab uanga, Aiyat POCT-GLUCOSE [id number] 21:53:18 Test Item Value Reference Range Interpretation Comments POC-GLUCOSE METER 213 mg/dL 70-110 H : TESTED A T [facility] 6720 (BEAKER) (test code = [facility], [facility]8) 72525: Mathematics Professor/Techni nora ID = [id number] for Ng lynette (contract), Lovelace ra POCT-GLUCOSE [id number] 18:22:52 Test Item Value Reference Range Interpretation Comments POC-GLUCOSE METER 162 mg/dL 70-110 H : TESTED A T [facility] 6720 (BEAKER) (test code = [facility], 1538) 19001: Mathematics Professor/Techni nora ID = [id number] for Ab uanga, Aiyat POCT-GLUCOSE [id number] 13:11:18 Test Item Value Reference Range Interpretation Comments POC-GLUCOSE METER 116 mg/dL 70-110 H : TESTED A T [facility] 6720 (BEAKER) (test code = [facility], [facility]8) 13282: Mathematics Professor/Techni nora ID = [id number] for Ab uanga, Aiyat POCT-GLUCOSE [id number] 12:43:05 Test Item Value Reference Range Interpretation Comments POC-GLUCOSE METER 62 mg/dL 70-110 L : TESTED A T [facility] 6720 (BEAKER) (test code = [facility] [place], 1538) 573[address]: Mathematics Professor/Techni nora ID = [id number] for Abua gerry, Aiyat POCT-GLUCOSE [id number] 09:07:55 Test Item Value Reference Range Interpretation Comments POC-GLUCOSE METER 111 mg/dL 70-110 H : TESTED A T [facility] 6720 (BEAKER) (test code = [facility], 1538) 70677: Mathematics Professor/Techni nora ID = [id number] for Fo ronald (contract), Dianna rebecca Manual [id number] 06:54:58 Test Item Value Reference Range Interpretation Comments % Neutros (test code 83 % = 2816) % Lymphs (test code = 5 % 2817) % Monos (test code = 7 % 2818) % Bands (test code = 5 % 0-10 2826) # Neutros (test code 15.69 K/ul 1.78-5.38 H = 2830) # Lymphs (test code = 0.95 K/ul 1.32-3.57 L 2831) # Monos (test code = 1.32 K/uL 0.30-0.82 H 2832) # Bands (test code = 0.95 K/uL 0.00-0.80 H 2840) Total Counted (test 100 code = 1351) nRBC (manual) (test 1 See_Comment H [Automa reyna code = 1353) message] The system which generated this result transmitted reference range : 0 - 0 /100 WBC. The reference range was not used to interpr et this result as normal/abnormal . WBC Morphology (test Normal code = 487) Giant Platelet (test Present code = 313) Anisocytosis (test 2+ moderate code = 961) Macrocytes (test code 1+ few = 964) Poikilocytes (test 3+ many code = 966) Elliptocytes (test 1+ few code = 962) [place] Cells (test code 1+ few = 474) Artifact (test code = Present 3432) Platelet Conc (test Decreased code = 3438) DAVID (test code = DAVID) Mathematics Professor ID - [id number] ID - mary alice Bourgeois comments: Slide comments: Lab Interpretation Abnormal (test code = 31283-4) [facility](CELLAVISION MANUAL DIFF)2021-10-25 06:54:58 Test Item Value Reference Range Interpretation Comments NEUTROPHILS - REL 83 % (CELLAVISION)(BEAKER) (test code = 2816) LYMPHOCYTES - REL 5 % (CELLAVISION)(BEAKER) (test code = 2817) MONOCYTES - REL 7 % (CELLAVISION)(BEAKER) (test code = 2818) BANDS - REL (CELLAVISION)(BEAKER) 5 % 0-10 (test code = 2826) NEUTROPHILS - ABS 15.69 K/ul 1.78-5.38 H (CELLAVISION)(BEAKER) (test code = 2830) LYMPHOCYTES - ABS 0.95 K/ul 1.32-3.57 L (CELLAVISION)(BEAKER) (test code = 2831) MONOCYTES - ABS 1.32 K/uL 0.30-0.82 H (CELLAVISION)(BEAKER) (test code = 2832) BANDS - ABS (CELLAVISION)(BEAKER) 0.95 K/uL 0.00-0.80 H (test code = 2840) TOTAL COUNTED (BEAKER) (test code 100 = 1351) MANUAL NRBC PER 100 CELLS 1 /100 WBC 0-0 H (BEAKER) (test code = 1353) WBC MORPHOLOGY (BEAKER) (test Normal code = 487) GIANT PLATELETS (BEAKER) (test Present code = 313) ANISOCYTOSIS (BEAKER) (test code 2+ moderate = 961) MACROCYTES (BEAKER) (test code = 1+ few 964) POIKILOCYTES (BEAKER) (test code 3+ many = 966) ELLIPTOCYTES (BEAKER) (test code 1+ few = 962) XAVIER CELLS (BEAKER) (test code = 1+ few 474) ARTIFACT (CELLAVISION)(BEAKER) Present (test code = 3432) PLATELET CONCENTRATION Decreased (CELLAVISION)(BEAKER) (test code = 3438) Mathematics Professor ID - [id number] ID - mary alice Bourgeois comments: Slide comments:CBC W/PLT COUNT & AUTO [id number] 06:54:57 Test Item Value Reference Range Interpretation Comments WHITE BLOOD CELL COUNT (BEAKER) 18.9 K/ L 3.5-10.5 H (test code = 775) RED BLOOD CELL COUNT (BEAKER) 3.19 M/ L 4.63-6.08 L (test code = 761) HEMOGLOBIN (BEAKER) (test code = 9.9 GM/DL 13.7-17.5 L 410) HEMATOCRIT (BEAKER) (test code = 30.4 % 40.1-51.0 L 411) MEAN CORPUSCULAR VOLUME (BEAKER) 95.3 fL 79.0-92.2 H (test code = 753) MEAN CORPUSCULAR HEMOGLOBIN 31.0 pg 25.7-32.2 (BEAKER) (test code = 751) MEAN CORPUSCULAR HEMOGLOBIN CONC 32.6 GM/DL 32.3-36.5 (BEAKER) (test code = 752) RED CELL DISTRIBUTION WIDTH 15.3 % 11.6-14.4 H (BEAKER) (test code = 412) PLATELET COUNT (BEAKER) (test code 94 K/CU MM 150-450 L = 756) MEAN PLATELET VOLUME (BEAKER) 11.7 fL 9.4-12.4 (test code = 754) NUCLEATED RED BLOOD CELLS (BEAKER) 0 /100 WBC 0-0 (test code = 413) BASIC METABOLIC [id number] 06:20:34 Test Item Value Reference Range Interpretation Comments SODIUM (BEAKER) 132 meq/L 136-145 L (test code = 381) POTASSIUM (BEAKER) 5.1 meq/L 3.5-5.1 (test code = 379) CHLORIDE (BEAKER) 101 meq/L 98-107 (test code = 382) CO2 (BEAKER) (test 16 meq/L 22-29 L code = 355) BLOOD UREA NITROGEN 75 mg/dL 7-21 H (BEAKER) (test code = 354) CREATININE (BEAKER) 7.37 mg/dL 0.57-1.25 H (test code = 358) GLUCOSE RANDOM 166 mg/dL 70-105 H (BEAKER) (test code = 652) CALCIUM (BEAKER) 8.1 mg/dL 8.4-10.2 L (test code = 697) EGFR (BEAKER) (test 8 mL/min/1.73 ESTIMAT ED GFR IS code = 1092) sq m NOT ACCURATE CREATININE CLEARANCE IN PREDICTING GLOMERULAR FILTRATION RATE . ESTIMATED GFR I S NOT APPLICABLE FOR DIALYSIS PATIEN TS. Mathematics Professor ID - MANDEEP [id number] 06:19:42 Test Item Value Reference Range Interpretation Comments PHOSPHORUS (BEAKER) (test code = 6.1 mg/dL 2.3-4.7 H 604) Mathematics Professor ID - MANDEEP [id number] 06:19:41 Test Item Value Reference Range Interpretation Comments MAGNESIUM (BEAKER) (test code = 1.9 mg/dL 1.6-2.6 627) Mathematics Professor ID - MANDEEP GProthrombin time/[id number] 06:02:32 Test Item Value Reference Interpretation Comments Range Protime (test code = 21.2 See_Comment H [Autom ated 0372-2) message] The system which generated this result transmitted reference range : 11.9 - 14.2 seconds. The reference range was not used to interpret this result as normal/abnormal . INR (test code = 1.87 See_Comment [Automated 9621-6) message] The system which generated this result transmitted reference range : <=5.90. The reference range was not used to interpret this result as normal/abnormal . DAVID (test code = RECOMMENDED DAVID) COUMADIN/WARFARIN INR THERAPY RANGESSTANDARD DOSE: 2.0 - 3.0 Includes: PROPHYLAXIS for venous thrombosis, systemic embolization; TREATMENT for venous thrombosis and/or pulmonary embolus.HIGH RISK: Target INR is 2.5-3.5 for patients with mechanical heart valves. Lab Interpretation Abnormal (test code = 28649-6) [facility][id number] 06:02:32 Test Item Value Reference Range Interpretation Comments PROTIME (BEAKER) 21.2 seconds 11.9-14.2 H (test code = 759) INR (BEAKER) (test 1.87 See_Comment [Automat ed message] code = 370) The system whic h generated this result transmitted ref erence range: <=5.90. The reference range was not used to int erpret this result as normal/abnormal . RECOMMENDED COUMADIN/WARFARIN INR THERAPY RANGESSTANDARD DOSE: 2.0 - 3.0 Includes: PROPHYLAXIS forvenous thrombosis, systemic embolization; TREATMENT for venous thrombosis and/or pulmonary embolus.HIGH RISK: Target INR is 2.5-3.5 for patients with mechanical heart valves.Ketone, [id number] 05:21:25 Test Item Value Reference Range Interpretation Comments Ketones, Blood (test code = 1103) 0.0 mmol/L <0.4 Lab Interpretation (test code = Normal 82553-2) [facility] [id number] 05:21:25 Test Item Value Reference Range Interpretation Comments KETONES, BLOOD (BEAKER) (test code 0.0 mmol/L <0.4 = 1103) POCT-GLUCOSE [id number] 02:41:20 Test Item Value Reference Range Interpretation Comments POC-GLUCOSE METER 221 mg/dL 70-110 H : TESTED A T [facility] 6720 (BEAKER) (test code [facility], = 1538) [address]: Mathematics Professor/Techni nora ID = [id number] for Taylor Greer (cont ract) [id number] 22:09:15 Test Item Value Reference Range Interpretation Comments Procalcitonin (test code = 139.02 ng/mL <0.05 77069-0) DAVID (test code = DAVID) SEPSIS RISK (ng/mL)Low: 0.05-0.50Intermedi ate: 0.51-2.00High: >=2.01 Lab Interpretation (test Abnormal code = 14055-5) [facility] 22:09:15 Test Item Value Reference Range Interpretation Comments PROCALCITONIN (BEAKER) (test 139.02 ng/mL <0.05 code = 3036) SEPSIS RISK (ng/mL)Low: 0.05-0.50Intermediate: 0.51-2.00High: >=2.01TSH/Free T4 If [id number] 22:00:32 Test Item Value Reference Range Interpretation Comments TSH (test code = 2.914 See_Comment [Automated 76464-5) message] The system which generated this result transmit reyna reference range : 0.350 - 4.940 uIU/mL. The reference range was not used to interpret this result as normal/abnormal . DAVID (test code = DAVID) Mathematics Professor ID - DB Lab Interpretation Normal (test code = 76297-9) [facility] T4 IF [id number] 22:00:32 Test Item Value Reference Range Interpretation Comments THYROID STIMULATING HORMONE 2.914 uIU/mL 0.350-4.940 (BEAKER) (test code = 772) Mathematics Professor ID - DBB-type Natriuretic Factor (BNP)2021-10-24 21:46:05 Test Item Value Reference Range Interpretation Comments BNP (test code = 41217-9) 1176 pg/mL 0-100 H DAVID (test code = DAVID) Mathematics Professor ID - DB Lab Interpretation (test Abnormal code = 16970-9) [facility] NATRIURET[facility] (BNP)2021-10-24 21:46:05 Test Item Value Reference Range Interpretation Comments B-TYPE NATRIURETIC PEPTIDE 1176 pg/mL 0-100 H (BEAKER) (test code = 700) Mathematics Professor ID - DBComprehensive metabolic [id number] 21:43:08 Test Item Value Reference Range Interpretation Comments Protein, Total (test 6.0 See_Comment [Autom ated code = 2885-2) message] The system which generated this result transmit reyna reference range : 6.0 - 8.3 gm/dL . The reference range was not u sed to interpret th is result as normal/abnormal . Albumin (test code = 3.4 g/dL 3.5-5.0 L 18201-2) Alkaline Phosphatase 75 U/L 40-150 (test code = 6768-6) Total Bilirubin (test 0.7 mg/dL 0.2-1.2 code = 1975-2) Sodium (test code = 130 meq/L 136-145 L 2951-2) Potassium (test code 4.8 meq/L 3.5-5.1 = 2823-3) Chloride (test code = 98 meq/L 98-107 2075-0) CO2 (test code = 15 meq/L 22-29 L 2027-) BUN (test code = 67 mg/dL 7-21 H 3094-0) Creatinine (test code 7.41 mg/dL 0.57-1.25 H = 2160-0) Glucose (test code = 424 mg/dL 70-105 HH 2345-7) Calcium (test code = 8.1 mg/dL 8.4-10.2 L 08749-2) AST (test code = 16 U/L 5-34 1920-8) ALT (test code = 17 U/L 6-55 1742-6) EGFR (test code = 8 mL/min/1.73 [place] [address]-8) NOT ACCURATE CREATININE CLEARANCE IN PREDICTING GLOMERULAR FILTRATION RATE . ESTIMATED GFR I S NOT APPLICABLE FOR DIALYSIS PATIEN TS. HERNANDEZ (test code = DAVID) Mathematics Professor ID - DB Lab Interpretation Abnormal (test code = 37149-2) [facility] [id number] 21:43:08 Test Item Value Reference Range Interpretation Comments TOTAL PROTEIN 6.0 gm/dL 6.0-8.3 (BEAKER) (test code = 770) ALBUMIN (BEAKER) 3.4 g/dL 3.5-5.0 L (test code = 1145) ALKALINE PHOSPHATASE 75 U/L 40-150 (BEAKER) (test code = 346) BILIRUBIN TOTAL 0.7 mg/dL 0.2-1.2 (BEAKER) (test code = 377) SODIUM (BEAKER) (test 130 meq/L 136-145 L code = 381) POTASSIUM (BEAKER) 4.8 meq/L 3.5-5.1 (test code = 379) CHLORIDE (BEAKER) 98 meq/L 98-107 (test code = 382) CO2 (BEAKER) (test 15 meq/L 22-29 L code = 355) BLOOD UREA NITROGEN 67 mg/dL 7-21 H (BEAKER) (test code = 354) CREATININE (BEAKER) 7.41 mg/dL 0.57-1.25 H (test code = 358) GLUCOSE RANDOM 424 mg/dL 70-105 HH (BEAKER) (test code = 652) CALCIUM (BEAKER) 8.1 mg/dL 8.4-10.2 L (test code = 697) AST (SGOT) (BEAKER) 16 U/L 5-34 (test code = 353) ALT (SGPT) (BEAKER) 17 U/L 6-55 (test code = 347) EGFR (BEAKER) (test 8 mL/min/1.73 ESTIMAT ED GFR IS code = 1092) sq m NOT ACCURATE CREATININE CLEARANCE IN PREDICTING GLOMERULAR FILTRATION RATE . ESTIMATED GFR I S NOT APPLICABLE FOR DIALYSIS PATIEN TS. Mathematics Professor ID - DB(CELLAVISION MANUAL DIFF)2021-10-24 21:40:39 Test Item Value Reference Range Interpretation Comments NEUTROPHILS - REL 69 % (CELLAVISION)(BEAKER) (test code = 2816) LYMPHOCYTES - REL 3 % (CELLAVISION)(BEAKER) (test code = 2817) MONOCYTES - REL 4 % (CELLAVISION)(BEAKER) (test code = 2818) METAMYELOCYTES - REL 1 % 0-0 H (CELLAVISION)(BEAKER) (test code = 2821) BANDS - REL (CELLAVISION)(BEAKER) 23 % 0-10 H (test code = 2826) NEUTROPHILS - ABS 13.32 K/ul 1.78-5.38 H (CELLAVISION)(BEAKER) (test code = 2830) LYMPHOCYTES - ABS 0.58 K/ul 1.32-3.57 L (CELLAVISION)(BEAKER) (test code = 2831) MONOCYTES - ABS 0.77 K/uL 0.30-0.82 (CELLAVISION)(BEAKER) (test code = 2832) METAMYELOCYTES - ABS 0.19 K/uL 0.00-0.00 H (CELLAVISION)(BEAKER) (test code = 2836) BANDS - ABS (CELLAVISION)(BEAKER) 4.44 K/uL 0.00-0.80 H (test code = 2840) TOTAL COUNTED (BEAKER) (test code 100 = 1351) PLT MORPHOLOGY (BEAKER) (test code Normal = 486) SMUDGE CELLS (BEAKER) (test code = Present 1371) ANISOCYTOSIS (BEAKER) (test code = 1+ few 961) MACROCYTES (BEAKER) (test code = 1+ few 964) POIKILOCYTES (BEAKER) (test code = 3+ many 966) SPHEROCYTES (BEAKER) (test code = 1+ few 768) XAVIER CELLS (BEAKER) (test code = 1+ few 474) PLATELET CONCENTRATION Decreased (CELLAVISION)(BEAKER) (test code = 3438) Mathematics Professor ID - [id number] ID - mario Casiano comments: Slide comments: [id number] 21:40:05 Test Item Value Reference Range Interpretation Comments MAGNESIUM (BEAKER) (test code = 1.9 mg/dL 1.6-2.6 627) Mathematics Professor ID - [id number] 21:40:05 Test Item Value Reference Range Interpretation Comments PHOSPHORUS (BEAKER) (test code = 6.2 mg/dL 2.3-4.7 H 604) Mathematics Professor ID - DBPROTHROMBIN TIME/[id number] 21:34:02 Test Item Value Reference Range Interpretation Comments PROTIME (BEAKER) 22.2 seconds 11.9-14.2 H (test code = 759) INR (BEAKER) (test 1.97 See_Comment [Automat ed message] code = 370) The system [employer] generated this result transmitted ref erence range: <=5.90. The reference range was not used to int erpret this result as normal/abnormal . RECOMMENDED COUMADIN/WARFARIN INR THERAPY RANGESSTANDARD DOSE: 2.0 - 3.0 Includes: PROPHYLAXIS forvenous thrombosis, systemic embolization; TREATMENT for venous thrombosis and/or pulmonary embolus.HIGH RISK: Target INR is 2.5-3.5 for patients with mechanical heart valves.Lactic acid, [id number] 21:32:22 Test Item Value Reference Range Interpretation Comments Lactate, Venous (test 2.40 mmol/L 0.50-2.20 H Specim en code = 2872) slightly hemolyzed DAVID (test code = DAVID) Mathematics Professor ID - DB Lab Interpretation Abnormal (test code = 08630-3) [facility] HospitalLACT[facility] ACID, [id number] 21:32:22 Test Item Value Reference Range Interpretation Comments LACTATE BLOOD VENOUS 2.40 mmol/L 0.50-2.20 H Specime n slightly (2) (BEAKER) (test hemolyzed code = 4602) Mathematics Professor ID - DBCBC W/PLT COUNT & AUTO [id number] 21:19:53 Test Item Value Reference Range Interpretation Comments WHITE BLOOD CELL COUNT (BEAKER) 19.3 K/ L 3.5-10.5 H (test code = 775) RED BLOOD CELL COUNT (BEAKER) 3.15 M/ L 4.63-6.08 L (test code = 761) HEMOGLOBIN (BEAKER) (test code = 9.8 GM/DL 13.7-17.5 L 410) HEMATOCRIT (BEAKER) (test code = 30.1 % 40.1-51.0 L 411) MEAN CORPUSCULAR VOLUME (BEAKER) 95.6 fL 79.0-92.2 H (test code = 753) MEAN CORPUSCULAR HEMOGLOBIN 31.1 pg 25.7-32.2 (BEAKER) (test code = 751) MEAN CORPUSCULAR HEMOGLOBIN CONC 32.6 GM/DL 32.3-36.5 (BEAKER) (test code = 752) RED CELL DISTRIBUTION WIDTH 15.4 % 11.6-14.4 H (BEAKER) (test code = 412) PLATELET COUNT (BEAKER) (test 104 K/CU MM 150-450 L code = 756) MEAN PLATELET VOLUME (BEAKER) 11.8 fL 9.4-12.4 (test code = 754) NUCLEATED RED BLOOD CELLS 0 /100 WBC 0-0 (BEAKER) (test code = 413) POCT-GLUCOSE [id number] 20:44:50 Test Item Value Reference Range Interpretation Comments POC-GLUCOSE METER 391 mg/dL 70-110 H : TESTED A T [facility] 6720 (BEAKER) (test code = [facility], 1538) [address]: Mathematics Professor/Techni nora ID = [id number] for Bridgett puente (contract)Johnathan ae POCT-GLUCOSE [id number] 18:39:09 Test Item Value Reference Range Interpretation Comments POC-GLUCOSE METER 368 mg/dL 70-110 H : TESTED A T [facility] 6720 (BEAKER) (test code = [facility], 1538) 11982: Mathematics Professor/Techni nora ID = [id number] for Valorie Dickerson POCT GLUCOSE (AUTOMATED)2019-06-06 16:29:00 Test Item Value Reference Range Interpretation Comments POCT GLU (test code = 4689665359) 346 mg/dL 70-110 H Lab Interpretation (test code = Abnormal 61108-5) [facility]2019-06-06 12:41:00 Test Item Value Reference Range Interpretation Comments POCT GLU (test code = 5221087822) 239 mg/dL 70-110 H Lab Interpretation (test code = Abnormal 15172-6) [facility]. METABOLIC PANEL (63760)2019-06-06 12:05:00 Test Item Value Reference Range Interpretation Comments NA (test code = 140 mmol/L 135-145 1439292178) K (test code = 4.0 mmol/L 3.5-5 2357287157) CL (test code = 102 mmol/L 98-108 0024746642) CO2 TOTAL (test code = 24 mmol/L 23-31 1330742988) AGAP (test code = 2-16 8872527478) BUN (test code = 41 mg/dL 7-23 H 3845676926) GLUCOSE (test code = 313 mg/dL 70-110 H 6320997679) CREATININE (test code = 6.78 mg/dL 0.6-1.25 H 8546121275) TOTAL BILI (test code = 0.2 mg/dL 0.1-1.4 4991694468) CALCIUM (test code = 8.0 mg/dL 8.6-10.6 L 3366893347) T PROTEIN (test code = 6.8 g/dL 6.3-8.2 6250462663) ALBUMIN (test code = 4.1 g/dL 3.5-5 8856865664) ALK PHOS (test code = 130 U/L 34-122 H 3966232972) ALT(SGPT) (test code = 48 U/L 9-51 5904183799) AST(SGOT) (test code = 28 U/L 13-40 8649731235) eGFR Calculation mL/min/1.73m2 (Non-) (test code = 1817433805) eGFR Calculation mL/min/1.73m2 () (test code = 3487120378) DAVID (test code = DAVID) Association of Glomerular Filtration Rate (GFR) and Staging of Kidney Disease*+ + + +| GFR (mL/min/1.73 m2)?| With Kidney Damage?|?Without Kidney Damage+ --------+ --------+ +|?>90?|?S tage one?|? Normal?+ ---------+ ---------+ +|?60-89? |?Stage two?|? Decreased GFR? + --+ --+ ------+|?30-59?|?Stage three?|? Stage three? + --+ --+ ------+|?15-29?|?Stage four? |? Stage four?+ -------+ -------+ +|?<15 (or dialysis)?|?Stage five? |? Stage five?+ -------+ -------+ +*Each stage assumes the associated GFR level has been in effect for at least three months.?Stages 1 to 5, with or without kidney disease, indicate chronic kidney disease.Notes: Determination of stages one and two (with eGFR >59mL/min/1.73 m2) requires estimation of kidney damage for at least three months as defined by structural or functional abnormalities of the kidney, manifested by either:Pathological abnormalities or Markers of kidney damage (including abnormalities in the composition of the blood or urine or abnormalities in imaging tests). Lab Interpretation Abnormal (test code = 28515-4) [facility]MAG[facility]2019-09-19 12:03:00 Test Item Value Reference Range Interpretation Comments MAGNESIUM (test code = 4118737831) 2.1 mg/dL 1.7-2.4 Lab Interpretation (test code = Normal 71902-5) [facility]CB WITH [id number] 12:00:00 Test Item Value Reference Range Interpretation Comments WBC (test code = See_Comment [Automated 2364-2) message] The sy stem which generated this result transmitted reference range : 4.20 - 10.70 10*3/?L. The reference range was not used to interpret this result as normal/abnormal . RBC (test code = See_Comment L [Automated 479-8) message] The sy stem which generated this result transmitted reference range : 4.26 - 5.52 10*6/?L. The reference range was not used to interpret this result as normal/abnormal . HGB (test code = 6.9 g/dL 12.2-16.4 L 718-7) HCT (test code = 20.3 % 38.4-49.3 L 4544-3) MCV (test code = 83.5 fL 81.7-95.6 787-2) MCH (test code = 28.4 pg 26.1-32.7 785-6) MCHC (test code = 34.0 g/dL 31.2-35 786-4) RDW-SD (test code = 44.4 fL 38.5-51.6 32523-1) RDW-CV (test code = 14.6 % 12.1-15.4 788-0) PLT (test code = See_Comment L [Automated 777-3) message] The sy stem which generated this result transmitted reference range : 150 - 328 10*3/ ?L. The reference r radha was not used to interpret this result as normal/abnormal . MPV (test code = 12.0 fL 9.8-13 41424-7) NRBC/100 WBC (test See_Comment [Automat ed code = 6346186782) message] The system which generated this result transmitted reference range : 0.0 - 10.0 /100 WBCs. The refer ence range was not u sed to interpret th is result as normal/abnormal . NRBC x10^3 (test code <0.01 See_Comment [Auto mated = 2504270940) message] The s ystem which generated this result transmitted reference range : 10*3/?L. The reference range was not used to interpret this result as normal/abnormal . GRAN MAT (NEUT) % 66.8 % (test code = 770-8) IMM GRAN % (test code 1.00 % = 9060489548) LYMPH % (test code = 18.1 % 736-9) MONO % (test code = 9.1 % 5905-5) EOS % (test code = 4.4 % 713-8) BASO % (test code = 0.6 % 706-2) GRAN MAT x10^3(ANC) 3.21 10*3/uL 1.99-6.95 (test code = 4640983277) IMM GRAN x10^3 (test 0.05 10*3/uL 0-0.06 code = 0086566185) LYMPH x10^3 (test code 0.87 10*3/uL 1.09-3.23 L = 731-0) MONO x10^3 (test code 0.44 10*3/uL 0.36-1.02 = 742-7) EOS x10^3 (test code = 0.21 10*3/uL 0.06-0.53 711-2) BASO x10^3 (test code 0.03 10*3/uL 0.01-0.09 = 704-7) Lab Interpretation Abnormal (test code = 70217-1) [facility] GLUCOSE (AUTOMATED)2019-06-06 05:47:00 Test Item Value Reference Range Interpretation Comments POCT GLU (test code = 9286245835) 339 mg/dL 70-110 H Lab Interpretation (test code = Abnormal 11197-8) [facility] GLUCOSE (AUTOMATED)2019-06-06 01:51:00 Test Item Value Reference Range Interpretation Comments POCT GLU (test code = 4583044084) 379 mg/dL 70-110 H Lab Interpretation (test code = Abnormal 89352-0) [facility] HospitalGLYCOSYLATED HEMOGLOBIN (A1C)2019-06-05 23:34:00 Test Item Value Reference Interpretation Comments Range HGB A1C (test code = >14.0 See_Comment H [Autom ated 4548-4) message] The system which generated this result transmitted reference range : 4.0 - 6.0 % NGSP. The reference range was not used to interpret this result as normal/abnormal . DAVID (test code = %A1C (NGSP) DAVID) Interpretation (ADA)4.8-5.6? Normal or (Non-Diabetic Range)5.7-6.4? Increased Risk (Pre-Diabetic)>6.5?D iabetes Indicated Lab Interpretation Abnormal (test code = 32094-1) [facility] GLUCOSE (AUTOMATED)2019-06-05 17:48:00 Test Item Value Reference Range Interpretation Comments POCT GLU (test code = 1248536716) 220 mg/dL 70-110 H Lab Interpretation (test code = Abnormal 27538-2) [facility] HospitalType and Screen - ONCE [id number] 16:28:25 Test Item Value Reference Range Interpretation Comments ABO & RH (test code O Positive Performe d at [facility] = 20) Laboratory Serv [facility] [place] [phone] Free: [phone] A No. [id number] IAT (test code = Negative Performed a t [facility] 1185) Laboratory Serv [facility] [place] [phone] Free: [phone] A No. [id number] [facility]BAR[facility] [place] METABOLIC PANEL (NA, K, CL, CO2, GLUCOSE, BUN, CREATININE, CA)2019-06-05 14:12:00 Test Item Value Reference Range Interpretation Comments NA (test code = 136 mmol/L 135-145 1090331774) K (test code = 6.7 mmol/L 3.5-5 HH 1245797885) CL (test code = 107 mmol/L 98-108 0204734620) CO2 TOTAL (test code = 13 mmol/L 23-31 L 9422918856) AGAP (test code = 2-16 1874178582) BUN (test code = 86 mg/dL 7-23 H 8073641312) GLUCOSE (test code = 67 mg/dL 70-110 L 5813554666) CREATININE (test code = 11.83 mg/dL 0.6-1.25 H 9599105130) CALCIUM (test code = 7.5 mg/dL 8.6-10.6 L 1023642529) eGFR Calculation mL/min/1.73m2 (Non-) (test code = 5924204628) eGFR Calculation mL/min/1.73m2 () (test code = 7704229980) DAVID (test code = DAVID) Association of Glomerular Filtration Rate (GFR) and Staging of Kidney Disease*+ + + +| GFR (mL/min/1.73 m2)?| With Kidney Damage?|?Without Kidney Damage+ --------+ --------+ +|?>90?|?S tage one?|? Normal?+ ---------+ ---------+ +|?60-89? |?Stage two?|? Decreased GFR? + --+ --+ ------+|?30-59?|?Stage three?|? Stage three? + --+ --+ ------+|?15-29?|?Stage four? |? Stage four?+ -------+ -------+ +|?<15 (or dialysis)?|?Stage five?? |? Stage five?+ -------+ -------+ +*Each stage assumes the associated GFR level has been in effect for at least three months.?Stages 1 to 5, with or without kidney disease, indicate chronic kidney disease.Notes: Determination of stages one and two (with eGFR >59mL/min/1.73 m2) requires estimation of kidney damage for at least three months as defined by structural or functional abnormalities of the kidney, manifested by either:Pathological abnormalities or Markers of kidney damage (including abnormalities in the composition of the blood or urine or abnormalities in imaging tests). Lab Interpretation Abnormal (test code = 35829-6) [facility] WITH [id number] 14:02:00 Test Item Value Reference Range Interpretation Comments WBC (test code = See_Comment [Automated 6690-2) message] The sy stem which generated this result transmitted reference range : 4.20 - 10.70 10*3/?L. The reference range was not used to interpret this result as normal/abnormal . RBC (test code = See_Comment L [Automated 789-8) message] The sy stem which generated this result transmitted reference range : 4.26 - 5.52 10*6/?L. The reference range was not used to interpret this result as normal/abnormal . HGB (test code = 6.7 g/dL 12.2-16.4 L 718-7) HCT (test code = 20.7 % 38.4-49.3 L 4544-3) MCV (test code = 86.3 fL 81.7-95.6 787-2) MCH (test code = 27.9 pg 26.1-32.7 785-6) MCHC (test code = 32.4 g/dL 31.2-35 786-4) RDW-SD (test code = 45.5 fL 38.5-51.6 70642-6) RDW-CV (test code = 14.4 % 12.1-15.4 788-0) PLT (test code = See_Comment L [Automated 777-3) message] The sy stem which generated this result transmitted reference range : 150 - 328 10*3/ ?L. The reference r radha was not used to interpret this result as normal/abnormal . MPV (test code = 10.6 fL 9.8-13 33166-8) NRBC/100 WBC (test See_Comment [Automat ed code = 0343356570) message] The system which generated this result transmitted reference range : 0.0 - 10.0 /100 WBCs. The refer ence range was not u sed to interpret th is result as normal/abnormal . NRBC x10^3 (test code <0.01 See_Comment [Auto mated = 7113397734) message] The s ystem which generated this result transmitted reference range : 10*3/?L. The reference range was not used to interpret this result as normal/abnormal . GRAN MAT (NEUT) % 68.6 % (test code = 770-8) IMM GRAN % (test code 0.80 % = 6144538118) LYMPH % (test code = 18.4 % 736-9) MONO % (test code = 6.9 % 5905-5) EOS % (test code = 4.8 % 713-8) BASO % (test code = 0.5 % 706-2) GRAN MAT x10^3(ANC) 4.18 10*3/uL 1.99-6.95 (test code = 8114313392) IMM GRAN x10^3 (test 0.05 10*3/uL 0-0.06 code = 1146145533) LYMPH x10^3 (test code 1.12 10*3/uL 1.09-3.23 = 731-0) MONO x10^3 (test code 0.42 10*3/uL 0.36-1.02 = 742-7) EOS x10^3 (test code = 0.29 10*3/uL 0.06-0.53 711-2) BASO x10^3 (test code 0.03 10*3/uL 0.01-0.09 = 704-7) Lab Interpretation Abnormal (test code = 49526-7) [id number] 12:34:00 Test Item Value Reference Range Interpretation Comments NA (test code = 138 mmol/L 135-145 3831927835) K (test code = 5.7 mmol/L 3.5-5 H 8437829337) CL (test code = 108 mmol/L 98-108 1944774031) CO2 TOTAL (test code = 11 mmol/L 23-31 L 5445124545) AGAP (test code = 2-16 H 3904017894) BUN (test code = 69 mg/dL 7-23 H 6250006860) GLUCOSE (test code = 99 mg/dL 70-110 1239208899) CREATININE (test code = 12.11 mg/dL 0.6-1.25 H 8427086666) TOTAL BILI (test code = 0.3 mg/dL 0.1-1.4 8817648074) CALCIUM (test code = 7.7 mg/dL 8.6-10.6 L 5507603842) T PROTEIN (test code = 6.8 g/dL 6.3-8.2 6860959677) ALBUMIN (test code = 4.0 g/dL 3.5-5 3951505359) ALK PHOS (test code = 118 U/L 34-122 4206582703) ALT(SGPT) (test code = 65 U/L 9-51 H 2169583995) AST(SGOT) (test code = 39 U/L 13-40 1008996110) eGFR Calculation mL/min/1.73m2 (Non-) (test code = 0362469339) eGFR Calculation mL/min/1.73m2 () (test code = 5905428875) DAVID (test code = DAVID) Association of Glomerular Filtration Rate (GFR) and Staging of Kidney Disease*+ + + +| GFR (mL/min/1.73 m2)?| With Kidney Damage?|?Without Kidney Damage+ --------+ --------+ +|?>90?|?S tage one?|? Normal?+ ---------+ ---------+ +|?60-89? |?Stage two?|? Decreased GFR? + --+ --+ ------+|?30-59?|?Stage three?|? Stage three? + --+ --+ ------+|?15-29?|?Stage four? |? Stage four?+ -------+ -------+ +|?<15 (or dialysis)?|?Stage five? |? Stage five?+ -------+ -------+ +*Each stage assumes the associated GFR level has been in effect for at least three months.?Stages 1 to 5, with or without kidney disease, indicate chronic kidney disease.Notes: Determination of stages one and two (with eGFR >59mL/min/1.73 m2) requires estimation of kidney damage for at least three months as defined by structural or functional abnormalities of the kidney, manifested by either:Pathological abnormalities or Markers of kidney damage (including abnormalities in the composition of the blood or urine or abnormalities in imaging tests). Lab Interpretation Abnormal (test code = 91481-2) [facility] WITH [id number] 12:25:00 Test Item Value Reference Range Interpretation Comments WBC (test code = See_Comment [Automated 6690-2) message] The sy stem which generated this result transmitted reference range : 4.20 - 10.70 10*3/?L. The reference range was not used to interpret this result as normal/abnormal . RBC (test code = See_Comment L [Automated 789-8) message] The sy stem which generated this result transmitted reference range : 4.26 - 5.52 10*6/?L. The reference range was not used to interpret this result as normal/abnormal . HGB (test code = 7.1 g/dL 12.2-16.4 L 718-7) HCT (test code = 22.1 % 38.4-49.3 L 4544-3) MCV (test code = 87.4 fL 81.7-95.6 787-2) MCH (test code = 28.1 pg 26.1-32.7 785-6) MCHC (test code = 32.1 g/dL 31.2-35 786-4) RDW-SD (test code = 45.4 fL 38.5-51.6 81783-2) RDW-CV (test code = 14.3 % 12.1-15.4 788-0) PLT (test code = See_Comment [Automated 777-3) message] The sy stem which generated this result transmitted reference range : 150 - 328 10*3/ ?L. The reference r radha was not used to interpret this result as normal/abnormal . MPV (test code = 10.1 fL 9.8-13 67109-5) NRBC/100 WBC (test See_Comment [Automat ed code = 8491217451) message] The system which generated this result transmitted reference range : 0.0 - 10.0 /100 WBCs. The refer ence range was not u sed to interpret th is result as normal/abnormal . NRBC x10^3 (test code <0.01 See_Comment [Auto mated = 8657276525) message] The s ystem which generated this result transmitted reference range : 10*3/?L. The reference range was not used to interpret this result as normal/abnormal . GRAN MAT (NEUT) % 68.1 % (test code = 770-8) IMM GRAN % (test code 0.70 % = 6298483188) LYMPH % (test code = 17.7 % 736-9) MONO % (test code = 6.8 % 5905-5) EOS % (test code = 5.8 % 713-8) BASO % (test code = 0.9 % 706-2) GRAN MAT x10^3(ANC) 4.77 10*3/uL 1.99-6.95 (test code = 6133046933) IMM GRAN x10^3 (test 0.05 10*3/uL 0-0.06 code = 2648985844) LYMPH x10^3 (test code 1.24 10*3/uL 1.09-3.23 = 731-0) MONO x10^3 (test code 0.48 10*3/uL 0.36-1.02 = 742-7) EOS x10^3 (test code = 0.41 10*3/uL 0.06-0.53 711-2) BASO x10^3 (test code 0.06 10*3/uL 0.01-0.09 = 704-7) Lab Interpretation Abnormal (test code = 59035-4) [facility] GLUCOSE (AUTOMATED)2019-05-28 21:17:00 Test Item Value Reference Range Interpretation Comments POCT GLU (test code = 6016800553) 108 mg/dL 70-110 Lab Interpretation (test code = Normal 12571-4) [facility] GLUCOSE (AUTOMATED)2019-05-28 16:45:00 Test Item Value Reference Range Interpretation Comments POCT GLU (test code = 1647254412) 205 mg/dL 70-110 H Lab Interpretation (test code = Abnormal 61393-4) [facility] GLUCOSE (AUTOMATED)2019-05-28 14:37:00 Test Item Value Reference Range Interpretation Comments POCT GLU (test code = 2694374768) 230 mg/dL 70-110 H Lab Interpretation (test code = Abnormal 46806-3) [facility] WITH [id number] 13:34:00 Test Item Value Reference Range Interpretation Comments WBC (test code = See_Comment [Automated 6690-2) message] The sy stem which generated this result transmitted reference range : 4.20 - 10.70 10*3/?L. The reference range was not used to interpret this result as normal/abnormal . RBC (test code = See_Comment L [Automated 789-8) message] The sy stem which generated this result transmitted reference range : 4.26 - 5.52 10*6/?L. The reference range was not used to interpret this result as normal/abnormal . HGB (test code = 7.7 g/dL 12.2-16.4 L 718-7) HCT (test code = 24.0 % 38.4-49.3 L 4544-3) MCV (test code = 85.7 fL 81.7-95.6 787-2) MCH (test code = 27.5 pg 26.1-32.7 785-6) MCHC (test code = 32.1 g/dL 31.2-35 786-4) RDW-SD (test code = 42.7 fL 38.5-51.6 61000-2) RDW-CV (test code = 13.6 % 12.1-15.4 788-0) PLT (test code = See_Comment [Automated 777-3) message] The sy stem which generated this result transmitted reference range : 150 - 328 10*3/ ?L. The reference r radha was not used to interpret this result as normal/abnormal . MPV (test code = 10.0 fL 9.8-13 04677-8) NRBC/100 WBC (test See_Comment [Automat ed code = 8629260563) message] The system which generated this result transmitted reference range : 0.0 - 10.0 /100 WBCs. The refer ence range was not u sed to interpret th is result as normal/abnormal . NRBC x10^3 (test code <0.01 See_Comment [Auto mated = 1825048190) message] The s ystem which generated this result transmitted reference range : 10*3/?L. The reference range was not used to interpret this result as normal/abnormal . GRAN MAT (NEUT) % 79.4 % (test code = 770-8) IMM GRAN % (test code 0.70 % = 0310949287) LYMPH % (test code = 10.0 % 736-9) MONO % (test code = 5.8 % 5905-5) EOS % (test code = 3.5 % 713-8) BASO % (test code = 0.6 % 706-2) GRAN MAT x10^3(ANC) 8.05 10*3/uL 1.99-6.95 H (test code = 1378370272) IMM GRAN x10^3 (test 0.07 10*3/uL 0-0.06 H code = 0949935659) LYMPH x10^3 (test code 1.02 10*3/uL 1.09-3.23 L = 731-0) MONO x10^3 (test code 0.59 10*3/uL 0.36-1.02 = 742-7) EOS x10^3 (test code = 0.36 10*3/uL 0.06-0.53 711-2) BASO x10^3 (test code 0.06 10*3/uL 0.01-0.09 = 704-7) Lab Interpretation Abnormal (test code = 56800-6) [facility] (NA, K, CL, CO2, GLUCOSE, BUN, CREATININE, CA)2019-05-28 13:30:00 Test Item Value Reference Range Interpretation Comments NA (test code = 138 mmol/L 135-145 5911618543) K (test code = 5.5 mmol/L 3.5-5 H 1595188853) CL (test code = 107 mmol/L 98-108 7263982458) CO2 TOTAL (test code = 14 mmol/L 23-31 L 7326925678) AGAP (test code = 2-16 H 1264678402) BUN (test code = 86 mg/dL 7-23 H 3114552249) GLUCOSE (test code = 60 mg/dL 70-110 L 6205069354) CREATININE (test code = 11.37 mg/dL 0.6-1.25 H 9943822478) CALCIUM (test code = 7.8 mg/dL 8.6-10.6 L 7936696302) eGFR Calculation mL/min/1.73m2 (Non-) (test code = 1066028324) eGFR Calculation mL/min/1.73m2 () (test code = 7171755714) DAVID (test code = DAVID) Association of Glomerular Filtration Rate (GFR) and Staging of Kidney Disease*+ + + +| GFR (mL/min/1.73 m2)?| With Kidney Damage?|?Without Kidney Damage+ --------+ --------+ +|?>90?|?S tage one?|? Normal?+ ---------+ ---------+ +|?60-89? |?Stage two?|? Decreased GFR? + --+ --+ ------+|?30-59?|?Stage three?|? Stage three? + --+ --+ ------+|?15-29?|?Stage four? |? Stage four?+ -------+ -------+ +|?<15 (or dialysis)?|?Stage five? |? Stage five?+ -------+ -------+ +*Each stage assumes the associated GFR level has been in effect for at least three months.?Stages 1 to 5, with or without kidney disease, indicate chronic kidney disease.Notes: Determination of stages one and two (with eGFR >59mL/min/1.73 m2) requires estimation of kidney damage for at least three months as defined by structural or functional abnormalities of the kidney, manifested by either:Pathological abnormalities or Markers of kidney damage (including abnormalities in the composition of the blood or urine or abnormalities in imaging tests). Lab Interpretation Abnormal (test code = 47538-1) [facility] (ALB, T.PRO, BILI T, BU/BC, ALT, AST, ALK PHOS)2019-05-28 13:30:00 Test Item Value Reference Range Interpretation Comments TOTAL BILI (test code = 0088622348) 0.2 mg/dL 0.1-1.1 BILI UNCON (test code = 5051455528) 0.0 mg/dL 0.1-1.1 L BILI CONJ (test code = 0007957571) 0.0 mg/dL 0-0.3 T PROTEIN (test code = 1706987227) 7.1 g/dL 6.3-8.2 ALBUMIN (test code = 4339104016) 4.3 g/dL 3.5-5 ALK PHOS (test code = 3523376302) 111 U/L 34-122 ALT(SGPT) (test code = 6327292830) 72 U/L 9-51 H AST(SGOT) (test code = 0747369198) 48 U/L 13-40 H Lab Interpretation (test code = Abnormal 74512-1) [facility] GLUCOSE (AUTOMATED)2019-05-28 13:13:00 Test Item Value Reference Range Interpretation Comments POCT GLU (test code = 6538886818) 62 mg/dL 70-110 L Lab Interpretation (test code = Abnormal 22724-8) [facility] GLUCOSE (AUTOMATED)2019-05-24 16:29:00 Test Item Value Reference Range Interpretation Comments POCT GLU (test code = 9123981969) 297 mg/dL 70-110 H Lab Interpretation (test code = Abnormal 84800-4) [facility] Metabolic Panel (NA, K, CL, CO2, GLUCOSE, BUN, CREATININE, CA)2019-05-24 13:36:00 Test Item Value Reference Range Interpretation Comments NA (test code = 135 mmol/L 135-145 7546639343) K (test code = 6.7 mmol/L 3.5-5 HH 8839650463) CL (test code = 106 mmol/L 98-108 2357636673) CO2 TOTAL (test code = 13 mmol/L 23-31 L 6566061433) AGAP (test code = 2-16 0176645648) BUN (test code = 84 mg/dL 7-23 H 7843919833) GLUCOSE (test code = 65 mg/dL 70-110 L 8561311391) CREATININE (test code = 12.27 mg/dL 0.6-1.25 H 2034679900) CALCIUM (test code = 7.9 mg/dL 8.6-10.6 L 6765235678) eGFR Calculation mL/min/1.73m2 (Non-) (test code = 9153357513) eGFR Calculation mL/min/1.73m2 () (test code = 9766312210) DAVID (test code = DAVID) Association of Glomerular Filtration Rate (GFR) and Staging of Kidney Disease*+ + + +| GFR (mL/min/1.73 m2)?| With Kidney Damage?|?Without Kidney Damage+ --------+ --------+ +|?>90?|?S tage one?|? Normal?+ ---------+ ---------+ +|?60-89? |?Stage two?|? Decreased GFR? + --+ --+ ------+|?30-59?|?Stage three?|? Stage three? + --+ --+ ------+|?15-29?|?Stage four? |? Stage four?+ -------+ -------+ +|?<15 (or dialysis)?|?Stage five? |? Stage five?+ -------+ -------+ +*Each stage assumes the associated GFR level has been in effect for at least three months.?Stages 1 to 5, with or without kidney disease, indicate chronic kidney disease.Notes: Determination of stages one and two (with eGFR >59mL/min/1.73 m2) requires estimation of kidney damage for at least three months as defined by structural or functional abnormalities of the kidney, manifested by either:Pathological abnormalities or Markers of kidney damage (including abnormalities in the composition of the blood or urine or abnormalities in imaging tests). Lab Interpretation Abnormal (test code = 39283-9) [facility] (ALB, T.PRO, BILI T, BU/BC, ALT, AST, ALK PHOS)2019-05-24 13:32:00 Test Item Value Reference Range Interpretation Comments TOTAL BILI (test code = 0131249587) 0.4 mg/dL 0.1-1.1 BILI UNCON (test code = 4288700925) 0.0 mg/dL 0.1-1.1 L BILI CONJ (test code = 5530019671) 0.0 mg/dL 0-0.3 T PROTEIN (test code = 9103351697) 7.5 g/dL 6.3-8.2 ALBUMIN (test code = 9050893242) 4.5 g/dL 3.5-5 ALK PHOS (test code = 2676539056) 92 U/L 34-122 ALT(SGPT) (test code = 2617722194) 38 U/L 9-51 AST(SGOT) (test code = 3283601751) 45 U/L 13-40 H Lab Interpretation (test code = Abnormal 03088-1) [facility] WITH [id number] 13:22:00 Test Item Value Reference Range Interpretation Comments WBC (test code = See_Comment [Automated 1593-2) message] The sy stem which generated this result transmitted reference range : 4.20 - 10.70 10*3/?L. The reference range was not used to interpret this result as normal/abnormal . RBC (test code = See_Comment L [Automated 319-8) message] The sy stem which generated this result transmitted reference range : 4.26 - 5.52 10*6/?L. The reference range was not used to interpret this result as normal/abnormal . HGB (test code = 8.3 g/dL 12.2-16.4 L 718-7) HCT (test code = 26.2 % 38.4-49.3 L 4544-3) MCV (test code = 88.5 fL 81.7-95.6 787-2) MCH (test code = 28.0 pg 26.1-32.7 785-6) MCHC (test code = 31.7 g/dL 31.2-35 786-4) RDW-SD (test code = 45.5 fL 38.5-51.6 14904-9) RDW-CV (test code = 14.1 % 12.1-15.4 788-0) PLT (test code = See_Comment [Automated 777-3) message] The sy stem which generated this result transmitted reference range : 150 - 328 10*3/ ?L. The reference r radha was not used to interpret this result as normal/abnormal . MPV (test code = 10.7 fL 9.8-13 41174-2) NRBC/100 WBC (test See_Comment [Automat ed code = 4399879400) message] The system which generated this result transmitted reference range : 0.0 - 10.0 /100 WBCs. The refer ence range was not u sed to interpret th is result as normal/abnormal . NRBC x10^3 (test code <0.01 See_Comment [Auto mated = 6623885416) message] The s ystem which generated this result transmitted reference range : 10*3/?L. The reference range was not used to interpret this result as normal/abnormal . GRAN MAT (NEUT) % 63.5 % (test code = 770-8) IMM GRAN % (test code 0.80 % = 2888387214) LYMPH % (test code = 18.9 % 736-9) MONO % (test code = 10.9 % 5905-5) EOS % (test code = 4.7 % 713-8) BASO % (test code = 1.2 % 706-2) GRAN MAT x10^3(ANC) 4.19 10*3/uL 1.99-6.95 (test code = 9482539554) IMM GRAN x10^3 (test 0.05 10*3/uL 0-0.06 code = 9938578271) LYMPH x10^3 (test code 1.25 10*3/uL 1.09-3.23 = 731-0) MONO x10^3 (test code 0.72 10*3/uL 0.36-1.02 = 742-7) EOS x10^3 (test code = 0.31 10*3/uL 0.06-0.53 711-2) BASO x10^3 (test code 0.08 10*3/uL 0.01-0.09 = 704-7) Lab Interpretation Abnormal (test code = 05225-6) [facility] B Surface Antibody (HBsAb)2019-05-21 03:06:00 Test Item Value Reference Range Interpretation Comments HBsAB (test code = Negative 4114428329) HBsAb mIU/mL Semi-Quantitative (test code = 1466846422) DAVID (test code = Interpretation:?Hepatitis DAVID) B Surface Antibody? ? Negative - Patient is considered to be not immune to infection with HBV.? Positive - Anti-HBs detected at greater than or equal to 12 mIU/mL.?Patient is considered to be immune to infection with HBV.? [facility] B Surface Antigen (HBsAg)2019-05-21 02:48:00 Test Item Value Reference Range Interpretation Comments HBsAg Semi-Quantitative (test code = 5195-3) [facility]2019-05-20 16:47:00 Test Item Value Reference Range Interpretation Comments POCT GLU (test code = 6994660614) 314 mg/dL 70-110 H Lab Interpretation (test code = Abnormal 10829-9) [facility] METABOLIC PANEL (NA, K, CL, CO2, GLUCOSE, BUN, CREATININE, CA)2019-05-20 13:22:00 Test Item Value Reference Range Interpretation Comments NA (test code = 132 mmol/L 135-145 L 5210225032) K (test code = 6.0 mmol/L 3.5-5 H 1226710818) CL (test code = 101 mmol/L 98-108 2562767508) CO2 TOTAL (test code = 11 mmol/L 23-31 L 5452112986) AGAP (test code = 2-16 H 5383478201) BUN (test code = 89 mg/dL 7-23 H 8028059978) GLUCOSE (test code = 77 mg/dL 70-110 2628065647) CREATININE (test code = 13.90 mg/dL 0.6-1.25 H 2444907842) CALCIUM (test code = 7.3 mg/dL 8.6-10.6 L 2549975336) eGFR Calculation mL/min/1.73m2 (Non-) (test code = 4312728411) eGFR Calculation mL/min/1.73m2 () (test code = 7303774228) DAVID (test code = DAVID) Association of Glomerular Filtration Rate (GFR) and Staging of Kidney Disease*+ + + +| GFR (mL/min/1.73 m2)?| With Kidney Damage?|?Without Kidney Damage+ --------+ --------+ +|?>90?|?S tage one?|? Normal?+ ---------+ ---------+ +|?60-89? |?Stage two?|? Decreased GFR? + --+ --+ ------+|?30-59?|?Stage three?|? Stage three? + --+ --+ ------+|?15-29??|?Stag e four? |? Stage four?+ -------+ -------+ +|?<15 (or dialysis)?|?Stage five? |? Stage five?+ -------+ -------+ +*Each stage assumes the associated GFR level has been in effect for at least three months.?Stages 1 to 5, with or without kidney disease, indicate chronic kidney disease.Notes: Determination of stages one and two (with eGFR >59mL/min/1.73 m2) requires estimation of kidney damage for at least three months as defined by structural or functional abnormalities of the kidney, manifested by either:Pathological abnormalities or Markers of kidney damage (including abnormalities in the composition of the blood or urine or abnormalities in imaging tests). Lab Interpretation Abnormal (test code = 08282-0) [facility] WITH [id number] 12:53:00 Test Item Value Reference Range Interpretation Comments WBC (test code = See_Comment [Automated 6690-2) message] The sy stem which generated this result transmitted reference range : 4.20 - 10.70 10*3/?L. The reference range was not used to interpret this result as normal/abnormal . RBC (test code = See_Comment L [Automated 789-8) message] The sy stem which generated this result transmitted reference range : 4.26 - 5.52 10*6/?L. The reference range was not used to interpret this result as normal/abnormal . HGB (test code = 7.9 g/dL 12.2-16.4 L 718-7) HCT (test code = 23.7 % 38.4-49.3 L 4544-3) MCV (test code = 86.8 fL 81.7-95.6 787-2) MCH (test code = 28.9 pg 26.1-32.7 785-6) MCHC (test code = 33.3 g/dL 31.2-35 786-4) RDW-SD (test code = 43.7 fL 38.5-51.6 22175-9) RDW-CV (test code = 13.9 % 12.1-15.4 788-0) PLT (test code = See_Comment [Automated 777-3) message] The sy stem which generated this result transmitted reference range : 150 - 328 10*3/ ?L. The reference r radha was not used to interpret this result as normal/abnormal . MPV (test code = 10.3 fL 9.8-13 29180-5) NRBC/100 WBC (test See_Comment [Automat ed code = 8807773292) message] The system which generated this result transmitted reference range : 0.0 - 10.0 /100 WBCs. The refer ence range was not u sed to interpret th is result as normal/abnormal . NRBC x10^3 (test code <0.01 See_Comment [Auto mated = 1034211987) message] The s ystem which generated this result transmitted reference range : 10*3/?L. The reference range was not used to interpret this result as normal/abnormal . GRAN MAT (NEUT) % 64.1 % (test code = 770-8) IMM GRAN % (test code 0.50 % = 0541290431) LYMPH % (test code = 16.1 % 736-9) MONO % (test code = 13.4 % 5905-5) EOS % (test code = 5.0 % 713-8) BASO % (test code = 0.9 % 706-2) GRAN MAT x10^3(ANC) 3.74 10*3/uL 1.99-6.95 (test code = 1680475674) IMM GRAN x10^3 (test 0.03 10*3/uL 0-0.06 code = 2849257225) LYMPH x10^3 (test code 0.94 10*3/uL 1.09-3.23 L = 731-0) MONO x10^3 (test code 0.78 10*3/uL 0.36-1.02 = 742-7) EOS x10^3 (test code = 0.29 10*3/uL 0.06-0.53 711-2) BASO x10^3 (test code 0.05 10*3/uL 0.01-0.09 = 704-7) Lab Interpretation Abnormal (test code = 97526-0) [facility] GLUCOSE (AUTOMATED)2019-05-15 21:46:00 Test Item Value Reference Range Interpretation Comments POCT GLU (test code = 8529009838) 192 mg/dL 70-110 H Lab Interpretation (test code = Abnormal 22380-9) [facility] GLUCOSE (AUTOMATED)2019-05-15 16:39:00 Test Item Value Reference Range Interpretation Comments POCT GLU (test code = 9478071602) 188 mg/dL 70-110 H Lab Interpretation (test code = Abnormal 30942-5) [facility] GLUCOSE (AUTOMATED)2019-05-15 14:30:00 Test Item Value Reference Range Interpretation Comments POCT GLU (test code = 7274430375) 310 mg/dL 70-110 H Lab Interpretation (test code = Abnormal 41077-2) [facility] ([facility]395[facility]2019-05-15 13:12:00 Test Item Value Reference Range Interpretation Comments NA (test code = 136 mmol/L 135-145 4460554043) K (test code = 5.9 mmol/L 3.5-5 H 6235659177) CL (test code = 99 mmol/L 98-108 3470930109) CO2 TOTAL (test code = 16 mmol/L 23-31 L 1184370317) AGAP (test code = 2-16 H 9975992263) BUN (test code = 66 mg/dL 7-23 H 8395764836) GLUCOSE (test code = 57 mg/dL 70-110 L 1107752448) CREATININE (test code = 11.41 mg/dL 0.6-1.25 H 6281800274) TOTAL BILI (test code = 0.4 mg/dL 0.1-1.1 8950090404) CALCIUM (test code = 7.8 mg/dL 8.6-10.6 L 9103669519) T PROTEIN (test code = 8.5 g/dL 6.3-8.2 H 9543943229) ALBUMIN (test code = 5.2 g/dL 3.5-5 H 5914898538) ALK PHOS (test code = 122 U/L 34-122 8386203153) ALT(SGPT) (test code = 19 U/L 9-51 0542781501) AST(SGOT) (test code = 36 U/L 13-40 4651101094) eGFR Calculation mL/min/1.73m2 (Non-) (test code = 0426662055) eGFR Calculation mL/min/1.73m2 () (test code = 1548610370) DAVID (test code = DAVID) Association of Glomerular Filtration Rate (GFR) and Staging of Kidney Disease*+ + + +| GFR (mL/min/1.73 m2)?| With Kidney Damage?|?Without Kidney Damage+ --------+ --------+ +|?>90?|?S tage one?|? Normal?+ ---------+ ---------+ +|?60-89? |?Stage two?|? Decreased GFR? + --+ --+ ------+|?30-59?|?Stage three?|? Stage three? + --+ --+ ------+|?15-29?|?Stage four? |? Stage four??+ --------+ --------+ +|?<15 (or dialysis)?|?Stage five? |? Stage five?+ -------+ -------+ +*Each stage assumes the associated GFR level has been in effect for at least three months.?Stages 1 to 5, with or without kidney disease, indicate chronic kidney disease.Notes: Determination of stages one and two (with eGFR >59mL/min/1.73 m2) requires estimation of kidney damage for at least three months as defined by structural or functional abnormalities of the kidney, manifested by either:Pathological abnormalities or Markers of kidney damage (including abnormalities in the composition of the blood or urine or abnormalities in imaging tests). Lab Interpretation Abnormal (test code = 43808-5) [facility] WITH [id number] 12:59:00 Test Item Value Reference Range Interpretation Comments WBC (test code = See_Comment [Automated 6690-2) message] The sy stem which generated this result transmitted reference range : 4.20 - 10.70 10*3/?L. The reference range was not used to interpret this result as normal/abnormal . RBC (test code = See_Comment L [Automated 789-8) message] The sy stem which generated this result transmitted reference range : 4.26 - 5.52 10*6/?L. The reference range was not used to interpret this result as normal/abnormal . HGB (test code = 9.2 g/dL 12.2-16.4 L 718-7) HCT (test code = 26.9 % 38.4-49.3 L 4544-3) MCV (test code = 84.9 fL 81.7-95.6 787-2) MCH (test code = 29.0 pg 26.1-32.7 785-6) MCHC (test code = 34.2 g/dL 31.2-35 786-4) RDW-SD (test code = 41.4 fL 38.5-51.6 22687-1) RDW-CV (test code = 13.5 % 12.1-15.4 788-0) PLT (test code = See_Comment [Automated 777-3) message] The sy stem which generated this result transmitted reference range : 150 - 328 10*3/ ?L. The reference r radha was not used to interpret this result as normal/abnormal . MPV (test code = 9.7 fL 9.8-13 L 47620-9) NRBC/100 WBC (test See_Comment [Automat ed code = 4375401925) message] The system which generated this result transmitted reference range : 0.0 - 10.0 /100 WBCs. The refer ence range was not u sed to interpret th is result as normal/abnormal . NRBC x10^3 (test code <0.01 See_Comment [Auto mated = 9898047478) message] The s ystem which generated this result transmitted reference range : 10*3/?L. The reference range was not used to interpret this result as normal/abnormal . GRAN MAT (NEUT) % 66.5 % (test code = 770-8) IMM GRAN % (test code 0.70 % = 3640619064) LYMPH % (test code = 17.1 % 736-9) MONO % (test code = 9.3 % 5905-5) EOS % (test code = 5.5 % 713-8) BASO % (test code = 0.9 % 706-2) GRAN MAT x10^3(ANC) 4.50 10*3/uL 1.99-6.95 (test code = 8012884317) IMM GRAN x10^3 (test 0.05 10*3/uL 0-0.06 code = 3570260298) LYMPH x10^3 (test code 1.16 10*3/uL 1.09-3.23 = 731-0) MONO x10^3 (test code 0.63 10*3/uL 0.36-1.02 = 742-7) EOS x10^3 (test code = 0.37 10*3/uL 0.06-0.53 711-2) BASO x10^3 (test code 0.06 10*3/uL 0.01-0.09 = 704-7) Lab Interpretation Abnormal (test code = 14485-9) [facility] GLUCOSE (AUTOMATED)2019-05-15 12:25:00 Test Item Value Reference Range Interpretation Comments POCT GLU (test code = 7259934733) 56 mg/dL 70-110 L Lab Interpretation (test code = Abnormal 74700-9) [facility] GLUCOSE (AUTOMATED)2019-05-11 16:43:00 Test Item Value Reference Range Interpretation Comments POCT GLU (test code = 6188978618) 163 mg/dL 70-110 H Lab Interpretation (test code = Abnormal 43409-8) [facility] GLUCOSE (AUTOMATED)2019-05-11 12:56:00 Test Item Value Reference Range Interpretation Comments POCT GLU (test code = 6012845008) 307 mg/dL 70-110 H Lab Interpretation (test code = Abnormal 75713-2) [facility] GLUCOSE (AUTOMATED)2019-05-11 12:56:00 Test Item Value Reference Range Interpretation Comments POCT GLU (test code = 5567637647) 350 mg/dL 70-110 H Lab Interpretation (test code = Abnormal 44385-4) [facility] GLUCOSE (AUTOMATED)2019-05-11 01:33:00 Test Item Value Reference Range Interpretation Comments POCT GLU (test code = 3725908026) 409 mg/dL 70-110 H Lab Interpretation (test code = Abnormal 09760-1) [facility] METABOLIC PANEL (NA, K, CL, CO2, GLUCOSE, BUN, CREATININE, CA)2019-05-10 22:41:00 Test Item Value Reference Range Interpretation Comments NA (test code = 140 mmol/L 135-145 0766169245) K (test code = 4.1 mmol/L 3.5-5 9009425332) CL (test code = 105 mmol/L 98-108 0290186756) CO2 TOTAL (test code = 23 mmol/L 23-31 1814279389) AGAP (test code = 2-16 2303674572) BUN (test code = 34 mg/dL 7-23 H 6818463549) GLUCOSE (test code = 159 mg/dL 70-110 H 6173558621) CREATININE (test code = 6.29 mg/dL 0.6-1.25 H 2097929322) CALCIUM (test code = 7.0 mg/dL 8.6-10.6 L 0592401080) eGFR Calculation mL/min/1.73m2 (Non-) (test code = 6389129985) eGFR Calculation mL/min/1.73m2 () (test code = 5685648615) DAVID (test code = DAVID) Association of Glomerular Filtration Rate (GFR) and Staging of Kidney Disease*+ + + +| GFR (mL/min/1.73 m2)?| With Kidney Damage?|?Without Kidney Damage+ --------+ --------+ +|?>90?|?S gelye one?|? Normal?+ ---------+ ---------+ +|?60-89? |?Stage two?|? Decreased GFR? + --+ --+ ------+|?30-59?|?Stage three?|? Stage three? + --+ --+ ------+|?15-29?|?Stage four? |? Stage four?+ -------+ -------+ +|?<15 (or dialysis)?|?Stage five? |? Stage five?+ -------+ -------+ +*Each stage assumes the associated GFR level has been in effect for at least three months.?Stages 1 to 5, with or without kidney disease, indicate chronic kidney disease.Notes: Determination of stages one and two (with eGFR >59mL/min/1.73 m2) requires estimation of kidney damage for at least three months as defined by structural or functional abnormalities of the kidney, manifested by either:Pathological abnormalities or Markers of kidney damage (including abnormalities in the composition of the blood or urine or abnormalities in imaging tests). Lab Interpretation Abnormal (test code = 17794-5) [facility] [id number] 19:22:06* * * * * * * * ORIGINAL REPORT * * * * * * * *CHEST PORTABLE ONE VIEW HISTORY: post op permacath; TECHNIQUE: Frontal, portable projection of the chest is obtained. COMPARISON: 11/19/2018 FINDINGS: The lungs are clear. The heart size and mediastinal silhouetteare normal. No pleural effusion or pneumothorax is seen. A double lumen catheter is noted with the distal tip in the right atrium. CONCLUSIONS: No acute cardiopulmonary disease. [facility], Radiant Results Inft User - 05/10/2019 2:24 PM CDT* * * * * * ORIGINAL REPORT * * * * * * * *CHEST PORTABLE ONE VIEWHISTORY: post op permacath;TECHNIQUE: Frontal, portable projection of the chest is obtained.COMPARISON: 11/19/2018FINDINGS: The lungs are clear. The heart size and mediastinal silhouetteare normal. No pleural effusion or pneumothorax is seen.A double lumen catheter is noted with the distal tip in the right atrium.CONCLUSIONS: No acute cardiopulmonary disease.[facility] (NON-REPORTABLE)2019-05-10 17:50:29These images do not require a Radiology diagnostic report.[facility] POCT GLUCOSE(AGE 0-30DAYS)2019-05-10 16:03:00 Test Item Value Reference Range Interpretation Comments POCT Glu (age 0-30days) (test code 164 mg/dl 40-110 A = 3343) Lab Interpretation (test code = Abnormal 49512-6) [facility]2019-05-10 13:06:00 Test Item Value Reference Range Interpretation Comments POCT GLU (test code = 0344382953) 343 mg/dL 70-110 H Lab Interpretation (test code = Abnormal 95777-0) [facility] GLUCOSE (AUTOMATED)2019-05-10 09:33:00 Test Item Value Reference Range Interpretation Comments POCT GLU (test code = 0115053349) 392 mg/dL 70-110 H Lab Interpretation (test code = Abnormal 49594-8) [facility] GLUCOSE (AUTOMATED)2019-05-10 01:10:00 Test Item Value Reference Range Interpretation Comments POCT GLU (test code = 5633571404) 332 mg/dL 70-110 H Lab Interpretation (test code = Abnormal 96059-3) [facility] GLUCOSE (AUTOMATED)2019-05-09 21:28:00 Test Item Value Reference Range Interpretation Comments POCT GLU (test code = 9037420239) 97 mg/dL 70-110 Lab Interpretation (test code = Normal 24764-7) [facility] GLUCOSE (AUTOMATED)2019-05-09 16:45:00 Test Item Value Reference Range Interpretation Comments POCT GLU (test code = 4161580046) 248 mg/dL 70-110 H Lab Interpretation (test code = Abnormal 75993-4) [facility] GLUCOSE (AUTOMATED)2019-05-09 15:16:00 Test Item Value Reference Range Interpretation Comments POCT GLU (test code = 3392750733) 378 mg/dL 70-110 H Lab Interpretation (test code = Abnormal 16751-1) [facility] GLUCOSE (AUTOMATED)2019-05-09 15:16:00 Test Item Value Reference Range Interpretation Comments POCT GLU (test code = 7375780272) 391 mg/dL 70-110 H Lab Interpretation (test code = Abnormal 63556-8) [facility] (NA, K, CL, CO2, GLUCOSE, BUN, CREATININE, CA)2019-05-09 13:31:00 Test Item Value Reference Range Interpretation Comments NA (test code = 137 mmol/L 135-145 4342474847) K (test code = 6.0 mmol/L 3.5-5 H 7102280925) CL (test code = 107 mmol/L 98-108 2217929946) CO2 TOTAL (test code = 12 mmol/L 23-31 L 8671106633) AGAP (test code = 2-16 H 0246854784) BUN (test code = 83 mg/dL 7-23 H 2595505486) GLUCOSE (test code = 149 mg/dL 70-110 H 0456015148) CREATININE (test code = 14.15 mg/dL 0.6-1.25 H 4066720992) CALCIUM (test code = 7.2 mg/dL 8.6-10.6 L 4046860153) eGFR Calculation mL/min/1.73m2 (Non-) (test code = 3614215483) eGFR Calculation mL/min/1.73m2 () (test code = 7297657501) DAVID (test code = DAVID) Association of Glomerular Filtration Rate (GFR) and Staging of Kidney Disease*+ + + +| GFR (mL/min/1.73 m2)?| With Kidney Damage?|?Without Kidney Damage+ --------+ --------+ +|?>90?|?S tage one?|? Normal?+ ---------+ ---------+ +|?60-89? |?Stage two?|? Decreased GFR? + --+ --+ ------+|?30-59?|?Stage three?|? Stage three? + --+ --+ ------+|?15-29?|?Stage four? |? Stage four?+ -------+ -------+ +|?<15 (or dialysis)?|?Stage five? |? Stage five?+ -------+ -------+ +*Each stage assumes the associated GFR level has been in effect for at least three months.?Stages 1 to 5, with or without kidney disease, indicate chronic kidney disease.Notes: Determination of stages one and two (with eGFR >59mL/min/1.73 m2) requires estimation of kidney damage for at least three months as defined by structural or functional abnormalities of the kidney, manifested by either:Pathological abnormalities or Markers of kidney damage (including abnormalities in the composition of the blood or urine or abnormalities in imaging tests). Lab Interpretation Abnormal (test code = 39532-6) [facility]. METABOLIC PANEL (48259)2019-05-07 12:30:00 Test Item Value Reference Range Interpretation Comments NA (test code = 137 mmol/L 135-145 2846063222) K (test code = 5.4 mmol/L 3.5-5 H 6931369555) CL (test code = 104 mmol/L 98-108 1131396445) CO2 TOTAL (test code = 14 mmol/L 23-31 L 6954135332) AGAP (test code = 2-16 H 1493630076) BUN (test code = 63 mg/dL 7-23 H 1942567615) GLUCOSE (test code = 170 mg/dL 70-110 H 2218609164) CREATININE (test code = 11.20 mg/dL 0.6-1.25 H 4785896901) TOTAL BILI (test code = 0.2 mg/dL 0.1-1.9 9627119174) CALCIUM (test code = 7.9 mg/dL 8.6-10.6 L 8323305400) T PROTEIN (test code = 7.3 g/dL 6.3-8.2 7641075313) ALBUMIN (test code = 4.5 g/dL 3.5-5 7887825884) ALK PHOS (test code = 148 U/L 34-122 H 9207003083) ALT(SGPT) (test code = 39 U/L 9-51 4676704759) AST(SGOT) (test code = 24 U/L 13-40 6630919010) eGFR Calculation mL/min/1.73m2 (Non-) (test code = 4543678009) eGFR Calculation mL/min/1.73m2 () (test code = 7172944622) DAVID (test code = DAVID) Association of Glomerular Filtration Rate (GFR) and Staging of Kidney Disease*+ + + +| GFR (mL/min/1.73 m2)?| With Kidney Damage?|?Without Kidney Damage+ --------+ --------+ +|?>90?|?S tage one?|? Normal?+ ---------+ ---------+ +|?60-89? |?Stage two?|? Decreased GFR? + --+ --+ ------+|?30-59?|?Stage three?|? Stage three? + --+ --+ ------+|?15-29?|?Stage four? |? Stage four?+ -------+ -------+ +|?<15 (or dialysis)?|?Stage five? |? Stage five?+ -------+ -------+ +*Each stage assumes the associated GFR level has been in effect for at least three months.?Stages 1 to 5, with or without kidney disease, indicate chronic kidney disease.Notes: Determination of stages one and two (with eGFR >59mL/min/1.73 m2) requires estimation of kidney damage for at least three months as defined by structural or functional abnormalities of the kidney, manifested by either:Pathological abnormalities or Markers of kidney damage (including abnormalities in the composition of the blood or urine or abnormalities in imaging tests). Lab Interpretation Abnormal (test code = 10398-8) [facility] / [id number] 12:06:00 Test Item Value Reference Range Interpretation Comments WBC (test code = 6690-2) See_Comment [A utomated message] The system [employer] generated this result transmit reyna reference range : 4.20 - 10.70 10*3/?L. The reference range was not used to interpret this result as normal/abnormal . RBC (test code = 789-8) See_Comment L [Au tomated message] The system [employer] generated this result transmit reyna reference range : 4.26 - 5.52 10* 6/?L. The reference r radha was not used to interpret this result as normal/abnormal . HGB (test code = 718-7) 8.3 g/dL 12.2-16.4 L HCT (test code = 4544-3) 24.8 % 38.4-49.3 L MCH (test code = 785-6) 29.0 pg 26.1-32.7 MCV (test code = 787-2) 86.7 fL 81.7-95.6 MCHC (test code = 786-4) 33.5 g/dL 31.2-35 PLT (test code = 777-3) See_Comment [Au tomated message] The system [employer] generated this result transmit reyna reference range : 150 - 328 10*3/?L. The reference range was not used to interpret this result as normal/abnormal . MPV (test code = 9.9 fL 9.8-13 32086-5) RDW-CV (test code = 13.2 % 12.1-15.4 788-0) RDW-SD (test code = 41.8 fL 38.5-51.6 17655-9) NRBC x10^3 (test code = <0.01 See_Comment [Au tomated message] 8625708960) The system [employer] generated this result transmit reyan reference range : 10*3/?L. The reference range was not used to interpret this result as normal/abnormal . NRBC/100 WBC (test code See_Comment [Au tomated message] = 6423933261) The system [employer] generated this result transmit reyna reference range : 0.0 - 10.0 /100 WBC s. The reference r radha was not used to interpret this result as normal/abnormal . IPF % (test code = 1.2-10.7 4893239091) Lab Interpretation (test Abnormal code = 29024-0) [facility] GLUCOSE (AUTOMATED)2019-05-03 20:40:00 Test Item Value Reference Range Interpretation Comments POCT GLU (test code = 2444261278) 116 mg/dL 70-110 H Lab Interpretation (test code = Abnormal 46464-5) [facility] GLUCOSE (AUTOMATED)2019-05-03 17:25:00 Test Item Value Reference Range Interpretation Comments POCT GLU (test code = 5454916425) 106 mg/dL 70-110 Lab Interpretation (test code = Normal 63407-0) [facility] GLUCOSE (AUTOMATED)2019-05-03 17:25:00 Test Item Value Reference Range Interpretation Comments POCT GLU (test code = 6177513048) 213 mg/dL 70-110 H Lab Interpretation (test code = Abnormal 13038-4) [facility] Metabolic Panel (NA, K, CL, CO2, GLUCOSE, BUN, CREATININE, CA)2019-05-03 13:19:00 Test Item Value Reference Range Interpretation Comments NA (test code = 137 mmol/L 135-145 6326051600) K (test code = 5.5 mmol/L 3.5-5 H 8171251257) CL (test code = 108 mmol/L 98-108 4948897516) CO2 TOTAL (test code = 9 mmol/L 23-31 L 4881348735) AGAP (test code = 2-16 H 2629095464) BUN (test code = 91 mg/dL 7-23 H 7267315836) GLUCOSE (test code = 99 mg/dL 70-110 8155805912) CREATININE (test code = 12.92 mg/dL 0.6-1.25 H 9462429201) CALCIUM (test code = 6.8 mg/dL 8.6-10.6 L 5829337750) eGFR Calculation mL/min/1.73m2 (Non-) (test code = 3263317672) eGFR Calculation mL/min/1.73m2 () (test code = 8628500722) DAVID (test code = DAVID) Association of Glomerular Filtration Rate (GFR) and Staging of Kidney Disease*+ + + +| GFR (mL/min/1.73 m2)?| With Kidney Damage?|?Without Kidney Damage+ --------+ --------+ +|?>90?|?S tage one?|? Normal?+ ---------+ ---------+ +|?60-89? |?Stage two?|? Decreased GFR? + --+ --+ ------+|?30-59?|?Stage three?|? Stage three? + --+ --+ ------+|?15-29?|?Stage four? |? Stage four?+ -------+ -------+ +|?<15 (or dialysis)?|?Stage five? |? Stage five?+ -------+ -------+ +*Each stage assumes the associated GFR level has been in effect for at least three months.?Stages 1 to 5, with or without kidney disease, indicate chronic kidney disease.Notes: Determination of stages one and two (with eGFR >59mL/min/1.73 m2) requires estimation of kidney damage for at least three months as defined by structural or functional abnormalities of the kidney, manifested by either:Pathological abnormalities or Markers of kidney damage (including abnormalities in the composition of the blood or urine or abnormalities in imaging tests). Lab Interpretation Abnormal (test code = 36236-4) [facility] (ALB, T.PRO, BILI T, BU/BC, ALT, AST, ALK PHOS)2019-05-03 13:06:00 Test Item Value Reference Range Interpretation Comments TOTAL BILI (test code = 2224749274) 0.3 mg/dL 0.1-1.1 BILI UNCON (test code = 8221888159) 0.0 mg/dL 0.1-1.1 L BILI CONJ (test code = 4398993248) 0.0 mg/dL 0-0.3 T PROTEIN (test code = 1052746039) 7.0 g/dL 6.3-8.2 ALBUMIN (test code = 2699148489) 4.2 g/dL 3.5-5 ALK PHOS (test code = 5187295870) 153 U/L 34-122 H ALT(SGPT) (test code = 2938792920) 51 U/L 9-51 AST(SGOT) (test code = 6101771751) 43 U/L 13-40 H Lab Interpretation (test code = Abnormal 20215-3) [facility] WITH [id number] 12:51:00 Test Item Value Reference Range Interpretation Comments WBC (test code = See_Comment [Automated 6690-2) message] The sy stem which generated this result transmitted reference range : 4.20 - 10.70 10*3/?L. The reference range was not used to interpret this result as normal/abnormal . RBC (test code = See_Comment L [Automated 789-8) message] The sy stem which generated this result transmitted reference range : 4.26 - 5.52 10*6/?L. The reference range was not used to interpret this result as normal/abnormal . HGB (test code = 7.1 g/dL 12.2-16.4 L 718-7) HCT (test code = 20.9 % 38.4-49.3 L 4544-3) MCV (test code = 87.4 fL 81.7-95.6 787-2) MCH (test code = 29.7 pg 26.1-32.7 785-6) MCHC (test code = 34.0 g/dL 31.2-35 786-4) RDW-SD (test code = 42.1 fL 38.5-51.6 03128-8) RDW-CV (test code = 13.3 % 12.1-15.4 788-0) PLT (test code = See_Comment [Automated 777-3) message] The sy stem which generated this result transmitted reference range : 150 - 328 10*3/ ?L. The reference r radha was not used to interpret this result as normal/abnormal . MPV (test code = 10.7 fL 9.8-13 83817-8) NRBC/100 WBC (test See_Comment [Automat ed code = 6175241766) message] The system which generated this result transmitted reference range : 0.0 - 10.0 /100 WBCs. The refer ence range was not u sed to interpret th is result as normal/abnormal . NRBC x10^3 (test code <0.01 See_Comment [Auto mated = 4668592419) message] The s ystem which generated this result transmitted reference range : 10*3/?L. The reference range was not used to interpret this result as normal/abnormal . GRAN MAT (NEUT) % 62.0 % (test code = 770-8) IMM GRAN % (test code 1.00 % = 9251422115) LYMPH % (test code = 20.3 % 736-9) MONO % (test code = 10.2 % 5905-5) EOS % (test code = 6.1 % 713-8) BASO % (test code = 0.4 % 706-2) GRAN MAT x10^3(ANC) 4.25 10*3/uL 1.99-6.95 (test code = 4137447632) IMM GRAN x10^3 (test 0.07 10*3/uL 0-0.06 H code = 0386722265) LYMPH x10^3 (test code 1.39 10*3/uL 1.09-3.23 = 731-0) MONO x10^3 (test code 0.70 10*3/uL 0.36-1.02 = 742-7) EOS x10^3 (test code = 0.42 10*3/uL 0.06-0.53 711-2) BASO x10^3 (test code 0.03 10*3/uL 0.01-0.09 = 704-7) Lab Interpretation Abnormal (test code = 61127-3) [facility] GLUCOSE (AUTOMATED)2019-04-29 17:33:00 Test Item Value Reference Range Interpretation Comments POCT GLU (test code = 2857543034) 200 mg/dL 70-110 H Lab Interpretation (test code = Abnormal 48909-5) [facility] GLUCOSE (AUTOMATED)2019-04-29 13:02:00 Test Item Value Reference Range Interpretation Comments POCT GLU (test code = 7979428686) 100 mg/dL 70-110 Lab Interpretation (test code = Normal 89649-2) [facility] METABOLIC PANEL (NA, K, CL, CO2, GLUCOSE, BUN, CREATININE, CA)2019-04-29 11:40:00 Test Item Value Reference Range Interpretation Comments NA (test code = 133 mmol/L 135-145 L 1319269525) K (test code = 6.1 mmol/L 3.5-5 HH 9813751096) CL (test code = 102 mmol/L 98-108 9308224066) CO2 TOTAL (test code = 11 mmol/L 23-31 L 0278105667) AGAP (test code = 2-16 H 2721746019) BUN (test code = 98 mg/dL 7-23 H 6677963592) GLUCOSE (test code = 131 mg/dL 70-110 H 5958374117) CREATININE (test code = 11.78 mg/dL 0.6-1.25 H 7272171439) CALCIUM (test code = 7.3 mg/dL 8.6-10.6 L 7572735172) eGFR Calculation mL/min/1.73m2 (Non-) (test code = 0522354576) eGFR Calculation mL/min/1.73m2 () (test code = 0446180010) DAVID (test code = DAVID) Association of Glomerular Filtration Rate (GFR) and Staging of Kidney Disease*+ + + +| GFR (mL/min/1.73 m2)?| With Kidney Damage?|?Without Kidney Damage+ --------+ --------+ +|?>90?|?S tage one?|? Normal?+ ---------+ ---------+ +|?60-89? |?Stage two?|? Decreased GFR? + --+ --+ ------+|?30-59?|?Stage three?|? Stage three? + --+ --+ ------+|?15-29?|?Stage four? |? Stage four?+ -------+ -------+ +|?<15 (or dialysis)?|?Stage five?? |? Stage five?+ -------+ -------+ +*Each stage assumes the associated GFR level has been in effect for at least three months.?Stages 1 to 5, with or without kidney disease, indicate chronic kidney disease.Notes: Determination of stages one and two (with eGFR >59mL/min/1.73 m2) requires estimation of kidney damage for at least three months as defined by structural or functional abnormalities of the kidney, manifested by either:Pathological abnormalities or Markers of kidney damage (including abnormalities in the composition of the blood or urine or abnormalities in imaging tests). Lab Interpretation Abnormal (test code = 89915-5) [facility] WITH [id number] 11:27:00 Test Item Value Reference Range Interpretation Comments WBC (test code = See_Comment [Automated 6090-2) message] The sy stem which generated this result transmitted reference range : 4.20 - 10.70 10*3/?L. The reference range was not used to interpret this result as normal/abnormal . RBC (test code = See_Comment L [Automated 789-8) message] The sy stem which generated this result transmitted reference range : 4.26 - 5.52 10*6/?L. The reference range was not used to interpret this result as normal/abnormal . HGB (test code = 8.0 g/dL 12.2-16.4 L 718-7) HCT (test code = 23.9 % 38.4-49.3 L 4544-3) MCV (test code = 87.5 fL 81.7-95.6 787-2) MCH (test code = 29.3 pg 26.1-32.7 785-6) MCHC (test code = 33.5 g/dL 31.2-35 786-4) RDW-SD (test code = 41.4 fL 38.5-51.6 71609-6) RDW-CV (test code = 13.1 % 12.1-15.4 788-0) PLT (test code = See_Comment [Automated 777-3) message] The sy stem which generated this result transmitted reference range : 150 - 328 10*3/ ?L. The reference r radha was not used to interpret this result as normal/abnormal . MPV (test code = 9.7 fL 9.8-13 L 59595-1) NRBC/100 WBC (test See_Comment [Automat ed code = 6006035951) message] The system which generated this result transmitted reference range : 0.0 - 10.0 /100 WBCs. The refer ence range was not u sed to interpret th is result as normal/abnormal . NRBC x10^3 (test code <0.01 See_Comment [Auto mated = 2063589096) message] The s ystem which generated this result transmitted reference range : 10*3/?L. The reference range was not used to interpret this result as normal/abnormal . GRAN MAT (NEUT) % 72.0 % (test code = 770-8) IMM GRAN % (test code 1.10 % = 5273750629) LYMPH % (test code = 15.3 % 736-9) MONO % (test code = 5.7 % 5905-5) EOS % (test code = 5.3 % 713-8) BASO % (test code = 0.6 % 706-2) GRAN MAT x10^3(ANC) 5.67 10*3/uL 1.99-6.95 (test code = 8783530374) IMM GRAN x10^3 (test 0.09 10*3/uL 0-0.06 H code = 7100518923) LYMPH x10^3 (test code 1.21 10*3/uL 1.09-3.23 = 731-0) MONO x10^3 (test code 0.45 10*3/uL 0.36-1.02 = 742-7) EOS x10^3 (test code = 0.42 10*3/uL 0.06-0.53 711-2) BASO x10^3 (test code 0.05 10*3/uL 0.01-0.09 = 704-7) Lab Interpretation Abnormal (test code = 59673-9) [facility] GLUCOSE (AUTOMATED)2019-04-24 21:54:00 Test Item Value Reference Range Interpretation Comments POCT GLU (test code = 5188003991) 148 mg/dL 70-110 H Lab Interpretation (test code = Abnormal 32070-0) [facility] GLUCOSE (AUTOMATED)2019-04-24 16:54:00 Test Item Value Reference Range Interpretation Comments POCT GLU (test code = 9912044771) 218 mg/dL 70-110 H Lab Interpretation (test code = Abnormal 07231-3) [facility] GLUCOSE (AUTOMATED)2019-04-24 16:54:00 Test Item Value Reference Range Interpretation Comments POCT GLU (test code = 3788821507) 104 mg/dL 70-110 Lab Interpretation (test code = Normal 43581-3) [facility] Metabolic Panel (NA, K, CL, CO2, GLUCOSE, BUN, CREATININE, CA)2019-04-24 13:00:00 Test Item Value Reference Range Interpretation Comments NA (test code = 127 mmol/L 135-145 L 7187827633) K (test code = 5.0 mmol/L 3.5-5 0266467635) CL (test code = 94 mmol/L 98-108 L 5487244545) CO2 TOTAL (test code = 13 mmol/L 23-31 L 2206628941) AGAP (test code = 2-16 H 4821471975) BUN (test code = 89 mg/dL 7-23 H 8980479538) GLUCOSE (test code = 303 mg/dL 70-110 H 5244883711) CREATININE (test code = 10.75 mg/dL 0.6-1.25 H 1759744114) CALCIUM (test code = 6.8 mg/dL 8.6-10.6 L 8092656259) eGFR Calculation mL/min/1.73m2 (Non-) (test code = 3386910549) eGFR Calculation mL/min/1.73m2 () (test code = 5838464885) DAVID (test code = DAVID) Association of Glomerular Filtration Rate (GFR) and Staging of Kidney Disease*+ + + +| GFR (mL/min/1.73 m2)?| With Kidney Damage?|?Without Kidney Damage+ --------+ --------+ +|?>90?|?S tage one?|? Normal?+ ---------+ ---------+ +|?60-89? |?Stage two?|? Decreased GFR? + --+ --+ ------+|?30-59?|?Stage three?|? Stage three? + --+ --+ ------+|?15-29?|?Stage four? |? Stage four?+ -------+ -------+ +|?<15 (or dialysis)?|?Stage five? |? Stage five?+ -------+ -------+ +*Each stage assumes the associated GFR level has been in effect for at least three months.?Stages 1 to 5, with or without kidney disease, indicate chronic kidney disease.Notes: Determination of stages one and two (with eGFR >59mL/min/1.73 m2) requires estimation of kidney damage for at least three months as defined by structural or functional abnormalities of the kidney, manifested by either:Pathological abnormalities or Markers of kidney damage (including abnormalities in the composition of the blood or urine or abnormalities in imaging tests). Lab Interpretation Abnormal (test code = 91572-4) [facility] GLUCOSE (AUTOMATED)2019-04-21 01:52:00 Test Item Value Reference Range Interpretation Comments POCT GLU (test code = 8905851708) 156 mg/dL 70-110 H Lab Interpretation (test code = Abnormal 97860-1) [facility] GLUCOSE (AUTOMATED)2019-04-20 21:32:00 Test Item Value Reference Range Interpretation Comments POCT GLU (test code = 4824258664) 182 mg/dL 70-110 H Lab Interpretation (test code = Abnormal 64191-6) [facility]-04-20 20:37:00 Test Item Value Reference Range Interpretation Comments POCT GLU (test code = 9277828545) 216 mg/dL 70-110 H Lab Interpretation (test code = Abnormal 48753-5) [facility] Metabolic Panel (NA, K, CL, CO2, GLUCOSE, BUN, CREATININE, CA)2019-04-20 14:24:00 Test Item Value Reference Range Interpretation Comments NA (test code = 135 mmol/L 135-145 1237309574) K (test code = 5.8 mmol/L 3.5-5 H 2368068967) CL (test code = 105 mmol/L 98-108 2959515131) CO2 TOTAL (test code = 8 mmol/L 23-31 L 8173752982) AGAP (test code = 2-16 H 9074394302) BUN (test code = 90 mg/dL 7-23 H 5323179756) GLUCOSE (test code = 191 mg/dL 70-110 H 6219019209) CREATININE (test code = 13.86 mg/dL 0.6-1.25 H 6975093568) CALCIUM (test code = 7.3 mg/dL 8.6-10.6 L 3818871127) eGFR Calculation mL/min/1.73m2 (Non-) (test code = 8995215324) eGFR Calculation mL/min/1.73m2 () (test code = 8304396907) DAVID (test code = DAVID) Association of Glomerular Filtration Rate (GFR) and Staging of Kidney Disease*+ + + +| GFR (mL/min/1.73 m2)?| With Kidney Damage?|?Without Kidney Damage+ --------+ --------+ +|?>90?|?S gelye one?|? Normal?+ ---------+ ---------+ +|?60-89? |?Stage two?|? Decreased GFR? + --+ --+ ------+|?30-59?|?Stage three?|? Stage three? + --+ --+ ------+|?15-29?|?Stage four? |? Stage four?+ -------+ -------+ +|?<15 (or dialysis)?|?Stage five? |? Stage five?+ -------+ -------+ +*Each stage assumes the associated GFR level has been in effect for at least three months.?Stages 1 to 5, with or without kidney disease, indicate chronic kidney disease.Notes: Determination of stages one and two (with eGFR >59mL/min/1.73 m2) requires estimation of kidney damage for at least three months as defined by structural or functional abnormalities of the kidney, manifested by either:Pathological abnormalities or Markers of kidney damage (including abnormalities in the composition of the blood or urine or abnormalities in imaging tests). Lab Interpretation Abnormal (test code = 85452-1) [facility] (ALB, T.PRO, BILI T, BU/BC, ALT, AST, ALK PHOS)2019-04-20 14:17:00 Test Item Value Reference Range Interpretation Comments TOTAL BILI (test code = 6802234376) 0.3 mg/dL 0.1-1.1 BILI UNCON (test code = 1200020203) 0.0 mg/dL 0.1-1.1 L BILI CONJ (test code = 0906469208) 0.0 mg/dL 0-0.3 T PROTEIN (test code = 4774933289) 7.1 g/dL 6.3-8.2 ALBUMIN (test code = 0952705302) 4.4 g/dL 3.5-5 ALK PHOS (test code = 4914080547) 131 U/L 34-122 H ALT(SGPT) (test code = 2539141472) 30 U/L 9-51 AST(SGOT) (test code = 9122005615) 18 U/L 13-40 Lab Interpretation (test code = Abnormal 41785-3) [facility] WITH [id number] 13:35:00 Test Item Value Reference Range Interpretation Comments WBC (test code = See_Comment [Automated 0890-2) message] The sy stem which generated this result transmitted reference range : 4.20 - 10.70 10*3/?L. The reference range was not used to interpret this result as normal/abnormal . RBC (test code = See_Comment L [Automated 039-8) message] The sy stem which generated this result transmitted reference range : 4.26 - 5.52 10*6/?L. The reference range was not used to interpret this result as normal/abnormal . HGB (test code = 8.0 g/dL 12.2-16.4 L 718-7) HCT (test code = 23.8 % 38.4-49.3 L 4544-3) MCV (test code = 88.1 fL 81.7-95.6 787-2) MCH (test code = 29.6 pg 26.1-32.7 785-6) MCHC (test code = 33.6 g/dL 31.2-35 786-4) RDW-SD (test code = 42.6 fL 38.5-51.6 18513-7) RDW-CV (test code = 13.2 % 12.1-15.4 788-0) PLT (test code = See_Comment L [Automated 777-3) message] The sy stem which generated this result transmitted reference range : 150 - 328 10*3/ ?L. The reference r radha was not used to interpret this result as normal/abnormal . MPV (test code = 11.0 fL 9.8-13 70059-9) NRBC/100 WBC (test See_Comment [Automat ed code = 4521812003) message] The system which generated this result transmitted reference range : 0.0 - 10.0 /100 WBCs. The refer ence range was not u sed to interpret th is result as normal/abnormal . NRBC x10^3 (test code <0.01 See_Comment [Auto mated = 2567073064) message] The s ystem which generated this result transmitted reference range : 10*3/?L. The reference range was not used to interpret this result as normal/abnormal . GRAN MAT (NEUT) % 66.9 % (test code = 770-8) IMM GRAN % (test code 0.80 % = 8613472273) LYMPH % (test code = 16.8 % 736-9) MONO % (test code = 9.1 % 5905-5) EOS % (test code = 5.6 % 713-8) BASO % (test code = 0.8 % 706-2) GRAN MAT x10^3(ANC) 4.19 10*3/uL 1.99-6.95 (test code = 5235338089) IMM GRAN x10^3 (test 0.05 10*3/uL 0-0.06 code = 5239596856) LYMPH x10^3 (test code 1.05 10*3/uL 1.09-3.23 L = 731-0) MONO x10^3 (test code 0.57 10*3/uL 0.36-1.02 = 742-7) EOS x10^3 (test code = 0.35 10*3/uL 0.06-0.53 711-2) BASO x10^3 (test code 0.05 10*3/uL 0.01-0.09 = 704-7) Lab Interpretation Abnormal (test code = 51273-5) [facility] GLUCOSE (AUTOMATED)2019-04-15 20:35:00 Test Item Value Reference Range Interpretation Comments POCT GLU (test code = 1424340986) 109 mg/dL 70-110 Lab Interpretation (test code = Normal 39396-9) [facility] GLUCOSE (AUTOMATED)2019-04-15 16:41:00 Test Item Value Reference Range Interpretation Comments POCT GLU (test code = 5569709765) 279 mg/dL 70-110 H Lab Interpretation (test code = Abnormal 43236-9) [facility] GLUCOSE (AUTOMATED)2019-04-15 12:52:00 Test Item Value Reference Range Interpretation Comments POCT GLU (test code = 8048159800) 258 mg/dL 70-110 H Lab Interpretation (test code = Abnormal 41041-6) [facility] Metabolic Panel (NA, K, CL, CO2, GLUCOSE, BUN, CREATININE, CA)2019-04-15 11:47:00 Test Item Value Reference Range Interpretation Comments NA (test code = 135 mmol/L 135-145 3756900577) K (test code = 5.4 mmol/L 3.5-5 H 8569306929) CL (test code = 103 mmol/L 98-108 2864031992) CO2 TOTAL (test code = 11 mmol/L 23-31 L 4971829168) AGAP (test code = 2-16 H 6924886107) BUN (test code = 89 mg/dL 7-23 H 5548278414) GLUCOSE (test code = 309 mg/dL 70-110 H 4658118361) CREATININE (test code = 12.30 mg/dL 0.6-1.25 H 4839454161) CALCIUM (test code = 7.3 mg/dL 8.6-10.6 L 8607455954) eGFR Calculation mL/min/1.73m2 (Non-) (test code = 9853563082) eGFR Calculation mL/min/1.73m2 () (test code = 6329435019) DAVID (test code = DAVID) Association of Glomerular Filtration Rate (GFR) and Staging of Kidney Disease*+ + + +| GFR (mL/min/1.73 m2)?| With Kidney Damage?|?Without Kidney Damage+ --------+ --------+ +|?>90?|?S tage one?|? Normal?+ ---------+ ---------+ +|?60-89? |?Stage two?|? Decreased GFR? + --+ --+ ------+|?30-59?|?Stage three?|? Stage three? + --+ --+ ------+|?15-29?|?Stage four? |? Stage four?+ -------+ -------+ +|?<15 (or dialysis)?|?Stage five? |? Stage five?+ -------+ -------+ +*Each stage assumes the associated GFR level has been in effect for at least three months.?Stages 1 to 5, with or without kidney disease, indicate chronic kidney disease.Notes: Determination of stages one and two (with eGFR >59mL/min/1.73 m2) requires estimation of kidney damage for at least three months as defined by structural or functional abnormalities of the kidney, manifested by either:Pathological abnormalities or Markers of kidney damage (including abnormalities in the composition of the blood or urine or abnormalities in imaging tests). Lab Interpretation Abnormal (test code = 44212-4) [facility] (ALB, T.PRO, BILI T, BU/BC, ALT, AST, ALK PHOS)2019-04-15 11:47:00 Test Item Value Reference Range Interpretation Comments TOTAL BILI (test code = 1501000208) 0.3 mg/dL 0.1-1.1 BILI UNCON (test code = 3387653895) 0.0 mg/dL 0.1-1.1 L BILI CONJ (test code = 7335068534) 0.0 mg/dL 0-0.3 T PROTEIN (test code = 9124144046) 7.2 g/dL 6.3-8.2 ALBUMIN (test code = 4267660140) 4.5 g/dL 3.5-5 ALK PHOS (test code = 3090285385) 208 U/L 34-122 H ALT(SGPT) (test code = 2029836787) 45 U/L 9-51 AST(SGOT) (test code = 9147870388) 38 U/L 13-40 Lab Interpretation (test code = Abnormal 76256-5) [facility] WITH [id number] 11:34:00 Test Item Value Reference Range Interpretation Comments WBC (test code = See_Comment [Automated 6690-2) message] The sy stem which generated this result transmitted reference range : 4.20 - 10.70 10*3/?L. The reference range was not used to interpret this result as normal/abnormal . RBC (test code = See_Comment L [Automated 789-8) message] The sy stem which generated this result transmitted reference range : 4.26 - 5.52 10*6/?L. The reference range was not used to interpret this result as normal/abnormal . HGB (test code = 8.1 g/dL 12.2-16.4 L 718-7) HCT (test code = 23.8 % 38.4-49.3 L 4544-3) MCV (test code = 88.1 fL 81.7-95.6 787-2) MCH (test code = 30.0 pg 26.1-32.7 785-6) MCHC (test code = 34.0 g/dL 31.2-35 786-4) RDW-SD (test code = 44.0 fL 38.5-51.6 96578-5) RDW-CV (test code = 13.6 % 12.1-15.4 788-0) PLT (test code = See_Comment [Automated 777-3) message] The sy stem which generated this result transmitted reference range : 150 - 328 10*3/ ?L. The reference r radha was not used to interpret this result as normal/abnormal . MPV (test code = 10.1 fL 9.8-13 98789-9) NRBC/100 WBC (test See_Comment [Automat ed code = 8886654488) message] The system which generated this result transmitted reference range : 0.0 - 10.0 /100 WBCs. The refer ence range was not u sed to interpret th is result as normal/abnormal . NRBC x10^3 (test code <0.01 See_Comment [Auto mated = 9133919892) message] The s ystem which generated this result transmitted reference range : 10*3/?L. The reference range was not used to interpret this result as normal/abnormal . GRAN MAT (NEUT) % 64.6 % (test code = 770-8) IMM GRAN % (test code 0.20 % = 9345181326) LYMPH % (test code = 18.9 % 736-9) MONO % (test code = 10.2 % 5905-5) EOS % (test code = 5.3 % 713-8) BASO % (test code = 0.8 % 706-2) GRAN MAT x10^3(ANC) 3.43 10*3/uL 1.99-6.95 (test code = 7624698594) IMM GRAN x10^3 (test <0.03 0-0.06 code = 2226497616) LYMPH x10^3 (test code 1.00 10*3/uL 1.09-3.23 L = 731-0) MONO x10^3 (test code 0.54 10*3/uL 0.36-1.02 = 742-7) EOS x10^3 (test code = 0.28 10*3/uL 0.06-0.53 711-2) BASO x10^3 (test code 0.04 10*3/uL 0.01-0.09 = 704-7) Lab Interpretation Abnormal (test code = 06139-7) [facility] [id number] 11:00:00 Test Item Value Reference Range Interpretation Comments CULTURE (BEAKER) (test No growth in 5 days code = 1095) BLOOD [id number] 11:00:00 Test Item Value Reference Range Interpretation Comments CULTURE (BEAKER) (test No growth in 5 days code = 1095) ISLET CELL AB [id number] 09:29:00 Test Item Value Reference Range Interpretation Comments ISLET CELL AB See individual AUTOVERIFICATION (test panel test results. code = 2556) POCT-GLUCOSE [id number] 17:52:00 Test Item Value Reference Range Interpretation Comments POC-GLUCOSE METER 360 mg/dL 70-110 H TESTED AT [place] [address] ([facility]) (test code = HAL Mai [facility] 1538) [address] CLOSTRIDIUM DIFFICILE TOXIN [id number] 14:10:00 Test Item Value Reference Range Interpretation Comments CLOSTRIDIUM DIFFICILE TOXIN, PCR Not Detected Not Detected ([facility]) (test code = 1525) This qualitative real-time [...] of a positive result is not recommended.POCT-GLUCOSE [id number] 13:02:00 Test Item Value Reference Range Interpretation Comments POC-GLUCOSE METER 265 mg/dL 70-110 H TESTED AT [place] [address] ([facility]) (test code = HAL [place] [facility] 1538) [address] POCT-GLUCOSE [id number] 07:13:00 Test Item Value Reference Range Interpretation Comments POC-GLUCOSE METER 70 mg/dL 70-110 TESTED AT [place] [address] ([facility]) ([facility] = [facility] [address]38) VANCOMYCIN LEVEL, [id number] 06:54:00 Test Item Value Reference Range Interpretation Comments VANCOMYCIN RANDOM ([facility]) (test 15.2 ug/mL code = 523) Reference Range: No NormalsBASIC METABOLIC [id number] 06:41:00 Test Item Value Reference Range Interpretation Comments SODIUM ([facility]) 135 meq/L 136-145 L (test code = 381) POTASSIUM ([facility]) 3.8 meq/L 3.5-5.1 (test code = 379) [...] 697) EGFR (BEAKER) (test 16 mL/min/1.73 ESTIMA REYNA GFR IS code = 1092) sq m NOT ACCURATE CREATININE CLEARANCE IN PREDICTING GLOMERULAR FILTRATION RATE . ESTIMATED GFR I S NOT APPLICABLE FOR DIALYSIS PATIEN TS. POCT-GLUCOSE [id number] 06:40:00 Test Item Value Reference Range Interpretation Comments POC-GLUCOSE METER 44 mg/dL 70-110 L Notified Pau Carlson MD/TESTED AT (BEAKER) (test code = [facility] [address] [facility] 1538) [facility] [address] POCT-GLUCOSE [id number] 06:36:00 Test Item Value Reference Range Interpretation Comments POC-GLUCOSE METER 54 mg/dL 70-110 L Notified Pau Carlson MD/TESTED AT (BEAKER) (test code = [facility] [address] [facility] 1538) [place] [address] 0 BASIC METABOLIC [id number] 06:35:00 Test Item Value Reference Range Interpretation [...] 8.4-10.2 L (test code = 697) EGFR [facility] (test 16 mL/min/1.73 ESTIMA REYNA GFR IS code = 1092) sq m NOT ACCURATE CREATININE CLEARANCE IN PREDICTING GLOMERULAR FILTRATION RATE . ESTIMATED GFR I S NOT APPLICABLE FOR DIALYSIS PATIEN TS. POCT-GLUCOSE [id number] 21:14:00 Test Item Value Reference Range Interpretation Comments POC-GLUCOSE METER 396 mg/dL 70-110 H Notified R Manny DALTON/TESTED ([facility]) (test code = AT [address] 15[address]) [facility] [address] POCT-GLUCOSE [id number] 18:02:00 Test Item Value Reference Range Interpretation Comments POC-GLUCOSE METER 363 mg/dL 70-110 H Notified R Manny DALTON/TESTED ([facility]) (test code = AT [place] [address]) [facility] [address] 0 BLOOD [id number] 18:00:00 Test Item Value Reference Range Interpretation Comments CULTURE ([facility] (test No growth in 5 days code = 1095) BLOOD [id number] 18:00:00 Test Item Value Reference Range Interpretation Comments CULTURE (BEAKER) (test No growth in 5 days code = 1095) POCT-GLUCOSE [id number] 13:08:00 Test Item Value Reference Range Interpretation Comments POC-GLUCOSE METER 188 mg/dL 70-110 H TESTED AT [place] [address] ([facility]) (test code = HAL Mai [place] [address]) [address] POCT-GLUCOSE [id number] 11:42:00 Test Item Value Reference Range Interpretation Comments POC-GLUCOSE METER 194 mg/dL 70-110 H TESTED AT [place] [address] ([facility]) (test code = [place] [address]) [address] VANCOMYCIN LEVEL, [id number] 09:58:00 Test Item Value Reference Range Interpretation Comments VANCOMYCIN RANDOM ([facility]) (test 12.9 ug/mL code = 523) Reference Range: No NormalsTo be drawn BEFORE dialysis in the dialysis unit. Thank youPOCT-GLUCOSE [id number] 08:52:00 Test Item Value Reference Range Interpretation Comments POC-GLUCOSE METER 272 mg/dL 70-110 H TESTED AT [place] [address] ([facility]) (test code = [facility] 1538) [address] BASIC METABOLIC [id number] 05:09:00 Test Item Value Reference Range Interpretation [...] NOT APPLICABLE FOR DIALYSIS PATIEN TS. POCT-GLUCOSE [id number] 21:32:00 Test Item Value Reference Range Interpretation Comments POC-GLUCOSE METER 388 mg/dL 70-110 H TESTED AT [place] [address] ([facility]) (test code = [facility] 1538) [address] POCT-GLUCOSE [id number] 18:31:00 Test Item Value Reference Range Interpretation Comments POC-GLUCOSE METER 247 mg/dL 70-110 H TESTED AT [place] [address] ([facility]) (test code = [facility] 1538) [address] POCT-GLUCOSE [id number] 10:58:00 Test Item Value Reference Range Interpretation Comments POC-GLUCOSE METER 213 mg/dL 70-110 H TESTED AT [place] [address] ([facility]) (test code = [facility] 1538) [address] CBC W/PLT COUNT & AUTO [id number] 07:02:00 Test Item Value Reference Range Interpretation [...] 0.00-0.20 (test code = 417) 0.00BASI METABOLIC [id number] 06:25:00 Test Item Value Reference Range Interpretation [...] 697) EGFR (BEAKER) (test 12 mL/min/1.73 ESTIMA REYNA GFR IS code = 1092) sq m NOT ACCURATE CREATININE CLEARANCE IN PREDICTING GLOMERULAR FILTRATION RATE . ESTIMATED GFR I S NOT APPLICABLE FOR DIALYSIS PATIEN TS. [id number] 06:24:00 Test Item Value Reference Range Interpretation Comments PHOSPHORUS (BEAKER) (test code = 3.8 mg/dL 2.3-4.7 604) [id number] 06:24:00 Test Item Value Reference Range Interpretation Comments MAGNESIUM (BEAKER) (test code = 2.2 mg/dL 1.6-2.6 627) POCT-GLUCOSE [id number] 21:55:00 Test Item Value Reference Range Interpretation Comments POC-GLUCOSE METER 270 mg/dL 70-110 H TESTED AT [place] [address] ([facility] (test code = [place] 1538) [address] POCT-GLUCOSE [id number] 18:12:00 Test Item Value Reference Range Interpretation Comments POC-GLUCOSE METER 124 mg/dL 70-110 H TESTED AT [place] [address] (BEAKER) (test code = HAL [place] 1538) [address] POCT-GLUCOSE [id number] 16:27:00 Test Item Value Reference Range Interpretation Comments POC-GLUCOSE METER 135 mg/dL 70-110 H TESTED AT [facility] 6720 (BEAKER) (test code = HAL [place] 1538) [address] POCT-GLUCOSE [id number] 14:10:00 Test Item Value Reference Range Interpretation Comments POC-GLUCOSE METER 219 mg/dL 70-110 H TESTED AT [place] [address] ([facility] (test code = [facility] Pau [facility] 1538) [address] POCT-GLUCOSE [id number] 12:01:00 Test Item Value Reference Range Interpretation Comments POC-GLUCOSE METER 162 mg/dL 70-110 H TESTED AT [place] [address] ([facility] (test code = [facility] Pau [facility] 1538) [address] POCT-GLUCOSE [id number] 09:51:00 Test Item Value Reference Range Interpretation Comments POC-GLUCOSE METER 220 mg/dL 70-110 H TESTED AT [place] [address] ([facility] (test code = [facility] 1538) [address] POCT-GLUCOSE [id number] 07:48:00 Test Item Value Reference Range Interpretation Comments POC-GLUCOSE METER 151 mg/dL 70-110 H TESTED AT [place] [address] ([facility]) (test code = [facility] 1538) [address] BASIC METABOLIC [id number] 07:36:00 Test Item Value Reference Range Interpretation [...] NOT APPLICABLE FOR DIALYSIS PATIEN TS. POCT-GLUCOSE [id number] 07:06:00 Test Item Value Reference Range Interpretation Comments POC-GLUCOSE METER 98 mg/dL 70-110 TESTED AT [place] [address] ([facility] (test code = [facility] [address] 1538) POCT-GLUCOSE [id number] 06:27:00 Test Item Value Reference Range Interpretation Comments POC-GLUCOSE METER 63 mg/dL 70-110 L TESTED AT [place] [address] ([facility]) (test code = [facility] [address] 1538) VANCOMYCIN LEVEL, [id number] 04:31:00 Test Item Value Reference Range Interpretation Comments VANCOMYCIN RANDOM (BEAKER) (test 20.8 ug/mL code = 523) Reference Range: No [id number] 04:20:00 Test Item Value Reference Range Interpretation Comments PHOSPHORUS (BEAKER) (test code = 5.4 mg/dL 2.3-4.7 H 604) [id number] 04:20:00 Test Item Value Reference Range Interpretation Comments MAGNESIUM (BEAKER) (test code = 2.1 mg/dL 1.6-2.6 627) POCT-GLUCOSE [id number] 04:16:00 Test Item Value Reference Range Interpretation Comments POC-GLUCOSE METER 99 mg/dL 70-110 TESTED AT [place] [address] ([facility]) (test code = [facility] [address] 1538) CBC W/PLT COUNT & AUTO [id number] 04:07:00 Test Item Value Reference Range Interpretation Comments WHITE BLOOD CELL COUNT (BEAKER) 7.4 K/ L 4.0-10.0 (test code = 775) RED BLOOD CELL COUNT ([facility]) 3.07 M/ L 4.20-5.80 L (test code [...] L 0.00-0.20 (test code = 417) 0.00POCT-GLUCOSE [id number] 02:10:00 Test Item Value Reference Range Interpretation Comments POC-GLUCOSE METER 132 mg/dL 70-110 H TESTED AT [facility] 6720 (BEAKER) (test code = [place] 1538) 7[address] SPUTUM CULTURE + GRAM [id number] 00:32:00 Test Item Value Reference Range Interpretation Comments CULTURE (BEAKER) 4+ Normal respiratory (test code = 1095) jenelle present GRAM STAIN RESULT 3+ White blood cells (BEAKER) (test code = seen 1123) GRAM STAIN RESULT 0-5 epithelial cells (BEAKER) (test code = 19625) GRAM STAIN RESULT 2+ gram negative rods (BEAKER) (test code = 97406) GRAM STAIN RESULT 3+ gram positive rods (BEAKER) (test code = 319841) GRAM STAIN RESULT 2+ gram positive cocci (BEAKER) (test code = in pairs and clusters 351502) POCT-GLUCOSE [id number] 00:15:00 Test Item Value Reference Range Interpretation Comments POC-GLUCOSE METER 193 mg/dL 70-110 H TESTED AT [place] [id number] (BEAKER) (test code = HAL Mai [facility] 1538) 75368 POCT-GLUCOSE [id number] 22:22:00 Test Item Value Reference Range Interpretation Comments POC-GLUCOSE METER 170 mg/dL 70-110 H TESTED AT [place] [address] (BEAKER) (test code = [facility] [place] [facility] 1538) 87386 POCT-GLUCOSE [id number] 20:17:00 Test Item Value Reference Range Interpretation Comments POC-GLUCOSE METER 179 mg/dL 70-110 H TESTED AT [place] [address] (BEAKER) (test code = [facility] 1538) 525[address] BASIC METABOLIC [id number] 19:00:00 Test Item Value Reference Range Interpretation [...] NOT APPLICABLE FOR DIALYSIS PATIEN TS. POCT-GLUCOSE [id number] 18:27:00 Test Item Value Reference Range Interpretation Comments POC-GLUCOSE METER 150 mg/dL 70-110 H TESTED AT [place] [id number] (BEAKER) (test code = [facility] [place] [facility] 1538) 21971 POCT-GLUCOSE [id number] 15:58:00 Test Item Value Reference Range Interpretation Comments POC-GLUCOSE METER 219 mg/dL 70-110 H TESTED AT [place] [address] ([facility]) (test code = [place] 1538) 36683 POCT-GLUCOSE [id number] 14:26:00 Test Item Value Reference Range Interpretation Comments POC-GLUCOSE METER 212 mg/dL 70-110 H TESTED AT [place] [address] ([facility]) (test code = HAL [place] 1538) 799[address] POCT-GLUCOSE [id number] 12:23:00 Test Item Value Reference Range Interpretation Comments POC-GLUCOSE METER 261 mg/dL 70-110 H TESTED AT [place] [address] ([facility]) (test code = [place] 1538) 0[address] POCT-GLUCOSE [id number] 10:19:00 Test Item Value Reference Range Interpretation Comments POC-GLUCOSE METER 323 mg/dL 70-110 H TESTED AT [place] [address] ([facility]) (test code = [place] 1538) 68005 POCT-GLUCOSE [id number] 08:24:00 Test Item Value Reference Range Interpretation Comments POC-GLUCOSE METER 235 mg/dL 70-110 H TESTED AT [place] [address] ([facility]) (test code = [place] 1538) 19973 POCT-GLUCOSE [id number] 07:10:00 Test Item Value Reference Range Interpretation Comments POC-GLUCOSE METER 244 mg/dL 70-110 H TESTED AT [place] [address] ([facility]) (test code = [place] 1538) 9[address] POCT-GLUCOSE [id number] 06:15:00 Test Item Value Reference Range Interpretation Comments POC-GLUCOSE METER 249 mg/dL 70-110 H TESTED AT [place] [address] ([facility]) (test code = [place] 1538) 75362 CBC W/PLT COUNT & AUTO [id number] 06:05:00 Test Item Value Reference Range Interpretation Comments WHITE BLOOD CELL COUNT ([facility]) 11.1 K/ L 4.0-10.0 H (test code = 775) RED BLOOD CELL COUNT ([facility]) 3.12 M/ L 4.20-5.80 L (test code = 761) HEMOGLOBIN ([facility]) (test code = 10.0 GM/DL 13.0-16.8 L [...] 0.00-0.20 (test code = 417) 0.00BASI METABOLIC [id number] 05:11:00 Test Item Value Reference Range Interpretation [...] S NOT APPLICABLE FOR DIALYSIS PATIEN TS. [id number] 05:05:00 Test Item Value Reference Range Interpretation Comments MAGNESIUM (BEAKER) 2.3 mg/dL 1.6-2.6 Specimen slightly (test code = 627) hemolyzed [id number] 05:05:00 Test Item Value Reference Range Interpretation Comments PHOSPHORUS (BEAKER) 5.9 mg/dL 2.3-4.7 H Specimen slightly (test code = 604) hemolyzed POCT-GLUCOSE [id number] 04:02:00 Test Item Value Reference Range Interpretation Comments POC-GLUCOSE METER 187 mg/dL 70-110 H TESTED AT [place] [address] ([facility]) (test code = [place] 1538) 95287 POCT-GLUCOSE [id number] 02:22:00 Test Item Value Reference Range Interpretation Comments POC-GLUCOSE METER 163 mg/dL 70-110 H TESTED AT [place] [address] ([facility] (test code = [place] 1538) 25661 POCT-GLUCOSE [id number] 00:54:00 Test Item Value Reference Range Interpretation Comments POC-GLUCOSE METER 239 mg/dL 70-110 H TESTED AT [place] [address] ([facility]) (test code = [place] 1538) 47408 POCT-GLUCOSE [id number] 00:11:00 Test Item Value Reference Range Interpretation Comments POC-GLUCOSE METER 29 mg/dL 70-110 LL TESTED AT [place] [address] ([facility]) (test code = [facility] [address] 1538) POCT-GLUCOSE [id number] 21:35:00 Test Item Value Reference Range Interpretation Comments POC-GLUCOSE METER 100 mg/dL 70-110 TESTED AT [place] [id number] ([facility]) (test code = [facility] 1538) 94281 POCT-GLUCOSE [id number] 20:24:00 Test Item Value Reference Range Interpretation Comments POC-GLUCOSE METER 57 mg/dL 70-110 L TESTED AT [place] [id number] ([facility]) (test code = [facility] [address] 1538) BASIC METABOLIC [id number] 18:11:00 Test Item Value Reference Range Interpretation [...] 8.4-10.2 L (test code = 697) EGFR ([facility] (test 10 mL/min/1.73 ESTIMA REYNA GFR IS code = 1092) sq m NOT ACCURATE CREATININE CLEARANCE IN PREDICTING GLOMERULAR FILTRATION RATE . ESTIMATED GFR I S NOT APPLICABLE FOR DIALYSIS PATIEN TS. POCT-GLUCOSE [id number] 17:33:00 Test Item Value Reference Range Interpretation Comments POC-GLUCOSE METER 87 mg/dL 70-110 TESTED AT [place] [id number] ([facility]) (test code = [facility] [address] 1538) POCT-GLUCOSE [id number] 17:33:00 Test Item Value Reference Range Interpretation Comments POC-GLUCOSE METER 54 mg/dL 70-110 L Notified R Manny DALTON/TESTED AT ([facility]) (test code = [address] 1538) [facility] 7703 0 POCT-GLUCOSE [id number] 14:05:00 Test Item Value Reference Range Interpretation Comments POC-GLUCOSE METER 159 mg/dL 70-110 H TESTED AT [facility] 6720 (BEAKER) (test code = HAL [place] [facility] 1538) 85139 POCT-GLUCOSE [id number] 12:26:00 Test Item Value Reference Range Interpretation Comments POC-GLUCOSE METER 247 mg/dL 70-110 H TESTED AT [facility] 6720 (BEAKER) (test code = HAL [place] [facility] 1538) 89604 BASIC METABOLIC [id number] 11:20:00 Test Item Value Reference Range Interpretation [...] 697) EGFR (BEAKER) (test 11 mL/min/1.73 ESTIMA REYNA GFR IS code = 1092) sq m NOT ACCURATE CREATININE CLEARANCE IN PREDICTING GLOMERULAR FILTRATION RATE . ESTIMATED GFR I S NOT APPLICABLE FOR DIALYSIS PATIEN TS. [id number] 11:14:00 Test Item Value Reference Range Interpretation Comments MAGNESIUM (BEAKER) (test code = 2.2 mg/dL 1.6-2.6 627) CBC W/PLT COUNT & AUTO [id number] 11:14:00 Test Item Value Reference Range Interpretation [...] L 0.00-0.20 (test code = 417) 0.00POCT-GLUCOSE [id number] 10:17:00 Test Item Value Reference Range Interpretation Comments POC-GLUCOSE METER 172 mg/dL 70-110 H TESTED AT [facility] 6720 (BEAKER) (test code = [place] 1538) 0[address] POCT-GLUCOSE [id number] 10:17:00 Test Item Value Reference Range Interpretation Comments POC-GLUCOSE METER 167 mg/dL 70-110 H TESTED AT [facility] 6720 ([facility]) (test code = [place] 1538) 41499 POCT-GLUCOSE [id number] 10:17:00 Test Item Value Reference Range Interpretation Comments POC-GLUCOSE METER 176 mg/dL 70-110 H TESTED AT [facility] 6720 ([facility]) (test code = [place] 1538) 31[address] [id number] 08:17:00 Test Item Value Reference Range Interpretation [...] L (test code = 2590) VANCOMYCIN LEVEL, [id number] 06:52:00 Test Item Value Reference Range Interpretation Comments VANCOMYCIN RANDOM (BEAKER) (test 12.8 ug/mL code = 523) Reference Range: No NormalsHold further dosing for vancomycin level > 20, alert MD and RphPOCT-GLUCOSE [id number] 06:16:00 Test Item Value Reference Range Interpretation Comments POC-GLUCOSE METER 179 mg/dL 70-110 H TESTED AT [facility] 6720 ([facility] (test code = [facility] [place] [facility] 1538) 83259 POCT-GLUCOSE [id number] 05:08:00 Test Item Value Reference Range Interpretation Comments POC-GLUCOSE METER 185 mg/dL 70-110 H TESTED AT [facility] 6720 ([facility]) (test code = [facility] 1538) 41119 PTH, [id number] 05:01:00 Test Item Value Reference Range Interpretation Comments PARATHYROID HORMONE INTACT 114.5 pg/mL 8.5-72.5 H (BEAKER) (test code = 577) Effective 08/05/2014: Reference Range ChangeNew: 8.5-72.5 Previous: 15.0-90.0 BASIC METABOLIC [id number] 04:53:00 Test Item Value Reference Range Interpretation [...] 697) EGFR (BEAKER) (test 13 mL/min/1.73 ESTIMA REYNA GFR IS code = 1092) sq m NOT ACCURATE CREATININE CLEARANCE IN PREDICTING GLOMERULAR FILTRATION RATE . ESTIMATED GFR I S NOT APPLICABLE FOR DIALYSIS PATIEN TS. [id number] 04:52:00 Test Item Value Reference Range Interpretation Comments PHOSPHORUS (BEAKER) (test code = 3.4 mg/dL 2.3-4.7 604) POCT-GLUCOSE [id number] 04:18:00 Test Item Value Reference Range Interpretation Comments POC-GLUCOSE METER 134 mg/dL 70-110 H TESTED AT [facility] 6720 ([facility] (test code = [facility] 1538) 99602 POCT-GLUCOSE [id number] 03:10:00 Test Item Value Reference Range Interpretation Comments POC-GLUCOSE METER 161 mg/dL 70-110 H TESTED AT [facility] 6720 ([facility]) (test code = [facility] 1538) 61304 POCT-GLUCOSE [id number] 02:13:00 Test Item Value Reference Range Interpretation Comments POC-GLUCOSE METER 173 mg/dL 70-110 H TESTED AT [place] [address] ([facility] (test code = HAL [place] [facility] 1538) 12721 BASIC METABOLIC [id number] 01:40:00 Test Item Value Reference Range Interpretation [...] 697) EGFR (BEAKER) (test 16 mL/min/1.73 ESTIMA REYNA GFR IS code = 1092) sq m NOT ACCURATE CREATININE CLEARANCE IN PREDICTING GLOMERULAR FILTRATION RATE . ESTIMATED GFR I S NOT APPLICABLE FOR DIALYSIS PATIEN TS. POCT-GLUCOSE [id number] 01:10:00 Test Item Value Reference Range Interpretation Comments POC-GLUCOSE METER 114 mg/dL 70-110 H TESTED AT [place] [address] ([facility] (test code = [facility] [place] [facility] 1538) 56227 POCT-GLUCOSE [id number] 00:44:00 Test Item Value Reference Range Interpretation Comments POC-GLUCOSE METER 152 mg/dL 70-110 H TESTED AT [place] [address] (BEAKER) (test code = [facility] 1538) 33156 POCT-GLUCOSE [id number] 23:07:00 Test Item Value Reference Range Interpretation Comments POC-GLUCOSE METER 162 mg/dL 70-110 H TESTED AT [place] [id number] (BEAKER) (test code = [facility] 1538) 62251 POCT-GLUCOSE [id number] 22:12:00 Test Item Value Reference Range Interpretation Comments POC-GLUCOSE METER 115 mg/dL 70-110 H TESTED AT [facility] 6720 (BEAKER) (test code = [facility] 1538) 24647 POCT-GLUCOSE [id number] 21:20:00 Test Item Value Reference Range Interpretation Comments POC-GLUCOSE METER 88 mg/dL 70-110 TESTED AT [facility] 6720 (BEAKER) (test code = [facility] [address] 1538) POCT-GLUCOSE [id number] 20:10:00 Test Item Value Reference Range Interpretation Comments POC-GLUCOSE METER 109 mg/dL 70-110 TESTED AT [place] [address] (BEAKER) (test code = [facility] 1538) 41015 HEPATITIS B SURFACE [id number] 19:53:00 Test Item Value Reference Range Interpretation Comments HEPATITIS B SURFACE ANTIGEN (2) Nonreactive Nonreactive (BEAKER) (test code = 2585) BASIC METABOLIC [id number] 19:35:00 Test Item Value Reference Range Interpretation [...] NOT APPLICABLE FOR DIALYSIS PATIEN TS. POCT-GLUCOSE [id number] 19:14:00 Test Item Value Reference Range Interpretation Comments POC-GLUCOSE METER 179 mg/dL 70-110 H TESTED AT [facility] 6720 (BEAKER) (test code = [facility] 1538) 06671 POCT-GLUCOSE [id number] 17:57:00 Test Item Value Reference Range Interpretation Comments POC-GLUCOSE METER 173 mg/dL 70-110 H TESTED AT [place] [address] ([facility] (test code = HAL Mai [facility] 1538) 19791 BASIC METABOLIC [id number] 16:42:00 Test Item Value Reference Range Interpretation [...] NOT APPLICABLE FOR DIALYSIS PATIEN TS. POCT-GLUCOSE [id number] 15:59:00 Test Item Value Reference Range Interpretation Comments POC-GLUCOSE METER 289 mg/dL 70-110 H TESTED AT [place] [address] ([facility] (test code = HAL Mai [facility] 1538) 55806 POCT-GLUCOSE [id number] 15:23:00 Test Item Value Reference Range Interpretation Comments POC-GLUCOSE METER 296 mg/dL 70-110 H TESTED AT [place] [address] ([facility]) (test code = [facility] [place] [facility] 1538) 74868 POCT-GLUCOSE [id number] 15:23:00 Test Item Value Reference Range Interpretation Comments POC-GLUCOSE METER 342 mg/dL 70-110 H TESTED AT [place] [address] ([facility] (test code = [facility] [place] [facility] 1538) 44342 BASIC METABOLIC [id number] 12:33:00 Test Item Value Reference Range Interpretation [...] NOT APPLICABLE FOR DIALYSIS PATIEN TS. POCT-GLUCOSE [id number] 12:23:00 Test Item Value Reference Range Interpretation Comments POC-GLUCOSE METER 231 mg/dL 70-110 H TESTED AT [facility] 67 ([facility] ([facility] = [facility] [place] 1538) [address]697 HEMOGLOBIN [id number] 11:38:00 Test Item Value Reference Range Interpretation Comments HEMOGLOBIN A1C (BEAKER) (test code = 9.9 % 4.3-6.1 H 368) POCT-GLUCOSE [id number] 11:09:00 Test Item Value Reference Range Interpretation Comments POC-GLUCOSE METER 212 mg/dL 70-110 H TESTED AT [facility] 6720 (BEAKER) (test code = [facility] [place] 1538) 313[address] BASIC METABOLIC [id number] 10:52:00 Test Item Value Reference Range Interpretation [...] S NOT APPLICABLE FOR DIALYSIS PATIEN TS. [id number] 10:31:00 Test Item Value Reference Range Interpretation Comments MAGNESIUM (BEAKER) (test code = 2.4 mg/dL 1.6-2.6 627) POCT-GLUCOSE [id number] 10:17:00 Test Item Value Reference Range Interpretation Comments POC-GLUCOSE METER 202 mg/dL 70-110 H TESTED AT [facility] 6720 (BEAKER) (test code = HAL Mai [facility] 1538) 26899 TROPONIN [id number] 10:16:00 Test Item Value Reference Range Interpretation [...] acute neurological disease, and persistent tachyarrhythmia.BLOOD GAS, [id number] 09:27:00 Test Item Value Reference Range Interpretation Comments PH VENOUS (BEAKER) (test code = 7.30 7.32-7.42 L 701) PCO2 VENOUS (BEAKER) (test code 14 mmHg 41-51 LL = 755) PO2 VENOUS (BEAKER) (test code = 72 mmHg 25-40 H 702) O2 SATURATION VENOUS ([facility]) 93.6 % 40.0-70.0 H (test code = 703) HCO3 VENOUS ([facility]) (test code 7 mmol/L 21-29 LL = 705) BASE EXCESS VENOUS (AKER) -18.4 mmol/L -2.0-3.0 L (test code = 704) PATIENT TEMPERATURE ([facility]) 37.0 C (test code = 1818) FIO2 ([facility]) (test code = 1819) 21.0 % POCT-GLUCOSE [id number] 09:19:00 Test Item Value Reference Range Interpretation Comments POC-GLUCOSE METER 179 mg/dL 70-110 H TESTED AT [place] [address] ([facility]) (test code = [place] 1538) 97787 LACTIC ACID, VENOUS, WHOLE [id number] 09:13:00 Test Item Value Reference Range Interpretation Comments LACTATE BLOOD VENOUS (2) ([facility]) 1.5 mmol/L 0.5-2.2 (test code = 2872) Effective 01/20/2016: Units/Reference Range ChangeNew: 0.5-2.2 mmol/L Previous: 5-20 mg/dLKETONE, [id number] 08:51:00 Test Item Value Reference Range Interpretation Comments KETONES, BLOOD ([facility]) (test code 0.0 mmol/L <0.4 = 1103) POCT-GLUCOSE [id number] 08:08:00 Test Item Value Reference Range Interpretation Comments POC-GLUCOSE METER 211 mg/dL 70-110 H TESTED AT [place] [address] ([facility]) (test code = HAL Mai [facility] 1538) 35612 POCT-GLUCOSE [id number] 07:30:00 Test Item Value Reference Range Interpretation Comments POC-GLUCOSE METER 230 mg/dL 70-110 H TESTED AT [place] [address] ([facility]) (test code = HAL [place] [facility] 1538) 89892 POCT-GLUCOSE [id number] 06:05:00 Test Item Value Reference Range Interpretation Comments POC-GLUCOSE METER 349 mg/dL 70-110 H Notified R Manny DALTON/TESTED ([facility]) (test code = [place] [address] [facility] [address] 0 [id number] 05:46:00 Test Item Value Reference Range Interpretation Comments GLUCOSE RANDOM (BEAKER) (test code 472 mg/dL 70-105 HH = 652) Effective 08/05/2014: Reference Range Change-Adult onlyNew: 70-105 Previous: 70-110If last glucose was less than 500, may do bedside glucose instead of serum glucose.[id number] 05:31:00 Test Item Value Reference Range Interpretation Comments POTASSIUM (BEAKER) (test code = 4.8 meq/L 3.5-5.1 379) If last glucose was less than 500, may do bedside glucose instead of serum glucose.KETONE, [id number] 05:16:00 Test Item Value Reference Range Interpretation Comments KETONES, BLOOD (BEAKER) (test code 0.0 mmol/L <0.4 = 1103) POCT-GLUCOSE [id number] 05:00:00 Test Item Value Reference Range Interpretation Comments POC-GLUCOSE METER 456 mg/dL 70-110 HH TESTED AT [place] [address] ([facility] (test code = HAL Mai [facility] 1538) 83225 POCT-GLUCOSE [id number] 04:08:00 Test Item Value Reference Range Interpretation Comments POC-GLUCOSE METER > mg/dL 70-110 HH OUTSIDE ME ASURING (BEAKER) (test code RANGETES REYNA AT [place] [address] = 1538) [facility] [address] [id number] 03:41:00 Test Item Value Reference Range Interpretation Comments GLUCOSE RANDOM (BEAKER) (test code 705 mg/dL 70-105 HH = 652) Effective 08/05/2014: Reference Range Change-Adult onlyNew: 70-105 Previous: 70-110If last glucose was less than 500, may do bedside glucose instead of serum glucose.URINALYSIS W/ REFLEX URINE [id number] 03:02:00 Test Item Value Reference Range Interpretation [...] code = 1584) SOURCE(BEAKER) (test code = 2795) [id number] 02:51:00 Test Item Value Reference Range Interpretation Comments GLUCOSE RANDOM (BEAKER) (test code 684 mg/dL 70-105 HH = 652) Effective 08/05/2014: Reference Range Change-Adult onlyNew: 70-105 Previous: 70-110If last glucose was less than 500, may do bedside glucose instead of serum glucose.COMPREHENSIVE METABOLIC [id number] 02:51:00 Test Item Value Reference Range Interpretation [...] may do bedside glucose instead of serum glucose.[id number] 02:50:00 Test Item Value Reference Range Interpretation Comments THYROID STIMULATING HORMONE 2.15 uIU/mL 0.35-4.94 (BEAKER) (test code = 772) [id number] 02:45:00 Test Item Value Reference Range Interpretation Comments MAGNESIUM (BEAKER) (test code = 2.0 mg/dL 1.6-2.6 627) [id number] 02:45:00 Test Item Value Reference Range Interpretation Comments PHOSPHORUS (BEAKER) (test code = 4.4 mg/dL 2.3-4.7 604) CREATINE KINASE (CK), TOTAL AND [id number] 02:41:00 Test Item Value Reference Range Interpretation Comments CREATINE KINASE TOTAL (BEAKER) 140 U/L 29-200 (test code = 380) CREATINE KINASE-MB (BEAKER) (test 7.2 ng/mL 0.0-6.6 H code = 750) CREATINE KINASE-MB INDEX (BEAKER) 5.1 % (test code = 395) Effective 08/05/2014: CK-MB Reference Range ChangeNew: 0.0-6.6 Previous: 0.0-4.9CK-MB Reference Range:<6.7 Normal6.7-10.0 Borderline>10.0 AbnormalTROPONIN [id number] 02:36:00 Test Item Value Reference Range Interpretation [...] renalfailure, acidosis, acute neurological disease, and persistent tachyarrhythmia.[id number] 02:31:00 Test Item Value Reference Range Interpretation Comments POTASSIUM (BEAKER) (test code = 4.8 meq/L 3.5-5.1 379) If last glucose was less than 500, may do bedside glucose instead of serum glucose.CBC W/PLT COUNT & AUTO [id number] 02:31:00 Test Item Value Reference Range Interpretation [...] 0.00-0.20 (test code = 417) 0.000.640.000.580.000.000.000.00BLOOD GAS, [id number] 02:26:00 Test Item Value Reference Range Interpretation [...] 1819) 30.0 % LACTIC ACID, ARTERIAL, WHOLE [id number] 02:25:00 Test Item Value Reference Range Interpretation Comments LACTATE BLOOD ARTERIAL (2) 4.9 mmol/L 0.5-2.2 H (ANTONIO) (test code = 2874) Effective 01/20/2016: Units/Reference Range ChangeNew: 0.5-2.2 mmol/L Previous: 5-20 mg/dLPOCT-GLUCOSE [id number] 02:18:00 Test Item Value Reference Range Interpretation Comments POC-GLUCOSE METER 493 mg/dL 70-110 HH TESTED AT [facility] 6720 ([facility]) (test code = [place] 1538) [address]83 [id number] 02:17:00 Test Item Value Reference Range Interpretation Comments PARTIAL THROMBOPLASTIN TIME 25.3 seconds 22.5-36.0 ([facility]) (test code = 760) PROTHROMBIN TIME/[id number] 02:16:00 Test Item Value Reference Range Interpretation Comments PROTIME ([facility]) (test code = 13.2 seconds 11.7-14.7 759) INR ([facility]) (test code = 370) 1.0 <=5.9 RECOMMENDED COUMADIN/WARFARIN INR THERAPY RANGESSTANDARD DOSE: 2.0 - 3.0 Includes: PROPHYLAXIS forvenous thrombosis, systemic embolization; TREATMENT for venous thrombosis and/or pulmonary embolus.HIGH RISK: Target INR is 2.5-3.5 for patients with mechanical heart valves."
--- NOTE | 2021-11-11 10:46 | RAD REPORT ---
EXAM DESCRIPTION: RAD - Chest Single View - 11/11/2021 10:38 am CLINICAL HISTORY: syncope COMPARISON: October 24, 2021 TECHNIQUE: AP portable chest image was obtained 11/11/2021 10:38 am . FINDINGS: Lung volumes are very low. Left-sided double-lumen dialysis catheter has been placed since the prior examination. Moderately large bilateral pleural effusions are present. There is atelectasi s at each base. Lung base infiltrate could be masked. Cardiac silhouette is enlarged. No pneumothorax . IMPRESSION: Limited portable study showing CHF/volume overload pattern. Lung base infiltrates could be masked by the fluid and atelectasis.
[2021-11-11 11:55] LABS: Protime INR 0.97
[2021-11-11 11:56] LABS: Absolute Lymphocytes (CBC) 0.7 K/uL (0.7-4.9); Hematocrit 28.8 % (39.6-49.0); Lymphocytes % 6.1 % (15.3-44.8); MPV 8.2 fL (7.6-11.3); RBC Red Blood Cell Count 3.01 M/uL (4.33-5.43)
[2021-11-11 12:20] LABS: Blood Morphology Comment NOT SEEN (NOT SEEN); Platelet Estimate DECR
[2021-11-11 12:23] LABS: Albumin 2.7 g/dL (3.4-5.0); Bilirubin Direct 0.2 mg/dL (0-0.2); Bilirubin Total 0.4 mg/dL (0.2-1.0); Magnesium 2.1 mg/dL (1.8-2.4); Potassium 4.9 mmol/L (3.5-5.1); Protein, Total 5.8 g/dL (6.4-8.2); Troponin High Sensitivity 16.4 pg/mL (<58.9)
--- NOTE | 2021-11-11 12:44 | ER ---
Nurse's Notes [facility] Name: Orlando Culp Age: 46 yrs Sex: Male : 1975 Arrival Date: 11/11/2021 Time: 09:45 Bed 26 Private MD: Diagnosis: Weakness;Syncope Near Presentation: 11/11 09:48 Chief complaint: EMS states: weakness, and pain all over onset this morning on his way eo2 to dialysis, no LOC, no fall, no trauma. Coronavirus screen: Vaccine status: Patient reports receiving the 2nd dose of the covid vaccine. Client denies travel out of the [place] in the last 14 days. Ebola Screen: Patient negative for fever greater than or equal to 101.5 degrees Fahrenheit, and additional compatible Ebola Virus Disease symptoms Patient denies exposure to infectious person. Patient denies travel to an Ebola-affected area in the 21 days before illness onset. Initial Sepsis Screen: Does the patient meet any 2 criteria? No. Patient's initial sepsis screen is negative. Does the patient have a suspected source of infection? No. Patient's initial sepsis screen is negative. Risk Assessment: Do you want to hurt yourself or someone else? Patient reports no desire to harm self or others. Onset of symptoms is unknown. 09:48 Method Of Arrival: EMS: [facility] eo2 09:48 Acuity: DEMARIO 2 eo2 Triage Assessment: 10:02 General: Appears in no apparent distress. Behavior is calm, cooperative. Pain: eo2 Complains of pain in generalized pain. Historical: - Allergies: 10:02 PENICILLINS; eo2 10:02 Phenergan; eo2 - PMHx: 10:02 Diabetes - IDDM; dialysis (port in left upper arm); 11/11/21, not working anymore per eo2 pt; ESRD; GERD; Hypertension; dialysis port right upper arm ( 11/11/21 placed a few weeks per pt ); - Immunization history:: Adult Immunizations up to date. - Social history:: Smoking status: Patient denies any tobacco usage or history of. Screenin:09 Abuse screen: Denies threats or abuse. Denies injuries from another. Nutritional eo2 screening: No deficits noted. Tuberculosis screening: No symptoms or risk factors identified. Fall Risk Fall in past 12 months (25 points). Secondary diagnosis (15 points) impaired mobility, IV access (20 points). Ambulatory Aid- None/Bed Rest/Nurse Assist (0 pts). Gait- Impaired (20 pts.). Mental Status- Oriented to own ability (0 pts). Assessment: 10:09 General: Appears in no apparent distress. Behavior is calm, cooperative. Pain: eo2 Complains of pain in generalized pain. Neuro: Level of Consciousness is awake, alert, obeys commands, lethargic, Oriented to person, place. Cardiovascular: Reports chest pain, shortness of breath, Heart tones S1 S2. Respiratory: Reports shortness of breath at rest cough that is Airway is patent Trachea midline Respiratory effort is even, unlabored, Respiratory pattern is regular, symmetrical, Breath sounds are diminished bilaterally. GI: Abdomen is flat, Bowel sounds present X 4 quads. Musculoskeletal: Reports weakness in generalized weakness. 10:47 Cardiovascular:. Derm:. Musculoskeletal: Swelling present in face and right arm. eo2 11:50 Reassessment: very difficult to obtain IV access, multiple failed attempts by 3 RNs and eo2 tech. 14:04 Reassessment: pt requesting pain medication before discharge, received verbal order for eo2 Tramadol 50mg PO once from Randall FLETCHER. order placed. Vital Signs: 09:48 BP 130 / 21; Pulse 66; Resp 17; Temp 97.5; Pulse Ox 98% ; Weight 58.97 kg; Height 5 ft. eo2 8 in. (172.72 cm); Pain 10/10; 10:02 BP 132 / 84 LA; Pulse 65; Resp 17; Pulse Ox 99% on 3 lpm NC; eo2 11:00 BP 124 / 77 LL; Pulse 61; Resp 15; Pulse Ox 97% on 2 lpm NC; eo2 11:45 BP 127 / 90; Pulse 64; Resp 15; Pulse Ox 97% ; Pain 10/10; eo2 12:45 BP 121 / 83; Pulse 60; Resp 14; Pulse Ox 95% ; Pain 8/10; eo2 13:30 BP 124 / 92; Pulse 66; Resp 16; Pulse Ox 97% ; Pain 8/10; eo2 09:48 Body Mass Index 19.77 (58.97 kg, 172.72 cm) eo2 10:02 calf reading eo2 ED Course: 09:45 Patient arrived in ED. em1 09:46 Randall Munoz PA is PHCP. jm 09:46 Artie Soler MD is Attending Physician. jmm 09:52 Arm band placed on. eo2 09:55 Alie Junior, KAELA is Primary Nurse. eo2 10:02 Triage completed. eo2 10:09 Allergy band placed. cash management officer on. Pulse ox on. NIBP on. Door closed. Noise eo2 minimized. Warm blanket given. 10:09 No provider procedures requiring assistance completed. eo2 10:38 XRAY Chest (1 view) In Process Unspecified. EDMS 11:53 Inserted saline lock: 22 gauge in right forearm, using aseptic technique. Blood tp1 collected. 14:16 IV discontinued, intact. eo2 Administered Medications: 14:09 Drug: traMADol 50 mg Route: PO; eo2 14:16 Follow up: Response: No adverse reaction eo2 Point of Care Testing: Blood Glucose: 09:52 Blood Glucose: 272 mg/dL; eo2 Ranges: Outcome: 12:43 Discharge ordered by MD. [facility] 14:16 Discharged to home ambulatory. eo2 14:16 Condition: stable 14:16 Discharge instructions given to patient, Instructed on discharge instructions, follow up and referral plans. Demonstrated understanding of instructions, follow-up care, pt picked up by his brother. 14:17 Patient left the ED. eo2 Signatures: Dispatcher [employer] EDMS Randall Munoz PA PA Leonidas Peters em1 Nataly Qureshi tp1 Alie Junior, RN RN eo2
--- NOTE | 2021-11-11 12:44 | EDPHYS ---
Physician Documentation [facility] Name: Orlando Culp Age: 46 yrs Sex: Male : 1975 Arrival Date: 11/11/2021 Time: 09:45 Bed 26 Private MD: ED Physician Artie Soler HPI: 11/11 12:43 This 46 yrs old Male presents to ER via EMS with complaints of weakness. jmm 16:04 Onset: The symptoms/episode began/occurred today. The patient has experienced similar jmm episodes in the past. This is a 46-year-old male with history of diabetes mellitus, end-stage renal disease, hypertension the presents emerged department with complaints of weakness and fatigue beginning earlier today. Patient states nearly collapsing earlier today. Complains of generalized body aches.. Historical: - Allergies: 10:02 PENICILLINS; eo2 10:02 Phenergan; eo2 - PMHx: 10:02 Diabetes - IDDM; dialysis (port in left upper arm); 11/11/21, not working anymore per eo2 pt; ESRD; GERD; Hypertension; dialysis port right upper arm ( 11/11/21 placed a few weeks per pt ); - Immunization history:: Adult Immunizations up to date. - Social history:: Smoking status: Patient denies any tobacco usage or history of. ROS: 16:04 Cardiovascular: Negative for chest pain, palpitations, and edema. jmm 16:04 Constitutional: Positive for fatigue. 16:04 Cardiovascular: Positive for 16:04 Abdomen/GI: Negative for abdominal pain, nausea and vomiting. 16:04 All other systems are negative. Exam: 16:04 Constitutional: This is a well developed, well nourished patient who is awake, alert, jmm and in no acute distress. Head/Face: atraumatic. Eyes: EOMI, no conjunctival erythema appreciated ENT: Moist Mucus Membranes Neck: Trachea midline, Supple Chest/axilla: Normal chest wall appearance and motion. Cardiovascular: Regular rate and rhythm. No edema appreciated Respiratory: Normal respirations, no respiratory distress appreciated Abdomen/GI: Non distended, soft Back: Normal ROM Skin: General appearance color normal 16:04 Musculoskeletal/extremity: ROM: intact in all extremities. 16:04 Skin: Appearance: Color: normal in color. 16:04 Neuro: Orientation: is normal, Mentation: is normal, Memory: is normal, Motor: is normal. 16:04 Psych: Behavior/mood is pleasant, cooperative. Vital Signs: 09:48 BP 130 / 21; Pulse 66; Resp 17; Temp 97.5; Pulse Ox 98% ; Weight 58.97 kg; Height 5 ft. eo2 8 in. (172.72 cm); Pain 10/10; 10:02 BP 132 / 84 LA; Pulse 65; Resp 17; Pulse Ox 99% on 3 lpm NC; eo2 11:00 BP 124 / 77 LL; Pulse 61; Resp 15; Pulse Ox 97% on 2 lpm NC; eo2 11:45 BP 127 / 90; Pulse 64; Resp 15; Pulse Ox 97% ; Pain 10/10; eo2 12:45 BP 121 / 83; Pulse 60; Resp 14; Pulse Ox 95% ; Pain 8/10; eo2 13:30 BP 124 / 92; Pulse 66; Resp 16; Pulse Ox 97% ; Pain 8/10; eo2 09:48 Body Mass Index 19.77 (58.97 kg, 172.72 cm) eo2 10:02 calf reading eo2 MDM: 10:02 Patient medically screened. [facility] 12:43 Data reviewed: vital signs, nurses notes. Counseling: I had a detailed discussion with [facility] the patient and/or guardian regarding: the historical points, exam findings, and any diagnostic results supporting the discharge/admit diagnosis, the need for outpatient follow up, to return to the emergency department if symptoms worsen or persist or if there are any questions or concerns that arise at home. 16:06 ED course: Labs except for creatinine are unremarkable. Vital signs are within normal [facility] limits. Patient was advised of the need to have dialysis today. Patient had some concerns of wanting to be hospitalized due to wanting inpatient dialysis. We contacted the dialysis center who will dialyze the patient tomorrow. We also arranged transportation to the facility for the patient. Patient was otherwise given strict return precautions. Patient understood and agrees plan of care.. 11/11 10:03 Order name: Glucose, Ancillary Testing; Complete Time: 10:05 EDMS 11/11 10:04 Order name: Basic Metabolic Panel; Complete Time: 12:34 [facility] 11/11 10:04 Order name: CBC with Diff; Complete Time: 12:21 [facility] 11/11 10:04 Order name: LFT's; Complete Time: 12:34 [facility] 11/11 10:04 Order name: Magnesium; Complete Time: 12:34 [facility] 11/11 10:04 Order name: NT PRO-BNP; Complete Time: 12:34 [facility] 11/11 10:04 Order name: PT-INR; Complete Time: 11:59 [facility] 11/11 10:04 Order name: Troponin HS; Complete Time: 12:34 [facility] 11/11 10:04 Order name: XRAY Chest (1 view); Complete Time: 10:48 [facility] 11/11 10:04 Order name: Procalcitonin; Complete Time: 13:14 [facility] 11/11 10:04 Order name: Lactate; Complete Time: 13:39 [facility] 11/11 10:04 Order name: Blood Culture Adult (2) [facility] 11/11 12:19 Order name: Manual Differential; Complete Time: 12:21 [facility] 11/11 10:04 Order name: EKG; Complete Time: 10:05 [facility] 11/11 10:04 Order name: Cardiac monitoring; Complete Time: 12:05 [facility] 11/11 10:04 Order name: EKG - Nurse/Tech; Complete Time: 10:42 [facility] 11/11 10:04 Order name: IV Saline Lock; Complete Time: 11:55 [facility] 11/11 10:04 Order name: Labs collected and sent; Complete Time: 12:05 [facility] 11/11 10:04 Order name: O2 Per Protocol; Complete Time: 10:42 [facility] 11/11 10:04 Order name: O2 Sat Monitoring; Complete Time: 10:42 [facility] Administered Medications: 14:09 Drug: traMADol 50 mg Route: PO; eo2 14:16 Follow up: Response: No adverse reaction eo2 Point of Care Testing: Blood Glucose: 09:52 Blood Glucose: 272 mg/dL; eo2 Ranges: Critical Glucose Levels:Adult <50 mg/dl or >400 mg/dl <40 mg/dl or >180 mg/dl Disposition: 17:41 Co-signature as Attending Physician, Artie Soler MD I agree with the assessment and kdr plan of care. Disposition Summary: 11/11/21 12:43 Discharge Ordered Location: Home [facility] Condition: Stable [facility] Diagnosis - Weakness jmm - Syncope Near jmm Followup: nikki - With: Private Physician - When: 2 - 3 days - Reason: Recheck today's complaints, Continuance of care, Re-evaluation by your physician Discharge Instructions: - Discharge Summary Sheet yrism - Near-Syncope jmm - Weakness jmm Forms: - Medication Reconciliation Form nikki - Thank You Letter nikki - Antibiotic Education yrism - Prescription Opioid Use nikki Signatures: Dispatcher [employer] EDArtie Gibson MD MD kdr Mickail, Joel, PA PA jmm Owoade, Eunice, RN RN eo2
[2021-11-11] MEDS ORDERED: TRAMADOL HCL 50 MG TAB ONE (14:10)
[2021-11-11 14:58] VITALS: TEMP 97.5
[2021-11-11] MEDS ORDERED: KETOROLAC 30 MG/ML INJ ONE (14:58)
[2021-11-11 15:05] VITALS: BP 124/92; O2SAT 97
== END 2021-11-11 14:17 | disposition home or self-care (01) ==
LOC: ER 09:42
DX: R53.1 Weakness (principal); R55 Syncope and collapse; E11.22 Type 2 diabetes mellitus with diabetic chronic kidney disease; I12.0 Hypertensive chronic kidney disease with stage 5 chronic kidney disease or end stage renal disease; N18.6 End stage renal disease; Z99.2 Dependence on renal dialysis; Z88.0 Allergy status to penicillin; Z88.8 Allergy status to other drugs, medicaments and biological substances
CPT/HCPCS: 36415; 71045; 80048; 80076; 82947; 83605; 83735; 83880; 84145; 84484; 85025; 85610; 87040; 99285

== ENCOUNTER 2021-11-12 14:49 | Emergency (ER) | payer BC ==
--- OUTSIDE RECORDS SUMMARY | 2021-11-12 15:03 | XMS REPORT | Continuity of Care Document ---
:1975 Author Organization [facility] t Address [address] [place] [address] Care Team Providers Name Role Phone SHARPLESS Primary Care Physician Unavailable Zelalem Miller Anavella Attending Clinician Unava ilable [id number] Attending Clinician Unavailable Daysi Llanes Attending Clinician Unavailable Lisa Kim MD Attending Clinician [phone] Gary Sweeney MD Attending Clinician Henrik Tierney MD Attending Clinician [phone] HENRIK TIERNEY Attending Clinician Unavailable Nury [...] Attending Clinician Amandeep Jara MD Attending Clinician LUCRECIA RENEE Attending Clinician Unavailable Gil Miller Admitting Clinician Unavailable [id number] Admitting Clinician Unavailable GARY SWEENEY Admitting Clinician Unavailable Scot DALTON Admitting Clinician Rolando DALTON Admitting Clinician Keith DALTON Admitting Clinician Tasneem MORENO Admitting Clinician Amandeep Jara MD Admitting Clinician LUCRECIA RENEE Admitting Clinician Unavailable Payers Payer Name Policy Type Policy Number Effective Date Expiration Date S sandra BCTZ BCTZ [id number] Advance Directives Directive Decision Effective Termination Comments Source Date Date Healthcare Agents on N/A [place] [facility] FileNameRelationshipHealthcare [facility] Agent Medical RelationshipCommunicationEstAdena [facility] [phone] (Mobile) [facility] [phone] (Mobile) Problems Condition Condition Condition Status Onset [...] 02-16 ity of 00:00: [place] 00 Medical Branch CHF CHF Disease Active Univers (congestiv (congestiv 01-23 it y of e heart e heart 00:00: [place] failure) failure) 00 Medica l Branch Hyperglyce Hyperglyce Disease Active U nivers hung hung 5-04 ity of 00:00: [place] [facility] Acidosis Acidosis Disease Active Unive rs 4-27 ity of 00:00: [place] [facility] Shock Shock Disease Active 2019 Univers 3-04 ity of 00:00: [place] [facility] E44.0 E44.0 Disease Active 2019 Univers Moderate Moderate 3-04 ity of protein protein 00:00: [place] calorie calorie 00 Medical malnutriti malnutriti Br anch on on Abnormal Abnormal Disease Active Unive rs chest chest 3-04 ity of x-ray x-ray 00:00: [place] [facility] Hyperkalem Hyperkalem Disease Active U tanja ia, ia, 2-16 ity of diminished diminished 00:00[place] renal renal 00 Medical excretion excretion Bran ch Pain, Pain, Disease Active Univers dental dental 2-13 ity of 00:00: [place] [facility] Fluid Fluid Disease Active 2017-09 Univers overload overload 1-27 ity of 00:00: [place] [facility] ESRD (end ESRD (end Disease Active 2017-09 Uni vers stage stage 1-22 ity of renal renal 00:00: [place] disease) disease) 00 Medica l on on Branch dialysis dialysis RENÉ (acute RENÉ (acute Disease Active 2017-09 U tanja kidney kidney 1-20 ity of injury) injury) 00:00: [place] [facility] ESRD on ESRD on Disease Active Univers hemodialys hemodialys 9-22 it y of is is 00:00: [place] [facility] Hyponatrem Hyponatrem Disease Active 2017- U tanja ia ia 7-27 ity of 00:00: [place] [facility] Electrolyt Electrolyt Disease Active 2018- U nivers e e 7-23 ity of disturbanc disturbanc 00:[place] High anion High anion Disease Active U tanja gap gap 7-11 ity of metabolic metabolic 00:00[place] acid[place] acid[place] 00 Medica [place] Branch Encounter Encounter Disease Active Uni vers for for 6-29 ity of dialysis dialysis 00:00: [place] [facility] Hyperkalem Hyperkalem Disease Active 2017- U tanja ia ia 6-16 ity of 00:00: [place] [facility] Type 2 Type 2 Disease Active Univers diabetes diabetes 6-09 ity of mellitus mellitus 00:00: [place] with with 00 Medical hyperosmol hyperosmol Br anch blaise welsh without without coma, with coma, with long-term long-term current current use of use of insulin insulin Nausea & Nausea & Disease Active 2016-09 Unive rs vomiting vomiting 2-18 ity of 00:00: [place] 00 Medical Branch Anemia, Anemia, Disease Active Univers chronic chronic 8-31 ity of renal renal 00:00: [place] failure failure 00 Medical Branch DKA DKA Disease Active Univers (diabetic (diabetic 8-08 ity of ketoacidos ketoacidos 00:00: Dylan ballesteros) es) 00 Medical Branch Dialysis Dialysis Disease Active Unive rs patient patient 7-13 ity of 00:00: [place] [facility] Uremia Uremia Disease Active Univers 7-13 ity of 00:00: [place] 00 Medical Branch ESRD (end ESRD (end Disease Active Uni vers stage stage 7-13 ity of renal renal 00:00: [place] disease) disease) 00 Medica l Branch Essential Essential Disease Active Uni vers hypertensi hypertensi 7-13 it y of on on 00:00: [place] [facility] Type 2 Type 2 Disease Active Univers diabetes diabetes 7-13 ity of mellitus mellitus 00:00: [place] 00 Medical Branch Hemodialys Hemodialys Disease Active U nivers is status is status 6-16 ity of 00:00: [place] [facility] Unspecifie Unspecifie Disease Active U tanja d d 5-23 ity of protein-ca protein-ca 00:00: Dylan perez Medical malnutriti malnutriti Br anch on on Hemodialys Hemodialys Disease Active U nivers is patient is patient 5-05 it y of 00:00: [place] 00 Medical Branch Acute Acute Disease Active [facility] metabolic metabolic 3-18 Luke [facility] - encephalop encephalop 00:00: Me dical athy athy 00 Center Essential Essential Disease Active [facility] hypertensi hypertensi 3-18 Radha kes - on on 00:00: [facility] 00 Center Diabetic Diabetic Disease Active [facility] [...] 2-16 it y of ia ia 00:00: [place] [facility] Branch ESRD ESRD Disease Active Univers needing needing 6-26 ity of dialysis dialysis 00:00: [place] [facility] Branch Renovascul Renovascul Disease Active U nivers ar ar 6-12 ity of hypertensi hypertensi 00:[place] Medical [place] C. C. Disease Active Univers difficile difficile 6-12 ity of colitis colitis 00:00: [place] [facility] IDDM IDDM Disease Active Univers (insulin (insulin 6-12 ity of dependent dependent 00:00[place] diabetes diabetes 00 Medica l mellitus) mellitus) Bran ch Metabolic Metabolic Disease Active Uni vers acidosis acidosis 5-28 ity of 00:00: [place] [facility] Angioedema Angioedema Disease Active U nivers 5-03 ity of 00:00: [place] [facility] Facial Facial Disease Active Univers swelling swelling 5-03 ity of 00:00: [place] [facility] Altered Altered Disease Active Univers mental mental 5-02 ity of status status 00:00: [place] [facility] Hypothermi Hypothermi Disease Active U nivers a a 4-02 ity of 00:00: [place] [facility] Diabetic Diabetic Disease Active Unive rs ketoacidos ketoacidos 10-18 it y of is is 00:00: [place] [facility] Acute Acute Disease Active Univers mastoiditi mastoiditi 10-18 it y of s with s with 00:00: [place] other other 00 Medical complicati complicati Br anch ons ons Allergies, Adverse Reactions, Alerts Allergy Allergy Status Severity Reaction(s) Onset Inactive Treating Comm ents Source Name Type Date Date Clinician Chicken Propensi Active Diarrhea Unive rs Derived ty to 03-28 ity of adverse 00:00: [place] reaction [facility] s [place] CHICKEN DRUG Active Diarrhea Univers DERIVED INGREDI 03-28 ity of 00:00: [place] 00 [facility] PENICILL Allergy Active [facility] INS 3- 00:00: [address] [facility] Allergy 17 [facility] - 00:[facility]: Medical 00 [place] PROMETHA Allergy Active High Swelling [facility] ZINE HCL 5- [facility] - [facility]: Medical 00 [place] Prometha Drug Active Swelling [facility] zine Hcl Allergy 5 [facility] - 00:00: Medical 00 [place] Prometha Propensi Active Swelling Univ ers zine Hcl ty to 5- ity of adverse 00:00: [place] reaction [facility] PROMETHA DRUG Active Swelling Univer s ZINE HCL INGREDI 5- ity of 00:00: [place] 00 [facility] Penicill Propensi Active Unknown - hiccups Un katherine ins ty to See comments 1 ity of adverse 00:00: [place] reaction 00 [facility] PENICILL Drug Active Unknown-Cmnt Un katherine INS Class 1-31 ity of 00:00: [place] 00 [facility] Social History Social Habit Start Date Stop Date Quantity Comments Source Sex Assigned At Universit y of [facility] Exposure to Not sure [facility] - SARS-CoV-2 Medical [place] (event) Alcohol intake 2019-06-28 2019-06-28 Current University of 00:00:00 00:00:00 non-drinker of [facility] alcohol [place] (finding) Tobacco use and 2019-06-28 2019-06-28 Never used Universit y of exposure 00:00:00 00:00:00 [facility] Smoking Status Start Date Stop Date Source Never smoker [facility] Medications Ordered Filled Start Stop Current Ordering Indication Dosage Frequency Signature Comments Components Source Medication Medication Date Date Medication? Clinician (SIG) Name Name Marcia 202- Yes 6mg QD Take [address] [facility] ne 10-27 tablet (6 [facility] - (DECADRON) 00:00: 23:59 [...] daily. Medical 40 Center calcium Yes 1{tbl} Q.[id number] Take [address] [facility] carbonate 2-08 [id number] tablet by [facility] - (TUMS) 500 21:50: 3D mouth 3 Medi maddie mg chewable 40 (three) Cente r tablet times daily. doxazosin 0 Yes 2mg QD Take [address] [facility] (CARDURA) 2 2-08 by mouth Luke s - MG tablet 21:50: nightly. Medi maddie 40 Center famotidine 0 Yes 20mg Q.5D Take 20 mg C [...] 1{tbl} Take [address] rphan-guaif 2-11-05 tablet by Radha torres 00:00: 23:59 mouth 2 Medical (MuciNEX 00 :00 (two) Center DM) 30-600 times mg per 12 daily as hr tablet needed for up to 10 days. levoFLOXaci 2021- Yes 500mg QD Take [address] n 2-08 02- tablet [facility] - (LEVAQUIN) 00:00: 23:59 (500 mg Med ical 500 MG 00 :00 total) by Center tablet mouth daily for 5 days. amLODIPine 2018-09 Yes [id number] 5mg Take 1 U nivers 5 mg tablet 0-14 tablet by ity of 00:00: mouth [place] 00 daily. Medical Branch atorvastati 2018-09 Yes [id number] 20mg Take 1 Univers n 20 mg 0-14 tablet by ity of tablet 00:00: mouth at [place] 00 bedtime. Medical Branch carvedilol 2018-09 Yes [id number] 12.5mg Take 1 Univers 12.5 mg 0-14 tablet by ity of tablet 00:00: mouth 2 [place] 00 (two) Medical times Branch daily with meals. insulin NPH 2018-09 Yes [id number] 7U inject 7 Univers and regular 0-14 Units ity of human 70-30 00:00: under the [place] 100 unit/mL 00 skin 2 Medica l (70-30) (two) Branch injection times daily before breakfast and dinner. [employer] sodium 2018-09 Yes [id number] 15g Take 60 mL U nivers polystyrene 0-14 by mouth ity of sulfonate 00:00: every [place] 15 gram/60 00 other day. Med ical mL Branch suspension amLODIPine 2018-09 Yes [id number] 5mg Take 1 U nivers 5 mg tablet 0-14 tablet by ity of 00:00: mouth [place] 00 daily. Medical Branch atorvastati 2018-09 Yes [id number] 20mg Take 1 Univers n 20 mg 0-14 tablet by ity of tablet 00:00: mouth at [place] 00 bedtime. Medical Branch carvedilol 2018-09 Yes [id number] 12.5mg Take 1 Univers 12.5 mg 0-14 tablet by ity of tablet 00:00: mouth 2 [place] 00 (two) Medical times Branch daily with meals. insulin NPH 2018-09 Yes [id number] 7U inject 7 Univers and regular 0-14 Units ity of human 70-30 00:00: under the [place] 100 unit/mL 00 skin 2 Medica l (70-30) (two) Branch injection times daily before breakfast and dinner. [employer] sodium 2018-09 Yes [id number] 15g Take 60 mL U nivers polystyrene 0-14 by mouth ity of sulfonate 00:00: every [place] 15 gram/60 00 other day. Med ical mL Branch suspension heparin 2019- No 1000U 1,000 Univers (PF) 1,000 06-06 Units, ity of unit/mL 17:30: 18:40 Slow IV [place] injection 00 :00 Push, Medical 1,000 Units ONCE, 1 Branc h dose, [place] 06/06/19 at 1230, Routine amLODIPine 2019-0 Yes 5mg 5 mg, Univer s (NORVASC) 06-06 Oral, ity of tablet 5 mg 14:00: DAILY, [place] 00 First dose Medical on Mon Branch 06/06/19 at 0900, Until Discontinu ed, Routine aspirin 2018-0 Yes 81mg 81 mg, Univers chewable 06-06 Oral, QAM ity of tablet 81 13:00: WITH [place] mg 00 BREAKFAST, Medical First dose Branch on Mon06/06/19 at 0800, Until Discontinu ed, Routine atorvastati 2018-0 Yes 20mg 20 mg, Univ ers n (LIPITOR) 06-06 Oral, QHS, it y of tablet 20 02:00: [place] mg 00 on Mon Medical 06/05/19 at Branch 2100, Until Discontinu ed, Routine heparin 2018-0 Yes 5000U 5,000 Univers injection 06-06 Units, ity of 5,000 Units 01:00: Subcutaneo [place] 00 us, Q12H, Medical First dose Branch on Mon06/05/19 at 2000, Until Discontinu ed, Routine glipiZIDE 5 2018-0 Yes [id number] 2.5mg Take 0.5 Univers mg tablet 06-06 tablets by ity of 00:00: mouth [place] 00 daily with Medical breakfast. Branch Monitor glucose carefully as this medication can drop your blood sugars too much. Take insulin with this medication with careful monitoring carvedilol 2018-0 Yes 12.5mg 12.5 mg, U nivers (COREG) 06-05 Oral, BID ity of tablet 12.5 22:00: MEALS, [place] mg 00 First dose Medical on Mon Branch 06/05/19 at 1700, Until Discontinu ed, Routine insulin NPH 2018-0 Yes 7U 7 Units, Un katherine and regular 06-05 Subcutaneo it y of human 70-30 21:30: us, BIDAC, [place] (HUMULIN 00 First dose Medic al 70-30 U-100 on Mon Branch INSULIN) 06/05/19 at 100 unit/mL 1630, (70-30) Until injection 7 Discontinu Units ed, Routine epoetin 2018-0 2019- No [id number] 10,000 Unive rs bin 06-05-18 Units, ity of (PROCRIT) 20:15: 21:42 Slow [...] 2019- No 1000U 1,000 Univers (PF) 1,000 06-05 Units, ity of unit/mL 15:45: 22:51 Slow [...] 2019- No 1000U 1,000 Univers (PF) 1,000 9-14 09-14 Units, ity of unit/mL 15:30: 20:39 Slow IV [place] injection 00 :00 Push, Medical 1,000 Units ONCE, 1 Branc h dose, [facility] 06/01/19 at 1030, Routine traMADol 2019- No 50mg 50 mg, Univer s (ULTRAM) 06-01 Oral, ity of tablet 50 13:41: 13:40 Q8HPRN, [place] mg 10 :10 Starting Medical Sat Branch 06/01/19 at 0841, Until 06/03/19 at 0840, Routine, Pain (scale 4-6) acetaminoph Yes 650mg 650 mg, Un katherine en 06-01 Oral, ity of (TYLENOL) 13:41: Q6HPRN, [place] tablet 650 08 Starting Medic al mg Sat Branch 06/01/19 at 0841, Until Discontinu ed, Routine, Pain (scale 1-3) insulin NPH Yes 5U 5 Units, Un katherine and regular 05-28 Subcutaneo it y of human 22:00: [place], [place] (HUMULIN 00 QAM+PM, Medical 70-30 U-100 First dose Br anch INSULIN) on Mon 100 unit/mL 05/28/19 at (70-30) 1700, injection 5 Until Units Discontinu ed, Routine heparin 2019- No 1000U 1,000 Univers (PF) 1,000 05-28 Units, ity of unit/mL 19:45: 23:55 Slow IV [place] injection 00 :00 Push, Medical 1,000 Units ONCE, 1 Branc h dose, [facility] 05/28/19 at 1445, Routine Sliding 2018-0 Yes Subcutaneo Univ ers Scale 9-10 us, TID ity of Insulin - 17:00: MEALS+HS, [place] Lispro 00 First dose Medical (HumaLOG) + on Mon [place] Fsbg 05/28/19 at Testing 1200, Until Discontinu ed, Routine insulin NPH 2019- No 7U 7 Units, U nivers and regular 05-2810 Subcutaneo i ty of human 16:45: 18:20 [place], [place] (HUMULIN 00 :14 QAM+PM, Medical 70-30 U-100 First dose Br anch INSULIN) on e 100 unit/mL 05/28/19 at (70-30) 1145, injection 7 Until Units Discontinu ed, Routine acetaminoph 2019-0 Yes 650mg 650 mg, Un katherine en 10 Oral, ity of (TYLENOL) 16:38: Q6HPRN, [place] tablet 650 45 Starting Medic al mg Tue Branch 05/28/19 at 1138, Until Discontinu ed, Routine, Pain (scale 1-3) glucagon 2019-0 Yes 1mg 1 mg, Univers (GLUCAGEN 10 Intramuscu ity of DIAGNOSTIC 16:38: lar, PRN, [...] 2019-0 Yes 15g 15 g, Univers polystyrene 9-07 Oral, Q ity o f sulfonate 14:00: OTHERDAY, [place] (KAYEXALATE 00 First dose Me dical ) on Sat Branch suspension 05/25/19 at 15 g 0900, Until Discontinu ed, Routine amLODIPine 2019-0 Yes 5mg 5 mg, Univer s (NORVASC) 9-07 Oral, ity of tablet 5 mg 14:00: DAILY, [place] 00 First dose Medical on Sat Branch 05/25/19 at 0900, Until Discontinu ed, Routine glipiZIDE 2019-0 Yes 2.5mg 2.5 mg, Univ ers (GLUCOTROL) 9- Oral, QAM ity of tablet 2.5 13:00: [...] Branch 2100, Until Discontinu ed, Routine carvedilol 2018- Yes 12.5mg 12.5 mg, U nivers (COREG) 05-24 Oral, BID ity of tablet 12.5 22:00: MEALS, [place] mg 00 First dose Medical on Fri Branch 05/24/19 at 1700, Until Discontinu ed, Routine insulin NPH 2018- Yes 7U 7 [...] Medical (NOVOLOG) + on Mon Branch Fsbg 05/24/19 at Testing 1200, Until Discontinu ed, Routine sevelamer 2018- Yes 800mg 800 mg, Univ ers (RENVELA) 05-24 Oral, TID ity o f tablet 800 17:00: MEALS, [place] mg 00 First dose Medical on Fri Branch 05/24/19 at 1200, Until Discontinu ed, Routine glucagon 2018- Yes 1mg 1 mg, Univers (GLUCAGEN 05-24 [...] injection 22 Starting Medica l 25 mL Mon05/24/19 Branch at 1147, Until Discontinu ed, ADONAY, Blood Glucose < or = 70 mg/dL and patient is unable to swallow or has mental status changes. ondansetron 2019-0 Yes 4mg 4 mg, Slow Univers (ZOFRAN 05-24 IV Push, ity of (PF)) 15:40: Q6HPRN, [place] injection 4 46 Starting Medi maddie mg Mon05/24/19 Branch at 1040, Until Discontinu ed, Routine, Nausea and Vomiting (N/V) acetaminoph 2019-0 Yes 650mg 650 mg, Un katherine en 05-24 Oral, ity of (TYLENOL) 15:40: Q6HPRN, [place] tablet 650 39 Starting Medic al mg Mon05/24/19 Branch at 1040, Until Discontinu ed, Routine, Pain (scale 1-3) albuterol 2019- No 10mg 10 mg, Unive rs (PROVENTIL) 05-24 Inhalation i ty of 2.5 mg /3 15:00: 13:51 , [place] mL (0.083 00 :00 ONCE - PT Medic al %) ROOM, 1 Branch nebulizer dose, Mon solution 10 05/24/19 at mg 1000, Routine sodium 2018-0 Yes 15g 15 g, Univers polystyrene 05-21 [...] 20mg 20 mg, Univ ers n (LIPITOR) 05-21 Oral, QHS, it y of tablet 20 02:00: First dose [place] mg 00 on [facility] Medical 05/20/19 at Branch 2100, Until Discontinu ed, Routine carvedilol 2019-0 Yes 12.5mg 12.5 mg, U nivers (COREG) 05-20 Oral, BID ity of tablet 12.5 22:00: MEALS, [place] mg 00 First dose Medical on [facility] 05/20/19 at 1700, Until Discontinu ed, Routine insulin NPH 2018-0 Yes 7U 7 Units, Un katherine and regular 05-20 Subcutaneo it y of human 70-30 21:30: us, BIDAC, [place] (HUMULIN 00 First dose Medic al 70-30 U-100 on [facility] INSULIN) 05/20/19 at 100 unit/mL 1630, (70-30) Until injection 7 Discontinu Units ed, Routine heparin 2018-0 2019- No 5000U DIALYSIS [facility] ers (1,000 05-20 ONCE - JUANJO ity of unit/mL, 10 20:15: 22:49 DSU, 1 [place] mL vial) 00 :00 dose, [facility] Medica l 05/20/19 at Branch 1515, Routine Sliding 2019-[address] [facility] ers Scale 05-20 us, TID ity of Insulin - 17:00: MEALS+HS, [place] Aspart 00 First dose Medical (NOVOLOG) + on [facility] Fsbg 05/20/19 at Testing 1200, Until Discontinu ed, Routine sevelamer 2019-0 Yes 800mg 800 mg, [facility] ers (RENVELA) 05-20 Oral, TID ity o f tablet 800 17:00: MEALS, [place] mg 00 First dose Medical on [facility] 05/20/19 at 1200, Until Discontinu ed, Routine ondansetron 2019-0 Yes 4mg 4 mg, Slow Univers (ZOFRAN 05-20 IV Push, ity of (PF)) 16:12: Q6HPRN, [place] injection 4 19 Starting Medi maddie mg [facility] 05/20/19 Branch at 1112, Until Discontinu ed, Routine, Nausea and Vomiting (N/V) acetaminoph 2018- Yes 650mg 650 mg, Un katherine en 05-20 Oral, ity of (TYLENOL) 16:11: Q6HPRN, [place] tablet 650 58 Starting Medic al mg 05/20/19 Branch at 1111, Until Discontinu ed, Routine, Pain (scale 1-3) Sliding Yes Subcutaneo Univ ers Scale 05-15 us, TID ity of Insulin - 17:00: MEALS+HS, [place] Lispro 00 First dose Medical (HumaLOG) + on Mon Branch Fsbg 05/15/19 at Testing 1200, Until Discontinu ed, Routine heparin 2018- No 5000U 5,000 Univers 1,000 05-15 Units, [...] 0.9% 2018- 2019- No 500mL at 50 Unive rs (NS) IV 05-10 mL/hr, IV ity [...] Until Discontinu ed, Routine epoetin 2019- No [id number] 10,000 Unive rs bin 05-10 Units, ity of (PROCRIT) 16:30: 22:37 [place]o [place] injection 00 :00 us, ONCE Medica l 10,000 NOW, 1 Branch Units dose, Mon05/10/19 at 1130, Routine
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 Restricted medication : KAREN NAVAS calcitriol 2019-0 Yes .5ug 0.5 mcg, Uni [...] at 0900, Until Discontinu ed, Routine carvedilol 2019- Yes 12.5mg 12.5 mg, U nivers (COREG) 05-09 Oral, BID ity of tablet 12.5 22:00: MEALS, [place] mg 00 First dose Medical on [place] Branch 05/09/19 at 1700, Until Discontinu ed, Routine insulin 2018- Yes Subcutaneo Univ ers lispro 05-09 us, TID ity of (human) 17:00: MEALS+, [place] (HumaLOG 00 First dose Medic al U-100) on [place] Branch injection 05/09/19 at 1200, Until Discontinu ed, Routine alteplase 2019- No 2mg 2 mg, Univer s (CATHFLO 05-09 INTRA-CATH ity of ACTIVASE) 16:30: 14:55 [place], [place] injection 2 00 :00 ONCE, 1 Medic al mg dose, [place] Branch 05/09/19 at 1130, Routine
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
Reaso n for Non-Formul jasmin Use: SPECIFIC INDICATION FOR NONFORMULA RY PRODUCT heparin 2018- 2019- No 5000U 5,000 Univers 1,000 05-09 Units, ity of unit/mL 15:30: 21:04 Slow IV [place] injection 00 :00 Push, Medical 5,000 Units DIALYSIS Bran ch ONCE - PT ROOM, 1 dose, [place] 05/09/19 at 1030, Routine insulin NPH 2018-0 Yes 7U 7 Units, Un katherine and regular 05-09 Subcutaneo it y of human 70-30 14:30: , [place] (HUMULIN 00 QAM+PM, Medical 70-30 U-100 First dose Br anch INSULIN) on [place] 100 unit/mL 05/09/19 at (70-30) 0930, injection 7 Until Units Discontinu ed, Routine glucagon 2019-0 Yes 1mg 1 mg, Univers (GLUCAGEN 05-09 [...] Branch 05/09/19 at 0920, Until Discontinu ed, ADONAY, Blood Glucose < or = 70 mg/dL and patient is unable to swallow or has mental status changes. acetaminoph Yes 650mg 650 mg, Un katherine en 05-09 Oral, ity of (TYLENOL) 14:20: Q6HPRN, [place] tablet 650 09 Starting Medic al mg [place] Branch 05/09/19 at 0920, Until Discontinu ed, Routine, Pain (scale 1-3) patiromer 2019- No [id number] 1{packa Take 1 Univers calcium 05-07 ge} [...] Until Discontinu ed, Routine epoetin 2019- No [id number] 10,000 Unive rs bin 05-03-17 Units, ity of (PROCRIT) 16:00: 00:37 [place]cut[place]o [place] injection 00 :00 us, ONCE, Medic al 10,000 1 dose, Branch Units 05/03/19 at 1100, Routine
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 Restricted medication : KAREN NAVAS heparin 2019- No 5000U 5,000 Univers 1,000 05-03-16 Units, ity of unit/mL 14:45: 23:25 Slow IV [place] injection 00 :00 Push, Medical 5,000 Units DIALYSIS Bran ch ONCE - PT ROOM, 1 dose, 05/03/19 at 0945, Routine NaCl 0.9% 2019- No 10mL 10 mL, Unive rs (NS) 05-03 Slow IV ity of injection 14:45: 18:10 [place], [place] 10 mL 00 :00 DIALYSIS Medical ONCE - PT Branch ROOM, 1 dose, Mon05/03/19 at 0945, Routine acetaminoph Yes 650mg 650 mg, Un katherine en 05-03 Oral, ity of (TYLENOL) 14:28: Q6HPRN, [place] tablet 650 20 Starting Medic al mg Mon05/03/19 at 0928, Until Discontinu ed, Routine, Pain [...] ch ONCE - JUANJO DSU, 1 dose, 04/29/19 at 0915, Routine ondansetron 2019- No 4mg [...] IV ity of (BENADRYL) 14:10: 04:59 [place], [place] injection 22 :00 DIALYSIS Medica l 12.5 mg ONCE PRN - Branch JUANJO DSU, 1 dose, Starting 04/29/19 at 0910, Until 04/29/19 at 2359, Routine, Itching Sliding 2019-0 Yes Subcutaneo Univ ers Scale 8 us, AC+HS, ity of Insulin-Reg 12:30: First [...] 25 mL, Univ ers % in water 12 Slow IV ity of (D50W) 12:06: Push, PRN, [place] injection 22 Starting Medica l 25 mL [facility] 04/29/19 at 0706, Until Discontinu ed, ADONAY, Blood Glucose < or = 70 mg/dL and patient is unable to swallow or has mental status changes. ondansetron 2019-0 Yes 4mg 4 mg, Slow Univers (ZOFRAN 12 IV Push, ity of (PF)) 12:00: Q6HPRN, [place] injection 4 24 Starting Medi maddie mg [facility] Branch 04/29/19 at 0700, Until Discontinu ed, [...] Routine atorvastati 2018-0 Yes 20mg 20 mg, Univ ers n (LIPITOR) 8 Oral, QHS, it y of tablet 20 02:00: First dose [place] mg 00 on Mon04/24/19 at Branch 2100, Until Discontinu ed, Routine docusate 2019-0 Yes 100mg 100 mg, Unive rs (COLACE) 8 Oral, BID, ity o f capsule 100 01:00: First dose [place] mg 00 on Mon Medical 04/24/19 at Branch 2000, Until Discontinu ed, Routine heparin 2018-0 Yes 5000U 5,000 Univers injection 04-25 Units, ity of 5,000 Units 01:00: Subcutaneo [place] 00 us, Q12H, Medical First dose Branch on Mon04/24/19 at 2000, Until Discontinu ed, Routine carvedilol 2019-0 Yes 12.5mg 12.5 mg, U nivers (COREG) 8 Oral, BID ity of tablet 12.5 22:00: MEALS, [place] 00 First dose Medical on Mon04/24/19 at 1700, Until Discontinu ed, Routine sevelamer 2019-0 Yes 800mg 800 mg, Univ ers (RENVELA) 8 Oral, TID ity o f tablet 800 17:00: MEALS, [place] mg 00 First dose Medical on Mon04/24/19 at 1200, Until Discontinu ed, Routine heparin 2019-0 2019- No 5000U 5,000 Univers 1,000 04-24 08-07 Units, ity of unit/mL 15:15: 18:57 Slow IV [place] injection 00 :00 Push, Medical 5,000 Units DIALYSIS Bran ch ONCE - PT ROOM, 1 dose, Mon04/24/19 at 1015, Routine insulin NPH 2019-0 Yes 7U 7 Units, Un katherine and regular 8-07 Subcutaneo it y of human 70-30 14:30: us, BIDAC, [place] (HUMULIN 00 First dose Medic al 70-30 U-100 on Mon Branch INSULIN) 04/24/19 at 100 unit/mL 0930, (70-30) Until injection 7 Discontinu Units ed, Routine metoclopram 2019-0 Yes 10mg 10 mg, Univ ers mrakos HCl 04-24 Slow IV ity of (REGLAN) 14:30: Push, Q8H, [place] injection 00 First dose Medi maddie 10 mg on Wed Branch 04/24/19 at 0930, Until Discontinu ed, Routine Sliding 2019-0 Yes Subcutaneo Univ ers Scale 8-07 us, Q4H, ity of Insulin - 14:15: First dose [place] Aspart 00 on Mon Medical (NOVOLOG) + 04/24/19 at [facility] 0915, Testing Until Discontinu ed, Routine [...] [place] KIT) 21 Starting Medical injection 1 Mon04/24/19 Br anch mg at 0913, Until Discontinu [...] swallow or has mental status changes. diphenhydrA 2018- 2019- No 12.5mg 12.5 mg, Univers MINE [...] 2359, Routine, Nausea and Vomiting (N/V) amLODIPine 2018-0 Yes 5mg 5 mg, Univer s (NORVASC) 8 Oral, ity of tablet 5 mg 14:00: DAILY, [place] 00 First dose Medical on [facility] 04/21/19 at 0900, Until Discontinu ed, Routine aspirin 2018-0 Yes 81mg 81 mg, Univers chewable 8 Oral, QAM ity of tablet 81 13:00: WITH [place] mg 00 BREAKFAST, Medical First dose Branch on [place] 04/21/19 at 0800, Until Discontinu ed, Routine atorvastati 2018-0 Yes 20mg 20 mg, Univ ers n (LIPITOR) 8- Oral, QHS, it y of tablet 20 02:00: First dose [place] mg 00 on [facility] 04/20/19 at Branch 2100, Until Discontinu ed, Routine docusate 2019-0 Yes 100mg 100 mg, Unive rs (COLACE) 8-04 Oral, BID, ity o f capsule 100 01:00: First dose [place] mg 00 on [facility] 04/20/19 at Branch 2000, Until Discontinu ed, Routine heparin 2019-0 Yes 5000U 5,000 Univers injection 8 Units, ity of 5,000 Units 01:00: Subcutaneo [place] 00 us, Q12H, Medical First dose Branch on [facility] 04/20/19 at 2000, Until Discontinu ed, Routine [...] 00 First dose Medical (NOVOLOG) + on [facility] Branch [facility] 04/20/19 at Testing 1200, Until Discontinu ed, Routine sevelamer 2018-0 Yes 800mg 800 mg, Univ ers (RENVELA) 04-20 Oral, TID ity o f tablet 800 17:00: MEALS, [place] mg 00 First dose Medical on [facility] Branch 04/20/19 at 1200, Until Discontinu ed, Routine ondansetron 2019-0 Yes 4mg 4 mg, Slow Univers (ZOFRAN 04-20 IV Push, ity of (PF)) 16:50: Q6HPRN, [place] injection 4 56 Starting Medi maddie mg [...] IV ity of (D50W) 16:49: Push, PRN, [place] injection 56 Starting Medica l 25 mL 04/20/19 Branch at 1149, Until Discontinu ed, ADONAY, Blood Glucose < or = 70 mg/dL and patient is unable to swallow or has mental status changes. heparin 2019- No 5000U 5,000 Univers 1,000 04-20-04 Units, ity of unit/mL 16:15: 00:53 Slow [...] 2359, Routine, Nausea and Vomiting (N/V) diphenhydrA 2018- No 12.5mg 12.5 mg, Univers MINE 04-20 [...] dose, 04/15/19 at 1000, Routine NaCl 0.9% 2018- 2019- No 10mL 10 mL, Unive rs (NS) 04-15 Slow IV ity of injection 15:00: 20:31 Push, [place] 10 mL 00 :00 DIALYSIS Medical ONCE - [facility], 1 dose, [facility] 04/15/19 at 1000, Routine traMADol 2018- 2019- No 50mg 50 mg, Univer s (ULTRAM) 04-15 Oral, ity of tablet 50 13:21: 13:20 Q8HPRN, [place] mg 59 :59 Starting Medical [facility] 04/15/19 at 0821, Until 04/17/19 at 0820, Routine, Pain (scale 4-6) acetaminoph 2018- Yes 650mg 650 mg, Un katherine en 04-15 Oral, ity of (TYLENOL) 13:21: Q6HPRN, [place] tablet 650 57 Starting Medic al mg [facility] 04/15/19 at 0821, Until Discontinu ed, Routine, Pain (scale 1-3) insulin 2018- 2019- No 5U 5 Units, Unive rs regular 04-15 Slow IV ity of human 13:15: 12:15 Push, [place] (HUMULIN R) 00 :00 ONCE, 1 Medic al injection 5 dose, [facility] Units 04/15/19 at 0815, STAT carvedilol 2018- Yes [id number] 12.5mg Take 1 Univers 12.5 mg 7-29 tablet by ity of tablet 00:00: mouth 2 (two) Medical times Branch daily with meals. amLODIPine 2018- Yes [id number] 5mg Take 1 U nivers 5 mg tablet 7-29 tablet by ity of 00:00: mouth [place] 00 daily. Medical Branch carvedilol 2018-0 Yes [id number] 12.5mg Take 1 Univers 12.5 mg 7-29 tablet by ity of tablet 00:00: mouth 2 [place] (two) Medical times Branch daily with meals. amLODIPine 2018- Yes [id number] 5mg Take 1 U nivers 5 mg tablet 7-29 tablet by ity of 00:00: mouth [place] 00 daily. [facility] Branch carvedilol 2018- Yes [id number] 12.5mg Take 1 Univers 12.5 mg 7-29 tablet by ity of tablet 00:00: mouth 2 (two) Medical times Branch daily with meals. amLODIPine Yes [id number] 5mg Take 1 U nivers 5 mg tablet 7-29 tablet by ity of 00:00: mouth [place] 00 daily. Medical Branch carvedilol Yes [id number] 12.5mg Take 1 Univers 12.5 mg 7-29 tablet by ity of tablet 00:00: mouth 2 (two) Medical times Branch daily with meals. amLODIPine Yes [id number] 5mg Take 1 U nivers 5 mg tablet 7-29 tablet by ity of 00:00: mouth [place] 00 daily. Medical Branch carvedilol Yes [id number] 12.5mg Take 1 Univers 12.5 mg 7-29 tablet by ity of tablet 00:00: mouth (two) Medical times Branch daily with meals. amLODIPine Yes [id number] 5mg Take 1 U nivers 5 mg tablet 7-29 tablet by ity of 00:00: mouth [place] 00 daily. Medical Branch carvedilol Yes [id number] 12.5mg Take 1 Univers 12.5 mg 7-29 tablet by ity of tablet 00:00: mouth (two) Medical times Branch daily with meals. amLODIPine Yes [id number] 5mg Take 1 U nivers 5 mg tablet 7-29 tablet by ity of 00:00: mouth [place] 00 daily. Medical Branch carvedilol Yes [id number] 12.5mg Take 1 Univers 12.5 mg 7-29 tablet by ity of tablet 00:00: mouth (two) Medical times Branch daily with meals. amLODIPine Yes [id number] 5mg Take 1 U nivers 5 mg tablet 7-29 tablet by ity of 00:00: mouth [place] 00 daily. Medical Branch carvedilol Yes [id number] 12.5mg Take 1 Univers 12.5 mg 7-29 tablet by ity of tablet 00:00: mouth 2 (two) Medical times Branch daily with meals. amLODIPine Yes [id number] 5mg Take 1 U nivers 5 mg tablet 7-29 tablet by ity of 00:00: mouth [place] 00 daily. Medical Branch carvedilol Yes [id number] 12.5mg Take 1 Univers 12.5 mg 7-29 tablet by ity of tablet 00:00: mouth 2 (two) Medical times Branch daily with meals. amLODIPine Yes [id number] 5mg Take 1 U nivers 5 mg tablet 7-29 tablet by ity of 00:00: mouth [place] 00 daily. Medical Branch carvedilol 0 Yes [id number] 12.5mg Take 1 Univers 12.5 mg 7-29 tablet by ity of tablet 00:00: mouth 2 00 (two) Medical times Branch daily with meals. amLODIPine Yes [id number] 5mg Take 1 U nivers 5 mg tablet 7-29 tablet by ity of 00:00: mouth [place] 00 daily. Medical Branch carvedilol Yes [id number] 12.5mg Take 1 Univers 12.5 mg 7-29 tablet by ity of tablet 00:00: mouth 2 (two) Medical times Branch daily with meals. amLODIPine Yes [id number] 5mg Take 1 U nivers 5 mg tablet 7-29 tablet by ity of 00:00: mouth [place] 00 daily. Medical Branch carvedilol Yes [id number] 12.5mg Take 1 Univers 12.5 mg 7-29 tablet by ity of tablet 00:00: mouth 2 00 (two) Medical times Branch daily with meals. amLODIPine Yes [id number] 5mg Take 1 U nivers 5 mg tablet 7-29 tablet by ity of 00:00: mouth [place] 00 daily. Medical Branch carvedilol 0 Yes [id number] 12.5mg Take 1 Univers 12.5 mg 7-29 tablet by ity of tablet 00:00: mouth 2 00 (two) Medical times Branch daily with meals. amLODIPine 0 Yes [id number] 5mg Take 1 U nivers 5 mg tablet 7-29 tablet by ity of 00:00: mouth [place] 00 daily. Medical Branch carvedilol 2019- No [id number] 12.5mg Take 1 Univers 12.5 mg 7-08 07-29 tablet by ity of tablet 00:00: 00:00 mouth 2 [place] 00 :00 (two) Medical times Branch daily with meals. amLODIPine 2018- No [id number] 5mg Take 1 Univers 5 mg tablet 03-25 tablet by it y of 00:00: 00:00 mouth [place] 00 :00 daily. Medical Branch glipiZIDE 5 2018- No [id number] 2.5mg Take 0.5 Univers mg tablet 624 tablets by ity of 00:00: 04:59 mouth [place] 00 :00 daily with Medical breakfast Branch for 90 days. Monitor glucose carefully as this medication can drop your blood sugars too much. Take insulin with this medication with careful monitoring sevelamer 2018- No [id number] 800mg Take 1 Univers 800 mg 6-25 -24 tablet by ity of tablet 00:00: 04:59 mouth 3 [place] 00 :00 (three) Medical times Branch daily with meals for 90 days. glipiZIDE 5 2018- No [id number] 2.5mg Take 0.5 Univers mg tablet 03-1224 tablets by ity of 00:00: 04:59 mouth [place] 00 :00 daily with Medical breakfast Branch for 90 days. Monitor glucose carefully as this medication can drop your blood sugars too much. Take insulin with this medication with careful monitoring sevelamer 2018- No [id number] 800mg Take 1 Univers 800 mg 6-25 24 tablet by ity of tablet 00:00: 04:59 mouth 3 [place] 00 :00 (three) Medical times Branch daily with meals for 90 days. glipiZIDE 5 2018- No [id number] 2.5mg Take 0.5 Univers mg tablet -24 tablets by ity of 00:00: 04:59 mouth [place] 00 :00 daily with Medical breakfast Branch for 90 days. Monitor glucose carefully as this medication can drop your blood sugars too much. Take insulin with this medication with careful monitoring sevelamer 2018- No [id number] 800mg Take 1 Univers 800 mg 6-25 -24 tablet by ity of tablet 00:00: 04:59 mouth 3 [place] 00 :00 (three) Medical times Branch daily with meals for 90 days. glipiZIDE 5 2018- No [id number] 2.5mg Take 0.5 Univers mg tablet 6-25 -24 tablets by ity of 00:00: 04:59 mouth [place] 00 :00 daily with Medical breakfast Branch for 90 days. Monitor glucose carefully as this medication can drop your blood sugars too much. Take insulin with this medication with careful monitoring [facility] 2018- No [id number] 800mg Take 1 Univers 800 mg 6-25 09-24 tablet by ity of tablet 00:00: 04:59 mouth 3 [place] 00 :00 (three) Medical times Branch daily with meals for 90 days. glipiZIDE 5 2018- No [id number] 2.5mg Take 0.5 Univers mg tablet 6-25 -24 tablets by ity of 00:00: 04:59 mouth [place] 00 :00 daily with Medical breakfast Branch for 90 days. Monitor glucose carefully as this medication can drop your blood sugars too much. Take insulin with this medication with careful monitoring [facility] 2018- No [id number] 800mg Take 1 Univers 800 mg 6-25 -24 tablet by ity of tablet 00:00: 04:59 mouth 3 [place] 00 :00 (three) Medical times Branch daily with meals for 90 days. glipiZIDE 5 2018- No [id number] 2.5mg Take 0.5 Univers mg tablet 6-25 -24 tablets by ity of 00:00: 04:59 mouth [place] 00 :00 daily with Medical breakfast Branch for 90 days. Monitor glucose carefully as this medication can drop your blood sugars too much. Take insulin with this medication with careful monitoring [facility] 2018- No [id number] 800mg Take 1 Univers 800 mg 6-25 -24 tablet by ity of tablet 00:00: 04:59 mouth 3 [place] 00 :00 (three) Medical times Branch daily with meals for 90 days. glipiZIDE 5 2018- No [id number] 2.5mg Take 0.5 Univers mg tablet 6-25 -24 tablets by ity of 00:00: 04:59 mouth [place] 00 :00 daily with Medical breakfast Branch for 90 days. Monitor glucose carefully as this medication can drop your blood sugars too much. Take insulin with this medication with careful monitoring [facility] 2018- No [id number] 800mg Take 1 Univers 800 mg 6-25 09-24 tablet by ity of tablet 00:00: 04:59 mouth 3 [place] 00 :00 (three) Medical times Branch daily with meals for 90 days. glipiZIDE 5 2018- No [id number] 2.5mg Take 0.5 Univers mg tablet 6-25 -24 tablets by ity of 00:00: 04:59 mouth [place] 00 :00 daily with Medical breakfast Branch for 90 days. Monitor glucose carefully as this medication can drop your blood sugars too much. Take insulin with this medication with careful monitoring [facility] 2018- No [id number] 800mg Take 1 Univers 800 mg 6-25 09-24 tablet by ity of tablet 00:00: 04:59 mouth 3 [place] 00 :00 (three) Medical times Branch daily with meals for 90 days. glipiZIDE 5 2018- No [id number] 2.5mg Take 0.5 Univers mg tablet 6-25 -24 tablets by ity of 00:00: 04:59 mouth [place] 00 :00 daily with Medical breakfast Branch for 90 days. Monitor glucose carefully as this medication can drop your blood sugars too much. Take insulin with this medication with careful monitoring [facility] 2018- No [id number] 800mg Take 1 Univers 800 mg 6-25 -24 tablet by ity of tablet 00:00: 04:59 mouth 3 [place] 00 :00 (three) Medical times Branch daily with meals for 90 days. glipiZIDE 5 2018- No [id number] 2.5mg Take 0.5 Univers mg tablet 6-25 -24 tablets by ity of 00:00: 04:59 mouth [place] 00 :00 daily with Medical breakfast Branch for 90 days. Monitor glucose carefully as this medication can drop your blood sugars too much. Take insulin with this medication with careful monitoring [facility] 2018- No [id number] 800mg Take 1 Univers 800 mg 6-25 -24 tablet by ity of tablet 00:00: 04:59 mouth 3 [place] 00 :00 (three) Medical times Branch daily with meals for 90 days. glipiZIDE 5 2018- No [id number] 2.5mg Take 0.5 Univers mg tablet 6-25 -24 tablets by ity of 00:00: 04:59 mouth [place] 00 :00 daily with Medical breakfast Branch for 90 days. Monitor glucose carefully as this medication can drop your blood sugars too much. Take insulin with this medication with careful monitoring sevelamer 2018- No [id number] 800mg Take 1 Univers 800 mg 6-12 06- tablet by ity of tablet 00:00: 04:59 mouth 3 [place] 00 :00 (three) Medical times Branch daily with meals for 90 days. sevelamer 2018- No [id number] 800mg Take 1 [facility] 800 mg 6-25 06-11 tablet by ity of tablet 00:00: 04:59 mouth 3 [place] 00 :00 (three) Medical times Branch daily with meals for 90 days. glipiZIDE 5 2019- No [id number] 2.5mg Take 0.5 Univers mg tablet 03-12 tablets by ity of 00:00: 04:59 mouth [place] 00 :00 daily with Medical breakfast Branch for 90 days. Monitor glucose carefully as this medication can drop your blood sugars too much. Take insulin with this medication with careful monitoring [facility] 2018- No [id number] 800mg Take 1 Univers 800 mg 6-06-11 tablet by ity of tablet 00:00: 04:59 mouth 3 [place] 00 :00 (three) Medical times Branch daily with meals for 90 days. glipiZIDE 5 2018- No [id number] 2.5mg Take 0.5 Univers mg tablet 03-12 tablets by ity of 00:00: 00:00 mouth [place] 00 :00 daily with Medical breakfast Branch for 90 days. Monitor glucose carefully as this medication can drop your blood sugars too much. Take insulin with this medication with careful monitoring sodium Yes [id number] 15g Take 60 mL U nivers polystyrene 6-21 by mouth ity of sulfonate 00:00: every [place] 15 gram/60 00 other day. Med ical mL Branch suspension sodium Yes [id number] 15g Take 60 mL U nivers polystyrene 6-21 by mouth ity of sulfonate 00:00: every [place] 15 gram/60 00 other day. Med ical mL Branch suspension sodium Yes [id number] 15g Take 60 mL U nivers polystyrene 6-21 by mouth ity of sulfonate 00:00: every [place] 15 gram/60 00 other day. Med ical mL Branch suspension sodium Yes [id number] 15g Take 60 mL U nivers polystyrene 6-21 by mouth ity of sulfonate 00:00: every [place] 15 gram/60 00 other day. Med ical mL Branch suspension sodium 2019-0 Yes [id number] 15g Take 60 mL U nivers polystyrene 6-21 by mouth ity of sulfonate 00:00: every [place] 15 gram/60 00 other day. Med ical mL Branch suspension sodium 2019-0 Yes [id number] 15g Take 60 mL U nivers polystyrene 6-21 by mouth ity of sulfonate 00:00: every [place] 15 gram/60 00 other day. Med ical mL Branch suspension sodium 2018-0 Yes [id number] 15g Take 60 mL U nivers polystyrene 6-21 by mouth ity of sulfonate 00:00: every [place] 15 gram/60 00 other day. Med ical mL Branch suspension sodium 2018-0 Yes [id number] 15g Take 60 mL U nivers polystyrene 6-21 by mouth ity of sulfonate 00:00: every [place] 15 gram/60 00 other day. Med ical mL Branch suspension sodium 2018-0 Yes [id number] 15g Take 60 mL U nivers polystyrene 6-21 by mouth ity of sulfonate 00:00: every [place] 15 gram/60 00 other day. Med ical mL Branch suspension sodium 2018-0 Yes [id number] 15g Take 60 mL U nivers polystyrene 6-21 by mouth ity of sulfonate 00:00: every [place] 15 gram/60 00 other day. Med ical mL Branch suspension sodium 2018-0 Yes [id number] 15g Take 60 mL U nivers polystyrene 6-21 by mouth ity of sulfonate 00:00: every [place] 15 gram/60 00 other day. Med ical mL Branch suspension sodium 2019-0 Yes [id number] 15g Take 60 mL U nivers polystyrene 6-21 by mouth ity of sulfonate 00:00: every [place] 15 gram/60 00 other day. Med ical mL Branch suspension sodium 2019-0 Yes [id number] 15g Take 60 mL U nivers polystyrene 6-21 by mouth ity of sulfonate 00:00: every [place] 15 gram/60 00 other day. Med ical mL Branch suspension aspirin 81 2019- 2019- No [id number] 81mg Take 1 Univers mg chewable 5-28 11-25 tablet by it y of tablet 00:00: 05:59 mouth [place] 00 :00 daily with Medical breakfast Branch for 180 days. aspirin 81 2019- No [id number] 81mg Take 1 Univers mg chewable 5-28 11-25 tablet by it y of tablet 00:00: 05:59 mouth [place] 00 :00 daily with Medical breakfast Branch for 180 days. aspirin 81 2019- No [id number] 81mg Take 1 Univers mg chewable 5-28 11-25 tablet by it y of tablet 00:00: 05:59 mouth [place] 00 :00 daily with Medical breakfast Branch for 180 days. aspirin 81 2019- No [id number] 81mg Take 1 Univers mg chewable 5-28 11-25 tablet by it y of tablet 00:00: 05:59 mouth [place] 00 :00 daily with Medical breakfast Branch for 180 days. aspirin 81 2019- No [id number] 81mg Take 1 [facility] mg chewable 5-28 11-25 tablet by it y of tablet 00:00: 05:59 mouth [place] 00 :00 daily with Medical breakfast Branch for 180 days. aspirin 81 2019- No [id number] 81mg Take 1 [facility] mg chewable 5-28 11-25 tablet by it y of tablet 00:00: 05:59 mouth [place] 00 :00 daily with Medical breakfast Branch for 180 days. aspirin 81 2019- No [id number] 81mg Take 1 [facility] mg chewable 5-28 11-25 tablet by it y of tablet 00:00: 05:59 mouth [place] 00 :00 daily with Medical breakfast Branch for 180 days. aspirin 81 2019- No [id number] 81mg Take 1 [facility] mg chewable 5-28 11-25 tablet by it y of tablet 00:00: 05:59 mouth [place] 00 :00 daily with Medical breakfast Branch for 180 days. aspirin 81 2019- No [id number] 81mg Take 1 [facility] mg chewable 5-28 11-25 tablet by it y of tablet 00:00: 05:59 mouth [place] 00 :00 daily with Medical breakfast Branch for 180 days. aspirin 81 2019- No [id number] 81mg Take 1 [facility] mg chewable 5-28 11-25 tablet by it y of tablet 00:00: 05:59 mouth [place] 00 :00 daily with Medical breakfast Branch for 180 days. aspirin 81 2019- No [id number] 81mg Take 1 [facility] mg chewable 5-28 11-25 tablet by it y of tablet 00:00: 05:59 mouth [place] 00 :00 daily with Medical breakfast Branch for 180 days. aspirin 81 2018- 2019- No [id number] 81mg Take 1 [facility] mg chewable 5-28 11-25 tablet by it y of tablet 00:00: 05:59 mouth [place] 00 :00 daily with Medical breakfast Branch for 180 days. aspirin 81 2018- 2019- No [id number] 81mg Take 1 [facility] mg chewable 5-28 11-25 tablet by it y of tablet 00:00: 05:59 mouth [place] 00 :00 daily with Medical breakfast Branch for 180 days. insulin NPH Yes [id number] 7U inject 7 Univers and regular 5-01 Units ity of human 70-30 00:00: under the [place] 100 unit/mL 00 skin 2 Medica l (70-30) (two) Branch injection times daily before breakfast and dinner. [employer] brand insulin NPH Yes [id number] 7U inject 7 Univers and regular 5-01 Units ity of human 70-30 00:00: under the [place] 100 unit/mL 00 skin 2 Medica l (70-30) (two) Branch injection times daily before breakfast and dinner. [employer] brand insulin NPH Yes [id number] 7U inject 7 Univers and regular 5-01 Units ity of human 70-30 00:00: under the [place] 100 unit/mL 00 skin 2 Medica l (70-30) (two) Branch injection times daily before breakfast and dinner. [employer] brand insulin NPH Yes [id number] 7U inject 7 Univers and regular 5-01 Units ity of human 70-30 00:00: under the [place] 100 unit/mL 00 skin 2 Medica l (70-30) (two) Branch injection times daily before breakfast and dinner. [employer] brand insulin NPH Yes [id number] 7U inject 7 Univers and regular 5-01 Units ity of human 70-30 00:00: under the [place] 100 unit/mL 00 skin 2 Medica l (70-30) (two) Branch injection times daily before breakfast and dinner. [employer] brand insulin NPH Yes [id number] 7U inject 7 Univers and regular 5-01 Units ity of human 70-30 00:00: under the [place] 100 unit/mL 00 skin 2 Medica l (70-30) (two) Branch injection times daily before breakfast and dinner. [employer] brand insulin NPH 2018-0 Yes [id number] 7U inject 7 Univers and regular 5-01 Units ity of human 70-30 00:00: under the [place] 100 unit/mL 00 skin 2 Medica l (70-30) (two) Branch injection times daily before breakfast and dinner. [employer] brand insulin NPH 0 Yes [id number] 7U inject 7 Univers and regular 5-01 Units ity of human 70-30 00:00: under the [place] 100 unit/mL 00 skin 2 Medica l (70-30) (two) Branch injection times daily before breakfast and dinner. [employer] brand insulin NPH 0 Yes [id number] 7U inject 7 Univers and regular 5-01 Units ity of human 70-30 00:00: under the [place] 100 unit/mL 00 skin 2 Medica l (70-30) (two) Branch injection times daily before breakfast and dinner. [employer] brand insulin NPH 2018-0 Yes [id number] 7U inject 7 Univers and regular 5-01 Units ity of human 70-30 00:00: under the [place] 100 unit/mL 00 skin 2 Medica l (70-30) (two) Branch injection times daily before breakfast and dinner. [employer] brand insulin NPH 0 Yes [id number] 7U inject 7 Univers and regular 5-01 Units ity of human 70-30 00:00: under the [place] 100 unit/mL 00 skin 2 Medica l (70-30) (two) Branch injection times daily before breakfast and dinner. [employer] brand insulin NPH 2018-0 Yes [id number] 7U inject 7 Univers and regular 5-01 Units ity of human 70-30 00:00: under the [place] 100 unit/mL 00 skin 2 Medica l (70-30) (two) Branch injection times daily before breakfast and dinner. [employer] brand insulin NPH 2018-0 Yes [id number] 7U inject 7 Univers and regular 5-01 Units ity of human 70-30 00:00: under the [place] 100 unit/mL 00 skin 2 Medica l (70-30) (two) Branch injection times daily before breakfast and dinner. [employer] brand atorvastati Yes [id number] 20mg Take 1 Univers n 20 mg 2-27 tablet by ity of tablet 00:00: mouth at [place] 00 bedtime. Medical Branch atorvastati Yes [id number] 20mg Take 1 Univers n 20 mg 2-27 tablet by ity of tablet 00:00: mouth at [place] 00 bedtime. Medical Branch atorvastati Yes [id number] 20mg Take 1 Univers n 20 mg 2-27 tablet by ity of tablet 00:00: mouth at [place] 00 bedtime. Medical Branch atorvastati Yes [id number] 20mg Take 1 Univers n 20 mg 2-27 tablet by ity of tablet 00:00: mouth at [place] 00 bedtime. Medical Branch atorvastati Yes [id number] 20mg Take 1 Univers n 20 mg 2-27 tablet by ity of tablet 00:00: mouth at [place] 00 bedtime. Medical Branch atorvastati Yes [id number] 20mg Take 1 Univers n 20 mg 2-27 tablet by ity of tablet 00:00: mouth at [place] 00 bedtime. Medical Branch atorvastati Yes [id number] 20mg Take 1 Univers n 20 mg 2-27 tablet by ity of tablet 00:00: mouth at [place] [address] bedtime. Medical Branch atorvastati Yes [id number] 20mg Take 1 Univers n 20 mg 2-27 tablet by ity of tablet 00:00: mouth at [place] 00 bedtime. Medical Branch atorvastati Yes [id number] 20mg Take 1 Univers n 20 mg 2-27 tablet by ity of tablet 00:00: mouth at [place] 00 bedtime. Medical Branch atorvastati Yes [id number] 20mg Take 1 Univers n 20 mg 2-27 tablet by ity of tablet 00:00: mouth at [place] 00 bedtime. Medical Branch atorvastati Yes [id number] 20mg Take 1 Univers n 20 mg 2-27 tablet by ity of tablet 00:00: mouth at [place] [address] bedtime. Medical Branch atorvastati Yes [id number] 20mg Take 1 Univers n 20 mg 2-27 tablet by ity of tablet 00:00: mouth at [place] 00 bedtime. Medical Branch atorvastati Yes [id number] 20mg Take 1 Univers n 20 mg 2-27 tablet by ity of tablet 00:00: mouth at [place] 00 bedtime. Medical Branch amLODIPine Yes 10mg QD Take [address] [facility] (NORVASC) 3-23 by [facility] - 10 MG 19:11: daily. [facility] tablet [facility] aspirin 81 Yes 81mg QD Take [address] MG chewable 3-23 by mouth [facility] - tablet 19:11: daily. [facility] calcium Yes 1{tbl} [id number] Take [address] [facility] carbonate 3-23 [id number] tablet by [facility] - (TUMS) 500 19:11: [...] Immunizations Ordered Filled Immunization Date Status Comments [facility] e Immunization Name Name Pneumococcal 2021-10-[address] [facility] - Conjugate (Prevnar) 00:00:00 Medic [facility] 13-Valent HEP B, Adult Dosage 2020-01-11 Completed Unive rsity of 00:00:00 [facility] HEP B, Adult Dosage 2019-12-12 Completed Unive rsity of 00:00:00 [facility] PPD (TB) 2019-11-12 Completed University of 00:00:00 [facility] HEP B, Adult Dosage 2019-11-12 Completed Unive rsity of 00:00:00 [facility] PPD (TB) 2019-10-29 Completed University of 00:00:00 [facility] PPD (TB) 2019-10-24 Completed University of 00:00:00 [facility] Influenza Virus 2019-07-04 Completed Universit y of Vaccine 00:00:00 [facility] Influenza Virus 2019-02-23 Completed Universit y of Vaccine Quad .5 mL 00:00:00 [facility] 6+ MO Branch Influenza Virus 2019-02-23 Completed Universit y of Vaccine Quad .5 mL 00:00:00 [facility] 6+ MO Branch Influenza Virus 2019-02-23 Completed Universit y of Vaccine Quad .5 mL 00:00:00 [facility] 6+ MO Branch Influenza Virus 2019-02-23 Completed Universit y of Vaccine Quad .5 mL 00:00:00 [facility] 6+ MO Branch Influenza Virus 2019-02-23 Completed Universit y of Vaccine Quad .5 mL 00:00:00 [facility] 6+ MO Branch Influenza Virus 2019-02-23 Completed Universit y of Vaccine Quad .5 mL 00:00:00 [facility] 6+ MO Branch Influenza Virus 2019-02-23 Completed Universit y of Vaccine Quad .5 mL 00:00:00 [facility] 6+ MO Branch Influenza Virus 2019-02-23 Completed Universit y of Vaccine Quad .5 mL 00:00:00 [facility] 6+ MO Branch Influenza Virus 2019-02-23 Completed [...] y of Vaccine Quad .5 mL 00:00:00 [place] [facility] 6+ MO Branch Influenza Virus 2018-11-14 Completed Universit y of Vaccine Quad .5 mL 00:00:00 [place] [facility] 6+ MO Branch Influenza Virus 2018-11-14 Completed Universit y of Vaccine Quad .5 mL 00:00:00 [place] [facility] 6+ MO Branch Influenza Virus 2018-11-14 Completed Universit y of Vaccine Quad .5 mL 00:00:00 [place] [facility] 6+ MO Branch Influenza Virus 2018-11-14 Completed Universit y of Vaccine Quad .5 mL 00:00:00 [place] [facility] 6+ MO Branch Influenza Virus 2018-11-14 Completed Universit y of Vaccine Quad .5 mL 00:00:00 [place] [facility] 6+ MO Branch Influenza Virus 2018-11-14 Completed Universit y of Vaccine Quad .5 mL 00:00:00 [place] [facility] 6+ MO Branch Influenza Virus 2018-11-14 Completed Universit y of Vaccine Quad .5 mL 00:00:00 [place] [facility] IM 6+ MO Branch Influenza Virus 2018-11-14 Completed Universit y of Vaccine Quad .5 mL 00:00:00 [place] [facility] IM 6+ MO Branch Influenza Virus 2018-11-14 Completed Universit y of Vaccine Quad .5 mL 00:00:00 [place] [facility] IM 6+ MO Branch Influenza Virus 2018-11-14 Completed Universit y of Vaccine Quad .5 mL 00:00:00 [place] [facility] IM 6+ MO Branch Influenza Virus 2018-11-14 Completed Universit y of Vaccine Quad .5 mL 00:00:00 [place] [facility] IM 6+ MO Branch Influenza Virus 2018-11-14 Completed Universit y of Vaccine Quad .5 mL 00:00:00 [place] [facility] 6+ MO Branch Influenza Virus 2018-11-14 Completed Universit y of Vaccine Quad .5 mL 00:00:00 [place] [facility] IM 6+ MO Branch Influenza Virus 2018-11-14 Completed Universit y of Vaccine Quad .5 mL 00:00:00 [place] [facility] IM 6+ MO Branch Influenza Virus 2018-11-14 Completed Universit y of Vaccine Quad .5 mL 00:00:00 [place] [facility] IM 6+ MO Branch Influenza Virus 2018-11-14 Completed Universit y of Vaccine Quad .5 mL 00:00:00 [place] [facility] IM 6+ MO Branch Influenza Virus 2018-11-14 Completed Universit y of Vaccine Quad .5 mL 00:00:00 [place] [facility] 6+ MO Branch Influenza Virus 2018-11-14 Completed Universit y of Vaccine Quad .5 mL 00:00:00 [place] [facility] 6+ MO Branch Influenza Virus 2018-11-14 Completed Universit y of Vaccine Quad .5 mL 00:00:00 [place] [facility] 6+ MO Branch Influenza Virus 2018-11-14 Completed Universit y of Vaccine Quad .5 mL 00:00:00 [place] [facility] 6+ MO Branch Influenza Virus 2018-11-14 Completed Universit y of Vaccine Quad .5 mL 00:00:00 [place] [facility] 6+ MO Branch Influenza Virus 2018-11-14 Completed Universit y of Vaccine Quad .5 mL 00:00:00 [facility] 6+ MO Branch Influenza Virus 2018-11-14 Completed Universit y of Vaccine Quad .5 mL 00:00:00 [place] [facility] IM 6+ MO Branch Influenza Virus 2018-11-14 Completed Universit y of Vaccine Quad .5 mL 00:00:00 [place] [facility] IM 6+ MO Branch Influenza Virus 2018-11-14 Completed Universit y of Vaccine Quad .5 mL 00:00:00 [place] [facility] IM 6+ MO Branch Influenza Virus 2018-11-14 Completed Universit y of Vaccine Quad .5 mL 00:00:00 [place] [facility] IM 6+ MO Branch Influenza Virus 2018-11-14 Completed Universit y of Vaccine Quad .5 mL 00:00:00 [place] [facility] IM 6+ MO Branch Influenza Virus 2018-11-14 Completed Universit y of Vaccine Quad .5 mL 00:00:00 [place] [facility] IM 6+ MO Branch Influenza Virus 2018-11-14 Completed Universit y of Vaccine Quad .5 mL 00:00:00 [place] [facility] IM 6+ MO Branch Influenza Virus 2018-11-14 Completed Universit y of Vaccine Quad .5 mL 00:00:00 [facility] IM 6+ MO Branch Pneumococcal 2018-08-10 Completed [...] y of Vaccine Quad .5 mL 00:00:00 [place] [facility] IM 6+ MO Branch Influenza Virus 2017-06-20 Completed Universit y of Vaccine Quad IM 3+ 00:00:00 [facility] Branch Influenza Virus 2017-06-20 Completed Universit y of Vaccine Quad IM 3+ 00:00:00 [facility] Branch Influenza Virus 2017-06-20 Completed Universit y of Vaccine Quad IM 3+ 00:00:00 [facility] Influenza Virus 2017-06-20 Completed Universit y of Vaccine Quad IM 3+ 00:00:00 [facility] Influenza Virus 2017-06-20 Completed Universit y of Vaccine Quad IM 3+ 00:00:00 [facility] Influenza Virus 2017-06-20 Completed Universit y of Vaccine Quad IM 3+ 00:00:00 [facility] Influenza Virus 2017-06-20 Completed Universit y of Vaccine Quad IM 3+ 00:00:00 [facility] Influenza Virus 2017-06-20 Completed Universit y of Vaccine Quad IM 3+ 00:00:00 [facility] Influenza Virus 2017-06-20 Completed Universit y of Vaccine Quad IM 3+ 00:00:00 [facility] Influenza Virus 2017-06-20 Completed Universit y of Vaccine Quad IM 3+ 00:00:00 [facility] Influenza Virus 2017-06-20 Completed Universit y of Vaccine Quad IM 3+ 00:00:00 [facility] Influenza Virus 2017-06-20 Completed Universit y of Vaccine Quad IM 3+ 00:00:00 [facility] Influenza Virus 2017-06-20 Completed Universit y of Vaccine Quad IM 3+ 00:00:00 [facility] Influenza Virus 2017-06-20 Completed Universit y of Vaccine Quad IM 3+ 00:00:00 [facility] Influenza Virus 2017-06-20 Completed Universit y of Vaccine Quad IM 3+ 00:00:00 [facility] Influenza Virus 2016-12-03 Completed Universit y of Vaccine 00:00:00 [facility] Influenza Three-TIV 2016-12-03 [facility] YR 00:00:00 [facility] Influenza Three-TIV 2016-12-03 Completed [facility] PF 5+ YR 00:00:00 [facility] Influenza Virus 2016-06-24 Completed Universit y of Vaccine Quad IM 3+ 00:00:00 [facility] Influenza Virus 2016-06-24 Completed Universit y of Vaccine Quad IM 3+ 00:00:00 [facility] Influenza Virus 2016-06-24 Completed Universit y of Vaccine Quad IM 3+ 00:00:00 [facility] Influenza Virus 2016-06-24 Completed Universit y of Vaccine Quad IM 3+ 00:00:00 [facility] Influenza Virus 2016-06-24 Completed Universit y of Vaccine Quad IM 3+ 00:00:00 [facility] Influenza Virus 2016-06-24 Completed Universit y of Vaccine Quad IM 3+ 00:00:00 [facility] Influenza Virus 2016-06-24 Completed Universit y of Vaccine Quad IM 3+ 00:00:00 [facility] Influenza Virus 2016-06-24 Completed Universit y of Vaccine Quad IM 3+ 00:00:00 [facility] Influenza Virus 2016-06-24 Completed Universit y of Vaccine Quad IM 3+ 00:00:00 [facility] Influenza Virus 2016-06-24 Completed Universit y of Vaccine Quad IM 3+ 00:00:00 [facility] Influenza Virus 2016-06-24 Completed Universit y of Vaccine Quad IM 3+ 00:00:00 [facility] Influenza Virus 2016-06-24 Completed Universit y of Vaccine Quad IM 3+ 00:00:00 [facility] Influenza Virus 2016-06-24 Completed Universit y of Vaccine Quad IM 3+ 00:00:00 [facility] Influenza Virus 2016-06-24 Completed Universit y of Vaccine Quad IM 3+ 00:00:00 [facility] Influenza Virus 2016-06-24 Completed Universit y of Vaccine Quad IM 3+ 00:00:00 [facility] Pneumococcal 2016-01-25 Completed University o f Polysaccharide, 00:00:00 [place] [facility] ical PPSV23 (PNEUMOVAX) Branch Influenza Virus 2016-01-25 Completed Universit y of Vaccine Quad IM 3+ 00:00:00 [facility] Pneumococcal 2016-01-25 Completed University o f Polysaccharide, 00:00:00 [place] [facility] ical PPSV23 (PNEUMOVAX) Branch Influenza Virus 2016-01-25 Completed Universit y of Vaccine Quad IM 3+ 00:00:00 [facility] Pneumococcal 2016-01-25 Completed University o f Polysaccharide, 00:00:00 [place] [facility] ical PPSV23 (PNEUMOVAX) Branch Influenza Virus 2016-01-25 Completed Universit y of Vaccine Quad IM 3+ 00:00:00 [facility] Pneumococcal 2016-01-25 Completed University o f Polysaccharide, 00:00:00 [place] [facility] ical PPSV23 (PNEUMOVAX) Branch Influenza Virus 2016-01-25 Completed Universit y of Vaccine Quad IM 3+ 00:00:00 [facility] Pneumococcal 2016-01-25 Completed University o f Polysaccharide, 00:00:00 [place] [facility] ical PPSV23 (PNEUMOVAX) Branch Influenza Virus 2016-01-25 Completed Universit y of Vaccine Quad IM 3+ 00:00:00 [facility] Pneumococcal 2016-01-25 Completed University o f Polysaccharide, 00:00:00 [place] [facility] PPSV23 (PNEUMOVAX) Branch Influenza Virus 2016-01-25 Completed Universit y of Vaccine Quad IM 3+ 00:00:00 [facility] Pneumococcal 2016-01-25 Completed University o f Polysaccharide, 00:00:00 [place] [facility] PPSV23 (PNEUMOVAX) Branch Influenza Virus 2016-01-25 Completed Universit y of Vaccine Quad IM 3+ 00:00:00 [facility] Pneumococcal 2016-01-25 Completed University o f Polysaccharide, 00:00:00 [place] [facility] PPSV23 (PNEUMOVAX) Branch Influenza Virus 2016-01-25 Completed Universit y of Vaccine Quad IM 3+ 00:00:00 [facility] Pneumococcal 2016-01-25 Completed University o f Polysaccharide, 00:00:00 [place] [facility] ical PPSV23 (PNEUMOVAX) Branch Influenza Virus 2016-01-25 Completed Universit y of Vaccine Quad IM 3+ 00:00:00 [facility] Pneumococcal 2016-01-25 Completed University o f Polysaccharide, 00:00:00 [place] [facility] ical PPSV23 (PNEUMOVAX) Branch Influenza Virus 2016-01-25 Completed Universit y of Vaccine Quad IM 3+ 00:00:00 [facility] Pneumococcal 2016-01-25 Completed University o f Polysaccharide, 00:00:00 [place] [facility] PPSV23 (PNEUMOVAX) Branch Influenza Virus 2016-01-25 Completed Universit y of Vaccine Quad IM 3+ 00:00:00 [facility] Pneumococcal 2016-01-25 Completed University o f Polysaccharide, 00:00:00 [place] [facility] ical PPSV23 (PNEUMOVAX) Branch Influenza Virus 2016-01-25 Completed Universit y of Vaccine Quad IM 3+ 00:00:00 [facility] Pneumococcal 2016-01-25 Completed University o f Polysaccharide, 00:00:00 [place] [facility] PPSV23 (PNEUMOVAX) Branch Influenza Virus 2016-01-25 Completed Universit y of Vaccine Quad IM 3+ 00:00:00 [facility] Branch Pneumococcal 2016-01-25 Completed University o f Polysaccharide, 00:00:00 [place] [facility] PPSV23 (PNEUMOVAX) Branch Influenza Virus 2016-01-25 Completed Universit y of Vaccine Quad IM 3+ 00:00:00 [facility] Branch Pneumococcal 2016-01-25 Completed University o f Polysaccharide, 00:00:00 [place] [facility] ical PPSV23 (PNEUMOVAX) Branch Influenza Virus 2016-01-25 Completed Universit y of Vaccine Quad IM 3+ 00:00:00 [facility] Vital Signs Vital Name Observation Time Observation Value Comments Source WEIGHT 2021-10-26 15:36:00 62.5 kg WEIGHT 2021-10-25 05:14:00 62.5 kg WEIGHT 2021-10-26 15:36:00 62.5 kg WEIGHT 2021-10-25 05:14:00 62.5 kg Systolic blood 2019-06-06 19:07:00 161 mm[Hg] Univer sity of pressure [facility] Diastolic blood 2019-06-06 19:07:00 92 mm[Hg] Unive rsity of [facility] Heart rate 2019-06-06 19:07:00 79 /min [facility] Body temperature 2019-06-06 19:07:[address] [facility] Respiratory rate 2019-06-06 19:07:00 16 /min [facility] Body weight 2019-06-06 19:07:00 51.2 kg [facility] BMI 2019-06-06 19:07:00 17.16 kg/m2 [facility] Oxygen saturation in 2019-06-06 16:39:00 99 /min [facility] Arterial blood by [facility] Pulse oximetry Branch Body height 2019-06-05 13:05:00 172.7 cm [facility] Systolic blood 2019-06-06 19:07:00 161 mm[Hg] Univer sity of pressure [facility] Diastolic blood 2019-06-06 19:07:00 92 mm[Hg] Unive rsity of [facility] Heart rate 2019-06-06 19:07:00 79 /min [facility] Body temperature 2019-06-06 19:07:00 37.22 Nickie [facility] [place] [facility] Respiratory rate 2019-06-06 19:07:00 16 /min Univ ers[facility] [place] [facility] Body weight 2019-06-06 19:07:00 51.2 kg [facility]i [facility] [place] [facility] BMI 2019-06-06 19:07:00 17.16 kg/m2 [facility]i ty of [place] [facility] Oxygen saturation in 2019-06-06 16:39:00 99 /min University of Arterial blood by [place] Pulse oximetry Branch Body height 2019-06-05 13:05:00 172.7 cm Universi ty of [place] [facility] Systolic blood 2019-06-01 21:16:00 153 mm[Hg] Univer sity of pressure [place] [facility] Diastolic blood 2019-06-01 21:16:00 85 mm[Hg] Unive rsity of pressure [place] [facility] Heart rate 2019-06-01 21:16:00 102 /min [facility]i [facility] [place] [facility] Body temperature 2019-06-01 21:16:00 36.78 Nickie Univ ersity of [place] [facility] Respiratory rate 2019-06-01 21:16:00 18 /min Univ ers[facility] [place] [facility] Body weight 2019-06-01 21:16:00 49.5 kg [facility] [place] [facility] BMI 2019-06-01 21:16:00 16.59 kg/m2 [facility] [place] [facility] Oxygen saturation in 2019-06-01 16:13:00 100 /min University of Arterial blood by [facility] Pulse oximetry Branch Body height 2019-06-01 15:02:00 172.7 cm Universi ty [facility] [place] [facility] Systolic blood 2019-06-01 21:16:00 153 mm[Hg] Univer sity of pressure [place] [facility] Diastolic blood 2019-06-01 21:16:00 85 mm[Hg] Unive rsity of pressure [place] [facility] Heart rate 2019-06-01 21:16:00 102 /min [facility]i [facility] [place] [facility] Body temperature 2019-06-01 21:16:00 36.78 Nickie Univ ers[facility] of [place] [facility] Respiratory rate 2019-06-01 21:16:00 18 /min Univ ersity of [place] [facility] Body weight 2019-06-01 21:16:00 49.5 kg [facility] [place] [facility] BMI 2019-06-01 21:16:00 16.59 kg/m2 [facility] [place] [facility] Oxygen saturation in 2019-06-01 16:13:00 100 /min University of Arterial blood by [facility] Pulse oximetry Branch Body height 2019-06-01 15:02:00 172.7 cm [facility] [place] [facility] Systolic blood 2019-05-29 01:00:00 151 mm[Hg] Univer sity of pressure [place] [facility] Diastolic blood 2019-05-29 01:00:00 96 mm[Hg] Unive rsity of pressure [place] [facility] Heart rate 2019-05-29 01:00:00 88 /min [facility] [place] [facility] Body temperature 2019-05-29 01:00:00 37 Nickie Univ ers[facility] of [place] [facility] Respiratory rate 2019-05-29 01:00:00 20 /min Univ ers[facility] [place] [facility] Oxygen saturation in 2019-05-29 01:00:00 99 /min University of Arterial blood by [facility] Pulse oximetry Branch Body weight 2019-05-29 00:00:00 49.5 kg [facility] [place] [facility] BMI 2019-05-29 00:00:00 17.61 kg/m2 [facility] [place] [facility] Body height 2019-05-28 15:30:00 167.6 cm [facility] [place] [facility] Systolic blood 2019-05-29 01:00:00 151 mm[Hg] Univer sity of pressure [place] [facility] Diastolic blood 2019-05-29 01:00:00 96 mm[Hg] Unive rsity of pressure [place] [facility] Heart rate 2019-05-29 01:00:00 88 /min [facility] [place] [facility] Body temperature 2019-05-29 01:00:00 37 Nickie Univ ersity of [place] [facility] Respiratory rate 2019-05-29 01:00:00 20 /min Univ ersity of [place] [facility] Oxygen saturation in 2019-05-29 01:00:00 99 /min University of Arterial blood by [facility] Pulse oximetry Branch Body weight 2019-05-29 00:00:00 49.5 kg [facility] [place] [facility] BMI 2019-05-29 00:00:00 17.61 kg/m2 [facility] [place] [facility] Body height 2019-05-28 15:30:00 167.6 cm [facility] [place] [facility] Systolic blood 2019-05-24 20:00:00 140 mm[Hg] Univer sity of pressure [place] [facility] Diastolic blood 2019-05-24 20:00:00 75 mm[Hg] Unive rsity of pressure [place] [facility] Heart rate 2019-05-24 20:00:00 99 /min [facility] [place] [facility] Body temperature 2019-05-24 20:00:00 36.78 Nickie Univ ers[facility] of [place] [facility] Respiratory rate 2019-05-24 20:00:00 18 /min Univ ersity of [place] [facility] Body height 2019-05-24 14:30:00 172.7 cm [facility]i [facility] [place] [facility] Oxygen saturation in 2019-05-24 13:56:00 100 /min University of Arterial blood by [employer] [facility] Pulse oximetry Branch Body weight 2019-05-24 12:41:00 53.524 kg [facility] [place] [facility] BMI 2019-05-24 12:41:00 17.94 kg/m2 [facility] [place] [facility] Systolic blood 2019-05-24 20:00:00 140 mm[Hg] Univer sity of pressure [place] [facility] Diastolic blood 2019-05-24 20:00:00 75 mm[Hg] Unive rsity of pressure [place] [facility] Heart rate 2019-05-24 20:00:00 99 /min [facility]i [facility] [place] [facility] Body temperature 2019-05-24 20:00:00 36.78 Nickie Univ ers[facility] [place] [facility] Respiratory rate 2019-05-24 20:00:00 18 /min Univ ersity of [place] [facility] Body height 2019-05-24 14:30:00 172.7 cm [facility]i [facility] [place] [facility] Oxygen saturation in 2019-05-24 13:56:00 100 /min University of Arterial blood by [place] [employer] [facility] Pulse oximetry Branch Body weight 2019-05-24 12:41:00 53.524 kg [facility]i [facility] [place] [facility] BMI 2019-05-24 12:41:00 17.94 kg/m2 [facility] [place] [facility] Systolic blood 2019-05-20 23:03:00 134 mm[Hg] Univer sity of pressure [place] [facility] Diastolic blood 2019-05-20 23:03:00 81 mm[Hg] Unive rsity of pressure [place] [facility] Heart rate 2019-05-20 23:03:00 101 /min [facility] [place] [facility] Body temperature 2019-05-20 23:03:00 37.06 Nickie [facility] [place] [facility] Respiratory rate 2019-05-20 23:03:00 18 /min Univ [facility] [place] [facility] Body weight 2019-05-20 23:03:00 53.978 kg [facility] [place] [facility] BMI 2019-05-20 23:03:00 19.21 kg/m2 [facility] [place] [facility] Oxygen saturation in 2019-05-20 17:00:00 98 /min University of Arterial blood by [place] Pulse oximetry Branch Body height 2019-05-20 14:57:00 167.6 cm [facility] [place] [facility] Systolic blood 2019-05-20 23:03:00 134 mm[Hg] Univer sity of pressure [place] [facility] Diastolic blood 2019-05-20 23:03:00 81 mm[Hg] Unive rsity of [facility] [place] [facility] Heart rate 2019-05-20 23:03:00 101 /min [facility] [place] [facility] Body temperature 2019-05-20 23:03:00 37.06 Nickie [facility] [place] [facility] Respiratory rate 2019-05-20 23:03:00 18 /min Univ [facility] [place] [facility] Body weight 2019-05-20 23:03:00 53.978 kg [facility] [place] [facility] BMI 2019-05-20 23:03:00 19.21 kg/m2 [facility] [place] [facility] Oxygen saturation in 2019-05-20 17:00:00 98 /min University of Arterial blood by [place] [facility] Pulse oximetry Branch Body height 2019-05-20 14:57:00 167.6 cm [facility] [place] [facility] Systolic blood 2019-05-15 21:00:00 128 mm[Hg] Univer sity of [facility] [place] [facility] Diastolic blood 2019-05-15 21:00:00 86 mm[Hg] Unive rsity of [facility] [place] [facility] Heart rate 2019-05-15 21:00:00 101 /min [facility] [place] [facility] Body temperature 2019-05-15 21:00:00 37.17 Nickie [facility] [place] [facility] Respiratory rate 2019-05-15 21:00:00 16 /min Univ ersity of [place] [facility] Oxygen saturation in 2019-05-15 21:00:00 99 /min University of Arterial blood by [facility] maddie Pulse oximetry Branch Body weight 2019-05-15 20:48:00 57 kg [facility] [place] [facility] BMI 2019-05-15 20:48:00 19.11 kg/m2 [facility] [place] [facility] Systolic blood 2019-05-15 21:00:00 128 mm[Hg] Univer sity of pressure [place] [facility] Diastolic blood 2019-05-15 21:00:00 86 mm[Hg] Unive rsity of pressure [place] [facility] Heart rate 2019-05-15 21:00:00 101 /min [facility] [place] [facility] Body temperature 2019-05-15 21:00:00 37.17 Nickie [facility] [place] [facility] Respiratory rate 2019-05-15 21:00:00 16 /min Univ ersity of [place] [facility] Oxygen saturation in 2019-05-15 21:00:00 99 /min University of Arterial blood by [facility] Pulse oximetry Branch Body weight 2019-05-15 20:48:00 57 kg [facility] [place] [facility] BMI 2019-05-15 20:48:00 19.11 kg/m2 [facility] [place] [facility] Systolic blood 2019-05-11 18:25:00 134 mm[Hg] Univer sity of pressure [facility] Diastolic blood 2019-05-11 18:25:00 76 mm[Hg] Unive rsity of pressure [facility] Heart rate 2019-05-11 18:25:00 99 /min [facility] Body temperature 2019-05-11 18:25:00 36.67 Nickie [facility] Respiratory rate 2019-05-11 18:25:00 18 /min [facility] Body weight 2019-05-11 18:25:00 56 kg [facility] BMI 2019-05-11 18:25:00 18.77 kg/m2 [facility] Oxygen saturation in 2019-05-11 13:00:00 100 /min [facility] Arterial blood by [facility] maddie Pulse oximetry Branch Body height 2019-05-09 14:45:00 172.7 cm [facility] Systolic blood 2019-05-11 18:25:00 134 mm[Hg] Univer sity of pressure [facility] Diastolic blood 2019-05-11 18:25:00 76 mm[Hg] Unive rsity of pressure [facility] Heart rate 2019-05-11 18:25:00 99 /min [facility] Body temperature 2019-05-11 18:25:00 36.67 Nickie [facility] Respiratory rate 2019-05-11 18:25:00 18 /min [facility] Body weight 2019-05-11 18:25:00 56 kg [facility] BMI 2019-05-11 18:25:00 18.77 kg/m2 [facility] Oxygen saturation in 2019-05-11 13:00:00 100 /min [facility] Arterial blood by [facility] Pulse oximetry Branch Body height 2019-05-09 14:45:00 172.7 cm [facility] Systolic blood 2019-05-07 12:31:00 147 mm[Hg] Univer sity of pressure [facility] Diastolic blood 2019-05-07 12:31:00 82 mm[Hg] Unive rsity of pressure [facility] Heart rate 2019-05-07 12:31:00 73 /min [facility] Respiratory rate 2019-05-07 12:31:00 16 /min [facility] Oxygen saturation in 2019-05-07 12:31:00 100 /min [facility] blood by [facility] Pulse oximetry Branch Body temperature 2019-05-07 11:40:12 36.22 Nickie [facility] Body weight 2019-05-07 11:37:58 53.524 kg [facility] BMI 2019-05-07 11:37:58 19.05 kg/m2 [facility] Systolic blood 2019-05-07 12:31:00 147 mm[Hg] Univer sity of pressure [facility] Diastolic blood 2019-05-07 12:31:00 82 mm[Hg] [facility] Heart rate 2019-05-07 12:31:00 73 /min [facility] Respiratory rate 2019-05-07 12:31:00 16 /min [facility] Oxygen saturation in 2019-05-07 12:31:00 100 /min [facility] blood by [facility] maddie Pulse oximetry Branch Body temperature 2019-05-07 11:40:12 36.22 Nickie [facility] Body weight 2019-05-07 11:37:58 53.524 kg [facility] BMI 2019-05-07 11:37:58 19.05 kg/m2 [facility] Systolic blood 2019-05-04 00:12:00 158 mm[Hg] Univer sity of pressure [facility] Diastolic blood 2019-05-04 00:12:00 94 mm[Hg] Unive rsity of pressure [facility] Heart rate 2019-05-04 00:12:00 103 /min [facility] Body temperature 2019-05-03 23:30:00 36.5 Nickie [facility] Respiratory rate 2019-05-03 23:30:00 18 /min [facility] Oxygen saturation in 2019-05-03 17:00:00 96 /min [facility] Arterial blood by [facility] Pulse oximetry Branch Body weight 2019-05-03 14:18:00 53.524 kg [facility] BMI 2019-05-03 14:18:00 19.05 kg/m2 [facility] Body height 2019-05-03 12:06:00 167.6 cm [facility] Systolic blood 2019-05-04 00:12:00 158 mm[Hg] Univer sity of pressure [facility] Diastolic blood 2019-05-04 00:12:00 94 mm[Hg] Unive rsity of pressure [facility] Heart rate 2019-05-04 00:12:00 103 /min [facility] Body temperature 2019-05-03 23:30:00 36.5 Nickie [facility] Respiratory rate 2019-05-03 23:30:00 18 /min [facility] Oxygen saturation in 2019-05-03 17:00:00 96 /min [facility] Arterial blood by [facility] Pulse oximetry Branch Body weight 2019-05-03 14:18:00 53.524 kg [facility] BMI 2019-05-03 14:18:00 19.05 kg/m2 [facility] Body height 2019-05-03 12:06:00 167.6 cm [facility] Systolic blood 2019-04-29 19:06:00 187 mm[Hg] Univer sity of pressure [facility] Diastolic blood 2019-04-29 19:06:00 101 mm[Hg] Unive rsity of pressure [facility] Heart rate 2019-04-29 19:06:00 92 /min [facility] Body temperature 2019-04-29 14:30:00 36.44 Nickie [facility] Respiratory rate 2019-04-29 14:30:00 18 /min [facility] Body weight 2019-04-29 14:30:00 55.792 kg [facility] BMI 2019-04-29 14:30:00 18.70 kg/m2 [facility] Oxygen saturation in 2019-04-29 12:59:00 100 /min [facility] blood by [place] Pulse oximetry Branch Body height 2019-04-29 12:55:00 172.7 cm [facility] Systolic blood 2019-04-29 19:06:00 187 mm[Hg] Univer sity of pressure [facility] Diastolic blood 2019-04-29 19:06:00 101 mm[Hg] Unive rsity of pressure [facility] Heart rate 2019-04-29 19:06:00 92 /min [facility] Body temperature 2019-04-29 14:30:00 36.44 Nickie [facility] Respiratory rate 2019-04-29 14:30:00 18 /min [facility] Body weight 2019-04-29 14:30:00 55.792 kg [facility] BMI 2019-04-29 14:30:00 18.70 kg/m2 [facility] Oxygen saturation in 2019-04-29 12:59:00 100 /min [facility] Arterial blood by [employer] maddie Pulse oximetry Branch Body height 2019-04-29 12:55:00 172.7 cm [facility] Systolic blood 2019-04-24 19:21:00 184 mm[Hg] Univer sity of pressure [facility] Diastolic blood 2019-04-24 19:21:00 91 mm[Hg] Unive rsity of [facility] Heart rate 2019-04-24 19:21:00 98 /min [facility] Body temperature 2019-04-24 19:21:00 36.78 Nickie [facility] Respiratory rate 2019-04-24 19:21:00 18 /min [facility] Body weight 2019-04-24 19:21:00 52.5 kg [facility] BMI 2019-04-24 19:21:00 17.60 kg/m2 [facility] Oxygen saturation in 2019-04-24 14:33:00 100 /min [facility]terial blood by [facility] maddie Pulse oximetry Branch Body height 2019-04-24 12:33:00 172.7 cm [facility] Systolic blood 2019-04-24 19:21:00 184 mm[Hg] Univer sity of pressure [facility] Diastolic blood 2019-04-24 19:21:00 91 mm[Hg] Unive rsity of [facility] Heart rate 2019-04-24 19:21:00 98 /min [facility] Body temperature 2019-04-24 19:21:00 36.78 Nickie [facility] Respiratory rate 2019-04-24 19:21:00 18 /min [facility] Body weight 2019-04-24 19:21:00 52.5 kg [facility] BMI 2019-04-24 19:21:00 17.60 kg/m2 [facility] Oxygen saturation in 2019-04-24 14:33:00 100 /min [facility] blood by [facility] Pulse oximetry Branch Body height 2019-04-24 12:33:00 172.7 cm [facility] Systolic blood 2019-04-21 01:25:00 157 mm[Hg] Univer [facility]ity [facility] Diastolic blood 2019-04-21 01:25:00 85 mm[Hg] Unive rsity of [facility] Heart rate 2019-04-21 01:25:00 102 /min [facility] Body temperature 2019-04-21 01:25:00 36.61 Nickie [facility] Respiratory rate 2019-04-21 01:25:00 18 /min [facility] Body weight 2019-04-21 01:25:00 49.5 kg [facility] BMI 2019-04-21 01:25:00 16.59 kg/m2 [facility] Oxygen saturation in 2019-04-20 16:35:00 99 /min [facility] blood by [facility] Pulse oximetry Branch Body height 2019-04-20 12:19:00 172.7 cm [facility] Systolic blood 2019-04-21 01:25:00 157 mm[Hg] Univer sity of pressure [facility] Diastolic blood 2019-04-21 01:25:00 85 mm[Hg] Unive rsity of pressure [facility] Heart rate 2019-04-21 01:25:00 102 /min [facility] Body temperature 2019-04-21 01:25:00 36.61 Nickie [facility] Respiratory rate 2019-04-21 01:25:00 18 /min [facility] Body weight 2019-04-21 01:25:00 49.5 kg [facility] BMI 2019-04-21 01:25:00 16.59 kg/m2 [facility] Oxygen saturation in 2019-04-20 16:35:00 99 /min [facility] blood by [facility] Pulse oximetry Branch Body height 2019-04-20 12:19:00 172.7 cm [facility] Systolic blood 2019-04-15 20:45:00 179 mm[Hg] Univer sity of pressure [facility] Diastolic blood 2019-04-15 20:45:00 115 mm[Hg] Unive rsity of pressure [facility] Heart rate 2019-04-15 20:45:00 102 /min [facility] Body temperature 2019-04-15 20:45:00 36.17 Nickie [facility] Respiratory rate 2019-04-15 20:45:00 18 /min [facility] Body weight 2019-04-15 20:45:00 53 kg [facility] BMI 2019-04-15 20:45:00 17.77 kg/m2 [facility] Oxygen saturation in 2019-04-15 13:00:00 100 /min [facility]terial blood by [facility] Pulse oximetry Branch Body height 2019-04-15 12:45:00 172.7 cm Universi ty [facility] Systolic blood 2019-04-15 20:45:00 179 mm[Hg] Univer sity of pressure [facility] Diastolic blood 2019-04-15 20:45:00 115 mm[Hg] Unive rsity of [facility] Heart rate 2019-04-15 20:45:00 102 /min Universi [facility] Body temperature 2019-04-15 20:45:[address] [facility] Respiratory rate 2019-04-15 20:45:00 18 /min [facility] Body weight 2019-04-15 20:45:00 [facility]-15 20:45:00 17.77 kg/m2 [facility] Oxygen saturation in 2019-04-15 13:00:00 100 /min [facility] Arter[facility] blood by [facility] Pulse oximetry Branch Body height 2019-04-15 12:45:00 172.7 cm [facility] Systolic blood 2021-10-26 19:45:00 131 mm[Hg] [facility] Diastolic blood 2021-10-26 19:45:00 82 mm[Hg] [facility] Heart rate 2021-10-26 19:45:00 90 /min [facility] Body temperature 2021-10-26 19:45:00 35.78 Nickie [facility] Respiratory rate 2021-10-26 19:45:00 20 /min [facility] Oxygen saturation in 2021-10-26 19:45:00 96 /min [facility] - Arterial blood by Medical nter Pulse oximetry Body weight 2021-10-26 18:35:00 60.5 kg [facility] BMI 2021-10-26 18:35:00 21.53 kg/m2 [facility] Procedures Procedure Date / Time Performing Clinician Source Performed POCT-GLUCOSE METER 2021-10-26 Lupe Tierney [facility] - 20:56:00 [facility] POCT-GLUCOSE METER 2021-10-26 Gadicherla, [facility]pe [facility] - 17:38:00 [facility] BASIC METABOLIC PANEL 2021-10-26 Familia [address]t Beltran [facility] - (7[facility] 16:19:00 [facility] HEMODIALYSIS INPATIENT 2021-10-[address] [facility] - 15:52:22 [facility] PTH, INTACT 2021-10-26 Worah, Junior [facility] - 15:44:00 [facility] MAGNESIUM 2021-10-26 Familia Chet Beltran [facility] - 15:43:00 [facility] PHOSPHORUS 2021-10-[address] [facility] - 15:43:00 [facility] HEPATITIS B SURFACE 2021-10-[address] [facility] - ANTIGEN 15:43:00 [facility] CBC W/PLT COUNT & AUTO 2021-10-[address] [facility] - DIFFERENTIAL 15:43:00 [facility] CBC W/PLT COUNT & AUTO 2021-10-26 Familia Chet Beltran [facility] - DIFFERENTIAL 15:43:00 [facility] POCT-GLUCOSE METER 2021-10-26 Gadicherla, Lupe [facility] - 12:13:00 [facility] POCT-GLUCOSE METER 2021-10-26 Gadicherla, Lupe [facility] - 08:37:00 [facility] POCT-GLUCOSE METER 2021-10-25 Gadicherla, Lupe [facility] - 20:41:00 [facility] POCT-GLUCOSE METER 2021-10-25 Gadicherla, Lupe [facility] - 18:11:00 [facility] POCT-GLUCOSE METER 2021-10-25 Gadicherla, Lupe [facility] - 12:59:00 [facility] POCT-GLUCOSE METER 2021-10-25 Gadicherla, Lupe [facility] - 12:30:00 [facility] POCT-GLUCOSE METER 2021-10-25 Gadicherla, Lupe [facility] - 07:49:00 [facility] CBC W/PLT COUNT & AUTO 2021-10-[address] [facility] - DIFFERENTIAL 05:11:00 [facility] (CELLAVISION MANUAL 2021-10-[address] [facility] - DIFF) 05:11:00 [facility] CBC W/PLT COUNT & AUTO 2021-10-[address] [facility] - DIFFERENTIAL 05:11:00 [facility] BASIC METABOLIC PANEL 2021-10-25 Che[facility]weeney [facility] - (7) 05:11:00 [facility] MAGNESIUM 2021-10-[address] [facility] - 05:11:00 [facility] PHOSPHORUS 2021-10-[address] [facility] - 05:11:00 [facility] PROTHROMBIN TIME/INR 2021-10-25 Chet Sweeney [facility] - 05:11:00 [facility] KETONE, BLOOD 2021-10-[address] [facility] - 05:11:00 [facility] POCT-GLUCOSE METER 2021-10-25 hCet Sweeney [facility] - 01:57:00 [facility] CBC W/PLT COUNT & AUTO 2021-10-[address] [facility] - DIFFERENTIAL 21:01:00 [facility] (CELLAVISION MANUAL 2021-10-[address] [facility] - DIFF) 21:01:00 [facility] CBC W/PLT COUNT & AUTO 2021-10-[address] [facility] - DIFFERENTIAL 21:01:00 [facility] COMPREHENSIVE METABOLIC 2021-10-[address] [facility] - PANEL 21:01:00 [facility] MAGNESIUM 2021-10-[address] [facility] - 21:01:00 [facility] [place] PHOSPHORUS 2021-10-[address] [facility] - 21:01:00 [facility] Center PROTHROMBIN TIME/INR 2021-10-24 Chet Sweeney [facility] - 21:01:00 [facility] LACTIC ACID, VENOUS 2021-10-[address] [facility] - 21:01:00 [facility] B-TYPE NATRIURETIC 2021-10-24 Chet Sweeney [facility] - FACTOR (BNP) 21:01:00 [facility] TSH/FREE T4 IF INDICATED 2021-10-[address] [facility] - 21:01:00 [facility] PROCALCITONIN 2021-10-[address] [facility] - 21:01:00 [facility] POCT-GLUCOSE METER 2021-10-[address]ween[address] [facility] - 20:32:00 [facility] POCT-GLUCOSE METER 2021-10-[address] [facility] - 18:27:00 [facility] REPORT OF PROCEDURE - 2021-10-24 Provider, Jose Salcedo - ENDOSCOPY SCAN 00:00:00 [facility] [id number] 2021-01-23 ENCPL 00:00:00 [id number] 2021-01-23 ENCPL 00:00:00 [id number] 2021-01-23 ENCPL 00:00:00 4G6H14I 2021-01-23 ENCPL 00:00:00 6C6R22X 2021-01-23 ENCPL 00:00:00 6O1T20Z 2021-01-23 ENCPL 00:00:00 4E0U14A 2021-01-23 ENCPL 00:00:00 1U8L12Q 2021-01-23 ENCPL 00:00:00 2U9L50J 2021-01-23 ENCPL 00:00:00 0S3X32B 2021-01-23 ENCPL 00:00:00 4O6J75B 2021-01-23 ENCPL 00:00:00 3H5M00W 2021-01-23 ENCPL 00:00:00 7N3Q33Y 2021-01-23 ENCPL 00:00:00 7C8Q79Q 2021-01-23 ENCPL 00:00:00 5P4K65B 2021-01-23 ENCPL 00:00:00 0Y0G90K 2021-01-23 ENCPL 00:00:00 3V9W32Y 2021-01-23 ENCPL 00:00:00 7Z8S77L 2021-01-23 ENCPL 00:00:00 1I5T54C 2021-01-23 ENCPL 00:00:00 1L2D41U 2021-01-23 ENCPL 00:00:00 9S6Y75I 2021-01-23 ENCPL 00:00:00 3S4U83D 2021-01-23 ENCPL 00:00:00 1F9M15G 2021-01-23 ENCPL 00:00:00 1N2C60J 2021-01-23 ENCPL 00:00:00 7Z9A23A 2021-01-23 ENCPL 00:00:00 6L7V05G 2021-01-23 ENCPL 00:00:00 INSURANCE CORRESPONDENCE 2020-10-08 Doctor Unassigned, No U [facility] 06:01:00 Name Medical Branch AUTHORIZATION FOR 2019-10-02 Doctor Unassigned, No [facility] RELEASE OF PHI 06:01:00 Name Medical [place] POCT GLUCOSE (AUTOMATED) 2019-06-06 [facility] 14[facility]56[facility]00 [facility] PREPARE PACKED RBC [facility] 14:25:25 [facility] POCT GLUCOSE (AUTOMATED) 2019-06-06 [facility] 12:28:00 [facility] MAGNESIUM 2019-06-06 [facility] 10[facility]34[facility] COMP. METABOLIC PANEL 2019-06-06 [id number] 10:34:00 Medical Branch CBC WITH DIFFERENTIAL 2019-06-06 [facility] 10:34:00 Medical Branch POCT GLUCOSE (AUTOMATED) 2019-06-06 [facility] 05:34:00 [facility] POCT GLUCOSE (AUTOMATED) 2019-06-06 [facility] 01:48:00 [facility] POCT GLUCOSE (AUTOMATED) 2019-06-05 [facility] 17:08:00 [facility] TYPE AND SCREEN 2019-06-05 Nancy Torres [facility] [place] 15:12:00 Medical Branch EKG-12 LEAD 2019-06-05 Nancy Torres [facility] 14:21:04 Medical Branch EKG-12 LEAD 2019-06-05 Nancy Torres [facility] 14:15:54 Medical Branch CBC WITH DIFFERENTIAL 2019-06-05 Nancy Torres [facility] 13:47:00 Medical Branch GLYCOSYLATED HEMOGLOBIN 2019-06-05 Scot, [facility] (A1C) 13:47:00 Medical Branch BASIC METABOLIC PANEL 2019-06-05 Nancy Torres [facility] (NA, K, CL, CO2, 13:25:00 Medical Branch GLUCOSE, BUN, CREATININE, CA) EKG-12 LEAD 2019-06-01 [facility] [place] 12:26:24 Medical Branch COMP. METABOLIC PANEL 2019-06-01 [facility] ([id number]) 12:11:00 Medical Branch CBC WITH DIFFERENTIAL 2019-06-01 [facility] 12:10:00 Medical Branch POCT GLUCOSE (AUTOMATED) 2019-05-28 [facility] 21:07:00 Medical Branch POCT GLUCOSE (AUTOMATED) 2019-05-28 [facility] 16:27:00 Medical Branch POCT GLUCOSE (AUTOMATED) 2019-05-28 [facility] 14:33:00 Medical Branch HEPATIC FUNCTION PANEL 2019-05-28 [facility] ([id number]) (ALB,T.PRO,BILI 13:11:00 Medical Branch T,BU/BC,ALT,AST,ALK PHOS) BASIC METABOLIC PANEL 2019-05-28 [facility] (NA, K, CL, CO2, 13:11:00 Medical Branch GLUCOSE, BUN, CREATININE, CA) CBC WITH DIFFERENTIAL 2019-05-28 [facility] 13:11:00 Medical Branch POCT GLUCOSE (AUTOMATED) 2019-05-28 Denis [facility] 13:10:00 Medical Branch POCT GLUCOSE (AUTOMATED) 2019-05-24 James Parker [facility] 16:18:00 Medical Branch HEPATIC FUNCTION PANEL 2019-05-24 [facility] ([id number]) (ALB,T.PRO,BILI 12:58:00 Medical Branch T,BU/BC,ALT,AST,ALK PHOS) BASIC METABOLIC PANEL 2019-05-24 [facility] (NA, K, CL, CO2, 12:58:00 Medical Branch GLUCOSE, BUN, CREATININE, CA) CBC WITH DIFFERENTIAL 2019-05-24 [facility] 12:58:00 Medical Branch EKG-12 LEAD 2019-05-24 Andrey Barrios [facility] [place] 12:43:28 Medical Branch NOTICE OF PRIVACY 2019-05-24 Doctor Unassigned, No [facility] PRACTICES 12:20:28 Name Medical Branch CONSENT/REFUSAL FOR 2019-05-24 Doctor Unassigned, No [facility] DIAGNOSIS AND TREATMENT 12:20:06 Name Medical Branch HEPATITIS B SURFACE 2019-05-20 Jarvis, [facility] ANTIBODY 19:03:00 [facility] HEPATITIS B SURFACE 2019-05-20 Jarvis, [facility] ANTIGEN 19:03:00 [facility] POCT GLUCOSE (AUTOMATED) 2019-05-20 James Parker [facility] 16:07:00 Medical Branch EKG-12 LEAD 2019-05-20 Flower Martin [facility] 13:27:58 Medical Branch BASIC METABOLIC PANEL 2019-05-20 Flower Martin [facility] (NA, K, CL, CO2, 12:46:00 Medical Branch GLUCOSE, BUN, CREATININE, CA) CBC WITH DIFFERENTIAL 2019-05-20 Flower Martin [facility] 12:46:00 Medical Branch EKG-12 LEAD 2019-05-20 Flower Martin [facility] 12:33:38 Medical Branch POCT GLUCOSE (AUTOMATED) 2019-05-15 [facility] 21:38[facility]00 [facility] POCT GLUCOSE (AUTOMATED) 2019-05-[address] [facility] 16:32:00 Medical Branch POCT GLUCOSE (AUTOMATED) 2019-05-[address] [facility] 13:58:00 Medical Branch COMP. METABOLIC PANEL 2019-05-15 [facility] ([id number]) 12:42:00 Medical Branch CBC WITH DIFFERENTIAL 2019-05-15 [facility] 12:42:00 Medical Branch POCT GLUCOSE (AUTOMATED) 2019-05-15 Doctor Unassigned, No [facility] 12:20:00 Name Medical Branch CONSENT/REFUSAL FOR 2019-05-15 Doctor Unassigned, No [facility] DIAGNOSIS AND TREATMENT 12:14:25 Name Medical Branch POCT GLUCOSE (AUTOMATED) 2019-05-11 Jesus Marshall [facility] ity [facility] 16:40:00 Medical Branch POCT GLUCOSE (AUTOMATED) 2019-05-11 [facility] 12:48:00 Medical Branch POCT GLUCOSE (AUTOMATED) 2019-05-11 [facility] 04:32:00 Medical Branch POCT GLUCOSE (AUTOMATED) 2019-05-11 [facility] it[facility] 01:30:00 Medical Branch BASIC METABOLIC PANEL 2019-05-10 [facility] (NA, K, CL, CO2, 20:19:00 Medical Branch GLUCOSE, BUN, CREATININE, CA) XR CHEST 1 VW 2019-05-10 [facility] ex 19:19:03 Medical Branch FL TIME OR 2019-05-10 [facility] (NON-REPORTABLE) 17:49:37 Medical Branch POCT GLUCOSE(AGE 2019-05-10 Latonya Barry [facility] [id number]) 16:03:00 Medical Branch POCT GLUCOSE (AUTOMATED) 2019-05-10 [facility] 13:04:00 Medical Branch POCT GLUCOSE (AUTOMATED) 2019-05-[address] [facility] ity [facility] 09:30:00 Medical Branch POCT GLUCOSE (AUTOMATED) 2019-05-10 [facility] 01:04:00 Medical Branch POCT GLUCOSE (AUTOMATED) 2019-05-09 [facility] ity [facility] 21:25:00 Medical Branch POCT GLUCOSE (AUTOMATED) 2019-05-09 [facility] ity [facility] 16:42:00 Medical Branch POCT GLUCOSE (AUTOMATED) 2019-05-09 [facility] ity [facility] 15:12:00 Medical Branch POCT GLUCOSE (AUTOMATED) 2019-05-09 [facility] ity [facility] 15:11:00 Medical Branch BASIC METABOLIC PANEL 2019-05-09 Nancy Torres [facility] (NA, K, CL, CO2, 12:56:00 Medical Branch GLUCOSE, BUN, CREATININE, CA) COMP. METABOLIC PANEL 2019-05-07 [facility] ([id number]) 11:59:00 Medical Branch PROFILE / HEMOGRAM 2019-05-07 [facility] 11:59:00 Medical Branch CONSENT/REFUSAL FOR 2019-05-07 Doctor Unassigned, Nas[facility] DIAGNOSIS AND TREATMENT 11:26:49 Name Medical Branch POCT GLUCOSE (AUTOMATED) 2019-05-03 [facility] 20:37:00 Medical Branch POCT GLUCOSE (AUTOMATED) 2019-05-03 [facility] 16:44:00 Medical Branch POCT GLUCOSE (AUTOMATED) 2019-05-03 [facility] 14:20:00 [facility] HEPATIC FUNCTION PANEL 2019-05-03 [facility] ([id number]) (ALB,T.PRO,BILI 12:17:00 Medical Branch T,BU/BC,ALT,AST,ALK PHOS) BASIC METABOLIC PANEL 2019-05-03 [facility] (NA, K, CL, CO2, 12:17:00 Medical Branch GLUCOSE, BUN, CREATININE, CA) CBC WITH DIFFERENTIAL 2019-05-03 [facility] 12:17:00 [facility] EKG-12 LEAD 2019-05-03 [facility] 12:05:31 [facility] POCT GLUCOSE (AUTOMATED) 2019-04-29 [facility] 16:46:00 [facility] POCT GLUCOSE (AUTOMATED) 2019-04-29 [facility] 12:48:00 [facility] Hospital BASIC METABOLIC PANEL 2019-04-29 [facility] (NA, K, CL, CO2, 11:20:00 Medical Branch GLUCOSE, BUN, CREATININE, CA) CBC WITH DIFFERENTIAL 2019-04-29 [facility] 11:20:00 Medical Branch POCT GLUCOSE (AUTOMATED) 2019-04-24 [facility] 21:05:00 Medical Branch POCT GLUCOSE (AUTOMATED) 2019-04-24 [facility] 16:43:00 Medical Branch POCT GLUCOSE (AUTOMATED) 2019-04-24 [facility] 14:05:00 Medical Branch EKG-12 LEAD 2019-04-24 [facility] 12:43:48 Medical Branch BASIC METABOLIC PANEL 2019-04-24 [facility] (NA, K, CL, CO2, 12:43:00 Medical Branch GLUCOSE, BUN, CREATININE, CA) POCT GLUCOSE (AUTOMATED) 2019-04-21 [facility] 01:21:00 Medical Branch POCT GLUCOSE (AUTOMATED) 2019-04-20 [facility] 21:30:00 Medical Branch POCT GLUCOSE (AUTOMATED) 2019-04-20 [facility] 20:34:00 Medical Branch HEPATIC FUNCTION PANEL 2019-04-20 Denis [facility] ([id number]) (ALB,T.PRO,BILI 12:38:00 Medical Branch T,BU/BC,ALT,AST,ALK PHOS) BASIC METABOLIC PANEL 2019-04-20 Denis [facility] (NA, K, CL, CO2, 12:38:00 Medical Branch GLUCOSE, BUN, CREATININE, CA) CBC WITH DIFFERENTIAL 2019-04-20 Denis [facility] 12:38:00 Medical Branch EKG-12 LEAD 2019-04-20 Denis [facility] xas 12:25:59 Medical Branch POCT GLUCOSE (AUTOMATED) 2019-04-15 [facility] 20:32:00 Medical Branch POCT GLUCOSE (AUTOMATED) 2019-04-15 [facility] 16:32:00 Medical Branch POCT GLUCOSE (AUTOMATED) 2019-04-15 [facility] 12:46:00 Medical Branch HEPATIC FUNCTION PANEL 2019-04-15 Denis [facility] (84116) (ALB,T.PRO,BILI 11:25:00 Medical Branch T,BU/BC,ALT,AST,ALK PHOS) BASIC METABOLIC PANEL 2019-04-15 Denis [facility] (NA, K, CL, CO2, 11:25:00 Medical Branch GLUCOSE, BUN, CREATININE, CA) CBC WITH DIFFERENTIAL 2019-04-15 Andrey Barrios [facility] 11:25:00 Medical Branch EKG-12 LEAD 2019-04-15 Andrey Barrios [facility]as 11:16:07 Medical Branch Plan of Care Planned [...] Test 00:00:00 (procedure) [code = Medical Center 14132746] Future Scheduled 2017-06-[address] [facility] [facility] - Test 00:00:00 measurement Medical Center (procedure) [code = 26274159] Future Scheduled 1992 DTAP/TDAP/TD VACCINES CH I [...] Future Scheduled [address] [facility] [facility] - Test 00:00:00 examination Medical Center (regime/therapy) [code = 869452825] Future Scheduled 1983 Urine screening for [facility] - Test 00:00:00 protein (procedure) Medical Center [code = 698150915] Future Scheduled [address] [facility] - Test 00:00:00 malignant neoplasm of Medica l Center colon (procedure) [code = 070688808] Encounters Start End Encounter Admission Attending Care Care Encounter Source Date/Time Date/Time Type Type Clinicians Facility Department ID 2021-10-14 Outpatient 3 [facility] ENCPL KAITLYNN [id number] ENCPL 12:05:40 Ji patel 2021-10-14 Outpatient 3 [id number] ENCPL KAITLYNN [id number] ENCPL 12:04:57 0506 2021-10-14 Outpatient 3 [id number] ENCPL REF [id number] ENCPL 12:04:34 0505 2021-10-13 Outpatient Mario Alberto, [facility] [id number] 14[facility]35[facility] 2021-11-04 2021-11-[address] [facility] [id number] [facility]00 [facility] 2021-10-24 2021-10-26 Hospital UR Lisa Kim [facility] [id number] [facility] 16:30:00 21:50:00 Encounter Chet Sweeney [facility] 2021-10-24 2021-10-26 Inpatient UR [facility] [id number] [facility] 16:30[facility]00 21:50:00 [facility] 2021-10-24 2021-10-24 Travel [facility] [id number] [facility]00 [facility] 2021-10-24 2021-10-24 Graciela Ford [facility] [id number] 00:00:00 00:00:00 Only Yessenia [facility] 2021-10-24 2021-10-24 Licha Guillen [facility] [id number] 00:[facility]00 [facility]00 [facility] 2021-10-01 2021-10-[address] [facility] [id number] [facility] 00:[facility]00 [facility] 2021-01-03 2021-01-03 Outpatient [facility] [id number] Univers 13:25:00 13:25:00 ity [facility] 2021-01-02 2021-01-02 Outpatient [facility] [id number] [facility] 13:25:00 13:25:00 ity [facility] 2020-12-13 2020-12-13 Outpatient R PRISCILA, [facility] [id number] Univers 13:20:00 13:20:00 SHELDON ity [facility] 2020-10-08 2020-10-08 Orders Doctor ANTONIO 1.2.840.114 [id number] 00:00:00 00:00:00 Only Unassigned, TISHA 350.1.13.10 [facility] 4.2.7.2.686 [id number] 2020-10-08 2020-10-08 Orders Doctor ANTONIO 1.2.840.114 [id number] Univers 00:00:00 00:00:00 Only Unassigned, TISHA 350.1.13.10 [facility] 4.2.7.2.686 Helder as [id number] [address] 2019-10-02 2019-10-02 Orders Doctor ANTONIO 1.2.840.114 [id number] 00:00:00 00:00:00 Only Unassigned, TISHA 350.1.13.10 [facility] 4.2.7.2.686 [id number] [facility] 2019-10-02 2019-10-02 Orders Doctor ALVAREZ 1.2.840.114 [id number] Univers 00:00:00 00:00:00 Only Unassigned, TISHA 350.1.13.10 [facility] 4.2.7.2.686 [place] as [phone] [address] 2019-06-05 2019-06-06 Emergency Nancy Torres [facility] 1.2.840 .114 [id number] 07:59:43 14:59:00 Mak Ellison 350.1.13.10 [place] 4.2.7.2.686 [place] [id number] [facility] 2019-06-05 2019-06-06 Emergency Nancy Torres [facility] 1.2.840 .114 [id number] [facility] 07:59:43 14:59:00 Mak Ellison 350.1.13.10 ity of [place] 4.2.7.2.686 [facility] [id number] [address] 2019-06-01 2019-06-01 Emergency Luca Jackson [facility] 1.2.840. 114 [id number] 06:56:22 17:52:00 Jesus Marshall 350.1.13.10 [place] 4.2.7.2.6 [place] [id number] [facility] 2019-06-01 2019-06-01 Emergency Luca Jackson [facility] 1.2.840. 114 [id number] [facility] 06:56:22 17:52:00 Jesus Marshall 350.1.13.10 ity of [place] 4.2.7.2.686 [facility] [id number] [address] 2019-05-28 2019-05-28 Emergency Andrey Barrios [facility] 1.2.840. 114 [id number] 07:49:46 20:40:00 Jesus Marshall 350.1.13.[address] [place] [address] [place] [address] [id number] [facility] 2019-05-28 2019-05-28 Emergency Andrey Barrios [facility] 1.2.840. 114 [id number] [facility] 07:49:46 20:40:00 Jesus Marshall 350.1.13.10 ity of [place] 4.2.7.2.[address] [place] [id number] 2019-05-24 2019-05-24 Emergency Andrey Barrios [facility] 1.2.840. 114 [id number] 07:36:09 16:15:00 James Parker 350.1.13.[address] [place] [address] [place] [address] [phone] [facility] 2019-05-24 2019-05-24 Emergency Andrey Barrios [facility] 1.2.840. 114 [id number] [facility] 07:36:09 16:15:00 James Parker 350.1.13.10 ity of [place] 4.2.7.2.686 [facility] [phone] [place] [address] Branch 2019-05-20 2019-05-20 Emergency Flower Martin [facility] 1.2.8 40.114 [id number] 07:34:17 19:50:00 James Parker 350.1.13.10 [place] 4.2.7.2.686 [place] [id number] [facility] 2019-05-20 2019-05-20 Emergency Flower Martin [facility] 1.2.8 40.114 [id number] [facility] 07:34:17 19:50:00 James Parker 350.1.13.10 ity of [place] 4.2.7.[address] [place] [phone] 2019-05-15 2019-05-15 Emergency Luca Jackson [facility] 1.2.840. 114 [id number] 07:17:11 18:48:00 Jesus Marshall 350.1.13.10 [place] 4.2.7.2.686 [place] [id number] [facility] 2019-05-15 2019-05-15 Emergency Luca Jackson [facility] 1.2.840. 114 [id number] [facility] 07:17:11 18:48:00 Jesus Marshall 350.1.13.10 ity of [place] 4.2.7.2.[address] [place] [id number] 2019-05-09 2019-05-11 Emergency Nancy Torres S [facility] 1.2.840 .114 [id number] 07:23:22 15:03:00 Jesus Marshall 350.1.13.[address] [place] [address] [place] [address] [id number] [facility] 2019-05-09 2019-05-11 Emergency Nancy Torres S [facility] 1.2.840 .114 [id number] [facility] 07:23:22 15:03:00 Jesus Marshall 350.1.13.10 ity of [place] 4.2.7.2.[address] [place] [phone] 2019-05-07 2019-05-07 Emergency Denis, [facility] 1.2.713.241 [id number] 06:36:08 08:19:00 Andrey [place] 350.1.13.10 [place] 4.2.7.2.686 [place] [id number] [facility] 2019-05-07 2019-05-07 Emergency Barrios, [facility] 1.2.610.095 [id number] [facility] 06:36:08 08:19:00 Andrey [place] 350.1.13.10 i ty of [place] 4.2.7.2.686 [facility] [id number] [address] 2019-05-03 2019-05-03 Emergency Andrey Barrios [facility] 1.2.840. 114 [id number] 07:04:51 19:40:00 Movguru, Caleb [place] 350.1.13.10 [place] 4.2.7.2.686 [place] [id number] [facility] 2019-05-03 2019-05-03 Emergency Andrey Barrios [facility] 1.2.840. 114 [id number] [facility] 07:04:51 19:40:00 Movva, Caleb [place] 350.1.13.10 ity of [place] 4.2.7.2.[address] [place] [id number] 2019-04-29 2019-04-29 Emergency Nancy Torres [facility] 1.2.840 .114 [id number] 06:03:54 16:18:00 OzeinabrebeccaeBebea Jaklam [place] 350.1.13.10 [place] 4.2.7.2.686 [place] [id number] [facility] 2019-04-29 2019-04-29 Emergency Nancy Torres [facility] 1.2.840 .114 [id number] [facility] 06:03:54 16:18:00 Oyabure, Bebea Jakmynorarojesuspipern [place] 350.1.13.10 ity of [place] 4.2.7.2.[address] [place] [id number] 2019-04-24 2019-04-24 Emergency Flower Martin [facility] 1.2.8 40.114 [id number] 07:32:53 17:15:00 Mak Ellison [place] 350.1.13.10 [place] 4.2.7.2.686 [place] [phone] 08 2019-04-24 2019-04-24 Emergency Flower Martin [facility] 1.2.8 40.114 [id number] [facility] 07:32:53 17:15:00 Mak Ellison [place] 350.1.13.10 ity of [place] 4.2.7.[address] [place] [address] [phone] [place] [address] Branch 2019-04-20 2019-04-20 Emergency Andrey Barrios [facility] 1.2.840. 114 [id number] 07:35:56 21:13:00 Mak Ellison [place] 350.1.13.[address] [place] [address] [place] [address] [phone] [facility] 2019-04-20 2019-04-20 Emergency Andrey Barrios [facility] 1.2.840. 114 [id number] [facility] 07:35:56 21:13:00 Mak Ellison [place] 350.1.13.10 ity of [place] 4.2.7.2.[address] [place] [address] [phone] [place] [address] Branch 2019-04-15 2019-04-15 Emergency Andrey Barrios [facility] 1.2.840. 114 [id number] 06:12:02 17:50:00 Hirenguru, Caleb [place] 350.1.13.10 [place] [address] [place] [address] [phone] [facility] 2019-04-15 2019-04-15 Emergency Andrey Barrios [facility] 1.2.840. 114 [id number] [facility] 06:12:02 17:50:00 Movva, Caleb [place] 350.1.13.10 ity of [place] 4.2.7.2.[address] [place] [phone] Results Test Description Test Time Test Comments Results Result [facility] e Comments ANG, TUNNELED 2021-10-28 Reason [...] the patient's medical record by the nurse. Vascular Ultrasound Technologist: Gary Acosta M.D. Complex Care Nurse Practitioner: Tor Aburto MD. Approach: Right internal jugular [...] A 23 cm tip to cuff 15.5 Argentine Duraflow 2 catheter was brought through the [...] MDReport Verified Date/Time: 10/28/2021 10:43:27 Reading Location: [facility] Diagnostic Imaging Reading Room - [facility] 1.310.12 -Glucose meter 2021-10-26 21:27:43 Test Item Value Reference Range Interpretation Comme nts POC-Glucose Meter (test code = 210 mg/dL 70-110 H : TESTED AT [facility] [address] [facility] 1538) [facility], 770 30: Lawn Specialist/Techni nora ID = [id number] for Pat (contrac t)Tiffani Lab Interpretation (test code = Abnormal 33723-5) [facility] [id number] 21:27:43 Test Item Value Reference Range Interpretation Comments POC-GLUCOSE METER 210 mg/dL 70-110 H : TESTED A T [facility] 6720 (BEAKER) (test code = HAL Mai [facility], 1538) [address]: Lawn Specialist/Techni nora ID = [id number] for Adam ojeda (contract)Radu ra Hepatitis B surface [id number] 18:08:25 Test Item Value Reference Range Interpretation Comments HBsAg Screen (test code Nonreactive Nonreactive = 5195-3) DAVID (test code = DAVID) Specimen is considered negative for HBsAg. Lab Interpretation (test Normal code = 29210-9) [facility] SURFACE [id number] 18:08:25 Test Item Value Reference Range Interpretation Comments HEPATITIS B SURFACE ANTIGEN (2) Nonreactive Nonreactive (BEAKER) (test code = 2585) Specimen is considered negative for HBsAg.POCT-GLUCOSE [id number] 17:50:23 Test Item Value Reference Range Interpretation Comments POC-GLUCOSE METER 174 mg/dL 70-110 H : TESTED A T [facility] 6720 (BEAKER) (test code = HAL Mai [place], 1538) [address]: Lawn Specialist/Techni nora ID = [id number] for Valorie Dickerson Basic Metabolic [id number] 17:04:22 Test Item Value Reference Range Interpretation [...] (test code = 8.1 mg/dL 8.4-10.2 L 87500-8) EGFR (test code = 10 mL/min/1.73 [place] [address]-5) NOT ACCURATE CREATININE CLEARANCE IN PREDICTING GLOMERULAR FILTRATION RATE . ESTIMATED GFR I S NOT APPLICABLE FOR DIALYSIS PATIENTS. DAVID (test code = DAVID) Lawn Specialist ID - CDP Lab Interpretation Abnormal (test code = 51792-3) [facility] MET[facility]OLIC [id number] 17:04:22 Test Item Value Reference Range Interpretation [...] S NOT APPLICABLE FOR DIALYSIS PATIEN TS. Lawn Specialist ID - CDPPTH, [id number] 16:15:38 Test Item Value Reference Range Interpretation Comments PTH (test code = 2731-8) 1275.7 pg/mL 8.5-72.5 H DAVID (test code = DAVID) Lawn Specialist ID - BS Lab Interpretation (test Abnormal code = 28181-4) [facility], [id number] 16:15:38 Test Item Value Reference Range Interpretation Comments PARATHYROID HORMONE INTACT 1275.7 pg/mL 8.5-72.5 H (BEAKER) (test code = 577) Lawn Specialist ID - [id number] 16:06:56 Test Item Value Reference Range Interpretation Comments Magnesium (test code = 2.0 mg/dL 1.6-2.6 Speci men 40935-1) slightly hemolyzed DAVID (test code = DAVID) Lawn Specialist ID - BS Lab Interpretation Normal (test code = 58821-9) [facility] 16:06:56 Test Item Value Reference Range Interpretation Comments Phosphorus (test code 6.6 mg/dL 2.3-4.7 H Specim en = 2777-1) slightly hemolyzed DAVID (test code = DAVID) Lawn Specialist ID - BS Lab Interpretation Abnormal (test code = 89380-7) [facility] 16:06:56 Test Item Value Reference Range Interpretation Comments MAGNESIUM (BEAKER) 2.0 mg/dL 1.6-2.6 Specimen slightly (test code = 627) hemolyzed Lawn Specialist ID - [id number] 16:06:56 Test Item Value Reference Range Interpretation Comments PHOSPHORUS (BEAKER) 6.6 mg/dL 2.3-4.7 H Specimen slightly (test code = 604) hemolyzed Lawn Specialist ID - BSCBC with platelet count + automated [id number] 16:00:51 Test Item Value Reference Range Interpretation Comments WBC (test code = 6690-2) 17.8 See_Comment H [A utomated message] The system Spotsi generated this result transmitted ref erence range: 3.5 - 10 .5 K/L. The refe rence range was not u sed to interpret this result as normal/abnor mal. RBC (test code = 789-8) 3.20 See_Comment L [Au tomated message] The system Spotsi generated this result transmitted ref erence range: 4.63 - 6 .08 M/L. The refe rence range was not u sed to interpret this result as normal/abnor mal. MCHC (test code = 786-4) 33.9 See_Comment L [A utomated message] The system Spotsi generated this result transmitted ref erence range: [...] = 112 See_Comment L [Aut omated message] 187-3) The system Spots[employer] generated this result transmitted ref erence range: 150 - 45 0 K/CU MM. The referen ce range was not u sed to interpret this result as normal/abnor mal. MPV (test code = 11.8 fL 9.4-12.4 90446-6) nRBC (test code = 413) 0 See_Comment [Aut omated message] The system Spotsi generated this result transmitted ref erence range: [...] H [Aut omated message] 670) The system Spots[employer] generated this result transmitted ref erence range: 1.78 - 5 .38 K/L. The refe rence range was not u sed to interpret this result as normal/abnor mal. # Lymphs (test code = 0.34 See_Comment L [Auto mated message] 414) The system Spots[employer] generated this result transmitted ref erence range: 1.32 - 3 .57 K/L. The refe rence range was not u sed to interpret this result as normal/abnor mal. # Monos (test code = 0.63 See_Comment [Autom ated message] 415) The system Spots[employer] generated this result transmitted ref erence range: 0.30 - 0 .82 K/L. The refe rence range was not u sed to interpret this result as normal/abnor mal. # Eos (test code = 416) 0.02 See_Comment L [Au tomated message] The system Spotsi generated this result transmitted ref erence range: 0.04 - 0 .54 K/L. The refe rence range was not u sed to interpret this result as normal/abnor mal. # Baso (test code = 417) 0.03 See_Comment [A utomated message] The system Spotsi generated this result transmitted ref erence range: 0.01 - 0 .08 K/L. The refe rence range was not u sed to interpret this result as normal/abnor mal. Immature 0 % 0-1 Granulocytes-Relative (test code = 2801) Lab Interpretation (test Abnormal code = 82471-2) [facility] W/PLT COUNT & AUTO [id number] 16:00:51 Test Item Value Reference Range Interpretation [...] PERCENT (BEAKER) (test code = 2801) POCT-GLUCOSE [id number] 12:37:45 Test Item Value Reference Range Interpretation Comments POC-GLUCOSE METER 237 mg/dL 70-110 H : TESTED A T [facility] 6720 (BEAKER) (test code = [facility]8) [address]: Lawn Specialist/Techni nora ID = [id number] for Ab uanga, Aiyat POCT-GLUCOSE [id number] 08:48:26 Test Item Value Reference Range Interpretation Comments POC-GLUCOSE METER 196 mg/dL 70-110 H : TESTED A T [facility] 6720 (BEAKER) (test code = [facility]) 22257: Lawn Specialist/Techni nora ID = [id number] for Ab uanga, Aiyat POCT-GLUCOSE [id number] 21:53:18 Test Item Value Reference Range Interpretation Comments POC-GLUCOSE METER 213 mg/dL 70-110 H : TESTED A T [facility] 6720 (BEAKER) (test code = [facility]) [address]: Lawn Specialist/Techni nora ID = [id number] for Ng lynette (contract), Lovelace ra POCT-GLUCOSE [id number] 18:22:52 Test Item Value Reference Range Interpretation Comments POC-GLUCOSE METER 162 mg/dL 70-110 H : TESTED A T [facility] 6720 (BEAKER) (test code = [facility]) [address]84[address]: Lawn Specialist/Techni nora ID = [id number] for Ab uanga, Aiyat POCT-GLUCOSE [id number] 13:11:18 Test Item Value Reference Range Interpretation Comments POC-GLUCOSE METER 116 mg/dL 70-110 H : TESTED A T [facility] 6720 (BEAKER) (test code = [facility], 1538) 57[address]: Lawn Specialist/Techni nora ID = [id number] for Ab uanga, Aiyat POCT-GLUCOSE [id number] 12:43:05 Test Item Value Reference Range Interpretation Comments POC-GLUCOSE METER 62 mg/dL 70-110 L : TESTED A T [facility] 6720 (BEAKER) (test code = [facility], 1538) 00535: Lawn Specialist/Techni nora ID = [id number] for Abua gerry, Aiyat POCT-GLUCOSE [id number] 09:07:55 Test Item Value Reference Range Interpretation Comments POC-GLUCOSE METER 111 mg/dL 70-110 H : TESTED A T [facility] 6720 (BEAKER) (test code = [facility], 1538) [address]: Lawn Specialist/Techni nora ID = [id number] for Fo lkens (contract), Dianna rebecca Manual [id number] 06:54:58 Test Item Value Reference Range Interpretation [...] Elliptocytes (test 1+ few code = 962) Asaf Cells (test code 1+ few = 474) Artifact (test code = Present 3432) Platelet Conc (test Decreased code = 3438) DAVID (test code = DAVID) Lawn Specialist ID - [id number] ID - mary alice Bourgeois comments: Slide comments: Lab Interpretation Abnormal (test code = 78053-7) [facility](CELLAVISION MANUAL DIFF)2021-10-25 06:54:58 Test Item Value Reference [...] (BEAKER) (test code 1+ few = 962) ASAF CELLS (BEAKER) (test code = 1+ few 474) ARTIFACT (CELLAVISION)(BEAKER) Present (test code = 3432) PLATELET CONCENTRATION Decreased (CELLAVISION)(BEAKER) (test code = 3438) Lawn Specialist ID - [id number] ID - mary alice Bourgeois comments: Slide comments:CBC W/PLT COUNT & AUTO [id number] 06:54:57 Test Item Value Reference Range Interpretation [...] 0-0 (test code = 413) BASIC METABOLIC [id number] 06:20:34 Test Item Value Reference Range Interpretation [...] S NOT APPLICABLE FOR DIALYSIS PATIEN TS. Lawn Specialist ID - MANDEEP DOAUCHXGLVL4171-85-96 06:19:42 Test Item Value Reference Range Interpretation Comments PHOSPHORUS (BEAKER) (test code = 6.1 mg/dL 2.3-4.7 H 604) Lawn Specialist ID - MANDEEP VLDEQBGJHZ3447-97-74 06:19:41 Test Item Value Reference Range Interpretation Comments MAGNESIUM (BEAKER) (test code = 1.9 mg/dL 1.6-2.6 627) Lawn Specialist ID - MANDEEP GProthrombin time/[id number] 06:02:32 Test Item Value Reference Interpretation Comments Range Protime (test code = 21.2 See_Comment H [Autom ated 5902-2) message] The system which generated this result transmitted reference range : 11.9 - 14.2 seconds. The reference range was not used to interpret this result as normal/abnormal . INR (test code = 1.87 See_Comment [Automated 4621-6) message] The system which generated this result [...] valves. Lab Interpretation Abnormal (test code = 24108-6) [facility]/[id number] 06:02:32 Test Item Value Reference Range Interpretation Comments PROTIME (BEAKER) 21.2 seconds 11.9-14.2 H (test code = 759) INR (BEAKER) (test 1.87 See_Comment [Automat ed message] code = 370) The system Spots[employer] generated this result transmitted ref erence range: <=5.90. The reference range was not used to int erpret this result as normal/abnormal . RECOMMENDED COUMADIN/WARFARIN INR THERAPY RANGESSTANDARD DOSE: 2.0 - 3.0 Includes: PROPHYLAXIS forvenous thrombosis, systemic embolization; TREATMENT for venous thrombosis and/or pulmonary embolus.HIGH RISK: Target INR is 2.5-3.5 for patients with mechanical heart valves.Ketone, [id number] 05:21:25 Test Item Value Reference Range Interpretation Comments Ketones, Blood (test code = 1103) 0.0 mmol/L <0.4 Lab Interpretation (test code = Normal 86008-6) [facility], [id number] 05:21:25 Test Item Value Reference Range Interpretation Comments KETONES, BLOOD (BEAKER) (test code 0.0 mmol/L <0.4 = 1103) POCT-GLUCOSE [id number] 02:41:20 Test Item Value Reference Range Interpretation Comments POC-GLUCOSE METER 221 mg/dL 70-110 H : TESTED A T [facility] 6720 (BEAKER) (test code [facility], = 1538) [address]: Lawn Specialist/Techni nora ID = [id number] for Taylor Greer (cont ract) Pzqqttortbhea0589-87-55 22:09:15 Test Item Value Reference Range Interpretation Comments Procalcitonin (test code = 139.02 ng/mL <0.05 44616-5) DAVID (test code = DAVID) SEPSIS RISK (ng/mL)Low: 0.05-0.50Intermedi ate: 0.51-2.00High: >=2.01 Lab Interpretation (test Abnormal code = 04416-0) [facility]PROCALCITONIN2022-02-06 22:09:15 Test Item Value Reference Range Interpretation Comments PROCALCITONIN (BEAKER) (test 139.02 ng/mL <0.05 code = 3036) SEPSIS RISK (ng/mL)Low: 0.05-0.50Intermediate: 0.51-2.00High: >=2.01TSH/Free T4 If Jladsnevh2094-19-69 22:00:32 Test Item Value Reference Range Interpretation Comments TSH (test code = 2.914 See_Comment [Automated 18877-9) message] The system which generated this result transmit reyna reference range : 0.350 - 4.940 uIU/mL. The reference range was not used to interpret this result as normal/abnormal . DAVID (test code = DAVID) Lawn Specialist ID - DB Lab Interpretation Normal (test code = 08863-6) [facility]TSH/FREE T4 IF [id number] 22:00:32 Test Item Value Reference Range Interpretation Comments THYROID STIMULATING HORMONE 2.914 uIU/mL 0.350-4.940 (BEAKER) (test code = 772) Lawn Specialist ID - DBB-type Natriuretic Factor (BNP)2021-10-24 21:46:05 Test Item Value Reference Range Interpretation Comments BNP (test code = 77534-8) 1176 pg/mL 0-100 H DAVID (test code = DAVID) Lawn Specialist ID - DB Lab Interpretation (test Abnormal code = 83673-7) [facility] NATRIURETIC FACTOR (BNP)2021-10-24 21:46:05 Test Item Value Reference Range Interpretation Comments B-TYPE NATRIURETIC PEPTIDE 1176 pg/mL 0-100 H (BEAKER) (test code = 700) Lawn Specialist ID - DBComprehensive metabolic juhdo3220-58-81 21:43:08 Test Item Value Reference Range Interpretation Comments Protein, Total (test 6.0 See_Comment [Autom ated code = 2885-2) message] The system which generated this result transmit reyna reference range : 6.0 - 8.3 gm/dL . The reference range was not u sed to interpret th is result as normal/abnormal . Albumin (test code = 3.4 g/dL 3.5-5.0 L 35278-9) Alkaline Phosphatase 75 U/L 40-150 (test code = 6768-6) Total Bilirubin (test 0.7 mg/dL 0.2-1.2 code = 1975-2) Sodium (test code = 130 meq/L 136-145 L 2951-2) Potassium (test code 4.8 meq/L 3.5-5.1 = 2823-3) Chloride (test code = 98 meq/L 98-107 2075-0) CO2 (test code = 15 meq/L 22-29 L 8-9) BUN (test code = 67 mg/dL 7-21 H 3094-0) Creatinine (test code 7.41 mg/dL 0.57-1.25 H = 2160-0) Glucose (test code = 424 mg/dL 70-105 HH 2345-7) Calcium (test code = 8.1 mg/dL 8.4-10.2 L 83941-4) AST (test code = 16 U/L 5-34 1920-8) ALT (test code = 17 U/L 6-55 1742-6) EGFR (test code = 8 mL/min/1.73 [place] [address]-6) NOT ACCURATE CREATININE CLEARANCE IN PREDICTING GLOMERULAR FILTRATION RATE . ESTIMATED GFR I S NOT APPLICABLE FOR DIALYSIS PATIEN TS. HERNANDEZ (test code = DAVID) Lawn Specialist ID - DB Lab Interpretation Abnormal (test code = 26343-1) [facility]COMPREHENSIVE METABOLIC [id number] 21:43:08 Test Item Value Reference Range Interpretation [...] S NOT APPLICABLE FOR DIALYSIS PATIEN TS. Lawn Specialist ID - DB(CELLAVISION MANUAL DIFF)2021-10-24 21:40:39 Test [...] (BEAKER) (test code = 1+ few 768) ASAF CELLS (BEAKER) (test code = 1+ few 474) PLATELET CONCENTRATION Decreased (CELLAVISION)(BEAKER) (test code = 3438) Lawn Specialist ID - [id number] ID - mario Casiano comments: Slide comments: [id number] 21:40:05 Test Item Value Reference Range Interpretation Comments MAGNESIUM (BEAKER) (test code = 1.9 mg/dL 1.6-2.6 627) Lawn Specialist ID - NXARHAHHQOSF5896-87-82 21:40:05 Test Item Value Reference Range Interpretation Comments PHOSPHORUS (BEAKER) (test code = 6.2 mg/dL 2.3-4.7 H 604) Lawn Specialist ID - DBPROTHROMBIN TIME/KVO5546-74-05 21:34:02 Test Item Value Reference Range Interpretation Comments PROTIME (BEAKER) 22.2 seconds 11.9-14.2 H (test code = 759) INR (BEAKER) (test 1.97 See_Comment [Automat ed message] code = 370) The system Spotsi generated this result transmitted ref erence range: <=5.90. The reference range was not used to int erpret this result as normal/abnormal . RECOMMENDED COUMADIN/WARFARIN INR THERAPY RANGESSTANDARD DOSE: 2.0 - 3.0 Includes: PROPHYLAXIS forvenous thrombosis, systemic embolization; TREATMENT for venous thrombosis and/or pulmonary embolus.HIGH RISK: Target INR is 2.5-3.5 for patients with mechanical heart valves.Lactic acid, [id number] 21:32:22 Test Item Value Reference Range Interpretation Comments Lactate, Venous (test 2.40 mmol/L 0.50-2.20 H Specim en code = 2872) slightly hemolyzed DAVID (test code = DAVID) Lawn Specialist ID - DB Lab Interpretation Abnormal (test code = 84609-2) [facility] campusLACTIC ACID, [id number] 21:32:22 Test Item Value Reference Range Interpretation Comments LACTATE BLOOD VENOUS 2.40 mmol/L 0.50-2.20 H Specime n slightly (2) (BEAKER) (test hemolyzed code = 2872) Lawn Specialist ID - DBCBC W/PLT COUNT & AUTO XDGPBODBZQLT9580-01-86 21:19:53 Test Item Value Reference Range Interpretation [...] 0-0 (BEAKER) (test code = 413) POCT-GLUCOSE [id number] 20:44:50 Test Item Value Reference Range Interpretation Comments POC-GLUCOSE METER 391 mg/dL 70-110 H : TESTED A T [facility] 6720 (BEAKER) (test code = [facility], 1538) [address]: Lawn Specialist/Techni nora ID = [id number] for Bridgett puente (contract)Johnathan ae POCT-GLUCOSE [id number] 18:39:09 Test Item Value Reference Range Interpretation Comments POC-GLUCOSE METER 368 mg/dL 70-110 H : TESTED A T [facility] 6720 (BEAKER) (test code = [facility], 1538) 248[address]: Lawn Specialist/Techni nora ID = [id number] for Ab uanga, Aiyat POCT GLUCOSE (AUTOMATED)2019-06-06 16:29:00 Test Item Value Reference Range Interpretation Comments POCT GLU (test code = 6105370070) 346 mg/dL 70-110 H Lab Interpretation (test code = Abnormal 74972-5) [facility] 12:41:00 Test Item Value Reference Range Interpretation Comments POCT GLU (test code = 3364807284) 239 mg/dL 70-110 H Lab Interpretation (test code = Abnormal 43930-4) [facility] CenterCOMP[facility]OLIC PANEL (03229)2019-06-06 12:05:00 Test Item Value Reference Range Interpretation Comments NA (test code = 140 mmol/L 135-145 4849550307) K (test code = 4.0 mmol/L 3.5-5 1823927500) CL (test code = 102 mmol/L 98-108 2963117935) CO2 TOTAL (test code = 24 mmol/L 23-31 4208939714) AGAP (test code = 2-16 1421123036) BUN (test code = 41 mg/dL 7-23 H 6293415030) GLUCOSE (test code = 313 mg/dL 70-110 H 7882471430) CREATININE (test code = 6.78 mg/dL 0.6-1.25 H 9174085570) TOTAL BILI (test code = 0.2 mg/dL 0.1-1.8 4326432052) CALCIUM (test code = 8.0 mg/dL 8.6-10.6 L 5929476378) T PROTEIN (test code = 6.8 g/dL 6.3-8.2 1495740661) ALBUMIN (test code = 4.1 g/dL 3.5-5 5766135378) ALK PHOS (test code = 130 U/L 34-122 H 2373270609) ALT(SGPT) (test code = 48 U/L 9-51 5014252475) AST(SGOT) (test code = 28 U/L 13-40 3653106901) eGFR Calculation mL/min/1.73m2 (Non-) (test code = 6877099164) eGFR Calculation mL/min/1.73m2 () (test code = 7162230653) DAVID (test code = DAVID) Association of [...] tests). Lab Interpretation Abnormal (test code = 62483-5) [facility] 12:03:00 Test Item Value Reference Range Interpretation Comments MAGNESIUM (test code = 5175055298) 2.1 mg/dL 1.7-2.4 Lab Interpretation (test code = Normal 65362-1) [facility] WITH [id number] 12:00:00 Test Item Value Reference Range Interpretation Comments WBC (test code = See_Comment [Automated 8387-2) message] The sy stem which generated this result transmitted reference range : 4.20 - 10.70 10*3/?L. The reference range was not used to interpret this result as normal/abnormal . RBC (test code = See_Comment L [Automated 320-8) message] The sy stem which generated this [...] RDW-SD (test code = 44.4 fL 38.5-51.6 22405-5) RDW-CV (test code = 14.6 % 12.1-15.4 788-0) PLT (test code = See_Comment L [Automated 777-3) message] The sy stem which generated this result transmitted reference range : 150 - 328 10*3/ ?L. The reference r radha was not used to interpret this result as normal/abnormal . MPV (test code = 12.0 fL 9.8-13 45910-3) NRBC/100 WBC (test See_Comment [Automat ed code = 9039943201) message] The system which generated this result transmitted reference range : 0.0 - 10.0 /100 WBCs. The refer ence range was not u sed to interpret th is result as normal/abnormal . NRBC x10^3 (test code <0.01 See_Comment [Auto mated = 4587433214) message] The s ystem which generated this result transmitted reference range : 10*3/?L. The reference range was not used to interpret this result as normal/abnormal . GRAN MAT (NEUT) % 66.8 % (test code = 770-8) IMM GRAN % (test code 1.00 % = 8539250657) LYMPH % (test code = 18.1 % 736-9) MONO % (test code = 9.1 % 5905-5) EOS % (test code = 4.4 % 713-8) BASO % (test code = 0.6 % 706-2) GRAN MAT x10^3(ANC) 3.21 10*3/uL 1.99-6.95 (test code = 9306005176) IMM GRAN x10^3 (test 0.05 10*3/uL 0-0.06 code = 2103069617) LYMPH x10^3 (test code 0.87 10*3/uL 1.09-3.23 L = 731-0) MONO x10^3 (test code 0.44 10*3/uL 0.36-1.02 = 742-7) EOS x10^3 (test code = 0.21 10*3/uL 0.06-0.53 711-2) BASO x10^3 (test code 0.03 10*3/uL 0.01-0.09 = 704-7) Lab Interpretation Abnormal (test code = 07828-5) [facility] GLUCOSE (AUTOMATED)2019-06-06 05:47:00 Test Item Value Reference Range Interpretation Comments POCT GLU (test code = 2406219871) 339 mg/dL 70-110 H Lab Interpretation (test code = Abnormal 17661-0) [facility] GLUCOSE (AUTOMATED)2019-06-06 01:51:00 Test Item Value Reference Range Interpretation Comments POCT GLU (test code = 2867681922) 379 mg/dL 70-110 H Lab Interpretation (test code = Abnormal 53841-6) [facility] CenterGLYCOSYLATED HEMOGLOBIN (A1C)2019-06-05 23:34:00 Test Item Value Reference [...] Indicated Lab Interpretation Abnormal (test code = 85705-2) [facility] GLUCOSE (AUTOMATED)2019-06-05 17:48:00 Test Item Value Reference Range Interpretation Comments POCT GLU (test code = 6629234698) 220 mg/dL 70-110 H Lab Interpretation (test code = Abnormal 41863-3) [facility] CenterType [facility] Screen - ONCE [id number] 16:28:25 Test Item Value Reference Range Interpretation Comments ABO & RH (test code O Positive Performe d at [facility] = 20) [facility] [address] [place] [address]Pxie Free: [phone] A No. [id number] IAT (test code = Negative Performed a t [facility] 1185) [facility] [address] [place] [address]Aouf Free: [phone] A No. [id number] [facility] METABOLIC PANEL (NA, K, CL, CO2, GLUCOSE, BUN, CREATININE, CA)2019-06-05 14:12:00 Test Item Value Reference Range Interpretation Comments NA (test code = 136 mmol/L 135-145 1644285016) K (test code = 6.7 mmol/L 3.5-5 HH 0230083824) CL (test code = 107 mmol/L 98-108 7115522696) CO2 TOTAL (test code = 13 mmol/L 23-31 L 5531673232) AGAP (test code = 2-16 2586412728) BUN (test code = 86 mg/dL 7-23 H 1379195058) GLUCOSE (test code = 67 mg/dL 70-110 L 4626371457) CREATININE (test code = 11.83 mg/dL 0.6-1.25 H 1457773998) CALCIUM (test code = 7.5 mg/dL 8.6-10.6 L 0670035177) eGFR Calculation mL/min/1.73m2 (Non-) (test code = 2268216131) eGFR Calculation mL/min/1.73m2 () (test code = 9965748299) DAVID (test code = DAVID) Association of [...] tests). Lab Interpretation Abnormal (test code = 51995-2) [facility] WITH [id number] 14:02:00 Test Item Value Reference Range Interpretation [...] RDW-SD (test code = 45.5 fL 38.5-51.6 95308-7) RDW-CV (test code = 14.4 % 12.1-15.4 788-0) PLT (test code = See_Comment L [Automated 777-3) message] The sy stem which generated this result transmitted reference range : 150 - 328 10*3/ ?L. The reference r radha was not used to interpret this result as normal/abnormal . MPV (test code = 10.6 fL 9.8-13 58595-9) NRBC/100 WBC (test See_Comment [Automat ed code = 0012283928) message] The system which generated this result transmitted reference range : 0.0 - 10.0 /100 WBCs. The refer ence range was not u sed to interpret th is result as normal/abnormal . NRBC x10^3 (test code <0.01 See_Comment [Auto mated = 0137352584) message] The s ystem which generated this result transmitted reference range : 10*3/?L. The reference range was not used to interpret this result as normal/abnormal . GRAN MAT (NEUT) % 68.6 % (test code = 770-8) IMM GRAN % (test code 0.80 % = 8449088514) LYMPH % (test code = 18.4 % 736-9) MONO % (test code = 6.9 % 5905-5) EOS % (test code = 4.8 % 713-8) BASO % (test code = 0.5 % 706-2) GRAN MAT x10^3(ANC) 4.18 10*3/uL 1.99-6.95 (test code = 5198667261) IMM GRAN x10^3 (test 0.05 10*3/uL 0-0.06 code = 7042278298) LYMPH x10^3 (test code 1.12 10*3/uL 1.09-3.23 = 731-0) MONO x10^3 (test code 0.42 10*3/uL 0.36-1.02 = 742-7) EOS x10^3 (test code = 0.29 10*3/uL 0.06-0.53 711-2) BASO x10^3 (test code 0.03 10*3/uL 0.01-0.09 = 704-7) Lab Interpretation Abnormal (test code = 61733-6) [facility] (85012)2019-06-01 12:34:00 Test Item Value Reference Range Interpretation Comments NA (test code = 138 mmol/L 135-145 4170309066) K (test code = 5.7 mmol/L 3.5-5 H 7537041574) CL (test code = 108 mmol/L 98-108 7172731562) CO2 TOTAL (test code = 11 mmol/L 23-31 L 5431146307) AGAP (test code = 2-16 H 8944792090) BUN (test code = 69 mg/dL 7-23 H 0432513535) GLUCOSE (test code = 99 mg/dL 70-110 5016625048) CREATININE (test code = 12.11 mg/dL 0.6-1.25 H 7469173981) TOTAL BILI (test code = 0.3 mg/dL 0.1-1.9 1844748069) CALCIUM (test code = 7.7 mg/dL 8.6-10.6 L 5053292986) T PROTEIN (test code = 6.8 g/dL 6.3-8.2 0248935380) ALBUMIN (test code = 4.0 g/dL 3.5-5 2630756575) ALK PHOS (test code = 118 U/L 34-122 2426658803) ALT(SGPT) (test code = 65 U/L 9-51 H 0234849357) AST(SGOT) (test code = 39 U/L 13-40 9884599773) eGFR Calculation mL/min/1.73m2 (Non-) (test code = 2491161703) eGFR Calculation mL/min/1.73m2 () (test code = 2021652164) DAVID (test code = DAVID) Association of [...] tests). Lab Interpretation Abnormal (test code = 99077-5) [facility] WITH [id number] 12:25:00 Test Item Value Reference Range Interpretation [...] RDW-SD (test code = 45.4 fL 38.5-51.6 61895-2) RDW-CV (test code = 14.3 % 12.1-15.4 788-0) PLT (test code = See_Comment [Automated 777-3) message] The sy stem which generated this result transmitted reference range : 150 - 328 10*3/ ?L. The reference r radha was not used to interpret this result as normal/abnormal . MPV (test code = 10.1 fL 9.8-13 93244-8) NRBC/100 WBC (test See_Comment [Automat ed code = 2765680245) message] The system which generated this result transmitted reference range : 0.0 - 10.0 /100 WBCs. The refer ence range was not u sed to interpret th is result as normal/abnormal . NRBC x10^3 (test code <0.01 See_Comment [Auto mated = 1217768277) message] The s ystem which generated this result transmitted reference range : 10*3/?L. The reference range was not used to interpret this result as normal/abnormal . GRAN MAT (NEUT) % 68.1 % (test code = 770-8) IMM GRAN % (test code 0.70 % = 1346395439) LYMPH % (test code = 17.7 % 736-9) MONO % (test code = 6.8 % 5905-5) EOS % (test code = 5.8 % 713-8) BASO % (test code = 0.9 % 706-2) GRAN MAT x10^3(ANC) 4.77 10*3/uL 1.99-6.95 (test code = 8596435688) IMM GRAN x10^3 (test 0.05 10*3/uL 0-0.06 code = 2311974727) LYMPH x10^3 (test code 1.24 10*3/uL 1.09-3.23 = 731-0) MONO x10^3 (test code 0.48 10*3/uL 0.36-1.02 = 742-7) EOS x10^3 (test code = 0.41 10*3/uL 0.06-0.53 711-2) BASO x10^3 (test code 0.06 10*3/uL 0.01-0.09 = 704-7) Lab Interpretation Abnormal (test code = 49111-6) [facility] GLUCOSE (AUTOMATED)2019-05-28 21:17:00 Test Item Value Reference Range Interpretation Comments POCT GLU (test code = 5062739379) 108 mg/dL 70-110 Lab Interpretation (test code = Normal 28145-4) [facility] GLUCOSE (AUTOMATED)2019-05-28 16:45:00 Test Item Value Reference Range Interpretation Comments POCT GLU (test code = 4548798723) 205 mg/dL 70-110 H Lab Interpretation (test code = Abnormal 34054-0) [facility] GLUCOSE (AUTOMATED)2019-05-28 14:37:00 Test Item Value Reference Range Interpretation Comments POCT GLU (test code = 3147231572) 230 mg/dL 70-110 H Lab Interpretation (test code = Abnormal 53756-7) [facility] WITH WYDPGESTMDDS2678-02-05 13:34:00 Test Item Value Reference Range Interpretation [...] RDW-SD (test code = 42.7 fL 38.5-51.6 12735-7) RDW-CV (test code = 13.6 % 12.1-15.4 788-0) PLT (test code = See_Comment [Automated 777-3) message] The sy stem which generated this result transmitted reference range : 150 - 328 10*3/ ?L. The reference r radha was not used to interpret this result as normal/abnormal . MPV (test code = 10.0 fL 9.8-13 70265-2) NRBC/100 WBC (test See_Comment [Automat ed code = 5114490251) message] The system which generated this result transmitted reference range : 0.0 - 10.0 /100 WBCs. The refer ence range was not u sed to interpret th is result as normal/abnormal . NRBC x10^3 (test code <0.01 See_Comment [Auto mated = 6870821228) message] The s ystem which generated this result transmitted reference range : 10*3/?L. The reference range was not used to interpret this result as normal/abnormal . GRAN MAT (NEUT) % 79.4 % (test code = 770-8) IMM GRAN % (test code 0.70 % = 7833096589) LYMPH % (test code = 10.0 % 736-9) MONO % (test code = 5.8 % 5905-5) EOS % (test code = 3.5 % 713-8) BASO % (test code = 0.6 % 706-2) GRAN MAT x10^3(ANC) 8.05 10*3/uL 1.99-6.95 H (test code = 2649756041) IMM GRAN x10^3 (test 0.07 10*3/uL 0-0.06 H code = 1329074809) LYMPH x10^3 (test code 1.02 10*3/uL 1.09-3.23 L = 731-0) MONO x10^3 (test code 0.59 10*3/uL 0.36-1.02 = 742-7) EOS x10^3 (test code = 0.36 10*3/uL 0.06-0.53 711-2) BASO x10^3 (test code 0.06 10*3/uL 0.01-0.09 = 704-7) Lab Interpretation Abnormal (test code = 23287-2) [facility] Metabolic Panel (NA, K, CL, CO2, GLUCOSE, BUN, CREATININE, CA)2019-05-28 13:30:00 Test Item Value Reference Range Interpretation Comments NA (test code = 138 mmol/L 135-145 0101240891) K (test code = 5.5 mmol/L 3.5-5 H 9585272552) CL (test code = 107 mmol/L 98-108 0027174837) CO2 TOTAL (test code = 14 mmol/L 23-31 L 9708933976) AGAP (test code = 2-16 H 1505753147) BUN (test code = 86 mg/dL 7-23 H 3941800076) GLUCOSE (test code = 60 mg/dL 70-110 L 3469446159) CREATININE (test code = 11.37 mg/dL 0.6-1.25 H 5854134335) CALCIUM (test code = 7.8 mg/dL 8.6-10.6 L 1937608677) eGFR Calculation mL/min/1.73m2 (Non-) (test code = 8577031499) eGFR Calculation mL/min/1.73m2 () (test code = 5837012399) DAVID (test code = DAVID) Association of [...] tests). Lab Interpretation Abnormal (test code = 98148-6) [facility] (ALB, T.PRO, BILI T, BU/BC, ALT, AST, ALK PHOS)2019-05-28 13:30:00 Test Item Value Reference Range Interpretation Comments TOTAL BILI (test code = 3066733092) 0.2 mg/dL 0.1-1.1 BILI UNCON (test code = 4385548188) 0.0 mg/dL 0.1-1.1 L BILI CONJ (test code = 0025415500) 0.0 mg/dL 0-0.3 T PROTEIN (test code = 1741348911) 7.1 g/dL 6.3-8.2 ALBUMIN (test code = 0140862129) 4.3 g/dL 3.5-5 ALK PHOS (test code = 4347978923) 111 U/L 34-122 ALT(SGPT) (test code = 3402886283) 72 U/L 9-51 H AST(SGOT) (test code = 6084322595) 48 U/L 13-40 H Lab Interpretation (test code = Abnormal 62356-6) [facility] GLUCOSE (AUTOMATED)2019-05-28 13:13:00 Test Item Value Reference Range Interpretation Comments POCT GLU (test code = 9951259805) 62 mg/dL 70-110 L Lab Interpretation (test code = Abnormal 13603-2) [facility] GLUCOSE (AUTOMATED)2019-05-24 16:29:00 Test Item Value Reference Range Interpretation Comments POCT GLU (test code = 7480157601) 297 mg/dL 70-110 H Lab Interpretation (test code = Abnormal 90049-1) [facility] Metabolic Panel (NA, K, CL, CO2, GLUCOSE, BUN, CREATININE, CA)2019-05-24 13:36:00 Test Item Value Reference Range Interpretation Comments NA (test code = 135 mmol/L 135-145 0086276986) K (test code = 6.7 mmol/L 3.5-5 HH 5683129320) CL (test code = 106 mmol/L 98-108 2955444905) CO2 TOTAL (test code = 13 mmol/L 23-31 L 5243025101) AGAP (test code = 2-16 1867541834) BUN (test code = 84 mg/dL 7-23 H 6895111120) GLUCOSE (test code = 65 mg/dL 70-110 L 8937838867) CREATININE (test code = 12.27 mg/dL 0.6-1.25 H 5100464161) CALCIUM (test code = 7.9 mg/dL 8.6-10.6 L 4933046521) eGFR Calculation mL/min/1.73m2 (Non-) (test code = 7112274051) eGFR Calculation mL/min/1.73m2 () (test code = 8449853413) DAVID (test code = DAVID) Association of [...] tests). Lab Interpretation Abnormal (test code = 36934-4) [facility]B, T.PRO, BILI T, BU/BC, ALT, AST, ALK PHOS)2019-05-24 13:32:00 Test Item Value Reference Range Interpretation Comments TOTAL BILI (test code = 8094358027) 0.4 mg/dL 0.1-1.1 BILI UNCON (test code = 6600048394) 0.0 mg/dL 0.1-1.1 L BILI CONJ (test code = 2621340294) 0.0 mg/dL 0-0.3 T PROTEIN (test code = 2605055106) 7.5 g/dL 6.3-8.2 ALBUMIN (test code = 0156973291) 4.5 g/dL 3.5-5 ALK PHOS (test code = 0099111107) 92 U/L 34-122 ALT(SGPT) (test code = 7936924857) 38 U/L 9-51 AST(SGOT) (test code = 1488802572) 45 U/L 13-40 H Lab Interpretation (test code = Abnormal 79062-2) [facility] WITH [id number] 13:22:00 Test Item Value Reference Range Interpretation Comments WBC (test code = See_Comment [Automated 2590-2) message] The sy stem which generated this [...] RDW-SD (test code = 45.5 fL 38.5-51.6 40582-7) RDW-CV (test code = 14.1 % 12.1-15.4 788-0) PLT (test code = See_Comment [Automated 777-3) message] The sy stem which generated this result transmitted reference range : 150 - 328 10*3/ ?L. The reference r radha was not used to interpret this result as normal/abnormal . MPV (test code = 10.7 fL 9.8-13 68952-0) NRBC/100 WBC (test See_Comment [Automat ed code = 0824005359) message] The system which generated this result transmitted reference range : 0.0 - 10.0 /100 WBCs. The refer ence range was not u sed to interpret th is result as normal/abnormal . NRBC x10^3 (test code <0.01 See_Comment [Auto mated = 3291379758) message] The s ystem which generated this result transmitted reference range : 10*3/?L. The reference range was not used to interpret this result as normal/abnormal . GRAN MAT (NEUT) % 63.5 % (test code = 770-8) IMM GRAN % (test code 0.80 % = 1002570007) LYMPH % (test code = 18.9 % 736-9) MONO % (test code = 10.9 % 5905-5) EOS % (test code = 4.7 % 713-8) BASO % (test code = 1.2 % 706-2) GRAN MAT x10^3(ANC) 4.19 10*3/uL 1.99-6.95 (test code = 6000759106) IMM GRAN x10^3 (test 0.05 10*3/uL 0-0.06 code = 9927039885) LYMPH x10^3 (test code 1.25 10*3/uL 1.09-3.23 = 731-0) MONO x10^3 (test code 0.72 10*3/uL 0.36-1.02 = 742-7) EOS x10^3 (test code = 0.31 10*3/uL 0.06-0.53 711-2) BASO x10^3 (test code 0.08 10*3/uL 0.01-0.09 = 704-7) Lab Interpretation Abnormal (test code = 86515-2) [facility] B Surface Antibody (HBsAb)2019-05-21 03:06:00 Test Item Value Reference Range Interpretation Comments HBsAB (test code = Negative 2928794944) HBsAb mIU/mL Semi-Quantitative (test code = 4748400413) DAVID (test code = Interpretation:?Hepatitis DAVID) B Surface Antibody? ? Negative - Patient is considered to be not immune to infection with HBV.? Positive - Anti-HBs detected at greater than or equal to 12 mIU/mL.?Patient is considered to be immune to infection with HBV.? [facility] B Surface Antigen (HBsAg)2019-05-21 02:48:00 Test Item Value Reference Range Interpretation Comments HBsAg Semi-Quantitative (test code = 5195-3) [facility] 16:47:00 Test Item Value Reference Range Interpretation Comments POCT GLU (test code = 0664388166) 314 mg/dL 70-110 H Lab Interpretation (test code = Abnormal 44165-8) [facility] (NA, K, CL, CO2, GLUCOSE, BUN, CREATININE, CA)2019-05-20 13:22:00 Test Item Value Reference Range Interpretation Comments NA (test code = 132 mmol/L 135-145 L 3814668983) K (test code = 6.0 mmol/L 3.5-5 H 9071575383) CL (test code = 101 mmol/L 98-108 1455467654) CO2 TOTAL (test code = 11 mmol/L 23-31 L 5449906737) AGAP (test code = 2-16 H 8309645750) BUN (test code = 89 mg/dL 7-23 H 9037728092) GLUCOSE (test code = 77 mg/dL 70-110 8518358369) CREATININE (test code = 13.90 mg/dL 0.6-1.25 H 0875465960) CALCIUM (test code = 7.3 mg/dL 8.6-10.6 L 1027932016) eGFR Calculation mL/min/1.73m2 (Non-) (test code = 4706949665) eGFR Calculation mL/min/1.73m2 () (test code = 2289339071) DAVID (test code = DAVID) Association of [...] tests). Lab Interpretation Abnormal (test code = 34692-1) [facility] WITH [id number] 12:53:00 Test Item Value Reference Range Interpretation Comments WBC (test code = See_Comment [Automated 3290-2) message] The sy stem which generated this [...] RDW-SD (test code = 43.7 fL 38.5-51.6 86918-1) RDW-CV (test code = 13.9 % 12.1-15.4 788-0) PLT (test code = See_Comment [Automated 777-3) message] The sy stem which generated this result transmitted reference range : 150 - 328 10*3/ ?L. The reference r radha was not used to interpret this result as normal/abnormal . MPV (test code = 10.3 fL 9.8-13 21772-1) NRBC/100 WBC (test See_Comment [Automat ed code = 6776451580) message] The system which generated this result transmitted reference range : 0.0 - 10.0 /100 WBCs. The refer ence range was not u sed to interpret th is result as normal/abnormal . NRBC x10^3 (test code <0.01 See_Comment [Auto mated = 4587037531) message] The s ystem which generated this result transmitted reference range : 10*3/?L. The reference range was not used to interpret this result as normal/abnormal . GRAN MAT (NEUT) % 64.1 % (test code = 770-8) IMM GRAN % (test code 0.50 % = 5584048891) LYMPH % (test code = 16.1 % 736-9) MONO % (test code = 13.4 % 5905-5) EOS % (test code = 5.0 % 713-8) BASO % (test code = 0.9 % 706-2) GRAN MAT x10^3(ANC) 3.74 10*3/uL 1.99-6.95 (test code = 9338419192) IMM GRAN x10^3 (test 0.03 10*3/uL 0-0.06 code = 2175389476) LYMPH x10^3 (test code 0.94 10*3/uL 1.09-3.23 L = 731-0) MONO x10^3 (test code 0.78 10*3/uL 0.36-1.02 = 742-7) EOS x10^3 (test code = 0.29 10*3/uL 0.06-0.53 711-2) BASO x10^3 (test code 0.05 10*3/uL 0.01-0.09 = 704-7) Lab Interpretation Abnormal (test code = 33429-9) [facility] GLUCOSE (AUTOMATED)2019-05-15 21:46:00 Test Item Value Reference Range Interpretation Comments POCT GLU (test code = 2911492677) 192 mg/dL 70-110 H Lab Interpretation (test code = Abnormal 27378-0) [facility] GLUCOSE (AUTOMATED)2019-05-15 16:39:00 Test Item Value Reference Range Interpretation Comments POCT GLU (test code = 5073836962) 188 mg/dL 70-110 H Lab Interpretation (test code = Abnormal 67984-8) [facility] GLUCOSE (AUTOMATED)2019-05-15 14:30:00 Test Item Value Reference Range Interpretation Comments POCT GLU (test code = 2970047580) 310 mg/dL 70-110 H Lab Interpretation (test code = Abnormal 85421-7) [facility]. METABOLIC PANEL (31453)2019-05-15 13:12:00 Test Item Value Reference Range Interpretation Comments NA (test code = 136 mmol/L 135-145 2464690368) K (test code = 5.9 mmol/L 3.5-5 H 7304355261) CL (test code = 99 mmol/L 98-108 4413494597) CO2 TOTAL (test code = 16 mmol/L 23-31 L 5806955014) AGAP (test code = 2-16 H 6022823194) BUN (test code = 66 mg/dL 7-23 H 5319728581) GLUCOSE (test code = 57 mg/dL 70-110 L 9070842869) CREATININE (test code = 11.41 mg/dL 0.6-1.25 H 2224482104) TOTAL BILI (test code = 0.4 mg/dL 0.1-1.8 6481327640) CALCIUM (test code = 7.8 mg/dL 8.6-10.6 L 0887642880) T PROTEIN (test code = 8.5 g/dL 6.3-8.2 H 4817527590) ALBUMIN (test code = 5.2 g/dL 3.5-5 H 0373424604) ALK PHOS (test code = 122 U/L 34-122 3347142282) ALT(SGPT) (test code = 19 U/L 9-51 1678587924) AST(SGOT) (test code = 36 U/L 13-40 6942073812) eGFR Calculation mL/min/1.73m2 (Non-) (test code = 9467963235) eGFR Calculation mL/min/1.73m2 () (test code = 7912614015) DAVID (test code = DAVID) Association of [...] tests). Lab Interpretation Abnormal (test code = 37675-3) [facility] WITH [id number] 12:59:00 Test Item Value Reference Range Interpretation [...] RDW-SD (test code = 41.4 fL 38.5-51.6 09062-7) RDW-CV (test code = 13.5 % 12.1-15.4 788-0) PLT (test code = See_Comment [Automated 777-3) message] The sy stem which generated this result transmitted reference range : 150 - 328 10*3/ ?L. The reference r radha was not used to interpret this result as normal/abnormal . MPV (test code = 9.7 fL 9.8-13 L 86170-1) NRBC/100 WBC (test See_Comment [Automat ed code = 2778638581) message] The system which generated this result transmitted reference range : 0.0 - 10.0 /100 WBCs. The refer ence range was not u sed to interpret th is result as normal/abnormal . NRBC x10^3 (test code <0.01 See_Comment [Auto mated = 3450355486) message] The s ystem which generated this result transmitted reference range : 10*3/?L. The reference range was not used to interpret this result as normal/abnormal . GRAN MAT (NEUT) % 66.5 % (test code = 770-8) IMM GRAN % (test code 0.70 % = 0290572776) LYMPH % (test code = 17.1 % 736-9) MONO % (test code = 9.3 % 5905-5) EOS % (test code = 5.5 % 713-8) BASO % (test code = 0.9 % 706-2) GRAN MAT x10^3(ANC) 4.50 10*3/uL 1.99-6.95 (test code = 3922841676) IMM GRAN x10^3 (test 0.05 10*3/uL 0-0.06 code = 3729914206) LYMPH x10^3 (test code 1.16 10*3/uL 1.09-3.23 = 731-0) MONO x10^3 (test code 0.63 10*3/uL 0.36-1.02 = 742-7) EOS x10^3 (test code = 0.37 10*3/uL 0.06-0.53 711-2) BASO x10^3 (test code 0.06 10*3/uL 0.01-0.09 = 704-7) Lab Interpretation Abnormal (test code = 46748-7) [facility] GLUCOSE (AUTOMATED)2019-05-15 12:25:00 Test Item Value Reference Range Interpretation Comments POCT GLU (test code = 6061103149) 56 mg/dL 70-110 L Lab Interpretation (test code = Abnormal 28573-8) [facility] GLUCOSE (AUTOMATED)2019-05-11 16:43:00 Test Item Value Reference Range Interpretation Comments POCT GLU (test code = 6743279185) 163 mg/dL 70-110 H Lab Interpretation (test code = Abnormal 92963-7) [facility] GLUCOSE (AUTOMATED)2019-05-11 12:56:00 Test Item Value Reference Range Interpretation Comments POCT GLU (test code = 0852412153) 307 mg/dL 70-110 H Lab Interpretation (test code = Abnormal 57521-6) [facility] GLUCOSE (AUTOMATED)2019-05-11 12:56:00 Test Item Value Reference Range Interpretation Comments POCT GLU (test code = 8542180439) 350 mg/dL 70-110 H Lab Interpretation (test code = Abnormal 87838-8) [facility] GLUCOSE (AUTOMATED)2019-05-11 01:33:00 Test Item Value Reference Range Interpretation Comments POCT GLU (test code = 4598156887) 409 mg/dL 70-110 H Lab Interpretation (test code = Abnormal 15803-3) [facility] METABOLIC PANEL (NA, K, CL, CO2, GLUCOSE, BUN, CREATININE, CA)2019-05-10 22:41:00 Test Item Value Reference Range Interpretation Comments NA (test code = 140 mmol/L 135-145 9081898394) K (test code = 4.1 mmol/L 3.5-5 8096114672) CL (test code = 105 mmol/L 98-108 2220972351) CO2 TOTAL (test code = 23 mmol/L 23-31 5756636966) AGAP (test code = 2-16 2956871347) BUN (test code = 34 mg/dL 7-23 H 1325587893) GLUCOSE (test code = 159 mg/dL 70-110 H 8047986661) CREATININE (test code = 6.29 mg/dL 0.6-1.25 H 8457373598) CALCIUM (test code = 7.0 mg/dL 8.6-10.6 L 9989188628) eGFR Calculation mL/min/1.73m2 (Non-) (test code = 6121340456) eGFR Calculation mL/min/1.73m2 () (test code = 1826920746) DAVID (test code = DAVID) Association of [...] tests). Lab Interpretation Abnormal (test code = 85821-8) [facility] [id number] 19:22:06* * * * * * * [...] right atrium. CONCLUSIONS: No acute cardiopulmonary disease. [facility], Radiant Results Inft User - 05/10/2019 2:24 [...] in the right atrium.CONCLUSIONS: No acute cardiopulmonary disease.[facility]RE[facility])2019-05-10 17:50:29These images do not require a Radiology diagnostic report.[facility] POCT GLUCOSE(AGE 0-30DAYS)2019-05-10 16:03:00 Test Item Value Reference Range Interpretation Comments POCT Glu (age 0-30days) (test code 164 mg/dl 40-110 A = 3343) Lab Interpretation (test code = Abnormal 01060-9) [facility]10 13:06:00 Test Item Value Reference Range Interpretation Comments POCT GLU (test code = 5882728589) 343 mg/dL 70-110 H Lab Interpretation (test code = Abnormal 41243-7) [facility] GLUCOSE (AUTOMATED)2019-05-10 09:33:00 Test Item Value Reference Range Interpretation Comments POCT GLU (test code = 0720487257) 392 mg/dL 70-110 H Lab Interpretation (test code = Abnormal 95772-0) [facility] GLUCOSE (AUTOMATED)2019-05-10 01:10:00 Test Item Value Reference Range Interpretation Comments POCT GLU (test code = 6354927809) 332 mg/dL 70-110 H Lab Interpretation (test code = Abnormal 05928-9) [facility] GLUCOSE (AUTOMATED)2019-05-09 21:28:00 Test Item Value Reference Range Interpretation Comments POCT GLU (test code = 4394038929) 97 mg/dL 70-110 Lab Interpretation (test code = Normal 52008-9) [facility] GLUCOSE (AUTOMATED)2019-05-09 16:45:00 Test Item Value Reference Range Interpretation Comments POCT GLU (test code = 9713089997) 248 mg/dL 70-110 H Lab Interpretation (test code = Abnormal 68151-2) [facility] GLUCOSE (AUTOMATED)2019-05-09 15:16:00 Test Item Value Reference Range Interpretation Comments POCT GLU (test code = 7795281014) 378 mg/dL 70-110 H Lab Interpretation (test code = Abnormal 84742-7) [facility] GLUCOSE (AUTOMATED)2019-05-09 15:16:00 Test Item Value Reference Range Interpretation Comments POCT GLU (test code = 4235775249) 391 mg/dL 70-110 H Lab Interpretation (test code = Abnormal 35140-0) [facility] (NA, K, CL, CO2, GLUCOSE, BUN, CREATININE, CA)2019-05-09 13:31:00 Test Item Value Reference Range Interpretation Comments NA (test code = 137 mmol/L 135-145 7348294644) K (test code = 6.0 mmol/L 3.5-5 H 7970263629) CL (test code = 107 mmol/L 98-108 0258324018) CO2 TOTAL (test code = 12 mmol/L 23-31 L 5677847477) AGAP (test code = 2-16 H 9384766089) BUN (test code = 83 mg/dL 7-23 H 2538828435) GLUCOSE (test code = 149 mg/dL 70-110 H 4203980617) CREATININE (test code = 14.15 mg/dL 0.6-1.25 H 7290651170) CALCIUM (test code = 7.2 mg/dL 8.6-10.6 L 5038306901) eGFR Calculation mL/min/1.73m2 (Non-) (test code = 4645822348) eGFR Calculation mL/min/1.73m2 () (test code = 9422714900) DAVID (test code = DAVID) Association of [...] tests). Lab Interpretation Abnormal (test code = 47366-5) [facility]. METABOLIC PANEL (34599)2019-05-07 12:30:00 Test Item Value Reference Range Interpretation Comments NA (test code = 137 mmol/L 135-145 0042467736) K (test code = 5.4 mmol/L 3.5-5 H 3697051084) CL (test code = 104 mmol/L 98-108 1590370838) CO2 TOTAL (test code = 14 mmol/L 23-31 L 9041694641) AGAP (test code = 2-16 H 4531910950) BUN (test code = 63 mg/dL 7-23 H 4721045830) GLUCOSE (test code = 170 mg/dL 70-110 H 0015411595) CREATININE (test code = 11.20 mg/dL 0.6-1.25 H 9770457992) TOTAL BILI (test code = 0.2 mg/dL 0.1-1.9 7771891558) CALCIUM (test code = 7.9 mg/dL 8.6-10.6 L 4696357138) T PROTEIN (test code = 7.3 g/dL 6.3-8.2 0857447617) ALBUMIN (test code = 4.5 g/dL 3.5-5 7883492608) ALK PHOS (test code = 148 U/L 34-122 H 1938423551) ALT(SGPT) (test code = 39 U/L 9-51 8156712727) AST(SGOT) (test code = 24 U/L 13-40 9616743107) eGFR Calculation mL/min/1.73m2 (Non-) (test code = 8658797911) eGFR Calculation mL/min/1.73m2 () (test code = 6981434892) DAVID (test code = DAVID) Association of [...] tests). Lab Interpretation Abnormal (test code = 88801-5) [facility] [id number] 12:06:00 Test Item Value Reference Range Interpretation Comments WBC (test code = 6690-2) See_Comment [A utomated message] The system [employer] generated this result transmit reyna reference range : 4.20 - 10.70 10*3/?L. The reference range was not used to interpret this result as normal/abnormal . RBC (test code = 789-8) See_Comment L [Au tomated message] The system [employer] generated this result transmit reyna reference range [...] 777-3) See_Comment [Au tomated message] The system [employer] generated this result transmit reyna reference range : 150 - 328 10*3/?L. The reference range was not used to interpret this result as normal/abnormal . MPV (test code = 9.9 fL 9.8-13 45659-6) RDW-CV (test code = 13.2 % 12.1-15.4 788-0) RDW-SD (test code = 41.8 fL 38.5-51.6 80295-8) NRBC x10^3 (test code = <0.01 See_Comment [Au tomated message] 1835594827) The system [employer] generated this result transmit reyna reference range : 10*3/?L. The reference range was not used to interpret this result as normal/abnormal . NRBC/100 WBC (test code See_Comment [Au tomated message] = 3475110091) The system [employer] generated this result transmit reyna reference range : 0.0 - 10.0 /100 WBC s. The reference r radha was not used to interpret this result as normal/abnormal . IPF % (test code = 1.2-10.7 4557314007) Lab Interpretation (test Abnormal code = 17163-8) [facility] GLUCOSE (AUTOMATED)2019-05-03 20:40:00 Test Item Value Reference Range Interpretation Comments POCT GLU (test code = 1778923944) 116 mg/dL 70-110 H Lab Interpretation (test code = Abnormal 35817-8) [facility] GLUCOSE (AUTOMATED)2019-05-03 17:25:00 Test Item Value Reference Range Interpretation Comments POCT GLU (test code = 2301015426) 106 mg/dL 70-110 Lab Interpretation (test code = Normal 19797-4) [facility] GLUCOSE (AUTOMATED)2019-05-03 17:25:00 Test Item Value Reference Range Interpretation Comments POCT GLU (test code = 8578446419) 213 mg/dL 70-110 H Lab Interpretation (test code = Abnormal 59177-5) [facility] Metabolic Panel (NA, K, CL, CO2, GLUCOSE, BUN, CREATININE, CA)2019-05-03 13:19:00 Test Item Value Reference Range Interpretation Comments NA (test code = 137 mmol/L 135-145 8159652964) K (test code = 5.5 mmol/L 3.5-5 H 0668634775) CL (test code = 108 mmol/L 98-108 0003576491) CO2 TOTAL (test code = 9 mmol/L 23-31 L 3078696761) AGAP (test code = 2-16 H 2594160071) BUN (test code = 91 mg/dL 7-23 H 4507270771) GLUCOSE (test code = 99 mg/dL 70-110 0867298511) CREATININE (test code = 12.92 mg/dL 0.6-1.25 H 1734946788) CALCIUM (test code = 6.8 mg/dL 8.6-10.6 L 5349031792) eGFR Calculation mL/min/1.73m2 (Non-) (test code = 8421966560) eGFR Calculation mL/min/1.73m2 () (test code = 9965115104) DAVID (test code = DAVID) Association of [...] tests). Lab Interpretation Abnormal (test code = 31165-8) [facility] (ALB, T.PRO, BILI T, BU/BC, ALT, AST, ALK PHOS)2019-05-03 13:06:00 Test Item Value Reference Range Interpretation Comments TOTAL BILI (test code = 4661863088) 0.3 mg/dL 0.1-1.1 BILI UNCON (test code = 9173895068) 0.0 mg/dL 0.1-1.1 L BILI CONJ (test code = 1444075319) 0.0 mg/dL 0-0.3 T PROTEIN (test code = 2008133695) 7.0 g/dL 6.3-8.2 ALBUMIN (test code = 4103327151) 4.2 g/dL 3.5-5 ALK PHOS (test code = 0412290758) 153 U/L 34-122 H ALT(SGPT) (test code = 9660810846) 51 U/L 9-51 AST(SGOT) (test code = 9025067966) 43 U/L 13-40 H Lab Interpretation (test code = Abnormal 79125-6) [facility] WITH [id number] 12:51:00 Test Item Value Reference Range Interpretation [...] RDW-SD (test code = 42.1 fL 38.5-51.6 60088-2) RDW-CV (test code = 13.3 % 12.1-15.4 788-0) PLT (test code = See_Comment [Automated 777-3) message] The sy stem which generated this result transmitted reference range : 150 - 328 10*3/ ?L. The reference r radha was not used to interpret this result as normal/abnormal . MPV (test code = 10.7 fL 9.8-13 94172-5) NRBC/100 WBC (test See_Comment [Automat ed code = 0364037002) message] The system which generated this result transmitted reference range : 0.0 - 10.0 /100 WBCs. The refer ence range was not u sed to interpret th is result as normal/abnormal . NRBC x10^3 (test code <0.01 See_Comment [Auto mated = 9825437130) message] The s [employer] which generated this result transmitted reference range : 10*3/?L. The reference range was not used to interpret this result as normal/abnormal . GRAN MAT (NEUT) % 62.0 % (test code = 770-8) IMM GRAN % (test code 1.00 % = 3356335667) LYMPH % (test code = 20.3 % 736-9) MONO % (test code = 10.2 % 5905-5) EOS % (test code = 6.1 % 713-8) BASO % (test code = 0.4 % 706-2) GRAN MAT x10^3(ANC) 4.25 10*3/uL 1.99-6.95 (test code = 1494895831) IMM GRAN x10^3 (test 0.07 10*3/uL 0-0.06 H code = 8757175067) LYMPH x10^3 (test code 1.39 10*3/uL 1.09-3.23 = 731-0) MONO x10^3 (test code 0.70 10*3/uL 0.36-1.02 = 742-7) EOS x10^3 (test code = 0.42 10*3/uL 0.06-0.53 711-2) BASO x10^3 (test code 0.03 10*3/uL 0.01-0.09 = 704-7) Lab Interpretation Abnormal (test code = 19727-7) [facility] GLUCOSE (AUTOMATED)2019-04-29 17:33:00 Test Item Value Reference Range Interpretation Comments POCT GLU (test code = 1120381188) 200 mg/dL 70-110 H Lab Interpretation (test code = Abnormal 19294-2) [facility] GLUCOSE (AUTOMATED)2019-04-29 13:02:00 Test Item Value Reference Range Interpretation Comments POCT GLU (test code = 9484830714) 100 mg/dL 70-110 Lab Interpretation (test code = Normal 68310-0) [facility] METABOLIC PANEL (NA, K, CL, CO2, GLUCOSE, BUN, CREATININE, CA)2019-04-29 11:40:00 Test Item Value Reference Range Interpretation Comments NA (test code = 133 mmol/L 135-145 L 8487250620) K (test code = 6.1 mmol/L 3.5-5 HH 5340283414) CL (test code = 102 mmol/L 98-108 1673930729) CO2 TOTAL (test code = 11 mmol/L 23-31 L 2776238520) AGAP (test code = 2-16 H 3657772069) BUN (test code = 98 mg/dL 7-23 H 1185448836) GLUCOSE (test code = 131 mg/dL 70-110 H 4775672027) CREATININE (test code = 11.78 mg/dL 0.6-1.25 H 4875617419) CALCIUM (test code = 7.3 mg/dL 8.6-10.6 L 4886461920) eGFR Calculation mL/min/1.73m2 (Non-) (test code = 7599179651) eGFR Calculation mL/min/1.73m2 () (test code = 3477923399) DAVID (test code = DAVID) Association of [...] tests). Lab Interpretation Abnormal (test code = 59116-1) [facility] WITH [id number] 11:27:00 Test Item Value Reference Range Interpretation [...] RDW-SD (test code = 41.4 fL 38.5-51.6 44796-1) RDW-CV (test code = 13.1 % 12.1-15.4 788-0) PLT (test code = See_Comment [Automated 777-3) message] The sy stem which generated this result transmitted reference range : 150 - 328 10*3/ ?L. The reference r radha was not used to interpret this result as normal/abnormal . MPV (test code = 9.7 fL 9.8-13 L 39701-7) NRBC/100 WBC (test See_Comment [Automat ed code = 9905446801) message] The system which generated this result transmitted reference range : 0.0 - 10.0 /100 WBCs. The refer ence range was not u sed to interpret th is result as normal/abnormal . NRBC x10^3 (test code <0.01 See_Comment [Auto mated = 9113283308) message] The s ystem which generated this result transmitted reference range : 10*3/?L. The reference range was not used to interpret this result as normal/abnormal . GRAN MAT (NEUT) % 72.0 % (test code = 770-8) IMM GRAN % (test code 1.10 % = 2162317197) LYMPH % (test code = 15.3 % 736-9) MONO % (test code = 5.7 % 5905-5) EOS % (test code = 5.3 % 713-8) BASO % (test code = 0.6 % 706-2) GRAN MAT x10^3(ANC) 5.67 10*3/uL 1.99-6.95 (test code = 4548572990) IMM GRAN x10^3 (test 0.09 10*3/uL 0-0.06 H code = 2376501479) LYMPH x10^3 (test code 1.21 10*3/uL 1.09-3.23 = 731-0) MONO x10^3 (test code 0.45 10*3/uL 0.36-1.02 = 742-7) EOS x10^3 (test code = 0.42 10*3/uL 0.06-0.53 711-2) BASO x10^3 (test code 0.05 10*3/uL 0.01-0.09 = 704-7) Lab Interpretation Abnormal (test code = 36424-5) [facility] GLUCOSE (AUTOMATED)2019-04-24 21:54:00 Test Item Value Reference Range Interpretation Comments POCT GLU (test code = 3781260262) 148 mg/dL 70-110 H Lab Interpretation (test code = Abnormal 20454-7) [facility] GLUCOSE (AUTOMATED)2019-04-24 16:54:00 Test Item Value Reference Range Interpretation Comments POCT GLU (test code = 7605731910) 218 mg/dL 70-110 H Lab Interpretation (test code = Abnormal 29839-4) [facility] GLUCOSE (AUTOMATED)2019-04-24 16:54:00 Test Item Value Reference Range Interpretation Comments POCT GLU (test code = 0252434757) 104 mg/dL 70-110 Lab Interpretation (test code = Normal 72524-6) [facility] Metabolic Panel (NA, K, CL, CO2, GLUCOSE, BUN, CREATININE, CA)2019-04-24 13:00:00 Test Item Value Reference Range Interpretation Comments NA (test code = 127 mmol/L 135-145 L 9211034533) K (test code = 5.0 mmol/L 3.5-5 4366303892) CL (test code = 94 mmol/L 98-108 L 1345308624) CO2 TOTAL (test code = 13 mmol/L 23-31 L 5315021903) AGAP (test code = 2-16 H 4862418314) BUN (test code = 89 mg/dL 7-23 H 9336961891) GLUCOSE (test code = 303 mg/dL 70-110 H 9129235569) CREATININE (test code = 10.75 mg/dL 0.6-1.25 H 8385091913) CALCIUM (test code = 6.8 mg/dL 8.6-10.6 L 5167476451) eGFR Calculation mL/min/1.73m2 (Non-) (test code = 8037378400) eGFR Calculation mL/min/1.73m2 () (test code = 4315453407) DAVID (test code = DAVID) Association of [...] tests). Lab Interpretation Abnormal (test code = 36266-0) [facility] GLUCOSE (AUTOMATED)2019-04-21 01:52:00 Test Item Value Reference Range Interpretation Comments POCT GLU (test code = 6106832176) 156 mg/dL 70-110 H Lab Interpretation (test code = Abnormal 64703-7) [facility] GLUCOSE (AUTOMATED)2019-04-20 21:32:00 Test Item Value Reference Range Interpretation Comments POCT GLU (test code = 7889698104) 182 mg/dL 70-110 H Lab Interpretation (test code = Abnormal 76212-1) [facility] GLUCOSE (AUTOMATED)2019-04-20 20:37:00 Test Item Value Reference Range Interpretation Comments POCT GLU (test code = 7836483178) 216 mg/dL 70-110 H Lab Interpretation (test code = Abnormal 05636-7) [facility] Metabolic Panel (NA, K, CL, CO2, GLUCOSE, BUN, CREATININE, CA)2019-04-20 14:24:00 Test Item Value Reference Range Interpretation Comments NA (test code = 135 mmol/L 135-145 4535202715) K (test code = 5.8 mmol/L 3.5-5 H 3290366341) CL (test code = 105 mmol/L 98-108 3570110745) CO2 TOTAL (test code = 8 mmol/L 23-31 L 1064329305) AGAP (test code = 2-16 H 3676261611) BUN (test code = 90 mg/dL 7-23 H 7731968162) GLUCOSE (test code = 191 mg/dL 70-110 H 2217908519) CREATININE (test code = 13.86 mg/dL 0.6-1.25 H 8611775598) CALCIUM (test code = 7.3 mg/dL 8.6-10.6 L 6982508310) eGFR Calculation mL/min/1.73m2 (Non-) (test code = 5688460145) eGFR Calculation mL/min/1.73m2 () (test code = 0244565419) DAVID (test code = DAVID) Association of [...] tests). Lab Interpretation Abnormal (test code = 45599-7) [facility] (ALB, T.PRO, BILI T, BU/BC, ALT, AST, ALK PHOS)2019-04-20 14:17:00 Test Item Value Reference Range Interpretation Comments TOTAL BILI (test code = 5990258899) 0.3 mg/dL 0.1-1.1 BILI UNCON (test code = 2666607100) 0.0 mg/dL 0.1-1.1 L BILI CONJ (test code = 6428935720) 0.0 mg/dL 0-0.3 T PROTEIN (test code = 4101504096) 7.1 g/dL 6.3-8.2 ALBUMIN (test code = 6873106759) 4.4 g/dL 3.5-5 ALK PHOS (test code = 3961393283) 131 U/L 34-122 H ALT(SGPT) (test code = 4450727810) 30 U/L 9-51 AST(SGOT) (test code = 0251855023) 18 U/L 13-40 Lab Interpretation (test code = Abnormal 21626-3) [facility] [id number] 13:35:00 Test Item Value Reference Range Interpretation Comments WBC (test code = See_Comment [Automated 7690-2) message] The sy stem which generated this result transmitted reference range : 4.20 - 10.70 10*3/?L. The reference range was not used to interpret this result as normal/abnormal . RBC (test code = See_Comment L [Automated 919-8) message] The sy stem which generated this [...] RDW-SD (test code = 42.6 fL 38.5-51.6 03000-7) RDW-CV (test code = 13.2 % 12.1-15.4 788-0) PLT (test code = See_Comment L [Automated 777-3) message] The sy stem which generated this result transmitted reference range : 150 - 328 10*3/ ?L. The reference r radha was not used to interpret this result as normal/abnormal . MPV (test code = 11.0 fL 9.8-13 05403-0) NRBC/100 WBC (test See_Comment [Automat ed code = 9289969225) message] The system which generated this result transmitted reference range : 0.0 - 10.0 /100 WBCs. The refer ence range was not u sed to interpret th is result as normal/abnormal . NRBC x10^3 (test code <0.01 See_Comment [Auto mated = 4406481146) message] The s ystem which generated this result transmitted reference range : 10*3/?L. The reference range was not used to interpret this result as normal/abnormal . GRAN MAT (NEUT) % 66.9 % (test code = 770-8) IMM GRAN % (test code 0.80 % = 5632871558) LYMPH % (test code = 16.8 % 736-9) MONO % (test code = 9.1 % 5905-5) EOS % (test code = 5.6 % 713-8) BASO % (test code = 0.8 % 706-2) GRAN MAT x10^3(ANC) 4.19 10*3/uL 1.99-6.95 (test code = 4759585879) IMM GRAN x10^3 (test 0.05 10*3/uL 0-0.06 code = 6298321952) LYMPH x10^3 (test code 1.05 10*3/uL 1.09-3.23 L = 731-0) MONO x10^3 (test code 0.57 10*3/uL 0.36-1.02 = 742-7) EOS x10^3 (test code = 0.35 10*3/uL 0.06-0.53 711-2) BASO x10^3 (test code 0.05 10*3/uL 0.01-0.09 = 704-7) Lab Interpretation Abnormal (test code = 46889-1) [facility] GLUCOSE (AUTOMATED)2019-04-15 20:35:00 Test Item Value Reference Range Interpretation Comments POCT GLU (test code = 3797156309) 109 mg/dL 70-110 Lab Interpretation (test code = Normal 17771-8) [facility] GLUCOSE (AUTOMATED)2019-04-15 16:41:00 Test Item Value Reference Range Interpretation Comments POCT GLU (test code = 3628067378) 279 mg/dL 70-110 H Lab Interpretation (test code = Abnormal 97376-2) [facility] GLUCOSE (AUTOMATED)2019-04-15 12:52:00 Test Item Value Reference Range Interpretation Comments POCT GLU (test code = 1527736724) 258 mg/dL 70-110 H Lab Interpretation (test code = Abnormal 90794-0) [facility] Metabolic Panel (NA, K, CL, CO2, GLUCOSE, BUN, CREATININE, CA)2019-04-15 11:47:00 Test Item Value Reference Range Interpretation Comments NA (test code = 135 mmol/L 135-145 0747585184) K (test code = 5.4 mmol/L 3.5-5 H 3450146865) CL (test code = 103 mmol/L 98-108 5178432488) CO2 TOTAL (test code = 11 mmol/L 23-31 L 1176940148) AGAP (test code = 2-16 H 1295036157) BUN (test code = 89 mg/dL 7-23 H 0670398696) GLUCOSE (test code = 309 mg/dL 70-110 H 5750637572) CREATININE (test code = 12.30 mg/dL 0.6-1.25 H 8669885289) CALCIUM (test code = 7.3 mg/dL 8.6-10.6 L 1182446467) eGFR Calculation mL/min/1.73m2 (Non-) (test code = 8383763358) eGFR Calculation mL/min/1.73m2 () (test code = 5712201876) DAVID (test code = DAVID) Association of [...] tests). Lab Interpretation Abnormal (test code = 43179-9) [facility] (ALB, T.PRO, BILI T, BU/BC, ALT, AST, ALK PHOS)2019-04-15 11:47:00 Test Item Value Reference Range Interpretation Comments TOTAL BILI (test code = 8787116067) 0.3 mg/dL 0.1-1.1 BILI UNCON (test code = 7805872770) 0.0 mg/dL 0.1-1.1 L BILI CONJ (test code = 0481770058) 0.0 mg/dL 0-0.3 T PROTEIN (test code = 6709132434) 7.2 g/dL 6.3-8.2 ALBUMIN (test code = 4677660141) 4.5 g/dL 3.5-5 ALK PHOS (test code = 4609743911) 208 U/L 34-122 H ALT(SGPT) (test code = 1633184727) 45 U/L 9-51 AST(SGOT) (test code = 6535650548) 38 U/L 13-40 Lab Interpretation (test code = Abnormal 39817-5) [facility] WITH [id number] 11:34:00 Test Item Value Reference Range Interpretation [...] RDW-SD (test code = 44.0 fL 38.5-51.6 76860-8) RDW-CV (test code = 13.6 % 12.1-15.4 788-0) PLT (test code = See_Comment [Automated 777-3) message] The sy stem which generated this result transmitted reference range : 150 - 328 10*3/ ?L. The reference r radha was not used to interpret this result as normal/abnormal . MPV (test code = 10.1 fL 9.8-13 77919-5) NRBC/100 WBC (test See_Comment [Automat ed code = 9012559113) message] The system which generated this result transmitted reference range : 0.0 - 10.0 /100 WBCs. The refer ence range was not u sed to interpret th is result as normal/abnormal . NRBC x10^3 (test code <0.01 See_Comment [Auto mated = 0156288296) message] The s ystem which generated this result transmitted reference range : 10*3/?L. The reference range was not used to interpret this result as normal/abnormal . GRAN MAT (NEUT) % 64.6 % (test code = 770-8) IMM GRAN % (test code 0.20 % = 7377034641) LYMPH % (test code = 18.9 % 736-9) MONO % (test code = 10.2 % 5905-5) EOS % (test code = 5.3 % 713-8) BASO % (test code = 0.8 % 706-2) GRAN MAT x10^3(ANC) 3.43 10*3/uL 1.99-6.95 (test code = 7353217691) IMM GRAN x10^3 (test <0.03 0-0.06 code = 5936249410) LYMPH x10^3 (test code 1.00 10*3/uL 1.09-3.23 L = 731-0) MONO x10^3 (test code 0.54 10*3/uL 0.36-1.02 = 742-7) EOS x10^3 (test code = 0.28 10*3/uL 0.06-0.53 711-2) BASO x10^3 (test code 0.04 10*3/uL 0.01-0.09 = 704-7) Lab Interpretation Abnormal (test code = 08434-2) [facility] [id number] 11:00:00 Test Item Value Reference Range Interpretation Comments CULTURE (BEAKER) (test No growth in 5 days code = 1095) BLOOD [id number] 11:00:00 Test Item Value Reference Range Interpretation Comments CULTURE (BEAKER) (test No growth in 5 days code = 1095) ISLET CELL AB [id number] 09:29:00 Test Item Value Reference Range Interpretation Comments ISLET CELL AB See individual AUTOVERIFICATION (test panel test results. code = 2556) POCT-GLUCOSE [id number] 17:52:00 Test Item Value Reference Range Interpretation Comments POC-GLUCOSE METER 360 mg/dL 70-110 H TESTED AT [facility] 67 ([facility]) (test code = [facility] 1538) [address] CLOSTRIDIUM DIFFICILE TOXIN [id number] 14:10:00 Test Item Value Reference Range Interpretation Comments CLOSTRIDIUM DIFFICILE TOXIN, PCR Not Detected Not Detected ([facility]) (test code = 1525) This qualitative [...] of a positive result is not recommended.POCT-GLUCOSE [id number] 13:02:00 Test Item Value Reference Range Interpretation Comments POC-GLUCOSE METER 265 mg/dL 70-110 H TESTED AT [facility] 67 ([facility]) (test code = [facility] [place] 1538) [address] POCT-GLUCOSE [id number] 07:13:00 Test Item Value Reference Range Interpretation Comments POC-GLUCOSE METER 70 mg/dL 70-110 TESTED AT [facility] 6720 ([facility]) (test code = [facility] [place] [facility] [address] 1538) VANCOMYCIN LEVEL, [id number] 06:54:00 Test Item Value Reference Range Interpretation Comments VANCOMYCIN RANDOM ([facility]) (test 15.2 ug/mL code = 523) Reference Range: No NormalsBASIC METABOLIC [id number] 06:41:00 Test Item Value Reference Range Interpretation Comments SODIUM ([facility]) 135 meq/L 136-145 L (test code = [...] NOT APPLICABLE FOR DIALYSIS PATIEN TS. POCT-GLUCOSE [id number] 06:40:00 Test Item Value Reference Range Interpretation Comments POC-GLUCOSE METER 44 mg/dL 70-110 L Notified Pau Bryant MD/TESTED AT (BEAKER) (test code = [facility] [address] 1538) [facility] 7703 0 POCT-GLUCOSE [id number] 06:36:00 Test Item Value Reference Range Interpretation Comments POC-GLUCOSE METER 54 mg/dL 70-110 L Notified Pau Bryant MD/TESTED AT (BEAKER) (test code = [facility] 67[address] [facility] 1538) [facility] 7703 0 BASIC METABOLIC [id number] 06:35:00 Test Item Value Reference Range Interpretation [...] NOT APPLICABLE FOR DIALYSIS PATIEN TS. POCT-GLUCOSE [id number] 21:14:00 Test Item Value Reference Range Interpretation Comments POC-GLUCOSE METER 396 mg/dL 70-110 H Notified R Manny MD/TESTED ([facility]) (test code = AT [place] [address]418) [facility] 7703 0 POCT-GLUCOSE [id number] 18:02:00 Test Item Value Reference Range Interpretation Comments POC-GLUCOSE METER 363 mg/dL 70-110 H Notified R Manny MD/TESTED ([facility]) (test code = AT [place] [address]) [facility] 7703 0 BLOOD [id number] 18:00:00 Test Item Value Reference Range Interpretation Comments CULTURE (BEAKER) (test No growth in 5 days code = 1095) BLOOD [id number] 18:00:00 Test Item Value Reference Range Interpretation Comments CULTURE (BEAKER) (test No growth in 5 days code = 1095) POCT-GLUCOSE [id number] 13:08:00 Test Item Value Reference Range Interpretation Comments POC-GLUCOSE METER 188 mg/dL 70-110 H TESTED AT [place] [address]5820 ([facility]) (test code = [place] [address]) [address] POCT-GLUCOSE [id number] 11:42:00 Test Item Value Reference Range Interpretation Comments POC-GLUCOSE METER 194 mg/dL 70-110 H TESTED AT [place] [address] ([facility]) (test code = [place] [address]) [address] VANCOMYCIN LEVEL, [id number] 09:58:00 Test Item Value Reference Range Interpretation Comments [facility] (test 12.9 ug/mL code = 523) Reference Range: No NormalsTo be drawn BEFORE dialysis in the dialysis unit. Thank youPOCT-GLUCOSE [id number] 08:52:00 Test Item Value Reference Range Interpretation Comments POC-GLUCOSE METER 272 mg/dL 70-110 H TESTED AT [place] [address] ([facility]) (test code = [facility] 1538) [address] BASIC METABOLIC [id number] 05:09:00 Test Item Value Reference Range Interpretation [...] 358) GLUCOSE RANDOM 225 mg/dL 70-105 H (AKER) (test code = 652) CALCIUM (BEAKER) 7.9 mg/dL 8.4-10.2 L (test code = 697) EGFR ([facility]) (test 9 mL/min/1.73 ESTIMAT ED GFR IS code = 1092) sq m NOT ACCURATE CREATININE CLEARANCE IN PREDICTING GLOMERULAR FILTRATION RATE . ESTIMATED GFR I S NOT APPLICABLE FOR DIALYSIS PATIEN TS. POCT-GLUCOSE [id number] 21:32:00 Test Item Value Reference Range Interpretation Comments POC-GLUCOSE METER 388 mg/dL 70-110 H TESTED AT [place] [address] ([facility]) (test code = [facility] 1538) [address] POCT-GLUCOSE [id number] 18:31:00 Test Item Value Reference Range Interpretation Comments POC-GLUCOSE METER 247 mg/dL 70-110 H TESTED AT [place] [address] ([facility]) (test code = [facility] 1538) [address] POCT-GLUCOSE [id number] 10:58:00 Test Item Value Reference Range Interpretation Comments POC-GLUCOSE METER 213 mg/dL 70-110 H TESTED AT [place] [address] ([facility]) (test code = [facility] 1538) [address] CBC W/PLT COUNT & AUTO [id number] 07:02:00 Test Item Value Reference Range Interpretation Comments WHITE BLOOD CELL COUNT (AKER) 5.8 K/ L 4.0-10.0 (test code = [...] 0.00-0.20 (test code = 417) 0.00BASI METABOLIC [id number] 06:25:00 Test Item Value Reference Range Interpretation [...] S NOT APPLICABLE FOR DIALYSIS PATIEN TS. [id number] 06:24:00 Test Item Value Reference Range Interpretation Comments PHOSPHORUS (BEAKER) (test code = 3.8 mg/dL 2.3-4.7 604) [id number] 06:24:00 Test Item Value Reference Range Interpretation Comments MAGNESIUM (BEAKER) (test code = 2.2 mg/dL 1.6-2.6 627) POCT-GLUCOSE [id number] 21:55:00 Test Item Value Reference Range Interpretation Comments POC-GLUCOSE METER 270 mg/dL 70-110 H TESTED AT [facility] 6720 (BEAKER) (test code = [place] [facility] 1538) [address] POCT-GLUCOSE [id number] 18:12:00 Test Item Value Reference Range Interpretation Comments POC-GLUCOSE METER 124 mg/dL 70-110 H TESTED AT [facility] 6720 (BEAKER) (test code = [place] 1538) [address] POCT-GLUCOSE [id number] 16:27:00 Test Item Value Reference Range Interpretation Comments POC-GLUCOSE METER 135 mg/dL 70-110 H TESTED AT [facility] 6720 (BEAKER) (test code = [place] [facility] 1538) [address] POCT-GLUCOSE [id number] 14:10:00 Test Item Value Reference Range Interpretation Comments POC-GLUCOSE METER 219 mg/dL 70-110 H TESTED AT [place] [address] (BEAKER) (test code = [facility] [place] [facility] 1538) [address] POCT-GLUCOSE [id number] 12:01:00 Test Item Value Reference Range Interpretation Comments POC-GLUCOSE METER 162 mg/dL 70-110 H TESTED AT [place] [address] (BEAKER) (test code = [facility] 1538) [address] POCT-GLUCOSE [id number] 09:51:00 Test Item Value Reference Range Interpretation Comments POC-GLUCOSE METER 220 mg/dL 70-110 H TESTED AT [place] [address] (BEAKER) (test code = [facility] 1538) [address] POCT-GLUCOSE [id number] 07:48:00 Test Item Value Reference Range Interpretation Comments POC-GLUCOSE METER 151 mg/dL 70-110 H TESTED AT [place] [address] (BEAKER) (test code = [facility] 1538) [address] BASIC METABOLIC [id number] 07:36:00 Test Item Value Reference Range Interpretation [...] NOT APPLICABLE FOR DIALYSIS PATIEN TS. POCT-GLUCOSE [id number] 07:06:00 Test Item Value Reference Range Interpretation Comments POC-GLUCOSE METER 98 mg/dL 70-110 TESTED AT [place] [address] (BEAKER) (test code = [place] [facility] [address] 1538) POCT-GLUCOSE [id number] 06:27:00 Test Item Value Reference Range Interpretation Comments POC-GLUCOSE METER 63 mg/dL 70-110 L TESTED AT [place] [address] ([facility]) (test code = [facility] [facility] [address] 1538) VANCOMYCIN LEVEL, [id number] 04:31:00 Test Item Value Reference Range Interpretation Comments VANCOMYCIN RANDOM ([facility]) (test 20.8 ug/mL code = 523) Reference Range: No [id number] 04:20:00 Test Item Value Reference Range Interpretation Comments PHOSPHORUS ([facility]) (test code = 5.4 mg/dL 2.3-4.7 H 604) [id number] 04:20:00 Test Item Value Reference Range Interpretation Comments MAGNESIUM ([facility]) (test code = 2.1 mg/dL 1.6-2.6 627) POCT-GLUCOSE [id number] 04:16:00 Test Item Value Reference Range Interpretation Comments POC-GLUCOSE METER 99 mg/dL 70-110 TESTED AT [place] [address] ([facility]) (test code = [facility] [place] [facility] [address] 1538) CBC W/PLT COUNT & AUTO [id number] 04:07:00 Test Item Value Reference Range Interpretation [...] L 0.00-0.20 (test code = 417) 0.00POCT-GLUCOSE [id number] 02:10:00 Test Item Value Reference Range Interpretation Comments POC-GLUCOSE METER 132 mg/dL 70-110 H TESTED AT [facility] 6720 (BEAKER) (test code = [place] 1538) [address] SPUTUM CULTURE + GRAM [id number] 00:32:00 Test Item Value Reference Range Interpretation Comments CULTURE (BEAKER) 4+ Normal respiratory (test code = 1095) jenelle present GRAM STAIN RESULT 3+ White blood cells (BEAKER) (test code = seen 1123) GRAM STAIN RESULT 0-5 epithelial cells (BEAKER) (test code = 26480) GRAM STAIN RESULT 2+ gram negative rods (BEAKER) (test code = 19495) GRAM STAIN RESULT 3+ gram positive rods (BEAKER) (test code = 675616) GRAM STAIN RESULT 2+ gram positive cocci (BEAKER) (test code = in pairs and clusters 132427) POCT-GLUCOSE [id number] 00:15:00 Test Item Value Reference Range Interpretation Comments POC-GLUCOSE METER 193 mg/dL 70-110 H TESTED AT [place] [address] [facility] (test code = HAL [place] 1538) [address] POCT-GLUCOSE [id number] 22:22:00 Test Item Value Reference Range Interpretation Comments POC-GLUCOSE METER 170 mg/dL 70-110 H TESTED AT [place] [address] ([facility] (test code = [place] 1538) [address] POCT-GLUCOSE [id number] 20:17:00 Test Item Value Reference Range Interpretation Comments POC-GLUCOSE METER 179 mg/dL 70-110 H TESTED AT [place] [address] [facility] (test code = [facility] [place] [facility] 1538) [address] BASIC METABOLIC [id number] 19:00:00 Test Item Value Reference Range Interpretation [...] NOT APPLICABLE FOR DIALYSIS PATIEN TS. POCT-GLUCOSE [id number] 18:27:00 Test Item Value Reference Range Interpretation Comments POC-GLUCOSE METER 150 mg/dL 70-110 H TESTED AT [place] [address] (BEAKER) (test code = [facility] [place] 1538) [address] POCT-GLUCOSE [id number] 15:58:00 Test Item Value Reference Range Interpretation Comments POC-GLUCOSE METER 219 mg/dL 70-110 H TESTED AT [place] [address] ([facility]) (test code = [place] [facility] 1538) [address] POCT-GLUCOSE [id number] 14:26:00 Test Item Value Reference Range Interpretation Comments POC-GLUCOSE METER 212 mg/dL 70-110 H TESTED AT [place] [address] ([facility]) (test code = [place] [facility] 1538) [address] POCT-GLUCOSE [id number] 12:23:00 Test Item Value Reference Range Interpretation Comments POC-GLUCOSE METER 261 mg/dL 70-110 H TESTED AT [place] [address] ([facility]) (test code = [place] [facility] 1538) [address] POCT-GLUCOSE [id number] 10:19:00 Test Item Value Reference Range Interpretation Comments POC-GLUCOSE METER 323 mg/dL 70-110 H TESTED AT [place] [address] ([facility]) (test code = [place] [facility] 1538) [address] POCT-GLUCOSE [id number] 08:24:00 Test Item Value Reference Range Interpretation Comments POC-GLUCOSE METER 235 mg/dL 70-110 H TESTED AT [place] [address] ([facility]) (test code = [place] [facility] 1538) [address] POCT-GLUCOSE [id number] 07:10:00 Test Item Value Reference Range Interpretation Comments POC-GLUCOSE METER 244 mg/dL 70-110 H TESTED AT [place] [address] ([facility]) (test code = [place] [facility] 1538) [address] POCT-GLUCOSE [id number] 06:15:00 Test Item Value Reference Range Interpretation Comments POC-GLUCOSE METER 249 mg/dL 70-110 H TESTED AT [place] [address] ([facility]) (test code = [place] [facility] 1538) [address] CBC W/PLT COUNT & AUTO [id number] 06:05:00 Test Item Value Reference Range Interpretation Comments WHITE BLOOD CELL COUNT ([facility]) 11.1 K/ L 4.0-10.0 H (test code = 775) RED BLOOD CELL COUNT ([facility]) 3.12 M/ L 4.20-5.80 L (test [...] 0.00-0.20 (test code = 417) 0.00BASIC METABOLIC [id number] 05:11:00 Test Item Value Reference Range Interpretation [...] S NOT APPLICABLE FOR DIALYSIS PATIEN TS. [id number] 05:05:00 Test Item Value Reference Range Interpretation Comments MAGNESIUM (BEAKER) 2.3 mg/dL 1.6-2.6 Specimen slightly (test code = 627) hemolyzed [id number] 05:05:00 Test Item Value Reference Range Interpretation Comments PHOSPHORUS (BEAKER) 5.9 mg/dL 2.3-4.7 H Specimen slightly (test code = 604) hemolyzed POCT-GLUCOSE [id number] 04:02:00 Test Item Value Reference Range Interpretation Comments POC-GLUCOSE METER 187 mg/dL 70-110 H TESTED AT [facility] 6720 (BEAKER) (test code = [place] [facility] 1538) [address] POCT-GLUCOSE [id number] 02:22:00 Test Item Value Reference Range Interpretation Comments POC-GLUCOSE METER 163 mg/dL 70-110 H TESTED AT [facility] 6720 (BEAKER) (test code = [place] 1538) [address] POCT-GLUCOSE [id number] 00:54:00 Test Item Value Reference Range Interpretation Comments POC-GLUCOSE METER 239 mg/dL 70-110 H TESTED AT [facility] 6720 (BEAKER) (test code = [place] 1538) [id number] POCT-GLUCOSE [id number] 00:11:00 Test Item Value Reference Range Interpretation Comments POC-GLUCOSE METER 29 mg/dL 70-110 LL TESTED AT [place] [address] ([facility]) (test code = [facility] [place] [facility] [id number]) POCT-GLUCOSE [id number] 21:35:00 Test Item Value Reference Range Interpretation Comments POC-GLUCOSE METER 100 mg/dL 70-110 TESTED AT [place] [address] ([facility]) (test code = [facility] 1538) [address] POCT-GLUCOSE [id number] 20:24:00 Test Item Value Reference Range Interpretation Comments POC-GLUCOSE METER 57 mg/dL 70-110 L TESTED AT [place] [address] ([facility]) (test code = [facility] [id number]) BASIC METABOLIC [id number] 18:11:00 Test Item Value Reference Range Interpretation [...] 8.4-10.2 L (test code = 697) [facility] (test 10 mL/min/1.73 ESTIMA REYNA GFR IS code = 1092) sq m NOT ACCURATE CREATININE CLEARANCE IN PREDICTING GLOMERULAR FILTRATION RATE . ESTIMATED GFR I S NOT APPLICABLE FOR DIALYSIS PATIEN TS. POCT-GLUCOSE [id number] 17:33:00 Test Item Value Reference Range Interpretation Comments POC-GLUCOSE METER 87 mg/dL 70-110 TESTED AT [place] [address] ([facility]) (test code = [facility] [place] [facility] [id number]) POCT-GLUCOSE [id number] 17:33:00 Test Item Value Reference Range Interpretation Comments POC-GLUCOSE METER 54 mg/dL 70-110 L Notified R Manny DALTON/TESTED AT ([facility]) (test code = [address] [address]) [facility] [id number] POCT-GLUCOSE [id number] 14:05:00 Test Item Value Reference Range Interpretation Comments POC-GLUCOSE METER 159 mg/dL 70-110 H TESTED AT [facility] 6720 (BEAKER) (test code = HAL Mai [facility] 1538) [address] POCT-GLUCOSE [id number] 12:26:00 Test Item Value Reference Range Interpretation Comments POC-GLUCOSE METER 247 mg/dL 70-110 H TESTED AT [place] [address] (BEAKER) (test code = HAL Mai [facility] 1538) [address] BASIC METABOLIC [id number] 11:20:00 Test Item Value Reference Range Interpretation [...] S NOT APPLICABLE FOR DIALYSIS PATIEN TS. [id number] 11:14:00 Test Item Value Reference Range Interpretation Comments MAGNESIUM (BEAKER) (test code = 2.2 mg/dL 1.6-2.6 627) CBC W/PLT COUNT & AUTO [id number] 11:14:00 Test Item Value Reference Range Interpretation [...] L 0.00-0.20 (test code = 417) 0.00POCT-GLUCOSE [id number] 10:17:00 Test Item Value Reference Range Interpretation Comments POC-GLUCOSE METER 172 mg/dL 70-110 H TESTED AT [facility] 6720 (BEAKER) (test code = HAL PRIEST 1538) 7[address]00 POCT-GLUCOSE [id number] 10:17:00 Test Item Value Reference Range Interpretation Comments POC-GLUCOSE METER 167 mg/dL 70-110 H TESTED AT [place] [address] ([facility]) (test code = [facility] [place] 1538) [address] POCT-GLUCOSE [id number] 10:17:00 Test Item Value Reference Range Interpretation Comments POC-GLUCOSE METER 176 mg/dL 70-110 H TESTED AT [place] [address] ([facility]) (test code = [facility] 1538) [address] [id number] 08:17:00 Test Item Value Reference Range Interpretation [...] L (test code = 2590) VANCOMYCIN LEVEL, [id number] 06:52:00 Test Item Value Reference Range Interpretation Comments VANCOMYCIN RANDOM (BEAKER) (test 12.8 ug/mL code = 523) Reference Range: No NormalsHold further dosing for vancomycin level > 20, alert MD and RphPOCT-GLUCOSE [id number] 06:16:00 Test Item Value Reference Range Interpretation Comments POC-GLUCOSE METER 179 mg/dL 70-110 H [facility] AT [place] [address] [facility] (test code = [facility] 1538) 19566 POCT-GLUCOSE [id number] 05:08:00 Test Item Value Reference Range Interpretation Comments POC-GLUCOSE METER 185 mg/dL 70-110 H TESTED AT [place] [address] ([facility] (test code = [facility] 1538) [address] PTH, [id number] 05:01:00 Test Item Value Reference Range Interpretation Comments PARATHYROID HORMONE INTACT 114.5 pg/mL 8.5-72.5 H (BEAKER) (test code = 577) Effective 08/05/2014: Reference Range ChangeNew: 8.5-72.5 Previous: 15.0-90.0 BASIC METABOLIC [id number] 04:53:00 Test Item Value Reference Range Interpretation [...] S NOT APPLICABLE FOR DIALYSIS PATIEN TS. [id number] 04:52:00 Test Item Value Reference Range Interpretation Comments PHOSPHORUS (BEAKER) (test code = 3.4 mg/dL 2.3-4.7 604) POCT-GLUCOSE [id number] 04:18:00 Test Item Value Reference Range Interpretation Comments POC-GLUCOSE METER 134 mg/dL 70-110 H TESTED AT [place] [address] ([facility]) (test code = [facility] 1538) [address] POCT-GLUCOSE [id number] 03:10:00 Test Item Value Reference Range Interpretation Comments POC-GLUCOSE METER 161 mg/dL 70-110 H TESTED AT [place] [address] ([facility]) (test code = [facility] 1538) 35192 POCT-GLUCOSE [id number] 02:13:00 Test Item Value Reference Range Interpretation Comments POC-GLUCOSE METER 173 mg/dL 70-110 H TESTED AT [place] [address] [facility] (test code = HAL Mai [facility] 1538) [address] BASIC METABOLIC [id number] 01:40:00 Test Item Value Reference Range Interpretation [...] NOT APPLICABLE FOR DIALYSIS PATIEN TS. POCT-GLUCOSE [id number] 01:10:00 Test Item Value Reference Range Interpretation Comments POC-GLUCOSE METER 114 mg/dL 70-110 H TESTED AT [place] [address] [facility] (test code = HAL Mai [facility] 1538) [address]270 POCT-GLUCOSE [id number] 00:44:00 Test Item Value Reference Range Interpretation Comments POC-GLUCOSE METER 152 mg/dL 70-110 H TESTED AT [place] [address] [facility] (test code = [facility] [place] [facility] 1538) [address] POCT-GLUCOSE [id number] 23:07:00 Test Item Value Reference Range Interpretation Comments POC-GLUCOSE METER 162 mg/dL 70-110 H TESTED AT [place] [address] ([facility] (test code = [facility] 1538) [address]43 POCT-GLUCOSE [id number] 22:12:00 Test Item Value Reference Range Interpretation Comments POC-GLUCOSE METER 115 mg/dL 70-110 H TESTED AT [place] [address] ([facility] (test code = [facility] [place] [facility] 1538) 8[address] POCT-GLUCOSE [id number] 21:20:00 Test Item Value Reference Range Interpretation Comments POC-GLUCOSE METER 88 mg/dL 70-110 TESTED AT [place] [address] [facility] (test code = [facility] [address] 1538) POCT-GLUCOSE [id number] 20:10:00 Test Item Value Reference Range Interpretation Comments POC-GLUCOSE METER 109 mg/dL 70-110 TESTED AT [place] [address] ([facility] (test code = [facility] 1538) 8[address]31 HEPATITIS B SURFACE [id number] 19:53:00 Test Item Value Reference Range Interpretation Comments HEPATITIS B SURFACE ANTIGEN (2) Nonreactive Nonreactive (BEAKER) (test code = 2585) BASIC METABOLIC [id number] 19:35:00 Test Item Value Reference Range Interpretation [...] NOT APPLICABLE FOR DIALYSIS PATIEN TS. POCT-GLUCOSE [id number] 19:14:00 Test Item Value Reference Range Interpretation Comments POC-GLUCOSE METER 179 mg/dL 70-110 H TESTED AT [place] [address] (BEAKER) (test code = [facility] [place] 1538) [address] POCT-GLUCOSE [id number] 17:57:00 Test Item Value Reference Range Interpretation Comments POC-GLUCOSE METER 173 mg/dL 70-110 H TESTED AT [place] [id number] (BEAKER) (test code = [facility] 1538) [address] BASIC METABOLIC [id number] 16:42:00 Test Item Value Reference Range Interpretation [...] NOT APPLICABLE FOR DIALYSIS PATIEN TS. POCT-GLUCOSE [id number] 15:59:00 Test Item Value Reference Range Interpretation Comments POC-GLUCOSE METER 289 mg/dL 70-110 H TESTED AT [place] [address] [facility] (test code = [facility] 1538) [address]996 POCT-GLUCOSE [id number] 15:23:00 Test Item Value Reference Range Interpretation Comments POC-GLUCOSE METER 296 mg/dL 70-110 H TESTED AT [place] [address] [facility] (test code = [facility] 1538) [address]39 POCT-GLUCOSE [id number] 15:23:00 Test Item Value Reference Range Interpretation Comments POC-GLUCOSE METER 342 mg/dL 70-110 H TESTED AT [place] [address] ([facility] (test code = [facility] 1538) [address]32 BASIC METABOLIC [id number] 12:33:00 Test Item Value Reference Range Interpretation [...] NOT APPLICABLE FOR DIALYSIS PATIEN TS. POCT-GLUCOSE [id number] 12:23:00 Test Item Value Reference Range Interpretation Comments POC-GLUCOSE METER 231 mg/dL 70-110 H TESTED AT [facility] 6720 (BEAKER) (test code = [facility] [place] [facility] 1538) [address]254 HEMOGLOBIN [id number] 11:38:00 Test Item Value Reference Range Interpretation Comments HEMOGLOBIN A1C (BEAKER) (test code = 9.9 % 4.3-6.1 H 368) POCT-GLUCOSE [id number] 11:09:00 Test Item Value Reference Range Interpretation Comments POC-GLUCOSE METER 212 mg/dL 70-110 H TESTED AT [facility] 6720 (BEAKER) (test code = [facility] 1538) 670[address] BASIC METABOLIC [id number] 10:52:00 Test Item Value Reference Range Interpretation [...] S NOT APPLICABLE FOR DIALYSIS PATIEN TS. [id number] 10:31:00 Test Item Value Reference Range Interpretation Comments MAGNESIUM (BEAKER) (test code = 2.4 mg/dL 1.6-2.6 627) POCT-GLUCOSE [id number] 10:17:00 Test Item Value Reference Range Interpretation Comments POC-GLUCOSE METER 202 mg/dL 70-110 H TESTED AT [facility] 6720 (BEAKER) (test code = [place] 1538) [address] TROPONIN [id number] 10:16:00 Test Item Value Reference Range Interpretation [...] acute neurological disease, and persistent tachyarrhythmia.BLOOD GAS, [id number] 09:27:00 Test Item Value Reference Range Interpretation Comments PH VENOUS (BEAKER) (test code = 7.30 7.32-7.42 L 701) PCO2 VENOUS (BEAKER) (test code 14 mmHg 41-51 LL = 755) PO2 VENOUS (BEAKER) (test code = 72 mmHg 25-40 H 702) O2 SATURATION VENOUS ([facility]) 93.6 % 40.0-70.0 H (test code = 703) HCO3 VENOUS ([facility]) (test code 7 mmol/L 21-29 LL = 705) BASE EXCESS VENOUS ([facility]) -18.4 mmol/L -2.0-3.0 L (test code = 704) PATIENT TEMPERATURE ([facility]) 37.0 C (test code = 1818) FIO2 ([facility]) (test code = 1819) 21.0 % POCT-GLUCOSE [id number] 09:19:00 Test Item Value Reference Range Interpretation Comments POC-GLUCOSE METER 179 mg/dL 70-110 H TESTED AT [place] [address] ([facility]) (test code = HAL Mai [facility] 1538) [address]37 LACTIC ACID, VENOUS, WHOLE [id number] 09:13:00 Test Item Value Reference Range Interpretation Comments LACTATE BLOOD VENOUS (2) ([facility]) 1.5 mmol/L 0.5-2.2 (test code = 2872) Effective 01/20/2016: Units/Reference Range ChangeNew: 0.5-2.2 mmol/L Previous: 5-20 mg/dLKETONE, [id number] 08:51:00 Test Item Value Reference Range Interpretation Comments KETONES, BLOOD ([facility]) (test code 0.0 mmol/L <0.4 = 1103) POCT-GLUCOSE [id number] 08:08:00 Test Item Value Reference Range Interpretation Comments POC-GLUCOSE METER 211 mg/dL 70-110 H TESTED AT [place] [address] ([facility]) (test code = HAL Mai [facility] 1538) 23578 POCT-GLUCOSE [id number] 07:30:00 Test Item Value Reference Range Interpretation Comments POC-GLUCOSE METER 230 mg/dL 70-110 H TESTED AT [place] [address] ([facility]) (test code = HAL Mai [facility] 1538) [address]54 POCT-GLUCOSE [id number] 06:05:00 Test Item Value Reference Range Interpretation Comments POC-GLUCOSE METER 349 mg/dL 70-110 H Notified R Manny DALTON/TESTED ([facility]) (test code = AT [address] 1538) [facility] 7[address] 0 [id number] 05:46:00 Test Item Value Reference Range Interpretation Comments GLUCOSE RANDOM (BEAKER) (test code 472 mg/dL 70-105 HH = 652) Effective 08/05/2014: Reference Range Change-Adult onlyNew: 70-105 Previous: 70-110If last glucose was less than 500, may do bedside glucose instead of serum glucose.[id number] 05:31:00 Test Item Value Reference Range Interpretation Comments POTASSIUM (BEAKER) (test code = 4.8 meq/L 3.5-5.1 379) If last glucose was less than 500, may do bedside glucose instead of serum glucose.KETONE, [id number] 05:16:00 Test Item Value Reference Range Interpretation Comments KETONES, BLOOD (BEAKER) (test code 0.0 mmol/L <0.4 = 1103) POCT-GLUCOSE [id number] 05:00:00 Test Item Value Reference Range Interpretation Comments POC-GLUCOSE METER 456 mg/dL 70-110 HH TESTED AT [place] [address] [facility] (test code = BERTDAVID R [facility] 1538) [address] POCT-GLUCOSE [id number] 04:08:00 Test Item Value Reference Range Interpretation Comments POC-GLUCOSE METER > mg/dL 70-110 HH OUTSIDE ME ASURING (BEAKER) (test code RANGETES REYNA AT [place] [address] = 1538) [facility] [address] [id number] 03:41:00 Test Item Value Reference Range Interpretation Comments GLUCOSE RANDOM (BEAKER) (test code 705 mg/dL 70-105 HH = 652) Effective 08/05/2014: Reference Range Change-Adult onlyNew: 70-105 Previous: 70-110If last glucose was less than 500, may do bedside glucose instead of serum glucose.URINALYSIS W/ REFLEX URINE [id number] 03:02:00 Test Item Value Reference Range Interpretation [...] code = 1584) SOURCE(BEAKER) (test code = 5135) [id number] 02:51:00 Test Item Value Reference Range Interpretation Comments GLUCOSE RANDOM (BEAKER) (test code 684 mg/dL 70-105 HH = 652) Effective 08/05/2014: Reference Range Change-Adult onlyNew: 70-105 Previous: 70-110If last glucose was less than 500, may do bedside glucose instead of serum glucose.COMPREHENSIVE METABOLIC [id number] 02:51:00 Test Item Value Reference Range Interpretation [...] may do bedside glucose instead of serum glucose.[id number] 02:50:00 Test Item Value Reference Range Interpretation Comments THYROID STIMULATING HORMONE 2.15 uIU/mL 0.35-4.94 (BEAKER) (test code = 772) [id number] 02:45:00 Test Item Value Reference Range Interpretation Comments MAGNESIUM (BEAKER) (test code = 2.0 mg/dL 1.6-2.6 627) [id number] 02:45:00 Test Item Value Reference Range Interpretation Comments PHOSPHORUS (BEAKER) (test code = 4.4 mg/dL 2.3-4.7 604) CREATINE KINASE (CK), TOTAL AND [id number] 02:41:00 Test Item Value Reference Range Interpretation Comments CREATINE KINASE TOTAL (BEAKER) 140 U/L 29-200 (test code = 380) CREATINE KINASE-MB (BEAKER) (test 7.2 ng/mL 0.0-6.6 H code = 750) CREATINE KINASE-MB INDEX (BEAKER) 5.1 % (test code = 395) Effective 08/05/2014: CK-MB Reference Range ChangeNew: 0.0-6.6 Previous: 0.0-4.9CK-MB Reference Range:<6.7 Normal6.7-10.0 Borderline>10.0 AbnormalTROPONIN [id number] 02:36:00 Test Item Value Reference Range Interpretation [...] renalfailure, acidosis, acute neurological disease, and persistent tachyarrhythmia.[id number] 02:31:00 Test Item Value Reference Range Interpretation Comments POTASSIUM (BEAKER) (test code = 4.8 meq/L 3.5-5.1 379) If last glucose was less than 500, may do bedside glucose instead of serum glucose.CBC W/PLT COUNT & AUTO [id number] 02:31:00 Test Item Value Reference Range Interpretation [...] 0.00-0.20 (test code = 417) 0.000.640.000.580.000.000.000.00BLOOD GAS, [id number] 02:26:00 Test Item Value Reference Range Interpretation [...] 1819) 30.0 % LACTIC ACID, ARTERIAL, WHOLE [id number] 02:25:00 Test Item Value Reference Range Interpretation Comments LACTATE BLOOD ARTERIAL (2) 4.9 mmol/L 0.5-2.2 H (ANTONIO) (test code = 2874) Effective 01/20/2016: Units/Reference Range ChangeNew: 0.5-2.2 mmol/L Previous: 5-20 mg/dLPOCT-GLUCOSE [id number] 02:18:00 Test Item Value Reference Range Interpretation Comments POC-GLUCOSE METER 493 mg/dL 70-110 HH TESTED AT [facility] 6720 (ANTONIO) (test code = [place] 1538) [address] [id number] 02:17:00 Test Item Value Reference Range Interpretation Comments PARTIAL THROMBOPLASTIN TIME 25.3 seconds 22.5-36.0 (ANTONIO) (test code = 760) PROTHROMBIN TIME/[id number] 02:16:00 Test Item Value Reference Range Interpretation Comments PROTIME (ANTONIO) (test code = 13.2 seconds 11.7-14.7 759) INR ([facility]) (test code = 370) 1.0 <=5.9 RECOMMENDED COUMADIN/WARFARIN INR THERAPY RANGESSTANDARD DOSE: 2.0 - 3.0 Includes: PROPHYLAXIS forvenous thrombosis, systemic embolization; TREATMENT for venous thrombosis and/or pulmonary embolus.HIGH RISK: Target INR is 2.5-3.5 for patients with mechanical heart valves."
--- NOTE | 2021-11-12 15:41 | RAD REPORT ---
EXAM DESCRIPTION: CTAbdomen Pelvis Wo Contrast - 11/12/2021 3:28 pm CLINICAL HISTORY: ABD PAIN COMPARISON: CTSTONE PROTOCOL dated 02/14/2015; Thorax Wo Con dated 10/23/2021 TECHNIQUE: CT of the abdomen and pelvis was performed. All CT scans are performed using dose optimization technique as appropriate and may include automated exposure control or mA/KV adjustment according to patient size. FINDINGS: Lower chest: Moderate to large bilateral effusions with underlying consolidation. Coronary artery calcifications. Liver: No acute abnormality or suspicious lesions. Biliary: No biliary ductal dilatation. Stomach: No significant focal abnormality. Duodenum: No significant focal abnormality. Pancreas: No significant abnormality. Spleen: No significant abnormality. Adrenal: No suspicious lesions. Kidney/ureter: No hydronephrosis. No renal calculi. Retroperitoneum: No retroperitoneal adenopathy. Vascular: No aneurysm. Atherosclerosis of the abdominal aorta and branch vessels. Bowel: Moderate stool in the rectum.. Peritoneum: No ascites or free air. Bladder: Grossly unremarkable. Reproductive: No adnexal masses. Bones: No acute fracture. Other: Body wall edema. Venous collaterals in the abdominal wall. IMPRESSION: No acute intra-abdominal or pelvic finding. Anasarca including moderate to large bilateral pleural effusions.
--- NOTE | 2021-11-12 16:16 | ER ---
Nurse's Notes [facility] Name: Orlando Culp Age: 46 yrs Sex: Male : 1975 Arrival Date: 11/12/2021 Time: 14:57 Bed 17 Private MD: Diagnosis: Abdominal pain, Generalized Presentation: 11/12 14:57 Chief complaint: Patient states: pt was at dialysis and started having abdominal pain, adams blood sugar was high and right arm pain from new graft. Coronavirus screen: Vaccine status: Patient reports receiving the 2nd dose of the covid vaccine. Ebola Screen: Patient denies travel to an Ebola-affected area in the 21 days before illness onset. Initial Sepsis Screen: Does the patient meet any 2 criteria? No. Patient's initial sepsis screen is negative. Does the patient have a suspected source of infection? No. Patient's initial sepsis screen is negative. Risk Assessment: Do you want to hurt yourself or someone else? Patient reports no desire to harm self or others. Onset of symptoms was November 12, 2021. 14:57 Method Of Arrival: EMS: [facility] 14:57 Acuity: DEMARIO 3 adams Triage Assessment: 15:00 General: Appears in no apparent distress. Behavior is calm, cooperative. Pain: adams Complains of pain in abdomen and right arm. Historical: - Allergies: 15:00 PENICILLINS; adams 15:00 Phenergan; adams - PMHx: 15:00 Diabetes - IDDM; dialysis (port in left upper arm); 11/11/21, not working anymore per adams pt; dialysis port right upper arm ( 11/11/21 placed a few weeks per pt ); ESRD; GERD; Hypertension; - Immunization history:: Adult Immunizations up to date. - Social history:: Smoking status: Patient denies any tobacco usage or history of. - Family history:: not pertinent. Screenin:04 Abuse screen: Denies threats or abuse. Denies injuries from another. Nutritional adams screening: No deficits noted. Tuberculosis screening: No symptoms or risk factors identified. Fall Risk Secondary diagnosis (15 points) impaired mobility. Assessment: 15:01 General: Appears in no apparent distress. Behavior is calm, cooperative. Pain: adams Complains of pain in abdomen and right arm. GI: Bowel sounds present X 4 quads. Abd is soft Abdomen is tender to palpation Reports lower abdominal pain. Derm: Skin temperature is warm. Vital Signs: 14:57 BP 130 / 65; Pulse 65; Resp 18; Temp 97.6(T); Pulse Ox 98% on R/A; Weight 55 kg; Height adams 5 ft. 6 in. (167.64 cm); 17:19 BP 118 / 60; Pulse 70; Resp 18; Pulse Ox 98% on R/A; adams 18:33 BP 109 / 61; Pulse 60; Resp 16; Pulse Ox 97% on 2 lpm NC; adams 14:57 Body Mass Index 19.57 (55.00 kg, 167.64 cm) adams ED Course: 14:57 Patient arrived in ED. adams 15:00 Jam Antunez MD is Attending Physician. [facility] 15:00 Triage completed. adams 15:00 Arm band placed on. adams 15:04 Patient has correct armband on for positive identification. Bed in low position. adams 15:04 No provider procedures requiring assistance completed. adams 15:06 EKG done, by ED staff. [facility] 15:06 EKG done, reviewed by Jam Antunez MD. mb7 15:27 Inserted saline lock: 22 gauge in left wrist, using aseptic technique. adams 15:28 CT Abd/Pelvis - Without Contrast In Process Unspecified. EDMS 16:42 UPPER EXTREMITY VENOUS UNILATE In Process Unspecified. EDMS 16:42 Upper Ext Artery Uni Luis Alfredo In Process Unspecified. EDMS 17:42 Troponin High Sensitivity Sent. adams 17:44 Inserted saline lock:. adams 19:12 Ed Ramos, RN is Primary Nurse. sv1 Administered Medications: No medications were administered Outcome: 16:16 Discharge ordered by . ma2 18:37 Discharge ordered by . ma2 19:49 Patient left the ED. sv1 Signatures: Dispatcher [employer] EDMS Jam Antunez MD MD [facility] Ashley Soria Ed Cormier, RN RN sv1 Au-StagerLisa RN RN
--- NOTE | 2021-11-12 16:16 | EDPHYS ---
Physician Documentation [facility] Name: Orlando Culp Age: 46 yrs Sex: Male : 1975 Arrival Date: 11/12/2021 Time: 14:57 Bed 17 Private MD: ED Physician Jam Antunez HPI: 11/12 16:13 This 46 yrs old Male presents to ER via EMS with complaints of Abdominal pain. ma2 16:13 46-year-old male ESRD insulin-dependent diabetes, presents with generalized abdominal ma2 pain which he had chronically for 2 months with a frequent visit to the ER for similar pain. Patient was here last night got evaluated and discharged. Patient went to dialysis, and he was complaining of abdominal pain so he was brought here by EMS again patient said that the pain is unchanged from his baseline. Butcher'S Assistant called and discussed with Rik WINKLER in ER and advised to get BMP and discharge of noncritical and they will dialyze him tomorrow as well.. Historical: - Allergies: 15:00 PENICILLINS; adams 15:00 Phenergan; adams - PMHx: 15:00 Diabetes - IDDM; dialysis (port in left upper arm); 11/11/21, not working anymore per adams pt; dialysis port right upper arm ( 11/11/21 placed a few weeks per pt ); ESRD; GERD; Hypertension; - Immunization history:: Adult Immunizations up to date. - Social history:: Smoking status: Patient denies any tobacco usage or history of. - Family history:: not pertinent. ROS: 16:13 Constitutional: Negative for fever, chills, and weight loss. ma2 16:13 All other systems are negative. Exam: 16:13 Constitutional: This is a well developed, well nourished patient who is awake, alert, ma2 and in no acute distress. Head/Face: Normocephalic, atraumatic. Eyes: Pupils equal round and reactive to light, extra-ocular motions intact. Lids and lashes normal. Conjunctiva and sclera are non-icteric and not injected. Cornea within normal limits. Periorbital areas with no swelling, redness, or edema. ENT: Nares patent. No nasal discharge, no septal abnormalities noted. Tympanic membranes are normal and external auditory canals are clear. Oropharynx with no redness, swelling, or masses, exudates, or evidence of obstruction, uvula midline. Mucous membranes moist. Neck: Trachea midline, no thyromegaly or masses palpated, and no cervical lymphadenopathy. Supple, full range of motion without nuchal rigidity, or vertebral point tenderness. No Meningismus. Chest/axilla: Normal chest wall appearance and motion. Nontender with no deformity. No lesions are appreciated. Cardiovascular: Regular rate and rhythm with a normal S1 and S2. No gallops, murmurs, or rubs. Normal PMI, no JVD. No pulse deficits. Respiratory: Lungs have equal breath sounds bilaterally, clear to auscultation and percussion. No rales, rhonchi or wheezes noted. No increased work of breathing, no retractions or nasal flaring. Abdomen/GI: Soft, non-tender, with normal bowel sounds. No distension or tympany. No guarding or rebound. No evidence of tenderness throughout. Skin: Warm, dry with normal turgor. Normal color with no rashes, no lesions, and no evidence of cellulitis. MS/ Extremity: Right upper extremity AV fistula dry, nontender with no warmth or redness there is mild swelling at the site with recent surgical scar dry healed no induration. Pulses equal, no cyanosis. Neurovascular intact. Full, normal range of motion. Neuro: Awake and alert, GCS 15, oriented to person, place, time, and situation. Cranial nerves II-XII grossly intact. Motor strength 5/5 in all extremities. Sensory grossly intact. Cerebellar exam normal. Normal gait. Vital Signs: 14:57 BP 130 / 65; Pulse 65; Resp 18; Temp 97.6(T); Pulse Ox 98% on R/A; Weight 55 kg; Height adams 5 ft. 6 in. (167.64 cm); 17:19 BP 118 / 60; Pulse 70; Resp 18; Pulse Ox 98% on R/A; adams 18:33 BP 109 / 61; Pulse 60; Resp 16; Pulse Ox 97% on 2 lpm NC; adams 14:57 Body Mass Index 19.57 (55.00 kg, 167.64 cm) adams MDM: 15:00 Patient medically screened. ma2 18:33 ED course: Critical lab values reported to Dr Antunez. kb 18:37 Differential diagnosis: gastritis, gastroesophageal reflux disease, Irritable bowel ma2 syndrome, non-specific abd pain. Data reviewed: vital signs, nurses notes. Counseling: I had a detailed discussion with the patient and/or guardian regarding: the historical points, exam findings, and any diagnostic results supporting the discharge/admit diagnosis, the presence of at least one elevated blood pressure reading (>120/80) during this emergency department visit, the need for outpatient follow up. Response to treatment: the patient's symptoms have markedly improved after treatment. 11/12 15:03 Order name: Basic Metabolic Panel; Complete Time: 18:36 [facility] 11/12 15:03 Order name: CBC with Diff; Complete Time: 17:57 [facility] 11/12 15:03 Order name: Hepatic Function; Complete Time: 18:36 [facility] 11/12 15:03 Order name: Lipase; Complete Time: 18:36 [facility] 11/12 15:13 Order name: CT Abd/Pelvis - Without Contrast; Complete Time: 16:12 [facility] 11/12 15:54 Order name: Troponin High Sensitivity; Complete Time: 18:36 [facility] 11/12 15:03 Order name: IV Saline Lock; Complete Time: 16:32 [facility] 11/12 15:03 Order name: Labs collected and sent; Complete Time: 17:42 [facility] 11/12 16:00 Order name: UPPER EXTREMITY VENOUS UNILATE; Complete Time: 18:36 EDMS 11/12 16:01 Order name: Upper Ext Artery Uni Luis Alfredo; Complete Time: 18:36 EDMS Administered Medications: No medications were administered Disposition Summary: 11/12/21 18:37 Discharge Ordered Location: Home(11/12/21 18:37) ma2 Condition: Stable(11/12/21 18:37) ma2 Diagnosis - Abdominal pain, Generalized(11/12/21 18:37) ma2 Followup: ma2 - With: Private Physician - When: Tomorrow - Reason: Further diagnostic work-up, Recheck today's complaints, Continuance of care Discharge Instructions: - Discharge Summary Sheet ma2 - Abdominal Pain, Adult ma2 Forms: - Medication Reconciliation Form ma2 - Thank You Letter ma2 - Antibiotic Education ma2 - Prescription Opioid Use ma2 Signatures: Dispatcher [employer] EDMS Anne-Marie Kendrick FNP-Marcin SALAZAR-CkJam Silva MD MD ma2 Lisa Abarca RN RN adams Corrections: (The following items were deleted from the chart) 15:22 15:13 Urine Dipstick-Ancillary ordered. ma2 adams 16:00 15:54 Extremity Venous Uni Ltd+[email or web address] ordered. EDMS EDMS 16:01 15:54 Lower Extremity Artery Uni Ltd+[email or web address] ordered. EDMS EDMS 16:16 16:16 Home ma2 ma2 16:16 16:16 Stable ma2 ma2 16:16 16:16 Abdominal pain, Generalized ma2 ma2
[2021-11-12 17:54] LABS: Absolute Lymphocytes (CBC) 0.6 K/uL (0.7-4.9); Hematocrit 33.2 % (39.6-49.0); Lymphocytes % 5.5 % (15.3-44.8); MPV 9.2 fL (7.6-11.3); RBC Red Blood Cell Count 3.42 M/uL (4.33-5.43)
--- NOTE | 2021-11-12 18:09 | RAD REPORT ---
EXAM DESCRIPTION: US - UPPER EXTREMITY VENOUS UNILATE - 11/12/2021 5:24 pm CLINICAL HISTORY: PAIN COMPARISON: Hemodialysis Graft dated 10/23/2021 FINDINGS: Color Doppler, grayscale, and spectral analysis was performed. The right internal jugular vein, brachial vein, basilic vein, axillary vein are compressible and nega tive for venous thrombosis. The right cephalic vein graft is patent proximally and distally. The anas tomosis was unable to be imaged due to the patient's open wound. IMPRESSION: No right upper extremity venous thrombosis is identified. The anastomosis at the patient 's graft was unable to be imaged due to the patient's overlying wound. The remainder of the graft is patent.
--- NOTE | 2021-11-12 18:17 | RAD REPORT ---
EXAM DESCRIPTION: US - Upper Ext Artery Uni Luis Alfredo - 11/12/2021 5:24 pm CLINICAL HISTORY: PAIN COMPARISON: UPPER EXTREMITY VENOUS UNILATE dated 11/12/2021; Thorax Wo Con dated 10/23/2021 FINDINGS: Color Doppler, grayscale, and spectral analysis was performed. Elevated velocities are present within the right subclavian and axillary arteries (PSV 201 cm/s and 2 10 cm/s, respectively). The brachial, radial, and ulnar arteries have normal velocities. Moderate plaque is present within th e right radial and ulnar arteries. There is monophasic flow within all the vessels. 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
[2021-11-12 18:27] LABS: Albumin 2.8 g/dL (3.4-5.0); Bilirubin Direct 0.1 mg/dL (0-0.2); Bilirubin Total 0.5 mg/dL (0.2-1.0); Protein, Total 6.2 g/dL (6.4-8.2)
[2021-11-12 18:28] LABS: Potassium 5.8 mmol/L (3.5-5.1)
[2021-11-12 20:28] VITALS: TEMP 97.6
[2021-11-12 20:34] VITALS: BP 109/61; O2SAT 97
== END 2021-11-12 19:49 | disposition home or self-care (01) ==
LOC: ER 14:49
DX: R10.84 Generalized abdominal pain (principal); E11.22 Type 2 diabetes mellitus with diabetic chronic kidney disease; I12.0 Hypertensive chronic kidney disease with stage 5 chronic kidney disease or end stage renal disease; N18.6 End stage renal disease; Z99.2 Dependence on renal dialysis; Z88.0 Allergy status to penicillin; Z88.8 Allergy status to other drugs, medicaments and biological substances
CPT/HCPCS: 36415; 74176; 80048; 80076; 83690; 84484; 85025; 93005; 93931; 93971; 99284